=== PATIENT | female | born 1935 | race Caucasian/White ===

== ENCOUNTER → 2016-08-13 | Outpatient (CLI) | payer MEDICARE ==
[~2016-08-13] MED LIST: ASP81TEC; ASP81TEC PO; ATOR40TA; ATOR40TA PO; DCS100C PO; DIGO250T96; DIGO250T96 PO; EST.625T; EST.625T PO; ESTR42.52 VG; FERR-57 PO; FRSM40T PO; FURO40TA4 PO; HYDR-34 PO; LORA1TAB PO; MAGN-47 PO; MAGN500T4; MAGN500T4 PO; MELO-195 PO; MULT-608; MULT-856 PO; NA P133E35 PR; ONDA-42 PO; PNT40TEC PO; SCR1T1 PO; SERT25TA; SERT50TA PO; SPRN25T; SPRN25T PO; SULF1TAB38 PO; VALS80TA; VLS80C PO; WRF5T PO
[2016-08-13 11:46] LABS: BASOPHILS % (AUTO) 0 % (0-10); EOSINOPHILS # (AUTO) 0.2 10^3/uL (0.0-0.3); EOSINOPHILS % (AUTO) 1 % (0-10); LYMPHOCYTES # (AUTO) 2.5 X 10^3 (1.0-4.0); LYMPHOCYTES % (AUTO) 16 % (12-44); MEAN CORPUSCULAR HEMOGLOBIN 28 PG (25-34); MEAN CORPUSCULAR HGB CONC 32 G/DL (32-36); MEAN CORPUSCULAR VOLUME 88 FL (80-99); MEAN PLATELET VOLUME 9.9 FL (7.4-10.4); MONOCYTES # (AUTO) 1.5 X 10^3 (0.0-1.0); MONOCYTES % (AUTO) 10 % (0-12); NEUTROPHILS # (AUTO) 11.2 X 10^3 (1.8-7.8); NEUTROPHILS % (AUTO) 73 % (42-75); PLATELET COUNT 321 10^3/uL (130-400); RED BLOOD COUNT 4.73 10^6/uL (4.35-5.85); RED CELL DISTRIBUTION WIDTH 14.8 % (10.0-14.5); WHITE BLOOD COUNT 15.4 10^3/uL (4.3-11.0)
--- NOTE | 2016-08-13 12:37 | Diagnostic Imaging Report ---
INDICATION: Cough and congestion. Dyspnea. COMPARISON: 01/08/2016 FINDINGS: Frontal and lateral radiographic views of the chest were obtained and showed normal cardiac silhouette and pulmonary vasculature. Pulmonary interstitium is diffusely prominent. This however, appears to be on a chronic senescent basis. There is no alveolar consolidation, large effusion, nor pneumothorax. Bony structures show no gross acute abnormalities. IMPRESSION: 1. No acute cardiopulmonary process. Dictated by: Dictated on workstation # [id number]
[2016-08-13 12:50] LABS: BAND NEUTROPHILS 0 %; NEUTROPHILS % (MANUAL) 77 %
[2016-08-13 12:51] LABS: BASOPHILS % (MANUAL) 1 %; EOSINOPHILS % (MANUAL) 2 %; LYMPHOCYTES % (MANUAL) 15 %
== END ==
LOC: LAB 11:31
PROVIDERS: ATTEND Family Medicine
DX: R05 Cough (principal); R09.89 Other specified symptoms and signs involving the circulatory and respiratory systems
CPT/HCPCS: 36415; 71020; 85007; 85027

== ENCOUNTER → 2016-08-25 | Outpatient (CLI) | payer MEDICARE ==
[2016-08-25 12:27] LABS: ANION GAP 8 MMOL/L (5-14); BLOOD UREA NITROGEN 19 MG/DL (7-18); BUN/CREATININE RATIO 22; CALCIUM 9.2 MG/DL (8.5-10.1); CARBON DIOXIDE 28 MMOL/L (21-32); CHLORIDE 100 MMOL/L (98-107); CREATININE SERUM 0.85 MG/DL (0.60-1.30); GFR ESTIMATED > 60; GLUCOSE 91 MG/DL (70-105); POTASSIUM 4.1 MMOL/L (3.6-5.0); SODIUM 136 MMOL/L (135-145)
[2016-08-26 03:31] LABS: IGE DETAIL 21.1 IU/mL
[2016-08-26 07:34] LABS: INT IGE See Footnote
== END ==
LOC: LAB 11:37
PROVIDERS: ATTEND Internal Medicine Critical Care Medicine
DX: J43.8 Other emphysema (principal); L93.2 Other local lupus erythematosus; R06.02 Shortness of breath
CPT/HCPCS: 36415; 80048; 82785; 86038; 86430

== ENCOUNTER → 2016-10-06 | Outpatient (CLI) | payer MEDICARE ==
--- NOTE | 2016-10-07 19:22 | Diagnostic Imaging Report ---
Bilateral screening mammogram The current study was also evaluated with a Computer Aided Detection (CAD) system. Indication: Screening. No current complaints stated on the questionnaire. COMPARISON: 09/12/14 FINDINGS: The breasts are composed of scattered fibroglandular densities. Occasional benign-appearing calcifications are seen. Allowing for technique and positional differences, no suspicious change is seen. IMPRESSION: No significant change. ACR BI-RADS Category 2: Benign findings. Result letter will be mailed to the patient. Note: At least 10% of breast cancer is not imaged by mammography. Dictated by: Dictated on workstation # [id number]
== END ==
LOC: RAD 12:34
PROVIDERS: ATTEND Obstetrics & Gynecology
DX: Z12.31 Encounter for screening mammogram for malignant neoplasm of breast (principal)
CPT/HCPCS: 77067

== ENCOUNTER → 2016-10-06 | Outpatient (CLI) | payer MEDICARE ==
[~2016-10-06] MED LIST changes: +CATHETER FLUSH 10 ML SYR IV PRN; +IOHEXOL 350 MG/ML 100 ML (OMNIPAQUE 350) VIAL IV ONE; +NS 100 ML (IVPB) BAG IV ONE
--- NOTE | 2016-10-06 15:03 | Diagnostic Imaging Report ---
PROCEDURE: CT chest with contrast only. TECHNIQUE: Multiple contiguous axial images were obtained through the chest after administration of intravenous contrast. INDICATION: Shortness of breath. 75 mL of Omnipaque 350 is administered intravenously. COMPARISON: 01/22/2016. FINDINGS: Nonspecific interstitial scarring is seen in the lung bases bilaterally. There is no honeycombing. The findings are similar to 01/22/2016 with no evidence of progression. There is no significant consolidation, mass or suspicious nodule seen. A 5 mm stable nodule in the right upper lobe and another 4 mm nodule along the right major fissure are seen without change. Continued followup is recommended. There are calcified granulomas in the alireza and mediastinum with no noncalcified significantly enlarged lymph node seen otherwise. No enlarged lymph nodes in the axilla seen. The thoracic aorta is normal in caliber. The heart size is normal. No pericardial or pleural effusion seen. The osseous structures appear grossly unremarkable. IMPRESSION: 1. Nonspecific bilateral fibrotic changes in the mid and lower lung zones similar to 01/22/2016. 2. Stable nonspecific nodules up to 5 mm in size in the right upper lobe and along the right major fissure. Dictated by: Dictated on workstation # [id number]
== END ==
LOC: RAD 12:32
PROVIDERS: ATTEND Nurse Practitioner Family
DX: J84.112 Idiopathic pulmonary fibrosis (principal); R91.8 Other nonspecific abnormal finding of lung field; J45.909 Unspecified asthma, uncomplicated; J44.9 Chronic obstructive pulmonary disease, unspecified
CPT/HCPCS: 71260

== ENCOUNTER 2016-11-17 07:06 | Day surgery (SDC) | payer MEDICARE ==
[2016-11-17] VITALS (9 sets, daily range): BP systolic 133–147; BP diastolic 62–82
[~2016-11-17] VITALS: Ht 162.6 cm; Wt 78.5 kg
[~2016-11-17 07:06] MED LIST changes: -CATHETER FLUSH 10 ML SYR IV PRN; +HEParin (CATH LAB) 2,000 ML IV ONE; -IOHEXOL 350 MG/ML 100 ML (OMNIPAQUE 350) VIAL IV ONE; -NS 100 ML (IVPB) BAG IV ONE; +NS IV 1000 ML 1,000 ML ONE
[2016-11-17 07:37] LABS: MEAN PLATELET VOLUME 10.1 FL (7.4-10.4); RED BLOOD COUNT 4.98 10^6/uL (4.35-5.85); RED CELL DISTRIBUTION WIDTH 14.4 % (10.0-14.5); WHITE BLOOD COUNT 10.6 10^3/uL (4.3-11.0)
[2016-11-17] MEDS ORDERED: NS IV 1000 ML 1,000 ML IV SCH ×2 (07:45→10:52)
[2016-11-17 07:47] LABS: INR 0.9 (0.8-1.4); PROTHROMBIN TIME PATIENT 11.5 SEC (12.2-14.7)
[2016-11-17 07:56] LABS: ALANINE AMINOTRANSFERASE 25 U/L (0-55); ALBUMIN 4.2 GM/DL (3.2-4.5); ANION GAP 14 MMOL/L (5-14); ASPARTATE AMINO TRANSFERASE 24 U/L (5-34); BILIRUBIN,TOTAL 0.7 MG/DL (0.1-1.0); BLOOD UREA NITROGEN 11 MG/DL (7-18); BUN/CREATININE RATIO 14; CARBON DIOXIDE 23 MMOL/L (21-32); CHLORIDE 101 MMOL/L (98-107); CHOLESTEROL 235 MG/DL (< 200); CREATININE SERUM 0.78 MG/DL (0.60-1.30); DIRECT LDL 96 MG/DL (1-129); GFR ESTIMATED > 60; GLUCOSE 96 MG/DL (70-105); POTASSIUM 3.8 MMOL/L (3.6-5.0); SODIUM 138 MMOL/L (135-145); TOTAL PROTEIN 8.3 GM/DL (6.4-8.2); TRIGLYCERIDES 449 MG/DL (<150); VLDL CHOLESTEROL 90 MG/DL (5-40)
[2016-11-17 08:01] LABS: DIGOXIN 0.47 NG/ML (0.80-2.00)
[2016-11-17] MEDS ORDERED: ACET-2267 PO (08:30)
[2016-11-17] MEDS ORDERED: UMEC62.5 IH (08:30)
[2016-11-17] MEDS ORDERED: OMEP20CA12 PO (08:30)
[2016-11-17] MEDS ORDERED: ESTR0.5T PO (08:30)
[2016-11-17] MEDS ORDERED: FLUT1BLS IH (08:30)
[2016-11-17] MEDS ORDERED: fentaNYL INJECTION 100 MCG/2 ML AMP ONE (09:33)
[2016-11-17] MEDS ORDERED: MIDAZOLAM 5 MG/5 ML (VERSED) VIAL ONE (09:33)
[2016-11-17] MEDS ORDERED: diphenhydrAMINE 50 MG/ML INJ (BENADRYL) ONE (09:33)
--- NOTE | 2016-11-17 09:49 | Cardiac Procedure Note-CS/ASA ---
Pre-Procedure Note Pre-Op Procedure Note H&P Reviewed The H&P was reviewed, patient examined and no changes noted. Date H&P Reviewed: Nov 17, 2016 Time H&P Reviewed: 09:49 Conscious Sedation Pre-Proced Time Reviewed: 09:49 ASA Class: 3 Airway Mallampati Classification: (ass[place] and sioux appropriate class) I. II. III, IV Lungs Heart ASA score ASA 1: a normal healthy patient ASA 2: a patient with a mild systemic disease (mid diabetes, controlled hypertension, obesity ASA 3: a patient with a severe systemic disease that limits activity (angina , COPD, prior Myocardial infarction) ASA 4: a patient with an incapacitating disease that is a constant threat to life (CHF, renal failure) ASA 5: a moribund patient not expected to survive 24 hrs. (ruptured aneurysm) ASA 6: a declared brain patient whose organs are being harvested. For emergent operations, add the letter E after the classification Grade 2 Sedation Plan: Analgesia, Amnesia, Plan communicated to team members, Discussed options with patient/fam, Discussed risks with patient/fam Note The patient is an appropriate candidate to undergo the planned procedure, sedation, and anesthesia. The patient immediately re-assessed prior to indication. TRISHA WANG MD FACP FAC CCDS Nov 17, 2016 09:49
--- NOTE | 2016-11-17 10:55 | Discharge Inst-Post CATH ---
Discharge Inst-CATH Post Cardiac Cath D/C Inst Follow Up/Plan F/u with Dr Plunkett in 2-3 weeks CARDIAC CATH DISCHARGE INSTRUCTIONS *Hold Metformin for 48 hours post heart cath. ACTIVITY * Go Home directly and rest. * Limit activity of the leg (or wrist if it was used) for 7 days including aerobics, swimming, jogging, bicycling, etc. * Restrict stair-climbing for 7 days if possible, if not, climb up with your non -cath leg, then bring together on the same step. * Avoid lifting, pushing, pulling or excessive movement of the affected extremity for 7 days. * Customary sexual activity may be resumed after 2 days-use caution not to use a position that strains or causes pain to the affected extremity. * No driving for 24 hours. * NO SMOKING. * Avoid straining for bowel movements for 7 days. * Gentle walking on level ground is allowed. * Returning to work will depend on the type of procedure and the results. Your doctor will discuss this with you. CALL YOUR DOCTOR FOR ANY OF THE FOLLOWING: *If bleeding from the puncture site occurs- Apply gentle pressure to site with clean cloth and call your doctor or EMS. * If a knot or lump forms under the skin, increases in size, or causes pain. * If bruising appears to be worsening or moving further down your leg instead of disappearing. * Temperature above 101 F. CARE OF YOUR GROIN INCISION; * Bruising or purple discoloration of the skin near the puncture site is common. * You may shower only, no bathtub bathing for 5 days. Be careful to avoid slipping as your leg may feel stiff. * If a closure device was used on your femoral artery, please see the attached guide regarding care of the device and your leg. * REMOVE the dressing from your groin the next day after your procedure in the shower. CARE OF YOUR WRIST INCISION; * Bruising or purple discoloration of the skin near the puncture site is common. * You may shower. * DO NOT submerge wrist. * Remove dressing in 24 hours. TRISHA PLUNKETT MD [facility] CCDS Nov 17, 2016 10:55
--- NOTE | 2016-11-17 10:56 | Discharge Inst-Cardiology ---
Discharge Inst-Cardiac Discharge Medications Continued Medications: Acetaminophen (Tylenol Extra Strength) 500 Mg Tablet 500-1000 MG PO Q4H PRN for PAIN-MILD, TAB Aspirin (Aspirin Ec 81 Mg) 81 Mg Tabec 81 MG PO DAILY, TAB Digoxin (Lanoxin 0.25 Mg) 0.25 Mg Tab 0.25 MG PO HS, TAB Estradiol (Estradiol Tablet) 0.5 Mg Tablet 0.5 MG PO DAILY, TAB Fluticasone/Vilanterol (Breo Ellipta 200-25 Mcg INH) 1 Each Blst.w.dev 1 PUFF IH DAILY Furosemide (Lasix Tab) 40 Mg Tab 40 MG PO DAILY PRN for SWELLING, TAB Multivits W-Fe,Other Min/Lut (Centrum Silver Ultra Women Tab) 1 Each Tablet 1 TAB PO DAILY, TAB Omeprazole (Omeprazole) 20 Mg Capsule.dr 20 MG PO DAILY, CAP Sertraline Hcl (Zoloft) 50 Mg Tablet 25 MG PO DAILY, TAB TAKES 1/2 (50MG) TABLET Umeclidinium Grover (Incruse Ellipta) 62.5 Mcg Blst.w.dev 1 PUFF IH HS Valsartan (Diovan 80 Mg) 80 Mg Tablet 80 MG PO DAILY, TAB TRISHA WANG MD FACP FAC CCDS Nov 17, 2016 10:56
[2016-11-17] MEDS ORDERED: PATIENT MAY USE OWN MEDS, ALL PO SCH (11:00)
--- NOTE | 2016-11-17 12:29 | CARDIAC CATHETERIZATION ---
DATE OF SERVICE: 11/17/2016 CARDIAC CATHETERIZATION The patient is an 81-year-old lady who has been experiencing increasing shortness of breath. This has progressed to the point where she feels short of breath, at least to some degree, even at rest. Complete heart catheterization was recommended and carried out today after having obtained an informed consent. PROCEDURE: She was brought to the cardiac catheterization laboratory in a fasting state. Right groin was prepared and draped in the usual sterile fashion. Lidocaine 1% for local anesthesia. Modified Seldinger technique was used to advance a 5-Guamanian sheath in the right femoral artery and a 7 Guamanian sheath in right femoral vein. A 7-Guamanian Henderson-Matthew catheter was used to carry out right heart catheterization and to measure oxygen saturation in the various heart chambers. The Henderson-Matthew catheter was then removed. The arterial sheath was used to advance a 5-Guamanian pigtail catheter into the left ventricle. Left heart pressures were measured. Left ventricular angiography was carried out. The catheter was pulled back to the ascending aorta and then removed. A 5-Guamanian and JL4 catheter for left coronary angiography. A 5-Guamanian JR4 catheter for right coronary angiography. A 5-Guamanian pigtail catheter was used for left heart catheterization and left ventricular angiography. At the end of the procedure, angiography of the right femoral artery was carried out through the sheath. Mynx was used to achieve hemostasis. She tolerated the procedure well. HEMODYNAMICS: Pulmonary artery pressure was 31/10 with a mean of 17 mmHg. Mean pulmonary wedge pressure was 4 mmHg. Right ventricular pressure was 32/3. Right atrial mean pressure was 3. Left ventricular end-diastolic pressure was 10 mmHg. There was no significant pressure gradient on pullback across the aortic valve. Ascending aortic pressure was 141/73 with a mean of 101 mmHg. Cardiac output by thermodilution was 4.03. Cardiac index by thermodilution was 2.19. Oxygen saturation was measured in the various right heart chambers and there was no evidence of any significant difference between the right heart chambers. Thus, there was no evidence of any significant intracardiac shunt. LEFT VENTRICULAR ANGIOGRAPHY: Left ventricular angiography was carried out in the right anterior oblique projection. Global left ventricular systolic function is normal. Left ventricular ejection fraction is approximately 60%. There does not appear to be significant mitral regurgitation. CORONARY ANGIOGRAPHY: Left main coronary artery, left anterior descending artery, left circumflex artery, and right coronary artery are all free of angiographically significant disease. The right coronary artery is dominant. CONCLUSIONS: 1. No angiographically significant coronary artery disease. 2. Normal global left ventricular systolic function with ejection fraction approximately 60%. 3. Normal right heart pressures. 4. Normal left ventricular end diastolic pressure. DISCUSSION AND RECOMMENDATIONS: Based on the results of the study, shortness of breath does not appear to be of cardiac origin. Continuing risk factor modification is advised. Outpatient followup is advised. Job ID: [id number] DocumentID: [id number] Dictated Date: 11/17/2016 10:49:34 Ammonia Worker Date: 11/17/2016 11:39:36 Dictated By: TRISHA WANG MD, MA, FACP, FACC,
== END 2016-11-17 14:00 | disposition home or self-care (01) ==
LOC: CATH 07:06 → SURG 11:13 → CATH 14:00
PROVIDERS: ATTEND Internal Medicine Cardiovascular Disease
DX: R06.02 Shortness of breath (principal); I25.10 Atherosclerotic heart disease of native coronary artery without angina pectoris; E78.1 Pure hyperglyceridemia; I44.7 Left bundle-branch block, unspecified; I47.1 Supraventricular tachycardia; J45.909 Unspecified asthma, uncomplicated; F32.9 Major depressive disorder, single episode, unspecified; Z79.899 Other long term (current) drug therapy
CPT/HCPCS: 36415; 80053; 80061; 80162; 82810; 85027; 85610; 85730; 87081; 93005; 93460

== ENCOUNTER 2017-01-07 10:00 | Outpatient (RCR) | payer MEDICARE ==
[~2017-01-07 10:00] MED LIST changes: +ACET-2267 PO; +ESTR0.5T PO; +FLUT1BLS IH; -HEParin (CATH LAB) 2,000 ML IV ONE; -NS IV 1000 ML 1,000 ML ONE; +OMEP20CA12 PO; +UMEC62.5 IH
== END 2017-01-09 | disposition home or self-care (01) ==
LOC: PULM 10:00
PROVIDERS: ATTEND Nurse Practitioner Family
DX: R06.02 Shortness of breath; J45.909 Unspecified asthma, uncomplicated; J44.9 Chronic obstructive pulmonary disease, unspecified; I27.2 Other secondary pulmonary hypertension
CPT/HCPCS: 99211

== ENCOUNTER 2017-02-16 10:00 | Outpatient (RCR) | payer MEDICARE, OTHER | END 2017-04-12 | disposition home or self-care (01) | LOC: PULM 10:00 | PROVIDERS: ATTEND Nurse Practitioner Family | DX: J44.9 Chronic obstructive pulmonary disease, unspecified (principal); J45.909 Unspecified asthma, uncomplicated; R06.02 Shortness of breath; I27.20 Pulmonary hypertension, unspecified ==

== ENCOUNTER → 2017-03-13 | Outpatient (CLI) | payer MEDICARE ==
--- NOTE | 2017-03-13 17:21 | Diagnostic Imaging Report ---
INDICATION: Knee pain after fall. EXAMINATION: Four views of the right knee were obtained. FINDINGS: There is moderate three compartment osteoarthritic change. There is no fracture or dislocation. Soft tissues are unremarkable. IMPRESSION: Moderately severe three compartment osteoarthritic change. Dictated by: Dictated on workstation # [id number]
== END ==
LOC: RAD 16:47
PROVIDERS: ATTEND Nurse Practitioner Family
DX: M17.11 Unilateral primary osteoarthritis, right knee (principal)
CPT/HCPCS: 73564

== ENCOUNTER → 2017-09-20 | Outpatient (CLI) | payer MEDICARE, OTHER ==
[~2017-09-20] MED LIST changes: +IOHEXOL 350 MG/ML 100 ML (OMNIPAQUE 350) VIAL IV ONE; +NS 250 ML (IVPB) BAG IV ONE
[2017-09-20 10:17] LABS: BUN/CREATININE RATIO 18; CREATININE SERUM 0.79 MG/DL (0.60-1.30); GFR ESTIMATED > 60
--- NOTE | 2017-09-20 10:49 | Diagnostic Imaging Report ---
PROCEDURE: CT chest with contrast only. TECHNIQUE: Multiple contiguous axial images were obtained through the chest after administration of intravenous contrast. INDICATION: Emphysematous bronchitis. Pulmonary nodules. COMPARISON: CTA chest 01/22/2016. CT chest with IV contrast 10/06/2016. FINDINGS: Moderate emphysematous changes both lungs. Reticular interstitial opacities in the peripheral lungs are greatest in the lung bases and lingula. No definite honeycombing. Solid pulmonary nodule in the right upper lobe measuring 0.5 cm (series 2, image 25). Solid pulmonary nodule along the right major fissure measuring 0.3 cm (image 26). Solid pulmonary nodule in the right middle lobe measuring 0.5 cm (image 33). Solid pulmonary nodule in the right lower lobe measuring 0.5 cm (image 41). No new pulmonary nodules. No endobronchial lesions. No pleural effusion or pneumothorax. Prominent mediastinal lymph nodes measuring up to 1.0 cm in short axis dimension and are stable. No hilar or axillary lymphadenopathy. Normal caliber thoracic aorta and main pulmonary arteries. Normal heart size. No pericardial effusion. The visualized upper abdominal contents are unremarkable. No acute osseous findings. IMPRESSION: Overall stable exam including nonspecific fibrotic changes, emphysema prominent mediastinal lymph nodes and pulmonary nodules. No acute CT findings in the chest. No new pulmonary nodule or mass. Dictated by: Dictated on workstation # [id number]
== END ==
LOC: RAD 09:41
PROVIDERS: ATTEND Nurse Practitioner Family
DX: J44.9 Chronic obstructive pulmonary disease, unspecified (principal); R91.8 Other nonspecific abnormal finding of lung field; J84.112 Idiopathic pulmonary fibrosis
CPT/HCPCS: 36415; 71260; 82565; 84520

== ENCOUNTER → 2017-09-23 | Outpatient (CLI) | payer MEDICARE, OTHER ==
[~2017-09-23] MED LIST changes: -IOHEXOL 350 MG/ML 100 ML (OMNIPAQUE 350) VIAL IV ONE; -NS 250 ML (IVPB) BAG IV ONE
--- NOTE | 2017-09-23 19:17 | Diagnostic Imaging Report ---
INDICATION: Routine screening. Comparison is made with prior exam from 10/06/2016 and 09/12/2014. 2-D and 3-D bilateral screening mammography was performed with CAD. The current study was also evaluated with a Computer Aided Detection (CAD) system. FINDINGS: Scattered fibronodular densities are identified bilaterally. The parenchymal pattern is stable. No dominant mass or malignant-appearing microcalcifications are seen. The axillae are unremarkable. IMPRESSION: No mammographic features suspicious for malignancy are identified. ACR BI-RADS Category 1: Negative. Result letter will be mailed to the patient. Note: At least 10% of breast cancer is not imaged by mammography. Dictated by: Dictated on workstation # [id number]
== END ==
LOC: RAD 09:16
PROVIDERS: ATTEND Obstetrics & Gynecology
DX: Z12.31 Encounter for screening mammogram for malignant neoplasm of breast (principal)
CPT/HCPCS: 77067

== ENCOUNTER → 2018-01-31 | Outpatient (CLI) | payer MEDICARE, OTHER ==
[2018-01-31 15:35] LABS: BUN/CREATININE RATIO 15; CREATININE SERUM 0.82 MG/DL (0.60-1.30); GFR ESTIMATED > 60
== END ==
LOC: LAB 15:11
PROVIDERS: ATTEND Family Medicine
DX: N28.9 Disorder of kidney and ureter, unspecified (principal)
CPT/HCPCS: 36415; 82565; 84520

== ENCOUNTER → 2018-02-01 | Outpatient (CLI) | payer MEDICARE, OTHER ==
[~2018-02-01] MED LIST changes: +IOHEXOL 350 MG/ML 100 ML (OMNIPAQUE 350) VIAL IV ONE; +NS 250 ML (IVPB) BAG IV ONE
--- NOTE | 2018-02-01 10:29 | Diagnostic Imaging Report ---
PROCEDURE: CT abdomen and pelvis with contrast. TECHNIQUE: Multiple contiguous axial images were obtained through the abdomen and pelvis after administration of intravenous contrast. DATE: February 01, 2018. COMPARISON: CT abdomen/pelvis of December 08, 2014. INDICATION: 82-year-old female, abdominal pain, bloating, diarrhea. Constipation. FINDINGS: There are peripheral reticular opacities in the visualized lung bases which potentially may reflect changes of interstitial lung disease, atelectasis, and/or scarring. There is no identified focal airspace consolidation within the visualized portions of the lungs. The heart is not enlarged. There is no pericardial effusion. There are atherosclerotic calcifications. The liver is normal in size and contour. There is no identified liver lesion. The main, right, and left portal veins are patent. The gallbladder is unremarkable. There is no intrahepatic or extrahepatic bile duct dilation. The main pancreatic duct is not abnormally dilated. Unremarkable appearance of the pancreatic parenchyma. The spleen is normal in size. The adrenal glands are unremarkable. Unremarkable appearance of the renal parenchyma. The urinary collecting systems are not distended. There is no identified renal or ureteral stone. The urinary bladder is unremarkable in appearance. The uterus is not seen and may be surgically absent. There is fatty wall thickening of the lower aspect of the right colon, compatible with changes of chronic colitis. There is no evidence of an active colitis. The appendix is not well seen. There are no secondary findings to suggest acute appendicitis. There is no free intraperitoneal air. There is no drainable fluid collection. There is no free pelvic fluid. There is no identified abnormally enlarged lymph node within the abdomen or pelvis which specifically meets CT size criteria for adenopathy. There are multilevel degenerative changes of the spine. There is grade 1 anterolisthesis of L3 on L4 relating to facet degenerative changes. There is no identified acute bony abnormality. IMPRESSION: 1. Fatty wall thickening of the lower aspect of the right colon, compatible with changes of chronic colitis. No evidence of active colitis. 2. No identified acute abnormality within the abdomen or pelvis. 3. Peripheral reticular opacities in the visualized lung bases which at least likely relate in part to interstitial lung disease. Dictated by: Dictated on workstation # [id number]
== END ==
LOC: RAD 07:59
PROVIDERS: ATTEND Family Medicine
DX: K63.89 Other specified diseases of intestine (principal); K59.00 Constipation, unspecified
CPT/HCPCS: 74177

== ENCOUNTER → 2018-07-25 | Outpatient (CLI) | payer MEDICARE, OTHER ==
[~2018-07-25] MED LIST changes: -IOHEXOL 350 MG/ML 100 ML (OMNIPAQUE 350) VIAL IV ONE; -NS 250 ML (IVPB) BAG IV ONE
[2018-07-25 08:53] LABS: BASOPHILS % (AUTO) 0 % (0-10); EOSINOPHILS # (AUTO) 0.3 10^3/uL (0.0-0.3); EOSINOPHILS % (AUTO) 4 % (0-10); HEMATOCRIT 42 % (35-52); HEMOGLOBIN 13.2 G/DL (11.5-16.0); LYMPHOCYTES # (AUTO) 2.8 X 10^3 (1.0-4.0); LYMPHOCYTES % (AUTO) 36 % (12-44); MEAN CORPUSCULAR HEMOGLOBIN 28 PG (25-34); MEAN CORPUSCULAR HGB CONC 32 G/DL (32-36); MEAN CORPUSCULAR VOLUME 87 FL (80-99); MEAN PLATELET VOLUME 9.9 FL (7.4-10.4); MONOCYTES # (AUTO) 0.6 X 10^3 (0.0-1.0); MONOCYTES % (AUTO) 8 % (0-12); NEUTROPHILS % (AUTO) 52 % (42-75); PLATELET COUNT 323 10^3/uL (130-400); RED CELL DISTRIBUTION WIDTH 14.5 % (10.0-14.5); WHITE BLOOD COUNT 7.7 10^3/uL (4.3-11.0)
[2018-07-25 09:06] LABS: ALANINE AMINOTRANSFERASE 24 U/L (0-55); ALBUMIN 4.2 GM/DL (3.2-4.5); ALKALINE PHOSPHATASE 37 U/L (40-136); BILIRUBIN,TOTAL 0.6 MG/DL (0.1-1.0); BUN/CREATININE RATIO 17; CARBON DIOXIDE 25 MMOL/L (21-32); CHLORIDE 103 MMOL/L (98-107); CHOLESTEROL 226 MG/DL (< 200); CREATININE SERUM 0.76 MG/DL (0.60-1.30); GFR ESTIMATED > 60; GLUCOSE 92 MG/DL (70-105); HDL CHOLESTEROL 46 MG/DL (40-60); MAGNESIUM 2.2 MG/DL (1.8-2.4); POTASSIUM 4.4 MMOL/L (3.6-5.0); SODIUM 137 MMOL/L (135-145); TRIGLYCERIDES 320 MG/DL (<150); VLDL CHOLESTEROL 64 MG/DL (5-40)
[2018-07-25 09:31] LABS: ERYTHROCYTE SEDIMENTATION RATE 36 MM/HR (0-30)
== END ==
LOC: LAB 08:12
PROVIDERS: ATTEND Internal Medicine Cardiovascular Disease
DX: R06.02 Shortness of breath (principal); E78.5 Hyperlipidemia, unspecified; I10 Essential (primary) hypertension
CPT/HCPCS: 36415; 80053; 80061; 80162; 83735; 84443; 85025; 85652

== ENCOUNTER → 2018-09-26 | Outpatient (CLI) | payer MEDICARE, OTHER ==
--- NOTE | 2018-09-26 10:56 | Diagnostic Imaging Report ---
INDICATION: Routine screening. COMPARISON: 09/23/2017 and 10/06/2016. TECHNIQUE: 2D and 3D bilateral screening mammography was performed with CAD. FINDINGS: Scattered fibroglandular densities are identified bilaterally. The parenchymal pattern is stable. No mass or malignant appearing microcalcifications are seen. The axillae are unremarkable. IMPRESSION: No mammographic features suspicious for malignancy are identified. ACR BI-RADS Category 1: Negative. Result letter will be mailed to the patient. Note: At least 10% of breast cancer is not imaged by mammography. Dictated by: Dictated on workstation # [id number]
== END ==
LOC: RAD 08:41
PROVIDERS: ATTEND Obstetrics & Gynecology
DX: Z12.31 Encounter for screening mammogram for malignant neoplasm of breast (principal)
CPT/HCPCS: 77067

== ENCOUNTER 2018-10-05 13:30 | Outpatient (CLI) | payer MEDICARE ==
[~2018-10-05] VITALS: Ht 162.6 cm; Wt 78.5 kg
[2018-10-05] MEDS ORDERED: CETI10TA20 PO (13:52)
[2018-10-05] MEDS ORDERED: LOSA50TA63 PO (13:52)
[2018-10-05] MEDS ORDERED: SERT100T8 PO (13:52)
[2018-10-05] MEDS ORDERED: MULT-1021 PO (13:59)
[2018-10-05] MEDS ORDERED: ASPI-999 PO (13:59)
[2018-10-05] MEDS ORDERED: FURO40TA4 PO (13:59)
[2018-10-05] MEDS ORDERED: DIGO250T PO (13:59)
== END 2018-10-05 14:02 ==
LOC: PREOP 13:30
PROVIDERS: ATTEND Surgery
DX: Z01.818 Encounter for other preprocedural examination (principal)

== ENCOUNTER 2018-10-11 08:54 | Day surgery (SDC) | payer MEDICARE, OTHER ==
[~2018-10-11] VITALS: Ht 162.6 cm; Wt 78.5 kg
[~2018-10-11 08:54] MED LIST changes: +ASPI-999 PO; +CETI10TA20 PO; +DIGO250T PO; +LOSA50TA63 PO; +MULT-1021 PO; +SERT100T8 PO
[2018-10-11] MEDS ORDERED: LACTATED RINGERS 1,000 ML IV STA (09:02)
[2018-10-11] MEDS ORDERED: LACTATED RINGERS 1,000 ML IV ONE (09:06)
[2018-10-11] MEDS ORDERED: HURRICAINE EXT TUBE (BENZOCAINE) XX PRN (09:15)
--- NOTE | 2018-10-11 09:32 | Progress Note-Pre Operative ---
Pre-Operative Progress Note H&P Reviewed The H&P was reviewed, patient examined and no changes noted. Date Seen by Provider: Oct 11, 2018 Time Seen by Provider: 09:32 Date H&P Reviewed: Oct 11, 2018 Time H&P Reviewed: 09:32 Pre-Operative Diagnosis: change in bowel habits, blood in stool, periumbilical abd pain, gerd REINIER ADEN DO Oct 11, 2018 09:32
[2018-10-11 09:33] VITALS: BP 141/79
[2018-10-11] MEDS ORDERED: LIDOCAINE PF 2% 5 ML (XYLOCAINE) VIAL ONE (09:38)
[2018-10-11] MEDS ORDERED: MIDAZOLAM 2 MG/2 ML (VERSED) VIAL ONE (09:38)
[2018-10-11] MEDS ORDERED: fentaNYL INJECTION 100 MCG/2 ML AMP ONE (09:38)
[2018-10-11] MEDS ORDERED: proPOfol 200 MG/20 ML (DIPRIVAN) VIAL IV ONE (09:38)
--- NOTE | 2018-10-11 10:27 | Progress Note-Post Operative ---
Post-Operative Progess Note Surgeon (s)/Putty Remover (s) Surgeon REINIER ADEN DO Putty Remover: na Pre-Operative Diagnosis change in bowel habits, blood in stool, periumbilical abd pain, gerd Post-Operative Diagnosis small hiatal hernia, hemorrhoids Procedure & Operative Findings Date of Procedure 10/11/18 Procedure Performed/Findings egd c biopsies, colonoscopy Anesthesia Type per jet wiper Estimated Blood Loss Estimated blood loss (mL): none Specimens/Packing Specimens Removed antrum, ge REINIER ADEN DO Oct 11, 2018 10:27
[2018-10-11] MEDS ORDERED: OMEP20TA7 PO (10:29)
--- NOTE | 2018-10-11 10:30 | Discharge Inst-Simple/Standard ---
Discharge Inst-Standard Patient Instructions/Follow Up Plan of Care/Instructions/FU: 2 weeks Raeann Activity as Tolerated: Yes Discharge Diet: Regular Diet REINIER ADEN DO Oct 11, 2018 10:30
[2018-10-11 10:35] VITALS: BP 128/70
--- NOTE | 2018-10-11 10:42 | Anesthesia-General Post-Op ---
MAC Patient Condition Mental Status/LOC: Same as Preop Cardiovascular: Satisfactory Nausea/Vomiting: Absent Respiratory: Satisfactory Pain: Controlled Complications: Absent Post Op Complications Complications None Follow Up Care/Instructions Patient Instructions None needed. Anesthesiology Discharge Order Discharge Order Patient is doing well, no complaints, stable vital signs, no apparent adverse anesthesia problems. No complications reported per nursing. TRINIDAD CORNELIUS CRNA Oct 11, 2018 10:42
--- OUTSIDE RECORDS SUMMARY | 2018-10-11 10:52 | XMS REPORT ---
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
--- OUTSIDE RECORDS SUMMARY | 2018-10-11 10:52 | XMS REPORT ---
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 Role Phone LEE MEZA Unavailable PROBLEMS Unknown Problems ALLERGIES Substance Reaction Event Type Date Status Sulfacet-R Unknown Drug Allergy Dec, Active Penicillin V Potassium Unknown Drug Allergy Dec, Active ENCOUNTERS Encounter Location Date Diagnosis [facility] [address] [place] [address] [phone] Dec, Caries of dentin K02.62 [facility] [id number] [place] [address] [id number] Nov, Dental examination Z01.20 [facility] [id number] [place] [address] [id number] Apr, Dental examination Z01.20 [facility] [address] [id number] [place] [address] [id number] Mar, Dental examination Z01.20 [facility] [id number] [place] [address] [id number] Apr, Dental examination Z01.20 [facility] [id number] [place] [address] [id number] Oct, Dental examination Z01.20 [facility] [address] [id number] [place] [address] [id number] August, Dental examination Z01.20 [facility] [address] [id number] [place] [address] [id number] Dec, Dental examination V72.2 [facility] [address] [id number] [place] [address] [id number] Oct, Dental examination V72.2 [facility] [address] [id number] [place] [address] [id number] Oct, Dental examination V72.2 [facility] [address] [id number] [place] [phone] August, Dental examination V72.2 IMMUNIZATIONS No Known Immunizations SOCIAL HISTORY Never Assessed REASON FOR VISIT Restorative - DERRICK berry PLAN OF CARE Activity Details Follow Up recall, prn Reason: VITAL SIGNS Blood pressure systolic 130 mmHg 2017-12-16 Blood pressure diastolic 74 mmHg 2017-12-16 MEDICATIONS Medication Instructions Dosage Frequency Start Date End Date Duration Status Sertraline HCl 25 MG Orally Once a day 1 tablet 24h Active Diovan 80 MG Orally Once a day 1 tablet 24h Not-Taking Zoloft 25 MG Orally Once a day 1 tablet 24h Not-Taking Aspirin 81 MG Orally Once a day 1 tablet 24h Active Digoxin 250 MCG Orally Once a day 1 tablet 24h Active Tylenol Oral prn 1 tab Not-Taking lasix Oral twice weekly with 3 days between shampoos 1 tab Active Centrum Not-Taking Estradiol 0.5 MG Orally Once a day 1 tablet 24h Active RESULTS No Results PROCEDURES Procedure Date Ordered Result Body Site RESIN COMPOS - 2 SURFACES POSTERIOR Dec 16, 2017 INSTRUCTIONS MEDICATIONS ADMINISTERED No Known Medications MEDICAL (GENERAL) HISTORY Type Description Date Medical History hypertensive heart disease Medical History joint replacement, knee replacement Medical History blood thinners aspirin 81mg Medical History arthritis Medical History pt is taking [place] Surgical History knee replacement Left 2011 Surgical History female type surgeries [id number] Hospitalization History knee surgery 2010 Hospitalization History chest discomfort released with medication 2014
--- OUTSIDE RECORDS SUMMARY | 2018-10-11 10:52 | XMS REPORT ---
Author Author KIM RICHMOND Organization [employer] Address Unknown Phone Unavailable Care Team Providers Care [facility] Manager Name Role Phone KIM RICHMOND CP Unavailable Allergies, Adverse Reactions, Alerts Substance Reaction Event Type Sulfacet-R Info Not Available Drug Allergy Penicillin V Potassium Info Not Available Drug Allergy Problems Problem Type Condition Code Onset Dates Condition Status Assessment Dental examination Z01.20 Active Medications Medication Code System Code Instructions Start Date End Date Status Dosage lasix NDC 0 Oral twice weekly with 3 days between shampoos 1 tab Diovan [facility] [address]-61 80 MG Orally Once a day 1 tablet Estradiol [facility] [address]-94 0.5 MG Orally Once a day 1 tablet Centrum [facility] [address]-91 Orally not defined Zoloft [facility] [address]-26 25 MG Orally Once a day 1 tablet Aspirin [facility] [address]-29 81 MG Orally Once a day 1 tablet Digoxin [facility] [address]-26 250 MCG Orally Once a day 1 tablet Tylenol NDC 0 Oral prn 1 tab Procedures Procedure Coding System Code Date RESIN COMPOS - 3 SURFACES ANTERIOR CPT-4 D2332 November 05, 2015 Vital Signs Date/Time: November 05, 2015 Blood Pressure Diastolic 67 mmHg Blood Pressure Systolic 116 mmHg Results No Known Results Summary Purpose [employer] Submission
--- OUTSIDE RECORDS SUMMARY | 2018-10-11 10:52 | XMS REPORT ---
Author Author SUSANALEE Julian [facility] Address Unknown Care Team Providers Care Object Oriented Programmer Name Role Phone LEE MEZA Unavailable PROBLEMS Unknown Problems ALLERGIES Substance Reaction Event Type Date Status Sulfacet-R Unknown Drug Allergy Nov, Active Penicillin V Potassium Unknown Drug Allergy Nov, Active ENCOUNTERS Encounter Location Date Diagnosis [facility] [address] [place] [address] [phone] Dec, Caries of dentin K02.62 [facility] [address] [place] [address] [phone] Nov, Dental examination Z01.20 [facility] [id number] [place] [address] [id number] Apr, Dental examination Z01.20 [facility] [address] [id number] [place] [address] [phone] Mar, Dental examination Z01.20 [facility] [address] [id number] [place] [address] [phone] Apr, Dental examination Z01.20 [facility] [id number] [place] [address] [phone] Oct, Dental examination Z01.20 [facility] [address] [id number] [place] [address] [phone] August, Dental examination Z01.20 [facility] [address] [id number] [place] [address] [phone] Dec, Dental examination V72.2 [facility] [address] [id number] [place] [address] [phone] Oct, Dental examination V72.2 [facility] [id number] [place] [address] [phone] Oct, Dental examination V72.2 [facility] [address] [id number] [place] [phone] August, Dental examination V72.2 IMMUNIZATIONS No Known Immunizations SOCIAL HISTORY Never Assessed REASON FOR VISIT Restorative/twest PLAN OF CARE Activity Details Follow Up prn Reason:filling #28 VITAL SIGNS Blood pressure systolic 134 mmHg 2017-12-09 Blood pressure diastolic 80 mmHg 2017-12-09 MEDICATIONS Medication Instructions Dosage Frequency Start Date End Date Duration Status lasix Oral twice weekly with 3 days between shampoos 1 tab Active Aspirin 81 MG Orally Once a day 1 tablet 24h Active Sertraline HCl 25 MG Orally Once a day 1 tablet 24h Active Diovan 80 MG Orally Once a day 1 tablet 24h Not-Taking Estradiol 0.5 MG Orally Once a day 1 tablet 24h Active Tylenol Oral prn 1 tab Not-Taking Zoloft 25 MG Orally Once a day 1 tablet 24h Not-Taking Digoxin 250 MCG Orally Once a day 1 tablet 24h Active Centrum Not-Taking RESULTS No Results PROCEDURES Procedure Date Ordered Result Body Site RESIN COMPOS - 3 SURFACES ANTERIOR Dec 09, 2017 INSTRUCTIONS MEDICATIONS ADMINISTERED No Known Medications MEDICAL (GENERAL) HISTORY Type Description Date Medical History hypertensive heart disease Medical History joint replacement, knee replacement Medical History blood thinners aspirin 81mg Medical History arthritis Medical History pt is taking [place] Surgical History knee replacement Left 2011 Surgical History female type surgeries 0732-1344 Hospitalization History knee surgery 2010 Hospitalization History chest discomfort released with medication 2014
--- OUTSIDE RECORDS SUMMARY | 2018-10-11 10:52 | XMS REPORT ---
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 Reconnaissance Vehicle Driver Name Role Phone ALCON BOONE Unavailable Unavailable PROBLEMS Unknown Problems ALLERGIES Substance Reaction Event Type Date Status Sulfacet-R Unknown Drug Allergy Mar, Active Penicillin V Potassium Unknown Drug Allergy Mar, Active ENCOUNTERS Encounter Location Date Diagnosis [facility] [address] [place] [address] [phone] Apr, Dental examination Z01.20 [facility] [address] [id number] [place] [address] [phone] Mar, Dental examination Z01.20 [facility] [address] [id number] [place] [address] [phone] Apr, Dental examination Z01.20 [facility] [address] [id number] [place] [address] [id number] Oct, Dental examination Z01.20 [facility] [id number] [place] [address] [phone] August, Dental examination Z01.20 [facility] [address] [id number] [place] [address] [phone] Dec, Dental examination V72.2 [facility] [address] [id number] [place] [address] [id number] Oct, Dental examination V72.2 [facility] [address] [id number] [place] [address] [id number] Oct, Dental examination V72.2 [facility] [address] [id number] [place] [address] [phone] August, Dental examination V72.2 IMMUNIZATIONS No Known Immunizations SOCIAL HISTORY Never Assessed REASON FOR VISIT PROPHY PLAN OF CARE Activity Details Follow Up michelle Reason:abhijeet VITAL SIGNS Blood pressure systolic 123 mmHg 2017-04-08 Blood pressure diastolic 61 mmHg 2017-04-08 MEDICATIONS Medication Instructions Dosage Frequency Start Date End Date Duration Status Estradiol 0.5 MG Orally Once a day 1 tablet 24h Active Aspirin 81 MG Orally Once a day 1 tablet 24h Active Sertraline HCl 25 MG Orally Once a day 1 tablet 24h Active Tylenol Oral prn 1 tab Not-Taking lasix Oral twice weekly with 3 days between shampoos 1 tab Active Digoxin 250 MCG Orally Once a day 1 tablet 24h Active Zoloft 25 MG Orally Once a day 1 tablet 24h Not-Taking Diovan 80 MG Orally Once a day 1 tablet 24h Not-Taking Centrum Not-Taking RESULTS No Results PROCEDURES Procedure Date Ordered Result Body Site INTRAORL-PERIAPICAL 1 FILM 48149 Apr 08, 2017 INTRAORL-PERIAPICAL EA ADD FILM Apr 08, 2017 BITEWINGS - FOUR FILMS Apr 08, 2017 INTRAORL-PERIAPICAL EA ADD FILM Apr 08, 2017 TOPICAL FLUORIDE VARNISH Apr 08, 2017 PROPHYLAXIS - ADULT Apr 08, 2017 INSTRUCTIONS MEDICATIONS ADMINISTERED No Known Medications MEDICAL (GENERAL) HISTORY Type Description Date Medical History hypertensive heart disease Medical History joint replacement, knee replacement Medical History blood thinners aspirin 81mg Medical History arthritis Medical History pt is taking [place] Surgical History knee replacement Left 2011 Surgical History female type surgeries 3604-6461 Hospitalization History knee surgery 2010 Hospitalization History chest discomfort released with medication 2014
--- OUTSIDE RECORDS SUMMARY | 2018-10-11 10:52 | XMS REPORT ---
Author Author KIM RICHMOND Organization [employer] Address Unknown Phone Unavailable Care Team Providers Care Jumpbasting Collar Baster Name Role Phone KIM RICHMOND CP Unavailable Allergies No Known Allergies Problems Problem Type Condition ICD-9 Code Onset Dates Condition Status Assessment Dental examination V72.2 Active Medications No Known Medications Procedures Procedure Coding System Code Date INTRAORL-PERIAPICAL 1 FILM 83793 CPT-4 D0220 October 22, 2014 EXTRAC ERUPTED TOOTH/EXPOSED ROOT CPT-4 D7140 October 22, 2014 LTD ORAL EVALUATION - PROBLEM FOCUS CPT-4 D0140 October 22, 2014 Results No Known Results Summary Purpose [employer] Submission
--- OUTSIDE RECORDS SUMMARY | 2018-10-11 10:52 | XMS REPORT ---
Author Author ALCON DRAPER Organization [employer] Address Unknown Phone Unavailable Care Team Providers Care Band And Cuff Cutter Name Role Phone ALCON DRAPER CP Unavailable Allergies, Adverse Reactions, Alerts Substance Reaction Event Type Sulfacet-R Info Not Available Drug Allergy Penicillin V Potassium Info Not Available Drug Allergy Problems Problem Type Condition Code Onset Dates Condition Status Assessment Dental examination V72.2 Active Medications Medication Code System Code Instructions Start Date End Date Status Dosage Estradiol [facility] [address]-74 0.5 MG Orally Once a day 1 tablet Diovan [facility] [address]-31 80 MG Orally Once a day 1 tablet Aspirin [facility] [address]-78 81 MG Orally Once a day 1 tablet Zoloft [facility] [address]-44 25 MG Orally Once a day 1 tablet Centrum [facility] [address]-05 Orally not defined Tylenol NDC 0 Oral prn 1 tab Digoxin [facility] [address]-75 250 MCG Orally Once a day 1 tablet lasix NDC 0 Oral twice weekly with 3 days between shampoos 1 tab Procedures Procedure Coding System Code Date Periodontal maint procedures CPT-4 D4910 Jan 07, 2015 TOPICAL FLUORIDE VARNISH CPT-4 D1206 Jan 07, 2015 PERIODIC ORAL EXAMINATION CPT-4 D0120 Jan 07, 2015 Vital Signs Date/Time: Jan 07, 2015 Blood Pressure Diastolic 72 mmHg Blood Pressure Systolic 141 mmHg Results No Known Results Summary Purpose [employer] Submission
--- OUTSIDE RECORDS SUMMARY | 2018-10-11 10:52 | XMS REPORT ---
Author Author EMIL Bennett [facility] Address Unknown Care Team Providers Care Health And Safety Coordinator Name Role Phone EMIL Bennett Unavailable PROBLEMS Unknown Problems ALLERGIES Substance Reaction Event Type Date Status Sulfacet-R Unknown Drug Allergy Apr, Active Penicillin V Potassium Unknown Drug Allergy Apr, Active SOCIAL HISTORY No smoking Hx information available PLAN OF CARE Activity Details Follow Up prn Reason:abhijeet/hygiene VITAL SIGNS Blood pressure systolic 152 mmHg 2016-05-11 Blood pressure diastolic 82 mmHg 2016-05-11 MEDICATIONS Medication Instructions Dosage Frequency Start Date End Date Duration Status Sertraline HCl 25 MG Orally Once a day 1 tablet 24h Active Digoxin 250 MCG Orally Once a day 1 tablet 24h Active lasix Oral twice weekly with 3 days between shampoos 1 tab Active Estradiol 0.5 MG Orally Once a day 1 tablet 24h Active Aspirin 81 MG Orally Once a day 1 tablet 24h Active RESULTS No Results PROCEDURES Procedure Date Ordered Related Diagnosis Body Site LTD ORAL EVALUATION - PROBLEM FOCUS May 11, 2016 INTRAORL-PERIAPICAL 1 FILM 04844 May 11, 2016 BITEWING - SINGLE FILM May 11, 2016 IMMUNIZATIONS No Known Immunizations
--- OUTSIDE RECORDS SUMMARY | 2018-10-11 10:58 | XMS REPORT | Continuity of Care Document ---
Author Organization Unknown Address Unknown Allergies Active Description Code Type Severity Reaction Onset Reported/Identified Relationship to Patient Clinical Status Yes Penicillins [id number] Drug Allergy Unknown CAN TAKE CEPHLA 06/18/2009 Yes Niacin, pravastatin, Lipitor, Fish Oil Niacin, pravastatin, Lipitor, Fish Oil Unknown N/A 12/08/2014 Yes Sulfa (Sulfonamide Antibiotics) [id number] Drug Allergy Unknown N/A 12/08/2014 Yes Thzlacx-Lxb-Bhv Reductase Inhibitor [id number] Drug Allergy Severe MUSCLE WEAKNESS 10/05/2018 Yes Penicillins [id number] Drug Allergy Moderate RASH/SWELLING 10/05/2018 Yes Sulfa (Sulfonamide Antibiotics) [id number] Drug Allergy Mild RASH 10/05/2018 Medications There is no data. 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 02/23/2010 Ot 786.50 CHEST PAIN NOS 02/23/2010 Ot 787.91 DIARRHEA 02/23/2010 Ot 789.00 ABDOMINAL PAIN, UNSPECIFIED SITE 02/23/2010 Ot V58.69 OTH MED,LT,CURRENT USE 09/11/2010 Ot 715.96 OSTEOARTHROS NOS-L/LEG 09/11/2010 Ot V57.1 PHYSICAL THERAPY NEC 09/19/2010 Ot 276.1 HYPOSMOLALITY 09/19/2010 Ot 428.0 CONGESTIVE HEART FAILURE NOS 09/19/2010 Ot 715.36 LOC OSTEOARTH NOS-L/LEG 09/19/2010 Ot V57.1 PHYSICAL THERAPY NEC 09/19/2010 Ot V57.21 ENCOUNTER FOR OCCUPATIONAL THERAPY 09/22/2010 Ot 273.8 DIS PLAS PROTEIN MET NEC 09/22/2010 Ot 275.41 HYPOCALCEMIA 09/22/2010 Ot 276.1 HYPOSMOLALITY 09/22/2010 Ot 285.9 ANEMIA NOS 09/22/2010 Ot 428.0 CONGESTIVE HEART FAILURE NOS 09/22/2010 Ot 727.51 POPLITEAL SYNOVIAL CYST 09/22/2010 Ot V43.64 HIP JOINT REPLACEMENT STATUS 09/22/2010 Ot V54.81 AFTERCARE FOLLOWING JOINT REPLACEMENT 09/22/2010 Ot V57.1 PHYSICAL THERAPY NEC 09/22/2010 Ot V57.21 ENCOUNTER FOR OCCUPATIONAL THERAPY 10/29/2010 Ot 272.4 HYPERLIPIDEMIA NEC/NOS 10/29/2010 Ot 401.9 HYPERTENSION NOS 10/29/2010 Ot 414.01 CORONARY ATHEROSCLEROSIS OF [place] CORON 10/29/2010 Ot 786.59 CHEST PAIN NEC 12/03/2010 Ot V43.65 KNEE JOINT REPLACEMENT STATUS 12/03/2010 Ot V54.81 AFTERCARE FOLLOWING JOINT REPLACEMENT 12/03/2010 Ot V57.1 PHYSICAL THERAPY NEC 01/12/2011 Ot V58.61 ANTICOAGULANTS,LT,CURRENT USE 01/12/2011 Ot V58.83 ENCOUNTER FOR THERAPEUTIC DRUG MONITORIN 03/22/2013 ANA LAURA FERRER DO Ot 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 03/22/2013 ANA LAURA FERRER DO Ot 786.09 RESPIRATORY ABNORM NEC 01/30/2014 REINIER ADEN DO Ot 535.50 UNSP GASTRITIS GASTRODUODENITIS W/O ME 01/30/2014 REINIER ADEN DO Ot 535.60 DUODENITIS, WITHOUT MENTION OF HEMORRHAG 01/30/2014 REINIER ADEN DO Ot 553.3 DIAPHRAGMATIC HERNIA 01/30/2014 REINIER ADEN DO Ot 562.10 DIVERTICULOSIS COLON (W/O MENT OF HEMORR 01/30/2014 REINIER ADEN DO Ot V16.0 FAMILY HX-GI MALIGNANCY 01/30/2014 REINIER ADEN DO Ot V76.51 SCREEN MAL NEOP-COLON 02/23/2014 FELIPE CASILLAS FACC, ALI FACP CCDS Ot 272.4 02/23/2014 FELIPE CASILLAS FACC, ALI FACP CCDS Ot 397.0 02/23/2014 FELIPE CASILLAS FACC, ALI FACP CCDS Ot 401.9 02/23/2014 FELIPE MD FACC, ALI FACP CCDS Ot 416.8 02/23/2014 FELIPE MD FACC, ALI FACP CCDS Ot 424.0 02/23/2014 FELIPE MD FACC, ALI FACP CCDS Ot 426.3 02/23/2014 FELIPE MD FACC, ALI FACP CCDS Ot 786.05 02/23/2014 FELIPE MD FACC, ALI FACP CCDS Ot V58.69 02/27/2014 SHYLA WALLACE DO Ot 789.01 02/27/2014 FELIPE CASILLAS FACC, ALI FACP CCDS Ot 272.4 02/27/2014 FELIPE CASILLAS FACC, ALI FACP CCDS Ot 397.0 02/27/2014 FELIPE CASILLAS FACC, ALI FACP CCDS Ot 401.9 02/27/2014 FELIPE CASILLAS FACC, ALI FACP CCDS Ot 416.8 02/27/2014 FELIPE CASILLAS FACC, ALI FACP CCDS Ot 424.0 02/27/2014 FELIPE CASILLAS FACC, ALI FACP CCDS Ot 426.3 02/27/2014 FELIPE CASILLAS FACC, ALI FACP CCDS Ot 786.05 02/27/2014 FELIPE CASILLAS FACC, ALI FACP CCDS Ot V58.69 02/27/2014 Ot 272.4 02/27/2014 Ot 414.01 02/27/2014 Ot V58.69 02/27/2014 Ot 414.01 02/27/2014 Ot 786.09 02/27/2014 Ot 397.0 02/27/2014 Ot 414.00 02/27/2014 Ot 424.0 02/27/2014 Ot 786.09 02/27/2014 Ot 401.9 02/27/2014 Ot 428.0 02/27/2014 Ot 618.6 02/27/2014 Ot 791.9 02/27/2014 Ot V58.69 02/27/2014 Ot V72.63 02/27/2014 Ot V72.81 02/27/2014 Ot V74.8 02/27/2014 Ot V76.12 02/27/2014 Ot 272.4 02/27/2014 Ot 414.00 02/27/2014 Ot V58.69 02/27/2014 Ot 272.4 02/27/2014 Ot 414.00 02/27/2014 Ot V58.69 02/27/2014 Ot V58.83 02/27/2014 Ot 272.4 02/27/2014 Ot 401.9 02/27/2014 Ot 414.01 02/27/2014 Ot V58.69 02/27/2014 Ot V76.12 02/27/2014 Ot 727.51 02/27/2014 Ot 729.5 02/27/2014 Ot 429.3 02/27/2014 Ot 715.36 02/27/2014 Ot 791.9 02/27/2014 Ot V57.1 02/27/2014 Ot V57.21 02/27/2014 Ot V58.69 02/27/2014 Ot V72.63 02/27/2014 Ot V72.81 02/27/2014 Ot V58.61 02/27/2014 Ot V58.83 02/27/2014 Ot V58.61 02/27/2014 Ot V58.83 02/27/2014 Ot 599.0 02/27/2014 Ot V58.61 02/27/2014 Ot V58.83 02/27/2014 Ot 272.4 02/27/2014 Ot V58.69 02/27/2014 Ot V76.12 02/27/2014 Ot 272.4 02/27/2014 Ot 401.9 02/27/2014 Ot 414.00 02/27/2014 Ot V58.69 02/27/2014 Ot 401.9 02/27/2014 Ot V58.69 02/27/2014 Ot 272.4 02/27/2014 Ot 401.9 02/27/2014 Ot 414.00 02/27/2014 Ot V58.69 02/27/2014 MAME GIRARD DO Ot V76.12 02/27/2014 Ot 719.45 02/27/2014 Ot 719.45 02/27/2014 HELENE TEJEDA DIRECTOR LAW ENFORCEMENT Ot 272.4 02/27/2014 BAIHELENE LUU L DIRECTOR LAW ENFORCEMENT Ot 272.4 02/27/2014 BAIHELENE LUU L DIRECTOR LAW ENFORCEMENT Ot 401.9 02/27/2014 HELENE TEJEDA L DIRECTOR LAW ENFORCEMENT Ot 414.00 02/27/2014 BAIMA, HELENE L DIRECTOR LAW ENFORCEMENT Ot 416.8 02/27/2014 BAIMA, HELENE L DIRECTOR LAW ENFORCEMENT Ot 426.3 02/27/2014 BAIMA, HELENE L DIRECTOR LAW ENFORCEMENT Ot 272.4 02/27/2014 BAIMA, HELENE L DIRECTOR LAW ENFORCEMENT Ot 401.9 02/27/2014 BAIMA, HELENE L DIRECTOR LAW ENFORCEMENT Ot 414.00 02/27/2014 BAIMA, HELENE L DIRECTOR LAW ENFORCEMENT Ot 416.8 02/27/2014 BAIMA, HELENE L DIRECTOR LAW ENFORCEMENT Ot 426.3 02/27/2014 CARISSA DO, ANA LAURA M Ot 272.4 02/27/2014 CARISSA DO, ANA LAURA M Ot 278.00 02/27/2014 CARISSA DO, ANA LAURA M Ot 401.9 02/27/2014 CARISSA DO, ANA LAURA M Ot 414.00 02/27/2014 CARISSA DO, ANA LAURA M Ot 416.8 02/27/2014 CARISSA DO, ANA LAURA M Ot 426.3 02/27/2014 CARISSA DO, ANA LAURA M Ot 428.0 02/27/2014 CARISSA DO, ANA LAURA M Ot 493.90 02/27/2014 CARISSA DO, ANA LAURA M Ot 780.54 02/27/2014 CARISSA DO, ANA LAURA M Ot 786.05 02/27/2014 GELRADHAMESDER DO SHYLA A Ot 786.05 02/27/2014 GELLENDER DOSHYLA Ot 786.50 02/27/2014 BAIHELENE LUU L DIRECTOR LAW ENFORCEMENT Ot 272.4 02/27/2014 BAIHELENE LUU L DIRECTOR LAW ENFORCEMENT Ot 414.00 02/27/2014 BAIMAHELENE L DIRECTOR LAW ENFORCEMENT Ot V58.69 02/27/2014 MAME GIRARD DO Ot V76.12 02/27/2014 GELLENDER DOSHYLA Ot 789.01 02/27/2014 GELLENDER DOSHYLA Ot 789.01 02/27/2014 GELLENDER DOSHYLA Ot 553.3 02/27/2014 GELLENDER DOSHYLA Ot 571.8 02/27/2014 GELLENDER DOSHYLA Ot 789.1 02/27/2014 REINIER ADEN DO Ot V72.84 02/27/2014 FELIPE CASILLAS FACC, ALI FACP CCDS Ot 272.4 02/27/2014 FELIPE CASILLAS FACC, ALI FACP CCDS Ot 401.9 02/27/2014 FELIPE CASILLAS FACC, ALI FACP CCDS Ot 416.8 02/27/2014 FELIPE CASILLAS FACC, ALI FACP CCDS Ot 426.3 02/27/2014 FELIPE CASILLAS FACC, ALI FACP CCDS Ot 786.05 02/27/2014 FELIPE CASILLAS FACC, ALI FACP CCDS Ot 786.59 02/27/2014 FELIPE CASILLAS FACC, ALI FACP CCDS Ot V58.69 02/27/2014 FELIPE CASILLAS FACC, ALI FACP CCDS Ot 272.4 02/27/2014 FELIPE CASILLAS FACC, ALI FACP CCDS Ot 397.0 02/27/2014 FELIPE CASILLAS FACC, ALI FACP CCDS Ot 401.9 02/27/2014 FELIPE CASILLAS FACC, ALI FACP CCDS Ot 416.8 02/27/2014 FELIPE CASILLAS FACC, ALI FACP CCDS Ot 424.0 02/27/2014 FELIPE CASILLAS FACC, ALI FACP CCDS Ot 426.3 02/27/2014 FELIPE CASILLAS FACC, ALI FACP CCDS Ot 786.05 02/27/2014 FELIPE CASILLAS FACC, ALI FACP CCDS Ot V58.69 03/19/2014 FELIPE CASILLAS FACC, ALI FACP CCDS Ot 272.4 03/19/2014 FELIPE CASILLAS FACC, ALI FACP CCDS Ot 397.0 03/19/2014 FELIPE CASILLAS FACC, ALI FACP CCDS Ot 401.9 03/19/2014 FELIPE CASILLAS FACC, ALI FACP CCDS Ot 416.8 03/19/2014 FELIPE CASILLAS FACC, ALI FACP CCDS Ot 424.0 03/19/2014 FELIPE CASILLAS FACC, ALI FACP CCDS Ot 426.3 03/19/2014 FELIPE CASILLAS FACC, ALI FACP CCDS Ot 786.05 03/19/2014 FELIPE CASILLAS FACC, ALI FACP CCDS Ot V58.69 03/19/2014 FELIPE CASILLAS FACC, ALI FACP CCDS Ot 272.4 03/19/2014 FELIPE CASILLAS FACC, ALI FACP CCDS Ot 401.9 03/19/2014 FELIPE CASILLAS FAC, ALI FACP CCDS Ot 416.8 03/19/2014 FELIPE CASILLAS FACC, ALI FACP CCDS Ot 426.3 03/19/2014 FELIPE CASILLAS FACC, ALI FACP CCDS Ot 786.05 03/19/2014 FELIPE CASILLAS FAC, ALI FACP CCDS Ot 786.59 03/19/2014 FELIPE CASILLAS FAC, ALI FACP CCDS Ot V58.69 03/19/2014 SHYLA WALLACE DO Ot 553.3 03/19/2014 SHYLA WALLACE DO Ot 571.8 03/19/2014 SHYLA WALLACE DO Ot 789.1 03/19/2014 SHYLA WALLACE DO Ot 789.01 03/19/2014 SHYLA WALLACE DO Ot 789.01 03/21/2014 Ot 272.4 03/21/2014 Ot 414.01 03/21/2014 Ot V58.69 03/21/2014 Ot 414.01 03/21/2014 Ot 786.09 03/21/2014 Ot 397.0 03/21/2014 Ot 414.00 03/21/2014 Ot 424.0 03/21/2014 Ot 786.09 03/21/2014 Ot 401.9 03/21/2014 Ot 428.0 03/21/2014 Ot 618.6 03/21/2014 Ot 791.9 03/21/2014 Ot V58.69 03/21/2014 Ot V72.63 03/21/2014 Ot V72.81 03/21/2014 Ot V74.8 03/21/2014 Ot V76.12 03/21/2014 Ot 272.4 03/21/2014 Ot 414.00 03/21/2014 Ot V58.69 03/21/2014 Ot 272.4 03/21/2014 Ot 414.00 03/21/2014 Ot V58.69 03/21/2014 Ot V58.83 03/21/2014 Ot 272.4 03/21/2014 Ot 401.9 03/21/2014 Ot 414.01 03/21/2014 Ot V58.69 03/21/2014 Ot V76.12 03/21/2014 Ot 727.51 03/21/2014 Ot 729.5 03/21/2014 Ot 429.3 03/21/2014 Ot 715.36 03/21/2014 Ot 791.9 03/21/2014 Ot V57.1 03/21/2014 Ot V57.21 03/21/2014 Ot V58.69 03/21/2014 Ot V72.63 03/21/2014 Ot V72.81 03/21/2014 Ot V58.61 03/21/2014 Ot V58.83 03/21/2014 Ot V58.61 03/21/2014 Ot V58.83 03/21/2014 Ot 599.0 03/21/2014 Ot V58.61 03/21/2014 Ot V58.83 03/21/2014 Ot 272.4 03/21/2014 Ot V58.69 03/21/2014 Ot V76.12 03/21/2014 Ot 272.4 03/21/2014 Ot 401.9 03/21/2014 Ot 414.00 03/21/2014 Ot V58.69 03/21/2014 Ot 401.9 03/21/2014 Ot V58.69 03/21/2014 Ot 272.4 03/21/2014 Ot 401.9 03/21/2014 Ot 414.00 03/21/2014 Ot V58.69 03/21/2014 MAME IGRARD DO Ot V76.12 03/21/2014 Ot 719.45 03/21/2014 Ot 719.45 03/21/2014 BAIMA, HELENE L DIRECTOR LAW ENFORCEMENT Ot 272.4 03/21/2014 BAIMA, HELENE L DIRECTOR LAW ENFORCEMENT Ot 272.4 03/21/2014 BAIMA, HELENE L DIRECTOR LAW ENFORCEMENT Ot 401.9 03/21/2014 BAIMA, HELENE L DIRECTOR LAW ENFORCEMENT Ot 414.00 03/21/2014 BAIMA, HELENE L DIRECTOR LAW ENFORCEMENT Ot 416.8 03/21/2014 BAIMA, HELENE L DIRECTOR LAW ENFORCEMENT Ot 426.3 03/21/2014 BAIMA, HELENE L DIRECTOR LAW ENFORCEMENT Ot 272.4 03/21/2014 BAIMA, HELENE L DIRECTOR LAW ENFORCEMENT Ot 401.9 03/21/2014 BAIMA, HELENE L DIRECTOR LAW ENFORCEMENT Ot 414.00 03/21/2014 BAIMA, HELENE L DIRECTOR LAW ENFORCEMENT Ot 416.8 03/21/2014 BAIMA, HELENE L DIRECTOR LAW ENFORCEMENT Ot 426.3 03/21/2014 ANA LAURA FERRER DO Ot 272.4 03/21/2014 CARISSA DOANA LAURA M Ot 278.00 03/21/2014 CARISSA DO, ANA LAURA M Ot 401.9 03/21/2014 CARISSA DO, ANA LAURA M Ot 414.00 03/21/2014 CARISSA DO, ANA LAURA M Ot 416.8 03/21/2014 CARISSA DO, ANA LAURA M Ot 426.3 03/21/2014 CARISSA DO, ANA LAURA M Ot 428.0 03/21/2014 CARISSA DO, ANA LAURA M Ot 493.90 03/21/2014 CARISSA DOANA LAURA M Ot 780.54 03/21/2014 CARISSA DOANA LAURA Ot 786.05 03/21/2014 GELFELICIANO DOSHYLA Ot 786.05 03/21/2014 SHYLA WALLACE DO A Ot 786.50 03/21/2014 BEVERLYHELENE LUU DIRECTOR LAW ENFORCEMENT Ot 272.4 03/21/2014 BEVERLYHELENE LUU DIRECTOR LAW ENFORCEMENT Ot 414.00 03/21/2014 BEVERLYBELL HELENE L DIRECTOR LAW ENFORCEMENT Ot V58.69 03/21/2014 GIRARD JAGDISH PEDRAZAJaleesa Mendoza Ot V76.12 03/21/2014 [facility] DO, SHYLA A Ot 789.01 03/21/2014 [facility] DO, SHYLA A Ot 789.01 03/21/2014 [facility] DO, SHYLA A Ot 553.3 03/21/2014 [facility] DO, SHYLA A Ot 571.8 03/21/2014 [facility] DO, SHYLA A Ot 789.1 03/21/2014 ADEN REINIER Ot V72.84 03/21/2014 FELIPE CASILLAS FACC, ALI FACP CCDS Ot 272.4 03/21/2014 FELIPE CASILLAS FACC, ALI FACP CCDS Ot 401.9 03/21/2014 FELIPE CASILLAS FACC, ALI FACP CCDS Ot 416.8 03/21/2014 FELIPE CASILLAS FACC, ALI FACP CCDS Ot 426.3 03/21/2014 FELIPE CASILLAS FACC, ALI FACP CCDS Ot 786.05 03/21/2014 FELIPE CASILLAS FACC, ALI FACP CCDS Ot 786.59 03/21/2014 FELIPE CASILLAS FACC, ALI FACP CCDS Ot V58.69 03/21/2014 FELIPE CASILLAS FACC, ALI FACP CCDS Ot 272.4 03/21/2014 FELIPE CASILLAS FACC, ALI FACP CCDS Ot 397.0 03/21/2014 FELIPE CASILLAS FACC, ALI FACP CCDS Ot 401.9 03/21/2014 FELIPE CASILLAS FACC, ALI FACP CCDS Ot 416.8 03/21/2014 FELIPE CASILLAS FACC, ALI FACP CCDS Ot 424.0 03/21/2014 FELIPE CASILLAS FACC, ALI FACP CCDS Ot 426.3 03/21/2014 FELIPE CASILLAS FACC, ALI FACP CCDS Ot 786.05 03/21/2014 FELIPE CASILLAS FACC, ALI FACP CCDS Ot V58.69 04/27/2014 GELLENDER DO, SHYLA A Ot 789.01 04/27/2014 GELLENDER DO, SHYLA A Ot 789.01 04/27/2014 [facility] A Ot 553.3 04/27/2014 [facility] A Ot 571.8 04/27/2014 [facility], SH[facility]LA A Ot 789.1 04/27/2014 FELIPE CASILLAS FACC, ALI FACP CCDS Ot 272.4 04/27/2014 FELIPE CASILLAS FACC, ALI FACP CCDS Ot 397.0 04/27/2014 FELIPE CASILLAS FACC, ALI FACP CCDS Ot 401.9 04/27/2014 FELIPE CASILLAS FACC, ALI FACP CCDS Ot 416.8 04/27/2014 FELIPE CASILLAS FACC, ALI FACP CCDS Ot 424.0 04/27/2014 FELIPE CASILLAS FACC, ALI FACP CCDS Ot 426.3 04/27/2014 FELIPE CASILLAS FACC, ALI FACP CCDS Ot 786.05 04/27/2014 FELIPE CASILLAS FACC, ALI FACP CCDS Ot V58.69 04/30/2014 FELIPE CASILLAS FACC, ALI FACP CCDS Ot 272.4 04/30/2014 FELIPE CASILLAS FACC, ALI FACP CCDS Ot 401.9 04/30/2014 FELIPE CASILLAS FACC, ALI FACP CCDS Ot 416.8 04/30/2014 FELIPE CASILLAS FACC, ALI FACP CCDS Ot 426.3 04/30/2014 FELIPE CASILLAS FACC, ALI FACP CCDS Ot 786.05 04/30/2014 FELIPE CASILLAS FACC, TRISHA VASQUEZ CCDS Ot 786.59 04/30/2014 FELIPE CASILLAS FACC, TRISHA VASQUEZ CCDS Ot V58.69 08/13/2014 Ot 272.4 08/13/2014 Ot 414.01 08/13/2014 Ot V58.69 08/13/2014 Ot 414.01 08/13/2014 Ot 786.09 08/13/2014 Ot 397.0 08/13/2014 Ot 414.00 08/13/2014 Ot 424.0 08/13/2014 Ot 786.09 08/13/2014 Ot 401.9 08/13/2014 Ot 428.0 08/13/2014 Ot 618.6 08/13/2014 Ot 791.9 08/13/2014 Ot V58.69 08/13/2014 Ot V72.63 08/13/2014 Ot V72.81 08/13/2014 Ot V74.8 08/13/2014 Ot V76.12 08/13/2014 Ot 272.4 08/13/2014 Ot 414.00 08/13/2014 Ot V58.69 08/13/2014 Ot 272.4 08/13/2014 Ot 414.00 08/13/2014 Ot V58.69 08/13/2014 Ot V58.83 08/13/2014 Ot 272.4 08/13/2014 Ot 401.9 08/13/2014 Ot 414.01 08/13/2014 Ot V58.69 08/13/2014 Ot V76.12 08/13/2014 Ot 727.51 08/13/2014 Ot 729.5 08/13/2014 Ot 429.3 08/13/2014 Ot 715.36 08/13/2014 Ot 791.9 08/13/2014 Ot V57.1 08/13/2014 Ot V57.21 08/13/2014 Ot V58.69 08/13/2014 Ot V72.63 08/13/2014 Ot V72.81 08/13/2014 Ot V58.61 08/13/2014 Ot V58.83 08/13/2014 Ot V58.61 08/13/2014 Ot V58.83 08/13/2014 Ot 599.0 08/13/2014 Ot V58.61 08/13/2014 Ot V58.83 08/13/2014 Ot 272.4 08/13/2014 Ot V58.69 08/13/2014 Ot V76.12 08/13/2014 Ot 272.4 08/13/2014 Ot 401.9 08/13/2014 Ot 414.00 08/13/2014 Ot V58.69 08/13/2014 Ot 401.9 08/13/2014 Ot V58.69 08/13/2014 Ot 272.4 08/13/2014 Ot 401.9 08/13/2014 Ot 414.00 08/13/2014 Ot V58.69 08/13/2014 MAME GIRARD DO Ot V76.12 08/13/2014 Ot 719.45 08/13/2014 Ot 719.45 08/13/2014 BAIMA, HELENE L DIRECTOR LAW ENFORCEMENT Ot 272.4 08/13/2014 BAIMA, HELENE L DIRECTOR LAW ENFORCEMENT Ot 272.4 08/13/2014 BAIMA, HELENE L DIRECTOR LAW ENFORCEMENT Ot 401.9 08/13/2014 BAIMA, HELENE L DIRECTOR LAW ENFORCEMENT Ot 414.00 08/13/2014 BAIMA, HELENE L DIRECTOR LAW ENFORCEMENT Ot 416.8 08/13/2014 BAIMA, HELENE L DIRECTOR LAW ENFORCEMENT Ot 426.3 08/13/2014 BAIMA, HELENE L DIRECTOR LAW ENFORCEMENT Ot 272.4 08/13/2014 BAIMA, HELENE L DIRECTOR LAW ENFORCEMENT Ot 401.9 08/13/2014 BAIMA, HELENE L DIRECTOR LAW ENFORCEMENT Ot 414.00 08/13/2014 BAIMA, HELENE L DIRECTOR LAW ENFORCEMENT Ot 416.8 08/13/2014 BAIMA, HELENE L DIRECTOR LAW ENFORCEMENT Ot 426.3 08/13/2014 ANA LAURA FERRER DO M Ot 272.4 08/13/2014 CARISSA PEDRAZA, ANA LAURA M Ot 278.00 08/13/2014 CARISSA PEDRAZA, ANA LAURA M Ot 401.9 08/13/2014 CARISSA PEDRAZA, ANA LAURA M Ot 414.00 08/13/2014 CARISSA PEDRAZA, ANA LAURA M Ot 416.8 08/13/2014 ANA LAURA FERRER DO M Ot 426.3 08/13/2014 ANA LAURA FERRER DO M Ot 428.0 08/13/2014 ANA LAURA FERRER DO M Ot 493.90 08/13/2014 ANA LAURA FERRER DO M Ot 780.54 08/13/2014 ANA LAURA FERRER DO Ot 786.05 08/13/2014 GELLENDER DO, SHYLA A Ot 786.05 08/13/2014 GELLENDER DO, SHYLA A Ot 786.50 08/13/2014 HELENE TEJEDA DIRECTOR LAW ENFORCEMENT Ot 272.4 08/13/2014 BAIHELENE LUU DIRECTOR LAW ENFORCEMENT Ot 414.00 08/13/2014 BAIHELENE LUU DIRECTOR LAW ENFORCEMENT Ot V58.69 08/13/2014 GIRARD MAME PEDRAZA Ot V76.12 08/13/2014 GELLENDER DO, SHYLA A Ot 789.01 08/13/2014 GELLENDER DO, SHYLA A Ot 789.01 08/13/2014 GELLENDER DO, SHYLA A Ot 553.3 08/13/2014 [facility] A Ot 571.8 08/13/2014 GELLENDER DO, SHYLA A Ot 789.1 08/13/2014 [place] DOREINIER Ot V72.84 08/13/2014 FELIPE CASILLAS FACC, ALI FACP CCDS Ot 272.4 08/13/2014 FELIPE CASILLAS FACC, ALI FACP CCDS Ot 401.9 08/13/2014 FELIPE CASILLAS FACC, ALI FACP CCDS Ot 416.8 08/13/2014 FELIPE CASILLAS FACC, ALI FACP CCDS Ot 426.3 08/13/2014 FELIPE CASILLAS FACC, ALI FACP CCDS Ot 786.05 08/13/2014 FELIPE CASILLAS FACC, ALI FACP CCDS Ot 786.59 08/13/2014 FELIPE CASILLAS FACC, ALI FACP CCDS Ot V58.69 08/13/2014 FELIPE CASILLAS FACC, ALI FACP CCDS Ot 272.4 08/13/2014 FELIPE CASILLAS FACC, ALI FACP CCDS Ot 397.0 08/13/2014 FELIPE CASILLAS FACC, ALI FACP CCDS Ot 401.9 08/13/2014 FELIPE CASILLAS FACC, ALI FACP CCDS Ot 416.8 08/13/2014 FELIPE CASILLAS FACC, ALI FACP CCDS Ot 424.0 08/13/2014 FELIPE CASILLAS FACC, ALI FACP CCDS Ot 426.3 08/13/2014 FELIPE CASILLAS FACC, ALI FACP CCDS Ot 786.05 08/13/2014 FELIPE CASILLAS FACC, ALI FACP CCDS Ot V58.69 09/07/2014 Ot 414.01 09/07/2014 Ot 786.09 09/07/2014 Ot 397.0 09/07/2014 Ot 414.00 09/07/2014 Ot 424.0 09/07/2014 Ot 786.09 09/07/2014 Ot 401.9 09/07/2014 Ot 428.0 09/07/2014 Ot 618.6 09/07/2014 Ot 791.9 09/07/2014 Ot V58.69 09/07/2014 Ot V72.63 09/07/2014 Ot V72.81 09/07/2014 Ot V74.8 09/07/2014 Ot V76.12 09/07/2014 Ot 272.4 09/07/2014 Ot 414.00 09/07/2014 Ot V58.69 09/07/2014 Ot 272.4 09/07/2014 Ot 414.00 09/07/2014 Ot V58.69 09/07/2014 Ot V58.83 09/07/2014 Ot 272.4 09/07/2014 Ot 401.9 09/07/2014 Ot 414.01 09/07/2014 Ot V58.69 09/07/2014 Ot V76.12 09/07/2014 Ot 727.51 09/07/2014 Ot 729.5 09/07/2014 Ot 429.3 09/07/2014 Ot 715.36 09/07/2014 Ot 791.9 09/07/2014 Ot V57.1 09/07/2014 Ot V57.21 09/07/2014 Ot V58.69 09/07/2014 Ot V72.63 09/07/2014 Ot V72.81 09/07/2014 Ot V58.61 09/07/2014 Ot V58.83 09/07/2014 Ot V58.61 09/07/2014 Ot V58.83 09/07/2014 Ot 599.0 09/07/2014 Ot V58.61 09/07/2014 Ot V58.83 09/07/2014 Ot 272.4 09/07/2014 Ot V58.69 09/07/2014 Ot V76.12 09/07/2014 Ot 272.4 09/07/2014 Ot 401.9 09/07/2014 Ot 414.00 09/07/2014 Ot V58.69 09/07/2014 Ot 401.9 09/07/2014 Ot V58.69 09/07/2014 Ot 272.4 09/07/2014 Ot 401.9 09/07/2014 Ot 414.00 09/07/2014 Ot V58.69 09/07/2014 MAME GIRARD DO Ot V76.12 09/07/2014 Ot 719.45 09/07/2014 Ot 719.45 09/07/2014 BAIMA, HELENE L DIRECTOR LAW [employer]NF[employer]CEMENT Ot 272.4 09/07/2014 BAIMA, HELENE L DIRECTOR LAW ENFORCEMENT Ot 272.4 09/07/2014 BAIMA, HELENE L DIRECTOR LAW ENFORCEMENT Ot 401.9 09/07/2014 BAIMA, HELENE L DIRECTOR LAW ENFORCEMENT Ot 414.00 09/07/2014 BAIMA, HELENE L DIRECTOR LAW ENFORCEMENT Ot 416.8 09/07/2014 BAIMA, HELENE L DIRECTOR LAW ENFORCEMENT Ot 426.3 09/07/2014 BAIMA, HELENE L DIRECTOR LAW ENFORCEMENT Ot 272.4 09/07/2014 BAIMA, HELENE L DIRECTOR LAW ENFORCEMENT Ot 401.9 09/07/2014 BAIMA, HELENE L DIRECTOR LAW ENFORCEMENT Ot 414.00 09/07/2014 BAIMA, HELENE L DIRECTOR LAW ENFORCEMENT Ot 416.8 09/07/2014 BAIMA, HELENE L DIRECTOR LAW ENFORCEMENT Ot 426.3 09/07/2014 CARISSA DO, ANA LAURA M Ot 272.4 09/07/2014 CARISSA DO, ANA LAURA M Ot 278.00 09/07/2014 CARISSA DO, ANA LAURA M Ot 401.9 09/07/2014 CARISSA DO, ANA LAURA M Ot 414.00 09/07/2014 CARISSA DO, ANA LAURA M Ot 416.8 09/07/2014 CARISSA DO, ANA LAURA M Ot 426.3 09/07/2014 CARISSA DO, ANA LAURA M Ot 428.0 09/07/2014 CARISSA DO, ANA LAURA M Ot 493.90 09/07/2014 CARISSA DO, ANA LAURA M Ot 780.54 09/07/2014 CARISSA DO, ANA LAURA M Ot 786.05 09/07/2014 SHYLA WALLACE DO Ot 786.05 09/07/2014 SHYLA WALLACE DO Ot 786.50 09/07/2014 BAIMA, HELENE L DIRECTOR LAW ENFORCEMENT Ot 272.4 09/07/2014 BAIMA, HELENE L DIRECTOR LAW ENFORCEMENT Ot 414.00 09/07/2014 BEVERLYHELENE LUU DIRECTOR LAW ENFORCEMENT Ot V58.69 09/07/2014 MAME GIRARD DO Ot V76.12 09/07/2014 [facility] DO, SHYLA Lazcano Ot 789.01 09/07/2014 [facility] DO, SHYLA Lazcano Ot 789.01 09/07/2014 [facility] DO, SHYLA Lazcano Ot 553.3 09/07/2014 [facility], SHYLA Lazcano Ot 571.8 09/07/2014 [facility] DO, SHYLA Lazcano Ot 789.1 09/07/2014 [place] [facility] PEDRAZA Ot V72.84 09/07/2014 FELIPE CASILLAS FACC, ALI FACP CCDS Ot 272.4 09/07/2014 FELIPE CASILLAS FACC, ALI FACP CCDS Ot 401.9 09/07/2014 FELIPE CASILLAS FACC, ALI FACP CCDS Ot 416.8 09/07/2014 FELIPE CASILLAS FACC, ALI FACP CCDS Ot 426.3 09/07/2014 FELIPE CASILLAS FACC, ALI FACP CCDS Ot 786.05 09/07/2014 FELIPE CASILLAS FACC, ALI FACP CCDS Ot 786.59 09/07/2014 FELIPE CASILLAS FACC, ALI FACP CCDS Ot V58.69 09/07/2014 FELIPE CASILLAS FACC, ALI FACP CCDS Ot 272.4 09/07/2014 FELIPE CASILLAS FACC, ALI FACP CCDS Ot 397.0 09/07/2014 FELIPE CASILLAS FACC, ALI FACP CCDS Ot 401.9 09/07/2014 FELIPE CASILLAS FACC, ALI FACP CCDS Ot 416.8 09/07/2014 FELIPE CASILLAS FACC, ALI FACP CCDS Ot 424.0 09/07/2014 FELIPE CASILLAS FACC, ALI FACP CCDS Ot 426.3 09/07/2014 FELIPE CASILLAS FACC, ALI FACP CCDS Ot 786.05 09/07/2014 FELIPE CASILLAS FACC, ALI FACP CCDS Ot V58.69 10/03/2014 MOISES SAUL DIRECTOR LAW ENFORCEMENT Ot V76.12 10/25/2014 Ot 414.01 10/25/2014 Ot 786.09 10/25/2014 Ot 397.0 10/25/2014 Ot 414.00 10/25/2014 Ot 424.0 10/25/2014 Ot 786.09 10/25/2014 Ot 401.9 10/25/2014 Ot 428.0 10/25/2014 Ot 618.6 10/25/2014 Ot 791.9 10/25/2014 Ot V58.69 10/25/2014 Ot V72.63 10/25/2014 Ot V72.81 10/25/2014 Ot V74.8 10/25/2014 Ot V76.12 10/25/2014 Ot 272.4 10/25/2014 Ot 414.00 10/25/2014 Ot V58.69 10/25/2014 Ot 272.4 10/25/2014 Ot 414.00 10/25/2014 Ot V58.69 10/25/2014 Ot V58.83 10/25/2014 Ot 272.4 10/25/2014 Ot 401.9 10/25/2014 Ot 414.01 10/25/2014 Ot V58.69 10/25/2014 Ot V76.12 10/25/2014 Ot 727.51 10/25/2014 Ot 729.5 10/25/2014 Ot 429.3 10/25/2014 Ot 715.36 10/25/2014 Ot 791.9 10/25/2014 Ot V57.1 10/25/2014 Ot V57.21 10/25/2014 Ot V58.69 10/25/2014 Ot V72.63 10/25/2014 Ot V72.81 10/25/2014 Ot V58.61 10/25/2014 Ot V58.83 10/25/2014 Ot V58.61 10/25/2014 Ot V58.83 10/25/2014 Ot 599.0 10/25/2014 Ot V58.61 10/25/2014 Ot V58.83 10/25/2014 Ot 272.4 10/25/2014 Ot V58.69 10/25/2014 Ot V76.12 10/25/2014 Ot 272.4 10/25/2014 Ot 401.9 10/25/2014 Ot 414.00 10/25/2014 Ot V58.69 10/25/2014 Ot 401.9 10/25/2014 Ot V58.69 10/25/2014 Ot 272.4 10/25/2014 Ot 401.9 10/25/2014 Ot 414.00 10/25/2014 Ot V58.69 10/25/2014 MAME GIRARD DO Ot V76.12 10/25/2014 Ot 719.45 10/25/2014 Ot 719.45 10/25/2014 BAIMA, HELENE L DIRECTOR LAW ENFORCEMENT Ot 272.4 10/25/2014 BAIMA, HELENE L DIRECTOR LAW ENFORCEMENT Ot 272.4 10/25/2014 BAIMA, HELENE L DIRECTOR LAW ENFORCEMENT Ot 401.9 10/25/2014 BAIMA, HELENE L DIRECTOR LAW ENFORCEMENT Ot 414.00 10/25/2014 BAIMA, HELENE L DIRECTOR LAW ENFORCEMENT Ot 416.8 10/25/2014 BAIMA, HELENE L DIRECTOR LAW ENFORCEMENT Ot 426.3 10/25/2014 BAIMA, HELENE L DIRECTOR LAW ENFORCEMENT Ot 272.4 10/25/2014 BAIMA, HELENE L DIRECTOR LAW ENFORCEMENT Ot 401.9 10/25/2014 BAIMA, HELENE L DIRECTOR LAW ENFORCEMENT Ot 414.00 10/25/2014 BAIMA, HELENE L DIRECTOR LAW ENFORCEMENT Ot 416.8 10/25/2014 BAIMA, HELENE L DIRECTOR LAW ENFORCEMENT Ot 426.3 10/25/2014 CARISSA DO, ANA LAURA M Ot 272.4 10/25/2014 CARISSA DO, ANA LAURA M Ot 278.00 10/25/2014 CARISSA DO, ANA LAURA M Ot 401.9 10/25/2014 CARISSA DO, ANA LAURA M Ot 414.00 10/25/2014 CARISSA DO, ANA LAURA M Ot 416.8 10/25/2014 CARISSA DO, ANA LAURA M Ot 426.3 10/25/2014 CARISSA DO, ANA LAURA M Ot 428.0 10/25/2014 CARISSA DO, ANA LAURA M Ot 493.90 10/25/2014 CARISSA DO, ANA LAURA M Ot 780.54 10/25/2014 CARISSA DO, ANA LAURA M Ot 786.05 10/25/2014 GELLENDER DO, SHYLA A Ot 786.05 10/25/2014 GELLENDER DO, SHYLA A Ot 786.50 10/25/2014 BAIMA, HELENE L DIRECTOR LAW ENFORCEMENT Ot 272.4 10/25/2014 BAIMA, HELENE L DIRECTOR LAW ENFORCEMENT Ot 414.00 10/25/2014 BAIMA, HELENE L DIRECTOR LAW ENFORCEMENT Ot V58.69 10/25/2014 MAME GIRARD DO Ot V76.12 10/25/2014 GELLENDER DO, SHYLA Lazcano Ot 789.01 10/25/2014 GELLENDER DO, SHYLA Lazcano Ot 789.01 10/25/2014 GELLENDER DO, SHYLA Lazcano Ot 553.3 10/25/2014 GELLENDER DO, SHYLA Lazcano Ot 571.8 10/25/2014 GELLENDER DO, SHYLA Lazcano Ot 789.1 10/25/2014 ADENREINIER DE OLIVEIRA DO Ot V72.84 10/25/2014 FELIPE CASILLAS FACC, ALI FACP CCDS Ot 272.4 10/25/2014 FELIPE CASILLAS FACC, ALI FACP CCDS Ot 401.9 10/25/2014 FELIPE CASILLAS FACC, ALI FACP CCDS Ot 416.8 10/25/2014 FELIPE CASILLAS FACC, ALI FACP CCDS Ot 426.3 10/25/2014 FELIPE CASILLAS FACC, ALI FACP CCDS Ot 786.05 10/25/2014 FELIPE CASILLAS FACC, ALI FACP CCDS Ot 786.59 10/25/2014 FELIPE CASILLAS FACC, ALI FACP CCDS Ot V58.69 10/25/2014 FELIPE CASILLAS FACC, ALI FACP CCDS Ot 272.4 10/25/2014 FELIPE CASILLAS FACC, ALI FACP CCDS Ot 397.0 10/25/2014 FELIPE CASILLAS FACC, ALI FACP CCDS Ot 401.9 10/25/2014 FELIPE CASILLAS FACC, ALI FACP CCDS Ot 416.8 10/25/2014 FELIPE CASILLAS FACC, ALI FACP CCDS Ot 424.0 10/25/2014 FELIPE CASILLAS FACC, ALI FACP CCDS Ot 426.3 10/25/2014 FELIPE CASILLAS FACC, ALI FACP CCDS Ot 786.05 10/25/2014 FELIPE CASILLAS FACC, ALI FACP CCDS Ot V58.69 10/25/2014 MOISES SAUL Ot V76.12 10/31/2014 Ot 414.01 10/31/2014 Ot 786.09 10/31/2014 Ot 397.0 10/31/2014 Ot 414.00 10/31/2014 Ot 424.0 10/31/2014 Ot 786.09 10/31/2014 Ot 401.9 10/31/2014 Ot 428.0 10/31/2014 Ot 618.6 10/31/2014 Ot 791.9 10/31/2014 Ot V58.69 10/31/2014 Ot V72.63 10/31/2014 Ot V72.81 10/31/2014 Ot V74.8 10/31/2014 Ot V76.12 10/31/2014 Ot 272.4 10/31/2014 Ot 414.00 10/31/2014 Ot V58.69 10/31/2014 Ot 272.4 10/31/2014 Ot 414.00 10/31/2014 Ot V58.69 10/31/2014 Ot V58.83 10/31/2014 Ot 272.4 10/31/2014 Ot 401.9 10/31/2014 Ot 414.01 10/31/2014 Ot V58.69 10/31/2014 Ot V76.12 10/31/2014 Ot 727.51 10/31/2014 Ot 729.5 10/31/2014 Ot 429.3 10/31/2014 Ot 715.36 10/31/2014 Ot 791.9 10/31/2014 Ot V57.1 10/31/2014 Ot V57.21 10/31/2014 Ot V58.69 10/31/2014 Ot V72.63 10/31/2014 Ot V72.81 10/31/2014 Ot V58.61 10/31/2014 Ot V58.83 10/31/2014 Ot V58.61 10/31/2014 Ot V58.83 10/31/2014 Ot 599.0 10/31/2014 Ot V58.61 10/31/2014 Ot V58.83 10/31/2014 Ot 272.4 10/31/2014 Ot V58.69 10/31/2014 Ot V76.12 10/31/2014 Ot 272.4 10/31/2014 Ot 401.9 10/31/2014 Ot 414.00 10/31/2014 Ot V58.69 10/31/2014 Ot 401.9 10/31/2014 Ot V58.69 10/31/2014 Ot 272.4 10/31/2014 Ot 401.9 10/31/2014 Ot 414.00 10/31/2014 Ot V58.69 10/31/2014 MAME GIRARD DO Ot V76.12 10/31/2014 Ot 719.45 10/31/2014 Ot 719.45 10/31/2014 BAIMA, HELENE L DIRECTOR LAW ENFORCEMENT Ot 272.4 10/31/2014 BAIMA, HELENE L DIRECTOR LAW ENFORCEMENT Ot 272.4 10/31/2014 BAIMA, HELENE L DIRECTOR LAW ENFORCEMENT Ot 401.9 10/31/2014 BAIMA, HELENE L DIRECTOR LAW ENFORCEMENT Ot 414.00 10/31/2014 BAIMA, HELENE L DIRECTOR LAW ENFORCEMENT Ot 416.8 10/31/2014 BAIMA, HELENE L DIRECTOR LAW ENFORCEMENT Ot 426.3 10/31/2014 BAIMA, HELENE L DIRECTOR LAW ENFORCEMENT Ot 272.4 10/31/2014 BAIMA, HELENE L DIRECTOR LAW ENFORCEMENT Ot 401.9 10/31/2014 BAIMA, HELENE L DIRECTOR LAW ENFORCEMENT Ot 414.00 10/31/2014 BAIMA, HELENE L DIRECTOR LAW ENFORCEMENT Ot 416.8 10/31/2014 BAIMA, HELENE L DIRECTOR LAW ENFORCEMENT Ot 426.3 10/31/2014 CARISSA DO, ANA LAURA M Ot 272.4 10/31/2014 CARISSA DO, ANA LAURA M Ot 278.00 10/31/2014 CARISSA DO, ANA LAURA M Ot 401.9 10/31/2014 CARISSA DO, ANA LAURA M Ot 414.00 10/31/2014 CARISSA DO, ANA LAURA M Ot 416.8 10/31/2014 CARISSA DO, ANA LAURA M Ot 426.3 10/31/2014 CARISSA DO, ANA LAURA M Ot 428.0 10/31/2014 CARISSA DO, ANA LAURA M Ot 493.90 10/31/2014 CARISSA DO, ANA LAURA M Ot 780.54 10/31/2014 CARISSA DO, ANA LAURA M Ot 786.05 10/31/2014 GELLENDER DO, SHYLA A Ot 786.05 10/31/2014 GELLENDER DOSHYLA A Ot 786.50 10/31/2014 BAIMA, HELENE L DIRECTOR LAW ENFORCEMENT Ot 272.4 10/31/2014 BAIMA, HELENE L DIRECTOR LAW ENFORCEMENT Ot 414.00 10/31/2014 BAIMA, HELENE L DIRECTOR LAW ENFORCEMENT Ot V58.69 10/31/2014 MAME GIRARD DO Ot V76.12 10/31/2014 GELLENDER DOSHYLA Ot 789.01 10/31/2014 GELLENDER DOSHYLA Ot 789.01 10/31/2014 SHYLA WALLACE DO Ot 553.3 10/31/2014 SHYLA WALLACE DO Ot 571.8 10/31/2014 SHYLA WALLACE DO Ot 789.1 10/31/2014 REINIER ADEN DO Ot V72.84 10/31/2014 FELIPE CASILLAS FACC, ALI FACP CCDS Ot 272.4 10/31/2014 FELIPE CASILLAS FACC, ALI FACP CCDS Ot 401.9 10/31/2014 FELIPE CASILLAS FACC, ALI FACP CCDS Ot 416.8 10/31/2014 FELIPE CASILLAS FACC, ALI FACP CCDS Ot 426.3 10/31/2014 FELIPE CASILLAS FACC, ALI FACP CCDS Ot 786.05 10/31/2014 FELIPE CASILLAS FAC, ALI FACP CCDS Ot 786.59 10/31/2014 FELIPE CASILLAS FACC, ALI FACP CCDS Ot V58.69 10/31/2014 FELIPE CASILLAS FACC, ALI FACP CCDS Ot 272.4 10/31/2014 FELIPE CASILLAS FACC, ALI FACP CCDS Ot 397.0 10/31/2014 FELIPE CASILLAS FACC, ALI FACP CCDS Ot 401.9 10/31/2014 FELIPE CASILLAS FACC, ALI FACP CCDS Ot 416.8 10/31/2014 FELIPE CASILLAS FACC, ALI FACP CCDS Ot 424.0 10/31/2014 FELIPE CASILLAS FACC, ALI FACP CCDS Ot 426.3 10/31/2014 FELIPE CASILLAS FACC, ALI FACP CCDS Ot 786.05 10/31/2014 FELIPE CASILLAS [facility], ALI FACP CCDS Ot V58.69 10/31/2014 MOISES SAUL W DIRECTOR LAW ENFORCEMENT Ot V76.12 12/09/2014 CHAITANYA CASILLAS, SCOOTER Haney Ot 401.9 HYPERTENSION NOS 12/09/2014 SCOOTER TAVARES MD Ot 426.11 ATRIOVENT BLOCK-1ST DEGR 12/09/2014 CHAITANYA CASILLAS, SCOOTER Haney Ot 426.3 LEFT BB BLOCK NEC 12/09/2014 SCOOTER TAVARES MD Ot 427.69 PREMATURE BEATS NEC 12/09/2014 SCOOTER TAVARES MD Ot 493.90 ASTHMA, UNSPECIFIED 12/09/2014 SCOOTER TAVARES MD Ot 789.06 ABDOMINAL PAIN, EPIGASTRIC 12/09/2014 SCOOTER TAVARES MD Ot I10 ESSENTIAL (PRIMARY) HYPERTENSION 12/09/2014 SCOOTER TAVARES MD Ot I44.0 ATRIOVENTRICULAR BLOCK, FIRST DEGREE 12/09/2014 SCOOTER TAVARES MD Ot I44.7 LEFT BUNDLE-BRANCH BLOCK, UNSPECIFIED 12/09/2014 SCOOTER TAVARES MD Ot R10.13 EPIGASTRIC PAIN 12/27/2014 KIM ROCA MD Ot 715.31 12/27/2014 KIM ROCA MD Ot 721.0 01/08/2015 KIM ROCA MD Ot 715.31 01/08/2015 KIM ROCA MD Ot 721.0 01/29/2015 KIM ROCA MD Ot 715.31 01/29/2015 KIM ROCA MD Ot 721.0 01/29/2015 KIM ROCA MD Ot M19.90 01/29/2015 KIM ROCA MD Ot M47.812 03/13/2015 MAME GIRARD DO Ot N81.9 03/13/2015 MAME GIRARD DO Ot R10.2 04/01/2015 Ot 272.4 04/01/2015 Ot 414.00 04/01/2015 Ot V58.69 04/01/2015 Ot 272.4 04/01/2015 Ot 414.00 04/01/2015 Ot V58.69 04/01/2015 Ot V58.83 04/01/2015 Ot 272.4 04/01/2015 Ot 401.9 04/01/2015 Ot 414.01 04/01/2015 Ot V58.69 04/01/2015 Ot V76.12 04/01/2015 Ot 727.51 04/01/2015 Ot 729.5 04/01/2015 Ot 429.3 04/01/2015 Ot 715.36 04/01/2015 Ot 791.9 04/01/2015 Ot V57.1 04/01/2015 Ot V57.21 04/01/2015 Ot V58.69 04/01/2015 Ot V72.63 04/01/2015 Ot V72.81 04/01/2015 Ot V58.61 04/01/2015 Ot V58.83 04/01/2015 Ot V58.61 04/01/2015 Ot V58.83 04/01/2015 Ot 599.0 04/01/2015 Ot V58.61 04/01/2015 Ot V58.83 04/01/2015 Ot 272.4 04/01/2015 Ot V58.69 04/01/2015 Ot V76.12 04/01/2015 Ot 272.4 04/01/2015 Ot 401.9 04/01/2015 Ot 414.00 04/01/2015 Ot V58.69 04/01/2015 Ot 401.9 04/01/2015 Ot V58.69 04/01/2015 Ot 272.4 04/01/2015 Ot 401.9 04/01/2015 Ot 414.00 04/01/2015 Ot V58.69 04/01/2015 SHAJI PEDRAZA MAME Kelly Ot V76.12 04/01/2015 Ot 719.45 04/01/2015 Ot 719.45 04/01/2015 BAIMA, HELENE L DIRECTOR LAW ENFORCEMENT Ot 272.4 04/01/2015 BAIMA, HELENE L DIRECTOR LAW ENFORCEMENT Ot 272.4 04/01/2015 BAIMA, HELENE L DIRECTOR LAW ENFORCEMENT Ot 401.9 04/01/2015 BAIMA, HELENE L DIRECTOR LAW ENFORCEMENT Ot 414.00 04/01/2015 BAIMA, HELENE L DIRECTOR LAW ENFORCEMENT Ot 416.8 04/01/2015 BAIMA, HELENE L DIRECTOR LAW ENFORCEMENT Ot 426.3 04/01/2015 BAIMA, HELENE L DIRECTOR LAW ENFORCEMENT Ot 272.4 04/01/2015 BAIMA, HELENE L DIRECTOR LAW ENFORCEMENT Ot 401.9 04/01/2015 BAIMA, HELENE L DIRECTOR LAW ENFORCEMENT Ot 414.00 04/01/2015 BAIMA, HELENE L DIRECTOR LAW ENFORCEMENT Ot 416.8 04/01/2015 BAIMA, HELENE L DIRECTOR LAW ENFORCEMENT Ot 426.3 04/01/2015 ANA LAURA FERRER DO M Ot 272.4 04/01/2015 ANA LAURA FERRER DO M Ot 278.00 04/01/2015 ANA LAURA FERRER DO M Ot 401.9 04/01/2015 ANA LAURA FERRER DO Ot 414.00 04/01/2015 ANA LAURA FERRER DO M Ot 416.8 04/01/2015 ANA LAURA FERRER DO M Ot 426.3 04/01/2015 ANA LAURA FERRER DO Ot 428.0 04/01/2015 ANA LAURA FERRER DO Ot 493.90 04/01/2015 ANA LAURA FERRER DO Ot 780.54 04/01/2015 ANA LAURA FERRER DO Ot 786.05 04/01/2015 [facility] SHYLA PEDRAZA Ot 786.05 04/01/2015 [facility] , SHYLA Lazcano Ot 786.50 04/01/2015 HELENE TEJEDA DIRECTOR LAW ENFORCEMENT Ot 272.4 04/01/2015 BEVERLYHELENE LUU DIRECTOR LAW ENFORCEMENT Ot 414.00 04/01/2015 HELENE TEJEDA DIRECTOR LAW ENFORCEMENT Ot V58.69 04/01/2015 MAME GIRARD DO Ot V76.12 04/01/2015 [facility] , SHYLA Lazcano Ot 789.01 04/01/2015 [facility] , SHYLA Lazcano Ot 789.01 04/01/2015 [facility] , SHYLA Lazcano Ot 553.3 04/01/2015 [facility] DO, SHYLA Lazcano Ot 571.8 04/01/2015 [facility] DO, SHYLA Lazcano Ot 789.1 04/01/2015 ADEN REINIER PEDRAZA Medina Ot V72.84 04/01/2015 FELIPE CASILLAS FACC, ALI FACP CCDS Ot 272.4 04/01/2015 FELIPE CASILLAS FACC, ALI FACP CCDS Ot 401.9 04/01/2015 FELIPE CASILLAS FACC, ALI FACP CCDS Ot 416.8 04/01/2015 FELIPE CASILLAS FACC, ALI FACP CCDS Ot 426.3 04/01/2015 FELIPE CASILLAS FACC, ALI FACP CCDS Ot 786.05 04/01/2015 FELIPE CASILLAS FACC, ALI FACP CCDS Ot 786.59 04/01/2015 FELIPE CASILLAS FACC, ALI FACP CCDS Ot V58.69 04/01/2015 FELIPE CASILLAS FACC, ALI FACP CCDS Ot 272.4 04/01/2015 FELIPE CASILLAS FACC, ALI FACP CCDS Ot 397.0 04/01/2015 FELIPE CASILLAS FACC, ALI FACP CCDS Ot 401.9 04/01/2015 FELIPE CASILLAS FACC, ALI FACP CCDS Ot 416.8 04/01/2015 FELIPE CASILLAS FACC, ALI FACP CCDS Ot 424.0 04/01/2015 FELIPE CASILLAS [facility], TRISHA ROBERTSP CCDS Ot 426.3 04/01/2015 FELIPE CASILLAS FAC, [facility] CCD[facility] Ot 786.05 04/01/2015 FELIPE CASILLAS [facility], TRISHA [facility] CCD[facility] Ot V58.69 04/01/2015 DORYSMOISES MEHRDAD Ot V76.12 04/01/2015 CHANELLE CASILLAS, KIM Ruff Ot 715.31 04/01/2015 KIM ROCA MD Ot 721.0 04/01/2015 KIM ROCA MD Ot M19.90 04/01/2015 KIM ROCA MD Ot M47.812 04/01/2015 GIRARD DOJAGDISHA C Ot N81.9 04/01/2015 GIRARD DO MAME C Ot R10.2 09/23/2015 GIRARD DO MAME C Ot N81.9 FEMALE GENITAL PROLAPSE, UNSPECIFIED 09/23/2015 GIRARD DO MAME C Ot R10.2 PELVIC AND PERINEAL PAIN 10/03/2015 GELLENDER DO, SHYLA Lazcano Ot M79.604 PAIN IN RIGHT LEG 10/04/2015 GELLENDER DO, SHYLA A Ot M79.604 PAIN IN RIGHT LEG 10/23/2015 GELLENDER DO, SHYLA A Ot M79.604 PAIN IN RIGHT LEG 11/21/2015 GELLENDER DO, SHYLA A Ot M79.604 PAIN IN RIGHT LEG 12/12/2015 Ot 599.0 URIN TRACT INFECTION NOS 01/07/2016 Ot V76.12 OTH SCREEN MAMMO- MALIGN NEOPLASM OF [place] 01/07/2016 Ot 429.3 CARDIOMEGALY 01/07/2016 Ot 715.36 LOC OSTEOARTH NOS-L/LEG 01/07/2016 Ot 791.9 ABN URINE FINDINGS NEC 01/07/2016 Ot V57.1 PHYSICAL THERAPY NEC 01/07/2016 Ot V57.21 ENCOUNTER FOR OCCUPATIONAL THERAPY 01/07/2016 Ot V58.69 OTH MED,LT,CURRENT USE 01/07/2016 Ot V72.63 PRE-PROCEDURAL LABORATORY EXAMINATION 01/07/2016 Ot V72.81 [id number] CARDIOVASCULAR 01/07/2016 Ot V58.61 ANTICOAGULANTS,LT,CURRENT USE 01/07/2016 Ot V58.83 ENCOUNTER FOR THERAPEUTIC DRUG MONITORIN 01/07/2016 Ot V58.61 ANTICOAGULANTS,LT,CURRENT USE 01/07/2016 Ot V58.83 ENCOUNTER FOR THERAPEUTIC DRUG MONITORIN 01/07/2016 Ot 599.0 URIN TRACT INFECTION NOS 01/07/2016 Ot V58.61 ANTICOAGULANTS,LT,CURRENT USE 01/07/2016 Ot V58.83 ENCOUNTER FOR THERAPEUTIC DRUG MONITORIN 01/07/2016 Ot 272.4 HYPERLIPIDEMIA NEC/NOS 01/07/2016 Ot V58.69 OTH MED,LT,CURRENT USE 01/07/2016 Ot V76.12 OTH SCREEN MAMMO- MALIGN NEOPLASM OF [place] 01/07/2016 Ot 272.4 HYPERLIPIDEMIA NEC/NOS 01/07/2016 Ot 401.9 HYPERTENSION NOS 01/07/2016 Ot 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 NOS TYPE VESSEL, NATIV 01/07/2016 Ot V58.69 OTH MED,LT,CURRENT USE 01/07/2016 Ot 401.9 HYPERTENSION NOS 01/07/2016 Ot V58.69 OTH MED,LT,CURRENT USE 01/07/2016 Ot 272.4 HYPERLIPIDEMIA NEC/NOS 01/07/2016 Ot 401.9 HYPERTENSION NOS 01/07/2016 Ot 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 NOS TYPE VESSEL, NATIV 01/07/2016 Ot V58.69 OTH MED,LT,CURRENT USE 01/07/2016 MAME GIRARD DO Ot V76.12 OTH SCREEN MAMMO-MALIGN NEOPLASM OF [place] 01/07/2016 Ot 719.45 JOINT PAIN-PELVIS 01/07/2016 Ot 719.45 JOINT PAIN-PELVIS 01/07/2016 BAIMA, HELENE L DIRECTOR LAW ENFORCEMENT Ot 272.4 HYPERLIPIDEMIA NEC/NOS 01/07/2016 BAIMA, HELENE L DIRECTOR LAW ENFORCEMENT Ot 272.4 HYPERLIPIDEMIA NEC/NOS 01/07/2016 BAIMA, HELENE L DIRECTOR LAW ENFORCEMENT Ot 401.9 HYPERTENSION NOS 01/07/2016 BAIMA, HELENE L DIRECTOR LAW ENFORCEMENT Ot 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 NOS TYPE VESSEL, NATIV 01/07/2016 BAIMA, HELENE L DIRECTOR LAW ENFORCEMENT Ot 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 NEC 01/07/2016 BAIMA, HELENE L DIRECTOR LAW ENFORCEMENT Ot 426.3 LEFT BB BLOCK NEC 01/07/2016 BAIMA, HELENE L DIRECTOR LAW ENFORCEMENT Ot 272.4 HYPERLIPIDEMIA NEC/NOS 01/07/2016 BAIMA, HELENE L DIRECTOR LAW ENFORCEMENT Ot 401.9 HYPERTENSION NOS 01/07/2016 HELENE TEJEDA L DIRECTOR LAW ENFORCEMENT Ot 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 NOS TYPE VESSEL, NATIV 01/07/2016 HELENE TEJEDA L DIRECTOR LAW ENFORCEMENT Ot 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 NEC 01/07/2016 HELENE TEJEDA L DIRECTOR LAW ENFORCEMENT Ot 426.3 LEFT BB BLOCK NEC 01/07/2016 ANA LAURA FERRER DO Ot 272.4 HYPERLIPIDEMIA NEC/NOS 01/07/2016 ANA LAURA FERRER DO Ot 278.00 OBESITY, NOS 01/07/2016 ANA LAURA FERRER DO Ot 401.9 HYPERTENSION NOS 01/07/2016 ANA LAURA FERRER DO Ot 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 NOS TYPE VESSEL, NATIV 01/07/2016 ANA LAURA FERRER DO Ot 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 NEC 01/07/2016 ANA LAURA FERRER DO Ot 426.3 LEFT BB BLOCK NEC 01/07/2016 ANA LAURA FERRER DO Ot 428.0 CONGESTIVE HEART FAILURE NOS 01/07/2016 ANA LAURA FERRER DO Ot 493.90 ASTHMA, UNSPECIFIED 01/07/2016 ANA LAURA FERRER DO Ot 780.54 HYPERSOMNIA, UNSPECIFIED 01/07/2016 ANA LAURA FERRER DO Ot 786.05 SHORTNESS OF BREATH 01/07/2016 SHYLA WALLACE DO Ot 786.05 SHORTNESS OF BREATH 01/07/2016 SHYLA WALLACE DO Ot 786.50 CHEST PAIN NOS 01/07/2016 BEVERLYHELENE LUU DIRECTOR LAW ENFORCEMENT Ot 272.4 HYPERLIPIDEMIA NEC/NOS 01/07/2016 BEVERLYHELENE LUU Tab DIRECTOR LAW ENFORCEMENT Ot 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 NOS TYPE VESSEL, NATIV 01/07/2016 HELENE TEJEDA DIRECTOR LAW ENFORCEMENT Ot V58.69 OTH MED,LT,CURRENT USE 01/07/2016 MAME GIRARD DO Ot V76.12 OTH SCREEN MAMMO-MALIGN NEOPLASM OF [place] 01/07/2016 SHYLA WALLACE DO Ot 789.01 ABDOMINAL PAIN, RIGHT UPPER QUADRANT 01/07/2016 SHYLA WALLACE DO Ot 789.01 ABDOMINAL PAIN, RIGHT UPPER QUADRANT 01/07/2016 SHYLA WALLACE DO Ot 553.3 DIAPHRAGMATIC HERNIA 01/07/2016 GELLENDER DO, SHYLA A Ot 571.8 CHRONIC LIVER DIS NEC 01/07/2016 SHYLA WALLACE DO Ot 789.1 HEPATOMEGALY 01/07/2016 REINIER ADEN DO Ot V72.84 EXAM PRE-OPERATIVE NOS 01/07/2016 FELIPE ROBERTSC, ALI FACP CCDS Ot 272.4 HYPERLIPIDEMIA NEC/NOS 01/07/2016 FELIPE CASILLAS FACC, ALI FACP CCDS Ot 401.9 HYPERTENSION NOS 01/07/2016 FELIPE CASILLAS FACC, ALI FACP CCDS Ot 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 NEC 01/07/2016 FELIPE CASILLAS FACC, ALI FACP CCDS Ot 426.3 LEFT BB BLOCK NEC 01/07/2016 FELIPE CASILLAS FACC, ALI FACP CCDS Ot 786.05 SHORTNESS OF BREATH 01/07/2016 FELIPE CASILLAS FACC, ALI FACP CCDS Ot 786.59 CHEST PAIN NEC 01/07/2016 FELIPE CASILLAS FACC, ALI FACP CCDS Ot V58.69 OTH MED,LT,CURRENT USE 01/07/2016 FELIPE ROBERTSC, ALI FACP CCDS Ot 272.4 HYPERLIPIDEMIA NEC/NOS 01/07/2016 FELIPE CASILLAS FACC, ALI FACP CCDS Ot 397.0 TRICUSPID VALVE DISEASE 01/07/2016 FELIPE CASILLAS FACC, ALI FACP CCDS Ot 401.9 HYPERTENSION NOS 01/07/2016 FELIPE CASILLAS FACC, ALI FACP CCDS Ot 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 NEC 01/07/2016 FELIPE CASILLAS FACC, ALI FACP CCDS Ot 424.0 MITRAL VALVE DISORDER 01/07/2016 FELIPE CASILLAS FACC, ALI FACP CCDS Ot 426.3 LEFT BB BLOCK NEC 01/07/2016 FELIPE CASILLAS FACKelly, ALI FACP CCDS Ot 786.05 SHORTNESS OF BREATH 01/07/2016 FELIPE CASILLAS FACKelly, ALI FACP CCDS Ot V58.69 OTH MED,LT,CURRENT USE 01/07/2016 MOISES SAUL Ot V76.12 OTH SCREEN MAMMO-MALIGN NEOPLASM OF [place] 01/07/2016 KIM ROCA MD Ot 715.31 LOC OSTEOARTH NOS-SHLDER 01/07/2016 KIM ROCA MD Ot 721.0 CERVICAL SPONDYLOSIS 01/07/2016 KIM ROCA MD Ot M19.90 UNSPECIFIED OSTEOARTHRITIS, UNSPECIFIED 01/07/2016 CHANELLE CASILLAS, KIM Ruff Ot M47.812 SPONDYLOSIS W/O MYELOPATHY OR RADICULOPA 01/07/2016 MAME GIRARD DO Kelly Ot N81.9 FEMALE GENITAL PROLAPSE, UNSPECIFIED 01/07/2016 MAME GIRARD DO Kelly Ot R10.2 PELVIC AND PERINEAL PAIN 01/07/2016 RODRIGO PEDRAZA SHYLA Lazcano Ot M79.604 PAIN IN RIGHT LEG 01/08/2016 RODRIGO PEDRAZA SHYLA Jaleesa Ot R06.02 SHORTNESS OF BREATH 01/08/2016 RODRIGO PEDRAZA SHYLA Lazcano Ot R53.83 OTHER FATIGUE 01/08/2016 GILLIAN DE PAZ DO Ot I10 ESSENTIAL (PRIMARY) HYPERTENSION 01/08/2016 GILLIAN DE PAZ DO Ot R07.89 OTHER CHEST PAIN 01/08/2016 GILLIAN DE PAZ DO Ot R53.83 OTHER FATIGUE 01/08/2016 GILLIAN DE PAZ DO Ot Z79.82 COTA (CURRENT) USE OF ASPIRIN 01/08/2016 GILLIAN DE PAZ DO Ot Z79.899 OTHER MCC (CURRENT) DRUG THERAPY 01/09/2016 LEW DE PAZ DOA Vanessa Ot I10 ESSENTIAL (PRIMARY) HYPERTENSION 01/09/2016 BALDEV PEDRAZA GILLIAN Mendez Ot R07.89 OTHER CHEST PAIN 01/09/2016 BALDEV LEW PEDRAZAA K Ot R53.83 OTHER FATIGUE 01/09/2016 GILLIAN DE PAZ DO Ot Z79.82 MCC (CURRENT) USE OF ASPIRIN 01/09/2016 GILLIAN DE PAZ DO Ot Z79.899 OTHER COTA (CURRENT) DRUG THERAPY 01/14/2016 Ot V76.12 OTH SCREEN MAMMO- MALIGN NEOPLASM OF [place] 01/14/2016 Ot 429.3 CARDIOMEGALY 01/14/2016 Ot 715.36 LOC OSTEOARTH NOS-L/LEG 01/14/2016 Ot 791.9 ABN URINE FINDINGS NEC 01/14/2016 Ot V57.1 PHYSICAL THERAPY NEC 01/14/2016 Ot V57.21 ENCOUNTER FOR OCCUPATIONAL THERAPY 01/14/2016 Ot V58.69 OTH MED,LT,CURRENT USE 01/14/2016 Ot V72.63 PRE-PROCEDURAL LABORATORY EXAMINATION 01/14/2016 Ot V72.81 ASDX-[id number]-EOARULITC CARDIOVASCULAR 01/14/2016 Ot V58.61 ANTICOAGULANTS,LT,CURRENT USE 01/14/2016 Ot V58.83 ENCOUNTER FOR THERAPEUTIC DRUG MONITORIN 01/14/2016 Ot V58.61 ANTICOAGULANTS,LT,CURRENT USE 01/14/2016 Ot V58.83 ENCOUNTER FOR THERAPEUTIC DRUG MONITORIN 01/14/2016 Ot 599.0 URIN TRACT INFECTION NOS 01/14/2016 Ot V58.61 ANTICOAGULANTS,LT,CURRENT USE 01/14/2016 Ot V58.83 ENCOUNTER FOR THERAPEUTIC DRUG MONITORIN 01/14/2016 Ot 272.4 HYPERLIPIDEMIA NEC/NOS 01/14/2016 Ot V58.69 OTH MED,LT,CURRENT USE 01/14/2016 Ot V76.12 OTH SCREEN MAMMO- MALIGN NEOPLASM OF [place] 01/14/2016 Ot 272.4 HYPERLIPIDEMIA NEC/NOS 01/14/2016 Ot 401.9 HYPERTENSION NOS 01/14/2016 Ot 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 NOS TYPE VESSEL, NATIV 01/14/2016 Ot V58.69 OTH MED,LT,CURRENT USE 01/14/2016 Ot 401.9 HYPERTENSION NOS 01/14/2016 Ot V58.69 OTH MED,LT,CURRENT USE 01/14/2016 Ot 272.4 HYPERLIPIDEMIA NEC/NOS 01/14/2016 Ot 401.9 HYPERTENSION NOS 01/14/2016 Ot 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 NOS TYPE VESSEL, NATIV 01/14/2016 Ot V58.69 OTH MED,LT,CURRENT USE 01/14/2016 MAME GIRARD DO Ot V76.12 OTH SCREEN MAMMO-MALIGN NEOPLASM OF [place] 01/14/2016 Ot 719.45 JOINT PAIN-PELVIS 01/14/2016 Ot 719.45 JOINT PAIN-PELVIS 01/14/2016 BAIMA, HELENE L DIRECTOR LAW ENFORCEMENT Ot 272.4 HYPERLIPIDEMIA NEC/NOS 01/14/2016 BAIMA, HEELNE L DIRECTOR LAW ENFORCEMENT Ot 272.4 HYPERLIPIDEMIA NEC/NOS 01/14/2016 BAIMA, HELENE L DIRECTOR LAW ENFORCEMENT Ot 401.9 HYPERTENSION NOS 01/14/2016 BAIMA, HELENE L DIRECTOR LAW ENFORCEMENT Ot 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 NOS TYPE VESSEL, NATIV 01/14/2016 BAIMA, HELENE L DIRECTOR LAW ENFORCEMENT Ot 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 NEC 01/14/2016 BAIMA, HELENE L DIRECTOR LAW ENFORCEMENT Ot 426.3 LEFT BB BLOCK NEC 01/14/2016 BAIMA, HELENE L DIRECTOR LAW ENFORCEMENT Ot 272.4 HYPERLIPIDEMIA NEC/NOS 01/14/2016 BAIMA, HELENE L DIRECTOR LAW ENFORCEMENT Ot 401.9 HYPERTENSION NOS 01/14/2016 BAIMA, HELENE L DIRECTOR LAW ENFORCEMENT Ot 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 NOS TYPE VESSEL, NATIV 01/14/2016 BAIBELL, HELENE L DIRECTOR LAW ENFORCEMENT Ot 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 NEC 01/14/2016 BAIBELL HELENE L DIRECTOR LAW ENFORCEMENT Ot 426.3 LEFT BB BLOCK NEC 01/14/2016 ANA LAURA FERRER DO Ot 272.4 HYPERLIPIDEMIA NEC/NOS 01/14/2016 ANA LAURA FERRER DO Ot 278.00 OBESITY, NOS 01/14/2016 ANA LAURA FERRER DO Ot 401.9 HYPERTENSION NOS 01/14/2016 ANA LAURA FERRER DO Ot 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 NOS TYPE VESSEL, NATIV 01/14/2016 ANA LAURA FERRER DO Ot 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 NEC 01/14/2016 ANA LAURA FERRER DO Ot 426.3 LEFT BB BLOCK NEC 01/14/2016 ANA LAURA FERRER DO Ot 428.0 CONGESTIVE HEART FAILURE NOS 01/14/2016 ANA LAURA FERRER DO Ot 493.90 ASTHMA, UNSPECIFIED 01/14/2016 ANA LAURA FERRER DO Ot 780.54 HYPERSOMNIA, UNSPECIFIED 01/14/2016 ANA LAURA FERRER DO Ot 786.05 SHORTNESS OF BREATH 01/14/2016 SHYLA WALLACE DO Ot 786.05 SHORTNESS OF BREATH 01/14/2016 SHYLA WALLACE DO Ot 786.50 CHEST PAIN NOS 01/14/2016 BEVERLYBELL, HELENE L DIRECTOR LAW ENFORCEMENT Ot 272.4 HYPERLIPIDEMIA NEC/NOS 01/14/2016 BAIBELL, HELNEE L DIRECTOR LAW ENFORCEMENT Ot 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 NOS TYPE VESSEL, NATIV 01/14/2016 BEVERLYBELL, HELENE L DIRECTOR LAW ENFORCEMENT Ot V58.69 OTH MED,LT,CURRENT USE 01/14/2016 MMAE GIRARD DO Ot V76.12 OTH SCREEN MAMMO-MALIGN NEOPLASM OF [place] 01/14/2016 SHYLA WALLACE DO Ot 789.01 ABDOMINAL PAIN, RIGHT UPPER QUADRANT 01/14/2016 SHYLA WALLACE DO Ot 789.01 ABDOMINAL PAIN, RIGHT UPPER QUADRANT 01/14/2016 SHYLA WALLACE DO Ot 553.3 DIAPHRAGMATIC HERNIA 01/14/2016 SHYLA WALLACE DO Ot 571.8 CHRONIC LIVER DIS NEC 01/14/2016 SHYLA WALLACE DO Ot 789.1 HEPATOMEGALY 01/14/2016 REINIER ADEN DO Ot V72.84 EXAM PRE-OPERATIVE NOS 01/14/2016 FELIPE ROBERTSC, ALI FACP CCDS Ot 272.4 HYPERLIPIDEMIA NEC/NOS 01/14/2016 FELIPE CASILLAS FACC, ALI FACP CCDS Ot 401.9 HYPERTENSION NOS 01/14/2016 FELIPE CASILLAS FACC, ALI FACP CCDS Ot 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 NEC 01/14/2016 FELIPE CASILLAS FACC, ALI FACP CCDS Ot 426.3 LEFT BB BLOCK NEC 01/14/2016 FELIPE CASILLAS FACC, ALI FACP CCDS Ot 786.05 SHORTNESS OF BREATH 01/14/2016 FELIPE CASILLAS FACC, ALI FACP CCDS Ot 786.59 CHEST PAIN NEC 01/14/2016 FELIPE CASILLAS FACC, ALI FACP CCDS Ot V58.69 OTH MED,LT,CURRENT USE 01/14/2016 FELIPE CASILLAS FACC, ALI FACP CCDS Ot 272.4 HYPERLIPIDEMIA NEC/NOS 01/14/2016 FELIPE CASILLAS FACC, ALI FACP CCDS Ot 397.0 TRICUSPID VALVE DISEASE 01/14/2016 FELIPE CASILLAS FACC, ALI FACP CCDS Ot 401.9 HYPERTENSION NOS 01/14/2016 FELIPE CASILLAS FACC, ALI FACP CCDS Ot 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 NEC 01/14/2016 FELIPE CASILLAS FACC, ALI FACP CCDS Ot 424.0 MITRAL VALVE DISORDER 01/14/2016 FELIPE CASILLAS FACC, ALI FACP CCDS Ot 426.3 LEFT BB BLOCK NEC 01/14/2016 FELIPE CASILLAS FACC, ALI FACP CCDS Ot 786.05 SHORTNESS OF BREATH 01/14/2016 FELIPE CASILLAS FACC, ALI FACP CCDS Ot V58.69 OTH MED,LT,CURRENT USE 01/14/2016 MOISES SAUL Ot V76.12 OTH SCREEN MAMMO-MALIGN NEOPLASM OF [place] 01/14/2016 KIM ROCA MD Ot 715.31 LOC OSTEOARTH NOS-SHLDER 01/14/2016 CHANELLE CASILLAS, KIM Ruff Ot 721.0 CERVICAL SPONDYLOSIS 01/14/2016 KIM ROCA MD Ot M19.90 UNSPECIFIED OSTEOARTHRITIS, UNSPECIFIED 01/14/2016 CHANELLE CASILLAS, KIM Ruff Ot M47.812 SPONDYLOSIS W/O MYELOPATHY OR RADICULOPA 01/14/2016 GIRARDHarrison PEDRAZA MAME C Ot N81.9 FEMALE GENITAL PROLAPSE, UNSPECIFIED 01/14/2016 GIRARDHarrison PEDRAZA MAME C Ot R10.2 PELVIC AND PERINEAL PAIN 01/14/2016 SHYLA WALLACE DO Ot M79.604 PAIN IN RIGHT LEG 01/14/2016 RODRIGO PEDRAZA SHYLA Jaleesa Ot R06.02 SHORTNESS OF BREATH 01/14/2016 RODRIGO PEDRAZA SHYLA Jaleesa Ot R53.83 OTHER FATIGUE 01/15/2016 Ot V76.12 OTH SCREEN MAMMO- MALIGN NEOPLASM OF [place] 01/15/2016 Ot 429.3 CARDIOMEGALY 01/15/2016 Ot 715.36 LOC OSTEOARTH NOS-L/LEG 01/15/2016 Ot 791.9 ABN URINE FINDINGS NEC 01/15/2016 Ot V57.1 PHYSICAL THERAPY NEC 01/15/2016 Ot V57.21 ENCOUNTER FOR OCCUPATIONAL THERAPY 01/15/2016 Ot V58.69 OTH MED,LT,CURRENT USE 01/15/2016 Ot V72.63 PRE-PROCEDURAL LABORATORY EXAMINATION 01/15/2016 Ot V72.81 [id number] CARDIOVASCULAR 01/15/2016 Ot V58.61 ANTICOAGULANTS,LT,CURRENT USE 01/15/2016 Ot V58.83 ENCOUNTER FOR THERAPEUTIC DRUG MONITORIN 01/15/2016 Ot V58.61 ANTICOAGULANTS,LT,CURRENT USE 01/15/2016 Ot V58.83 ENCOUNTER FOR THERAPEUTIC DRUG MONITORIN 01/15/2016 Ot 599.0 URIN TRACT INFECTION NOS 01/15/2016 Ot V58.61 ANTICOAGULANTS,LT,CURRENT USE 01/15/2016 Ot V58.83 ENCOUNTER FOR THERAPEUTIC DRUG MONITORIN 01/15/2016 Ot 272.4 HYPERLIPIDEMIA NEC/NOS 01/15/2016 Ot V58.69 OTH MED,LT,CURRENT USE 01/15/2016 Ot V76.12 OTH SCREEN MAMMO- MALIGN NEOPLASM OF [place] 01/15/2016 Ot 272.4 HYPERLIPIDEMIA NEC/NOS 01/15/2016 Ot 401.9 HYPERTENSION NOS 01/15/2016 Ot 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 NOS TYPE VESSEL, NATIV 01/15/2016 Ot V58.69 OTH MED,LT,CURRENT USE 01/15/2016 Ot 401.9 HYPERTENSION NOS 01/15/2016 Ot V58.69 OTH MED,LT,CURRENT USE 01/15/2016 Ot 272.4 HYPERLIPIDEMIA NEC/NOS 01/15/2016 Ot 401.9 HYPERTENSION NOS 01/15/2016 Ot 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 NOS TYPE VESSEL, NATIV 01/15/2016 Ot V58.69 OTH MED,LT,CURRENT USE 01/15/2016 MAME GIRARD DO Ot V76.12 OTH SCREEN MAMMO-MALIGN NEOPLASM OF [place] 01/15/2016 Ot 719.45 JOINT PAIN-PELVIS 01/15/2016 Ot 719.45 JOINT PAIN-PELVIS 01/15/2016 BAIMA, HELENE L DIRECTOR LAW ENFORCEMENT Ot 272.4 HYPERLIPIDEMIA NEC/NOS 01/15/2016 BAIMA, HELENE L DIRECTOR LAW ENFORCEMENT Ot 272.4 HYPERLIPIDEMIA NEC/NOS 01/15/2016 BAIMA, HELENE L DIRECTOR LAW ENFORCEMENT Ot 401.9 HYPERTENSION NOS 01/15/2016 BAIMA, HELENE L DIRECTOR LAW ENFORCEMENT Ot 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 NOS TYPE VESSEL, NATIV 01/15/2016 BAIMA, HELENE L DIRECTOR LAW ENFORCEMENT Ot 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 NEC 01/15/2016 BAIMA, HELENE L DIRECTOR LAW ENFORCEMENT Ot 426.3 LEFT BB BLOCK NEC 01/15/2016 BAIMA, HELENE L DIRECTOR LAW ENFORCEMENT Ot 272.4 HYPERLIPIDEMIA NEC/NOS 01/15/2016 BAIMA, HELENE L DIRECTOR LAW ENFORCEMENT Ot 401.9 HYPERTENSION NOS 01/15/2016 BAIMA, HELENE L DIRECTOR LAW ENFORCEMENT Ot 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 NOS TYPE VESSEL, NATIV 01/15/2016 BAIMA, HELENE L DIRECTOR LAW ENFORCEMENT Ot 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 NEC 01/15/2016 BAIMA, HELENE L DIRECTOR LAW ENFORCEMENT Ot 426.3 LEFT BB BLOCK NEC 01/15/2016 ANA LAURA FERRER DO Ot 272.4 HYPERLIPIDEMIA NEC/NOS 01/15/2016 ANA LAURA FERRER DO Ot 278.00 OBESITY, NOS 01/15/2016 ANA LAURA FERRER DO Ot 401.9 HYPERTENSION NOS 01/15/2016 ANA LAURA FERRER DO Ot 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 NOS TYPE VESSEL, NATIV 01/15/2016 ANA LAURA FERRER DO Ot 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 NEC 01/15/2016 ANA LAURA FERRER DO Ot 426.3 LEFT BB BLOCK NEC 01/15/2016 ANA LAURA FERRER DO Ot 428.0 CONGESTIVE HEART FAILURE NOS 01/15/2016 ANA LAURA FERRER DO Ot 493.90 ASTHMA, UNSPECIFIED 01/15/2016 ANA LAURA FERRER DO Ot 780.54 HYPERSOMNIA, UNSPECIFIED 01/15/2016 ANA LAURA FERRER DO Ot 786.05 SHORTNESS OF BREATH 01/15/2016 MIKALAFELICIANO PEDRAZA SHYLA Jaleesa Ot 786.05 SHORTNESS OF BREATH 01/15/2016 SHYLA WALLACE DO Ot 786.50 CHEST PAIN NOS 01/15/2016 HELENE TEJEDA DIRECTOR LAW ENFORCEMENT Ot 272.4 HYPERLIPIDEMIA NEC/NOS 01/15/2016 HELENE TEJEDA DIRECTOR LAW ENFORCEMENT Ot 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 NOS TYPE VESSEL, NATIV 01/15/2016 HELENE TEJEDA DIRECTOR LAW ENFORCEMENT Ot V58.69 OTH MED,LT,CURRENT USE 01/15/2016 MAME GIRARD DO Ot V76.12 OTH SCREEN MAMMO-MALIGN NEOPLASM OF [place] 01/15/2016 SHYLA WALLACE DO Ot 789.01 ABDOMINAL PAIN, RIGHT UPPER QUADRANT 01/15/2016 SHYLA WALLACE DO Ot 789.01 ABDOMINAL PAIN, RIGHT UPPER QUADRANT 01/15/2016 SHYLA WALLACE DO Ot 553.3 DIAPHRAGMATIC HERNIA 01/15/2016 SHYLA WALLACE DO Ot 571.8 CHRONIC LIVER DIS NEC 01/15/2016 SHYLA WALLACE DO Ot 789.1 HEPATOMEGALY 01/15/2016 REINIER ADEN DO Ot V72.84 EXAM PRE-OPERATIVE NOS 01/15/2016 FELIPE CASILLAS FACC, ALI FACP CCDS Ot 272.4 HYPERLIPIDEMIA NEC/NOS 01/15/2016 FELIPE CASILLAS FACC, ALI FACP CCDS Ot 401.9 HYPERTENSION NOS 01/15/2016 FELIPE CASILLAS FACC, ALI FACP CCDS Ot 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 NEC 01/15/2016 FELIPE CASILLAS FACC, ALI FACP CCDS Ot 426.3 LEFT BB BLOCK NEC 01/15/2016 FELIPE CASILLAS FACC, ALI FACP CCDS Ot 786.05 SHORTNESS OF BREATH 01/15/2016 FELIPE MD FACC, ALI FACP CCDS Ot 786.59 CHEST PAIN NEC 01/15/2016 FELIPE MD FACC, ALI FACP CCDS Ot V58.69 OTH MED,LT,CURRENT USE 01/15/2016 FELIPE MD FACC, ALI FACP CCDS Ot 272.4 HYPERLIPIDEMIA NEC/NOS 01/15/2016 FELIPE FACC, ALI FACP CCDS Ot 397.0 TRICUSPID VALVE DISEASE 01/15/2016 FELIPE MD FACC, ALI FACP CCDS Ot 401.9 HYPERTENSION NOS 01/15/2016 FELIPE MD FACC, ALI FACP CCDS Ot 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 NEC 01/15/2016 FELIPE MD FACC, ALI FACP CCDS Ot 424.0 MITRAL VALVE DISORDER 01/15/2016 FELIPE MD FACC, ALI FACP CCDS Ot 426.3 LEFT BB BLOCK NEC 01/15/2016 FELIPE CASILLAS FACC, ALI FACP CCDS Ot 786.05 SHORTNESS OF BREATH 01/15/2016 FELIPE CASILLAS FACC, ALI FACP CCDS Ot V58.69 OTH MED,LT,CURRENT USE 01/15/2016 MOISES SAUL DIRECTOR LAW ENFORCEMENT Ot V76.12 OTH SCREEN MAMMO-MALIGN NEOPLASM OF [place] 01/15/2016 KIM ROCA MD Ot 715.31 LOC OSTEOARTH NOS-SHLDER 01/15/2016 KIM ROCA MD Ot 721.0 CERVICAL SPONDYLOSIS 01/15/2016 KIM ROCA MD Ot M19.90 UNSPECIFIED OSTEOARTHRITIS, UNSPECIFIED 01/15/2016 KIM ROCA MD Ot M47.812 SPONDYLOSIS W/O MYELOPATHY OR RADICULOPA 01/15/2016 MAME GIRARD DO Ot N81.9 FEMALE GENITAL PROLAPSE, UNSPECIFIED 01/15/2016 MAME GIRARD DO Ot R10.2 PELVIC AND PERINEAL PAIN 01/15/2016 SHYLA WALLACE DO Ot M79.604 PAIN IN RIGHT LEG 01/15/2016 SHYLA WALLACE DO Ot R06.02 SHORTNESS OF BREATH 01/15/2016 SHYLA WALLACE DO Ot R53.83 OTHER FATIGUE 01/15/2016 SHYLA WALLACE DO Ot R06.02 SHORTNESS OF BREATH 01/15/2016 SHYLA WALLACE DO Ot R53.83 OTHER FATIGUE 01/20/2016 BAIMA, HELENE L DIRECTOR LAW ENFORCEMENT Ot E78.4 OTHER HYPERLIPIDEMIA 01/20/2016 BAIMA, HELENE L DIRECTOR LAW ENFORCEMENT Ot I10 ESSENTIAL (PRIMARY) HYPERTENSION 01/20/2016 BAIMA, HELENE L DIRECTOR LAW ENFORCEMENT Ot I25.10 ATHSCL HEART DISEASE OF [place] CORONARY 01/20/2016 BAIMA, HELENE L DIRECTOR LAW ENFORCEMENT Ot I44.7 LEFT BUNDLE-BRANCH BLOCK, UNSPECIFIED 01/20/2016 BAIMA, HELENE L DIRECTOR LAW ENFORCEMENT Ot R06.09 OTHER FORMS OF DYSPNEA 01/20/2016 BAIMA, HELENE L DIRECTOR LAW ENFORCEMENT Ot R53.83 OTHER FATIGUE 01/24/2016 BAIMA, HELENE L DIRECTOR LAW ENFORCEMENT Ot E78.5 HYPERLIPIDEMIA, UNSPECIFIED 01/24/2016 BAIMA, HELENE L DIRECTOR LAW ENFORCEMENT Ot I10 ESSENTIAL (PRIMARY) HYPERTENSION 01/24/2016 BAIMA, HELENE L DIRECTOR LAW ENFORCEMENT Ot I25.10 ATHSCL HEART DISEASE OF [place] CORONARY 01/24/2016 BAIMA, HELENE L DIRECTOR LAW ENFORCEMENT Ot J84.10 PULMONARY FIBROSIS, UNSPECIFIED 01/24/2016 BAIMA, HELENE L DIRECTOR LAW ENFORCEMENT Ot R06.00 DYSPNEA, UNSPECIFIED 01/24/2016 BAIMA, HELENE L DIRECTOR LAW ENFORCEMENT Ot R53.83 OTHER FATIGUE 01/24/2016 BAIMA, HELENE L DIRECTOR LAW ENFORCEMENT Ot E78.4 OTHER HYPERLIPIDEMIA 01/24/2016 BAIMA, HELENE L DIRECTOR LAW ENFORCEMENT Ot I10 ESSENTIAL (PRIMARY) HYPERTENSION 01/24/2016 BAIMA, HELENE L DIRECTOR LAW ENFORCEMENT Ot I25.10 ATHSCL HEART DISEASE OF [place] CORONARY 01/24/2016 BAIMA, HELENE L DIRECTOR LAW ENFORCEMENT Ot I44.7 LEFT BUNDLE-BRANCH BLOCK, UNSPECIFIED 01/24/2016 BAIMA, HELENE L DIRECTOR LAW ENFORCEMENT Ot R06.09 OTHER FORMS OF DYSPNEA 01/24/2016 BAIMA, HELENE L DIRECTOR LAW ENFORCEMENT Ot R53.83 OTHER FATIGUE 01/24/2016 BAIMA, HELENE L DIRECTOR LAW ENFORCEMENT Ot E78.4 OTHER HYPERLIPIDEMIA 01/24/2016 BAIMA, HELENE L DIRECTOR LAW ENFORCEMENT Ot I10 ESSENTIAL (PRIMARY) HYPERTENSION 01/24/2016 BAIMA, HELENE L DIRECTOR LAW ENFORCEMENT Ot I25.10 ATHSCL HEART DISEASE OF [place] CORONARY 01/24/2016 BAIMA, HELENE L DIRECTOR LAW ENFORCEMENT Ot I44.7 LEFT BUNDLE-BRANCH BLOCK, UNSPECIFIED 01/24/2016 BAIMA, HELENE L DIRECTOR LAW ENFORCEMENT Ot R06.09 OTHER FORMS OF DYSPNEA 01/24/2016 BAIMA, HELENE L DIRECTOR LAW ENFORCEMENT Ot R53.83 OTHER FATIGUE 01/30/2016 GELLENDER DO, SHYLA A Ot R06.02 SHORTNESS OF BREATH 01/30/2016 GELLENDER DO, SHYLA A Ot R53.83 OTHER FATIGUE 01/31/2016 BALDEV DO, GILLIAN K Ot I10 ESSENTIAL (PRIMARY) HYPERTENSION 01/31/2016 BALDEV DO, GILLIAN K Ot R07.89 OTHER CHEST PAIN 01/31/2016 BALDEV DO, GILLIAN K Ot R53.83 OTHER FATIGUE 01/31/2016 BALDEV DO, GILLIAN K Ot Z79.82 MCC (CURRENT) USE OF ASPIRIN 01/31/2016 BALDEV DO, GILLIAN K Ot Z79.899 OTHER COTA (CURRENT) DRUG THERAPY 02/01/2016 BALDEV DO, GILLIAN K Ot I10 ESSENTIAL (PRIMARY) HYPERTENSION 02/01/2016 BALDEV DO, GILLIAN K Ot R07.89 OTHER CHEST PAIN 02/01/2016 BALDEV DO, GILLIAN K Ot R53.83 OTHER FATIGUE 02/01/2016 BALDEV DO, GILLIAN K Ot Z79.82 COTA (CURRENT) USE OF ASPIRIN 02/01/2016 BALDEV , GILLIAN K Ot Z79.899 OTHER COTA (CURRENT) DRUG THERAPY 02/05/2016 SHARDADER DO, SHYLA A Ot R06.02 SHORTNESS OF BREATH 02/05/2016 GELLENDER DO, SHYLA A Ot R53.83 OTHER FATIGUE 02/07/2016 BAIMA, HELENE L DIRECTOR LAW ENFORCEMENT Ot E78.4 OTHER HYPERLIPIDEMIA 02/07/2016 BAIMA, HELENE L DIRECTOR LAW ENFORCEMENT Ot I10 ESSENTIAL (PRIMARY) HYPERTENSION 02/07/2016 BEVERLYMALUTHERHELENE L DIRECTOR LAW ENFORCEMENT Ot I25.10 ATHSCL HEART DISEASE OF [place] CORONARY 02/07/2016 HELENE TEJEDA L DIRECTOR LAW ENFORCEMENT Ot I44.7 LEFT BUNDLE-BRANCH BLOCK, UNSPECIFIED 02/07/2016 BAIMA HELENE L DIRECTOR LAW ENFORCEMENT Ot R06.09 OTHER FORMS OF DYSPNEA 02/07/2016 BAIMA, HELENE L DIRECTOR LAW ENFORCEMENT Ot R53.83 OTHER FATIGUE 02/12/2016 BAIMA, HELENE L DIRECTOR LAW ENFORCEMENT Ot E78.5 HYPERLIPIDEMIA, UNSPECIFIED 02/12/2016 BAIMA, HELENE L DIRECTOR LAW ENFORCEMENT Ot I10 ESSENTIAL (PRIMARY) HYPERTENSION 02/12/2016 BAIMA, HELENE L DIRECTOR LAW ENFORCEMENT Ot I25.10 ATHSCL HEART DISEASE OF [place] CORONARY 02/12/2016 BAIMA, HELENE L DIRECTOR LAW ENFORCEMENT Ot J84.10 PULMONARY FIBROSIS, UNSPECIFIED 02/12/2016 BAIMA, HELENE L DIRECTOR LAW ENFORCEMENT Ot R06.00 DYSPNEA, UNSPECIFIED 02/12/2016 BAIMA, HELENE L DIRECTOR LAW ENFORCEMENT Ot R53.83 OTHER FATIGUE 02/13/2016 BAIMA, HELENE L DIRECTOR LAW ENFORCEMENT Ot E78.4 OTHER HYPERLIPIDEMIA 02/13/2016 BAIMA, HELENE L DIRECTOR LAW ENFORCEMENT Ot I10 ESSENTIAL (PRIMARY) HYPERTENSION 02/13/2016 BAIMA, HELENE L DIRECTOR LAW ENFORCEMENT Ot I25.10 ATHSCL HEART DISEASE OF [place] CORONARY 02/13/2016 BAIMA, HELENE L DIRECTOR LAW ENFORCEMENT Ot I44.7 LEFT BUNDLE-BRANCH BLOCK, UNSPECIFIED 02/13/2016 BAIMA, HELENE L DIRECTOR LAW ENFORCEMENT Ot R06.09 OTHER FORMS OF DYSPNEA 02/13/2016 BAIMA, HELENE L DIRECTOR LAW ENFORCEMENT Ot R53.83 OTHER FATIGUE 02/25/2016 GELLENDER DO, SHYLA A Ot R06.02 SHORTNESS OF BREATH 02/25/2016 GELLENDER DO, SHYLA A Ot R53.83 OTHER FATIGUE 02/25/2016 GELLENDER DO, SHYLA A Ot R06.02 SHORTNESS OF BREATH 02/25/2016 GELLENDER DO, SHYLA A Ot R53.83 OTHER FATIGUE 02/25/2016 BAIMA, HELENE L DIRECTOR LAW ENFORCEMENT Ot E78.5 HYPERLIPIDEMIA, UNSPECIFIED 02/25/2016 BAIMA, HELENE L DIRECTOR LAW ENFORCEMENT Ot I10 ESSENTIAL (PRIMARY) HYPERTENSION 02/25/2016 BAIMA, HELENE L DIRECTOR LAW ENFORCEMENT Ot I25.10 ATHSCL HEART DISEASE OF [place] CORONARY 02/25/2016 BAIMA, HELENE L DIRECTOR LAW ENFORCEMENT Ot J84.10 PULMONARY FIBROSIS, UNSPECIFIED 02/25/2016 BAIMA, HELENE L DIRECTOR LAW ENFORCEMENT Ot R06.00 DYSPNEA, UNSPECIFIED 02/25/2016 BAIMA, HELENE L DIRECTOR LAW ENFORCEMENT Ot R53.83 OTHER FATIGUE 02/25/2016 HELENE TEJEDA L DIRECTOR LAW ENFORCEMENT Ot E78.4 OTHER HYPERLIPIDEMIA 02/25/2016 NIKHIL HELENE L DIRECTOR LAW ENFORCEMENT Ot I10 ESSENTIAL (PRIMARY) HYPERTENSION 02/25/2016 LUTHER TEJEDAHER L DIRECTOR LAW ENFORCEMENT Ot I25.10 ATHSCL HEART DISEASE OF [place] CORONARY 02/25/2016 HELENE TEJEDA L DIRECTOR LAW ENFORCEMENT Ot I44.7 LEFT BUNDLE-BRANCH BLOCK, UNSPECIFIED 02/25/2016 BEVERLYHELENE LUU L DIRECTOR LAW ENFORCEMENT Ot R06.09 OTHER FORMS OF DYSPNEA 02/25/2016 NIKHIL HELENE L DIRECTOR LAW ENFORCEMENT Ot R53.83 OTHER FATIGUE 03/17/2016 FELIPE CASILLAS FAC, ALI FACP CCDS Ot I25.10 ATHSCL HEART DISEASE OF [place] CORONARY 03/17/2016 FELIPE ROBERTSC, ALI FACP CCDS Ot J43.8 OTHER EMPHYSEMA 03/17/2016 FELIPE CASILLAS FACC, ALI FACP CCDS Ot 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 03/17/2016 FELIPE CASILLAS FACC, ALI FACP CCDS Ot R06.02 SHORTNESS OF BREATH 03/17/2016 FELIPE CASILLAS FACC, ALI FACP CCDS Ot R53.83 OTHER FATIGUE 06/10/2016 Ot 599.0 URIN TRACT INFECTION NOS 08/12/2016 BEVERLYHELENE LUU L DIRECTOR LAW ENFORCEMENT Ot 272.4 HYPERLIPIDEMIA NEC/NOS 08/12/2016 BEVERLYBELL HELENE L DIRECTOR LAW ENFORCEMENT Ot 401.9 HYPERTENSION NOS 08/12/2016 LUTHER TEJEDAHER L DIRECTOR LAW ENFORCEMENT Ot 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 NOS TYPE VESSEL, NATIV 08/12/2016 BEVERLYHELENE LUU L DIRECTOR LAW ENFORCEMENT Ot 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 NEC 08/12/2016 BEVERLYBELL HELENE L DIRECTOR LAW ENFORCEMENT Ot 426.3 LEFT BB BLOCK NEC 08/26/2016 ANA LAURA FERRER DO Ot J43.8 OTHER EMPHYSEMA 08/26/2016 ANA LAURA FERRER DO Ot L93.2 OTHER LOCAL LUPUS ERYTHEMATOSUS 08/26/2016 ANA LAURA FERRER DO Ot R06.02 SHORTNESS OF BREATH 09/04/2016 SHYLA WALLACE DO Ot R05 COUGH 09/04/2016 SHYLA WALLACE DO Ot R09.89 OTH SYMPTOMS AND SIGNS INVOLVING THE CIR 09/09/2016 SHYLA WALLACE DO Ot R05 COUGH 09/09/2016 SHYLA WALLACE DO Ot R09.89 OTH SYMPTOMS AND SIGNS INVOLVING THE CIR 09/09/2016 Ot V76.12 OTH SCREEN MAMMO- MALIGN NEOPLASM OF [place] 09/09/2016 Ot 272.4 HYPERLIPIDEMIA NEC/NOS 09/09/2016 Ot 401.9 HYPERTENSION NOS 09/09/2016 Ot 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 NOS TYPE VESSEL, NATIV 09/09/2016 Ot V58.69 OTH MED,LT,CURRENT USE 09/09/2016 Ot 401.9 HYPERTENSION NOS 09/09/2016 Ot V58.69 OTH MED,LT,CURRENT USE 09/09/2016 Ot 272.4 HYPERLIPIDEMIA NEC/NOS 09/09/2016 Ot 401.9 HYPERTENSION NOS 09/09/2016 Ot 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 NOS TYPE VESSEL, NATIV 09/09/2016 Ot V58.69 OTH MED,LT,CURRENT USE 09/09/2016 MAME GIRARD DO Kelly Ot V76.12 OTH SCREEN MAMMO-MALIGN NEOPLASM OF [place] 09/09/2016 Ot 719.45 JOINT PAIN-PELVIS 09/09/2016 Ot 719.45 JOINT PAIN-PELVIS 09/09/2016 BAIMA, HELENE L DIRECTOR LAW ENFORCEMENT Ot 272.4 HYPERLIPIDEMIA NEC/NOS 09/09/2016 BAIMA, HELENE L DIRECTOR LAW ENFORCEMENT Ot 272.4 HYPERLIPIDEMIA NEC/NOS 09/09/2016 BAIMA, HELENE L DIRECTOR LAW ENFORCEMENT Ot 401.9 HYPERTENSION NOS 09/09/2016 BAIMA, HELENE L DIRECTOR LAW ENFORCEMENT Ot 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 NOS TYPE VESSEL, NATIV 09/09/2016 BAIMA, HELENE L DIRECTOR LAW ENFORCEMENT Ot 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 NEC 09/09/2016 BAIMA, HELENE L DIRECTOR LAW ENFORCEMENT Ot 426.3 LEFT BB BLOCK NEC 09/09/2016 BAIMA, HELENE L DIRECTOR LAW ENFORCEMENT Ot 272.4 HYPERLIPIDEMIA NEC/NOS 09/09/2016 BAIMA, HELENE L DIRECTOR LAW ENFORCEMENT Ot 401.9 HYPERTENSION NOS 09/09/2016 BAIMA, HELENE L DIRECTOR LAW ENFORCEMENT Ot 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 NOS TYPE VESSEL, NATIV 09/09/2016 BAIMA, HELENE L DIRECTOR LAW ENFORCEMENT Ot 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 NEC 09/09/2016 BAIMA, HELENE L DIRECTOR LAW ENFORCEMENT Ot 426.3 LEFT BB BLOCK NEC 09/09/2016 ANA LAURA FERRER DO Ot 272.4 HYPERLIPIDEMIA NEC/NOS 09/09/2016 ANA LAURA FERRER DO Ot 278.00 OBESITY, NOS 09/09/2016 ANA LAURA FERRER DO Ot 401.9 HYPERTENSION NOS 09/09/2016 ANA LAURA FERRER DO Ot 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 NOS TYPE VESSEL, NATIV 09/09/2016 ANA LAURA FERRER DO Ot 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 NEC 09/09/2016 ANA LAURA FERRER DO Ot 426.3 LEFT BB BLOCK NEC 09/09/2016 ANA LAURA FERRER DO Ot 428.0 CONGESTIVE HEART FAILURE NOS 09/09/2016 ANA LAURA FERRER DO Ot 493.90 ASTHMA, UNSPECIFIED 09/09/2016 CARISSA PEDRAZA ANA LAURA Oscar Ot 780.54 HYPERSOMNIA, UNSPECIFIED 09/09/2016 CARISSA PEDRAZA ANA LAURA Ocsar Ot 786.05 SHORTNESS OF BREATH 09/09/2016 MIKALASHYLA WIGGINS DO Ot 786.05 SHORTNESS OF BREATH 09/09/2016 SHYLA WALLACE DO Ot 786.50 CHEST PAIN NOS 09/09/2016 HELENE TEJEDA DIRECTOR LAW ENFORCEMENT Ot 272.4 HYPERLIPIDEMIA NEC/NOS 09/09/2016 HELENE TEJEDA DIRECTOR LAW ENFORCEMENT Ot 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 NOS TYPE VESSEL, NATIV 09/09/2016 HELENE TEJEDA DIRECTOR LAW ENFORCEMENT Ot V58.69 OTH MED,LT,CURRENT USE 09/09/2016 MAME GIRARD DO Ot V76.12 OTH SCREEN MAMMO-MALIGN NEOPLASM OF [place] 09/09/2016 SHYLA WALLACE DO Ot 789.01 ABDOMINAL PAIN, RIGHT UPPER QUADRANT 09/09/2016 SHYLA WALLACE DO Ot 789.01 ABDOMINAL PAIN, RIGHT UPPER QUADRANT 09/09/2016 SHYLA WALLACE DO Ot 553.3 DIAPHRAGMATIC HERNIA 09/09/2016 SHYLA WALLACE DO Ot 571.8 CHRONIC LIVER DIS NEC 09/09/2016 SHYLA WALLACE DO Ot 789.1 HEPATOMEGALY 09/09/2016 REINIER ADEN DO Ot V72.84 EXAM PRE-OPERATIVE NOS 09/09/2016 FELIPE CASILLAS FACC, ALI FACP CCDS Ot 272.4 HYPERLIPIDEMIA NEC/NOS 09/09/2016 FELIPE CASILLAS FACC, ALI FACP CCDS Ot 401.9 HYPERTENSION NOS 09/09/2016 FELIPE MD FACC, ALI FACP CCDS Ot 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 NEC 09/09/2016 FELIPE MD FACC, ALI FACP CCDS Ot 426.3 LEFT BB BLOCK NEC 09/09/2016 FELIPE MD FACC, ALI FACP CCDS Ot 786.05 SHORTNESS OF BREATH 09/09/2016 FELIPE MD FACC, ALI FACP CCDS Ot 786.59 CHEST PAIN NEC 09/09/2016 FELIPE MD FACC, ALI FACP CCDS Ot V58.69 OTH MED,LT,CURRENT USE 09/09/2016 FELIPE MD FACC, ALI FACP CCDS Ot 272.4 HYPERLIPIDEMIA NEC/NOS 09/09/2016 FELIPE MD FACC, ALI FACP CCDS Ot 397.0 TRICUSPID VALVE DISEASE 09/09/2016 FELIPE MD FACC, ALI FACP CCDS Ot 401.9 HYPERTENSION NOS 09/09/2016 FELIPE MD FACC, ALI FACP CCDS Ot 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 NEC 09/09/2016 FELIPE MD FACC, ALI FACP CCDS Ot 424.0 MITRAL VALVE DISORDER 09/09/2016 FELIPE MD FACC, ALI FACP CCDS Ot 426.3 LEFT BB BLOCK NEC 09/09/2016 FELIPE MD FACC, ALI FACP CCDS Ot 786.05 SHORTNESS OF BREATH 09/09/2016 FELIPE CASILLAS FACC, ALI FACP CCDS Ot V58.69 OTH MED,LT,CURRENT USE 09/09/2016 MOISES SAUL DIRECTOR LAW ENFORCEMENT Ot V76.12 OTH SCREEN MAMMO-MALIGN NEOPLASM OF [place] 09/09/2016 KIM ROCA MD Ot 715.31 LOC OSTEOARTH NOS-SHLDER 09/09/2016 KIM ROCA MD Ot 721.0 CERVICAL SPONDYLOSIS 09/09/2016 KIM ROCA MD Ot M19.90 UNSPECIFIED OSTEOARTHRITIS, UNSPECIFIED 09/09/2016 KIM ROCA MD Ot M47.812 SPONDYLOSIS W/O MYELOPATHY OR RADICULOPA 09/09/2016 MMAE GIRARD DO Ot N81.9 FEMALE GENITAL PROLAPSE, UNSPECIFIED 09/09/2016 MAME GIRARD DO Ot R10.2 PELVIC AND PERINEAL PAIN 09/09/2016 GELLENDER DO, SHYLA Lazcano Ot M79.604 PAIN IN RIGHT LEG 09/09/2016 GELLENDER DO, SHYLA Lazcano Ot R06.02 SHORTNESS OF BREATH 09/09/2016 GELLENDER DO, SHYLA Lazcano Ot R53.83 OTHER FATIGUE 09/09/2016 GELLENDER DO, SHYLA Lazcano Ot R06.02 SHORTNESS OF BREATH 09/09/2016 GELLENDER DO, SHYLA Lazcano Ot R53.83 OTHER FATIGUE 09/09/2016 BAIMA, HELENE L DIRECTOR LAW ENFORCEMENT Ot E78.5 HYPERLIPIDEMIA, UNSPECIFIED 09/09/2016 BAIMA, HELENE L DIRECTOR LAW ENFORCEMENT Ot I10 ESSENTIAL (PRIMARY) HYPERTENSION 09/09/2016 BAIMA, HELENE L DIRECTOR LAW ENFORCEMENT Ot I25.10 ATHSCL HEART DISEASE OF [place] CORONARY 09/09/2016 BAIMA, HELENE L DIRECTOR LAW ENFORCEMENT Ot J84.10 PULMONARY FIBROSIS, UNSPECIFIED 09/09/2016 BAIMA, HELENE L DIRECTOR LAW ENFORCEMENT Ot R06.00 DYSPNEA, UNSPECIFIED 09/09/2016 BAIMA, HELENE L DIRECTOR LAW ENFORCEMENT Ot R53.83 OTHER FATIGUE 09/09/2016 BAIMA, HELENE L DIRECTOR LAW ENFORCEMENT Ot E78.4 OTHER HYPERLIPIDEMIA 09/09/2016 BAIMA, HELENE L DIRECTOR LAW ENFORCEMENT Ot I10 ESSENTIAL (PRIMARY) HYPERTENSION 09/09/2016 BAIMA, HELENE L DIRECTOR LAW ENFORCEMENT Ot I25.10 ATHSCL HEART DISEASE OF [place] CORONARY 09/09/2016 BAIMA, HELENE L DIRECTOR LAW ENFORCEMENT Ot I44.7 LEFT BUNDLE-BRANCH BLOCK, UNSPECIFIED 09/09/2016 BAIMA, HELENE L DIRECTOR LAW ENFORCEMENT Ot R06.09 OTHER FORMS OF DYSPNEA 09/09/2016 BAIMA, HELENE L DIRECTOR LAW ENFORCEMENT Ot R53.83 OTHER FATIGUE 09/09/2016 BAIMA, HELENE L DIRECTOR LAW ENFORCEMENT Ot E78.4 OTHER HYPERLIPIDEMIA 09/09/2016 BAIMA, HELENE L DIRECTOR LAW ENFORCEMENT Ot I10 ESSENTIAL (PRIMARY) HYPERTENSION 09/09/2016 BAIMA, HELENE L DIRECTOR LAW ENFORCEMENT Ot I25.10 ATHSCL HEART DISEASE OF [place] CORONARY 09/09/2016 BAIMA, HELENE L DIRECTOR LAW ENFORCEMENT Ot I44.7 LEFT BUNDLE-BRANCH BLOCK, UNSPECIFIED 09/09/2016 BAIMA, HELENE L DIRECTOR LAW ENFORCEMENT Ot R06.09 OTHER FORMS OF DYSPNEA 09/09/2016 BAIMA, HELENE L DIRECTOR LAW ENFORCEMENT Ot R53.83 OTHER FATIGUE 09/09/2016 FELIPE CASILLAS FACC, TRISHA FACP CCDS Ot I25.10 ATHSCL HEART DISEASE OF [place] CORONARY 09/09/2016 FELIPE CASILLAS FACC, ALI FACP CCDS Ot J43.8 OTHER EMPHYSEMA 09/09/2016 FELIPE CASILLAS FACC, ALI FACP CCDS Ot 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 09/09/2016 FELIPE CASILLAS FACC, ALI FACP CCDS Ot R06.02 SHORTNESS OF BREATH 09/09/2016 FELIPE CASILLAS FACC, ALI FACP CCDS Ot R53.83 OTHER FATIGUE 09/09/2016 GELLENLINDSAY DO, SHYLA A Ot R05 COUGH 09/09/2016 GELLENDER DO, SHYLA A Ot R09.89 OTH SYMPTOMS AND SIGNS INVOLVING THE CIR 09/09/2016 ANA LAURA FERRER DO Ot J43.8 OTHER EMPHYSEMA 09/09/2016 ANA LAURA FERRER DO Ot L93.2 OTHER LOCAL LUPUS ERYTHEMATOSUS 09/09/2016 ANA LAURA FERRER DO Ot R06.02 SHORTNESS OF BREATH 09/21/2016 ANA LAURA FERRER DO Ot J43.8 OTHER EMPHYSEMA 09/21/2016 ANA LAURA FERRER DO Ot L93.2 OTHER LOCAL LUPUS ERYTHEMATOSUS 09/21/2016 ANA LAURA FERRER DO Ot R06.02 SHORTNESS OF BREATH 10/06/2016 MAME GIRARD DO Ot Z12.31 ENCNTR SCREEN MAMMOGRAM FOR MALIGNANT NE 10/06/2016 GIRARD DO MAME C Ot Z12.31 ENCNTR SCREEN MAMMOGRAM FOR MALIGNANT NE 10/06/2016 MAME GIRARD DO Ot Z12.31 ENCNTR SCREEN MAMMOGRAM FOR MALIGNANT NE 10/29/2016 GIRARD JAGDISH PEDRAZAA Kelly Ot Z12.31 ENCNTR SCREEN MAMMOGRAM FOR MALIGNANT NE 10/29/2016 VAN JONES APRN Ot J44.9 CHRONIC OBSTRUCTIVE PULMONARY DISEASE, U 10/29/2016 VAN JONES APRN Ot J45.909 UNSPECIFIED ASTHMA, UNCOMPLICATED 10/29/2016 VAN JONES APRN Ot 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 10/29/2016 VAN JONES APRN Ot R91.8 OTHER NONSPECIFIC ABNORMAL FINDING OF [place] 11/17/2016 FELIPE MD FACC, ALI FACP CCDS Ot E78.1 PURE HYPERGLYCERIDEMIA 11/17/2016 FELIPE CASILLAS FACC, ALI FACP CCDS Ot F32.9 MAJOR DEPRESSIVE DISORDER, SINGLE EPISOD 11/17/2016 FELIPE MD FACC, ALI FACP CCDS Ot I25.10 ATHSCL HEART DISEASE OF [place] CORONARY 11/17/2016 FELIPE CASILLAS FACC, ALI FACP CCDS Ot I44.7 LEFT BUNDLE-BRANCH BLOCK, UNSPECIFIED 11/17/2016 FELIPE CASILLAS FACC, ALI FACP CCDS Ot I47.1 SUPRAVENTRICULAR TACHYCARDIA 11/17/2016 FELIPE CASILLAS FACC, ALI FACP CCDS Ot J45.909 UNSPECIFIED ASTHMA, UNCOMPLICATED 11/17/2016 FELIPE CASILLAS FACC, ALI FACP CCDS Ot R06.02 SHORTNESS OF BREATH 11/17/2016 FELIPE [facility]ILLAS [facility], ALI FACP CCDS Ot Z79.899 OTHER [facility] (CURRENT) DRUG THERAPY 11/24/2016 FELIPE CASILLAS [facility], ALI FACP CCDS Ot E78.1 PURE HYPERGLYCERIDEMIA 11/24/2016 FELIPE CASILLAS [facility], ALI FACP CCDS Ot F32.9 MAJOR DEPRESSIVE DISORDER, SINGLE EPISOD 11/24/2016 FELIPE CASILLAS [facility], ALI FACP CCDS Ot I25.10 ATHSCL HEART DISEASE OF [place] CORONARY 11/24/2016 FELIPE CASILLAS [facility], ALI FACP CCDS Ot I44.7 LEFT BUNDLE-BRANCH BLOCK, UNSPECIFIED 11/24/2016 FELIPE CASILLAS [facility], ALI FACP CCDS Ot I47.1 SUPRAVENTRICULAR TACHYCARDIA 11/24/2016 FELIPE CASILLAS [facility], ALI FACP CCDS Ot J45.909 UNSPECIFIED ASTHMA, UNCOMPLICATED 11/24/2016 FELIPE CASILLAS FAC, ALI FACP CCDS Ot R06.02 SHORTNESS OF BREATH 11/24/2016 FELIPE CASILLAS [facility], ALI FACP CCDS Ot Z79.899 OTHER [place] (CURRENT) DRUG THERAPY 12/01/2016 VAN JONES APRN Ot I27.2 OTHER SECONDARY PULMONARY HYPERTENSION 12/01/2016 VAN JONES APRN Ot J44.9 CHRONIC OBSTRUCTIVE PULMONARY DISEASE, U 12/01/2016 VAN JONES APRN Ot J45.909 UNSPECIFIED ASTHMA, UNCOMPLICATED 12/01/2016 KAREN, VAN E DENTURE MODEL MAKER Ot R06.02 SHORTNESS OF BREATH 12/25/2016 VANDA JONESINE E DENTURE MODEL MAKER Ot J44.9 CHRONIC OBSTRUCTIVE PULMONARY DISEASE, U 12/25/2016 VANDA JONESINE E DENTURE MODEL MAKER Ot J45.909 UNSPECIFIED ASTHMA, UNCOMPLICATED 12/25/2016 VANDA JONESINE E DENTURE MODEL MAKER Ot 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 12/25/2016 VANDA JONESINE E DENTURE MODEL MAKER Ot R91.8 OTHER NONSPECIFIC ABNORMAL FINDING OF [place] 01/01/2017 VANDA JONESINE E DENTURE MODEL MAKER Ot I27.2 OTHER SECONDARY PULMONARY HYPERTENSION 01/01/2017 VANDA JONESINE [place] DENTURE MODEL MAKER Ot J44.9 CHRONIC OBSTRUCTIVE PULMONARY DISEASE, U 01/01/2017 VANDA JONESINE [place] DENTURE MODEL MAKER Ot J45.909 UNSPECIFIED ASTHMA, UNCOMPLICATED 01/01/2017 VANDA JONESINE [place] DENTURE MODEL MAKER Ot R06.02 SHORTNESS OF BREATH 01/09/2017 VAN JONES DENTURE MODEL MAKER Ot I27.2 OTHER SECONDARY PULMONARY HYPERTENSION 01/09/2017 VAN JONES DENTURE MODEL MAKER Ot J44.9 CHRONIC OBSTRUCTIVE PULMONARY DISEASE, U 01/09/2017 VANDA JONESINE [place] DENTURE MODEL MAKER Ot J45.909 UNSPECIFIED ASTHMA, UNCOMPLICATED 01/09/2017 VANDA JONESINE [place] DENTURE MODEL MAKER Ot R06.02 SHORTNESS OF BREATH 01/12/2017 VANDA JONESINE [place] DENTURE MODEL MAKER Ot I27.2 OTHER SECONDARY PULMONARY HYPERTENSION * 01/12/2017 VAN JONES DENTURE MODEL MAKER Ot J44.9 CHRONIC OBSTRUCTIVE PULMONARY DISEASE, U 01/12/2017 VAN JONES DENTURE MODEL MAKER Ot J45.909 UNSPECIFIED ASTHMA, UNCOMPLICATED 01/12/2017 VANDA JONESINE Verónica DENTURE MODEL MAKER Ot R06.02 SHORTNESS OF BREATH 01/13/2017 VANDA JONESINE E DENTURE MODEL MAKER Ot I27.20 PULMONARY HYPERTENSION, UNSPECIFIED 01/13/2017 VANDA JONESINE Verónica DENTURE MODEL MAKER Ot J44.9 CHRONIC OBSTRUCTIVE PULMONARY DISEASE, U 01/13/2017 VANDA JONESINE E DENTURE MODEL MAKER Ot J45.909 UNSPECIFIED ASTHMA, UNCOMPLICATED 01/13/2017 VANDA JONESINE E DENTURE MODEL MAKER Ot R06.02 SHORTNESS OF BREATH 01/15/2017 VANDA JONESINE E DENTURE MODEL MAKER Ot I27.2 OTHER SECONDARY PULMONARY HYPERTENSION 01/15/2017 KARENVAN DENTURE MODEL MAKER Ot J44.9 CHRONIC OBSTRUCTIVE PULMONARY DISEASE, U 01/15/2017 VANDA JONESINE Verónica DENTURE MODEL MAKER Ot J45.909 UNSPECIFIED ASTHMA, UNCOMPLICATED 01/15/2017 KAREN, VAN Sanches DENTURE MODEL MAKER Ot R06.02 SHORTNESS OF BREATH 01/15/2017 KAREN, VAN Verónica DENTURE MODEL MAKER Ot I27.20 PULMONARY HYPERTENSION, UNSPECIFIED 01/15/2017 KAREN, VAN Verónica DENTURE MODEL MAKER Ot J44.9 CHRONIC OBSTRUCTIVE PULMONARY DISEASE, U 01/15/2017 KARENVANDA VAZINE [place] DENTURE MODEL MAKER Ot J45.909 UNSPECIFIED ASTHMA, UNCOMPLICATED 01/15/2017 KAREN, VAN Verónica DENTURE MODEL MAKER Ot R06.02 SHORTNESS OF BREATH 03/05/2017 KAREN, VAN Verónica DENTURE MODEL MAKER Ot I27.20 PULMONARY HYPERTENSION, UNSPECIFIED 03/05/2017 KAREN, VAN Verónica DENTURE MODEL MAKER Ot J44.9 CHRONIC OBSTRUCTIVE PULMONARY DISEASE, U 03/05/2017 KAREN VAN Verónica DENTURE MODEL MAKER Ot J45.909 UNSPECIFIED ASTHMA, UNCOMPLICATED 03/05/2017 KARENVANDA VAZINE [place] DENTURE MODEL MAKER Ot R06.02 SHORTNESS OF BREATH 03/13/2017 Ot 272.4 HYPERLIPIDEMIA NEC/NOS 03/13/2017 Ot 401.9 HYPERTENSION NOS 03/13/2017 Ot 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 NOS TYPE VESSEL, NATIV 03/13/2017 Ot V58.69 OTH MED,LT,CURRENT USE 03/13/2017 MAME GIRARD DO Ot V76.12 OTH SCREEN MAMMO-MALIGN NEOPLASM OF [place] 03/13/2017 Ot 719.45 JOINT PAIN-PELVIS 03/13/2017 Ot 719.45 JOINT PAIN-PELVIS 03/13/2017 BAIMA, HELENE L DIRECTOR LAW ENFORCEMENT Ot 272.4 HYPERLIPIDEMIA NEC/NOS 03/13/2017 BAIMA, HELENE L DIRECTOR LAW ENFORCEMENT Ot 272.4 HYPERLIPIDEMIA NEC/NOS 03/13/2017 BAIMA, HELENE L DIRECTOR LAW ENFORCEMENT Ot 401.9 HYPERTENSION NOS 03/13/2017 BAIMA, HELENE L DIRECTOR LAW ENFORCEMENT Ot 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 NOS TYPE VESSEL, NATIV 03/13/2017 BAIMA, HELENE L DIRECTOR LAW ENFORCEMENT Ot 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 NEC 03/13/2017 BAIMA, HELENE L DIRECTOR LAW ENFORCEMENT Ot 426.3 LEFT BB BLOCK NEC 03/13/2017 BAIMA, HELENE L DIRECTOR LAW ENFORCEMENT Ot 272.4 HYPERLIPIDEMIA NEC/NOS 03/13/2017 BAIMA, HELENE L DIRECTOR LAW ENFORCEMENT Ot 401.9 HYPERTENSION NOS 03/13/2017 BAIMA, HELENE L DIRECTOR LAW ENFORCEMENT Ot 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 NOS TYPE VESSEL, NATIV 03/13/2017 BAIBELL, HELENE L DIRECTOR LAW ENFORCEMENT Ot 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 NEC 03/13/2017 BAIBELL, HELENE L DIRECTOR LAW ENFORCEMENT Ot 426.3 LEFT BB BLOCK NEC 03/13/2017 ANA LAURA FERRER DO Ot 272.4 HYPERLIPIDEMIA NEC/NOS 03/13/2017 ANA LAURA FERRER DO Ot 278.00 OBESITY, NOS 03/13/2017 ANA LAURA FERRER DO Ot 401.9 HYPERTENSION NOS 03/13/2017 ANA LAURA FERRER DO Ot 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 NOS TYPE VESSEL, NATIV 03/13/2017 ANA LAURA FERRER DO Ot 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 NEC 03/13/2017 ANA LAURA FERRER DO Ot 426.3 LEFT BB BLOCK NEC 03/13/2017 ANA LAURA FERRER DO Ot 428.0 CONGESTIVE HEART FAILURE NOS 03/13/2017 ANA LAURA FERRER DO Ot 493.90 ASTHMA, UNSPECIFIED 03/13/2017 ANA LAURA FERRER DO Ot 780.54 HYPERSOMNIA, UNSPECIFIED 03/13/2017 ANA LAURA FERRER DO Ot 786.05 SHORTNESS OF BREATH 03/13/2017 SHYLA WALLACE DO Ot 786.05 SHORTNESS OF BREATH 03/13/2017 SHYLA WALLACE DO Ot 786.50 CHEST PAIN NOS 03/13/2017 NIKHIL, HELENE L DIRECTOR LAW ENFORCEMENT Ot 272.4 HYPERLIPIDEMIA NEC/NOS 03/13/2017 BAIBELL, HELENE L DIRECTOR LAW ENFORCEMENT Ot 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 NOS TYPE VESSEL, NATIV 03/13/2017 BEVERLYBELL, HELENE L DIRECTOR LAW ENFORCEMENT Ot V58.69 OTH MED,LT,CURRENT USE 03/13/2017 MAME GIRARD DO Ot V76.12 OTH SCREEN MAMMO-MALIGN NEOPLASM OF [place] 03/13/2017 SHYLA WALLACE DO Ot 789.01 ABDOMINAL PAIN, RIGHT UPPER QUADRANT 03/13/2017 SHYLA WALLACE DO Ot 789.01 ABDOMINAL PAIN, RIGHT UPPER QUADRANT 03/13/2017 SHYLA WALLACE DO Ot 553.3 DIAPHRAGMATIC HERNIA 03/13/2017 SHYLA WALLACE DO Ot 571.8 CHRONIC LIVER DIS NEC 03/13/2017 SHYLA WALLACE DO Ot 789.1 HEPATOMEGALY 03/13/2017 REINIER ADEN DO Ot V72.84 EXAM PRE-OPERATIVE NOS 03/13/2017 FELIPE CASILLAS FACC, ALI FACP CCDS Ot 272.4 HYPERLIPIDEMIA NEC/NOS 03/13/2017 FELIPE CASILLAS FACC, ALI FACP CCDS Ot 401.9 HYPERTENSION NOS 03/13/2017 FELIPE CASILLAS FACC, ALI FACP CCDS Ot 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 NEC 03/13/2017 FELIPE CASILLAS FACC, ALI FACP CCDS Ot 426.3 LEFT BB BLOCK NEC 03/13/2017 FELIPE CASILLSA FACC, ALI FACP CCDS Ot 786.05 SHORTNESS OF BREATH 03/13/2017 FELIPE CASILLAS FACC, ALI FACP CCDS Ot 786.59 CHEST PAIN NEC 03/13/2017 FELIPE CASILLAS FACC, ALI FACP CCDS Ot V58.69 OTH MED,LT,CURRENT USE 03/13/2017 FELIPE CASILLAS FACC, ALI FACP CCDS Ot 272.4 HYPERLIPIDEMIA NEC/NOS 03/13/2017 FELIPE CASILLAS FACC, ALI FACP CCDS Ot 397.0 TRICUSPID VALVE DISEASE 03/13/2017 FELIPE CASILLAS FACC, ALI FACP CCDS Ot 401.9 HYPERTENSION NOS 03/13/2017 FELIPE CASILLAS FACC, ALI FACP CCDS Ot 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 NEC 03/13/2017 FELIPE CASILLAS FACC, ALI FACP CCDS Ot 424.0 MITRAL VALVE DISORDER 03/13/2017 FELIPE CASILLAS FACC, ALI FACP CCDS Ot 426.3 LEFT BB BLOCK NEC 03/13/2017 FELIPE CASILLAS FACC, ALI FACP CCDS Ot 786.05 SHORTNESS OF BREATH 03/13/2017 FELIPE CASILLAS FACC, ALI FACP CCDS Ot V58.69 OTH MED,LT,CURRENT USE 03/13/2017 MOISES SAUL Ot V76.12 OTH SCREEN MAMMO-MALIGN NEOPLASM OF [place] 03/13/2017 KIM ROCA MD Ot 715.31 LOC OSTEOARTH NOS-SHLDER 03/13/2017 CHANELLE CASILLAS, KIM Ruff Ot 721.0 CERVICAL SPONDYLOSIS 03/13/2017 KIM ROCA MD Ot M19.90 UNSPECIFIED OSTEOARTHRITIS, UNSPECIFIED 03/13/2017 KIM ROCA MD Ot M47.812 SPONDYLOSIS W/O MYELOPATHY OR RADICULOPA 03/13/2017 SHAJI PEDRAZA MAME C Ot N81.9 FEMALE GENITAL PROLAPSE, UNSPECIFIED 03/13/2017 SHAJI PEDRAZA MAME C Ot R10.2 PELVIC AND PERINEAL PAIN 03/13/2017 GELLENDER DO, SHYLA Lazcano Ot M79.604 PAIN IN RIGHT LEG 03/13/2017 GELLENDER DO, SHYLA Lazcano Ot R06.02 SHORTNESS OF BREATH 03/13/2017 GELLENDER DO, SHYLA Lazcano Ot R53.83 OTHER FATIGUE 03/13/2017 GELLENDER DO, SHYLA A Ot R06.02 SHORTNESS OF BREATH 03/13/2017 GELLENDER DO, SHYLA A Ot R53.83 OTHER FATIGUE 03/13/2017 BAIMA, HELENE L DIRECTOR LAW ENFORCEMENT Ot E78.5 HYPERLIPIDEMIA, UNSPECIFIED 03/13/2017 BAIMA, HELENE L DIRECTOR LAW ENFORCEMENT Ot I10 ESSENTIAL (PRIMARY) HYPERTENSION 03/13/2017 BAIMA, HELENE L DIRECTOR LAW ENFORCEMENT Ot I25.10 ATHSCL HEART DISEASE OF [place] CORONARY 03/13/2017 BAIMA, HELENE L DIRECTOR LAW ENFORCEMENT Ot J84.10 PULMONARY FIBROSIS, UNSPECIFIED 03/13/2017 BAIMA, HELENE L DIRECTOR LAW ENFORCEMENT Ot R06.00 DYSPNEA, UNSPECIFIED 03/13/2017 BAIMA, HELENE L DIRECTOR LAW ENFORCEMENT Ot R53.83 OTHER FATIGUE 03/13/2017 BAIMA, HELENE L DIRECTOR LAW ENFORCEMENT Ot E78.4 OTHER HYPERLIPIDEMIA 03/13/2017 BAIMA, HELENE L DIRECTOR LAW ENFORCEMENT Ot I10 ESSENTIAL (PRIMARY) HYPERTENSION 03/13/2017 BAIMA, HELENE L DIRECTOR LAW ENFORCEMENT Ot I25.10 ATHSCL HEART DISEASE OF [place] CORONARY 03/13/2017 BAIMA, HELENE L DIRECTOR LAW ENFORCEMENT Ot I44.7 LEFT BUNDLE-BRANCH BLOCK, UNSPECIFIED 03/13/2017 BAIMA, HELENE L DIRECTOR LAW ENFORCEMENT Ot R06.09 OTHER FORMS OF DYSPNEA 03/13/2017 BAIMA, HELENE L DIRECTOR LAW ENFORCEMENT Ot R53.83 OTHER FATIGUE 03/13/2017 BAIMA, HELENE L DIRECTOR LAW ENFORCEMENT Ot E78.4 OTHER HYPERLIPIDEMIA 03/13/2017 HELENE TEJEDA DIRECTOR LAW ENFORCEMENT Ot I10 ESSENTIAL (PRIMARY) HYPERTENSION 03/13/2017 HELENE TEJEDA DIRECTOR LAW ENFORCEMENT Ot I25.10 ATHSCL HEART DISEASE OF [place] CORONARY 03/13/2017 HELENE TEJEDA DIRECTOR LAW ENFORCEMENT Ot I44.7 LEFT BUNDLE-BRANCH BLOCK, UNSPECIFIED 03/13/2017 HELENE TEJEDA DIRECTOR LAW ENFORCEMENT Ot R06.09 OTHER FORMS OF DYSPNEA 03/13/2017 BEVERLYHELENE LUU DIRECTOR LAW ENFORCEMENT Ot R53.83 OTHER FATIGUE 03/13/2017 FELIPE ROBERTS, ALI FACP CCDS Ot I25.10 ATHSCL HEART DISEASE OF [place] CORONARY 03/13/2017 FELIPE CASILLAS FACC, ALI FACP CCDS Ot J43.8 OTHER EMPHYSEMA 03/13/2017 FELIPE CASILLAS FACC, ALI FACP CCDS Ot 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 03/13/2017 FELIPE CASILLAS FACC, ALI FACP CCDS Ot R06.02 SHORTNESS OF BREATH 03/13/2017 FELIPE CASILLAS FACC, ALI FACP CCDS Ot R53.83 OTHER FATIGUE 03/13/2017 SHYLA WALLACE DO Ot R05 COUGH 03/13/2017 SHYLA WALLACE DO Ot R09.89 OTH SYMPTOMS AND SIGNS INVOLVING THE CIR 03/13/2017 ANA LAURA FERRER DO Ot J43.8 OTHER EMPHYSEMA 03/13/2017 ANA LAURA FERRER DO Ot L93.2 OTHER LOCAL LUPUS ERYTHEMATOSUS 03/13/2017 ANA LAURA FERRER DO Ot R06.02 SHORTNESS OF BREATH 03/13/2017 MAME GIRARD DO Ot Z12.31 ENCNTR SCREEN MAMMOGRAM FOR MALIGNANT NE 03/13/2017 VAN JONES APRN Ot J44.9 CHRONIC OBSTRUCTIVE PULMONARY DISEASE, U 03/13/2017 VAN JONES APRN Ot J45.909 UNSPECIFIED ASTHMA, UNCOMPLICATED 03/13/2017 VAN JONES APRN Ot 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 03/13/2017 VAN JONES APRN Ot R91.8 OTHER NONSPECIFIC ABNORMAL FINDING OF [place] 03/13/2017 VAN JONES APRN Ot I27.20 PULMONARY HYPERTENSION, UNSPECIFIED 03/13/2017 VAN JONES APRN Ot J44.9 CHRONIC OBSTRUCTIVE PULMONARY DISEASE, U 03/13/2017 VAN JONES DENTURE MODEL MAKER Ot J45.909 UNSPECIFIED ASTHMA, UNCOMPLICATED 03/13/2017 VAN JONES APRN Ot R06.02 SHORTNESS OF BREATH 03/16/[address] [facility] [place] Ot M17.11 UNILATERAL PRIMARY OSTEOARTHRITIS, RIGHT 04/07/2017 CHARLY [facility] Ot M17.11 UNILATERAL PRIMARY OSTEOARTHRITIS, RIGHT 04/12/2017 VAN JONES APRN Ot I27.20 PULMONARY HYPERTENSION, UNSPECIFIED 04/12/2017 VAN JONES APRN Ot J44.9 CHRONIC OBSTRUCTIVE PULMONARY DISEASE, U 04/12/2017 VAN JONES APRN Ot J45.909 UNSPECIFIED ASTHMA, UNCOMPLICATED 04/12/2017 VAN JONES APRN Ot R06.02 SHORTNESS OF BREATH 04/14/2017 CHARLY [facility] Ot M17.11 UNILATERAL PRIMARY OSTEOARTHRITIS, RIGHT 04/28/2017 Ot 272.4 04/28/2017 Ot 401.9 04/28/2017 Ot 414.00 04/28/2017 Ot V58.69 04/28/2017 Ot V58.83 04/28/2017 Ot 780.79 04/28/2017 Ot 786.09 04/28/2017 Ot 401.9 04/28/2017 Ot 780.79 04/28/2017 Ot 786.09 04/28/2017 Ot V58.69 04/28/2017 Ot V58.83 04/28/2017 Ot 272.4 04/28/2017 Ot 401.9 04/28/2017 Ot 414.00 04/28/2017 Ot V58.69 04/28/2017 Ot V58.83 04/28/2017 Ot 729.5 04/28/2017 Ot 789.09 04/28/2017 Ot V16.3 04/28/2017 Ot V76.11 04/28/2017 Ot 414.00 04/28/2017 Ot 272.0 04/28/2017 Ot 285.9 04/28/2017 Ot 311 04/28/2017 Ot 414.01 04/28/2017 Ot 428.0 04/28/2017 Ot 493.90 04/28/2017 Ot 618.01 04/28/2017 Ot 625.6 04/28/2017 Ot V16.41 04/28/2017 Ot V72.81 04/28/2017 Ot V72.83 04/28/2017 Ot 272.4 04/28/2017 Ot 414.00 04/28/2017 Ot V58.69 04/28/2017 Ot 272.4 04/28/2017 Ot 414.00 04/28/2017 Ot V58.69 04/28/2017 Ot 272.4 04/28/2017 Ot 401.9 04/28/2017 Ot 414.00 04/28/2017 Ot V58.69 04/28/2017 Ot V16.3 04/28/2017 Ot V76.11 04/28/2017 Ot 401.9 04/28/2017 Ot 786.09 04/28/2017 Ot 272.4 04/28/2017 Ot 401.9 04/28/2017 Ot 414.00 04/28/2017 Ot V58.69 04/28/2017 Ot 285.9 04/28/2017 Ot 618.04 04/28/2017 Ot 618.6 04/28/2017 Ot V72.83 04/28/2017 Ot V74.8 04/28/2017 Ot 272.4 04/28/2017 Ot 414.00 04/28/2017 Ot V58.69 04/28/2017 Ot 272.4 04/28/2017 Ot 401.9 04/28/2017 Ot 414.00 04/28/2017 Ot V58.69 04/28/2017 Ot V76.12 04/28/2017 Ot 272.4 04/28/2017 Ot 401.9 04/28/2017 Ot 414.00 04/28/2017 Ot V58.69 04/28/2017 Ot 272.4 HYPERLIPIDEMIA NEC/NOS 04/28/2017 Ot 414.01 CORONARY ATHEROSCLEROSIS OF [place] CORON 04/28/2017 Ot V58.69 OTH MED,LT,CURRENT USE 04/28/2017 Ot 414.01 CORONARY ATHEROSCLEROSIS OF [place] CORON 04/28/2017 Ot 786.09 RESPIRATORY ABNORM NEC 04/28/2017 Ot 397.0 TRICUSPID VALVE DISEASE 04/28/2017 Ot 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 NOS TYPE VESSEL, NATIV 04/28/2017 Ot 424.0 MITRAL VALVE DISORDER 04/28/2017 Ot 786.09 RESPIRATORY ABNORM NEC 04/28/2017 Ot 401.9 HYPERTENSION NOS 04/28/2017 Ot 428.0 CONGESTIVE HEART FAILURE NOS 04/28/2017 Ot 618.6 VAGINAL ENTEROCELE 04/28/2017 Ot 791.9 ABN URINE FINDINGS NEC 04/28/2017 Ot V58.69 OTH MED,LT,CURRENT USE 04/28/2017 Ot V72.63 PRE-PROCEDURAL LABORATORY EXAMINATION 04/28/2017 Ot V72.81 [id number] CARDIOVASCULAR 04/28/2017 Ot V74.8 SCREEN-BACTERIAL DIS NEC 04/28/2017 Ot V76.12 OTH SCREEN MAMMO- MALIGN NEOPLASM OF [place] 04/28/2017 Ot 272.4 HYPERLIPIDEMIA NEC/NOS 04/28/2017 Ot 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 NOS TYPE VESSEL, NATIV 04/28/2017 Ot V58.69 OTH MED,LT,CURRENT USE 04/28/2017 Ot 272.4 HYPERLIPIDEMIA NEC/NOS 04/28/2017 Ot 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 NOS TYPE VESSEL, NATIV 04/28/2017 Ot V58.69 OTH MED,LT,CURRENT USE 04/28/2017 Ot V58.83 ENCOUNTER FOR THERAPEUTIC DRUG MONITORIN 04/28/2017 Ot 272.4 HYPERLIPIDEMIA NEC/NOS 04/28/2017 Ot 401.9 HYPERTENSION NOS 04/28/2017 Ot 414.01 CORONARY ATHEROSCLEROSIS OF [place] CORON 04/28/2017 Ot V58.69 OTH MED,LT,CURRENT USE 04/28/2017 Ot V76.12 OTH SCREEN MAMMO- MALIGN NEOPLASM OF [place] 04/28/2017 Ot 727.51 POPLITEAL SYNOVIAL CYST 04/28/2017 Ot 729.5 PAIN IN LIMB 04/28/2017 Ot 429.3 CARDIOMEGALY 04/28/2017 Ot 715.36 LOC OSTEOARTH NOS-L/LEG 04/28/2017 Ot 791.9 ABN URINE FINDINGS NEC 04/28/2017 Ot V57.1 PHYSICAL THERAPY NEC 04/28/2017 Ot V57.21 ENCOUNTER FOR OCCUPATIONAL THERAPY 04/28/2017 Ot V58.69 OTH MED,LT,CURRENT USE 04/28/2017 Ot V72.63 PRE-PROCEDURAL LABORATORY EXAMINATION 04/28/2017 Ot V72.81 [id number] CARDIOVASCULAR 04/28/2017 Ot V58.61 ANTICOAGULANTS,LT,CURRENT USE 04/28/2017 Ot V58.83 ENCOUNTER FOR THERAPEUTIC DRUG MONITORIN 04/28/2017 Ot V58.61 ANTICOAGULANTS,LT,CURRENT USE 04/28/2017 Ot V58.83 ENCOUNTER FOR THERAPEUTIC DRUG MONITORIN 04/28/2017 Ot 599.0 URIN TRACT INFECTION NOS 04/28/2017 Ot V58.61 ANTICOAGULANTS,LT,CURRENT USE 04/28/2017 Ot V58.83 ENCOUNTER FOR THERAPEUTIC DRUG MONITORIN 04/28/2017 Ot 272.4 HYPERLIPIDEMIA NEC/NOS 04/28/2017 Ot V58.69 OTH MED,LT,CURRENT USE 04/28/2017 Ot V76.12 OTH SCREEN MAMMO- MALIGN NEOPLASM OF [place] 04/28/2017 Ot 272.4 HYPERLIPIDEMIA NEC/NOS 04/28/2017 Ot 401.9 HYPERTENSION NOS 04/28/2017 Ot 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 NOS TYPE VESSEL, NATIV 04/28/2017 Ot V58.69 OTH MED,LT,CURRENT USE 04/28/2017 Ot 401.9 HYPERTENSION NOS 04/28/2017 Ot V58.69 OTH MED,LT,CURRENT USE 04/28/2017 Ot 272.4 HYPERLIPIDEMIA NEC/NOS 04/28/2017 Ot 401.9 HYPERTENSION NOS 04/28/2017 Ot 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 NOS TYPE VESSEL, NATIV 04/28/2017 Ot V58.69 OTH MED,LT,CURRENT USE 04/28/2017 MAME GIRARD DO Ot V76.12 OTH SCREEN MAMMO-MALIGN NEOPLASM OF [place] 04/28/2017 Ot 719.45 JOINT PAIN-PELVIS 04/28/2017 Ot 719.45 JOINT PAIN-PELVIS 04/28/2017 BAIMA, HELENE L DIRECTOR LAW ENFORCEMENT Ot 272.4 HYPERLIPIDEMIA NEC/NOS 04/28/2017 BAIMA, HELENE L DIRECTOR LAW ENFORCEMENT Ot 272.4 HYPERLIPIDEMIA NEC/NOS 04/28/2017 BAIMA, HELENE L DIRECTOR LAW ENFORCEMENT Ot 401.9 HYPERTENSION NOS 04/28/2017 BAIMA, HELENE L DIRECTOR LAW ENFORCEMENT Ot 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 NOS TYPE VESSEL, NATIV 04/28/2017 BAIMA, HELENE L DIRECTOR LAW ENFORCEMENT Ot 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 NEC 04/28/2017 BAIMA, HELENE L DIRECTOR LAW ENFORCEMENT Ot 426.3 LEFT BB BLOCK NEC 04/28/2017 BAIMA, HELENE L DIRECTOR LAW ENFORCEMENT Ot 272.4 HYPERLIPIDEMIA NEC/NOS 04/28/2017 BAIMA, HELENE L DIRECTOR LAW ENFORCEMENT Ot 401.9 HYPERTENSION NOS 04/28/2017 BAIHELENE LUU L DIRECTOR LAW ENFORCEMENT Ot 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 NOS TYPE VESSEL, NATIV 04/28/2017 LUTHER TEJEDAHER L DIRECTOR LAW ENFORCEMENT Ot 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 NEC 04/28/2017 LUTHER TEJEDAHER L DIRECTOR LAW ENFORCEMENT Ot 426.3 LEFT BB BLOCK NEC 04/28/2017 CARISSA DO ANA LAURA M Ot 272.4 HYPERLIPIDEMIA NEC/NOS 04/28/2017 CARISSA DO ANA LAURA M Ot 278.00 OBESITY, NOS 04/28/2017 CARISSA DO, ANA LAURA M Ot 401.9 HYPERTENSION NOS 04/28/2017 CARISSA DO, ANA LAURA M Ot 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 NOS TYPE VESSEL, NATIV 04/28/2017 CARISSA DO ANA LAURA M Ot 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 NEC 04/28/2017 CARISSA DO ANA LAURA M Ot 426.3 LEFT BB BLOCK NEC 04/28/2017 CARISSA DO ANA LAURA M Ot 428.0 CONGESTIVE HEART FAILURE NOS 04/28/2017 CARISSA DO ANA LAURA M Ot 493.90 ASTHMA, UNSPECIFIED 04/28/2017 CARISSA DO ANA LAURA M Ot 780.54 HYPERSOMNIA, UNSPECIFIED 04/28/2017 CARISSA DO ANA LAURA M Ot 786.05 SHORTNESS OF BREATH 04/28/2017 HELENE TEJEDA L DIRECTOR LAW ENFORCEMENT Ot 272.4 HYPERLIPIDEMIA NEC/NOS 04/28/2017 LUTHER TEJEDAHER L DIRECTOR LAW ENFORCEMENT Ot 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 NOS TYPE VESSEL, NATIV 04/28/2017 HELENE TEJEDA L DIRECTOR LAW ENFORCEMENT Ot V58.69 OTH MED,LT,CURRENT USE 04/28/2017 SHYLA WALLACE DO Ot 786.05 SHORTNESS OF BREATH 04/28/2017 SHYLA WALLACE DO Ot 786.50 CHEST PAIN NOS 04/28/2017 GIRARD MAME PEDRAZA C Ot V76.12 OTH SCREEN MAMMO-MALIGN NEOPLASM OF [place] 04/28/2017 SHYLA WALLACE DO Ot 789.01 ABDOMINAL PAIN, RIGHT UPPER QUADRANT 04/28/2017 SHYLA WALLACE DO Ot 789.01 ABDOMINAL PAIN, RIGHT UPPER QUADRANT 04/28/2017 SHYLA WALLACE DO Ot 553.3 DIAPHRAGMATIC HERNIA 04/28/2017 SHYLA WALLACE DO Ot 571.8 CHRONIC LIVER DIS NEC 04/28/2017 HSYLA WALLACE DO Ot 789.1 HEPATOMEGALY 04/28/2017 REINIER ADEN DO Ot V72.84 EXAM PRE-OPERATIVE NOS 04/28/2017 FELIPE CASILLAS FACC, ALI FACP CCDS Ot 272.4 HYPERLIPIDEMIA NEC/NOS 04/28/2017 FELIPE MD FACC, ALI FACP CCDS Ot 401.9 HYPERTENSION NOS 04/28/2017 FELIPE CASILLAS FACC, ALI FACP CCDS Ot 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 NEC 04/28/2017 FELIPE CASILLAS FACC, ALI FACP CCDS Ot 426.3 LEFT BB BLOCK NEC 04/28/2017 FELIPE MD FACC, ALI FACP CCDS Ot 786.05 SHORTNESS OF BREATH 04/28/2017 FELIPE CASILLAS FACC, ALI FACP CCDS Ot 786.59 CHEST PAIN NEC 04/28/2017 FELIPE CASILLAS FACC, ALI FACP CCDS Ot V58.69 OTH MED,LT,CURRENT USE 04/28/2017 FELIPE CASILLAS FACC, ALI FACP CCDS Ot 272.4 HYPERLIPIDEMIA NEC/NOS 04/28/2017 FELIPE CASILLAS FACC, ALI FACP CCDS Ot 397.0 TRICUSPID VALVE DISEASE 04/28/2017 FELIPE CASILLAS FACC, ALI FACP CCDS Ot 401.9 HYPERTENSION NOS 04/28/2017 FELIPE CASILLAS FACC, ALI FACP CCDS Ot 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 NEC 04/28/2017 FELIPE CASILLAS FACC, ALI FACP CCDS Ot 424.0 MITRAL VALVE DISORDER 04/28/2017 FELIPE CASILLAS FACC, ALI FACP CCDS Ot 426.3 LEFT BB BLOCK NEC 04/28/2017 FELIPE CASILLAS FACC, ALI FACP CCDS Ot 786.05 SHORTNESS OF BREATH 04/28/2017 FELIPE CASILLAS FACC, ALI FACP CCDS Ot V58.69 OTH MED,LT,CURRENT USE 04/28/2017 MOISES SAUL Ot V76.12 OTH SCREEN MAMMO-MALIGN NEOPLASM OF [place] 04/28/2017 KIM ROCA MD Ot 715.31 LOC OSTEOARTH NOS-SHLDER 04/28/2017 KIM ROCA MD Ot 721.0 CERVICAL SPONDYLOSIS 04/28/2017 KIM ROCA MD Ot M19.90 UNSPECIFIED OSTEOARTHRITIS, UNSPECIFIED 04/28/2017 CHANELLE CASILLAS, KIM Ruff Ot M47.812 SPONDYLOSIS W/O MYELOPATHY OR RADICULOPA 04/28/2017 MAME GIRARD DO Kelly Ot N81.9 FEMALE GENITAL PROLAPSE, UNSPECIFIED 04/28/2017 JAGDISH GIRARD DOJaleesa Mendoza Ot R10.2 PELVIC AND PERINEAL PAIN 04/28/2017 RODRIGO DO, SHYLA Lazcano Ot M79.604 PAIN IN RIGHT LEG 04/28/2017 GELLENDER DO, SHYLA Lazcano Ot R06.02 SHORTNESS OF BREATH 04/28/2017 GELLENDER DO, SHYLA Lazcano Ot R53.83 OTHER FATIGUE 04/28/2017 GELLENDER DO, SHYLA Lazcano Ot R06.02 SHORTNESS OF BREATH 04/28/2017 GELLENDER DO, SHYLA Lazcano Ot R53.83 OTHER FATIGUE 04/28/2017 BAIMA, HELENE L DIRECTOR LAW ENFORCEMENT Ot E78.5 HYPERLIPIDEMIA, UNSPECIFIED 04/28/2017 BAIMA, HELENE L DIRECTOR LAW ENFORCEMENT Ot I10 ESSENTIAL (PRIMARY) HYPERTENSION 04/28/2017 BAIMA, HELENE L DIRECTOR LAW ENFORCEMENT Ot I25.10 ATHSCL HEART DISEASE OF [place] CORONARY 04/28/2017 BAIMA, HELENE L DIRECTOR LAW ENFORCEMENT Ot J84.10 PULMONARY FIBROSIS, UNSPECIFIED 04/28/2017 BAIMA, HELENE L DIRECTOR LAW ENFORCEMENT Ot R06.00 DYSPNEA, UNSPECIFIED 04/28/2017 BAIMA, HELENE L DIRECTOR LAW ENFORCEMENT Ot R53.83 OTHER FATIGUE 04/28/2017 BAIMA, HELENE L DIRECTOR LAW ENFORCEMENT Ot E78.4 OTHER HYPERLIPIDEMIA 04/28/2017 BAIMA, HELENE L DIRECTOR LAW ENFORCEMENT Ot I10 ESSENTIAL (PRIMARY) HYPERTENSION 04/28/2017 BAIMA, HELENE L DIRECTOR LAW ENFORCEMENT Ot I25.10 ATHSCL HEART DISEASE OF [place] CORONARY 04/28/2017 BAIMA, HELENE L DIRECTOR LAW ENFORCEMENT Ot I44.7 LEFT BUNDLE-BRANCH BLOCK, UNSPECIFIED 04/28/2017 BAIMA, HELENE L DIRECTOR LAW ENFORCEMENT Ot R06.09 OTHER FORMS OF DYSPNEA 04/28/2017 BAIMA, HELENE L DIRECTOR LAW ENFORCEMENT Ot R53.83 OTHER FATIGUE 04/28/2017 BAIMA, HELENE L DIRECTOR LAW ENFORCEMENT Ot E78.4 OTHER HYPERLIPIDEMIA 04/28/2017 BAIMA, HELENE L DIRECTOR LAW ENFORCEMENT Ot I10 ESSENTIAL (PRIMARY) HYPERTENSION 04/28/2017 BAIMA, HELENE L DIRECTOR LAW ENFORCEMENT Ot I25.10 ATHSCL HEART DISEASE OF [place] CORONARY 04/28/2017 BEVERLYHELENE LUU DIRECTOR LAW ENFORCEMENT Ot I44.7 LEFT BUNDLE-BRANCH BLOCK, UNSPECIFIED 04/28/2017 HELENE TEJEDA DIRECTOR LAW ENFORCEMENT Ot R06.09 OTHER FORMS OF DYSPNEA 04/28/2017 HELENE TEJEDA DIRECTOR LAW ENFORCEMENT Ot R53.83 OTHER FATIGUE 04/28/2017 FELIPE CASILLAS FAC, ALI FACP CCDS Ot I25.10 ATHSCL HEART DISEASE OF [place] CORONARY 04/28/2017 FELIPE CASILLAS FAC, ALI FACP CCDS Ot J43.8 OTHER EMPHYSEMA 04/28/2017 FELIPE CASILLAS FAC, ALI FACP CCDS Ot 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 04/28/2017 FELIPE ROBERTS, ALI FACP CCDS Ot R06.02 SHORTNESS OF BREATH 04/28/2017 FELIPE CASILLAS FAC, ALI FACP CCDS Ot R53.83 OTHER FATIGUE 04/28/2017 SHYLA WALLACE DO Ot R05 COUGH 04/28/2017 SHYLA WALLACE DO Ot R09.89 OT SYMPTOMS AND SIGNS INVOLVING THE CIR 04/28/2017 ANA LAURA FERRER DO Ot J43.8 OTHER EMPHYSEMA 04/28/2017 ANA LAURA FERRER DO Ot L93.2 OTHER LOCAL LUPUS ERYTHEMATOSUS 04/28/2017 ANA LAURA FERRER DO Ot R06.02 SHORTNESS OF BREATH 04/28/2017 MAME GIRARD DO Ot Z12.31 ENCNTR SCREEN MAMMOGRAM FOR MALIGNANT NE 04/28/2017 VAN JONES APRN Ot J44.9 CHRONIC OBSTRUCTIVE PULMONARY DISEASE, U 04/28/2017 VAN JONES DENTURE MODEL MAKER Ot J45.909 UNSPECIFIED ASTHMA, UNCOMPLICATED 04/28/2017 VAN JONES DENTURE MODEL MAKER Ot 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 04/28/2017 VAN JONES DENTURE MODEL MAKER Ot R91.8 OTHER NONSPECIFIC ABNORMAL FINDING OF [place] 04/28/2017 DEJA PARKS-C Ot M17.11 UNILATERAL PRIMARY OSTEOARTHRITIS, RIGHT 04/28/2017 VAN JONES DENTURE MODEL MAKER Ot I27.20 PULMONARY HYPERTENSION, UNSPECIFIED 04/28/2017 VAN JONES DENTURE MODEL MAKER Ot J44.9 CHRONIC OBSTRUCTIVE PULMONARY DISEASE, U 04/28/2017 VAN JONES APRN Ot J45.909 UNSPECIFIED ASTHMA, UNCOMPLICATED 04/28/2017 VAN JONES APRN Ot R06.02 SHORTNESS OF BREATH 04/29/2017 DEJA PARKS CHRISTC Ot M17.11 UNILATERAL PRIMARY OSTEOARTHRITIS, RIGHT 04/29/2017 Ot 272.4 HYPERLIPIDEMIA NEC/NOS 04/29/2017 Ot 401.9 HYPERTENSION NOS 04/29/2017 Ot 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 NOS TYPE VESSEL, NATIV 04/29/2017 Ot V58.69 OTH MED,LT,CURRENT USE 04/29/2017 SHAJI PEDRAZA MAME Kelly Ot V76.12 OTH SCREEN MAMMO-MALIGN NEOPLASM OF [place] 04/29/2017 Ot 719.45 JOINT PAIN-PELVIS 04/29/2017 Ot 719.45 JOINT PAIN-PELVIS 04/29/2017 BAIMA, HELENE L DIRECTOR LAW ENFORCEMENT Ot 272.4 HYPERLIPIDEMIA NEC/NOS 04/29/2017 BAIMA, HELENE L DIRECTOR LAW ENFORCEMENT Ot 272.4 HYPERLIPIDEMIA NEC/NOS 04/29/2017 BAIMA, HELENE L DIRECTOR LAW ENFORCEMENT Ot 401.9 HYPERTENSION NOS 04/29/2017 BAIMA, HELENE L DIRECTOR LAW ENFORCEMENT Ot 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 NOS TYPE VESSEL, NATIV 04/29/2017 BAIMA, HELENE L DIRECTOR LAW ENFORCEMENT Ot 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 NEC 04/29/2017 BAIMA, HELENE L DIRECTOR LAW ENFORCEMENT Ot 426.3 LEFT BB BLOCK NEC 04/29/2017 BAIMA, HELENE L DIRECTOR LAW ENFORCEMENT Ot 272.4 HYPERLIPIDEMIA NEC/NOS 04/29/2017 BAIMA, HELENE L DIRECTOR LAW ENFORCEMENT Ot 401.9 HYPERTENSION NOS 04/29/2017 BAIMA, HELENE L DIRECTOR LAW ENFORCEMENT Ot 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 NOS TYPE VESSEL, NATIV 04/29/2017 BAIMA, HELENE L DIRECTOR LAW ENFORCEMENT Ot 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 NEC 04/29/2017 BAIMA, HELENE L DIRECTOR LAW ENFORCEMENT Ot 426.3 LEFT BB BLOCK NEC 04/29/2017 ANA LAURA FERRER DO Ot 272.4 HYPERLIPIDEMIA NEC/NOS 04/29/2017 ANA LAURA FERRER DO Ot 278.00 OBESITY, NOS 04/29/2017 ANA LAURA FERRER DO Ot 401.9 HYPERTENSION NOS 04/29/2017 ANA LAURA FERRER DO Ot 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 NOS TYPE VESSEL, NATIV 04/29/2017 ANA LAURA FERRER DO Ot 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 NEC 04/29/2017 ANA LAURA FERRER DO Ot 426.3 LEFT BB BLOCK NEC 04/29/2017 ANA LAURA FERRER DO Ot 428.0 CONGESTIVE HEART FAILURE NOS 04/29/2017 ANA LAURA FERRER DO Ot 493.90 ASTHMA, UNSPECIFIED 04/29/2017 ANA LAURA FERRER DO Ot 780.54 HYPERSOMNIA, UNSPECIFIED 04/29/2017 ANA LAURA FERRER DO Ot 786.05 SHORTNESS OF BREATH 04/29/2017 MIKALALENSHYLA MONTOYA DO Ot 786.05 SHORTNESS OF BREATH 04/29/2017 RODRIGO PEDRAZASHYLA Ot 786.50 CHEST PAIN NOS 04/29/2017 HELENE TEJEDA DIRECTOR LAW ENFORCEMENT Ot 272.4 HYPERLIPIDEMIA NEC/NOS 04/29/2017 HELENE TEJEDA DIRECTOR LAW ENFORCEMENT Ot 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 NOS TYPE VESSEL, NATIV 04/29/2017 HELENE TEJEDA DIRECTOR LAW ENFORCEMENT Ot V58.69 OTH MED,LT,CURRENT USE 04/29/2017 MAME GIRARD DO Kelly Ot V76.12 OTH SCREEN MAMMO-MALIGN NEOPLASM OF [place] 04/29/2017 RODRIGO PEDRAZASHYLA Ot 789.01 ABDOMINAL PAIN, RIGHT UPPER QUADRANT 04/29/2017 RODRIGO PEDRAZASHYLA Ot 789.01 ABDOMINAL PAIN, RIGHT UPPER QUADRANT 04/29/2017 RODRIGO PEDRAZASHYLA Ot 553.3 DIAPHRAGMATIC HERNIA 04/29/2017 MIKALARADHAMESLINDSAY SHYLA PEDRAZA Ot 571.8 CHRONIC LIVER DIS NEC 04/29/2017 RODRIGO PEDRAZASHYLA Ot 789.1 HEPATOMEGALY 04/29/2017 REINIER ADEN DO Ot V72.84 EXAM PRE-OPERATIVE NOS 04/29/2017 FELIPE CASILLAS FACC, ALI FACP CCDS Ot 272.4 HYPERLIPIDEMIA NEC/NOS 04/29/2017 FELIPE CASILLAS FACC, ALI FACP CCDS Ot 401.9 HYPERTENSION NOS 04/29/2017 FELIPE ROBERTSC, ALI FACP CCDS Ot 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 NEC 04/29/2017 FELIEP ROBERTSC, ALI FACP CCDS Ot 426.3 LEFT BB BLOCK NEC 04/29/2017 FELIPE CASILLAS FACC, ALI FACP CCDS Ot 786.05 SHORTNESS OF BREATH 04/29/2017 FELIPE CASILLAS FACC, ALI FACP CCDS Ot 786.59 CHEST PAIN NEC 04/29/2017 FELIPE CASILLAS FACC, ALI FACP CCDS Ot V58.69 OTH MED,LT,CURRENT USE 04/29/2017 FELIPE CASILLAS FACC, ALI FACP CCDS Ot 272.4 HYPERLIPIDEMIA NEC/NOS 04/29/2017 FELIPE MD FACC, ALI FACP CCDS Ot 397.0 TRICUSPID VALVE DISEASE 04/29/2017 FELIPE MD FACC, ALI FACP CCDS Ot 401.9 HYPERTENSION NOS 04/29/2017 FELIPE MD FACC, ALI FACP CCDS Ot 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 NEC 04/29/2017 FELIPE MD FACC, ALI FACP CCDS Ot 424.0 MITRAL VALVE DISORDER 04/29/2017 FELIPE MD FACC, ALI FACP CCDS Ot 426.3 LEFT BB BLOCK NEC 04/29/2017 FELIPE CASILLAS FACC, ALI FACP CCDS Ot 786.05 SHORTNESS OF BREATH 04/29/2017 FELIPE CASILLAS FACC, ALI FACP CCDS Ot V58.69 OTH MED,LT,CURRENT USE 04/29/2017 MOISES SAUL DIRECTOR LAW ENFORCEMENT Ot V76.12 OTH SCREEN MAMMO-MALIGN NEOPLASM OF [place] 04/29/2017 KIM ROCA MD Ot 715.31 LOC OSTEOARTH NOS-SHLDER 04/29/2017 KIM ROCA MD Ot 721.0 CERVICAL SPONDYLOSIS 04/29/2017 KIM ROCA MD Ot M19.90 UNSPECIFIED OSTEOARTHRITIS, UNSPECIFIED 04/29/2017 KIM ROCA MD Ot M47.812 SPONDYLOSIS W/O MYELOPATHY OR RADICULOPA 04/29/2017 MAME GIRARD DO Ot N81.9 FEMALE GENITAL PROLAPSE, UNSPECIFIED 04/29/2017 MAME GIRARD DO Ot R10.2 PELVIC AND PERINEAL PAIN 04/29/2017 SHYLA WALLACE DO Ot M79.604 PAIN IN RIGHT LEG 04/29/2017 SHYLA WALLACE DO Ot R06.02 SHORTNESS OF BREATH 04/29/2017 SHYLA WALLACE DO Ot R53.83 OTHER FATIGUE 04/29/2017 GELLENDER DO, SHYLA A Ot R06.02 SHORTNESS OF BREATH 04/29/2017 RODRIGO DO, SHYLA A Ot R53.83 OTHER FATIGUE 04/29/2017 BAIMA, HELENE L DIRECTOR LAW ENFORCEMENT Ot E78.5 HYPERLIPIDEMIA, UNSPECIFIED 04/29/2017 BAIMA, HELENE L DIRECTOR LAW ENFORCEMENT Ot I10 ESSENTIAL (PRIMARY) HYPERTENSION 04/29/2017 BAIMA, HELENE L DIRECTOR LAW ENFORCEMENT Ot I25.10 ATHSCL HEART DISEASE OF [place] CORONARY 04/29/2017 BAIMA, HELENE L DIRECTOR LAW ENFORCEMENT Ot J84.10 PULMONARY FIBROSIS, UNSPECIFIED 04/29/2017 BAIMA, HELENE L DIRECTOR LAW ENFORCEMENT Ot R06.00 DYSPNEA, UNSPECIFIED 04/29/2017 BAIMA, HELENE L DIRECTOR LAW ENFORCEMENT Ot R53.83 OTHER FATIGUE 04/29/2017 BAIMA, HELENE L DIRECTOR LAW ENFORCEMENT Ot E78.4 OTHER HYPERLIPIDEMIA 04/29/2017 BAIMA, HELENE L DIRECTOR LAW ENFORCEMENT Ot I10 ESSENTIAL (PRIMARY) HYPERTENSION 04/29/2017 BAIMA, HELENE L DIRECTOR LAW ENFORCEMENT Ot I25.10 ATHSCL HEART DISEASE OF [place] CORONARY 04/29/2017 BAIMA, HELENE L DIRECTOR LAW ENFORCEMENT Ot I44.7 LEFT BUNDLE-BRANCH BLOCK, UNSPECIFIED 04/29/2017 BAIMA, HELENE L DIRECTOR LAW ENFORCEMENT Ot R06.09 OTHER FORMS OF DYSPNEA 04/29/2017 BAIMA, HELENE L DIRECTOR LAW ENFORCEMENT Ot R53.83 OTHER FATIGUE 04/29/2017 BAIMA, HELENE L DIRECTOR LAW ENFORCEMENT Ot E78.4 OTHER HYPERLIPIDEMIA 04/29/2017 BAIMA, HELENE L DIRECTOR LAW ENFORCEMENT Ot I10 ESSENTIAL (PRIMARY) HYPERTENSION 04/29/2017 BAIMA, HELENE L DIRECTOR LAW ENFORCEMENT Ot I25.10 ATHSCL HEART DISEASE OF [place] CORONARY 04/29/2017 BAIMA, HELENE L DIRECTOR LAW ENFORCEMENT Ot I44.7 LEFT BUNDLE-BRANCH BLOCK, UNSPECIFIED 04/29/2017 BAIMA, HELENE L DIRECTOR LAW ENFORCEMENT Ot R06.09 OTHER FORMS OF DYSPNEA 04/29/2017 BAIMA, HELENE L DIRECTOR LAW ENFORCEMENT Ot R53.83 OTHER FATIGUE 04/29/2017 FELIPE CASILLAS FACC, ALI FACP CCDS Ot I25.10 ATHSCL HEART DISEASE OF [place] CORONARY 04/29/2017 FELIPE CASILLAS FACC, ALI FACP CCDS Ot J43.8 OTHER EMPHYSEMA 04/29/2017 FELIPE CASILLAS FACC, ALI FACP CCDS Ot 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 04/29/2017 FELIPE CASILLAS [facility] CCDS Ot R06.02 SHORTNESS OF BREATH 04/29/2017 FELIPE CASILLAS [facility] CCDS Ot R53.83 OTHER FATIGUE 04/29/2017 GELLENDER DO, SHYLA A Ot R05 COUGH 04/29/2017 GELLENDER DO, SHYLA A Ot R09.89 OT SYMPTOMS AND SIGNS INVOLVING THE CIR 04/29/2017 ANA LAURA FERRER DO Ot J43.8 OTHER EMPHYSEMA 04/29/2017 ANA LAURA FERRER DO Ot L93.2 OTHER LOCAL LUPUS ERYTHEMATOSUS 04/29/2017 ANA LAURA FERRER DO Ot R06.02 SHORTNESS OF BREATH 04/29/2017 MAME GIRARD DO Ot Z12.31 ENCNTR SCREEN MAMMOGRAM FOR MALIGNANT NE 04/29/2017 VAN JONES APRN Ot J44.9 CHRONIC OBSTRUCTIVE PULMONARY DISEASE, U 04/29/2017 VAN JONES APRN Ot J45.909 UNSPECIFIED ASTHMA, UNCOMPLICATED 04/29/2017 VAN JONES DENTURE MODEL MAKER Ot 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 04/29/2017 VAN JONES DENTURE MODEL MAKER Ot R91.8 OTHER NONSPECIFIC ABNORMAL FINDING OF [place] 04/29/2017 CHARLY DEJA DRAGGER-C Ot M17.11 UNILATERAL PRIMARY OSTEOARTHRITIS, RIGHT 04/29/2017 VAN JONES DENTURE MODEL MAKER Ot I27.20 PULMONARY HYPERTENSION, UNSPECIFIED 04/29/2017 VAN JONES APRN Ot J44.9 CHRONIC OBSTRUCTIVE PULMONARY DISEASE, U 04/29/2017 VAN JONES APRN Ot J45.909 UNSPECIFIED ASTHMA, UNCOMPLICATED 04/29/2017 VAN JONES APRN Ot R06.02 SHORTNESS OF BREATH 09/21/2017 VAN JONES DENTURE MODEL MAKER Ot J44.9 CHRONIC OBSTRUCTIVE PULMONARY DISEASE, U 09/21/2017 VAN JONES DENTURE MODEL MAKER Ot 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 09/21/2017 VAN JONES DENTURE MODEL MAKER Ot R91.8 OTHER NONSPECIFIC ABNORMAL FINDING OF [place] 09/21/2017 VAN JONES DENTURE MODEL MAKER Ot J44.9 CHRONIC OBSTRUCTIVE PULMONARY DISEASE, U 09/21/2017 VAN JONES DENTURE MODEL MAKER Ot 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 09/21/2017 VAN JONES DENTURE MODEL MAKER Ot R91.8 OTHER NONSPECIFIC ABNORMAL FINDING OF [place] 09/23/2017 GIRARD DO, MAME C Ot Z12.31 ENCNTR SCREEN MAMMOGRAM FOR MALIGNANT NE 09/23/2017 VAN JONES DENTURE MODEL MAKER Ot J44.9 CHRONIC OBSTRUCTIVE PULMONARY DISEASE, U 09/23/2017 VAN JONES DENTURE MODEL MAKER Ot 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 09/23/2017 VAN JONES DENTURE MODEL MAKER Ot R91.8 OTHER NONSPECIFIC ABNORMAL FINDING OF [place] 09/23/2017 GIRARD DO, MAME C Ot Z12.31 ENCNTR SCREEN MAMMOGRAM FOR MALIGNANT NE 09/23/2017 GIRARD DO, MAME C Ot Z12.31 ENCNTR SCREEN MAMMOGRAM FOR MALIGNANT NE 09/24/2017 GIRARD DO, MAME C Ot Z12.31 ENCNTR SCREEN MAMMOGRAM FOR MALIGNANT NE 10/12/2017 VAN JONES DENTURE MODEL MAKER Ot J44.9 CHRONIC OBSTRUCTIVE PULMONARY DISEASE, U 10/12/2017 VAN JONES DENTURE MODEL MAKER Ot 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 10/12/2017 VAN JONES DENTURE MODEL MAKER Ot R91.8 OTHER NONSPECIFIC ABNORMAL FINDING OF [place] 10/14/2017 GIRARD DO, MAME C Ot Z12.31 ENCNTR SCREEN MAMMOGRAM FOR MALIGNANT NE 12/14/2017 VAN JONES DENTURE MODEL MAKER Ot J44.9 CHRONIC OBSTRUCTIVE PULMONARY DISEASE, U 12/14/2017 VAN JONES DENTURE MODEL MAKER Ot 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 12/14/2017 VAN JONES DENTURE MODEL MAKER Ot R91.8 OTHER NONSPECIFIC ABNORMAL FINDING OF [place] 01/31/2018 BEVERLYMA, HELENE L DIRECTOR LAW ENFORCEMENT Ot 272.4 HYPERLIPIDEMIA NEC/NOS 01/31/2018 BAIMA, HELENE L DIRECTOR LAW ENFORCEMENT Ot 272.4 HYPERLIPIDEMIA NEC/NOS 01/31/2018 BEVERLYMA, HELENE L DIRECTOR LAW ENFORCEMENT Ot 401.9 HYPERTENSION NOS 01/31/2018 BEVERLYMA, HELENE L DIRECTOR LAW ENFORCEMENT Ot 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 NOS TYPE VESSEL, NATIV 01/31/2018 BEVERLYMA HELENE L DIRECTOR LAW ENFORCEMENT Ot 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 NEC 01/31/2018 NIKHIL HELENE L DIRECTOR LAW ENFORCEMENT Ot 426.3 LEFT BB BLOCK NEC 01/31/2018 BAIMA, HELENE L DIRECTOR LAW ENFORCEMENT Ot 272.4 HYPERLIPIDEMIA NEC/NOS 01/31/2018 BAIMA, HELENE L DIRECTOR LAW ENFORCEMENT Ot 401.9 HYPERTENSION NOS 01/31/2018 BAIMA, HELENE L DIRECTOR LAW ENFORCEMENT Ot 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 NOS TYPE VESSEL, NATIV 01/31/2018 BAIMA, HELENE L DIRECTOR LAW ENFORCEMENT Ot 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 NEC 01/31/2018 BAIBELL, HELENE L DIRECTOR LAW ENFORCEMENT Ot 426.3 LEFT BB BLOCK NEC 01/31/2018 ANA LAURA FERRER DO M Ot 272.4 HYPERLIPIDEMIA NEC/NOS 01/31/2018 ANA LAURA FERRER DO Ot 278.00 OBESITY, NOS 01/31/2018 ANA LAURA FERRER DO Ot 401.9 HYPERTENSION NOS 01/31/2018 ANA LAURA FERRER DO Ot 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 NOS TYPE VESSEL, NATIV 01/31/2018 SHELDON FERRER DOSON M Ot 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 NEC 01/31/2018 ANA LAURA FERRER DO Ot 426.3 LEFT BB BLOCK NEC 01/31/2018 ANA LAURA FERRER DO Ot 428.0 CONGESTIVE HEART FAILURE NOS 01/31/2018 ANA LAURA FERRER DO Ot 493.90 ASTHMA, UNSPECIFIED 01/31/2018 ANA LAURA FERRER DO Ot 780.54 HYPERSOMNIA, UNSPECIFIED 01/31/2018 ANA LAURA FERRER DO Ot 786.05 SHORTNESS OF BREATH 01/31/2018 SHYLA WALLACE DO Ot 786.05 SHORTNESS OF BREATH 01/31/2018 SHYLA WALLACE DO Ot 786.50 CHEST PAIN NOS 01/31/2018 BEVERLYMA, HELENE L DIRECTOR LAW ENFORCEMENT Ot 272.4 HYPERLIPIDEMIA NEC/NOS 01/31/2018 BAIMA, HELENE L DIRECTOR LAW ENFORCEMENT Ot 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 NOS TYPE VESSEL, NATIV 01/31/2018 BEVERLYMA, HELENE L DIRECTOR LAW ENFORCEMENT Ot V58.69 OTH MED,LT,CURRENT USE 01/31/2018 MAME GIRARD DO Ot V76.12 OTH SCREEN MAMMO-MALIGN NEOPLASM OF [place] 01/31/2018 SHYLA WALLACE DO Ot 789.01 ABDOMINAL PAIN, RIGHT UPPER QUADRANT 01/31/2018 SHYLA WALLACE DO Ot 789.01 ABDOMINAL PAIN, RIGHT UPPER QUADRANT 01/31/2018 SHYLA WALLACE DO Ot 553.3 DIAPHRAGMATIC HERNIA 01/31/2018 SHYLA WALLACE DO Ot 571.8 CHRONIC LIVER DIS NEC 01/31/2018 SHYLA WALLACE DO Ot 789.1 HEPATOMEGALY 01/31/2018 REINIER ADEN DO Ot V72.84 EXAM PRE-OPERATIVE NOS 01/31/2018 FELIPE CASILLAS FACC, ALI FACP CCDS Ot 272.4 HYPERLIPIDEMIA NEC/NOS 01/31/2018 FELIPE CASILLAS FACC, ALI FACP CCDS Ot 401.9 HYPERTENSION NOS 01/31/2018 FELIPE MD FACC, ALI FACP CCDS Ot 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 NEC 01/31/2018 FELIPE CASILLAS FACC, ALI FACP CCDS Ot 426.3 LEFT BB BLOCK NEC 01/31/2018 FELIPE CASILLAS FACC, ALI FACP CCDS Ot 786.05 SHORTNESS OF BREATH 01/31/2018 FELIPE CASILLAS FACC, ALI FACP CCDS Ot 786.59 CHEST PAIN NEC 01/31/2018 FELIPE CASILLAS FACC, ALI FACP CCDS Ot V58.69 OTH MED,LT,CURRENT USE 01/31/2018 FELIPE CASILLAS FACC, ALI FACP CCDS Ot 272.4 HYPERLIPIDEMIA NEC/NOS 01/31/2018 FELIPE CASILLAS FACC, ALI FACP CCDS Ot 397.0 TRICUSPID VALVE DISEASE 01/31/2018 FELIPE CASILLAS FACC, ALI FACP CCDS Ot 401.9 HYPERTENSION NOS 01/31/2018 FELIPE CASILLAS FACC, ALI FACP CCDS Ot 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 NEC 01/31/2018 FELIPE CASILLAS FACC, ALI FACP CCDS Ot 424.0 MITRAL VALVE DISORDER 01/31/2018 FELIPE CASILLAS FACC, ALI FACP CCDS Ot 426.3 LEFT BB BLOCK NEC 01/31/2018 FELIPE MD FACC, ALI FACP CCDS Ot 786.05 SHORTNESS OF BREATH 01/31/2018 FELIPE CASILLAS FACC, ALI FACP CCDS Ot V58.69 OTH MED,LT,CURRENT USE 01/31/2018 MOISES SAUL Ot V76.12 OTH SCREEN MAMMO-MALIGN NEOPLASM OF [place] 01/31/2018 KIM ROCA MD Ot 715.31 LOC OSTEOARTH NOS-SHLDER 01/31/2018 CHANELLE CASILLAS, KIM Ruff Ot 721.0 CERVICAL SPONDYLOSIS 01/31/2018 CHANELLE CASILLAS, KIM Ruff Ot M19.90 UNSPECIFIED OSTEOARTHRITIS, UNSPECIFIED 01/31/2018 CHANELLE CASILLAS, KIM Ruff Ot M47.812 SPONDYLOSIS W/O MYELOPATHY OR RADICULOPA 01/31/2018 GIRARD MAME Ot N81.9 FEMALE GENITAL PROLAPSE, UNSPECIFIED 01/31/2018 GIRARD DOMAME Ot R10.2 PELVIC AND PERINEAL PAIN 01/31/2018 GELLENDER DO, SHYLA Jaleesa Ot M79.604 PAIN IN RIGHT LEG 01/31/2018 GELLENDER DO, SHYLA A Ot R06.02 SHORTNESS OF BREATH 01/31/2018 GELLENDER DO, SHYLA Lazcano Ot R53.83 OTHER FATIGUE 01/31/2018 GELLENDER DO, SHYLA A Ot R06.02 SHORTNESS OF BREATH 01/31/2018 GELLENDER DO, SHYLA A Ot R53.83 OTHER FATIGUE 01/31/2018 BAIMA, HELENE L DIRECTOR LAW ENFORCEMENT Ot E78.5 HYPERLIPIDEMIA, UNSPECIFIED 01/31/2018 BAIMA, HELENE L DIRECTOR LAW ENFORCEMENT Ot I10 ESSENTIAL (PRIMARY) HYPERTENSION 01/31/2018 BAIMA, HELENE L DIRECTOR LAW ENFORCEMENT Ot I25.10 ATHSCL HEART DISEASE OF [place] CORONARY 01/31/2018 BAIMA, HELENE L DIRECTOR LAW ENFORCEMENT Ot J84.10 PULMONARY FIBROSIS, UNSPECIFIED 01/31/2018 BAIMA, HELENE L DIRECTOR LAW ENFORCEMENT Ot R06.00 DYSPNEA, UNSPECIFIED 01/31/2018 BAIMA, HELENE L DIRECTOR LAW ENFORCEMENT Ot R53.83 OTHER FATIGUE 01/31/2018 BAIMA, HELENE L DIRECTOR LAW ENFORCEMENT Ot E78.4 OTHER HYPERLIPIDEMIA 01/31/2018 BAIMA, HELENE L DIRECTOR LAW ENFORCEMENT Ot I10 ESSENTIAL (PRIMARY) HYPERTENSION 01/31/2018 BAIMA, HELENE L DIRECTOR LAW ENFORCEMENT Ot I25.10 ATHSCL HEART DISEASE OF [place] CORONARY 01/31/2018 BAIMA, HELENE L DIRECTOR LAW ENFORCEMENT Ot I44.7 LEFT BUNDLE-BRANCH BLOCK, UNSPECIFIED 01/31/2018 BAIMA, HELENE L DIRECTOR LAW ENFORCEMENT Ot R06.09 OTHER FORMS OF DYSPNEA 01/31/2018 BAIMA, HELENE L DIRECTOR LAW ENFORCEMENT Ot R53.83 OTHER FATIGUE 01/31/2018 BAIMA, HELENE L DIRECTOR LAW ENFORCEMENT Ot E78.4 OTHER HYPERLIPIDEMIA 01/31/2018 HELENE TEJEDA DIRECTOR LAW ENFORCEMENT Ot I10 ESSENTIAL (PRIMARY) HYPERTENSION 01/31/2018 HELENE TEJEDA DIRECTOR LAW ENFORCEMENT Ot I25.10 ATHSCL HEART DISEASE OF [place] CORONARY 01/31/2018 HELENE TEJEDA DIRECTOR LAW ENFORCEMENT Ot I44.7 LEFT BUNDLE-BRANCH BLOCK, UNSPECIFIED 01/31/2018 HELENE TEJEDA DIRECTOR LAW ENFORCEMENT Ot R06.09 OTHER FORMS OF DYSPNEA 01/31/2018 BEVERLYHELENE LUU DIRECTOR LAW ENFORCEMENT Ot R53.83 OTHER FATIGUE 01/31/2018 FELIPE CASILLAS FACC, ALI FACP CCDS Ot I25.10 ATHSCL HEART DISEASE OF [place] CORONARY 01/31/2018 FELIPE CASILLAS FACC, ALI FACP CCDS Ot J43.8 OTHER EMPHYSEMA 01/31/2018 FELIPE CASILLAS FACKelly, ALI FACP CCDS Ot 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 01/31/2018 FELIPE CASILLAS FACC, ALI FACP CCDS Ot R06.02 SHORTNESS OF BREATH 01/31/2018 FELIPE CASILLAS FACC, ALI FACP CCDS Ot R53.83 OTHER FATIGUE 01/31/2018 SHYLA WALLACE DO A Ot R05 COUGH 01/31/2018 GELLENCLINTON, SHYLA A Ot R09.89 OTH SYMPTOMS AND SIGNS INVOLVING THE CIR 01/31/2018 ANA LAURA FERRER DO Ot J43.8 OTHER EMPHYSEMA 01/31/2018 ANA LAURA FERRER DO Ot L93.2 OTHER LOCAL LUPUS ERYTHEMATOSUS 01/31/2018 ANA LAURA FERRER DO Ot R06.02 SHORTNESS OF BREATH 01/31/2018 MAME GIRARD DO Ot Z12.31 ENCNTR SCREEN MAMMOGRAM FOR MALIGNANT NE 01/31/2018 VAN JONES APRN Ot J44.9 CHRONIC OBSTRUCTIVE PULMONARY DISEASE, U 01/31/2018 VAN JONES APRN Ot J45.909 UNSPECIFIED ASTHMA, UNCOMPLICATED 01/31/2018 VAN JONES DENTURE MODEL MAKER Ot 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 01/31/2018 VAN JONES APRN Ot R91.8 OTHER NONSPECIFIC ABNORMAL FINDING OF [place] 01/31/2018 VAN JONES APRN Ot J44.9 CHRONIC OBSTRUCTIVE PULMONARY DISEASE, U 01/31/2018 VAN JONES DENTURE MODEL MAKER Ot 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 01/31/2018 VAN JONES DENTURE MODEL MAKER Ot R91.8 OTHER NONSPECIFIC ABNORMAL FINDING OF [place] 01/31/2018 DEJA PARKS DRAGGER-C Ot M17.11 UNILATERAL PRIMARY OSTEOARTHRITIS, RIGHT 01/31/2018 VAN JONES DENTURE MODEL MAKER Ot I27.20 PULMONARY HYPERTENSION, UNSPECIFIED 01/31/2018 VAN JONES DENTURE MODEL MAKER Ot J44.9 CHRONIC OBSTRUCTIVE PULMONARY DISEASE, U 01/31/2018 VAN JONES DENTURE MODEL MAKER Ot J45.909 UNSPECIFIED ASTHMA, UNCOMPLICATED 01/31/2018 VAN JONES DENTURE MODEL MAKER Ot R06.02 SHORTNESS OF BREATH 01/31/2018 MAME GIRARD DO Ot Z12.31 ENCNTR SCREEN MAMMOGRAM FOR MALIGNANT NE 02/02/2018 GELLENDER DO, SHYLA Lazcano Ot N28.9 DISORDER OF KIDNEY AND URETER, UNSPECIFI 02/03/2018 GELLENDER DO, SHYLA Lazcano Ot K59.00 CONSTIPATION, UNSPECIFIED 02/03/2018 GELLENDER DO, SHYLA A Ot K63.89 OTHER SPECIFIED DISEASES OF INTESTINE 02/24/2018 GELLENDER DO, SHYLA A Ot K59.00 CONSTIPATION, UNSPECIFIED 02/24/2018 GELLENDER DO, SHYLA A Ot K63.89 OTHER SPECIFIED DISEASES OF INTESTINE 02/28/2018 GELLENDER DO, SHYLA A Ot K59.00 CONSTIPATION, UNSPECIFIED 02/28/2018 GELLENDER DO, SHYLA A Ot K63.89 OTHER SPECIFIED DISEASES OF INTESTINE 07/26/2018 FELIPE CASILLAS FAC, ALI FACP CCDS Ot E78.5 HYPERLIPIDEMIA, UNSPECIFIED 07/26/2018 FELIPE CASILLAS FAC, ALI FACP CCDS Ot I10 ESSENTIAL (PRIMARY) HYPERTENSION 07/26/2018 FELIPE CASILLAS FACC, ALI FACP CCDS Ot R06.02 SHORTNESS OF BREATH 08/16/2018 FELIPE CASILLAS FACC, ALI FACP CCDS Ot E78.5 HYPERLIPIDEMIA, UNSPECIFIED 08/16/2018 FELIPE CASILLAS FACC, ALI FACP CCDS Ot I10 ESSENTIAL (PRIMARY) HYPERTENSION 08/16/2018 FELIPE CASILLAS FACC, ALI FACP CCDS Ot R06.02 SHORTNESS OF BREATH 09/16/2018 MAME GIRARD DO Ot Z12.31 ENCNTR SCREEN MAMMOGRAM FOR MALIGNANT NE 09/27/2018 GIRARDMAME Terry DO Ot Z12.31 ENCNTR SCREEN MAMMOGRAM FOR MALIGNANT NE 10/05/2018 REINIER ADEN DO Ot Z01.818 ENCOUNTER FOR OTHER PREPROCEDURAL EXAMIN 10/05/2018 VAN JONES DENTURE MODEL MAKER Ot I27.20 PULMONARY HYPERTENSION, UNSPECIFIED 10/05/2018 VAN JONES DENTURE MODEL MAKER Ot J44.9 CHRONIC OBSTRUCTIVE PULMONARY DISEASE, U 10/05/2018 VAN JONES DENTURE MODEL MAKER Ot J45.909 UNSPECIFIED ASTHMA, UNCOMPLICATED 10/05/2018 VAN JONES DENTURE MODEL MAKER Ot R06.02 SHORTNESS OF BREATH 10/05/2018 REINIER ADEN DO Ot Z01.818 ENCOUNTER FOR OTHER PREPROCEDURAL EXAMIN 10/05/2018 [place] REINIER PEDRAZA Ot Z01.818 ENCOUNTER FOR OTHER PREPROCEDURAL EXAMIN 10/05/2018 [place] REINIER PEDRAZA Ot Z01.818 ENCOUNTER FOR OTHER PREPROCEDURAL EXAMIN 10/05/2018 ADEN REINIER PEDRAZA Ot Z01.818 ENCOUNTER FOR OTHER PREPROCEDURAL EXAMIN 10/07/2018 SHYLA WALLACE DO Ot 786.05 SHORTNESS OF BREATH 10/07/2018 MIKALASHYLA WIGGINS DO Ot 786.50 CHEST PAIN NOS 10/07/2018 HELENE TEJEDA DIRECTOR LAW ENFORCEMENT Ot 272.4 HYPERLIPIDEMIA NEC/NOS 10/07/2018 HELENE TEJEDA DIRECTOR LAW ENFORCEMENT Ot 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 NOS TYPE VESSEL, NATIV 10/07/2018 HELENE TEJEDA DIRECTOR LAW ENFORCEMENT Ot V58.69 OTH MED,LT,CURRENT USE 10/07/2018 SHAJI PEDRAZAMAME Ot V76.12 OTH SCREEN MAMMO-MALIGN NEOPLASM OF [place] 10/07/2018 RODRIGO SHYLA PEDRAZA Ot 789.01 ABDOMINAL PAIN, RIGHT UPPER QUADRANT 10/07/2018 RODRIGO SHYLA PEDRAZA Ot 789.01 ABDOMINAL PAIN, RIGHT UPPER QUADRANT 10/07/2018 RODRIGO SHYLA PEDRAZA Ot 553.3 DIAPHRAGMATIC HERNIA 10/07/2018 MIKALARADHAMESLINDSAY SHYLA PEDRAZA Ot 571.8 CHRONIC LIVER DIS NEC 10/07/2018 SHYLA WALLACE DO Ot 789.1 HEPATOMEGALY 10/07/2018 REINIER ADEN DO Ot V72.84 EXAM PRE-OPERATIVE NOS 10/07/2018 FELIPE CASILLAS FACC, ALI FACP CCDS Ot 272.4 HYPERLIPIDEMIA NEC/NOS 10/07/2018 FELIPE CASILLAS FACC, ALI FACP CCDS Ot 401.9 HYPERTENSION NOS 10/07/2018 FELIPE CASILLAS FACC, ALI FACP CCDS Ot 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 NEC 10/07/2018 FELIPE CASILLAS FACC, ALI FACP CCDS Ot 426.3 LEFT BB BLOCK NEC 10/07/2018 FELIPE CASILLAS FACC, ALI FACP CCDS Ot 786.05 SHORTNESS OF BREATH 10/07/2018 FELIPE CASILLAS FACC, ALI FACP CCDS Ot 786.59 CHEST PAIN NEC 10/07/2018 FELIPE CASILLAS FACC, ALI FACP CCDS Ot V58.69 OTH MED,LT,CURRENT USE 10/07/2018 FELIPE CASILLAS FACC, ALI FACP CCDS Ot 272.4 HYPERLIPIDEMIA NEC/NOS 10/07/2018 FELIPE CASILLAS FACC, ALI FACP CCDS Ot 397.0 TRICUSPID VALVE DISEASE 10/07/2018 FELIPE CASILLAS FACC, ALI FACP CCDS Ot 401.9 HYPERTENSION NOS 10/07/2018 FELIPE CASILLAS FACC, ALI FACP CCDS Ot 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 NEC 10/07/2018 FELIPE CASILLAS FACC, ALI FACP CCDS Ot 424.0 MITRAL VALVE DISORDER 10/07/2018 FELIPE CASILLAS FACC, ALI FACP CCDS Ot 426.3 LEFT BB BLOCK NEC 10/07/2018 FELIPE CASILLAS FACC, ALI FACP CCDS Ot 786.05 SHORTNESS OF BREATH 10/07/2018 FELIPE CASILLAS FACC, ALI FACP CCDS Ot V58.69 OTH MED,LT,CURRENT USE 10/07/2018 MOISES SAUL Ot V76.12 OTH SCREEN MAMMO-MALIGN NEOPLASM OF [place] 10/07/2018 KIM ROCA MD Ot 715.31 LOC OSTEOARTH NOS-SHLDER 10/07/2018 KIM ROCA MD Ot 721.0 CERVICAL SPONDYLOSIS 10/07/2018 KIM ROCA MD Ot M19.90 UNSPECIFIED OSTEOARTHRITIS, UNSPECIFIED 10/07/2018 KIM ROCA MD Ot M47.812 SPONDYLOSIS W/O MYELOPATHY OR RADICULOPA 10/07/2018 SHAJI PEDRAZAMAME Ot N81.9 FEMALE GENITAL PROLAPSE, UNSPECIFIED 10/07/2018 SHAJI PEDRAZAMAME Ot R10.2 PELVIC AND PERINEAL PAIN 10/07/2018 [facility], SHYLA Lazcano Ot M79.604 PAIN IN RIGHT LEG 10/07/2018 GELLENDER DO, SHYLA Lazcano Ot R06.02 SHORTNESS OF BREATH 10/07/2018 GELLENDER DO, SHYLA Lazcano Ot R53.83 OTHER FATIGUE 10/07/2018 GELLENDER DO, SHYLA Lazcano Ot R06.02 SHORTNESS OF BREATH 10/07/2018 GELLENDER DO, SHYLA Lazcano Ot R53.83 OTHER FATIGUE 10/07/2018 BAIMA, HELENE L DIRECTOR LAW ENFORCEMENT Ot E78.5 HYPERLIPIDEMIA, UNSPECIFIED 10/07/2018 BAIMA, HELENE L DIRECTOR LAW ENFORCEMENT Ot I10 ESSENTIAL (PRIMARY) HYPERTENSION 10/07/2018 BAIMA, HELENE L DIRECTOR LAW ENFORCEMENT Ot I25.10 ATHSCL HEART DISEASE OF [place] CORONARY 10/07/2018 BAIMA, HELENE L DIRECTOR LAW ENFORCEMENT Ot J84.10 PULMONARY FIBROSIS, UNSPECIFIED 10/07/2018 BAIMA, HELENE L DIRECTOR LAW ENFORCEMENT Ot R06.00 DYSPNEA, UNSPECIFIED 10/07/2018 BAIMA, HELENE L DIRECTOR LAW ENFORCEMENT Ot R53.83 OTHER FATIGUE 10/07/2018 BAIMA, HELENE L DIRECTOR LAW ENFORCEMENT Ot E78.4 OTHER HYPERLIPIDEMIA 10/07/2018 BAIMA, HELENE L DIRECTOR LAW ENFORCEMENT Ot I10 ESSENTIAL (PRIMARY) HYPERTENSION 10/07/2018 BAIMA, HELENE L DIRECTOR LAW ENFORCEMENT Ot I25.10 ATHSCL HEART DISEASE OF [place] CORONARY 10/07/2018 BAIMA, HELENE L DIRECTOR LAW ENFORCEMENT Ot I44.7 LEFT BUNDLE-BRANCH BLOCK, UNSPECIFIED 10/07/2018 BAIMA, HELENE L DIRECTOR LAW ENFORCEMENT Ot R06.09 OTHER FORMS OF DYSPNEA 10/07/2018 BAIMA, HELENE L DIRECTOR LAW ENFORCEMENT Ot R53.83 OTHER FATIGUE 10/07/2018 BAIMA, HELENE L DIRECTOR LAW ENFORCEMENT Ot E78.4 OTHER HYPERLIPIDEMIA 10/07/2018 BAIMA, HELENE L DIRECTOR LAW ENFORCEMENT Ot I10 ESSENTIAL (PRIMARY) HYPERTENSION 10/07/2018 BAIMA, HELENE L DIRECTOR LAW ENFORCEMENT Ot I25.10 ATHSCL HEART DISEASE OF [place] CORONARY 10/07/2018 BEVERLYHELENE LUU DIRECTOR LAW ENFORCEMENT Ot I44.7 LEFT BUNDLE-BRANCH BLOCK, UNSPECIFIED 10/07/2018 HELENE TEJEDA DIRECTOR LAW ENFORCEMENT Ot R06.09 OTHER FORMS OF DYSPNEA 10/07/2018 BEVERLYHELENE LUU DIRECTOR LAW ENFORCEMENT Ot R53.83 OTHER FATIGUE 10/07/2018 FELIPE CASILLAS FAC, ALI FACP CCDS Ot I25.10 ATHSCL HEART DISEASE OF [place] CORONARY 10/07/2018 FELIPE CASILLAS [facility], ALI FACP CCDS Ot J43.8 OTHER EMPHYSEMA 10/07/2018 FELIPE CASILLAS [facility], ALI FACP CCDS Ot 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 10/07/2018 FELIPE CASILLAS [facility], ALI FACP CCDS Ot R06.02 SHORTNESS OF BREATH 10/07/2018 FELIPE CASILLAS [facility], ALI FACP CCDS Ot R53.83 OTHER FATIGUE 10/07/2018 GELSHYLA WIGGINS DO Ot R05 COUGH 10/07/2018 SHYLA WALLACE DO Ot R09.89 OT SYMPTOMS AND SIGNS INVOLVING THE CIR 10/07/2018 ANA LAURA FERRER DO Ot J43.8 OTHER EMPHYSEMA 10/07/2018 ANA LAURA FERRER DO Ot L93.2 OTHER LOCAL LUPUS ERYTHEMATOSUS 10/07/2018 ANA LAURA FERRER DO Ot R06.02 SHORTNESS OF BREATH 10/07/2018 MAME GIRARD DO Ot Z12.31 ENCNTR SCREEN MAMMOGRAM FOR MALIGNANT NE 10/07/2018 VAN JONES APRN Ot J44.9 CHRONIC OBSTRUCTIVE PULMONARY DISEASE, U 10/07/2018 VAN JONES APRN Ot J45.909 UNSPECIFIED ASTHMA, UNCOMPLICATED 10/07/2018 VAN JONES DENTURE MODEL MAKER Ot 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 10/07/2018 VAN JONES DENTURE MODEL MAKER Ot R91.8 OTHER NONSPECIFIC ABNORMAL FINDING OF [place] 10/07/2018 VAN JONES APRN Ot J44.9 CHRONIC OBSTRUCTIVE PULMONARY DISEASE, U 10/07/2018 VAN JONES DENTURE MODEL MAKER Ot 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 10/07/2018 VAN JONES DENTURE MODEL MAKER Ot R91.8 OTHER NONSPECIFIC ABNORMAL FINDING OF [place] 10/07/2018 LARERY, DEJA DRAGGER-C Ot M17.11 UNILATERAL PRIMARY OSTEOARTHRITIS, RIGHT 10/07/2018 VAN JONES APRN Ot I27.20 PULMONARY HYPERTENSION, UNSPECIFIED 10/07/2018 VAN JONES APRN Ot J44.9 CHRONIC OBSTRUCTIVE PULMONARY DISEASE, U 10/07/2018 VAN JONES APRN Ot J45.909 UNSPECIFIED ASTHMA, UNCOMPLICATED 10/07/2018 VAN JONES APRN Ot R06.02 SHORTNESS OF BREATH 10/07/2018 MAME GIRARD DO Ot Z12.31 ENCNTR SCREEN MAMMOGRAM FOR MALIGNANT NE 10/07/2018 SHYLA WALLACE DO Ot K59.00 CONSTIPATION, UNSPECIFIED 10/07/2018 GELLENDER DOSHYLA Ot K63.89 OTHER SPECIFIED DISEASES OF INTESTINE 10/07/2018 GELLENDER SHYLA PEDRAZA Ot N28.9 DISORDER OF KIDNEY AND URETER, UNSPECIFI 10/07/2018 FELIPE CASILLAS FACC, ALI FACP CCDS Ot E78.5 HYPERLIPIDEMIA, UNSPECIFIED 10/07/2018 FELIPE CASILLAS FACC, ALI FACP CCDS Ot I10 ESSENTIAL (PRIMARY) HYPERTENSION 10/07/2018 FELIPE CASILLAS FACC, ALI FACP CCDS Ot R06.02 SHORTNESS OF BREATH 10/07/2018 MAME GIRARD DO Ot Z12.31 ENCNTR SCREEN MAMMOGRAM FOR MALIGNANT NE Procedures Code Description Performed By Performed On 59.79 URIN INCONTIN REPAIR NEC 04/26/2006 70.51 CYSTOCELE REPAIR 04/26/2006 70.8 VAGINAL VAULT OBLITERAT 06/18/2009 81.54 TOTAL KNEE REPLACEMENT 09/15/2010 Results Test Result Range Complete blood count (CBC) with automated white blood cell (WBC) differential - 01/07/16 08:55 Blood leukocytes automated count (number/volume) 8.4 10*3/uL 4.3-11.0 Blood erythrocytes automated count (number/volume) 4.65 10*6/uL 4.35-5.85 Venous blood hemoglobin measurement (mass/volume) 13.0 g/dL 11.5-16.0 Blood hematocrit (volume fraction) 41 % 35-52 Automated erythrocyte mean corpuscular volume 87 [foz_us] 80-99 Automated erythrocyte mean corpuscular hemoglobin (mass per erythrocyte) 28 pg 25-34 Automated erythrocyte mean corpuscular hemoglobin concentration measurement (mass/volume) 32 g/dL 32-36 Automated erythrocyte distribution width ratio 14.1 % 10.0- 14.5 Automated blood platelet count (count/volume) 325 10*3/uL 130-400 Automated blood platelet mean volume measurement 10.4 [foz_us] 7.4-10.4 Automated blood neutrophils/100 leukocytes 50 % 42-75 Automated blood lymphocytes/100 leukocytes 34 % 12-44 Blood monocytes/100 leukocytes 12 % 0-12 Automated blood eosinophils/100 leukocytes 3 % 0-10 Automated blood basophils/100 leukocytes 0 % 0-10 Blood neutrophils automated count (number/volume) 4.2 10*3 1.8-7.8 Blood lymphocytes automated count (number/volume) 2.9 10*3 1.0-4.0 Blood monocytes automated count (number/volume) 1.0 10*3 0.0- 1.0 Automated eosinophil count 0.3 10*3/uL 0.0-0.3 Automated blood basophil count (count/volume) 0.0 10*3/uL 0.0-0.1 Comprehensive metabolic panel - 01/07/16 08:55 Serum or plasma sodium measurement (moles/volume) 137 mmol/L 135-145 Serum or plasma potassium measurement (moles/volume) 4.1 mmol/L 3.6-5.0 Serum or plasma chloride measurement (moles/volume) 104 mmol/L 98-107 Carbon dioxide 24 mmol/L 21-32 Serum or plasma anion gap determination (moles/volume) 9 mmol/L 5-14 Serum or plasma urea nitrogen measurement (mass/volume) 11 mg/dL 7-18 Serum or plasma creatinine measurement (mass/volume) 0.72 mg/dL 0.60-1.30 Serum or plasma urea nitrogen/creatinine mass ratio 15 NRG Serum or plasma creatinine measurement with calculation of estimated glomerular filtration rate > NRG Serum or plasma glucose measurement (mass/volume) 98 mg/dL 70-105 Serum or plasma calcium measurement (mass/volume) 9.3 mg/dL 8.5-10.1 Serum or plasma total bilirubin measurement (mass/volume) 0.6 mg/dL 0.1-1.0 Serum or plasma alkaline phosphatase measurement (enzymatic activity/volume) 42 U/L 40-136 Serum or plasma aspartate aminotransferase measurement (enzymatic activity/volume) 31 U/L 5-34 Serum or plasma alanine aminotransferase measurement (enzymatic activity/volume) 36 U/L 0-55 Serum or plasma protein measurement (mass/volume) 7.7 g/dL 6.4-8.2 Serum or plasma albumin measurement (mass/volume) 4.0 g/dL 3.2-4.5 Lipid 1996 panel - 01/07/16 08:55 Serum or plasma triglyceride measurement (mass/volume) 313 mg/dL <150 Serum or plasma cholesterol measurement (mass/volume) 202 mg/dL < 200 Serum or plasma cholesterol in HDL measurement (mass/volume) 41 mg/dL 40-60 Cholesterol in LDL [mass/volume] in serum or plasma by direct assay 111 mg/dL 1-129 Serum or plasma cholesterol in VLDL measurement (mass/volume) 63 mg/dL 5-40 Serum or plasma lithium measurement (moles/volume) - 01/07/16 08:55 BNP level 29.9 pg/mL <100.0 THYROID STIMULATING HORMONE - 01/07/16 08:55 THYROID STIMULATING HORMONE 2.63 u[iU]/mL 0.35-4.94 Digoxin - 01/07/16 08:55 Digoxin 0.60 ng/mL 0.80-2.00 Complete blood count (CBC) with automated white blood cell (WBC) differential - 01/08/16 16:34 Blood leukocytes automated count (number/volume) 10.3 10*3/uL 4.3-11.0 Blood erythrocytes automated count (number/volume) 4.80 10*6/uL 4.35-5.85 Venous blood hemoglobin measurement (mass/volume) 13.7 g/dL 11.5-16.0 Blood hematocrit (volume fraction) 41 % 35-52 Automated erythrocyte mean corpuscular volume 86 [foz_us] 80-99 Automated erythrocyte mean corpuscular hemoglobin (mass per erythrocyte) 29 pg 25-34 Automated erythrocyte mean corpuscular hemoglobin concentration measurement (mass/volume) 33 g/dL 32-36 Automated erythrocyte distribution width ratio 13.8 % 10.0- 14.5 Automated blood platelet count (count/volume) 324 10*3/uL 130-400 Automated blood platelet mean volume measurement 10.4 [foz_us] 7.4-10.4 Automated blood neutrophils/100 leukocytes 53 % 42-75 Automated blood lymphocytes/100 leukocytes 35 % 12-44 Blood monocytes/100 leukocytes 10 % 0-12 Automated blood eosinophils/100 leukocytes 3 % 0-10 Automated blood basophils/100 leukocytes 0 % 0-10 Blood neutrophils automated count (number/volume) 5.4 10*3 1.8-7.8 Blood lymphocytes automated count (number/volume) 3.6 10*3 1.0-4.0 Blood monocytes automated count (number/volume) 1.0 10*3 0.0- 1.0 Automated eosinophil count 0.3 10*3/uL 0.0-0.3 Automated blood basophil count (count/volume) 0.0 10*3/uL 0.0-0.1 PT panel in platelet poor plasma by coagulation assay - 01/08/16 16:34 Prothrombin time (PT) in platelet poor plasma by coagulation assay 12.0 s 12.2-14.7 INR in platelet poor plasma or blood by coagulation assay 0.9 0.8-1.4 Activated partial thromboplastin time (aPTT) in platelet poor plasma bycoagulation assay - 01/08/16 16:34 Activated partial thromboplastin time (aPTT) in platelet poor plasma bycoagulation assay 30 s 24-35 Comprehensive metabolic panel - 01/08/16 16:34 Serum or plasma sodium measurement (moles/volume) 136 mmol/L 135-145 Serum or plasma potassium measurement (moles/volume) 3.6 mmol/L 3.6-5.0 Serum or plasma chloride measurement (moles/volume) 98 mmol/L 98-107 Carbon dioxide 27 mmol/L 21-32 Serum or plasma anion gap determination (moles/volume) 11 mmol/L 5-14 Serum or plasma urea nitrogen measurement (mass/volume) 14 mg/dL 7-18 Serum or plasma creatinine measurement (mass/volume) 0.85 mg/dL 0.60-1.30 Serum or plasma urea nitrogen/creatinine mass ratio 16 NRG Serum or plasma creatinine measurement with calculation of estimated glomerular filtration rate > NRG Serum or plasma glucose measurement (mass/volume) 126 mg/dL 70-105 Serum or plasma calcium measurement (mass/volume) 10.8 mg/dL 8.5-10.1 Serum or plasma total bilirubin measurement (mass/volume) 0.5 mg/dL 0.1-1.0 Serum or plasma alkaline phosphatase measurement (enzymatic activity/volume) 48 U/L 40-136 Serum or plasma aspartate aminotransferase measurement (enzymatic activity/volume) 31 U/L 5-34 Serum or plasma alanine aminotransferase measurement (enzymatic activity/volume) 39 U/L 0-55 Serum or plasma protein measurement (mass/volume) 8.2 g/dL 6.4-8.2 Serum or plasma albumin measurement (mass/volume) 4.3 g/dL 3.2-4.5 Serum or plasma creatine kinase measurement (enzymatic activity/volume) - 01/08/16 16:34 Serum or plasma creatine kinase measurement (enzymatic activity/volume) 63 U/L 29-168 Serum or plasma creatine kinase MB measurement (enzymatic activity/volume) - 01/08/16 16:34 Serum or plasma creatine kinase MB measurement (enzymatic activity/volume) 1.3 ng/mL <6.6 Serum or plasma troponin i.cardiac measurement (mass/volume) - 01/08/16 16:34 Serum or plasma troponin i.cardiac measurement (mass/volume) < ng/mL <0.30 Serum or plasma amylase measurement (enzymatic activity/volume) - 01/08/16 16:34 Serum or plasma amylase measurement (enzymatic activity/volume) 45 U/L 25-125 Lipase - 01/08/16 16:34 Lipase 14 U/L 8-78 Serum or plasma lithium measurement (moles/volume) - 01/08/16 16:34 BNP level 16.4 pg/mL <100.0 Complete blood count (CBC) with automated white blood cell (WBC) differential - 08/13/16 11:42 Blood leukocytes automated count (number/volume) 15.4 10*3/uL 4.3-11.0 Blood erythrocytes automated count (number/volume) 4.73 10*6/uL 4.35-5.85 Venous blood hemoglobin measurement (mass/volume) 13.3 g/dL 11.5-16.0 Blood hematocrit (volume fraction) 41 % 35-52 Automated erythrocyte mean corpuscular volume 88 [foz_us] 80-99 Automated erythrocyte mean corpuscular hemoglobin (mass per erythrocyte) 28 pg 25-34 Automated erythrocyte mean corpuscular hemoglobin concentration measurement (mass/volume) 32 g/dL 32-36 Automated erythrocyte distribution width ratio 14.8 % 10.0- 14.5 Automated blood platelet count (count/volume) 321 10*3/uL 130-400 Automated blood platelet mean volume measurement 9.9 [foz_us] 7.4-10.4 Automated blood neutrophils/100 leukocytes 73 % 42-75 Automated blood lymphocytes/100 leukocytes 16 % 12-44 Blood monocytes/100 leukocytes 10 % 0-12 Automated blood eosinophils/100 leukocytes 1 % 0-10 Automated blood basophils/100 leukocytes 0 % 0-10 Blood neutrophils automated count (number/volume) 11.2 10*3 1.8-7.8 Blood lymphocytes automated count (number/volume) 2.5 10*3 1.0-4.0 Blood monocytes automated count (number/volume) 1.5 10*3 0.0- 1.0 Automated eosinophil count 0.2 10*3/uL 0.0-0.3 Automated blood basophil count (count/volume) 0.0 10*3/uL 0.0-0.1 Blood manual differential performed detection - 08/13/16 11:42 Blood monocytes/100 leukocytes 4 % NRG Manual blood segmented neutrophils/100 leukocytes 77 % NRG Blood band neutrophils/100 leukocytes 0 % NRG Manual blood lymphocytes/100 leukocytes 15 % NRG Manual eosinophils/100 leukocytes in nose 2 % NRG Manual blood basophils/100 leukocytes 1 % NRG Blood erythrocyte morphology finding identification NORMAL NRG Blood toxic granules detection by light microscopy 1+ NRG Whole blood basic metabolic panel - 08/25/16 12:01 Serum or plasma sodium measurement (moles/volume) 136 mmol/L 135-145 Serum or plasma potassium measurement (moles/volume) 4.1 mmol/L 3.6-5.0 Serum or plasma chloride measurement (moles/volume) 100 mmol/L 98-107 Carbon dioxide 28 mmol/L 21-32 Serum or plasma anion gap determination (moles/volume) 8 mmol/L 5-14 Serum or plasma urea nitrogen measurement (mass/volume) 19 mg/dL 7-18 Serum or plasma creatinine measurement (mass/volume) 0.85 mg/dL 0.60-1.30 Serum or plasma urea nitrogen/creatinine mass ratio 22 NRG Serum or plasma creatinine measurement with calculation of estimated glomerular filtration rate > NRG Serum or plasma glucose measurement (mass/volume) 91 mg/dL 70-105 Serum or plasma calcium measurement (mass/volume) 9.2 mg/dL 8.5-10.1 Serum or plasma rheumatoid factor measurement (units/volume) - 08/25/16 12:01 Serum or plasma rheumatoid factor measurement (units/volume) NEGATIVE NEGATIVE [id number] - 08/25/16 12:01 Screening antinuclear antibody (ADRIANO) assay by enzyme immunoassay Positive <1:80 Anaplasma phagocytophilum IgG ab [titer] in serum <1:80 Serum nuclear antibody pattern interpretation Homogeneous NRG IMMUNOGLOBULIN IGE - 08/25/16 12:01 Serum or plasma IgE antibody detection 21.1 NRG IgE measurement (mass/volume) See Footnote NRG Automated blood complete blood count (hemogram) panel - 11/17/16 07:28 Blood leukocytes automated count (number/volume) 10.6 10*3/uL 4.3-11.0 Blood erythrocytes automated count (number/volume) 4.98 10*6/uL 4.35-5.85 Venous blood hemoglobin measurement (mass/volume) 14.1 g/dL 11.5-16.0 Blood hematocrit (volume fraction) 43 % 35-52 Automated erythrocyte mean corpuscular volume 87 [foz_us] 80-99 Automated erythrocyte mean corpuscular hemoglobin (mass per erythrocyte) 28 pg 25-34 Automated erythrocyte mean corpuscular hemoglobin concentration measurement (mass/volume) 33 g/dL 32-36 Automated erythrocyte distribution width ratio 14.4 % 10.0- 14.5 Automated blood platelet count (count/volume) 348 10*3/uL 130-400 Automated blood platelet mean volume measurement 10.1 [foz_us] 7.4-10.4 PT panel in platelet poor plasma by coagulation assay - 11/17/16 07:28 Prothrombin time (PT) in platelet poor plasma by coagulation assay 11.5 s 12.2-14.7 INR in platelet poor plasma or blood by coagulation assay 0.9 0.8-1.4 Activated partial thromboplastin time (aPTT) in platelet poor plasma bycoagulation assay - 11/17/16 07:28 Activated partial thromboplastin time (aPTT) in platelet poor plasma bycoagulation assay 31 s 24-35 Comprehensive metabolic panel - 11/17/16 07:28 Serum or plasma sodium measurement (moles/volume) 138 mmol/L 135-145 Serum or plasma potassium measurement (moles/volume) 3.8 mmol/L 3.6-5.0 Serum or plasma chloride measurement (moles/volume) 101 mmol/L 98-107 Carbon dioxide 23 mmol/L 21-32 Serum or plasma anion gap determination (moles/volume) 14 mmol/L 5-14 Serum or plasma urea nitrogen measurement (mass/volume) 11 mg/dL 7-18 Serum or plasma creatinine measurement (mass/volume) 0.78 mg/dL 0.60-1.30 Serum or plasma urea nitrogen/creatinine mass ratio 14 NRG Serum or plasma creatinine measurement with calculation of estimated glomerular filtration rate > NRG Serum or plasma glucose measurement (mass/volume) 96 mg/dL 70-105 Serum or plasma calcium measurement (mass/volume) 10.0 mg/dL 8.5-10.1 Serum or plasma total bilirubin measurement (mass/volume) 0.7 mg/dL 0.1-1.0 Serum or plasma alkaline phosphatase measurement (enzymatic activity/volume) 45 U/L 40-136 Serum or plasma aspartate aminotransferase measurement (enzymatic activity/volume) 24 U/L 5-34 Serum or plasma alanine aminotransferase measurement (enzymatic activity/volume) 25 U/L 0-55 Serum or plasma protein measurement (mass/volume) 8.3 g/dL 6.4-8.2 Serum or plasma albumin measurement (mass/volume) 4.2 g/dL 3.2-4.5 Lipid 1996 panel - 11/17/16 07:28 Serum or plasma triglyceride measurement (mass/volume) 449 mg/dL <150 Serum or plasma cholesterol measurement (mass/volume) 235 mg/dL < 200 Serum or plasma cholesterol in HDL measurement (mass/volume) 45 mg/dL 40-60 Cholesterol in LDL [mass/volume] in serum or plasma by direct assay 96 mg/dL 1-129 Serum or plasma cholesterol in VLDL measurement (mass/volume) 90 mg/dL 5-40 Digoxin - 11/17/16 07:28 Digoxin 0.47 ng/mL 0.80-2.00 Arterial blood oxygen saturation measurement - 11/17/16 10:16 Arterial blood oxygen saturation measurement 93 % 94-100 Arterial blood oxygen saturation measurement - 11/17/16 10:17 Arterial blood oxygen saturation measurement 70 % 94-100 Arterial blood oxygen saturation measurement - 11/17/16 10:18 Arterial blood oxygen saturation measurement 69 % 94-100 Arterial blood oxygen saturation measurement - 11/17/16 10:19 Arterial blood oxygen saturation measurement 69 % 94-100 [id number] - 01/31/18 15:18 Serum or plasma urea nitrogen measurement (mass/volume) 12 mg/dL 7-18 Serum or plasma creatinine measurement (mass/volume) 0.82 mg/dL 0.60-1.30 Serum or plasma urea nitrogen/creatinine mass ratio 15 NRG Serum or plasma creatinine measurement with calculation of estimated glomerular filtration rate > NRG Encounters ACCT No. Visit Date/Time Discharge Status Pt. Type Provider Facility Loc./Unit Complaint [id number] 10/05/2018 13:30:00 10/05/2018 14:02:00 DIS Outpatient REINIER ADEN DO [facility] PREOP COLONOSCOPY/EGD [id number] 09/26/2018 08:41:00 09/26/2018 23:59:59 CLS Outpatient MAME GIRARD DO [facility] RAD SCREENING [id number] 07/25/2018 08:12:00 07/25/2018 23:59:59 CLS Outpatient FELIPE CASILLAS FACCTRISHA FACP CCDS [facility] LAB SOB,HYPERLIPIDEMIA [id number] 02/01/2018 07:59:00 02/01/2018 23:59:59 CLS Outpatient SHYLA WALLACE DO [facility] RAD ABDOMINAL PAIN BLOATING [id number] 01/31/2018 15:11:00 01/31/2018 23:59:59 CLS Outpatient SHYLA WALLACE DO [facility] LAB RENAL INSUFF [id number] 09/23/2017 09:16:00 09/23/2017 23:59:59 CLS Outpatient MAME GIRARD DO [facility] RAD SCREENING [id number] 09/20/2017 09:41:00 09/20/2017 23:59:59 CLS Outpatient VAN JONES APRN [facility] RAD COPD J43.8 [id number] 04/13/2017 13:00:00 04/13/2017 23:59:59 CLS Preadmit VAN JONES APRN [facility] PULM COPD J43.8 [id number] 02/16/2017 10:00:00 04/12/2017 00:01:00 DIS Outpatient VAN JONES APRN [facility] PULM COPD J43.8 [id number] 03/13/2017 16:47:00 03/13/2017 23:59:59 CLS Outpatient DEJA PARKS BRAYDEN-C [facility] RAD M25.561, [id number] 01/07/2017 10:00:00 01/09/2017 00:01:00 DIS Outpatient VAN JONES APRN [facility] PULM COPD J43.8 [id number] 11/17/2016 07:06:00 11/17/2016 14:00:00 DIS Outpatient FELIPE CASILLAS FACC, TRISHA VASQUEZ CCDS [facility] CATH SOB,ANGINA,CAD,FATIGUE [id number] 10/06/2016 12:34:00 10/06/2016 23:59:59 CLS Outpatient MAME GIRARD DO [facility] RAD SCREENING Z12.31 [id number] 10/06/2016 12:32:00 10/06/2016 23:59:59 CLS Outpatient VAN JONES APRN [facility] RAD UIP J84.112 [id number] 08/25/2016 11:37:00 08/25/2016 23:59:59 CLS Outpatient ANA LAURA FERRER DO [facility] LAB COPD,SOB [id number] 08/13/2016 11:31:00 08/13/2016 23:59:59 CLS Outpatient SHYLA WALLACE DO [facility] LAB RESPIRATORY INF,COUGH CONGESTION [id number] 02/24/2016 10:00:00 02/24/2016 23:59:59 CLS Outpatient FELIPE CASILLAS FACC, TRISHA VASQUEZ CCDS [facility] LAB SOB,CAD,COPD,UIP [id number] 01/23/2016 08:09:00 01/23/2016 23:59:59 CLS Outpatient HELENE TEJEDA [facility] CARD DIEZ,CAD,FATIGUE [id number] 01/22/2016 07:06:00 01/22/2016 23:59:59 CLS Outpatient HELENE TEJEDAP [facility] RAD DIEZ,FATIGUE,CAD,HTN,HLP,LEFT BUNDLE BRANCH BLOCK [id number] 01/17/2016 12:56:00 01/17/2016 23:59:59 CLS Outpatient HELENE TEJEDAP [facility] LAB DIEZ,CAD,HTN,HLP,FATIGUE [id number] 01/14/2016 10:15:00 01/14/2016 23:59:59 CLS Outpatient SHYLA WALLACE DO [facility] CARD SOB,TIRED [id number] 01/08/2016 16:19:00 01/08/2016 18:10:00 DIS Emergency GILLIAN DE PAZ DO [facility] ER CP [id number] 01/07/2016 08:35:00 01/07/2016 23:59:59 CLS Outpatient SHYLA WALLACE DO [facility] RAD SOB,TIRED [id number] 10/03/2015 15:00:00 10/03/2015 23:59:59 CLS Outpatient SHYLA WALLACE DO [facility] RAD RIGHT CALF PAIN GETTING WORSE [id number] 02/20/2015 12:43:00 02/20/2015 23:59:59 CLS Outpatient MAME GIRARD DO Kelly [facility] RAD PELVIC PAIN [id number] 12/08/2014 21:00:00 12/09/2014 00:59:00 DIS Emergency SCOOTER TAVARES MD [facility] ER EPIGASTRIC PAIN ABDOMINAL PAIN [id number] 12/06/2014 13:17:00 12/06/2014 23:59:59 CLS Outpatient KIM RCOA MD [facility] RAD CERVICAL PAIN [id number] 09/12/2014 10:24:00 09/12/2014 23:59:59 CLS Outpatient MOISES SAUL [facility] RAD SCREENING [id number] 01/31/2014 13:03:00 01/31/2014 23:59:59 CLS Outpatient FELIPE CASILLAS FACC, TRISHA VASQUEZ CCDS [facility] CARD LBBB,SOB [id number] 01/30/2014 11:38:00 01/30/2014 16:50:00 DIS Outpatient REINIER ADEN DO [facility] SDC SCREENING;REFLUX [id number] 01/25/2014 07:13:00 01/25/2014 23:59:59 CLS Outpatient FELIPE CASILLAS FACC, TRISHA VASQUEZ CCDS [facility] CARD LBBB,SOB,HTN,HLP [id number] 01/24/2014 07:20:00 01/24/2014 23:59:59 CLS Outpatient REINIER ADEN DO [facility] PREOP SCREENING;REFLUX [id number] 01/05/2014 08:02:00 01/05/2014 23:59:59 CLS Outpatient SHYLA WALLACE DO [facility] RAD DIARRHEA,ABD DISCOMFORT [id number] 01/02/2014 09:29:00 01/02/2014 23:59:59 CLS Outpatient SHYLA WALLACE DO [facility] CARD ABDOMINAL PAIN RIGHT UPPER QUAD [id number] 12/21/2013 08:40:00 12/21/2013 23:59:59 CLS Outpatient SHYLA WALLACE DO [facility] RAD RUQ PAIN [id number] 09/30/2013 13:36:00 09/30/2013 23:59:59 CLS Outpatient JEANMARIE LUBIN APRN [facility] QUICK POSSIBLE UTI [id number] 08/14/2013 10:10:00 08/14/2013 23:59:59 CLS Outpatient MAME GIRARD DO [facility] RAD SCREENING [id number] 07/05/2013 14:23:00 07/05/2013 23:59:59 CLS Outpatient SHYLA WALLACE DO [facility] RAD SOB [id number] 05/24/2013 08:11:00 05/24/2013 23:59:59 CLS Outpatient HELENE TEJEDA [facility] LAB CAD,HYPERLIPIDEMIA,DIGOXIN TX [id number] 03/21/2013 20:57:00 03/22/2013 06:55:00 DIS Outpatient ANA LAURA FERRER DO [facility] SLEEP OA,SNORING,ARRHYTHMIAS,HTN,ISCHEMIC HEART DISEASE [id number] 03/01/2013 12:52:00 03/01/2013 23:59:59 CLS Outpatient ANA LAURA FERRER DO [facility] RT EXCESSIVE SLEEPINESS,HTN,SOB [id number] 02/16/2013 07:00:00 02/16/2013 23:59:59 CLS Outpatient BAIMA HELENE L [employer] [facility] RAD CAD,HTN [id number] 02/09/2013 08:02:00 02/09/2013 23:59:59 CLS Outpatient BAIMA, HELENE L [employer] [facility] CARD CAD,HTN [id number] 09/19/2012 06:52:00 09/19/2012 23:59:59 CLS Outpatient BAIMA, HELENE L [employer] [facility] LAB HYPERLIPIDEMIA [id number] 08/09/2012 09:03:00 08/09/2012 23:59:59 CLS Outpatient MAME GIRARD DO [facility] RAD SCREENING [id number] 10/11/2018 11:00:00 PEN Preadmit REINIER ADEN DO [facility] ENDO CHANGE IN BOWELS/BRIGHT RED BLOOD IN STOOLS/GERD [id number] 04/28/2017 17:01:00 Document Registration [id number] 04/28/2017 16:33:00 Document Registration [id number] 04/28/2017 16:33:00 Document Registration [id number] 04/28/2017 16:33:00 Document Registration [id number] 04/28/2017 16:33:00 Document Registration [id number] 04/28/2017 16:33:00 Document Registration [id number] 03/21/2014 14:11:00 Document Registration [id number] 2012 08:33:00 Document Registration [id number] 08/02/2012 11:28:00 Document Registration [id number] 02/08/2012 08:45:00 Document Registration [id number] 08/14/2011 12:20:00 Document Registration [id number] 08/07/2011 10:21:00 Document Registration [id number] 07/06/2011 08:47:00 Document Registration [id number] 02/09/2011 09:03:00 Document Registration [id number] 11/27/2010 08:45:00 Document Registration [id number] 10/28/2010 04:52:00 Document Registration [id number] 10/14/2010 10:48:00 Document Registration [id number] 10/07/2010 10:30:00 Document Registration [id number] 10/01/2010 10:00:00 Document Registration [id number] 10/01/2010 10:00:00 Document Registration [id number] 09/26/2010 09:45:00 Document Registration [id number] 09/19/2010 13:00:00 Document Registration [id number] 09/15/2010 05:51:00 Document Registration [id number] 09/11/2010 13:02:00 Document Registration [id number] 09/04/2010 08:13:00 Document Registration [id number] 2010 10:10:00 Document Registration [id number] 07/04/2010 13:09:00 Document Registration [id number] 05/09/2010 08:21:00 Document Registration [id number] 04/09/2010 07:39:00 Document Registration [id number] 02/22/2010 12:45:00 Document Registration [id number] 11/05/2009 08:52:00 Document Registration [id number] 08/01/2009 09:00:00 Document Registration [id number] 06/12/2009 08:57:00 Document Registration [id number] 06/03/2009 11:38:00 Document Registration [id number] 05/24/2009 15:09:00 Document Registration [id number] 03/14/2009 08:15:00 Document Registration [id number] 08/15/2008 07:36:00 Document Registration [id number] 06/26/2008 08:46:00 Document Registration [id number] 06/12/2008 09:33:00 Document Registration [id number] 02/15/2008 08:54:00 Document Registration [id number] 11/15/2007 15:06:00 Document Registration [id number] 08/22/2007 08:20:00 Document Registration [id number] 06/15/2007 10:18:00 Document Registration [id number] 06/09/2007 10:25:00 Document Registration [id number] 04/18/2007 08:49:00 Document Registration [id number] 01/26/2007 09:44:00 Document Registration [id number] 07/06/2006 09:50:00 Document Registration [id number] 05/19/2006 10:00:00 Document Registration [id number] 04/26/2006 08:11:00 Document Registration [id number] 04/22/2006 08:42:00 Document Registration [id number] 04/07/2006 06:27:00 Document Registration [id number] 03/16/2006 12:35:00 Document Registration [id number] 12/15/2005 09:55:00 Document Registration [id number] 09/28/2005 09:09:00 Document Registration [id number] 09/22/2005 08:34:00 Document Registration [id number] 09/15/2005 10:00:00 Document Registration [id number] 08/28/2005 11:29:00 Document Registration [id number] 06/25/2005 14:25:00 Document Registration [id number] 05/13/2005 09:23:00 Document Registration
[2018-10-11 11:05] VITALS: BP 138/73
[2018-10-11 11:14] VITALS: BP 138/73
--- NOTE | 2018-10-11 15:55 | OPERATIVE REPORT ---
DATE OF SERVICE: 10/11/2018 PREOPERATIVE DIAGNOSES: Change in bowel habits, blood in stool, periumbilical abdominal pain. POSTOPERATIVE DIAGNOSES: Small hiatal hernia, hemorrhoids. PROCEDURE: EGD with biopsies, colonoscopy. SURGEON: Reinier Cary DO ANESTHESIA: Per [employer]. ESTIMATED BLOOD LOSS: None. COMPLICATIONS: None. INDICATIONS: The patient is an 83-year-old female who has had change in bowel habits, blood in stool and some periumbilical abdominal pain and GERD symptoms. She understands risks and benefits of procedure and wished to proceed with procedure. Consent was signed on the chart. DESCRIPTION OF PROCEDURE: The patient was taken to the endoscopy suite, placed in left lateral recumbent position. Timeout was performed. Scope was inserted in mouth, down the esophagus, stomach and into the duodenum without difficulty. There were no polyps, masses or ulcerations within the duodenum. Scope was then slowly retracted back. There were no polyps, masses or ulcerations within the stomach. Biopsy of the antrum was obtained. Some slight erythematous changes. Scope was retroflexed noting small hiatal hernia, no other pathology noted. Scope was returned to its normal position, slowly withdrawn to the distal esophagus. Biopsy of GE junction was obtained. Scope was then slowly retracted back noting no other pathology. Digital rectal exam was performed noting hemorrhoids. There were no palpable polyps, masses or ulcerations. Scope was inserted into the rectum and advanced all the way to the cecum with minimal difficulty. Prep was adequate. There were no polyps, masses or ulcerations in the cecum, ascending, transverse, descending and sigmoid colon. There was minimal amount of diverticulosis throughout. Once in the rectum, scope was retroflexed just noting internal hemorrhoids. Scope was returned to its normal position, slowly withdrawn until completely removed. No source of bleeding found except likely source is the hemorrhoids. The patient was started on omeprazole 20 mg daily to see if any improvement. The patient will follow up in the office in 2 weeks. The patient will need repeat colonoscopy on as needed basis. If the patient has issues with her hemorrhoids, we could discuss either hemorrhoid energy therapy or excision. The patient to follow up in 2 weeks. Any issues before, that will be seen at that time. Job ID: [id number] DocumentID: [id number] Dictated Date: 10/11/2018 10:32:58 Garnishment Specialist Date: 10/11/2018 15:54:52 Dictated By: REINIER CARY DO
== END 2018-10-11 11:15 | disposition home or self-care (01) ==
LOC: ENDO 08:54
PROVIDERS: ATTEND Surgery
DX: K64.8 Other hemorrhoids (principal); K57.30 Diverticulosis of large intestine without perforation or abscess without bleeding; K21.9 Gastro-esophageal reflux disease without esophagitis; K44.9 Diaphragmatic hernia without obstruction or gangrene; I25.10 Atherosclerotic heart disease of native coronary artery without angina pectoris; I11.0 Hypertensive heart disease with heart failure; I50.9 Heart failure, unspecified; E78.5 Hyperlipidemia, unspecified; I27.20 Pulmonary hypertension, unspecified; J44.9 Chronic obstructive pulmonary disease, unspecified; G47.33 Obstructive sleep apnea (adult) (pediatric); F32.9 Major depressive disorder, single episode, unspecified; F41.9 Anxiety disorder, unspecified; Z79.82 Long term (current) use of aspirin; Z79.899 Other long term (current) drug therapy; Z95.5 Presence of coronary angioplasty implant and graft
CPT/HCPCS: 88305; 88312

== ENCOUNTER → 2018-11-01 | Outpatient (CLI) | payer MEDICARE, OTHER ==
[~2018-11-01] MED LIST changes: +OMEP20TA7 PO
--- NOTE | 2018-11-01 10:42 | Diagnostic Imaging Report ---
PROCEDURE: US Gallbladder. TECHNIQUE: Multiple real-time grayscale images were obtained over the right upper quadrant in various projections. INDICATION: Epigastric tenderness COMPARISON: There are no prior studies available for comparison. FINDINGS: There is no evidence for cholelithiasis or acute cholecystitis and the common bile duct is not dilated. The liver is not enlarged. The liver is more echogenic than usually seen and this does suggest fatty metamorphosis. There is no focal mass involving the liver and the biliary tree is not abnormally dilated. Spectral color flow imaging of the portal vein shows that the vein is patent and that there is normal directional flow within the vein. The right kidney is unremarkable. The pancreas, the aorta and the inferior vena cava were partially obscured. IMPRESSION: 1. There is no evidence for cholelithiasis or acute cholecystitis. 2. If clinical concern regarding an acute abnormality of the gallbladder persists, then a nuclear medicine hepatobiliary scan would be recommended for further study. 3. The appearance of the liver does suggest fatty metamorphosis. Dictated by: Dictated on workstation # [id number]
== END ==
LOC: RAD 08:11
PROVIDERS: ATTEND Surgery
DX: R10.816 Epigastric abdominal tenderness (principal)
CPT/HCPCS: 76705

== ENCOUNTER → 2018-11-21 | Outpatient (CLI) | payer MEDICARE, MEDICAID ==
[~2018-11-21] MED LIST changes: -OMEP20CA12 PO; +OMEP20CA13 PO
--- NOTE | 2018-11-21 15:44 | Diagnostic Imaging Report ---
Indication: Abdominal pain After intravenous administration of 5.4 mCi technetium 99m Choletec, scintigraphic images of the upper abdomen are obtained. Initial images reveal normal distribution of activity throughout the liver. There is prompt appearance of activity in the biliary tree and gallbladder. Activity passes freely into the small bowel. Oral ensure was administered with gallbladder ejection fraction calculated to be 31%. Normal values are 35 % or greater. Impression: No scintigraphic evidence of acute cholecystitis or biliary obstruction. Gallbladder ejection fraction is at the lower limits of normal. Dictated by: Dictated on workstation # [id number]
== END ==
LOC: CARD 12:14
PROVIDERS: ATTEND Surgery
DX: R10.816 Epigastric abdominal tenderness (principal)
CPT/HCPCS: 78227

== ENCOUNTER 2018-11-29 06:32 | Outpatient (CLI) | payer MEDICARE, MEDICAID ==
[~2018-11-29] VITALS: Ht 162.6 cm; Wt 79.4 kg
[2018-11-29] MEDS ORDERED: BUDE10.2 IH (14:40)
[2018-11-29] MEDS ORDERED: RT-ALBUINH INH (14:40)
== END 2018-11-29 15:32 | disposition home or self-care (01) ==
LOC: PREOP 06:32
PROVIDERS: ATTEND Surgery
DX: Z01.818 Encounter for other preprocedural examination (principal)

== ENCOUNTER 2018-12-08 09:18 | Day surgery (SDC) | payer MEDICARE, MEDICAID ==
[~2018-12-08] VITALS: Ht 162.6 cm; Wt 79.4 kg
[2018-12-08] VITALS (12 sets, daily range): BP systolic 118–172; BP diastolic 58–80
[~2018-12-08 09:18] MED LIST changes: +BUDE10.2 IH; +RT-ALBUINH INH
[2018-12-08] MEDS ORDERED: LACTATED RINGERS 1,000 ML IV PRN (09:32)
[2018-12-08] MEDS ORDERED: CLINDAMYCIN 600 MG/50 ML IVPB 50 ML IV ONE (09:45)
--- NOTE | 2018-12-08 09:57 | Progress Note-Pre Operative ---
Pre-Operative Progress Note H&P Reviewed The H&P was reviewed, patient examined and no changes noted. Date Seen by Provider: Dec 08, 2018 Time Seen by Provider: 09:56 Date H&P Reviewed: Dec 08, 2018 Time H&P Reviewed: 09:56 Pre-Operative Diagnosis: biliary dyskinesia REINIER ADEN DO Dec 08, 2018 09:57
[2018-12-08 09:58] LABS: BASOPHILS % (AUTO) 0 % (0-10); EOSINOPHILS # (AUTO) 0.3 10^3/uL (0.0-0.3); EOSINOPHILS % (AUTO) 3 % (0-10); HEMATOCRIT 40 % (35-52); LYMPHOCYTES # (AUTO) 2.9 X 10^3 (1.0-4.0); LYMPHOCYTES % (AUTO) 33 % (12-44); MEAN CORPUSCULAR HEMOGLOBIN 28 PG (25-34); MEAN CORPUSCULAR HGB CONC 32 G/DL (32-36); MEAN CORPUSCULAR VOLUME 86 FL (80-99); MEAN PLATELET VOLUME 10.1 FL (7.4-10.4); MONOCYTES # (AUTO) 0.8 X 10^3 (0.0-1.0); MONOCYTES % (AUTO) 9 % (0-12); NEUTROPHILS # (AUTO) 4.8 X 10^3 (1.8-7.8); NEUTROPHILS % (AUTO) 54 % (42-75); PLATELET COUNT 311 10^3/uL (130-400); RED CELL DISTRIBUTION WIDTH 14.5 % (10.0-14.5); WHITE BLOOD COUNT 8.9 10^3/uL (4.3-11.0)
[2018-12-08] MEDS ORDERED: IOPAMIDOL 61% 30 ML (ISOVUE 300) VIAL IV ONE (10:05)
[2018-12-08] MEDS ORDERED: BUP/EPI 0.5% 1:200,000 (MARCAINE) 10ML VIAL IJ ONE (10:06)
[2018-12-08] MEDS ORDERED: MIDAZOLAM 2 MG/2 ML (VERSED) VIAL ONE (10:21)
[2018-12-08] MEDS ORDERED: fentaNYL INJECTION 100 MCG/2 ML AMP ONE ×2 (10:21→12:31)
[2018-12-08] MEDS ORDERED: proPOfol 200 MG/20 ML (DIPRIVAN) VIAL IV ONE (11:28)
[2018-12-08] MEDS ORDERED: SEVOFLURANE (ULTANE) 15 ML INHAL SOLN ONE ×4 (11:28→12:00)
[2018-12-08] MEDS ORDERED: ROCURONIUM 10 MG/ML 5 ML SYRINGE IV ONE (11:28)
[2018-12-08] MEDS ORDERED: LIDOCAINE PF 2% 5 ML (XYLOCAINE) VIAL ONE (11:28)
[2018-12-08] MEDS ORDERED: ONDANSETRON 4 MG/2 ML (SDV) Z0FRAN ONE (11:28)
[2018-12-08] MEDS ORDERED: ACHD5005 PO (12:00)
[2018-12-08] MEDS ORDERED: DOCU-143 PO (12:00)
--- NOTE | 2018-12-08 12:01 | Discharge Inst-Simple/Standard ---
Discharge Inst-Standard Discharge Medications New, Converted or Re-Newed RX: RX on Chart Patient Instructions/Follow Up Plan of Care/Instructions/FU: 2 weeks Raeann Activity as Tolerated: No Discharge Diet: Regular Diet Other Inst to Patient Follow up Appt: Make appointment for 2 weeks. Instructions: No lifting greater than 10 pounds. No strenuous activity. May shower in 24 hours, no tub bath or soaking. Use incentive spirometer at home as directed. No Smoking Skin/Wound Care: You have special glue over incisions it will fall off on its own. Symptoms to Report: Appetite Changes, Extremity Discoloration, Numbness/Tingling, Swelling Increased, Bleeding Excessive, Eyesight Changes, Pain Increased, Urine Color Change, Constipation(Persistent), Fever over 101 degree F, Pain/Pressure in ches t, Urinating Difficulty, Cough Up/Vomit Blood, Heart Beat Irreg/Pounding, Pain/Pressure in jaw, Vaginal Bleeding Increase, Cramps in feet or legs, Lightheadedness, Pain/Pressure in shoulder, Diarrhea(Persistent), Memory Changes Suddenly, Questions/Concerns, Weight gain consecutive days, Dizziness/Fainting, Nausea/Vomiting, Shortness of Breath, Weight gain over 2 pounds. If eyes or skin turn yellow notify physician. If questions or concerns contact your physician Or seek help at emergency department. REINIER ADEN DO Dec 08, 2018 12:01
--- NOTE | 2018-12-08 12:03 | Progress Note-Post Operative ---
Post-Operative Progess Note Surgeon (s)/Forgeman Helper (s) Surgeon REINIER ADEN DO Forgeman Helper: Dr. Kern Pre-Operative Diagnosis biliary dyskinesia Post-Operative Diagnosis same Procedure & Operative Findings Date of Procedure 12/08/18 Procedure Performed/Findings lap jennifer c ioc Anesthesia Type general Estimated Blood Loss Estimated blood loss (mL): min Specimens/Packing Specimens Removed gallbladder REINIER ADEN DO Dec 08, 2018 12:03
--- NOTE | 2018-12-08 12:24 | Anesthesia-General Post-Op ---
General Patient Condition Mental Status/LOC: Same as Preop Cardiovascular: Satisfactory Nausea/Vomiting: Absent Respiratory: Satisfactory Pain: Controlled Complications: Absent Post Op Complications Complications None Follow Up Care/Instructions Patient Instructions None needed. Anesthesia/Patient Condition Patient Condition Patient is doing well, no complaints, stable vital signs, no apparent adverse anesthesia problems. No complications reported per nursing. TJ MONROE CRNA Dec 08, 2018 12:24
[2018-12-08] MEDS ORDERED: MEPERIDINE (DEMEROL) INJ 50 MG/ML IVP ONE (12:30)
[2018-12-08] MEDS ORDERED: morphine INJ 10 MG/ML 1ML (SYR OR VIAL) IVP ONE (12:30)
[2018-12-08] MEDS ORDERED: ONDANSETRON 4 MG/2 ML (SDV) Z0FRAN IVP PRN (12:30)
[2018-12-08] MEDS ORDERED: fentaNYL INJECTION 100 MCG/2 ML AMP IVP ONE (12:45)
[2018-12-08] MEDS ORDERED: HYDROcodone/APAP 5 MG/325 MG (LORTAB) TAB ONE (13:42)
[2018-12-08] MEDS ORDERED: HYDROcodone/APAP 5 MG/325 MG (LORTAB) TAB PO ONE (15:30)
--- NOTE | 2018-12-08 17:35 | OPERATIVE REPORT ---
DATE OF SERVICE: 12/08/2018 PREOPERATIVE DIAGNOSIS: Biliary dyskinesia. POSTOPERATIVE DIAGNOSIS: Biliary dyskinesia. PROCEDURE PERFORMED: Laparoscopic cholecystectomy with intraoperative cholangiogram. SURGEON: Reinier Cary DO SPRAGGER: Maxwell Kern DO, assisted in retraction, dissection and closure. ANESTHESIA: General. ESTIMATED BLOOD LOSS: Minimal. COMPLICATIONS: None. INDICATIONS: The patient is an 83-year-old female with symptoms of gallbladder disease. Radiological studies demonstrating biliary dyskinesia. She understands risks and benefits of procedure and wished to proceed with procedure. Consent was signed in the chart. DESCRIPTION OF PROCEDURE: The patient was taken to the operating suite, prepped and draped in sterile fashion. Timeout was performed. A 12 mm incision was made just above the umbilicus. Cautery was used to dissect down to the fascia, which was scored, grasped, elevated. The abdomen was entered. An #0 Vicryl was placed in a [id number] fashion for closure at the end of the case. Balloon trocar was inserted. Pneumoperitoneum was achieved. Under direct visualization of the laparoscope, a 5 mm trocar was placed in the subxiphoid region and two 5 mm trocars were placed in the right upper quadrant. Gallbladder was grasped, elevated, multiple adhesions to the gallbladder were present. These were taken down. Cystic duct and cystic artery were then dissected out. Clips were placed on the proximal and distal portion of the cystic artery and the distal portion of the cystic duct. The duct was then partially transected. Arrow catheter was inserted and cholangiogram was performed with no filling defects. Contrast made its way into the duodenum without difficulty. The catheter was removed. Clips were placed on the proximal portion of the cystic duct and the duct was then transected along with the artery. Hook cautery was used to dissect the gallbladder from the gallbladder fossa achieving hemostasis. Once removed, it was placed in an Endobag and removed through the 12 mm trocar site. The abdomen was irrigated and suctioned with copious amounts of irrigation. The abdomen was then desufflated, the trocars were removed. The #0 Vicryl was then tied closing the 12 mm fascial defect. The skin was then closed using 4-0 Monocryl in subcuticular fashion. The abdomen was then washed and dried and Skin Affix was placed over the incisions. The patient tolerated procedure well without any complications. She was taken to the recovery room in stable condition. Job ID: [id number] DocumentID: [id number] Dictated Date: 12/08/2018 12:10:02 Gravedigger Date: 12/08/2018 17:35:14 Dictated By: REINIER CARY DO
--- NOTE | 2018-12-08 20:36 | Diagnostic Imaging Report ---
INDICATION: Bone pain. EXAMINATION: Fluoroscopy. Fluoroscopic assistance was provided for Dr. Cary. 7.1 seconds of fluoroscopy time was utilized. 30 spot films of the right upper quadrant were received from the OR. FINDINGS: There are laparoscopic devices in place. There has been opacification of the common bile duct via cystic duct catheter. The duct does not appear to be dilated. There is evidence of contrast extending into the small bowel. However, there is a 4 mm rounded defect within the midportion of the duct. Whether this is related to a calculus or an air bubble is not certain. IMPRESSION: Fluoroscopic assistance was provided to Dr. Cary. Dictated by: Dictated on workstation # [id number]
== END 2018-12-08 14:45 | disposition home or self-care (01) ==
LOC: SDC 09:18
PROVIDERS: ATTEND Surgery
DX: K81.1 Chronic cholecystitis (principal); K82.8 Other specified diseases of gallbladder; J44.9 Chronic obstructive pulmonary disease, unspecified; E78.5 Hyperlipidemia, unspecified; I44.7 Left bundle-branch block, unspecified; I11.0 Hypertensive heart disease with heart failure; I50.9 Heart failure, unspecified; I25.10 Atherosclerotic heart disease of native coronary artery without angina pectoris; F41.9 Anxiety disorder, unspecified; F32.9 Major depressive disorder, single episode, unspecified; M50.30 Other cervical disc degeneration, unspecified cervical region; M47.812 Spondylosis without myelopathy or radiculopathy, cervical region; K64.9 Unspecified hemorrhoids; Z88.0 Allergy status to penicillin; Z88.2 Allergy status to sulfonamides; Z88.8 Allergy status to other drugs, medicaments and biological substances; Z79.899 Other long term (current) drug therapy; Z79.82 Long term (current) use of aspirin; Z80.0 Family history of malignant neoplasm of digestive organs; Z80.1 Family history of malignant neoplasm of trachea, bronchus and lung; Z80.3 Family history of malignant neoplasm of breast
CPT/HCPCS: 36415; 85025; 87081; 88304

== ENCOUNTER → 2018-12-21 | Outpatient (CLI) | payer MEDICARE, MEDICAID ==
[~2018-12-21] MED LIST changes: +ACHD5005 PO; +DOCU-143 PO; +HOLD METFORMIN - RECEIVED CONTRAST 20 ML VIAL IV SCH; +IOHEXOL 350 MG/ML 100 ML (OMNIPAQUE 350) VIAL IV ONE; +NS 100 ML (IVPB) BAG IV ONE; +RT-ALBUTEROL SULF 2.5 MG/3 ML PRE-MIX VIAL INH ONE
[2018-12-21 11:17] LABS: BUN/CREATININE RATIO 17; CREATININE SERUM 0.76 MG/DL (0.60-1.30); GFR ESTIMATED > 60
--- NOTE | 2018-12-21 12:11 | Diagnostic Imaging Report ---
PROCEDURE: CT chest with contrast only. TECHNIQUE: Multiple contiguous axial images were obtained through the chest after administration of intravenous contrast. Auto Exposure Controls were utilized during the CT exam to meet ALARA standards for radiation dose reduction. INDICATION: Shortness of breath and followup pulmonary nodules. COMPARISON: Correlation is made with prior CT chest from 09/20/2017. FINDINGS: No axillary lymphadenopathy is detected. A right paratracheal lymph node measures 10 mm compared with 11 mm on prior exam. Additional mildly prominent AP window and paratracheal nodes appear stable. There are some calcified lymph nodes in the right hilum and subcarinal region as well as left hilum consistent with prior granulomatous exposure. No pericardial or pleural fluid is identified. Subpleural interstitial fibrotic changes are again seen. 5 mm nodule in the right upper lobe, image 60 is stable. Nodule along the major fissure is stable at 3-4 mm, image #63. 5 mm right middle lobe nodule is stable, image #81. Posterolateral right lower lobe nodule is stable at 5 mm, image #99. No new pulmonary nodule is identified. Upper abdomen is unremarkable. IMPRESSION: Stable CT chest when compared with exam from 09/20/2017. The pulmonary nodules are stable. Mediastinal lymph nodes appear stable. There are chronic interstitial fibrotic changes which appear stable. Dictated by: Dictated on workstation # [id number]
== END ==
LOC: RAD 10:44
PROVIDERS: ATTEND Nurse Practitioner Family
DX: J43.9 Emphysema, unspecified (principal); I27.20 Pulmonary hypertension, unspecified; R91.8 Other nonspecific abnormal finding of lung field
CPT/HCPCS: 36415; 71260; 82565; 84520; 94060; 94726; 94729

== ENCOUNTER → 2019-03-15 | Outpatient (CLI) | payer MEDICARE, MEDICAID ==
[~2019-03-15] MED LIST changes: -HOLD METFORMIN - RECEIVED CONTRAST 20 ML VIAL IV SCH; -IOHEXOL 350 MG/ML 100 ML (OMNIPAQUE 350) VIAL IV ONE; -NS 100 ML (IVPB) BAG IV ONE; -RT-ALBUTEROL SULF 2.5 MG/3 ML PRE-MIX VIAL INH ONE
[2019-03-15 14:04] LABS: BASOPHILS % (AUTO) 0 % (0-10); EOSINOPHILS # (AUTO) 0.4 10^3/uL (0.0-0.3); EOSINOPHILS % (AUTO) 4 % (0-10); HEMATOCRIT 39 % (35-52); HEMOGLOBIN 12.5 G/DL (11.5-16.0); LYMPHOCYTES # (AUTO) 3.2 X 10^3 (1.0-4.0); LYMPHOCYTES % (AUTO) 33 % (12-44); MEAN CORPUSCULAR HEMOGLOBIN 28 PG (25-34); MEAN CORPUSCULAR HGB CONC 32 G/DL (32-36); MEAN CORPUSCULAR VOLUME 88 FL (80-99); MONOCYTES # (AUTO) 0.8 X 10^3 (0.0-1.0); MONOCYTES % (AUTO) 8 % (0-12); NEUTROPHILS # (AUTO) 5.3 X 10^3 (1.8-7.8); NEUTROPHILS % (AUTO) 54 % (42-75); PLATELET COUNT 322 10^3/uL (130-400); RED CELL DISTRIBUTION WIDTH 14.5 % (10.0-14.5); WHITE BLOOD COUNT 9.7 10^3/uL (4.3-11.0)
[2019-03-15 14:27] LABS: ALANINE AMINOTRANSFERASE 13 U/L (0-55); ALBUMIN 4.1 GM/DL (3.2-4.5); ALKALINE PHOSPHATASE 48 U/L (40-136); BILIRUBIN,TOTAL 0.5 MG/DL (0.1-1.0); BUN/CREATININE RATIO 19; CALCIUM 9.4 MG/DL (8.5-10.1); CARBON DIOXIDE 26 MMOL/L (21-32); CHLORIDE 103 MMOL/L (98-107); CREATININE SERUM 0.84 MG/DL (0.60-1.30); GFR ESTIMATED > 60; GLUCOSE 139 MG/DL (70-105); MAGNESIUM 1.9 MG/DL (1.6-2.4); POTASSIUM 3.8 MMOL/L (3.6-5.0); SODIUM 136 MMOL/L (135-145); TOTAL PROTEIN 7.8 GM/DL (6.4-8.2)
== END ==
LOC: LAB 13:42
PROVIDERS: ATTEND Internal Medicine Cardiovascular Disease
DX: E78.5 Hyperlipidemia, unspecified (principal); I25.10 Atherosclerotic heart disease of native coronary artery without angina pectoris; I10 Essential (primary) hypertension; I44.7 Left bundle-branch block, unspecified; J44.9 Chronic obstructive pulmonary disease, unspecified; I65.23 Occlusion and stenosis of bilateral carotid arteries
CPT/HCPCS: 36415; 80053; 80162; 83735; 84443; 85025

== ENCOUNTER 2019-09-16 10:32 | Emergency (ER) | payer MEDICARE, MEDICAID ==
[~2019-09-16] VITALS: Ht 162.5 cm; Wt 79.3 kg
[~2019-09-16 10:32] MED LIST changes: -CETI10TA20 PO; +CETI10TA21 PO; -DIGO250T PO; +DIGO250T3 PO; -OMEP20CA13 PO; +OMEP20CA18 PO
--- OUTSIDE RECORDS SUMMARY | 2019-09-16 10:37 | XMS REPORT ---
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 [facility] volume (Bld) [facility] [Entitic vol] ([id number]) automated blood platelet count (count/volume) on 2018-12-08 Platelets (Bld) 311 10*3/uL (no code) 150 - 450 [facility] [facility] [#/Vol] 10*3/uL [facility] ([id number]) automated blood neutrophils/100 leukocytes on 2018-12-08 Neutrophils/100 54 % (no code) 40 - 60 % [facility] WBC (Bld) [facility] ([id number]) automated blood neutrophil count (number/volume) on 2018-12-08 Neutrophils 4.8 10*3/uL (no code) 1.7 - 7 10*3/uL [facility] (Bld) [#/Vol] [facility] ([id number]) automated blood lymphocytes/100 leukocytes on 2018-12-08 Lymphocytes/100 33 % (no code) 20 - 40 % [facility] WBC (d) [facility] ([id number]) automated blood lymphocyte count (number/volume) on 2018-12-08 Lymphocytes 2.9 10*3/uL (no code) 0.9 - 2.9 [facility] (Bld) [#/Vol] 10*3/uL [facility] ([id number]) automated blood leukocyte count (number/volume) on 2018-12-08 WBC (Bld) 8.9 10*3/uL (no code) 3.5 - 10.5 [facility] [facility] [#/Vol] 10*3/uL [facility] ([id number]) automated blood eosinophils/100 leukocytes on 2018-12-08 Eosinophils/100 3 % (no code) 1 - 4 % [facility] WBC (d) [facility] ([id number]) automated blood basophils/100 leukocytes on 2018-12-08 Basophils/100 0 % (no code) 0.5 - 1 % [facility] WBC (d) [facility] ([id number]) automated blood basophil count (number/volume) on 2018-12-08 Basophils (Bld) 0.0 10*3/uL (no code) 0 - 0.3 10*3/uL [facility] [#/Vol] [facility] ([id number]) Vital Signs The data below is from unstructured sources Vital Response Date/Time Temperature (Fahrenheit) 98 degrees F (97.6 - 99.5) 01/08/2016 4:23pm Temperature (Calculated Celsius) 36. 6696 degrees C (36.4 - 37.5) 01/08/2016 4:23pm Temperature Source Tympanic 01/08/2016 4:23pm Pulse Rate (adult) 78 bpm (60 - 90) 01/08/2016 4:23pm Respiratory Rate 18 bpm (12 - 24) 01/08/2016 4:23pm O2 Sat by Pulse Oximetry 94 % (88 - 100) 01/08/2016 4:23pm Blood Pressure 175/89 mm Hg 01/08/2016 4:23pm Blood Pressure Mean 117 mm Hg 01/08/2016 4:23pm Pain Numeric Pain Scale 10-Worst Possible Pain 01/08/2016 4:23pm Height (Feet) 5 feet 4:23pm Height (Inches) 4 inches 01/08/2016 4:23pm Height (Calculated Centimeters) 162. 780459 cm 01/08/2016 4:23pm Weight (Pounds) 180 pounds 01/08/2016 4:23pm Weight (Calculated Kilograms) 81.646 627 kilograms 01/08/2016 4:23pm Capillary Refill Capillary Refill Less Than 3 Seconds 01/08/2016 4:23pm Height 5 ft 4 in Weight 180 lb Body Mass Index 30.9 kg/m^2 Vital Response Date/Time Temperature (Fahrenheit) 97.3 degree s F (97.6 - 99.5) Temperature (Calculated Celsius) 36. 47341 degrees C (36.4 - 37.5) Temperature Source Tympanic Pulse Rate (adult) 67 bpm (60 - 90) Respiratory Rate 18 bpm (12 - 24) O2 Sat by Pulse Oximetry 96 % (88 - 100) Blood Pressure 147/76 mm Hg Pain Pain Intensity 0 Height (Feet) 5 feet Height (Inches) 4.00 inches Height (Calculated Centimeters) 162. 306877 cm Weight (Pounds) 183 pounds Weight (Calculated Grams) 19802.405 gm Weight (Calculated Kilograms) 83.007 405 kilograms Calculated BMI 31.41 Vital Response Date/Time Temperature (Fahrenheit) 98.2 degree s F (97.6 - 99.5) 12/08/2014 9:30pm Temperature (Calculated Celsius) 36. 81362 degrees C (36.4 - 37.5) 12/08/2014 9:30pm Temperature Source Temporal 12/08/2014 9:30pm Pulse Rate (adult) 64 bpm (60 - 90) 12/09/2014 1:05am Respiratory Rate 16 bpm (12 - 24) 12/08/2014 9:30pm Blood Pressure 158/82 mm Hg 12/09/2014 1:05am Blood Pressure Mean 116 mm Hg 12/08/2014 9:30pm Pain Pain Intensity 5 2014 1:05am Height (Feet) 5 feet 9:30pm Height (Inches) 4 inches 12/08/2014 9:30pm Height (Calculated Centimeters) 162. 907720 cm 12/08/2014 9:30pm Weight (Pounds) 480 pounds 12/08/2014 9:30pm Weight (Calculated Kilograms) 217.72 4340 kilograms 12/08/2014 9:30pm Calculated BMI 82.38 9:30pm Vital Response Date/Time Temperature (Fahrenheit) 97.3 degree s F (97.6 - 99.5) 11/17/2016 1:45pm Temperature (Calculated Celsius) 36. 73286 degrees C (36.4 - 37.5) 11/17/2016 1:45pm Temperature Source Temporal 11/17/2016 1:45pm Pulse Rate (adult) 61 bpm (60 - 90) 11/17/2016 1:45pm Respiratory Rate 14 bpm (12 - 24) 11/17/2016 1:45pm O2 Sat by Pulse Oximetry 97 % (88 - 100) 11/17/2016 1:45pm Blood Pressure 133/65 mm Hg 11/17/2016 1:45pm Blood Pressure Mean 87 mm Hg 11/17/2016 1:45pm Pain Numeric Pain Scale 0-No Pain 11/17/2016 1:45pm Height (Feet) 5 feet 11/2016 7:26am Height (Inches) 4.00 inches 11/17/2016 7:26am Height (Calculated Centimeters) 162. 082979 cm 11/17/2016 7:26am Weight (Pounds) 173 pounds 11/17/2016 7:26am Weight (Ounces) 0.0 oz 0 11/17/2016 7:26am Weight (Calculated Grams) 49720.48 gm 11/17/2016 7:26am Weight (Calculated Kilograms) 78.471 481 kilograms 11/17/2016 7:26am Calculated BMI 29.7 11/2016 7:26am Capillary Refill Capillary Refill Less Than 3 Seconds 11/17/2016 1:45pm Blood pressure systolic 152 mmHg 2016-05-11 Blood pressure diastolic 82 mmHg 2016-05-11 Blood pressure systolic 123 mmHg 2017-04-08 Blood pressure diastolic 61 mmHg 2017-04-08 Blood pressure systolic 155 mmHg 2017-05-04 Blood pressure diastolic 83 mmHg 2017-05-04 Blood pressure systolic 134 mmHg 2017-12-09 Blood pressure diastolic 80 mmHg 2017-12-09 Blood pressure systolic 130 mmHg 2017-12-16 Blood pressure diastolic 74 mmHg 2017-12-16 Vital Response Date/Time Height (Feet) 5 feet 1:45pm Height (Inches) 4.00 inches 10/05/2018 1:45pm Height (Calculated Centimeters) 162. 989332 cm 10/05/2018 1:45pm Weight (Pounds) 173 pounds 10/05/2018 1:45pm Weight (Ounces) 0.0 oz 0 10/05/2018 1:45pm Weight (Calculated Grams) 66034.48 gm 10/05/2018 1:45pm Weight (Calculated Kilograms) 78.471 481 kilograms 10/05/2018 1:45pm Calculated BMI 29.7 09/11 1:45pm Vital Response Date/Time Temperature (Fahrenheit) 98.0 degree s F (97.6 - 99.5) 10/11/2018 11:14am Temperature (Calculated Celsius) 36. 94215 degrees C (36.4 - 37.5) 10/11/2018 11:14am Temperature Source Tympanic 10/11/2018 11:14am Pulse Rate (adult) 70 bpm (60 - 90) 10/11/2018 11:14am Respiratory Rate 18 bpm (12 - 24) 10/11/2018 11:14am O2 Sat by Pulse Oximetry 95 % (88 - 100) 10/11/2018 11:14am Blood Pressure 138/73 mm Hg 10/11/2018 11:14am Blood Pressure Mean 76 mm Hg (65 - 110) 10/11/2018 10:25am Pain Pasero Opioid-induced Sedation Scale (POSS) Awake and alert 10/11/2018 9:34am Numeric Pain Scale 0-No Pain 10/11/2018 11:14am Pain Intensity 0 2018 11:05am Height (Feet) 5 feet 05/2018 9:32am Height (Inches) 4.00 inches 10/11/2018 9:32am Height (Calculated Centimeters) 162. 935027 cm 10/11/2018 9:32am Weight (Pounds) 173 pounds 10/11/2018 9:32am Weight (Ounces) 0.0 oz 0 10/11/2018 9:32am Weight (Calculated Grams) 42181.48 gm 10/11/2018 9:32am Weight (Calculated Kilograms) 78.471 481 kilograms 10/11/2018 9:32am Calculated BMI 29.7 05/2018 9:32am Weight Measurement Method Standing Scale 10/11/2018 9:32am Vital Response Date/Time Height (Feet) 5 feet 1:49pm Height (Inches) 4.00 inches 11/29/2018 1:49pm Height (Calculated Centimeters) 162. 009015 cm 11/29/2018 1:49pm Weight (Pounds) 175 pounds 11/29/2018 1:49pm Weight (Ounces) 0.0 oz 0 11/29/2018 1:49pm Weight (Calculated Grams) 05109.67 gm 11/29/2018 1:49pm Weight (Calculated Kilograms) 79.378 666 kilograms 11/29/2018 1:49pm Calculated BMI 30.0 11/11 1:49pm Vital Response Date/Time Temperature (Fahrenheit) 96.9 degree s F (97.6 - 99.5) 12/08/2018 2:45pm Temperature (Calculated Celsius) 36. 82769 degrees C (36.4 - 37.5) 12/08/2018 2:15pm Temperature Source Temporal 12/08/2018 2:45pm Pulse Rate (adult) 52 bpm (60 - 90) 12/08/2018 2:45pm Respiratory Rate 20 bpm (12 - 24) 12/08/2018 2:45pm O2 Sat by Pulse Oximetry 95 % (88 - 100) 12/08/2018 2:45pm Blood Pressure 131/58 mm Hg 12/08/2018 2:45pm Blood Pressure Mean 101 mm Hg (65 - 110) 12/08/2018 1:15pm Pain Pasero Opioid-induced Sedation Scale (POSS) Awake and alert 12/08/2018 2:15pm Numeric Pain Scale 10-Worst Possible Pain 12/08/2018 2:45pm Pain Intensity 10 12/08 2:15pm Height (Feet) 5 feet 9:50am Height (Inches) 4.00 inches 12/08/2018 9:50am Height (Calculated Centimeters) 162. 237975 cm 12/08/2018 9:50am Weight (Pounds) 175 pounds 12/08/2018 9:50am Weight (Ounces) 0.0 oz 0 12/08/2018 9:50am Weight (Calculated Grams) 05065.67 gm 12/08/2018 9:50am Weight (Calculated Kilograms) 79.378 666 kilograms 12/08/2018 9:50am Calculated BMI 30.0 11/11 9:50am Vital Response Date/Time Temperature (Fahrenheit) 96.9 degree s F (97.6 - 99.5) 12/08/2018 2:45pm Temperature (Calculated Celsius) 36. 25857 degrees C (36.4 - 37.5) 12/08/2018 2:15pm Temperature Source Temporal 12/08/2018 2:45pm Pulse Rate (adult) 52 bpm (60 - 90) 12/08/2018 2:45pm Respiratory Rate 20 bpm (12 - 24) 12/08/2018 2:45pm O2 Sat by Pulse Oximetry 95 % (88 - 100) 12/08/2018 2:45pm Blood Pressure 131/58 mm Hg 12/08/2018 2:45pm Blood Pressure Mean 101 mm Hg (65 - 110) 12/08/2018 1:15pm Pain Pasero Opioid-induced Sedation Scale (POSS) Awake and alert 12/08/2018 2:15pm Numeric Pain Scale 10-Worst Possible Pain 12/08/2018 2:45pm Pain Intensity 10 12/08 2:15pm Height (Feet) 5 feet 9:50am Height (Inches) 4.00 inches 12/08/2018 9:50am Height (Calculated Centimeters) 162. 441255 cm 12/08/2018 9:50am Weight (Pounds) 175 pounds 12/08/2018 9:50am Weight (Ounces) 0.0 oz 0 12/08/2018 9:50am Weight (Calculated Grams) 17660.67 gm 12/08/2018 9:50am Weight (Calculated Kilograms) 79.378 666 kilograms 12/08/2018 9:50am Calculated BMI 30.0 11/11 9:50am Interventions No Information Plan of Treatment The data below is from unstructured sources Discharge Date 01/08/16 6:10pm Disposition 01 HOME, SELF-CARE Condition at Discharge Improved Instructions/Education Provided Ches t Pain (ED) Healthy Heart Diet (ED) Prescriptions See Medication Section [facility]errals [facility] SHYLA WALLACE DO Primary Care Physician TRISHA WANG MD FACP [facility] CCDS - Additional Instructions/Education LO TS OF CLEAR LIQUIDS TAKE YOUR MEDICATIONS PRESCRIBED FOLLOW UP WITH DR. WANG THIS WEEK FOR FURTHER CARE All discharge instructions reviewed with patient and/or family. Voiced understanding. Discharge Date 12/09/14 12:59am Disposition 01 HOME, SELF-CARE Condition at Discharge Improved Instructions/Education Provided Acut e Abdominal Pain (ED) Prescriptions See Medication Section [facility]errals [facility] Additional Instructions/Education Al l discharge instructions reviewed with patient and/or family. Voiced understanding. You may take Pepcid, or the generic famotidine, 20 mg twice daily for 7 days and then 20 mg daily thereafter as needed for stomach upset. Eat a bland diet. Follow-up with Dr. Wallace on Wednesday or Wednesday for recheck and further evaluation including possible referral back to Dr. Aden for further evaluation of your stomach problems. Return for worsening, fever, vomiting, weakness, breathing problems, sweating or other concerns as needed. Discharge Date 11/17/16 2:00pm Instructions/Education Provided Hear t Healthy Diet Prescriptions See Medication Section Activity Details Follow Up prn Reason:abhijeet/hygiene Prescriptions See Medication Section Activity Details Follow Up michelle Reason:abhijeet Activity Details Follow Up prn Reason:restorative Activity Details Follow Up prn Reason:filling #[id number] Activity Details Follow Up recall, prn Reason: Discharge Date 10/05/18 2:02pm Prescriptions See Medication Section Discharge Date 10/11/18 11:15am Instructions/Education Provided ANES THESIA INSTRUCTIONS POSTOP EGD-ESOPHAGOGASTRODUODENOSCOPY Prescriptions See Medication Section Discharge Date 11/29/18 3:32pm Prescriptions See Medication Section Discharge Date 12/08/18 2:45pm Instructions/Education Provided ANES THESIA INSTRUCTIONS POSTOP Cholecystectomy (DC) Prescriptions See Medication Section Discharge Date 12/08/18 2:45pm Instructions/Education Provided ANES THESIA INSTRUCTIONS POSTOP Cholecystectomy (DC) Prescriptions See Medication Section Goals No Information Social History No Information Functional Status The data below is from unstructured sources Query Response Date Papa rded Pasero Opioid-induced Sedation Scale (POSS) Awake and alert October 11, 2018 9:34am Query Response Date Papa rded Pasero Opioid-induced Sedation Scale (POSS) Awake and alert December 08, 2018 2:15pm Query Response Date Papa rded Pasero Opioid-induced Sedation Scale (POSS) Awake and alert December 08, 2018 2:15pm Mental Status No Information Encounters Encounter Normalized Encounter Encounter Diagnosis Care Provi elizabeth Organization Date Type 12-16-2017 (D-E/F/S) Dental caries on LEE NEARING (no [employer] SEMDCapsule Extraction/Filling/SSC smooth surface phone) DENTAL (no phone) penetrating into dentin 12-09-2017 (D-E/F/S) Encounter for dental LEE NEARING (no AVOB Extraction/Filling/SSC examination and phone) DENTAL (no phone) cleaning without abnormal findings 12-08-2018 Admission to day no information [facility] [employer] Work no organization name - surgery Phone: 12-08-2018 10-11-2018 Admission to day no information [employer] Work no organization name - surgery Phone: 10-11-2018 01-08-2016 Emergency department no information no name no organization name - patient visit 01-08-2016 12-08-2014 Emergency department no information no name no organization name - patient visit 12-08-2014 10-28-2010 Evaluation and no information no name no organ ization name - management of 10-29-2010 inpatient 09-19-2010 Evaluation and no information no name no organ ization name - management of 09-22-2010 inpatient 09-15-2010 Evaluation and no information no name no organ ization name - management of 09-19-2010 inpatient 02-22-2010 Evaluation and no information no name no organ ization name - management of 02-23-2010 inpatient 02-01-2018 Patient encounter no information no name no or ganization name 01-31-2018 Patient encounter no information no name no or ganization name 09-23-2017 Patient encounter no information no name no or ganization name 09-20-2017 Patient encounter no information no name no or ganization name 05-04-2017 Patient encounter no information no name no or ganization name 04-13-2017 Patient encounter no information no name no or ganization name 03-13-2017 Patient encounter no information no name no or ganization name 02-16-2017 Patient encounter no information no name no or ganization name - 04-12-2017 NEGATED Patient encounter no information no name no or ganization name 02-11-2017 02-02-2017 Patient encounter no information no name no or ganization name NEGATED Patient encounter no information no name no or ganization name 01-21-2017 01-14-2017 Patient encounter no information no name no or ganization name 01-12-2017 Patient encounter no information no name no or ganization name 01-10-2017 Patient encounter no information no name no or ganization name 01-07-2017 Patient encounter no information no name no or ganization name - 01-09-2017 11-17-2016 Patient encounter no information no name no or ganization name - 11-17-2016 10-06-2016 Patient encounter no information no name no or ganization name 08-25-2016 Patient encounter no information no name no or ganization name 08-13-2016 Patient encounter no information no name no or ganization name 02-24-2016 Patient encounter no information no name no or ganization name 01-23-2016 Patient encounter no information no name no or ganization name 01-22-2016 Patient encounter no information no name no or ganization name 01-17-2016 Patient encounter no information no name no or ganization name 01-14-2016 Patient encounter no information no name no or ganization name 10-03-2015 Patient encounter no information no name no or ganization name 02-20-2015 Patient encounter no information no name no or ganization name 09-12-2014 Patient encounter no information no name no or ganization name 01-31-2014 Patient encounter no information no name no or ganization name 01-30-2014 Patient encounter no information no name no or ganization name - 01-30-2014 12-21-2013 Patient encounter no information no name no or ganization name 08-14-2013 Patient encounter no information no name no or ganization name 07-05-2013 Patient encounter no information no name no or ganization name 05-24-2013 Patient encounter no information no name no or ganization name 03-21-2013 Patient encounter no information no name no or ganization name - 03-22-2013 03-01-2013 Patient encounter no information no name no or ganization name 02-16-2013 Patient encounter no information no name no or ganization name 02-09-2013 Patient encounter no information no name no or ganization name 09-19-2012 Patient encounter no information no name no or ganization name 08-09-2012 Patient encounter no information no name no or ganization name 2012 Patient encounter no information no name no or ganization name 08-02-2012 Patient encounter no information no name no or ganization name 02-08-2012 Patient encounter no information no name no or ganization name 08-14-2011 Patient encounter no information no name no or ganization name 08-07-2011 Patient encounter no information no name no or ganization name 07-06-2011 Patient encounter no information no name no or ganization name 02-09-2011 Patient encounter no information no name no or ganization name 11-27-2010 Patient encounter no information no name no or ganization name - 12-03-2010 10-14-2010 Patient encounter no information no name no or ganization name - 01-12-2011 10-07-2010 Patient encounter no information no name no or ganization name 10-01-2010 Patient encounter no information no name no or ganization name 09-26-2010 Patient encounter no information no name no or ganization name 09-11-2010 Patient encounter no information no name no or ganization name - 09-11-2010 09-04-2010 Patient encounter no information no name no or ganization name 2010 Patient encounter no information no name no or ganization name 07-04-2010 Patient encounter no information no name no or ganization name 05-09-2010 Patient encounter no information no name no or ganization name 04-09-2010 Patient encounter no information no name no or ganization name 11-05-2009 Patient encounter no information no name no or ganization name 08-01-2009 Patient encounter no information no name no or ganization name 06-12-2009 Patient encounter no information no name no or ganization name 06-03-2009 Patient encounter no information no name no or ganization name 05-24-2009 Patient encounter no information no name no or ganization name 03-14-2009 Patient encounter no information no name no or ganization name 08-15-2008 Patient encounter no information no name no or ganization name NEGATED Patient encounter no information no name no or ganization name 06-26-2008 06-12-2008 Patient encounter no information no name no or ganization name 02-15-2008 Patient encounter no information no name no or ganization name 11-15-2007 Patient encounter no information no name no or ganization name 08-22-2007 Patient encounter no information no name no or ganization name 06-15-2007 Patient encounter no information no name no or ganization name 06-09-2007 Patient encounter no information no name no or ganization name 04-18-2007 Patient encounter no information no name no or ganization name 01-26-2007 Patient encounter no information no name no or ganization name 07-06-2006 Patient encounter no information no name no or ganization name 05-19-2006 Patient encounter no information no name no or ganization name 04-22-2006 Patient encounter no information no name no or ganization name 04-07-2006 Patient encounter no information no name no or ganization name 03-16-2006 Patient encounter no information no name no or ganization name 12-15-2005 Patient encounter no information no name no or ganization name 09-28-2005 Patient encounter no information no name no or ganization name 09-22-2005 Patient encounter no information no name no or ganization name 09-15-2005 Patient encounter no information no name no or ganization name - 12-14-2005 08-28-2005 Patient encounter no information no name no or ganization name 06-25-2005 Patient encounter no information no name no or ganization name - 06-26-2005 05-13-2005 Patient encounter no information no name no or ganization name 06-21-2019 Patient encounter no information [facility] phone[facility] (no phone) 03-15-2019 Patient encounter no information no name no or ganization name procedure 12-21-2018 Patient encounter no information no name no or ganization name procedure 12-08-2018 Patient encounter no information no name no or ganization name - procedure 12-08-2018 12-08-2018 Patient encounter no information no name no or ganization name - procedure 12-08-2018 11-29-2018 Patient encounter no information [facility] D [facility] no organization name - procedure Phone: 11-29-2018 RE[facility] Haney ADEN 11-29-2018 Patient encounter no information no name no or ganization name - procedure 11-29-2018 11-21-2018 Patient encounter no information [facility] no organization name procedure [facility] [employer] 11-21-2018 Patient encounter no information no name no or ganization name procedure 11-01-2018 Patient encounter no information [facility]EN [facility] no organization name procedure 11-01-2018 Patient encounter no information no name no or ganization name procedure 10-11-2018 Patient encounter no information no name no or ganization name - procedure 10-11-2018 10-11-2018 Patient encounter no information no name no or ganization name - procedure 10-11-2018 10-05-2018 Patient encounter no information [facility] AD[facility] no organization name - procedure Phone: 10-05-2018 [facility] [employer] 10-05-2018 Patient encounter no information no name no or ganization name - procedure 10-05-2018 10-04-2018 Patient encounter no information no name no or ganization name procedure 10-04-2018 Patient encounter no information no name no or ganization name procedure 09-26-2018 Patient encounter no information [employer] Work no organization name procedure [facility] 09-26-2018 Patient encounter no information no name no or ganization name procedure 07-25-2018 Patient encounter no information no name no or ganization name procedure 07-25-2018 Patient encounter no information no name no or ganization name procedure 07-05-2018 Patient encounter no information no name no or ganization name procedure 06-03-2018 Patient encounter no information no name no or ganization name procedure 02-01-2018 Patient encounter no information no name no or ganization name procedure 01-31-2018 Patient encounter no information no name no or ganization name procedure 09-23-2017 Patient encounter no information no name no or ganization name procedure 09-20-2017 Patient encounter no information no name no or ganization name procedure 03-13-2017 Patient encounter no information no name no or ganization name procedure 02-09-2017 Patient encounter no information no name no or ganization name procedure 01-05-2017 Patient encounter no information no name no or ganization name procedure 12-22-2016 Patient encounter no information no name no or ganization name procedure 12-10-2016 Patient encounter no information no name no or ganization name procedure 12-08-2016 Patient encounter no information no name no or ganization name procedure 11-30-2016 Patient encounter no information no name no or ganization name procedure 11-17-2016 Patient encounter no information no name no or ganization name - procedure 11-17-2016 10-06-2016 Patient encounter no information no name no or ganization name procedure 10-06-2016 Patient encounter no information no name no or ganization name procedure 08-25-2016 Patient encounter no information no name no or ganization name procedure 08-13-2016 Patient encounter no information no name no or ganization name procedure 01-23-2016 Patient encounter no information no name no or ganization name procedure 01-22-2016 Patient encounter no information no name no or ganization name procedure 01-17-2016 Patient encounter no information no name no or ganization name procedure 01-14-2016 Patient encounter no information no name no or ganization name procedure 01-07-2016 Patient encounter no information no name no or ganization name procedure 09-12-2014 Patient encounter no information no name no or ganization name procedure 01-31-2014 Patient encounter no information no name no or ganization name procedure 01-30-2014 Patient encounter no information no name no or ganization name - procedure 01-30-2014 12-21-2013 Patient encounter no information no name no or ganization name procedure 08-14-2013 Patient encounter no information no name no or ganization name procedure 07-05-2013 Patient encounter no information no name no or ganization name procedure no information Pre-operative no name no organization name examination, unspecified NEGATED no information Pre-operative no name no organi zation name cardiovascular examination NEGATED no information Pre-procedural no name no organ ization name laboratory examination no information Dental examination no name no organiza tion name no information Encounter for dental no name no organi zation name examination and cleaning without abnormal findings no information Encounter for other no name no organiz ation name preprocedural examination Medical Equipment No Information Payers Normalized Payer Value Medicaid [id number] ([id number]) Self-pay [id number] ([id number]) Medicare [id number] ([id number]) Summary Purpose eClinicalWorks SubmissioneClinicalWorks SubmissioneClinicalWorks SubmissioneClinicalWorks Submission Advance Directives Directive Response Recor ded Date/Time Advance Directives No 9:34pm Health Care Power of Documentation Liaison Yes 12/08/14 9:34pm Organ Donor Yes 12/08/14 9:34pm Directive Response Recor ded Date/Time Advance Directives No 12:19pm Health Care Power of Documentation Liaison Yes 01/30/14 12:19pm Organ Donor Yes 01/30/14 12:19pm Resuscitation Status Full Code 01/30/14 12:19pm Directive Response Recor ded Date/Time Advance Directives No 9:34pm Health Care Power of Documentation Liaison Yes 12/08/14 9:34pm Organ Donor Yes 12/08/14 9:34pm Resuscitation Status Full Code 12/08/14 9:34pm Directive Response Recor ded Date/Time Advance Directives No 7:21am Health Care Power of Documentation Liaison Yes 11/17/16 7:21am Organ Donor Yes 11/17/16 7:21am Resuscitation Status Full Code 11/17/16 7:21am Directive Response Recor ded Date/Time Advance Directives No 7:21am Health Care Power of Documentation Liaison Yes 11/17/16 7:21am Organ Donor Yes 11/17/16 7:21am Directive Response Recor ded Date/Time Advance Directives Yes 0 10/05/18 1:46pm Health Care Power of Documentation Liaison Yes 10/05/18 1:46pm Organ Donor Yes 11/17/16 7:21am Resuscitation Status Full Code 10/05/18 1:46pm Directive Response Recor ded Date/Time Advance Directives Yes 0 10/11/18 9:37am Health Care Power of Documentation Liaison Yes 10/11/18 9:37am Organ Donor Yes 10/11/18 9:37am Resuscitation Status Full Code 10/11/18 9:37am Directive Response Recor ded Date/Time Advance Directives Yes 0 11/29/18 2:36pm Health Care Power of Documentation Liaison Yes 11/29/18 2:36pm Organ Donor Yes 11/29/18 2:36pm Resuscitation Status Full Code 11/29/18 2:36pm Directive Response Recor ded Date/Time Advance Directives Yes 0 12/08/18 9:50am Health Care Power of Documentation Liaison Yes 12/08/18 9:50am Organ Donor Yes 12/08/18 9:50am Resuscitation Status Full Code 12/08/18 9:50am Discharge Instructions No hospital discharge instructions.No hospital discharge instructions.No hospital discharge instructions. Patient Instructions Physician Instructions Follow Up/Plan F/u with Dr Wang in 2-3 weeks CARDIAC CATH DISCHARGE INSTRUCTIONS *Hold Metformin for 48 hours post heart cath. ACTIVITY * Go Home directly and rest. * Limit activity of the leg (or wrist if it was used) for 7 days including aerobics, swimming, jogging, bicycling, etc. * Restrict stair-climbing for 7 days if possible, if not, climb up with your non-cath leg, then bring together on the same step. * Avoid lifting, pushing, pulling or excessive movement of the affected extremity for 7 days. * Customary sexual activity may be resumed after 2 days-use caution not to use a position that strains or causes pain to the affected extremity. * No driving for 24 hours. * NO SMOKING. * Avoid straining for bowel movements for 7 days. * Gentle walking on level ground is allowed. * Returning to work will depend on the type of procedure and the results. Your doctor will discuss this with you. CALL YOUR DOCTOR FOR ANY OF THE FOLLOWING: *If bleeding from the puncture site occurs- Apply gentle pressure to site with clean cloth and call your doctor or EMS. * If a knot or lump forms under the skin, increases in size, or causes pain. * If bruising appears to be worsening or moving further down your leg instead of disappearing. * Temperature above 101 F. CARE OF YOUR GROIN INCISION; * Bruising or purple discoloration of the skin near the puncture site is common. * You may shower only, no bathtub bathing for 5 days. Be careful to avoid slipping as your leg may feel stiff. * If a closure device was used on your femoral artery, please see the attached guide regarding care of the device and your leg. * REMOVE the dressing from your groin the next day after your procedure in the shower. CARE OF YOUR WRIST INCISION; * Bruising or purple discoloration of the skin near the puncture site is common. * You may shower. * DO NOT submerge wrist. * Remove dressing in 24 hours. No hospital discharge instruction information available.No hospital discharge i nstruction information available.No hospital discharge instruction information a vailable.No hospital discharge instruction information available.No hospital dis charge instruction information available. Additional Source Comments This clinical document has been generated using [employer] software that has been certified by the Office of the National Coordinator for Health Information Technology (ONC 15.99.04.3023.[id number].[id number]) and the National Committee for Etiquette Teacher (NCQA, as an eMeasure certified technology). FOR RECORDS PERTAINING TO PATIENTS WHO ARE OR HAVE BEEN ENROLLED IN A CHEMICAL D EPENDENCY/SUBSTANCE ABUSE PROGRAM, SOME INFORMATION MAY BE OMITTED. This clinica l summary was aggregated from multiple sources. Caution should be exercised in using it in the provision of clinical care. This summary normalizes information from multiple sources, and as a consequence, information in this document may ma terially change the coding, format and clinical context of patient data. In eleanor tion, data may be omitted in some cases. CLINICAL DECISIONS SHOULD BE BASED ON T HE PRIMARY CLINICAL RECORDS. [employer] provides no warranty or guara ntee of the accuracy or completeness of information in this document.The followi ng information is based on time limited clinical information UNRECOGNIZED CONTENT PROVIDED BELOW FOR UNRECOGNIZED SECTION MEDICAL (GENERAL) HISTORY Type Description Date Medical History hypertensive heart disease Medical History joint replacement, k nee replacement Medical History blood thinners aspirin 81m g Medical History arthritis Medical History pt is taking [place] Surgical History knee replacement Left 2011 Surgical History female type surgeries 1971- 2009 Hospitalization History knee surgery 2010 Hospitalization History chest discom fort released with medication 2014 UNRECOGNIZED CONTENT PROVIDED BELOW FOR UNRECOGNIZED SECTION REASON FOR VISIT Restorative/twestRestorative - jahrens, CDA
--- OUTSIDE RECORDS SUMMARY | 2019-09-16 10:39 | XMS REPORT | Continuity of Care Document ---
Author Organization Unknown Address Unknown Phone Unavailable Allergies Active Description Code Type Severity Reaction Onset Reported/Identified Relationship to Patient Clinical Status Yes Penicillins [id number] Drug Aller gy Unknown CAN TAKE CEPHLA 06/18/2009 Yes Niacin, pravastatin, Lipitor, Fish Oil Niacin, pravastatin, Lipitor, Fish Oil Unknown N/A 12/08/2014 Yes Sulfa (Sulfonamide Antibiotics) [id number] Drug Allergy Unknown N/A 015 Yes Aibysmf-Cmw-Hmz Reductase Inhibitor [id number] Drug Allergy Severe MUSCLE WEAKNESS 11/29/2018 Yes Penicillins [id number] Drug Aller gy Moderate RASH/SWELLING 11/29/2018 Yes Sulfa (Sulfonamide Antibiotics) [id number] Drug Allergy Mild RASH 9 Medications There is no data. 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 02/23/2010 Ot 401.9 HYPE RTENSION NOS 02/23/2010 Ot 414.00 COR ON ATHEROSCLER NOS TYPE VESSEL, NATIV 02/23/2010 Ot 426.3 LEFT BB BLOCK NEC 02/23/2010 Ot 710.0 SYST LUPUS ERYTHEMATOSIS 02/23/[address] PAIN NOS 02/23/2010 Ot 787.91 PRASHANTH RRHEA 02/23/2010 Ot 789.00 ABD OMINAL PAIN, UNSPECIFIED SITE 02/23/2010 Ot V58.69 OTH MED,LT,CURRENT USE 09/11/2010 Ot 715.96 OST EOARTHROS NOS- L/LEG 09/11/2010 Ot V57.1 PHYS ICAL THERAPY NEC 09/19/2010 Ot 276.1 HYPO SMOLALITY 09/19/2010 Ot 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 09/19/2010 Ot 715.36 LOC OSTEOARTH NOS-L/LEG 09/19/2010 Ot V57.1 PHYS ICAL THERAPY NEC 09/19/2010 Ot V57.21 ENC OUNTER FOR OCCUPATIONAL THERAPY 09/22/2010 Ot 273.8 DIS PLAS PROTEIN MET NEC 09/22/2010 Ot 275.41 HYP OCALCEMIA 09/22/2010 Ot 276.1 HYPO SMOLALITY 09/22/2010 Ot 285.9 ANEM IA NOS 09/22/2010 Ot 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 09/22/2010 Ot 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 09/22/2010 Ot V43.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 JOINT REPLACEMENT STATUS 09/22/2010 Ot V54.81 AFT ERCARE FOLLOWING JOINT REPLACEMENT 09/22/2010 Ot V57.1 PHYS ICAL THERAPY NEC 09/22/2010 Ot V57.21 ENC OUNTER FOR OCCUPATIONAL THERAPY 10/29/2010 Ot 272.4 HYPE RLIPIDEMIA NEC/NOS 10/29/2010 Ot 401.9 HYPE RTENSION NOS 10/29/2010 Ot 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 48 REPETIT SLEEP INTRUSION 03/22/2013 ANA LAURA FERRER DO Ot 786. 09 RESPIRATORY ABNORM NEC 01/30/2014 REINIER ADEN DO Ot 535. 50 UNSP GASTRITIS GASTRODUODENITIS W/O ME 01/30/2014 REINIER ADEN DO Ot 535. 60 DUODENITIS, WITHOUT MENTION OF HEMORRHAG 01/30/2014 REINIER ADEN DO Ot 553. 3 DIAPHRAGMATIC HERNIA 01/30/2014 REINIER ADEN DO Ot 562. 10 DIVERTICULOSIS COLON (W/O MENT OF HEMORR 01/30/2014 REINIER ADEN DO Ot V16. 0 FAMILY HX-GI MALIGNANCY 01/30/2014 REINIER ADEN DO Ot V76. 51 SCREEN MAL NEOP-COLON 02/23/2014 FELIPE CASILLAS FACC, ALI FACP CCDS Ot 272.4 02/23/2014 FELIPE CASILLAS FACC, ALI FACP CCDS Ot 397.0 02/23/2014 FELIPE CASILLAS FACC, ALI FACP CCDS Ot 401.9 02/23/2014 FELIPE CASILLAS FACC, ALI FACP CCDS Ot 416.8 02/23/2014 FELIPE CASILLAS FACC, ALI FACP CCDS Ot 424.0 02/23/2014 FELIPE CASILLAS FACC, ALI FACP CCDS Ot 426.3 02/23/2014 FELIPE CASILLAS FACC, ALI FACP CCDS Ot 786.05 02/23/2014 FELIPE ROBERTSC, ALI FACP CCDS Ot V58.69 02/27/2014 SHYLA WALLACE DO Ot 789.01 02/27/2014 FELIPE CASILLAS FACC, ALI FACP CCDS Ot 272.4 02/27/2014 FELIPE CASILLAS FACC, ALI FACP CCDS Ot 397.0 02/27/2014 FELIPE ROBERTSC, ALI FACP CCDS Ot 401.9 02/27/2014 FELIPE CASILLAS FACC, ALI FACP CCDS Ot 416.8 02/27/2014 FELIPE CASILLAS FACC, ALI FACP CCDS Ot 424.0 02/27/2014 FELIPE ROBERTSC, ALI FACP CCDS Ot 426.3 02/27/2014 FELIPE ROBERTSC, ALI FACP CCDS Ot 786.05 02/27/2014 FELIPE ROBERTSC, ALI FACP CCDS Ot V58.69 02/27/2014 Ot [...] Ot V58.69 02/27/2014 MAME GIRARD DO Ot V76.1 2 02/27/2014 Ot 719.45 02/27/2014 Ot 719.45 02/27/2014 BAIMA, HELENE L ELECTRONIC PUBLISHER Ot 272.4 02/27/2014 BAIMA, HELENE L ELECTRONIC PUBLISHER Ot 272.4 02/27/2014 BAIMA, HELENE L ELECTRONIC PUBLISHER Ot 401.9 02/27/2014 BAIMA, HELENE L ELECTRONIC PUBLISHER Ot 414.00 02/27/2014 BAIMA, HELENE L ELECTRONIC PUBLISHER Ot 416.8 02/27/2014 BAIMA, HELENE L ELECTRONIC PUBLISHER Ot 426.3 02/27/2014 BAIMA, HELENE L ELECTRONIC PUBLISHER Ot 272.4 02/27/2014 BAIMA, HELENE L ELECTRONIC PUBLISHER Ot 401.9 02/27/2014 BAIMA, HELENE L ELECTRONIC PUBLISHER Ot 414.00 02/27/2014 BAIMA, HELENE L ELECTRONIC PUBLISHER Ot 416.8 02/27/2014 BAIMA, HELENE L ELECTRONIC PUBLISHER Ot 426.3 02/27/2014 CARISSA PEDRAZA, ANA LAURA M Ot 272. 4 02/27/2014 CARISSA PEDRAZA, ANA LAURA M Ot 278. 00 02/27/2014 CARISSA DO, ANA LAURA M Ot 401. 9 02/27/2014 CARISSA DO, ANA LAURA M Ot 414. 00 02/27/2014 CARISSA DO, ANA LAURA M Ot 416. 8 02/27/2014 CARISSA DO, ANA LAURA M Ot 426. 3 02/27/2014 CARISSA DO, ANA LAURA M Ot 428. 0 02/27/2014 CARISSA DO, ANA LAURA M Ot 493. 90 02/27/2014 CARISSA DO, ANA LAURA M Ot 780. 54 02/27/2014 SHELDON FERRER DOSON M Ot 786. 05 02/27/2014 SHYLA AWLLACE DO Ot 786.05 02/27/2014 [facility] 786.50 02/27/2014 [place]EVERLYW[place], HELENE L ELECTRONIC PUBLISHER Ot 272.4 02/27/2014 BAIMA, HELENE L ELECTRONIC PUBLISHER Ot 414.00 02/27/2014 BAIMA, HELENE L ELECTRONIC PUBLISHER Ot V58.69 02/27/2014 AMME GIRARD DO Ot V76.1 2 02/27/2014 SHYLA WALLACE DO Ot 789.01 02/27/2014 SHYLA WALLACE DO Ot 789.01 02/27/2014 SHYLA WALLACE DO Ot 553.3 02/27/2014 SHYLA WALLACE DO Ot 571.8 02/27/2014 SHYLA WALLACE DO Ot 789.1 02/27/2014 REINIER ADEN DO Ot V72. 84 02/27/2014 FELIPE CASILLAS FACC, ALI FACP CCDS [...] FAC, ALI FACP CCDS Ot V58.69 03/19/2014 FELIPE [...] FAC, ALI FACP CCDS Ot V58.69 03/19/2014 RODRIGO PEDRAZA SHYLA Lazcano Ot 553.3 03/19/2014 RODRIGO PEDRAZA SHYLA Lazcano Ot 571.8 03/19/2014 RODRIGO PEDRAZA SHYLA Lazcano Ot 789.1 03/19/2014 RODRIGO PEDRAZA SHYLA Lazcano Ot 789.01 03/19/2014 RODRIGO PEDRAZA SHYLA Lazcano Ot 789.01 03/21/2014 Ot 272.4 03/21/2014 Ot [...] Ot 414.00 03/21/2014 Ot V58.69 03/21/2014 MAME GIRARD DO Ot V76.1 2 03/21/2014 Ot 719.45 03/21/2014 Ot 719.45 03/21/2014 BAIMA, HELENE L ELECTRONIC PUBLISHER Ot 272.4 03/21/2014 BAIMA, HELENE L ELECTRONIC PUBLISHER Ot 272.4 03/21/2014 BAIMA, HELENE L ELECTRONIC PUBLISHER Ot 401.9 03/21/2014 BAIMA, HELENE L ELECTRONIC PUBLISHER Ot 414.00 03/21/2014 BAIMA, HELENE L ELECTRONIC PUBLISHER Ot 416.8 03/21/2014 BAIMA, HELENE L ELECTRONIC PUBLISHER Ot 426.3 03/21/2014 BAIMA, HELENE L ELECTRONIC PUBLISHER Ot 272.4 03/21/2014 BAIMA, HELENE L ELECTRONIC PUBLISHER Ot 401.9 03/21/2014 BAIMA, HELENE L ELECTRONIC PUBLISHER Ot 414.00 03/21/2014 HELENE TEJEDA L ELECTRONIC PUBLISHER Ot 416.8 03/21/2014 HELENE TEJEDA L ELECTRONIC PUBLISHER Ot 426.3 03/21/2014 CARISSA DOANA LAURA M Ot 272. 4 03/21/2014 CARISSA DO, ANA LAURA M Ot 278. 00 03/21/2014 CARISSA DO, ANA LAURA M Ot 401. 9 03/21/2014 CARISSA DO, ANA LAURA M Ot 414. 00 03/21/2014 CARISSA DO, ANA LAURA M Ot 416. 8 03/21/2014 CARISSA DO, ANA LAURA M Ot 426. 3 03/21/2014 CARISSA DO, ANA LAURA M Ot 428. 0 03/21/2014 CARISSA DO, ANA LAURA M Ot 493. 90 03/21/2014 CARISSA DO, ANA LAURA M Ot 780. 54 03/21/2014 CARISSA DOANA LAURA M Ot 786. 05 03/21/2014 [facility] DOSHYLA A Ot 786.05 03/21/2014 [facility] SHYLA A Ot 786.50 03/21/2014 HELENE TEJEDA ELECTRONIC PUBLISHER Ot 272.4 03/21/2014 HELENE TEJEDA ELECTRONIC PUBLISHER Ot 414.00 03/21/2014 HELENE TEJEDA ELECTRONIC PUBLISHER Ot V58.69 03/21/2014 SHAJI MAME Ot V76.1 2 03/21/2014 [facility] DO, SHYLA A Ot 789.01 03/21/2014 [facility] 789.01 03/21/2014 [facility] DO, SHYLA A Ot 553.3 03/21/2014 [facility] A Ot 571.8 03/21/2014 [facility] A Ot 789.1 03/21/2014 REINIER ADEN DO Ot V72. 84 03/21/2014 FELIPE CASILLAS FACC, ALI FACP CCDS Ot 272.4 03/21/2014 FELIPE CASILLAS FACC, ALI FACP CCDS Ot 401.9 03/21/2014 FELIPE CASILLAS FACC, ALI FACP CCDS Ot 416.8 03/21/2014 FELIPE CASILLAS FACC, ALI FACP CCDS Ot 426.3 03/21/2014 FELIPE CASILLAS FACC, ALI FACP CCDS Ot 786.05 03/21/2014 FELIPE MD FACC, ALI FACP CCDS Ot 786.59 03/21/2014 FELIPE MD FACC, ALI FACP CCDS Ot V58.69 03/21/2014 FELIPE MD FACC, ALI FACP CCDS Ot 272.4 03/21/2014 FELIPE MD FACC, ALI FACP CCDS Ot 397.0 03/21/2014 FELIPE MD FACC, ALI FACP CCDS Ot 401.9 03/21/2014 FELIPE MD FACC, ALI FACP CCDS Ot 416.8 03/21/2014 FELIPE MD FACC, ALI FACP CCDS Ot 424.0 03/21/2014 FELIPE CASILLAS FACC, ALI FACP CCDS Ot 426.3 03/21/2014 FELIPE MD FACC, ALI FACP CCDS Ot 786.05 03/21/2014 FELIPE CASILLAS FACC, ALI FACP CCDS Ot V58.69 04/27/2014 RODRIGO PEDRAZA, SHYLA A Ot 789.01 04/27/2014 RODRIGO PEDRAZA, SHYLA A Ot 789.01 04/27/2014 RODRIGO DO, SHYLA A Ot 553.3 04/27/2014 RODRIGO PEDRAZA, SHYLA A Ot 571.8 04/27/2014 RODRIGO PEDRAZA, SHYLA A Ot 789.1 04/27/2014 FELIPE CASILLAS [...] CCDS Ot 401.9 04/30/2014 FELIPE CASILLAS FACC, TRISHA FACP CCDS Ot 416.8 04/30/2014 FELIPE CASILLAS FACC, TRISHA FACP CCDS Ot 426.3 04/30/2014 FELIPE CASILLAS FACC, TRISHA FACP CCDS Ot 786.05 04/30/2014 FELIPE CASILLAS FACC, TRISHA FACP CCDS Ot 786.59 04/30/2014 FELIPE CASILLAS FACC, [facility] CCDS Ot V58.69 08/13/2014 Ot 272.4 08/13/2014 [...] Ot V58.69 08/13/2014 MAME GIRARD DO Ot V76.1 2 08/13/2014 Ot 719.45 08/13/2014 Ot 719.45 08/13/2014 BAIMA, HELENE L ELECTRONIC PUBLISHER Ot 272.4 08/13/2014 BAIMA, HELENE L ELECTRONIC PUBLISHER Ot 272.4 08/13/2014 BAIMA, HELENE L ELECTRONIC PUBLISHER Ot 401.9 08/13/2014 BAIMA, HELENE L ELECTRONIC PUBLISHER Ot 414.00 08/13/2014 BAIMA, HELENE L ELECTRONIC PUBLISHER Ot 416.8 08/13/2014 BAIMA, HELENE L ELECTRONIC PUBLISHER Ot 426.3 08/13/2014 BAIMA, HELENE L ELECTRONIC PUBLISHER Ot 272.4 08/13/2014 BAIMA, HELENE L ELECTRONIC PUBLISHER Ot 401.9 08/13/2014 BAIMA, HELENE L ELECTRONIC PUBLISHER Ot 414.00 08/13/2014 BAIMA, HELENE L ELECTRONIC PUBLISHER Ot 416.8 08/13/2014 BAIMA, HELENE L ELECTRONIC PUBLISHER Ot 426.3 08/13/2014 ANA LAURA FERRER DO Ot 272. 4 08/13/2014 ANA LAURA FERRER DO Ot 278. 00 08/13/2014 ANA LAURA FERRER DO Ot 401. 9 08/13/2014 ANA LAURA FERRER DO Ot 414. 00 08/13/2014 ANA LAURA FERRER DO Ot 416. 8 08/13/2014 ANA LAURA FERRER DO Ot 426. 3 08/13/2014 CARISSA DO, ANA LAURA Oscar Ot 428. 0 08/13/2014 CARISSA DO, ANA LAURA Oscar Ot 493. 90 08/13/2014 CARISSA DO, ANA LAURA Oscar Ot 780. 54 08/13/2014 CARISSA DO, ANA LAURA Oscar Ot 786. 05 08/13/2014 GELLENDER DO, SHYLA A Ot 786.05 08/13/2014 [facility] SHYLA A Ot 786.50 08/13/2014 HELENE TEJEDA ELECTRONIC PUBLISHER Ot 272.4 08/13/2014 BAIHELENE LUU L ELECTRONIC PUBLISHER Ot 414.00 08/13/2014 BAIHELENE LUU ELECTRONIC PUBLISHER Ot V58.69 08/13/2014 GIRARD DOMAME Ot V76.1 2 08/13/2014 [facility] DO, SHYLA A Ot 789.01 08/13/2014 [facility] A Ot 789.01 08/13/2014 [facility] A Ot 553.3 08/13/2014 [facility] DO, SHYLA A Ot 571.8 08/13/2014 [facility] A Ot 789.1 08/13/2014 FARWELL DOREINIER Medina Ot V72. 84 08/13/2014 FELIPE CASILLAS FACC, TRISHA FACP CCDS Ot 272.4 08/13/2014 FELIPE CASILLAS [...] CCDS Ot 416.8 08/13/2014 FELIPE CASILLAS FACC, TRISHA FACP CCDS Ot 424.0 08/13/2014 FELIPE CASILLAS FAC, [facility] FACP CCDS Ot 426.3 08/13/2014 FELIPE CASILLAS FAC, TRISHA FACP CCDS Ot 786.05 08/13/2014 FELIPE CASILLAS FACKelly, [facility] Ot V58.69 09/07/2014 Ot 414.01 09/07/2014 [...] Ot V58.69 09/07/2014 MAME GIRARD DO Ot V76.1 2 09/07/2014 Ot 719.45 09/07/2014 Ot 719.45 09/07/2014 BAIMA, HELENE L ELECTRONIC PUBLISHER Ot 272.4 09/07/2014 BAIMA, HELENE L ELECTRONIC PUBLISHER Ot 272.4 09/07/2014 BAIMA, HELENE L ELECTRONIC PUBLISHER Ot 401.9 09/07/2014 BAIMA, HELENE L ELECTRONIC PUBLISHER Ot 414.00 09/07/2014 BAIMA, HELENE L ELECTRONIC PUBLISHER Ot 416.8 09/07/2014 BAIMA, HELENE L ELECTRONIC PUBLISHER Ot 426.3 09/07/2014 BAIMA, HELENE L ELECTRONIC PUBLISHER Ot 272.4 09/07/2014 BAIMA, HELENE L ELECTRONIC PUBLISHER Ot 401.9 09/07/2014 BAIMA, HELENE L ELECTRONIC PUBLISHER Ot 414.00 09/07/2014 BAIMA, HELENE L ELECTRONIC PUBLISHER Ot 416.8 09/07/2014 BAIMA, HELENE L ELECTRONIC PUBLISHER Ot 426.3 09/07/2014 ANA LAURA FERRER DO Ot 272. 4 09/07/2014 ANA LAURA FERRER DO M Ot 278. 00 09/07/2014 ANA LAURA FERRER DO M Ot 401. 9 09/07/2014 ANA LAURA FERRER DO M Ot 414. 00 09/07/2014 ANA LAURA FERRER DO M Ot 416. 8 09/07/2014 ANA LAURA FERRER DO M Ot 426. 3 09/07/2014 ANA LAURA FERRER DO Ot 428. 0 09/07/2014 ANA LAURA FERRER DO M Ot 493. 90 09/07/2014 ANA LAURA FERRER DO Ot 780. 54 09/07/2014 ANA LAURA FERRER DO Ot 786. 05 09/07/2014 GELLENDER DO, SHYLA A Ot 786.05 09/07/2014 GELLENDER DO, SHYLA A Ot 786.50 09/07/2014 HELENE TEJEDA ELECTRONIC PUBLISHER Ot 272.4 09/07/2014 HELENE TEJEDA ELECTRONIC PUBLISHER Ot 414.00 09/07/2014 HELENE TEJEDA ELECTRONIC PUBLISHER Ot V58.69 09/07/2014 MAME GIRARD DO Ot V76.1 2 09/07/2014 GELLENDER DO, SHYLA A Ot 789.01 09/07/2014 GELLENDER DO, SHYLA A Ot 789.01 09/07/2014 GELLENDER DO, SHYLA A Ot 553.3 09/07/2014 GELLENDER DO, SHYLA A Ot 571.8 09/07/2014 GELLENDER DO, SHYLA A Ot 789.1 09/07/2014 ADEN REINIER PEDRAZA Ot V72. 84 09/07/2014 FELIPE CASILLAS FACC, ALI FACP CCDS [...] CCDS Ot 786.05 09/07/2014 FELIPE CASILLAS FACC, TRISHA VASQUEZ CCDS Ot V58.69 10/03/2014 MOISES SAUL Ot V76.1 2 10/25/2014 Ot 414.01 10/25/2014 Ot 786.09 10/25/2014 [...] Ot V58.69 10/25/2014 MAME GIRARD DO Ot V76.1 2 10/25/2014 Ot 719.45 10/25/2014 Ot 719.45 10/25/2014 BAIMA, HELENE L ELECTRONIC PUBLISHER Ot 272.4 10/25/2014 BAIMA, HELENE L ELECTRONIC PUBLISHER Ot 272.4 10/25/2014 BAIMA, HELENE L ELECTRONIC PUBLISHER Ot 401.9 10/25/2014 BAIMA, HELENE L ELECTRONIC PUBLISHER Ot 414.00 10/25/2014 BAIMA, HELENE L ELECTRONIC PUBLISHER Ot 416.8 10/25/2014 BAIMA, HELENE L ELECTRONIC PUBLISHER Ot 426.3 10/25/2014 BAIMA, HELENE L ELECTRONIC PUBLISHER Ot 272.4 10/25/2014 BAIMA, HELENE L ELECTRONIC PUBLISHER Ot 401.9 10/25/2014 BAIMA, HELENE L ELECTRONIC PUBLISHER Ot 414.00 10/25/2014 BAIMA, HELENE L ELECTRONIC PUBLISHER Ot 416.8 10/25/2014 BAIMA, HELENE L ELECTRONIC PUBLISHER Ot 426.3 10/25/2014 CARISSA DO, ANA LAURA M Ot 272. 4 10/25/2014 CARISSA DO, ANA LAURA M Ot 278. 00 10/25/2014 CARISSA DO, ANA LAURA M Ot 401. 9 10/25/2014 CARISSA DO, ANA LAURA M Ot 414. 00 10/25/2014 CARISSA DO, ANA LAURA M Ot 416. 8 10/25/2014 CARISSA DO, ANA LAURA M Ot 426. 3 10/25/2014 CARISSA DO, ANA LAURA M Ot 428. 0 10/25/2014 CARISSA DO, ANA LAURA M Ot 493. 90 10/25/2014 CARISSA DO, ANA LAURA M Ot 780. 54 10/25/2014 CARISSA PEDRAZA, ANA LAURA M Ot 786. 05 10/25/2014 SHYLA WALLACE DO Ot 786.05 10/25/2014 SHYLA WALLACE DO Ot 786.50 10/25/2014 BEVERLYHELENE LUU ELECTRONIC PUBLISHER Ot 272.4 10/25/2014 HELENE TEJEDA ELECTRONIC PUBLISHER Ot 414.00 10/25/2014 HELENE TEJEDA ELECTRONIC PUBLISHER Ot V58.69 10/25/2014 MAME GIRARD DO Ot V76.1 2 10/25/2014 GELLENDER DO, SHYLA Lazcano Ot 789.01 10/25/2014 GELLENDER DO, SHYLA Lazcano Ot 789.01 10/25/2014 GELLENDER DO, SHYLA A Ot 553.3 10/25/2014 GELLENDER DO, SHYLA Lazcano Ot 571.8 10/25/2014 GELLENDER DO, SHYLA Lazcano Ot 789.1 10/25/2014 REINIER ADEN DO Ot V72. 84 10/25/2014 FELIPE CASILLAS FACC, ALI FACP CCDS [...] FACP CCDS Ot V58.69 10/25/2014 MOISES SAUL ELECTRONIC PUBLISHER Ot V76.1 2 10/31/2014 Ot 414.01 10/31/2014 Ot 786.09 10/31/2014 [...] Ot V58.69 10/31/2014 MAME GIRARD DO Ot V76.1 2 10/31/2014 Ot 719.45 10/31/2014 Ot 719.45 10/31/2014 BAIMA, HELENE L ELECTRONIC PUBLISHER Ot 272.4 10/31/2014 BAIMA, HELENE L ELECTRONIC PUBLISHER Ot 272.4 10/31/2014 BAIMA, HELENE L ELECTRONIC PUBLISHER Ot 401.9 10/31/2014 BAIMA, HELENE L ELECTRONIC PUBLISHER Ot 414.00 10/31/2014 BAIMA, HELENE L ELECTRONIC PUBLISHER Ot 416.8 10/31/2014 BAIMA, HELENE L ELECTRONIC PUBLISHER Ot 426.3 10/31/2014 BAIMA, HELENE L ELECTRONIC PUBLISHER Ot 272.4 10/31/2014 BAIMA, HELENE L ELECTRONIC PUBLISHER Ot 401.9 10/31/2014 BAIMA, HELENE L ELECTRONIC PUBLISHER Ot 414.00 10/31/2014 BAIMA, HELENE L ELECTRONIC PUBLISHER Ot 416.8 10/31/2014 BAIMA, HELENE L ELECTRONIC PUBLISHER Ot 426.3 10/31/2014 CARISSA DO, ANA LAURA M Ot 272. 4 10/31/2014 CARISSA DO, ANA LAURA M Ot 278. 00 10/31/2014 CARISSA DO, ANA LAURA M Ot 401. 9 10/31/2014 CARISSA DO, ANA LAURA M Ot 414. 00 10/31/2014 CARISSA DO, ANA LAURA M Ot 416. 8 10/31/2014 CARISSA DO, ANA LAURA M Ot 426. 3 10/31/2014 CARISSA DO, ANA LAURA M Ot 428. 0 10/31/2014 CARISSA DO, ANA LAURA M Ot 493. 90 10/31/2014 CARISSA DO, ANA LAURA M Ot 780. 54 10/31/2014 CARISSA DO, ANA LAURA M Ot 786. 05 10/31/2014 GELLENDER DO, SHYLA A Ot 786.05 10/31/2014 GELLENDER DO, SHYLA A Ot 786.50 10/31/2014 BAIMA, HELENE L ELECTRONIC PUBLISHER Ot 272.4 10/31/2014 BAIMA, HELENE L ELECTRONIC PUBLISHER Ot 414.00 10/31/2014 BAIMA, HELENE L ELECTRONIC PUBLISHER Ot V58.69 10/31/2014 MAME GIRARD DO Ot V76.1 2 10/31/2014 [facility] SHYLA Lazcano Ot 789.01 10/31/2014 GELLENDER DO, SHYLA Lazcano Ot 789.01 10/31/2014 [facility], SHYLA Lazcano Ot 553.3 10/31/2014 [facility] DO, SHYLA Lazcano Ot 571.8 10/31/2014 [facility] SHYLA Lazcano Ot 789.1 10/31/2014 FARWELL DOREINIER Ot V72. 84 10/31/2014 FELIPE CASILLAS FACC, ALI FACP CCDS Ot 272.4 10/31/2014 FELIPE CASILLAS FACC, ALI FACP CCDS Ot 401.9 10/31/2014 FELIPE CASILLAS FACC, ALI FACP CCDS Ot 416.8 10/31/2014 FELIPE CASILLAS FACC, ALI FACP CCDS Ot 426.3 10/31/2014 FELIPE CASILLAS FACC, ALI FACP CCDS Ot 786.05 10/31/2014 FELIPE CASILLAS FACC, ALI FACP CCDS Ot 786.59 10/31/2014 FELIPE [...] FACP CCDS Ot 786.05 10/31/2014 FELIPE CASILLAS FACC, ALI FACP CCDS Ot V58.69 10/31/2014 MOISES SAUL ELECTRONIC PUBLISHER Ot V76.1 2 12/09/2014 CHAITANYA CASILLAS, SCOOTER Haney Ot 401.9 HYPERTENSION NOS 12/09/2014 CHAITANYA CASILLAS, SCOOTER Haney Ot 426.11 ATRIOVENT BLOCK-1ST DEGR 12/09/2014 SCOOTER TAVARES MD Ot 426.3 LEFT BB BLOCK NEC 12/09/2014 [...] EPIGASTRIC PAIN 12/27/2014 KIM ROCA MD Ot 715. 31 12/27/2014 KIM ROCA MD Ot 721. 0 01/08/2015 KIM ROCA MD Ot 715. 31 01/08/2015 KIM ROCA MD Ot 721. 0 01/29/2015 KIM ROCA MD Ot 715. 31 01/29/2015 KIM ROCA MD Ot 721. 0 01/29/2015 KIM ROCA MD Ot M19. 90 01/29/2015 KIM ROCA MD Ot M47.812 03/13/2015 [...] 04/01/2015 Ot 414.00 04/01/2015 Ot V58.69 04/01/2015 MAME GIRARD DO Ot V76.1 2 04/01/2015 Ot 719.45 04/01/2015 Ot 719.45 04/01/2015 BAIMA, HELENE L ELECTRONIC PUBLISHER Ot 272.4 04/01/2015 BAIMA, HELENE L ELECTRONIC PUBLISHER Ot 272.4 04/01/2015 BAIMA, HELENE L ELECTRONIC PUBLISHER Ot 401.9 04/01/2015 BAIMA, HELENE L ELECTRONIC PUBLISHER Ot 414.00 04/01/2015 BAIMA, HELENE L ELECTRONIC PUBLISHER Ot 416.8 04/01/2015 BAIMA, HELENE L ELECTRONIC PUBLISHER Ot 426.3 04/01/2015 BAIMA, HELENE L ELECTRONIC PUBLISHER Ot 272.4 04/01/2015 BAIMA, HELENE L ELECTRONIC PUBLISHER Ot 401.9 04/01/2015 BAIMA, HELENE L ELECTRONIC PUBLISHER Ot 414.00 04/01/2015 BAIMA, HELENE L ELECTRONIC PUBLISHER Ot 416.8 04/01/2015 BAIMA, HELENE L ELECTRONIC PUBLISHER Ot 426.3 04/01/2015 ANA LAURA FERRER DO Ot 272. 4 04/01/2015 ANA LAURA FERRER DO Ot 278. 00 04/01/2015 CARISSA DO, ANA LAURA M Ot 401. 9 04/01/2015 CARISSA DO, ANA LAURA M Ot 414. 00 04/01/2015 CARISSA DO, ANA LAURA M Ot 416. 8 04/01/2015 CARISSA DO, ANA LAURA M Ot 426. 3 04/01/2015 CARISSA DO, ANA LAURA M Ot 428. 0 04/01/2015 CARISSA DO, ANA LAURA M Ot 493. 90 04/01/2015 CARISSA DO, ANA LAURA M Ot 780. 54 04/01/2015 CARISSA DO, ANA LAURA Oscar Ot 786. 05 04/01/2015 GELLENDER DO, SHYLA Lazcano Ot 786.05 04/01/2015 [facility] A Ot 786.50 04/01/2015 BEVERLYBELL HELENE L ELECTRONIC PUBLISHER Ot 272.4 04/01/2015 BEVERLYHELENE LUU ELECTRONIC PUBLISHER Ot 414.00 04/01/2015 BEVER[place] HELENE L ELECTRONIC PUBLISHER Ot V58.69 04/01/2015 GIRARD MAME Ot V76.1 2 04/01/2015 [facility] DO, SHYLA A Ot 789.01 04/01/2015 [facility] DO, SHYLA A Ot 789.01 04/01/2015 [facility] DO, SHYLA A Ot 553.3 04/01/2015 [facility] DO, SHYLA A Ot 571.8 04/01/2015 [facility] DO, SHYLA A Ot 789.1 04/01/2015 ADEN DO REINIER Haney Ot V72. 84 04/01/2015 FELIPE CASILLAS FACC, TRISHA FACP CCDS Ot 272.4 04/01/2015 FELIPE CASILLAS FACC, ALI FACP CCDS Ot 401.9 04/01/2015 FELIPE CASILLAS FACC, ALI FACP CCDS Ot 416.8 04/01/2015 FELIPE CASILLAS FACC, ALI FACP CCDS Ot 426.3 04/01/2015 FELIPE ROBERTSC, ALI FACP CCDS Ot 786.05 04/01/2015 FELIPE CASILLAS FACC, ALI FACP CCDS Ot 786.59 04/01/2015 FELIPE CASILLAS FACC, ALI FACP CCDS Ot V58.69 04/01/2015 FELIPE CASILLAS FACC, ALI FACP CCDS Ot 272.4 04/01/2015 FELIPE CASILLAS [facility], ALI FACP CCDS Ot 397.0 04/01/2015 FELIPE CASILLAS FAC, ALI FACP CCDS Ot 401.9 04/01/2015 FELIPE CASILLAS [facility], ALI FACP CCDS Ot 416.8 04/01/2015 FELIPE CASILLAS [facility], ALI FACP CCDS Ot 424.0 04/01/2015 FELIPE CASILLAS [facility], ALI FACP CCDS Ot 426.3 04/01/2015 FELIPE CASILLAS [facility], ALI FACP CCDS Ot 786.05 04/01/2015 FELIPE CASILLAS [facility], ALI FACP CCDS Ot V58.69 04/01/2015 DORYS MOISESJanis CRONIN Ot V76.1 2 04/01/2015 CHANELLE CASILLAS, KIM Ruff Ot 715. 31 04/01/2015 KIM ROCA MD Ot 721. 0 04/01/2015 KIM ROCA MD Ot M19. 90 04/01/2015 KIM ROCA MD Ot M47.812 04/01/2015 MAME GIRARD DO Ot N81.9 04/01/2015 MAME GIRARD DO Ot R10.2 09/23/2015 MAME GIRARD DO Ot N81.9 FEMALE GENITAL PROLAPSE, UNSPECIFIED 09/23/2015 MAME GIRARD DO Ot R10.2 PELVIC AND PERINEAL PAIN 10/03/2015 SHYLA WALLACE DO Ot M79.604 PAIN IN RIGHT LEG 10/04/2015 SHYLA WALLACE DO Ot M79.604 PAIN IN RIGHT LEG 10/23/2015 SHYLA WALLACE DO Ot M79.604 PAIN IN RIGHT LEG 11/21/2015 SHYLA WALLACE DO Ot M79.604 PAIN IN RIGHT LEG 12/12/2015 Ot 599.0 URIN TRACT INFECTION NOS 01/07/2016 Ot V76.12 OTH SCREEN MAMMO- MALIGN NEOPLASM OF [place] 01/07/2016 Ot 429.3 CARD IOMEGALY 01/07/2016 Ot 715.36 LOC OSTEOARTH NOS-L/LEG 01/07/2016 Ot 791.9 ABN URINE FINDINGS NEC 01/07/2016 Ot V57.1 PHYS ICAL THERAPY NEC 01/07/2016 Ot V57.21 ENC OUNTER FOR OCCUPATIONAL THERAPY 01/07/2016 Ot V58.69 OTH MED,LT,CURRENT USE 01/07/2016 Ot V72.63 PRE -PROCEDURAL LABORATORY EXAMINATION 01/07/2016 Ot V72.81 [id number] CARDIOVASCULAR 01/07/2016 Ot V58.61 ANTICOAGULANTS,LT,CURRENT USE 01/07/2016 Ot V58.83 ENC OUNTER FOR THERAPEUTIC DRUG MONITORIN 01/07/2016 Ot V58.61 ANTICOAGULANTS,LT,CURRENT USE 01/07/2016 Ot V58.83 ENC OUNTER FOR THERAPEUTIC DRUG MONITORIN 01/07/2016 Ot 599.0 URIN TRACT INFECTION NOS 01/07/2016 Ot V58.61 ANTICOAGULANTS,LT,CURRENT USE 01/07/2016 Ot V58.83 ENC OUNTER FOR THERAPEUTIC DRUG MONITORIN 01/07/2016 Ot 272.4 HYPE RLIPIDEMIA NEC/NOS 01/07/2016 Ot V58.69 OTH MED,LT,CURRENT USE 01/07/2016 Ot V76.12 OTH SCREEN MAMMO- MALIGN NEOPLASM OF [place] 01/07/2016 Ot 272.4 HYPE RLIPIDEMIA NEC/NOS 01/07/2016 Ot 401.9 HYPE RTENSION NOS 01/07/2016 Ot 414.00 COR ON ATHEROSCLER NOS TYPE VESSEL, NATIV 01/07/2016 Ot V58.69 OTH MED,LT,CURRENT USE 01/07/2016 Ot 401.9 HYPE RTENSION NOS 01/07/2016 Ot V58.69 OTH MED,LT,CURRENT USE 01/07/2016 Ot 272.4 HYPE RLIPIDEMIA NEC/NOS 01/07/2016 Ot 401.9 HYPE RTENSION NOS 01/07/2016 Ot 414.00 COR ON ATHEROSCLER NOS TYPE VESSEL, NATIV 01/07/2016 Ot V58.69 OTH MED,LT,CURRENT USE 01/07/2016 MAME GIRARD DO Ot V76.1 2 OTH SCREEN MAMMO-MALIGN NEOPLASM OF [place] 01/07/2016 Ot 719.45 LAURA NT PAIN-PELVIS 01/07/2016 Ot 719.45 LAURA NT PAIN-PELVIS 01/07/2016 HELENE TEJEDA L ELECTRONIC PUBLISHER Ot 272.4 HYPERLIPIDEMIA NEC/NOS 01/07/2016 BAILUTHER LUUHER L ELECTRONIC PUBLISHER Ot 272.4 HYPERLIPIDEMIA NEC/NOS 01/07/2016 BAIMA, HELENE L ELECTRONIC PUBLISHER Ot 401.9 HYPERTENSION NOS 01/07/2016 BAIMA, HELENE L ELECTRONIC PUBLISHER Ot 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 NOS TYPE VESSEL, NATIV 01/07/2016 BAIMA, HELENE L ELECTRONIC PUBLISHER Ot 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 NEC 01/07/2016 BAIMA, HELENE L ELECTRONIC PUBLISHER Ot 426.3 LEFT BB BLOCK NEC 01/07/2016 BAIMA, HELENE L ELECTRONIC PUBLISHER Ot 272.4 HYPERLIPIDEMIA NEC/NOS 01/07/2016 BAIMA, HELENE L ELECTRONIC PUBLISHER Ot 401.9 HYPERTENSION NOS 01/07/2016 BAIMA, HELENE L ELECTRONIC PUBLISHER Ot 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 NOS TYPE VESSEL, NATIV 01/07/2016 BAIMA, HELENE L ELECTRONIC PUBLISHER Ot 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 NEC 01/07/2016 BAIMA, HELENE L ELECTRONIC PUBLISHER Ot 426.3 LEFT BB BLOCK NEC 01/07/2016 ANA LAURA FERRER DO Ot 272. 4 HYPERLIPIDEMIA NEC/NOS 01/07/2016 ANA LAURA FERRER DO Ot 278. 00 OBESITY, NOS 01/07/2016 ANA LAURA FERRER DO Ot 401. 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 3 LEFT BB BLOCK NEC 01/07/2016 ANA LAURA FERRER DO Ot 428. 0 CONGESTIVE HEART FAILURE NOS 01/07/2016 ANA LAURA FERRER DO Ot 493. 90 ASTHMA, UNSPECIFIED 01/07/2016 ANA LAURA FERRER DO Ot 780. 54 HYPERSOMNIA, UNSPECIFIED 01/07/2016 ANA LAURA FERRER DO Ot 786. 05 SHORTNESS OF BREATH 01/07/2016 SHYLA WALLACE DO Ot 786.05 SHORTNESS OF BREATH 01/07/2016 SHYLA WALLACE DO Ot 786.50 CHEST PAIN NOS 01/07/2016 BAIMA, HELENE L ELECTRONIC PUBLISHER Ot 272.4 HYPERLIPIDEMIA NEC/NOS 01/07/2016 BAIMA, HELENE L ELECTRONIC PUBLISHER Ot 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 NOS TYPE VESSEL, NATIV 01/07/2016 BAIMA, HELENE L ELECTRONIC PUBLISHER Ot V58.69 OT MED,LT,CURRENT USE 01/07/2016 MAME GIRARD DO Ot V76.1 2 OTH SCREEN MAMMO-MALIGN NEOPLASM OF [place] 01/07/2016 SHYLA WALLACE DO Ot 789.01 ABDOMINAL PAIN, RIGHT UPPER QUADRANT 01/07/2016 SHYLA WALLACE DO Ot 789.01 ABDOMINAL PAIN, RIGHT UPPER QUADRANT 01/07/2016 SHYLA WALLACE DO Ot 553.3 DIAPHRAGMATIC HERNIA 01/07/2016 [facility] Ot 571.8 CHRONIC LIVER DIS NEC 01/07/2016 SHYLA WALLACE DO Ot 789.1 HEPATOMEGALY 01/07/2016 REINIER ADEN DO Ot V72. 84 EXAM PRE-OPERATIVE NOS 01/07/2016 FELIPE CASILLAS FACC, ALI FACP [...] CASILLAS FACC, ALI FACP CCDS Ot V58.69 OT MED,LT,CURRENT USE 01/07/2016 FELIPE CASILLAS FACC, ALI FACP CCDS [...] 786.05 SHORTNESS OF BREATH 01/07/2016 FELIPE CASILLAS FAC, [facility] Ot V58.69 OTH MED,LT,CURRENT USE 01/07/2016 MOISES SAUL ELECTRONIC PUBLISHER Ot V76.1 2 OTH SCREEN MAMMO-MALIGN NEOPLASM OF [place] 01/07/2016 CHANELLE CASILLAS, KIM Ruff Ot 715. 31 LOC OSTEOARTH NOS-SHLDER 01/07/2016 KIM ROCA MD Ot 721. 0 CERVICAL SPONDYLOSIS 01/07/2016 KIM ROCA MD Ot M19. 90 UNSPECIFIED OSTEOARTHRITIS, UNSPECIFIED 01/07/2016 KIM ROCA MD Ot M47.812 SPONDYLOSIS W/O MYELOPATHY OR RADICULOPA 01/07/2016 MAME GIRARD DO Ot N81.9 FEMALE GENITAL PROLAPSE, UNSPECIFIED 01/07/2016 MAME GIRARD DO Ot R10.2 PELVIC AND PERINEAL PAIN 01/07/2016 SHYLA WALLACE DO Ot M79.604 PAIN IN RIGHT LEG 01/08/2016 SHYLA WALLACE DO Ot R06.02 SHORTNESS OF BREATH 01/08/2016 [facility] Ot R53.83 OTHER FATIGUE 01/08/2016 BALDEV DO, GILLIAN K Ot I10 ESSENTIAL (PRIMARY) HYPERTENSION 01/08/2016 BALDEV DO, GILLIAN K Ot R07.89 OTHER CHEST PAIN 01/08/2016 BALDEV DO, GILLIAN K Ot R53.83 OTHER FATIGUE 01/08/2016 BALDEV DO GILLIAN K Ot Z79.82 INTERMEDIATE (CURRENT) USE OF ASPIRIN 01/08/2016 BALDEV DO GILLIAN K Ot Z79.899 OTHER SAW CLEANER (CURRENT) DRUG THERAPY 01/09/2016 BALDEV DO, GILLIAN K Ot I10 ESSENTIAL (PRIMARY) HYPERTENSION 01/09/2016 BALDEV DO, GILLIAN K Ot R07.89 OTHER CHEST PAIN 01/09/2016 BALDEV DO, GILLIAN K Ot R53.83 OTHER FATIGUE 01/09/2016 BALDEV DO, GILLIAN K Ot Z79.82 SAW CLEANER (CURRENT) USE OF ASPIRIN 01/09/2016 BALDEV DO, GILLIAN K Ot Z79.899 OTHER SAW CLEANER (CURRENT) DRUG THERAPY 01/14/2016 Ot V76.12 OTH SCREEN MAMMO- MALIGN NEOPLASM OF [place] 01/14/2016 Ot 429.3 CARD IOMEGALY 01/14/2016 Ot 715.36 LOC OSTEOARTH NOS-L/LEG 01/14/2016 Ot 791.9 ABN URINE FINDINGS NEC 01/14/2016 Ot V57.1 PHYS ICAL THERAPY NEC 01/14/2016 Ot V57.21 ENC OUNTER FOR OCCUPATIONAL THERAPY 01/14/2016 Ot V58.69 OTH MED,LT,CURRENT USE 01/14/2016 Ot V72.63 PRE -PROCEDURAL LABORATORY EXAMINATION 01/14/2016 Ot V72.81 [id number] CARDIOVASCULAR 01/14/2016 Ot V58.61 ANTICOAGULANTS,LT,CURRENT USE 01/14/2016 Ot V58.83 ENC OUNTER FOR THERAPEUTIC DRUG MONITORIN 01/14/2016 Ot V58.61 ANTICOAGULANTS,LT,CURRENT USE 01/14/2016 Ot V58.83 ENC OUNTER FOR THERAPEUTIC DRUG MONITORIN 01/14/2016 Ot 599.0 URIN TRACT INFECTION NOS 01/14/2016 Ot V58.61 ANTICOAGULANTS,LT,CURRENT USE 01/14/2016 Ot V58.83 ENC OUNTER FOR THERAPEUTIC DRUG MONITORIN 01/14/2016 Ot 272.4 HYPE RLIPIDEMIA NEC/NOS 01/14/2016 Ot V58.69 OTH MED,LT,CURRENT USE 01/14/2016 Ot V76.12 OTH SCREEN MAMMO- MALIGN NEOPLASM OF [place] 01/14/2016 Ot 272.4 HYPE RLIPIDEMIA NEC/NOS 01/14/2016 Ot 401.9 HYPE RTENSION NOS 01/14/2016 Ot 414.00 COR ON ATHEROSCLER NOS TYPE VESSEL, NATIV 01/14/2016 Ot V58.69 OTH MED,LT,CURRENT USE 01/14/2016 Ot 401.9 HYPE RTENSION NOS 01/14/2016 Ot V58.69 OTH MED,LT,CURRENT USE 01/14/2016 Ot 272.4 HYPE RLIPIDEMIA NEC/NOS 01/14/2016 Ot 401.9 HYPE RTENSION NOS 01/14/2016 Ot 414.00 COR ON ATHEROSCLER NOS TYPE VESSEL, NATIV 01/14/2016 Ot V58.69 OTH MED,LT,CURRENT USE 01/14/2016 MAME GIRARD DO Ot V76.1 2 OTH SCREEN MAMMO-MALIGN NEOPLASM OF [place] 01/14/2016 Ot 719.45 LAURA NT PAIN-PELVIS 01/14/2016 Ot 719.45 LAURA NT PAIN-PELVIS 01/14/2016 BAIMA, HELENE L ELECTRONIC PUBLISHER Ot 272.4 HYPERLIPIDEMIA NEC/NOS 01/14/2016 BAIMA, HELENE L ELECTRONIC PUBLISHER Ot 272.4 HYPERLIPIDEMIA NEC/NOS 01/14/2016 BAIMA, HELENE L ELECTRONIC PUBLISHER Ot 401.9 HYPERTENSION NOS 01/14/2016 BAIMA, HELENE L ELECTRONIC PUBLISHER Ot 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 NOS TYPE VESSEL, NATIV 01/14/2016 BAIMA, HELENE L ELECTRONIC PUBLISHER Ot 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 NEC 01/14/2016 BAIMA, HELENE L ELECTRONIC PUBLISHER Ot 426.3 LEFT BB BLOCK NEC 01/14/2016 BAIMA, HELENE L ELECTRONIC PUBLISHER Ot 272.4 HYPERLIPIDEMIA NEC/NOS 01/14/2016 BAIMA, HELENE L ELECTRONIC PUBLISHER Ot 401.9 HYPERTENSION NOS 01/14/2016 BAIMA, HELENE L ELECTRONIC PUBLISHER Ot 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 4 HYPERLIPIDEMIA NEC/NOS 01/14/2016 ANA LAURA FERRER DO Ot 278. 00 OBESITY, NOS 01/14/2016 ANA LAURA FERRER DO Ot 401. 9 HYPERTENSION NOS 01/14/2016 ANA LAURA FERRER DO Ot 414. 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 3 LEFT BB BLOCK NEC 01/14/2016 ANA LAURA FERRER DO Ot 428. 0 CONGESTIVE HEART FAILURE NOS 01/14/2016 ANA LAURA FERRER DO Ot 493. 90 ASTHMA, UNSPECIFIED 01/14/2016 ANA LAURA FERRER DO Ot 780. 54 HYPERSOMNIA, UNSPECIFIED 01/14/2016 ANA LAURA FERRER DO Ot 786. 05 SHORTNESS OF BREATH 01/14/2016 GELLENDER DO, SHYLA A Ot 786.05 SHORTNESS OF BREATH 01/14/2016 HSYLA WALLACE DO Ot 786.50 CHEST PAIN NOS 01/14/2016 BEVERLYHELENE LUU Tab ELECTRONIC PUBLISHER Ot 272.4 HYPERLIPIDEMIA NEC/NOS 01/14/2016 HELENE TEJEDA ELECTRONIC PUBLISHER Ot 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 NOS TYPE VESSEL, NATIV 01/14/2016 HELENE ETJEDA ELECTRONIC PUBLISHER Ot V58.69 OTH MED,LT,CURRENT USE 01/14/2016 MAME GIRARD DO Ot V76.1 2 OTH SCREEN MAMMO-MALIGN NEOPLASM OF [place] 01/14/2016 SHYLA WALLACE DO Ot 789.01 ABDOMINAL PAIN, RIGHT UPPER QUADRANT 01/14/2016 SHYLA WALLACE DO Ot 789.01 ABDOMINAL PAIN, RIGHT UPPER QUADRANT 01/14/2016 SHYLA WALLACE DO Ot 553.3 DIAPHRAGMATIC HERNIA 01/14/2016 SHYLA WALLACE DO Ot 571.8 CHRONIC LIVER DIS NEC 01/14/2016 SHYLA WALLACE DO Ot 789.1 HEPATOMEGALY 01/14/2016 ADENREINIER DE OLIVEIRA DO [place] Ot V72. 84 EXAM PRE-OPERATIVE NOS 01/14/2016 FELIPE CASILLAS FACC, TRISHA FACP CCDS Ot 272.4 HYPERLIPIDEMIA NEC/NOS 01/14/2016 [...] V58.69 OTH MED,LT,CURRENT USE 01/14/2016 FELIPE CASILLAS FACC ALI FACP CCDS Ot 272.4 HYPERLIPIDEMIA NEC/NOS 01/14/2016 FELIPE CASILLAS FACC, ALI FACP CCDS Ot 397.0 TRICUSPID VALVE DISEASE 01/14/2016 FELIPE CASILLAS FACC, ALI FACP CCDS Ot 401.9 HYPERTENSION NOS 01/14/2016 FELIPE CASILLAS FACC, TRISHA ROBERTSP CCDS Ot 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 NEC 01/14/2016 FELIPE CASILLAS FACC, TRISHA FACP CCDS Ot 424.0 MITRAL VALVE DISORDER 01/14/2016 FELIPE CASILLAS FACC, TRISHA FACP CCDS Ot 426.3 LEFT BB BLOCK NEC 01/14/2016 FELIPE CASILLAS FACC, TRISHA FACP CCDS Ot 786.05 SHORTNESS OF BREATH 01/14/2016 FELIPE CASILLAS FACC, TRISHA FACP CCDS Ot V58.69 OTH MED,LT,CURRENT USE 01/14/2016 DORYS MOISES Harrison CRONIN Ot V76.1 2 OTH SCREEN MAMMO-MALIGN NEOPLASM OF [place] 01/14/2016 CHANELLE CASILLAS, KIM Ruff Ot 715. 31 LOC OSTEOARTH NOS-SHLDER 01/14/2016 KIM ROCA MD Ot 721. 0 CERVICAL SPONDYLOSIS 01/14/2016 KIM ROCA MD Ot M19. 90 UNSPECIFIED OSTEOARTHRITIS, UNSPECIFIED 01/14/2016 KIM ROCA MD Ot M47.812 SPONDYLOSIS W/O MYELOPATHY OR RADICULOPA 01/14/2016 MAME GIRARD DO Ot N81.9 FEMALE GENITAL PROLAPSE, UNSPECIFIED 01/14/2016 MAME GIRARD DO Ot R10.2 PELVIC AND PERINEAL PAIN 01/14/2016 SHYLA WALLACE DO Ot M79.604 PAIN IN RIGHT LEG 01/14/2016 SHYLA WALLACE DO Ot R06.02 SHORTNESS OF BREATH 01/14/2016 SHYLA WALLACE DO Ot R53.83 OTHER FATIGUE 01/15/2016 Ot V76.12 OTH SCREEN MAMMO- MALIGN NEOPLASM OF [place] 01/15/2016 Ot 429.3 CARD IOMEGALY 01/15/2016 Ot 715.36 LOC OSTEOARTH NOS-L/LEG 01/15/2016 Ot 791.9 ABN URINE FINDINGS NEC 01/15/2016 Ot V57.1 PHYS ICAL THERAPY NEC 01/15/2016 Ot V57.21 ENC OUNTER FOR OCCUPATIONAL THERAPY 01/15/2016 Ot V58.69 OTH MED,LT,CURRENT USE 01/15/2016 Ot V72.63 PRE -PROCEDURAL LABORATORY EXAMINATION 01/15/2016 Ot V72.81 [id number] CARDIOVASCULAR 01/15/2016 Ot V58.61 ANTICOAGULANTS,LT,CURRENT USE 01/15/2016 Ot V58.83 ENC OUNTER FOR THERAPEUTIC DRUG MONITORIN 01/15/2016 Ot V58.61 ANTICOAGULANTS,LT,CURRENT USE 01/15/2016 Ot V58.83 ENC OUNTER FOR THERAPEUTIC DRUG MONITORIN 01/15/2016 Ot 599.0 URIN TRACT INFECTION NOS 01/15/2016 Ot V58.61 ANTICOAGULANTS,LT,CURRENT USE 01/15/2016 Ot V58.83 ENC OUNTER FOR THERAPEUTIC DRUG MONITORIN 01/15/2016 Ot 272.4 HYPE RLIPIDEMIA NEC/NOS 01/15/2016 Ot V58.69 OTH MED,LT,CURRENT USE 01/15/2016 Ot V76.12 OTH SCREEN MAMMO- MALIGN NEOPLASM OF [place] 01/15/2016 Ot 272.4 HYPE RLIPIDEMIA NEC/NOS 01/15/2016 Ot 401.9 HYPE RTENSION NOS 01/15/2016 Ot 414.00 COR ON ATHEROSCLER NOS TYPE VESSEL, NATIV 01/15/2016 Ot V58.69 OTH MED,LT,CURRENT USE 01/15/2016 Ot 401.9 HYPE RTENSION NOS 01/15/2016 Ot V58.69 OTH MED,LT,CURRENT USE 01/15/2016 Ot 272.4 HYPE RLIPIDEMIA NEC/NOS 01/15/2016 Ot 401.9 HYPE RTENSION NOS 01/15/2016 Ot 414.00 COR ON ATHEROSCLER NOS TYPE VESSEL, NATIV 01/15/2016 Ot V58.69 OTH MED,LT,CURRENT USE 01/15/2016 MAME GIRARD DO Ot V76.1 2 OTH SCREEN MAMMO-MALIGN NEOPLASM OF [place] 01/15/2016 Ot 719.45 LAURA NT PAIN-PELVIS 01/15/2016 Ot 719.45 LAURA NT PAIN-PELVIS 01/15/2016 BAIMA, HELENE L ELECTRONIC PUBLISHER Ot 272.4 HYPERLIPIDEMIA NEC/NOS 01/15/2016 BAIMA, HELENE L ELECTRONIC PUBLISHER Ot 272.4 HYPERLIPIDEMIA NEC/NOS 01/15/2016 BAIMA, HELENE L ELECTRONIC PUBLISHER Ot 401.9 HYPERTENSION NOS 01/15/2016 BAIMA, HELENE L ELECTRONIC PUBLISHER Ot 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 NOS TYPE VESSEL, NATIV 01/15/2016 BAIMA, HELENE L ELECTRONIC PUBLISHER Ot 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 NEC 01/15/2016 BAIMA, HELENE L ELECTRONIC PUBLISHER Ot 426.3 LEFT BB BLOCK NEC 01/15/2016 BAIMA, HELENE L ELECTRONIC PUBLISHER Ot 272.4 HYPERLIPIDEMIA NEC/NOS 01/15/2016 BAIMA, HELENE L ELECTRONIC PUBLISHER Ot 401.9 HYPERTENSION NOS 01/15/2016 BAIMA, HELENE L ELECTRONIC PUBLISHER Ot 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 NOS TYPE VESSEL, NATIV 01/15/2016 BAIMA, HELENE L ELECTRONIC PUBLISHER Ot 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 NEC 01/15/2016 BAIMA, HELENE L ELECTRONIC PUBLISHER Ot 426.3 LEFT BB BLOCK NEC 01/15/2016 ANA LAURA FERRER DO Ot 272. 4 HYPERLIPIDEMIA NEC/NOS 01/15/2016 ANA LAURA FERRER DO Ot 278. 00 OBESITY, NOS 01/15/2016 ANA LAURA FERRER DO Ot 401. 9 HYPERTENSION NOS 01/15/2016 ANA LAURA FERRER DO Ot 414. 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 3 LEFT BB BLOCK NEC 01/15/2016 ANA LAURA FERRER DO Ot 428. 0 CONGESTIVE HEART FAILURE NOS 01/15/2016 ANA LAURA FERRER DO Ot 493. 90 ASTHMA, UNSPECIFIED 01/15/2016 ANA LAURA FERRER DO Ot 780. 54 HYPERSOMNIA, UNSPECIFIED 01/15/2016 ANA LAURA FERRER DO Ot 786. 05 SHORTNESS OF BREATH 01/15/2016 SHYLA WALLACE DO Ot 786.05 SHORTNESS OF BREATH 01/15/2016 SHYLA WALLACE DO Ot 786.50 CHEST PAIN NOS 01/15/2016 NIKHIL, HELENE L ELECTRONIC PUBLISHER Ot 272.4 HYPERLIPIDEMIA NEC/NOS 01/15/2016 BAIMA, HELENE L ELECTRONIC PUBLISHER Ot 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 NOS TYPE VESSEL, NATIV 01/15/2016 BAIMA, HELENE L ELECTRONIC PUBLISHER Ot V58.69 OTH MED,LT,CURRENT USE 01/15/2016 MAME GIRARD DO Ot V76.1 2 OTH SCREEN MAMMO-MALIGN NEOPLASM OF [place] 01/15/2016 SHYLA WALLACE DO Ot 789.01 ABDOMINAL PAIN, RIGHT UPPER QUADRANT 01/15/2016 SHYLA WALLACE DO Ot 789.01 ABDOMINAL PAIN, RIGHT UPPER QUADRANT 01/15/2016 SHYLA WALLACE DO Ot 553.3 DIAPHRAGMATIC HERNIA 01/15/2016 SHYLA WALLACE DO Ot 571.8 CHRONIC LIVER DIS NEC 01/15/2016 SHYLA WALLACE DO Ot 789.1 HEPATOMEGALY 01/15/2016 REINIER ADEN DO Ot V72. 84 EXAM PRE-OPERATIVE NOS 01/15/2016 FELIPE CASILLAS FACC, [...] Ot 786.59 CHEST PAIN NEC 01/15/2016 FELIPE CASILLAS FACC, ALI FACP CCDS Ot V58.69 OTH MED,LT,CURRENT USE 01/15/2016 FELIPE CASILLAS FACC, ALI FACP CCDS Ot 272.4 HYPERLIPIDEMIA NEC/NOS 01/15/2016 FELIPE CASILLAS FACC, ALI FACP CCDS Ot 397.0 TRICUSPID VALVE DISEASE 01/15/2016 FELIPE CASILLAS FACC, ALI FACP CCDS Ot 401.9 HYPERTENSION NOS 01/15/2016 FELIPE CASILLAS FACC, ALI FACP CCDS Ot 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 NEC 01/15/2016 FELIPE CASILLAS FACC, ALI FACP CCDS Ot 424.0 MITRAL VALVE DISORDER 01/15/2016 FELIPE CASILLAS FACC, ALI FACP CCDS Ot 426.3 LEFT BB BLOCK NEC 01/15/2016 FELIPE CASILLAS FACC, ALI FACP CCDS Ot 786.05 SHORTNESS OF BREATH 01/15/2016 FELIPE CASILLAS FACC, ALI FACP CCDS Ot V58.69 OTH MED,LT,CURRENT USE 01/15/2016 MOISES SAUL ELECTRONIC PUBLISHER Ot V76.1 2 OTH SCREEN MAMMO-MALIGN NEOPLASM OF [place] 01/15/2016 CHANELLE CASILLAS, KIM Ruff Ot 715. 31 LOC OSTEOARTH NOS-SHLDER 01/15/2016 CHANELLE CASILLAS, KIM Ruff Ot 721. 0 CERVICAL SPONDYLOSIS 01/15/2016 CHANELLE CASILLAS, KIM Ruff Ot M19. 90 UNSPECIFIED OSTEOARTHRITIS, UNSPECIFIED 01/15/2016 CHANELLE CASILLAS, KIM Ruff Ot M47.812 SPONDYLOSIS W/O MYELOPATHY OR RADICULOPA 01/15/2016 GIRARD DO MAME C Ot N81.9 FEMALE GENITAL PROLAPSE, UNSPECIFIED 01/15/2016 GIRARD DO MAME C Ot R10.2 PELVIC AND PERINEAL PAIN 01/15/2016 GELLENDER DO, SHYLA Lazcano Ot M79.604 PAIN IN RIGHT LEG 01/15/2016 GELLENDER DO, SHYLA A Ot R06.02 SHORTNESS OF BREATH 01/15/2016 GELLENDER DO, SHYLA A Ot R53.83 OTHER FATIGUE 01/15/2016 GELLENDER DO, SHYLA A Ot R06.02 SHORTNESS OF BREATH 01/15/2016 GELLENDER DO, SHYLA A Ot R53.83 OTHER FATIGUE 01/20/2016 BAIMA, HELENE L ELECTRONIC PUBLISHER Ot E78.4 OTHER HYPERLIPIDEMIA 01/20/2016 BAIMA, HELENE L ELECTRONIC PUBLISHER Ot I 10 ESSENTIAL (PRIMARY) HYPERTENSION 01/20/2016 BAIMA, HELENE L ELECTRONIC PUBLISHER Ot 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 01/20/2016 BAIMA, HELENE L ELECTRONIC PUBLISHER Ot I44.7 LEFT BUNDLE-BRANCH BLOCK, UNSPECIFIED 01/20/2016 BAIMA, HELENE L ELECTRONIC PUBLISHER Ot R06.09 OTHER FORMS OF DYSPNEA 01/20/2016 BAIMA, HELENE L ELECTRONIC PUBLISHER Ot R53.83 OTHER FATIGUE 01/24/2016 BAIMA, HELENE L ELECTRONIC PUBLISHER Ot E78.5 HYPERLIPIDEMIA, UNSPECIFIED 01/24/2016 BAIMA, HELENE L ELECTRONIC PUBLISHER Ot I 10 ESSENTIAL (PRIMARY) HYPERTENSION 01/24/2016 BAIMA, HELENE L ELECTRONIC PUBLISHER Ot 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 01/24/2016 BAIMA, HELENE L ELECTRONIC PUBLISHER Ot J84.10 PULMONARY FIBROSIS, UNSPECIFIED 01/24/2016 BAIMA, HELENE L ELECTRONIC PUBLISHER Ot R06.00 DYSPNEA, UNSPECIFIED 01/24/2016 BAIMA, HELENE L ELECTRONIC PUBLISHER Ot R53.83 OTHER FATIGUE 01/24/2016 BAIMA, HELENE L ELECTRONIC PUBLISHER Ot E78.4 OTHER HYPERLIPIDEMIA 01/24/2016 BAIMA, HELENE L ELECTRONIC PUBLISHER Ot I 10 ESSENTIAL (PRIMARY) HYPERTENSION 01/24/2016 BAIMA, HELENE L ELECTRONIC PUBLISHER Ot 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 01/24/2016 BAIMA, HELENE L ELECTRONIC PUBLISHER Ot I44.7 LEFT BUNDLE-BRANCH BLOCK, UNSPECIFIED 01/24/2016 BAIMA, HELENE L ELECTRONIC PUBLISHER Ot R06.09 OTHER FORMS OF DYSPNEA 01/24/2016 BAIMA, HELENE L ELECTRONIC PUBLISHER Ot R53.83 OTHER FATIGUE 01/24/2016 BAIMA, HELENE L ELECTRONIC PUBLISHER Ot E78.4 OTHER HYPERLIPIDEMIA 01/24/2016 BAIMA, HELENE L ELECTRONIC PUBLISHER Ot I 10 ESSENTIAL (PRIMARY) HYPERTENSION 01/24/2016 BAIMA, HELENE L ELECTRONIC PUBLISHER Ot 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 01/24/2016 BAIMA, HELENE L ELECTRONIC PUBLISHER Ot I44.7 LEFT BUNDLE-BRANCH BLOCK, UNSPECIFIED 01/24/2016 BAIMA, HELENE L ELECTRONIC PUBLISHER Ot R06.09 OTHER FORMS OF DYSPNEA 01/24/2016 BAIMA, HELENE L ELECTRONIC PUBLISHER Ot R53.83 OTHER FATIGUE 01/30/2016 GELLENDER DO, SHYLA A Ot R06.02 SHORTNESS OF BREATH 01/30/2016 GELLENDER DO, SHYLA A Ot R53.83 OTHER FATIGUE 01/31/2016 BALDEV DO, GILLIAN K Ot I10 ESSENTIAL (PRIMARY) HYPERTENSION 01/31/2016 BALDEV DO GILLIAN K Ot R07.89 OTHER CHEST PAIN 01/31/2016 BALDEV DO GILLIAN K Ot R53.83 OTHER FATIGUE 01/31/2016 BALDEV DO GILLIAN K Ot Z79.82 INTERMEDIATE (CURRENT) USE OF ASPIRIN 01/31/2016 BALDEV PEDRAZA GILLIAN K Ot Z79.899 OTHER SAW CLEANER (CURRENT) DRUG THERAPY 02/01/2016 BALDEV DO GILLIAN K Ot I10 ESSENTIAL (PRIMARY) HYPERTENSION 02/01/2016 BALDEV DO GILLIAN K Ot R07.89 OTHER CHEST PAIN 02/01/2016 BALDEV DO GILLIAN K Ot R53.83 OTHER FATIGUE 02/01/2016 GILLIAN DE PAZ DO Ot Z79.82 INTERMEDIATE (CURRENT) USE OF ASPIRIN 02/01/2016 GILLIAN DE PAZ DO Ot Z79.899 OTHER SAW CLEANER (CURRENT) DRUG THERAPY 02/05/2016 SHYLA WALLACE DO Ot R06.02 SHORTNESS OF BREATH 02/05/2016 SHYLA WALLACE DO Ot R53.83 OTHER FATIGUE 02/07/2016 BAIMA, HELENE L ELECTRONIC PUBLISHER Ot E78.4 OTHER HYPERLIPIDEMIA 02/07/2016 BAIMA, HELENE L ELECTRONIC PUBLISHER Ot I 10 ESSENTIAL (PRIMARY) HYPERTENSION 02/07/2016 BAIMA, HELENE L ELECTRONIC PUBLISHER Ot 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 02/07/2016 BAIMA, HELENE L ELECTRONIC PUBLISHER Ot I44.7 LEFT BUNDLE-BRANCH BLOCK, UNSPECIFIED 02/07/2016 BAIMA, HELENE L ELECTRONIC PUBLISHER Ot R06.09 OTHER FORMS OF DYSPNEA 02/07/2016 BAIMA, HELENE L ELECTRONIC PUBLISHER Ot R53.83 OTHER FATIGUE 02/12/2016 BAIMA, HELENE L ELECTRONIC PUBLISHER Ot E78.5 HYPERLIPIDEMIA, UNSPECIFIED 02/12/2016 BAIMA, HELENE L ELECTRONIC PUBLISHER Ot I 10 ESSENTIAL (PRIMARY) HYPERTENSION 02/12/2016 BAIMA, HELENE L ELECTRONIC PUBLISHER Ot 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 02/12/2016 BAIMA, HELENE L ELECTRONIC PUBLISHER Ot J84.10 PULMONARY FIBROSIS, UNSPECIFIED 02/12/2016 BAIMA, HELENE L ELECTRONIC PUBLISHER Ot R06.00 DYSPNEA, UNSPECIFIED 02/12/2016 BAIMA, HELENE L ELECTRONIC PUBLISHER Ot R53.83 OTHER FATIGUE 02/13/2016 BAIMA, HELENE L ELECTRONIC PUBLISHER Ot E78.4 OTHER HYPERLIPIDEMIA 02/13/2016 BAIMA, HELENE L ELECTRONIC PUBLISHER Ot I 10 ESSENTIAL (PRIMARY) HYPERTENSION 02/13/2016 BAIMA, HELENE L ELECTRONIC PUBLISHER Ot 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 02/13/2016 BAIMA, HELENE L ELECTRONIC PUBLISHER Ot I44.7 LEFT BUNDLE-BRANCH BLOCK, UNSPECIFIED 02/13/2016 BAIMA, HELENE L ELECTRONIC PUBLISHER Ot R06.09 OTHER FORMS OF DYSPNEA 02/13/2016 BAIMA, HELENE L ELECTRONIC PUBLISHER Ot R53.83 OTHER FATIGUE 02/25/2016 GELLENDER DO, SHYLA A Ot R06.02 SHORTNESS OF BREATH 02/25/2016 GELLENDER DO, SHYLA A Ot R53.83 OTHER FATIGUE 02/25/2016 GELLENDER DO, SHYLA A Ot R06.02 SHORTNESS OF BREATH 02/25/2016 GELLENDER DO, SHYLA A Ot R53.83 OTHER FATIGUE 02/25/2016 BAIMA, HELENE L ELECTRONIC PUBLISHER Ot E78.5 HYPERLIPIDEMIA, UNSPECIFIED 02/25/2016 BAIMA, HELENE L ELECTRONIC PUBLISHER Ot I 10 ESSENTIAL (PRIMARY) HYPERTENSION 02/25/2016 BAIMA, HELENE L ELECTRONIC PUBLISHER Ot 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 02/25/2016 BAIMA, HELENE L ELECTRONIC PUBLISHER Ot J84.10 PULMONARY FIBROSIS, UNSPECIFIED 02/25/2016 BAIMA, HELENE L ELECTRONIC PUBLISHER Ot R06.00 DYSPNEA, UNSPECIFIED 02/25/2016 BAIMA, HELENE L ELECTRONIC PUBLISHER Ot R53.83 OTHER FATIGUE 02/25/2016 BAIMA, HELENE L ELECTRONIC PUBLISHER Ot E78.4 OTHER HYPERLIPIDEMIA 02/25/2016 BAIMA, HELENE L ELECTRONIC PUBLISHER Ot I 10 ESSENTIAL (PRIMARY) HYPERTENSION 02/25/2016 BAIMA, HELENE L ELECTRONIC PUBLISHER Ot 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 02/25/2016 BAIMA, HELENE L ELECTRONIC PUBLISHER Ot I44.7 LEFT BUNDLE-BRANCH BLOCK, UNSPECIFIED 02/25/2016 BAIMA, HELENE L ELECTRONIC PUBLISHER Ot R06.09 OTHER FORMS OF DYSPNEA 02/25/2016 BAIMA, HELENE L ELECTRONIC PUBLISHER Ot R53.83 OTHER FATIGUE 03/17/2016 FELIPE CASILLAS FACC, ALI FACP CCDS Ot 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 03/17/2016 FELIPE CASILLAS FACC, ALI FACP CCDS Ot J43.8 OTHER EMPHYSEMA 03/17/2016 FELIPE CASILLAS FACC, ALI FACP CCDS Ot 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 03/17/2016 FELIPE CASILLAS FACC, ALI FACP CCDS Ot R06.02 SHORTNESS OF BREATH 03/17/2016 FELIPE CASILLAS FACC, ALI FACP CCDS Ot R53.83 OTHER FATIGUE 06/10/2016 Ot 599.0 URIN TRACT INFECTION NOS 08/12/2016 BAIMA, HELENE L ELECTRONIC PUBLISHER Ot 272.4 HYPERLIPIDEMIA NEC/NOS 08/12/2016 BEVERLYHELENE LUU L ELECTRONIC PUBLISHER Ot 401.9 HYPERTENSION NOS 08/12/2016 BEVERLYHELENE LUU L ELECTRONIC PUBLISHER Ot 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 NOS TYPE VESSEL, NATIV 08/12/2016 HELENE TEJEDA L ELECTRONIC PUBLISHER Ot 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 NEC 08/12/2016 NIKHILHELENE ELECTRONIC PUBLISHER Ot 426.3 LEFT BB BLOCK NEC 08/26/2016 ANA LAURA FERRER DO Ot J43. 8 OTHER EMPHYSEMA 08/26/2016 ANA LAURA FERRER DO Ot L93. 2 OTHER LOCAL LUPUS ERYTHEMATOSUS 08/26/2016 ANA LAURA FERRER DO Ot R06. 02 SHORTNESS OF BREATH 09/04/2016 GELLENDER SHYLA PEDRAZA Ot R05 COUGH 09/04/2016 GELLENDER DO, SHYLA Lazcano Ot R09.89 OTH SYMPTOMS AND SIGNS INVOLVING THE CIR 09/09/2016 GELLENCLINTON, SHYLA Lazcano Ot R05 COUGH 09/09/2016 GELLENDER DO, SHYLA Lazcano Ot R09.89 OTH SYMPTOMS AND SIGNS INVOLVING THE CIR 09/09/2016 Ot V76.12 OTH SCREEN MAMMO- MALIGN NEOPLASM OF [place] 09/09/2016 Ot 272.4 HYPE RLIPIDEMIA NEC/NOS 09/09/2016 Ot 401.9 HYPE RTENSION NOS 09/09/2016 Ot 414.00 COR ON ATHEROSCLER NOS TYPE VESSEL, NATIV 09/09/2016 Ot V58.69 OTH MED,LT,CURRENT USE 09/09/2016 Ot 401.9 HYPE RTENSION NOS 09/09/2016 Ot V58.69 OTH MED,LT,CURRENT USE 09/09/2016 Ot 272.4 HYPE RLIPIDEMIA NEC/NOS 09/09/2016 Ot 401.9 HYPE RTENSION NOS 09/09/2016 Ot 414.00 COR ON ATHEROSCLER NOS TYPE VESSEL, NATIV 09/09/2016 Ot V58.69 OTH MED,LT,CURRENT USE 09/09/2016 MAME GIRARD DO Ot V76.1 2 OTH SCREEN MAMMO-MALIGN NEOPLASM OF [place] 09/09/2016 Ot 719.45 LAURA NT PAIN-PELVIS 09/09/2016 Ot 719.45 LAURA NT PAIN-PELVIS 09/09/2016 NIKHIL HELENE L ELECTRONIC PUBLISHER Ot 272.4 HYPERLIPIDEMIA NEC/NOS 09/09/2016 BAIMA, HELENE L ELECTRONIC PUBLISHER Ot 272.4 HYPERLIPIDEMIA NEC/NOS 09/09/2016 BAIMA, HELENE L ELECTRONIC PUBLISHER Ot 401.9 HYPERTENSION NOS 09/09/2016 BAIMA, HELENE L ELECTRONIC PUBLISHER Ot 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 NOS TYPE VESSEL, NATIV 09/09/2016 BAIMA, HELENE L ELECTRONIC PUBLISHER Ot 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 NEC 09/09/2016 BAIMA, HELENE L ELECTRONIC PUBLISHER Ot 426.3 LEFT BB BLOCK NEC 09/09/2016 BAIMA, HELENE L ELECTRONIC PUBLISHER Ot 272.4 HYPERLIPIDEMIA NEC/NOS 09/09/2016 BAIMA, HELENE L ELECTRONIC PUBLISHER Ot 401.9 HYPERTENSION NOS 09/09/2016 BAIMA, HELENE L ELECTRONIC PUBLISHER Ot 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 NOS TYPE VESSEL, NATIV 09/09/2016 BAIMA, HELENE L ELECTRONIC PUBLISHER Ot 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 NEC 09/09/2016 BAIMA, HELENE L ELECTRONIC PUBLISHER Ot 426.3 LEFT BB BLOCK NEC 09/09/2016 ANA LAURA FERRER DO Ot 272. 4 HYPERLIPIDEMIA NEC/NOS 09/09/2016 ANA LAURA FERRER DO Ot 278. 00 OBESITY, NOS 09/09/2016 ANA LAURA FERRER DO Ot 401. 9 HYPERTENSION NOS 09/09/2016 ANA LAURA FERRER DO Ot 414. 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 NOS TYPE VESSEL, NATIV 09/09/2016 ANA LAURA FERRER DO Ot 416. 8 CHR PULMON HEART DIS NEC 09/09/2016 ANA LAURA FERRER DO Ot 426. 3 LEFT BB BLOCK NEC 09/09/2016 ANA LAURA FERRER DO Ot 428. 0 CONGESTIVE HEART FAILURE NOS 09/09/2016 ANA LAURA FERRER DO Ot 493. 90 ASTHMA, UNSPECIFIED 09/09/2016 ANA LAURA FERRER DO Ot 780. 54 HYPERSOMNIA, UNSPECIFIED 09/09/2016 ANA LAURA FERRER DO Ot 786. 05 SHORTNESS OF BREATH 09/09/2016 SHYLA WALLACE DO Ot 786.05 SHORTNESS OF BREATH 09/09/2016 SHYLA WALLACE DO Ot 786.50 CHEST PAIN NOS 09/09/2016 BAIMA, HELENE L ELECTRONIC PUBLISHER Ot 272.4 HYPERLIPIDEMIA NEC/NOS 09/09/2016 BAIMA, HELENE L ELECTRONIC PUBLISHER Ot 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 NOS TYPE VESSEL, NATIV 09/09/2016 HELENE TEJEDA ELECTRONIC PUBLISHER Ot V58.69 OTH MED,LT,CURRENT USE 09/09/2016 MMAE GIRARD DO Ot V76.1 2 OTH SCREEN MAMMO-MALIGN NEOPLASM OF [place] 09/09/2016 SHYLA WALLACE DO Ot 789.01 ABDOMINAL PAIN, RIGHT UPPER QUADRANT 09/09/2016 SHYLA WALLACE DO Ot 789.01 ABDOMINAL PAIN, RIGHT UPPER QUADRANT 09/09/2016 RODRIGO PEDRAZA, SHYLA Lazcano Ot 553.3 DIAPHRAGMATIC HERNIA 09/09/2016 SHYLA WALLACE DO Ot 571.8 CHRONIC LIVER DIS NEC 09/09/2016 SHYLA WALLACE DO Ot 789.1 HEPATOMEGALY 09/09/2016 REINIER ADEN DO Ot V72. 84 EXAM PRE-OPERATIVE NOS 09/09/2016 FELIPE CASILLAS FACC, ALI FACP CCDS Ot 272.4 HYPERLIPIDEMIA NEC/NOS 09/09/2016 FELIPE CASILLAS FACC, ALI FACP CCDS Ot 401.9 HYPERTENSION NOS 09/09/2016 FELIPE CASILLAS FACC, ALI FACP CCDS Ot 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 NEC 09/09/2016 FELIPE CASILLAS FACC, ALI FACP CCDS Ot 426.3 LEFT BB BLOCK NEC 09/09/2016 FELIPE CASILLAS FACC, ALI FACP CCDS Ot 786.05 SHORTNESS OF BREATH 09/09/2016 FELIPE ROBERTSC, ALI FACP CCDS Ot 786.59 CHEST PAIN NEC 09/09/2016 FELIPE CASILLAS FACC, ALI FACP CCDS Ot V58.69 OTH MED,LT,CURRENT USE 09/09/2016 FELIPE CASILLAS FACC, ALI FACP CCDS Ot 272.4 HYPERLIPIDEMIA NEC/NOS 09/09/2016 FELIPE CASILLAS FACC, ALI FACP CCDS Ot 397.0 TRICUSPID VALVE DISEASE 09/09/2016 FELIPE CASILLAS FACC, ALI FACP CCDS Ot 401.9 HYPERTENSION NOS 09/09/2016 FELIPE CASILLAS FACC, ALI FACP CCDS Ot 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 NEC 09/09/2016 FELIPE ROBERTSC, ALI FACP CCDS Ot 424.0 MITRAL VALVE DISORDER 09/09/2016 FELIPE CASILLAS FACC, ALI FACP CCDS Ot 426.3 LEFT BB BLOCK NEC 09/09/2016 FELIPE CASILLAS FAC, TRISHA ROBERTSP CCDS Ot 786.05 SHORTNESS OF BREATH 09/09/2016 FELIPE CASILLAS FAC, TRISHA ROBERTSP CCDS Ot V58.69 OTH MED,LT,CURRENT USE 09/09/2016 MOISES SAUL ELECTRONIC PUBLISHER Ot V76.1 2 OTH SCREEN MAMMO-MALIGN NEOPLASM OF [place] 09/09/2016 KIM ROCA MD Ot 715. 31 LOC OSTEOARTH NOS-SHLDER 09/09/2016 KIM ROCA MD Ot 721. 0 CERVICAL SPONDYLOSIS 09/09/2016 KIM ROCA MD Ot M19. 90 UNSPECIFIED OSTEOARTHRITIS, UNSPECIFIED 09/09/2016 KIM ROCA MD Ot M47.812 SPONDYLOSIS W/O MYELOPATHY OR RADICULOPA 09/09/2016 MAME GIRARD DO Ot N81.9 FEMALE GENITAL PROLAPSE, UNSPECIFIED 09/09/2016 MAME GIRARD DO Ot R10.2 PELVIC AND PERINEAL PAIN 09/09/2016 GELSHYLA WIGGINS DO Ot M79.604 PAIN IN RIGHT LEG 09/09/2016 GELLENDER DO, SHYLA Lazcano Ot R06.02 SHORTNESS OF BREATH 09/09/2016 GELLENDER DOSHYLA Ot R53.83 OTHER FATIGUE 09/09/2016 GELLENDER DO, SHYLA A Ot R06.02 SHORTNESS OF BREATH 09/09/2016 GELLENDER DO, SHYLA Lazcano Ot R53.83 OTHER FATIGUE 09/09/2016 BAIMA HELENE L ELECTRONIC PUBLISHER Ot E78.5 HYPERLIPIDEMIA, UNSPECIFIED 09/09/2016 BAIMA, HELENE L ELECTRONIC PUBLISHER Ot I 10 ESSENTIAL (PRIMARY) HYPERTENSION 09/09/2016 BAIMA HELENE L ELECTRONIC PUBLISHER Ot 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 09/09/2016 NIKHIL HELENE L ELECTRONIC PUBLISHER Ot J84.10 PULMONARY FIBROSIS, UNSPECIFIED 09/09/2016 BAIMA HELENE L ELECTRONIC PUBLISHER Ot R06.00 DYSPNEA, UNSPECIFIED 09/09/2016 BAIMA HELENE L ELECTRONIC PUBLISHER Ot R53.83 OTHER FATIGUE 09/09/2016 BAIMA HELENE L ELECTRONIC PUBLISHER Ot E78.4 OTHER HYPERLIPIDEMIA 09/09/2016 BAIMA, HELENE L ELECTRONIC PUBLISHER Ot I 10 ESSENTIAL (PRIMARY) HYPERTENSION 09/09/2016 BAIMA, HELENE L ELECTRONIC PUBLISHER Ot 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 09/09/2016 BAIMA, HELENE L ELECTRONIC PUBLISHER Ot I44.7 LEFT BUNDLE-BRANCH BLOCK, UNSPECIFIED 09/09/2016 BAIMA, HELENE L ELECTRONIC PUBLISHER Ot R06.09 OTHER FORMS OF DYSPNEA 09/09/2016 BAIMA, HELENE L ELECTRONIC PUBLISHER Ot R53.83 OTHER FATIGUE 09/09/2016 BAIMA, HELENE L ELECTRONIC PUBLISHER Ot E78.4 OTHER HYPERLIPIDEMIA 09/09/2016 BAIMA, HELENE L ELECTRONIC PUBLISHER Ot I 10 ESSENTIAL (PRIMARY) HYPERTENSION 09/09/2016 BAIMA, HELENE L ELECTRONIC PUBLISHER Ot 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 09/09/2016 BAIMA, HELENE L ELECTRONIC PUBLISHER Ot I44.7 LEFT BUNDLE-BRANCH BLOCK, UNSPECIFIED 09/09/2016 BAIMA, HELENE L ELECTRONIC PUBLISHER Ot R06.09 OTHER FORMS OF DYSPNEA 09/09/2016 BAIMA, HELENE L ELECTRONIC PUBLISHER Ot R53.83 OTHER FATIGUE 09/09/2016 FELIPE CASILLAS FAC, ALI FACP CCDS Ot 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 09/09/2016 FELIPE CASILLAS FACC, ALI FACP CCDS Ot J43.8 OTHER EMPHYSEMA 09/09/2016 FELIPE CASILLAS FACC, ALI FACP CCDS Ot 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 8 OTHER EMPHYSEMA 09/09/2016 ANA LAURA FERRER DO Ot L93. 2 OTHER LOCAL LUPUS ERYTHEMATOSUS 09/09/2016 ANA LAURA FERRER DO Ot R06. 02 SHORTNESS OF BREATH 09/21/2016 ANA LAURA FERRER DO Ot J43. 8 OTHER EMPHYSEMA 09/21/2016 ANA LAURA FERRER DO Ot L93. 2 OTHER LOCAL LUPUS ERYTHEMATOSUS 09/21/2016 ANA LAURA FERRER DO Ot R06. 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 10/29/2016 VAN JONES FIRE SPRINKLER DESIGNER Ot R91.8 OTHER NONSPECIFIC ABNORMAL FINDING OF [place] 11/17/2016 FELIPE CASILLAS FACC, TRISHA FACP CCDS Ot E78.1 PURE HYPERGLYCERIDEMIA 11/17/2016 FELIPE CASILLAS FACC, TRISHA FACP CCDS Ot F32.9 MAJOR DEPRESSIVE DISORDER, SINGLE EPISOD 11/17/2016 FELIPE CASILLAS FACC, ALI FACP CCDS Ot 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 11/17/2016 FELIPE CASILLAS FACC, ALI FACP CCDS Ot I44.7 LEFT BUNDLE-BRANCH BLOCK, UNSPECIFIED 11/17/2016 FELIPE CASILLAS FACC, ALI FACP CCDS Ot I47.1 SUPRAVENTRICULAR TACHYCARDIA 11/17/2016 FELIPE CASILLAS FACC, ALI FACP CCDS Ot J45.909 UNSPECIFIED ASTHMA, UNCOMPLICATED 11/17/2016 FELIPE CASILLAS FACC, ALI FACP CCDS Ot R06.02 SHORTNESS OF BREATH 11/17/2016 FELIPE CASILLAS FACC, ALI FACP CCDS Ot Z79.899 OTHER SAW CLEANER (CURRENT) DRUG THERAPY 11/24/2016 FELIPE CASILLAS FACC, ALI FACP CCDS Ot E78.1 PURE HYPERGLYCERIDEMIA 11/24/2016 FELIPE CASILLAS FACC, ALI FACP CCDS Ot F32.9 MAJOR DEPRESSIVE DISORDER, SINGLE EPISOD 11/24/2016 FELIPE CASILLAS FACC, TRISHA FACP CCDS Ot 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 11/24/2016 FELIPE CASILLAS FACC, ALI FACP CCDS Ot I44.7 LEFT BUNDLE-BRANCH BLOCK, UNSPECIFIED 11/24/2016 FELIPE CASILLAS FACC, ALI FACP CCDS Ot I47.1 SUPRAVENTRICULAR TACHYCARDIA 11/24/2016 FELIPE CASILLAS FACC, ALI FACP CCDS Ot J45.909 UNSPECIFIED ASTHMA, UNCOMPLICATED 11/24/2016 FELIPE CASILLAS FACC, ALI FACP CCDS Ot R06.02 SHORTNESS OF BREATH 11/24/2016 FELIPE CASILLAS FACC, ALI FACP CCDS Ot Z79.899 OTHER INTERMEDIATE (CURRENT) DRUG THERAPY 12/01/2016 VAN JONES FIRE SPRINKLER DESIGNER Ot I27.2 OTHER SECONDARY PULMONARY HYPERTENSION 12/01/2016 VAN JONES FIRE SPRINKLER DESIGNER Ot J44.9 CHRONIC OBSTRUCTIVE PULMONARY DISEASE, U 12/01/2016 VANDA JONESINE Verónica FIRE SPRINKLER DESIGNER Ot J45.909 UNSPECIFIED ASTHMA, UNCOMPLICATED 12/01/2016 VANDA JONESINE E FIRE SPRINKLER DESIGNER Ot R06.02 SHORTNESS OF BREATH 12/25/2016 VANDA JONESINE Verónica FIRE SPRINKLER DESIGNER Ot J44.9 CHRONIC OBSTRUCTIVE PULMONARY DISEASE, U 12/25/2016 VANDA JONESINE E FIRE SPRINKLER DESIGNER Ot J45.909 UNSPECIFIED ASTHMA, UNCOMPLICATED 12/25/2016 VANDA JONESINE E FIRE SPRINKLER DESIGNER Ot 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 12/25/2016 VANDA JONESINE E FIRE SPRINKLER DESIGNER Ot R91.8 OTHER NONSPECIFIC ABNORMAL FINDING OF [place] 01/01/2017 VANDA JONESINE Verónica FIRE SPRINKLER DESIGNER Ot I27.2 OTHER SECONDARY PULMONARY HYPERTENSION 01/01/2017 VAN JONES FIRE SPRINKLER DESIGNER Ot J44.9 CHRONIC OBSTRUCTIVE PULMONARY DISEASE, U 01/01/2017 VANDA JONESINE Verónica FIRE SPRINKLER DESIGNER Ot J45.909 UNSPECIFIED ASTHMA, UNCOMPLICATED 01/01/2017 VANDA JONESINE Verónica FIRE SPRINKLER DESIGNER Ot R06.02 SHORTNESS OF BREATH 01/09/2017 VANDA JONESINE Verónica FIRE SPRINKLER DESIGNER Ot I27.2 OTHER SECONDARY PULMONARY HYPERTENSION 01/09/2017 VANDA JONESINE Verónica FIRE SPRINKLER DESIGNER Ot J44.9 CHRONIC OBSTRUCTIVE PULMONARY DISEASE, U 01/09/2017 VANDA JONESINE E FIRE SPRINKLER DESIGNER Ot J45.909 UNSPECIFIED ASTHMA, UNCOMPLICATED 01/09/2017 KAREN, VAN E FIRE SPRINKLER DESIGNER Ot R06.02 SHORTNESS OF BREATH 01/12/2017 KAREN, VAN E FIRE SPRINKLER DESIGNER Ot I27.2 OTHER SECONDARY PULMONARY HYPERTENSION * 01/12/2017 KAREN, VAN E FIRE SPRINKLER DESIGNER Ot J44.9 CHRONIC OBSTRUCTIVE PULMONARY DISEASE, U 01/12/2017 KAREN, VAN E FIRE SPRINKLER DESIGNER Ot J45.909 UNSPECIFIED ASTHMA, UNCOMPLICATED 01/12/2017 KAREN, VAN E FIRE SPRINKLER DESIGNER Ot R06.02 SHORTNESS OF BREATH 01/13/2017 KAREN, VAN E FIRE SPRINKLER DESIGNER Ot I27.20 PULMONARY HYPERTENSION, UNSPECIFIED 01/13/2017 KAREN, VAN E FIRE SPRINKLER DESIGNER Ot J44.9 CHRONIC OBSTRUCTIVE PULMONARY DISEASE, U 01/13/2017 KAREN, VAN E FIRE SPRINKLER DESIGNER Ot J45.909 UNSPECIFIED ASTHMA, UNCOMPLICATED 01/13/2017 KAREN, VAN E FIRE SPRINKLER DESIGNER Ot R06.02 SHORTNESS OF BREATH 01/15/2017 KAREN, VAN E FIRE SPRINKLER DESIGNER Ot I27.2 OTHER SECONDARY PULMONARY HYPERTENSION 01/15/2017 KAREN, VAN E FIRE SPRINKLER DESIGNER Ot J44.9 CHRONIC OBSTRUCTIVE PULMONARY DISEASE, U 01/15/2017 KAREN, VAN E FIRE SPRINKLER DESIGNER Ot J45.909 UNSPECIFIED ASTHMA, UNCOMPLICATED 01/15/2017 KAREN, VAN E FIRE SPRINKLER DESIGNER Ot R06.02 SHORTNESS OF BREATH 01/15/2017 KAREN, VAN E FIRE SPRINKLER DESIGNER Ot I27.20 PULMONARY HYPERTENSION, UNSPECIFIED 01/15/2017 KAREN, VAN E FIRE SPRINKLER DESIGNER Ot J44.9 CHRONIC OBSTRUCTIVE PULMONARY DISEASE, U 01/15/2017 KAREN, VAN E FIRE SPRINKLER DESIGNER Ot J45.909 UNSPECIFIED ASTHMA, UNCOMPLICATED 01/15/2017 KAREN, VAN E FIRE SPRINKLER DESIGNER Ot R06.02 SHORTNESS OF BREATH 03/05/2017 KAREN, VAN E FIRE SPRINKLER DESIGNER Ot I27.20 PULMONARY HYPERTENSION, UNSPECIFIED 03/05/2017 KAREN, VAN E FIRE SPRINKLER DESIGNER Ot J44.9 CHRONIC OBSTRUCTIVE PULMONARY DISEASE, U 03/05/2017 KAREN, VAN E FIRE SPRINKLER DESIGNER Ot J45.909 UNSPECIFIED ASTHMA, UNCOMPLICATED 03/05/2017 KAREN, VAN E FIRE SPRINKLER DESIGNER Ot R06.02 SHORTNESS OF BREATH 03/13/2017 Ot 272.4 HYPE RLIPIDEMIA NEC/NOS 03/13/2017 Ot 401.9 HYPE RTENSION NOS 03/13/2017 Ot 414.00 COR ON ATHEROSCLER NOS TYPE VESSEL, NATIV 03/13/2017 Ot V58.69 OTH MED,LT,CURRENT USE 03/13/2017 MAME GIRARD DO Ot V76.1 2 OTH SCREEN MAMMO-MALIGN NEOPLASM OF [place] 03/13/2017 Ot 719.45 LAURA NT PAIN-PELVIS 03/13/2017 Ot 719.45 LAURA NT PAIN-PELVIS 03/13/2017 BAIMA, HELENE L ELECTRONIC PUBLISHER Ot 272.4 HYPERLIPIDEMIA NEC/NOS 03/13/2017 BAIMA, HELENE L ELECTRONIC PUBLISHER Ot 272.4 HYPERLIPIDEMIA NEC/NOS 03/13/2017 BAIMA, HELENE L ELECTRONIC PUBLISHER Ot 401.9 HYPERTENSION NOS 03/13/2017 BAIMA, HELENE L ELECTRONIC PUBLISHER Ot 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 NOS TYPE VESSEL, NATIV 03/13/2017 BAIMA, HELENE L ELECTRONIC PUBLISHER Ot 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 NEC 03/13/2017 BAIMA, HELENE L ELECTRONIC PUBLISHER Ot 426.3 LEFT BB BLOCK NEC 03/13/2017 BAIMA, HELENE L ELECTRONIC PUBLISHER Ot 272.4 HYPERLIPIDEMIA NEC/NOS 03/13/2017 BAIMA, HELENE L ELECTRONIC PUBLISHER Ot 401.9 HYPERTENSION NOS 03/13/2017 BAIMA, HELENE L ELECTRONIC PUBLISHER Ot 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 NOS TYPE VESSEL, NATIV 03/13/2017 BAIMA, HELENE L ELECTRONIC PUBLISHER Ot 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 NEC 03/13/2017 BAIBELL, HELENE L ELECTRONIC PUBLISHER Ot 426.3 LEFT BB BLOCK NEC 03/13/2017 ANA LAURA FERRER DO Ot 272. 4 HYPERLIPIDEMIA NEC/NOS 03/13/2017 ANA LAURA FERRER DO Ot 278. 00 OBESITY, NOS 03/13/2017 ANA LAURA FERRER DO Ot 401. 9 HYPERTENSION NOS 03/13/2017 ANA LAURA FERRER DO Ot 414. 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 NOS TYPE VESSEL, NATIV 03/13/2017 ANA LAURA FERRER DO Ot 416. 8 CHR PULMON HEART DIS NEC 03/13/2017 ANA LAURA FERRER DO Ot 426. 3 LEFT BB BLOCK NEC 03/13/2017 ANA LAURA FERRER DO Ot 428. 0 CONGESTIVE HEART FAILURE NOS 03/13/2017 ANA LAURA FERRER DO Ot 493. 90 ASTHMA, UNSPECIFIED 03/13/2017 ANA LAURA FERRER DO Ot 780. 54 HYPERSOMNIA, UNSPECIFIED 03/13/2017 ANA LAURA FERRER DO Ot 786. 05 SHORTNESS OF BREATH 03/13/2017 SHYLA WALLACE DO Ot 786.05 SHORTNESS OF BREATH 03/13/2017 SHYLA WALLACE DO Ot 786.50 CHEST PAIN NOS 03/13/2017 HELENE TEJEDA ELECTRONIC PUBLISHER Ot 272.4 HYPERLIPIDEMIA NEC/NOS 03/13/2017 HELENE TEJEDA ELECTRONIC PUBLISHER Ot 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 NOS TYPE VESSEL, NATIV 03/13/2017 NIKHIL HELENE L ELECTRONIC PUBLISHER Ot V58.69 OTH MED,LT,CURRENT USE 03/13/2017 MAME GIRARD DO Ot V76.1 2 OTH SCREEN MAMMO-MALIGN NEOPLASM OF [place] 03/13/2017 SHLYA WALLACE DO Ot 789.01 ABDOMINAL PAIN, RIGHT UPPER QUADRANT 03/13/2017 SHYLA WALLACE DO Ot 789.01 ABDOMINAL PAIN, RIGHT UPPER QUADRANT 03/13/2017 SHYLA WALLACE DO Ot 553.3 DIAPHRAGMATIC HERNIA 03/13/2017 SHYLA WALLACE DO Ot 571.8 CHRONIC LIVER DIS NEC 03/13/2017 SHYLA WALLACE DO Ot 789.1 HEPATOMEGALY 03/13/2017 REINIER ADEN DO Ot V72. 84 EXAM PRE-OPERATIVE NOS 03/13/2017 FELIPE CASILLAS FACC, TRISHA FACP CCDS Ot 272.4 HYPERLIPIDEMIA NEC/NOS 03/13/2017 [...] CCDS Ot 272.4 HYPERLIPIDEMIA NEC/NOS 03/13/2017 FELIPE MD FACC, ALI FACP CCDS Ot 397.0 TRICUSPID VALVE DISEASE 03/13/2017 FELIPE MD FACC, ALI FACP CCDS Ot 401.9 HYPERTENSION NOS 03/13/2017 FELIPE MD FACC, ALI FACP CCDS Ot 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 NEC 03/13/2017 FELIPE FACC, ALI FACP CCDS Ot 424.0 MITRAL VALVE DISORDER 03/13/2017 FELIPE MD FACC, ALI FACP CCDS Ot 426.3 LEFT BB BLOCK NEC 03/13/2017 FELIPE MD FACC, ALI FACP CCDS Ot 786.05 SHORTNESS OF BREATH 03/13/2017 FELIPE MD FACC, ALI FACP CCDS Ot V58.69 OTH MED,LT,CURRENT USE 03/13/2017 MOISES SAUL ELECTRONIC PUBLISHER Ot V76.1 2 OTH SCREEN MAMMO-MALIGN NEOPLASM OF [place] 03/13/2017 KIM ROCA MD Ot 715. 31 LOC OSTEOARTH NOS-SHLDER 03/13/2017 KIM ROCA MD Ot 721. 0 CERVICAL SPONDYLOSIS 03/13/2017 KIM ROCA MD Ot M19. 90 UNSPECIFIED OSTEOARTHRITIS, UNSPECIFIED 03/13/2017 KIM ROCA MD Ot M47.812 SPONDYLOSIS W/O MYELOPATHY OR RADICULOPA 03/13/2017 MAME GIRARD DO Ot N81.9 FEMALE GENITAL PROLAPSE, UNSPECIFIED 03/13/2017 MAME GIRARD DO Ot R10.2 PELVIC AND PERINEAL PAIN 03/13/2017 SHYLA WALLACE DO Ot M79.604 PAIN IN RIGHT LEG 03/13/2017 GELRADHAMESDER DOSHYLA Ot R06.02 SHORTNESS OF BREATH 03/13/2017 GELLENDER DOSHYLA Ot R53.83 OTHER FATIGUE 03/13/2017 GELLENDER DO, SHYLA Lazcano Ot R06.02 SHORTNESS OF BREATH 03/13/2017 GELLENDER DO, SHYLA Lazcano Ot R53.83 OTHER FATIGUE 03/13/2017 HELENE TEJEDA ELECTRONIC PUBLISHER Ot E78.5 HYPERLIPIDEMIA, UNSPECIFIED 03/13/2017 BAIMA, HELENE L ELECTRONIC PUBLISHER Ot I 10 ESSENTIAL (PRIMARY) HYPERTENSION 03/13/2017 BAIMA, HELENE L ELECTRONIC PUBLISHER Ot 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 03/13/2017 BAIMA, HELENE L ELECTRONIC PUBLISHER Ot J84.10 PULMONARY FIBROSIS, UNSPECIFIED 03/13/2017 BAIMA, HELENE L ELECTRONIC PUBLISHER Ot R06.00 DYSPNEA, UNSPECIFIED 03/13/2017 BAIMA, HELENE L ELECTRONIC PUBLISHER Ot R53.83 OTHER FATIGUE 03/13/2017 BAIMA, HELENE L ELECTRONIC PUBLISHER Ot E78.4 OTHER HYPERLIPIDEMIA 03/13/2017 BAIMA, HELENE L ELECTRONIC PUBLISHER Ot I 10 ESSENTIAL (PRIMARY) HYPERTENSION 03/13/2017 BAIMA, HELENE L ELECTRONIC PUBLISHER Ot 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 03/13/2017 BAIMA, HELENE L ELECTRONIC PUBLISHER Ot I44.7 LEFT BUNDLE-BRANCH BLOCK, UNSPECIFIED 03/13/2017 BAIMA, HELENE L ELECTRONIC PUBLISHER Ot R06.09 OTHER FORMS OF DYSPNEA 03/13/2017 BAIMA, HELENE L ELECTRONIC PUBLISHER Ot R53.83 OTHER FATIGUE 03/13/2017 BAIMA, HELENE L ELECTRONIC PUBLISHER Ot E78.4 OTHER HYPERLIPIDEMIA 03/13/2017 BAIMA, HELENE L ELECTRONIC PUBLISHER Ot I 10 ESSENTIAL (PRIMARY) HYPERTENSION 03/13/2017 BAIMA, HELENE L ELECTRONIC PUBLISHER Ot 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 03/13/2017 BAIMA, HELENE L ELECTRONIC PUBLISHER Ot I44.7 LEFT BUNDLE-BRANCH BLOCK, UNSPECIFIED 03/13/2017 BAIMA, HELENE L ELECTRONIC PUBLISHER Ot R06.09 OTHER FORMS OF DYSPNEA 03/13/2017 BAIMA, HELENE L ELECTRONIC PUBLISHER Ot R53.83 OTHER FATIGUE 03/13/2017 FELIPE CASILLAS FACC, ALI FACP CCDS Ot 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 03/13/2017 FELIPE CASILLAS FACC, ALI FACP CCDS Ot J43.8 OTHER EMPHYSEMA 03/13/2017 FELIPE CASILLAS FACC, ALI FACP CCDS Ot 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 8 OTHER EMPHYSEMA 03/13/2017 ANA LAURA FERRER DO Ot L93. 2 OTHER LOCAL LUPUS ERYTHEMATOSUS 03/13/2017 ANA LAURA FERRER DO Ot R06. 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 03/13/2017 VAN JONES FIRE SPRINKLER DESIGNER Ot R91.8 OTHER NONSPECIFIC ABNORMAL FINDING OF [place] 03/13/2017 VAN JONES FIRE SPRINKLER DESIGNER Ot I27.20 PULMONARY HYPERTENSION, UNSPECIFIED 03/13/2017 VAN JONES FIRE SPRINKLER DESIGNER Ot J44.9 CHRONIC OBSTRUCTIVE PULMONARY DISEASE, U 03/13/2017 VAN JONES FIRE SPRINKLER DESIGNER Ot J45.909 UNSPECIFIED ASTHMA, UNCOMPLICATED 03/13/2017 VAN JONES FIRE SPRINKLER DESIGNER Ot R06.02 SHORTNESS OF BREATH 03/16/2017 DEJA PARKS OVEN ROASTER-C Ot M17.11 UNILATERAL PRIMARY OSTEOARTHRITIS, RIGHT 04/07/2017 DEJA PARKS OVEN ROASTER-C Ot M17.11 UNILATERAL PRIMARY OSTEOARTHRITIS, RIGHT 04/12/2017 VAN JONES FIRE SPRINKLER DESIGNER Ot I27.20 PULMONARY HYPERTENSION, UNSPECIFIED 04/12/2017 VAN JONES FIRE SPRINKLER DESIGNER Ot J44.9 CHRONIC OBSTRUCTIVE PULMONARY DISEASE, U 04/12/2017 VAN JONES FIRE SPRINKLER DESIGNER Ot J45.909 UNSPECIFIED ASTHMA, UNCOMPLICATED 04/12/2017 VAN JONES FIRE SPRINKLER DESIGNER Ot R06.02 SHORTNESS OF BREATH 04/14/2017 DEJA PARKS OVEN ROASTER-C Ot M17.11 UNILATERAL PRIMARY OSTEOARTHRITIS, RIGHT 04/28/2017 [...] 414.00 04/28/2017 Ot V58.69 04/28/2017 Ot 272.4 HYPE RLIPIDEMIA NEC/NOS 04/28/2017 Ot 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 04/28/2017 Ot V58.69 OTH MED,LT,CURRENT USE 04/28/2017 Ot 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 04/28/2017 Ot 786.09 RES PIRATORY ABNORM NEC 04/28/2017 Ot 397.0 TRIC USPID VALVE DISEASE 04/28/2017 Ot 414.00 COR ON ATHEROSCLER NOS TYPE VESSEL, NATIV 04/28/2017 Ot 424.0 MITR AL VALVE DISORDER 04/28/2017 Ot 786.09 RES PIRATORY ABNORM NEC 04/28/2017 Ot 401.9 HYPE RTENSION NOS 04/28/2017 Ot 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 04/28/2017 Ot 618.6 VAGI NAL ENTEROCELE 04/28/2017 Ot 791.9 ABN URINE FINDINGS NEC 04/28/2017 Ot V58.69 OTH MED,LT,CURRENT USE 04/28/2017 Ot V72.63 PRE -PROCEDURAL LABORATORY EXAMINATION 04/28/2017 Ot V72.81 [id number] CARDIOVASCULAR 04/28/2017 Ot V74.8 SCRE EN-BACTERIAL DIS NEC 04/28/2017 Ot V76.12 OTH SCREEN MAMMO- MALIGN NEOPLASM OF [place] 04/28/2017 Ot 272.4 HYPE RLIPIDEMIA NEC/NOS 04/28/2017 Ot 414.00 COR ON ATHEROSCLER NOS TYPE VESSEL, NATIV 04/28/2017 Ot V58.69 OTH MED,LT,CURRENT USE 04/28/2017 Ot 272.4 HYPE RLIPIDEMIA NEC/NOS 04/28/2017 Ot 414.00 COR ON ATHEROSCLER NOS TYPE VESSEL, NATIV 04/28/2017 Ot V58.69 OTH MED,LT,CURRENT USE 04/28/2017 Ot V58.83 ENC OUNTER FOR THERAPEUTIC DRUG MONITORIN 04/28/2017 Ot 272.4 HYPE RLIPIDEMIA NEC/NOS 04/28/2017 Ot 401.9 HYPE RTENSION NOS 04/28/2017 Ot 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 04/28/2017 Ot V58.69 OTH MED,LT,CURRENT USE 04/28/2017 Ot V76.12 OTH SCREEN MAMMO- MALIGN NEOPLASM OF [place] 04/28/2017 Ot 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 04/28/2017 Ot 729.5 PAIN IN LIMB 04/28/2017 Ot 429.3 CARD IOMEGALY 04/28/2017 Ot 715.36 LOC OSTEOARTH NOS-L/LEG 04/28/2017 Ot 791.9 ABN URINE FINDINGS NEC 04/28/2017 Ot V57.1 PHYS ICAL THERAPY NEC 04/28/2017 Ot V57.21 ENC OUNTER FOR OCCUPATIONAL THERAPY 04/28/2017 Ot V58.69 OTH MED,LT,CURRENT USE 04/28/2017 Ot V72.63 PRE -PROCEDURAL LABORATORY EXAMINATION 04/28/2017 Ot V72.81 [id number] CARDIOVASCULAR 04/28/2017 Ot V58.61 ANTICOAGULANTS,LT,CURRENT USE 04/28/2017 Ot V58.83 ENC OUNTER FOR THERAPEUTIC DRUG MONITORIN 04/28/2017 Ot V58.61 ANTICOAGULANTS,LT,CURRENT USE 04/28/2017 Ot V58.83 ENC OUNTER FOR THERAPEUTIC DRUG MONITORIN 04/28/2017 Ot 599.0 URIN TRACT INFECTION NOS 04/28/2017 Ot V58.61 ANTICOAGULANTS,LT,CURRENT USE 04/28/2017 Ot V58.83 ENC OUNTER FOR THERAPEUTIC DRUG MONITORIN 04/28/2017 Ot 272.4 HYPE RLIPIDEMIA NEC/NOS 04/28/2017 Ot V58.69 OTH MED,LT,CURRENT USE 04/28/2017 Ot V76.12 OTH SCREEN MAMMO- MALIGN NEOPLASM OF [place] 04/28/2017 Ot 272.4 HYPE RLIPIDEMIA NEC/NOS 04/28/2017 Ot 401.9 HYPE RTENSION NOS 04/28/2017 Ot 414.00 COR ON ATHEROSCLER NOS TYPE VESSEL, NATIV 04/28/2017 Ot V58.69 OTH MED,LT,CURRENT USE 04/28/2017 Ot 401.9 HYPE RTENSION NOS 04/28/2017 Ot V58.69 OTH MED,LT,CURRENT USE 04/28/2017 Ot 272.4 HYPE RLIPIDEMIA NEC/NOS 04/28/2017 Ot 401.9 HYPE RTENSION NOS 04/28/2017 Ot 414.00 COR ON ATHEROSCLER NOS TYPE VESSEL, NATIV 04/28/2017 Ot V58.69 OTH MED,LT,CURRENT USE 04/28/2017 MAME GIRARD DO Ot V76.1 2 OTH SCREEN MAMMO-MALIGN NEOPLASM OF [place] 04/28/2017 Ot 719.45 LAURA NT PAIN-PELVIS 04/28/2017 Ot 719.45 LAURA NT PAIN-PELVIS 04/28/2017 BAIMA, HELENE L ELECTRONIC PUBLISHER Ot 272.4 HYPERLIPIDEMIA NEC/NOS 04/28/2017 BAIMA, HELENE L ELECTRONIC PUBLISHER Ot 272.4 HYPERLIPIDEMIA NEC/NOS 04/28/2017 BAIMA, HELENE L ELECTRONIC PUBLISHER Ot 401.9 HYPERTENSION NOS 04/28/2017 BAIMA, HELENE L ELECTRONIC PUBLISHER Ot 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 NOS TYPE VESSEL, NATIV 04/28/2017 BAIMA, HELENE L ELECTRONIC PUBLISHER Ot 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 NEC 04/28/2017 BAIMA, HELENE L ELECTRONIC PUBLISHER Ot 426.3 LEFT BB BLOCK NEC 04/28/2017 BAIMA, HELENE L ELECTRONIC PUBLISHER Ot 272.4 HYPERLIPIDEMIA NEC/NOS 04/28/2017 BAIMA, HELENE L ELECTRONIC PUBLISHER Ot 401.9 HYPERTENSION NOS 04/28/2017 BAIMA, HELENE L ELECTRONIC PUBLISHER Ot 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 NOS TYPE VESSEL, NATIV 04/28/2017 BAIMA, HELENE L ELECTRONIC PUBLISHER Ot 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 NEC 04/28/2017 BAIMA, HELENE L ELECTRONIC PUBLISHER Ot 426.3 LEFT BB BLOCK NEC 04/28/2017 ANA LAURA FERRER DO Ot 272. 4 HYPERLIPIDEMIA NEC/NOS 04/28/2017 ANA LAURA FERRER DO Ot 278. 00 OBESITY, NOS 04/28/2017 ANA LAURA FERRER DO Ot 401. 9 HYPERTENSION NOS 04/28/2017 ANA LAURA FERRER DO Ot 414. 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 NOS TYPE VESSEL, NATIV 04/28/2017 ANA LAURA FERRER DO Ot 416. 8 CHR PULMON HEART DIS NEC 04/28/2017 ANA LAURA FERRER DO Ot 426. 3 LEFT BB BLOCK NEC 04/28/2017 ANA LAURA FERRER DO Ot 428. 0 CONGESTIVE HEART FAILURE NOS 04/28/2017 ANA LAURA FERRER DO Ot 493. 90 ASTHMA, UNSPECIFIED 04/28/2017 ANA LAURA FERRER DO Ot 780. 54 HYPERSOMNIA, UNSPECIFIED 04/28/2017 CARISSA PEDRAZA ANA LAURA Oscar Ot 786. 05 SHORTNESS OF BREATH 04/28/2017 HELENE TEJEAD Tab ELECTRONIC PUBLISHER Ot 272.4 HYPERLIPIDEMIA NEC/NOS 04/28/2017 BAIMA HELENE L ELECTRONIC PUBLISHER Ot 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 NOS TYPE VESSEL, NATIV 04/28/2017 HELENE TEJEDA ELECTRONIC PUBLISHER Ot V58.69 OTH MED,LT,CURRENT USE 04/28/2017 RODRIGO PEDRAZASHYLA Ot 786.05 SHORTNESS OF BREATH 04/28/2017 SHYLA WALLACE DO Ot 786.50 CHEST PAIN NOS 04/28/2017 GIRARD MAME Kelly Ot V76.1 2 OTH SCREEN MAMMO-MALIGN NEOPLASM OF [place] 04/28/2017 RODRIGO SHYLA PEDRAZA Ot 789.01 ABDOMINAL PAIN, RIGHT UPPER QUADRANT 04/28/2017 MIKALASHYLA WIGGINS DO Ot 789.01 ABDOMINAL PAIN, RIGHT UPPER QUADRANT 04/28/2017 MIKALARADHAMESLINDSAY SHYLA PEDRAZA Ot 553.3 DIAPHRAGMATIC HERNIA 04/28/2017 SHYLA WALLACE DO Ot 571.8 CHRONIC LIVER DIS NEC 04/28/2017 SHYLA WALLACE DO Ot 789.1 HEPATOMEGALY 04/28/2017 REINIER ADEN DO Ot V72. 84 EXAM PRE-OPERATIVE NOS 04/28/2017 FELIPE CASILLAS FACC, ALI FACP CCDS Ot 272.4 HYPERLIPIDEMIA NEC/NOS 04/28/2017 FELIPE CASILLAS FACC, ALI FACP CCDS Ot 401.9 HYPERTENSION NOS 04/28/2017 FELIPE CASILLAS FACC, ALI FACP CCDS Ot 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 NEC 04/28/2017 FELIPE ROBERTSC, ALI FACP CCDS Ot 426.3 LEFT BB BLOCK NEC 04/28/2017 FELIPE CASILLAS FACC, ALI FACP CCDS Ot 786.05 SHORTNESS OF BREATH 04/28/2017 FELIPE MD FACC, ALI FACP CCDS Ot 786.59 CHEST PAIN NEC 04/28/2017 FELIPE MD FACC, ALI FACP CCDS Ot V58.69 OTH MED,LT,CURRENT USE 04/28/2017 FELIPE MD FACC, ALI FACP CCDS Ot 272.4 HYPERLIPIDEMIA NEC/NOS 04/28/2017 FELIPE MD FACC, ALI FACP CCDS Ot 397.0 TRICUSPID VALVE DISEASE 04/28/2017 FELIPE MD FACC, ALI FACP CCDS Ot 401.9 HYPERTENSION NOS 04/28/2017 FELIPE FACC, ALI FACP CCDS Ot 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 NEC 04/28/2017 FELIPE MD FACC, ALI FACP CCDS Ot 424.0 MITRAL VALVE DISORDER 04/28/2017 FELIPE MD FACC, ALI FACP CCDS Ot 426.3 LEFT BB BLOCK NEC 04/28/2017 FELIPE MD FACC, ALI FACP CCDS Ot 786.05 SHORTNESS OF BREATH 04/28/2017 FELIPE CASILLAS FACC, ALI FACP CCDS Ot V58.69 OTH MED,LT,CURRENT USE 04/28/2017 MOISES SAUL ELECTRONIC PUBLISHER Ot V76.1 2 OTH SCREEN MAMMO-MALIGN NEOPLASM OF [place] 04/28/2017 KIM ROCA MD Ot 715. 31 LOC OSTEOARTH NOS-SHLDER 04/28/2017 KIM ROCA MD Ot 721. 0 CERVICAL SPONDYLOSIS 04/28/2017 KIM ROCA MD Ot M19. 90 UNSPECIFIED OSTEOARTHRITIS, UNSPECIFIED 04/28/2017 KIM ROCA MD Ot M47.812 SPONDYLOSIS W/O MYELOPATHY OR RADICULOPA 04/28/2017 MAME GIRARD DO Ot N81.9 FEMALE GENITAL PROLAPSE, UNSPECIFIED 04/28/2017 MAME GIRARD DO Ot R10.2 PELVIC AND PERINEAL PAIN 04/28/2017 SHYLA WALLACE DO Ot M79.604 PAIN IN RIGHT LEG 04/28/2017 SHYLA WALLACE DO Ot R06.02 SHORTNESS OF BREATH 04/28/2017 SHYLA WALLACE DO Ot R53.83 OTHER FATIGUE 04/28/2017 GELLENDER DO, SHYLA A Ot R06.02 SHORTNESS OF BREATH 04/28/2017 GELSHYLA WIGGINS DO A Ot R53.83 OTHER FATIGUE 04/28/2017 BAIMA, HELENE L ELECTRONIC PUBLISHER Ot E78.5 HYPERLIPIDEMIA, UNSPECIFIED 04/28/2017 BAIMA, HELENE L ELECTRONIC PUBLISHER Ot I 10 ESSENTIAL (PRIMARY) HYPERTENSION 04/28/2017 BAIMA, HELENE L ELECTRONIC PUBLISHER Ot 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 04/28/2017 BAIMA, HELENE L ELECTRONIC PUBLISHER Ot J84.10 PULMONARY FIBROSIS, UNSPECIFIED 04/28/2017 BAIMA, HELENE L ELECTRONIC PUBLISHER Ot R06.00 DYSPNEA, UNSPECIFIED 04/28/2017 BAIMA, HELENE L ELECTRONIC PUBLISHER Ot R53.83 OTHER FATIGUE 04/28/2017 BAIMA, HELENE L ELECTRONIC PUBLISHER Ot E78.4 OTHER HYPERLIPIDEMIA 04/28/2017 BAIMA, HELENE L ELECTRONIC PUBLISHER Ot I 10 ESSENTIAL (PRIMARY) HYPERTENSION 04/28/2017 BAIMA, HELENE L ELECTRONIC PUBLISHER Ot 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 04/28/2017 BAIMA, HELENE L ELECTRONIC PUBLISHER Ot I44.7 LEFT BUNDLE-BRANCH BLOCK, UNSPECIFIED 04/28/2017 BAIMA, HELENE L ELECTRONIC PUBLISHER Ot R06.09 OTHER FORMS OF DYSPNEA 04/28/2017 BAIMA, HELENE L ELECTRONIC PUBLISHER Ot R53.83 OTHER FATIGUE 04/28/2017 BAIMA, HELENE L ELECTRONIC PUBLISHER Ot E78.4 OTHER HYPERLIPIDEMIA 04/28/2017 BAIMA, HELENE L ELECTRONIC PUBLISHER Ot I 10 ESSENTIAL (PRIMARY) HYPERTENSION 04/28/2017 BAIMA, HELENE L ELECTRONIC PUBLISHER Ot 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 04/28/2017 BAIMA, HELENE L ELECTRONIC PUBLISHER Ot I44.7 LEFT BUNDLE-BRANCH BLOCK, UNSPECIFIED 04/28/2017 BAIMA, HELENE L ELECTRONIC PUBLISHER Ot R06.09 OTHER FORMS OF DYSPNEA 04/28/2017 BAIMA, HELENE L ELECTRONIC PUBLISHER Ot R53.83 OTHER FATIGUE 04/28/2017 FELIPE CASILLAS FACC, ALI FACP CCDS Ot 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 04/28/2017 FELIPE CASILLAS FACC, ALI FACP CCDS Ot J43.8 OTHER EMPHYSEMA 04/28/2017 FELIPE CASILLAS FACC, ALI FACP CCDS Ot 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 8 OTHER EMPHYSEMA 04/28/2017 ANA LAURA FERRER DO Ot L93. 2 OTHER LOCAL LUPUS ERYTHEMATOSUS 04/28/2017 ANA LAURA FERRER DO Ot R06. 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 04/28/2017 VAN JONES FIRE SPRINKLER DESIGNER Ot R91.8 OTHER NONSPECIFIC ABNORMAL FINDING OF [place] 04/28/2017 DEJA PARKS-C Ot M17.11 UNILATERAL PRIMARY OSTEOARTHRITIS, RIGHT 04/28/2017 VAN JONES APRN Ot I27.20 PULMONARY HYPERTENSION, UNSPECIFIED 04/28/2017 VAN JONES APRN Ot J44.9 CHRONIC OBSTRUCTIVE PULMONARY DISEASE, U 04/28/2017 VAN JONES APRN Ot J45.909 UNSPECIFIED ASTHMA, UNCOMPLICATED 04/28/2017 VAN JONES APRN Ot R06.02 SHORTNESS OF BREATH 04/29/2017 DEJA PARKS-C Ot M17.11 UNILATERAL PRIMARY OSTEOARTHRITIS, RIGHT 04/29/2017 Ot 272.4 HYPE RLIPIDEMIA NEC/NOS 04/29/2017 Ot 401.9 HYPE RTENSION NOS 04/29/2017 Ot 414.00 COR ON ATHEROSCLER NOS TYPE VESSEL, NATIV 04/29/2017 Ot V58.69 OTH MED,LT,CURRENT USE 04/29/2017 MAME GIRARD DO Ot V76.1 2 OTH SCREEN MAMMO-MALIGN NEOPLASM OF [place] 04/29/2017 Ot 719.45 LAURA NT PAIN-PELVIS 04/29/2017 Ot 719.45 LAURA NT PAIN-PELVIS 04/29/2017 BAIMA, HELENE L ELECTRONIC PUBLISHER Ot 272.4 HYPERLIPIDEMIA NEC/NOS 04/29/2017 BAIMA, HELENE L ELECTRONIC PUBLISHER Ot 272.4 HYPERLIPIDEMIA NEC/NOS 04/29/2017 BAIMA, HELENE L ELECTRONIC PUBLISHER Ot 401.9 HYPERTENSION NOS 04/29/2017 BAIMA, HELENE L ELECTRONIC PUBLISHER Ot 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 NOS TYPE VESSEL, NATIV 04/29/2017 BAIMA, HELENE L ELECTRONIC PUBLISHER Ot 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 NEC 04/29/2017 BAIMA, HELENE L ELECTRONIC PUBLISHER Ot 426.3 LEFT BB BLOCK NEC 04/29/2017 BAIMA, HELENE L ELECTRONIC PUBLISHER Ot 272.4 HYPERLIPIDEMIA NEC/NOS 04/29/2017 BAIMA, HELENE L ELECTRONIC PUBLISHER Ot 401.9 HYPERTENSION NOS 04/29/2017 BAIMA, HELENE L ELECTRONIC PUBLISHER Ot 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 NOS TYPE VESSEL, NATIV 04/29/2017 BAIMA, HELENE L ELECTRONIC PUBLISHER Ot 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 NEC 04/29/2017 BAIMA, HELENE L ELECTRONIC PUBLISHER Ot 426.3 LEFT BB BLOCK NEC 04/29/2017 ANA LAURA FERRER DO Ot 272. 4 HYPERLIPIDEMIA NEC/NOS 04/29/2017 ANA LAURA FERRER DO Ot 278. 00 OBESITY, NOS 04/29/2017 ANA LAURA FERRER DO Ot 401. 9 HYPERTENSION NOS 04/29/2017 ANA LAURA FERRER DO Ot 414. 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 NOS TYPE VESSEL, NATIV 04/29/2017 AN ALAURA FERRER DO Ot 416. 8 CHR PULMON HEART DIS NEC 04/29/2017 ANA LAURA FERRER DO Ot 426. 3 LEFT BB BLOCK NEC 04/29/2017 ANA LAURA FERRER DO Ot 428. 0 CONGESTIVE HEART FAILURE NOS 04/29/2017 ANA LAURA FERRER DO Ot 493. 90 ASTHMA, UNSPECIFIED 04/29/2017 ANA LAURA FERRER DO Ot 780. 54 HYPERSOMNIA, UNSPECIFIED 04/29/2017 ANA LAURA FERRER DO Ot 786. 05 SHORTNESS OF BREATH 04/29/2017 SHYLA WALLACE DO Ot 786.05 SHORTNESS OF BREATH 04/29/2017 SHYLA WALLACE DO Ot 786.50 CHEST PAIN NOS 04/29/2017 BEVERLYHELENE LUU ELECTRONIC PUBLISHER Ot 272.4 HYPERLIPIDEMIA NEC/NOS 04/29/2017 HELENE TEJEDA ELECTRONIC PUBLISHER Ot 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 NOS TYPE VESSEL, NATIV 04/29/2017 HELENE TEJEDA ELECTRONIC PUBLISHER Ot V58.69 OTH MED,LT,CURRENT USE 04/29/2017 MAME GIRARD DO Ot V76.1 2 OTH SCREEN MAMMO-MALIGN NEOPLASM OF [place] 04/29/2017 SHYLA WALLACE DO Ot 789.01 ABDOMINAL PAIN, RIGHT UPPER QUADRANT 04/29/2017 SHYLA WALLACE DO Ot 789.01 ABDOMINAL PAIN, RIGHT UPPER QUADRANT 04/29/2017 SHYLA WALLACE DO Ot 553.3 DIAPHRAGMATIC HERNIA 04/29/2017 SHYLA WALLACE DO Ot 571.8 CHRONIC LIVER DIS NEC 04/29/2017 SHYLA WALLACE DO Ot 789.1 HEPATOMEGALY 04/29/2017 REINIER ADEN DO Ot V72. 84 EXAM PRE-OPERATIVE NOS 04/29/2017 FELIPE CASILLAS FACC, ALI FACP CCDS Ot 272.4 HYPERLIPIDEMIA NEC/NOS 04/29/2017 FELIPE CASILLAS FACC, ALI FACP CCDS Ot 401.9 HYPERTENSION NOS 04/29/2017 FELIPE CASILLAS FACC, ALI FACP CCDS Ot 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 NEC 04/29/2017 FELIPE CASILLAS FACC, ALI FACP [...] Ot 397.0 TRICUSPID VALVE DISEASE 04/29/2017 FELIPE CASILLAS FACC, ALI FACP CCDS Ot 401.9 HYPERTENSION NOS 04/29/2017 FELIPE CASILLAS FACC, ALI FACP CCDS Ot 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 NEC 04/29/2017 FELIPE CASILLAS FACC, ALI FACP CCDS Ot 424.0 MITRAL VALVE DISORDER 04/29/2017 FELIPE CASILLAS FACC, ALI FACP CCDS Ot 426.3 LEFT BB BLOCK NEC 04/29/2017 FELIPE CASILLAS FACC, ALI FACP CCDS Ot 786.05 SHORTNESS OF BREATH 04/29/2017 FELIPE CASILLAS FACC, ALI FACP CCDS Ot V58.69 OTH MED,LT,CURRENT USE 04/29/2017 DROYSMOISES ELECTRONIC PUBLISHER Ot V76.1 2 OTH SCREEN MAMMO-MALIGN NEOPLASM OF [place] 04/29/2017 KIM ROCA MD Ot 715. 31 LOC OSTEOARTH NOS-SHLDER 04/29/2017 KIM ROCA MD Ot 721. 0 CERVICAL SPONDYLOSIS 04/29/2017 KIM ROCA MD Ot M19. 90 UNSPECIFIED OSTEOARTHRITIS, UNSPECIFIED 04/29/2017 KIM ROCA MD Ot M47.812 SPONDYLOSIS W/O MYELOPATHY OR RADICULOPA 04/29/2017 MAME GIRARD DO Ot N81.9 FEMALE GENITAL PROLAPSE, UNSPECIFIED 04/29/2017 MAEM GIRARD DO Ot R10.2 PELVIC AND PERINEAL PAIN 04/29/2017 SHYLA WALLACE DO Ot M79.604 PAIN IN RIGHT LEG 04/29/2017 RODRIGO DOSHYLA Ot R06.02 SHORTNESS OF BREATH 04/29/2017 GELLENDER DOSHYLA Ot R53.83 OTHER FATIGUE 04/29/2017 GELLENDER DO, SHYLA Lazcano Ot R06.02 SHORTNESS OF BREATH 04/29/2017 GELLENDER DO, SHYLA Lazcano Ot R53.83 OTHER FATIGUE 04/29/2017 HELENE TEJEDA ELECTRONIC PUBLISHER Ot E78.5 HYPERLIPIDEMIA, UNSPECIFIED 04/29/2017 HELENE TEJEDA ELECTRONIC PUBLISHER Ot I 10 ESSENTIAL (PRIMARY) HYPERTENSION 04/29/2017 HELENE TEJEDA ELECTRONIC PUBLISHER Ot 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 04/29/2017 HELENE TEJEDA ELECTRONIC PUBLISHER Ot J84.10 PULMONARY FIBROSIS, UNSPECIFIED 04/29/2017 BAIMA, HELENE L ELECTRONIC PUBLISHER Ot R06.00 DYSPNEA, UNSPECIFIED 04/29/2017 BAIMA, HELENE L ELECTRONIC PUBLISHER Ot R53.83 OTHER FATIGUE 04/29/2017 BAIMA, HELENE L ELECTRONIC PUBLISHER Ot E78.4 OTHER HYPERLIPIDEMIA 04/29/2017 BAIMA, HELENE L ELECTRONIC PUBLISHER Ot I 10 ESSENTIAL (PRIMARY) HYPERTENSION 04/29/2017 BAIMA, HELENE L ELECTRONIC PUBLISHER Ot 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 04/29/2017 BAIMA, HELENE L ELECTRONIC PUBLISHER Ot I44.7 LEFT BUNDLE-BRANCH BLOCK, UNSPECIFIED 04/29/2017 BAIMA, HELENE L ELECTRONIC PUBLISHER Ot R06.09 OTHER FORMS OF DYSPNEA 04/29/2017 BAIMA, HELENE L ELECTRONIC PUBLISHER Ot R53.83 OTHER FATIGUE 04/29/2017 BAIMA, HELENE L ELECTRONIC PUBLISHER Ot E78.4 OTHER HYPERLIPIDEMIA 04/29/2017 BAIMA, HELENE L ELECTRONIC PUBLISHER Ot I 10 ESSENTIAL (PRIMARY) HYPERTENSION 04/29/2017 BAIMA, HELENE L ELECTRONIC PUBLISHER Ot 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 04/29/2017 BAIMA, HELENE L ELECTRONIC PUBLISHER Ot I44.7 LEFT BUNDLE-BRANCH BLOCK, UNSPECIFIED 04/29/2017 BAIMA, HELENE L ELECTRONIC PUBLISHER Ot R06.09 OTHER FORMS OF DYSPNEA 04/29/2017 BAIMA, HELENE L ELECTRONIC PUBLISHER Ot R53.83 OTHER FATIGUE 04/29/2017 FELIPE CASILLAS FACC, ALI FACP CCDS Ot 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 04/29/2017 FELIPE CASILLAS FACC, ALI FACP CCDS Ot J43.8 OTHER EMPHYSEMA 04/29/2017 FELIPE ROBERTSC, ALI FACP CCDS Ot 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 8 OTHER EMPHYSEMA 04/29/2017 ANA LAURA FERRER DO Ot L93. 2 OTHER LOCAL LUPUS ERYTHEMATOSUS 04/29/2017 ANA LAURA FERRER DO Ot R06. 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 04/29/2017 VANDA JONESINE Verónica FIRE SPRINKLER DESIGNER Ot R91.8 OTHER NONSPECIFIC ABNORMAL FINDING OF [place] 04/29/2017 PUSHPAMICKYDEJAP-C Ot M17.11 UNILATERAL PRIMARY OSTEOARTHRITIS, RIGHT 04/29/2017 VANDA JONESINE Verónica FIRE SPRINKLER DESIGNER Ot I27.20 PULMONARY HYPERTENSION, UNSPECIFIED 04/29/2017 VANDA JONESINE Verónica FIRE SPRINKLER DESIGNER Ot J44.9 CHRONIC OBSTRUCTIVE PULMONARY DISEASE, U 04/29/2017 VAN JONES FIRE SPRINKLER DESIGNER Ot J45.909 UNSPECIFIED ASTHMA, UNCOMPLICATED 04/29/2017 VAN JONES FIRE SPRINKLER DESIGNER Ot R06.02 SHORTNESS OF BREATH 09/21/2017 VAN JONES FIRE SPRINKLER DESIGNER Ot J44.9 CHRONIC OBSTRUCTIVE PULMONARY DISEASE, U 09/21/2017 VANDA JONESINE Verónica FIRE SPRINKLER DESIGNER Ot 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 09/21/2017 VANDA JONESINE Verónica FIRE SPRINKLER DESIGNER Ot R91.8 OTHER NONSPECIFIC ABNORMAL FINDING OF [place] 09/21/2017 VAN JONES FIRE SPRINKLER DESIGNER Ot J44.9 CHRONIC OBSTRUCTIVE PULMONARY DISEASE, U 09/21/2017 VANDA JONESINE Verónica FIRE SPRINKLER DESIGNER Ot 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 09/21/2017 VANDA JONESINE E FIRE SPRINKLER DESIGNER Ot R91.8 OTHER NONSPECIFIC ABNORMAL FINDING OF [place] 09/23/2017 MAME GIRARD DO Ot Z12.3 1 ENCNTR SCREEN MAMMOGRAM FOR MALIGNANT NE 09/23/2017 VAN JONES FIRE SPRINKLER DESIGNER Ot J44.9 CHRONIC OBSTRUCTIVE PULMONARY DISEASE, U 09/23/2017 VANDA JONESINE E FIRE SPRINKLER DESIGNER Ot 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 09/23/2017 VANDA JONESINE Verónica FIRE SPRINKLER DESIGNER Ot R91.8 OTHER NONSPECIFIC ABNORMAL FINDING OF [place] 09/23/2017 MAME GIRARD DO C Ot Z12.3 1 ENCNTR SCREEN MAMMOGRAM FOR MALIGNANT NE 09/23/2017 MAME GIRARD DO C Ot Z12.3 1 ENCNTR SCREEN MAMMOGRAM FOR MALIGNANT NE 09/24/2017 JAGDISH GIRARD DOA C Ot Z12.3 1 ENCNTR SCREEN MAMMOGRAM FOR MALIGNANT NE 10/12/2017 KARENVAN VAZ FIRE SPRINKLER DESIGNER Ot J44.9 CHRONIC OBSTRUCTIVE PULMONARY DISEASE, U 10/12/2017 KARENVANDA VAZINE E FIRE SPRINKLER DESIGNER Ot 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 10/12/2017 KARENVANDA VAZINE E FIRE SPRINKLER DESIGNER Ot R91.8 OTHER NONSPECIFIC ABNORMAL FINDING OF [place] 10/14/2017 MAEM GIRARD DO C Ot Z12.3 1 ENCNTR SCREEN MAMMOGRAM FOR MALIGNANT NE 12/14/2017 KARENVANDA VAZINE E FIRE SPRINKLER DESIGNER Ot J44.9 CHRONIC OBSTRUCTIVE PULMONARY DISEASE, U 12/14/2017 KARENVANDA VAZINE E FIRE SPRINKLER DESIGNER Ot 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 12/14/2017 VANDA JONESINE E FIRE SPRINKLER DESIGNER Ot R91.8 OTHER NONSPECIFIC ABNORMAL FINDING OF [place] 01/31/2018 BAIMA, HELENE L ELECTRONIC PUBLISHER Ot 272.4 HYPERLIPIDEMIA NEC/NOS 01/31/2018 BAIMA, HELENE L ELECTRONIC PUBLISHER Ot 272.4 HYPERLIPIDEMIA NEC/NOS 01/31/2018 BAIMA, HELENE L ELECTRONIC PUBLISHER Ot 401.9 HYPERTENSION NOS 01/31/2018 BAIMA, HELENE L ELECTRONIC PUBLISHER Ot 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 NOS TYPE VESSEL, NATIV 01/31/2018 BAIMA, HELENE L ELECTRONIC PUBLISHER Ot 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 4 HYPERLIPIDEMIA NEC/NOS 01/31/2018 ANA LAURA FERRER DO Ot 278. 00 OBESITY, NOS 01/31/2018 ANA LAURA FERRER DO Ot 401. 9 HYPERTENSION NOS 01/31/2018 ANA LAURA FERRER DO Ot 414. 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 NOS TYPE VESSEL, NATIV 01/31/2018 ANA LAURA FERRER DO Ot 416. 8 CHR PULMON HEART DIS NEC 01/31/2018 ANA LAURA FERRER DO Ot 426. 3 LEFT BB BLOCK NEC 01/31/2018 ANA LAURA FERRER DO Ot 428. 0 CONGESTIVE HEART FAILURE NOS 01/31/2018 ANA LAURA FERRER DO Ot 493. 90 ASTHMA, UNSPECIFIED 01/31/2018 CARISSA PEDRAZA ANA LAURA Oscar Ot 780. 54 HYPERSOMNIA, UNSPECIFIED 01/31/2018 ANA LAURA FERRER DO Ot 786. 05 SHORTNESS OF BREATH 01/31/2018 MIKALARADHAMESLINDSAY DO SHYLA Jaleesa Ot 786.05 SHORTNESS OF BREATH 01/31/2018 SHYLA WALLACE DO Ot 786.50 CHEST PAIN NOS 01/31/2018 HELENE TEJEDA ELECTRONIC PUBLISHER Ot 272.4 HYPERLIPIDEMIA NEC/NOS 01/31/2018 HELENE TEJEDA ELECTRONIC PUBLISHER Ot 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 NOS TYPE VESSEL, NATIV 01/31/2018 HELENE TEJEDA ELECTRONIC PUBLISHER Ot V58.69 OTH MED,LT,CURRENT USE 01/31/2018 SHAJI PEDRZAA MAME Kelly Ot V76.1 2 OTH SCREEN MAMMO-MALIGN NEOPLASM OF [place] 01/31/2018 SHYLA WALLACE DO Ot 789.01 ABDOMINAL PAIN, RIGHT UPPER QUADRANT 01/31/2018 SHYLA WALLACE DO Ot 789.01 ABDOMINAL PAIN, RIGHT UPPER QUADRANT 01/31/2018 SHYLA WALLACE DO Ot 553.3 DIAPHRAGMATIC HERNIA 01/31/2018 SHYLA WALLACE DO Ot 571.8 CHRONIC LIVER DIS NEC 01/31/2018 SHYLA WALLACE DO Ot 789.1 HEPATOMEGALY 01/31/2018 REINIER ADEN DO Ot V72. 84 EXAM PRE-OPERATIVE NOS 01/31/2018 FELIPE CASILLAS FACC, ALI FACP CCDS Ot 272.4 HYPERLIPIDEMIA NEC/NOS 01/31/2018 FELIPE ROBERTSC, ALI FACP CCDS Ot 401.9 HYPERTENSION NOS 01/31/2018 FELIPE MD FACC, ALI FACP CCDS Ot 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 NEC 01/31/2018 FELIPE MD FACC, ALI FACP CCDS Ot 426.3 LEFT BB BLOCK NEC 01/31/2018 FELIPE MD FACC, ALI FACP CCDS Ot 786.05 SHORTNESS OF BREATH 01/31/2018 FELIPE MD FACC, ALI FACP CCDS Ot 786.59 CHEST PAIN NEC 01/31/2018 FELIPE MD FACC, ALI FACP CCDS Ot V58.69 OTH MED,LT,CURRENT USE 01/31/2018 FELIPE MD FACC, ALI FACP CCDS Ot 272.4 HYPERLIPIDEMIA NEC/NOS 01/31/2018 FELIPE MD FACC, ALI FACP CCDS Ot 397.0 TRICUSPID VALVE DISEASE 01/31/2018 FELIPE MD FACC, ALI FACP CCDS Ot 401.9 HYPERTENSION NOS 01/31/2018 FELIPE MD FACC, ALI FACP CCDS Ot 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 NEC 01/31/2018 FELIPE MD FACC, ALI FACP CCDS Ot 424.0 MITRAL VALVE DISORDER 01/31/2018 FELIPE MD FACC, ALI FACP CCDS Ot 426.3 LEFT BB BLOCK NEC 01/31/2018 FELIPE MD FACC, ALI FACP CCDS Ot 786.05 SHORTNESS OF BREATH 01/31/2018 FELIPE CASILLAS FACC, ALI FACP CCDS Ot V58.69 OTH MED,LT,CURRENT USE 01/31/2018 MOISES SAUL ELECTRONIC PUBLISHER Ot V76.1 2 OTH SCREEN MAMMO-MALIGN NEOPLASM OF [place] 01/31/2018 KIM ROCA MD Ot 715. 31 LOC OSTEOARTH NOS-SHLDER 01/31/2018 KIM ROCA MD Ot 721. 0 CERVICAL SPONDYLOSIS 01/31/2018 KIM ROCA MD Ot M19. 90 UNSPECIFIED OSTEOARTHRITIS, UNSPECIFIED 01/31/2018 KIM ROCA MD Ot M47.812 SPONDYLOSIS W/O MYELOPATHY OR RADICULOPA 01/31/2018 MAME GIRARD DO Ot N81.9 FEMALE GENITAL PROLAPSE, UNSPECIFIED 01/31/2018 MAME GIRARD DO Ot R10.2 PELVIC AND PERINEAL PAIN 01/31/2018 GELLENDER DO, SHYLA Lazcano Ot M79.604 PAIN IN RIGHT LEG 01/31/2018 GELLENDER DO, SHYLA Lazcano Ot R06.02 SHORTNESS OF BREATH 01/31/2018 GELLENDER DO, SHYLA Lazcano Ot R53.83 OTHER FATIGUE 01/31/2018 GELLENDER DO, SHYLA Lazcano Ot R06.02 SHORTNESS OF BREATH 01/31/2018 GELLENDER DO, SHYLA Lazcano Ot R53.83 OTHER FATIGUE 01/31/2018 BAIMA, HELENE L ELECTRONIC PUBLISHER Ot E78.5 HYPERLIPIDEMIA, UNSPECIFIED 01/31/2018 BAIMA, HELENE L ELECTRONIC PUBLISHER Ot I 10 ESSENTIAL (PRIMARY) HYPERTENSION 01/31/2018 BAIMA, HELENE L ELECTRONIC PUBLISHER Ot 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 01/31/2018 BAIMA, HELENE L ELECTRONIC PUBLISHER Ot J84.10 PULMONARY FIBROSIS, UNSPECIFIED 01/31/2018 BAIMA, HELENE L ELECTRONIC PUBLISHER Ot R06.00 DYSPNEA, UNSPECIFIED 01/31/2018 BAIMA, HELENE L ELECTRONIC PUBLISHER Ot R53.83 OTHER FATIGUE 01/31/2018 BAIMA, HELENE L ELECTRONIC PUBLISHER Ot E78.4 OTHER HYPERLIPIDEMIA 01/31/2018 BAIMA, HELENE L ELECTRONIC PUBLISHER Ot I 10 ESSENTIAL (PRIMARY) HYPERTENSION 01/31/2018 BAIMA, HELENE L ELECTRONIC PUBLISHER Ot 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 01/31/2018 BAIMA, HELENE L ELECTRONIC PUBLISHER Ot I44.7 LEFT BUNDLE-BRANCH BLOCK, UNSPECIFIED 01/31/2018 BAIMA, HELENE L ELECTRONIC PUBLISHER Ot R06.09 OTHER FORMS OF DYSPNEA 01/31/2018 BAIMA, HELENE L ELECTRONIC PUBLISHER Ot R53.83 OTHER FATIGUE 01/31/2018 BAIMA, HELENE L ELECTRONIC PUBLISHER Ot E78.4 OTHER HYPERLIPIDEMIA 01/31/2018 BAIMA, HELENE L ELECTRONIC PUBLISHER Ot I 10 ESSENTIAL (PRIMARY) HYPERTENSION 01/31/2018 BAIMA, HLEENE L ELECTRONIC PUBLISHER Ot 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 01/31/2018 BAIMA, HELENE L ELECTRONIC PUBLISHER Ot I44.7 LEFT BUNDLE-BRANCH BLOCK, UNSPECIFIED 01/31/2018 BAIMA, HELENE L ELECTRONIC PUBLISHER Ot R06.09 OTHER FORMS OF DYSPNEA 01/31/2018 BAIMA, HELENE L ELECTRONIC PUBLISHER Ot R53.83 OTHER FATIGUE 01/31/2018 FELIPE CASILLAS FACC, ALI FACP CCDS Ot 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 01/31/2018 FELIPE CASILLAS FACC, ALI FACP CCDS Ot J43.8 OTHER EMPHYSEMA 01/31/2018 FELIPE CASILLAS FACC, ALI FACP CCDS Ot 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 01/31/2018 FELIPE CASILLAS FACC, ALI FACP CCDS Ot R06.02 SHORTNESS OF BREATH 01/31/2018 FELIPE CASILLAS FACC, ALI FACP CCDS Ot R53.83 OTHER FATIGUE 01/31/2018 GELLENDER DO, SHYLA A Ot R05 COUGH 01/31/2018 GELLENDER DO, SHYLA A Ot R09.89 OTH SYMPTOMS AND SIGNS INVOLVING THE CIR 01/31/2018 ANA LAURA FERRER DO Ot J43. 8 OTHER EMPHYSEMA 01/31/2018 ANA LAURA FERRER DO Ot L93. 2 OTHER LOCAL LUPUS ERYTHEMATOSUS 01/31/2018 ANA LAURA FERRER DO Ot R06. 02 SHORTNESS OF BREATH 01/31/2018 MAME GIRARD DO Ot Z12.3 1 ENCNTR SCREEN MAMMOGRAM FOR MALIGNANT NE 01/31/2018 VAN JONES APRN Ot J44.9 CHRONIC OBSTRUCTIVE PULMONARY DISEASE, U 01/31/2018 VAN JONES APRN Ot J45.909 UNSPECIFIED ASTHMA, UNCOMPLICATED 01/31/2018 VAN JONES FIRE SPRINKLER DESIGNER Ot 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 01/31/2018 VAN JONES FIRE SPRINKLER DESIGNER Ot R91.8 OTHER NONSPECIFIC ABNORMAL FINDING OF [place] 01/31/2018 VAN JONES APRN Ot J44.9 CHRONIC OBSTRUCTIVE PULMONARY DISEASE, U 01/31/2018 VAN JONES FIRE SPRINKLER DESIGNER Ot 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 01/31/2018 VAN JONES FIRE SPRINKLER DESIGNER Ot R91.8 OTHER NONSPECIFIC ABNORMAL FINDING OF [place] 01/31/2018 DEJA PARKS-C Ot M17.11 UNILATERAL PRIMARY OSTEOARTHRITIS, RIGHT 01/31/2018 VAN JONES FIRE SPRINKLER DESIGNER Ot I27.20 PULMONARY HYPERTENSION, UNSPECIFIED 01/31/2018 VAN JONES FIRE SPRINKLER DESIGNER Ot J44.9 CHRONIC OBSTRUCTIVE PULMONARY DISEASE, U 01/31/2018 VAN JONES FIRE SPRINKLER DESIGNER Ot J45.909 UNSPECIFIED ASTHMA, UNCOMPLICATED 01/31/2018 VAN JONES FIRE SPRINKLER DESIGNER Ot R06.02 SHORTNESS OF BREATH 01/31/2018 MAME GIRARD DO Ot Z12.3 1 ENCNTR SCREEN MAMMOGRAM FOR MALIGNANT NE 02/02/2018 GELLENDER DO, SHYLA Jaleesa Ot N28.9 DISORDER OF KIDNEY AND URETER, UNSPECIFI 02/03/2018 GELLENDER DO, SHYLA A Ot K59.00 CONSTIPATION, UNSPECIFIED 02/03/2018 GELLENDER DO, [...] I10 ESSENTIAL (PRIMARY) HYPERTENSION 07/26/2018 FELIPE CASILLAS FAC, ALI FACP CCDS Ot R06.02 SHORTNESS OF BREATH 08/16/2018 FELIPE CASILLAS FAC, ALI FACP CCDS Ot E78.5 HYPERLIPIDEMIA, UNSPECIFIED 08/16/2018 FELIPE CASILLAS FAC, ALI FACP CCDS Ot I10 ESSENTIAL (PRIMARY) HYPERTENSION 08/16/2018 FELIPE CASILLAS [facility], ALI FACP CCDS Ot R06.02 SHORTNESS OF BREATH 09/16/2018 MAME GIRARD DO Ot Z12.3 1 ENCNTR SCREEN MAMMOGRAM FOR MALIGNANT NE 09/27/2018 MAME GIRARD DO Ot Z12.3 1 ENCNTR SCREEN MAMMOGRAM FOR MALIGNANT NE 10/05/2018 REINIER ADEN DO Ot Z01.818 ENCOUNTER FOR OTHER PREPROCEDURAL EXAMIN 10/05/2018 VAN JONES APRN Ot I27.20 PULMONARY HYPERTENSION, UNSPECIFIED 10/05/2018 VAN JONES APRN Ot J44.9 CHRONIC OBSTRUCTIVE PULMONARY DISEASE, U 10/05/2018 VAN JONES APRN Ot J45.909 UNSPECIFIED ASTHMA, UNCOMPLICATED 10/05/2018 VAN JONES APRN Ot R06.02 SHORTNESS OF BREATH 10/05/2018 REINIER ADEN DO Ot Z01.818 ENCOUNTER FOR OTHER PREPROCEDURAL EXAMIN 10/05/2018 ADEN REINIER PEDRAZA Ot Z01.818 ENCOUNTER FOR OTHER PREPROCEDURAL EXAMIN 10/05/2018 ADEN REINIER PEDRAZA Ot Z01.818 ENCOUNTER FOR OTHER PREPROCEDURAL EXAMIN 10/05/2018 REINIER ADEN DO Ot Z01.818 ENCOUNTER FOR OTHER PREPROCEDURAL EXAMIN 10/07/2018 MIKALARADHAMESLINDSAY SHYLA PEDRAZA Ot 786.05 SHORTNESS OF BREATH 10/07/2018 MIKALARADHAMESLINDSAY SHYLA PEDRAZA Ot 786.50 CHEST PAIN NOS 10/07/2018 HELENE TEJEDA ELECTRONIC PUBLISHER Ot 272.4 HYPERLIPIDEMIA NEC/NOS 10/07/2018 HEELNE TEJEDA ELECTRONIC PUBLISHER Ot 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 NOS TYPE VESSEL, NATIV 10/07/2018 HELENE TEJEDA ELECTRONIC PUBLISHER Ot V58.69 OTH MED,LT,CURRENT USE 10/07/2018 MAME GIRARD DO Ot V76.1 2 OTH SCREEN MAMMO-MALIGN NEOPLASM OF [place] 10/07/2018 RODRIGO PEDRAZASHYLA Ot 789.01 ABDOMINAL PAIN, RIGHT UPPER QUADRANT 10/07/2018 RODRIGO PEDRAZASHYLA Ot 789.01 ABDOMINAL PAIN, RIGHT UPPER QUADRANT 10/07/2018 RODRIGO SHYLA PEDRAZA Ot 553.3 DIAPHRAGMATIC HERNIA 10/07/2018 MIKALARADHAMESLINDSAY SHYLA PEDRAZA Ot 571.8 CHRONIC LIVER DIS NEC 10/07/2018 RODRIGO SHYLA PEDRAZA Ot 789.1 HEPATOMEGALY 10/07/2018 REINIER ADEN DO Ot V72. 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 10/07/2018 FELIPE CASILLAS FACC, ALI FACP CCDS Ot 786.05 SHORTNESS OF BREATH 10/07/2018 FELIPE MD FACC, ALI FACP CCDS Ot 786.59 CHEST PAIN NEC 10/07/2018 FELIPE MD FACC, ALI FACP CCDS Ot V58.69 OTH MED,LT,CURRENT USE 10/07/2018 FELIPE CASILLAS FACC, ALI FACP CCDS Ot 272.4 HYPERLIPIDEMIA NEC/NOS 10/07/2018 FELIPE MD FACC, ALI FACP CCDS Ot 397.0 TRICUSPID VALVE DISEASE 10/07/2018 FELIPE MD FACC, ALI FACP CCDS Ot 401.9 HYPERTENSION NOS 10/07/2018 FELIPE FACC, ALI FACP CCDS Ot 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 NEC 10/07/2018 FELIPE MD FACC, ALI FACP CCDS Ot 424.0 MITRAL VALVE DISORDER 10/07/2018 FELIPE MD FACC, ALI FACP CCDS Ot 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 31 LOC OSTEOARTH NOS-SHLDER 10/07/2018 KIM ROCA MD Ot 721. 0 CERVICAL SPONDYLOSIS 10/07/2018 KIM ROCA MD Ot M19. 90 UNSPECIFIED OSTEOARTHRITIS, UNSPECIFIED 10/07/2018 KIM ROCA MD Ot M47.812 SPONDYLOSIS W/O MYELOPATHY OR RADICULOPA 10/07/2018 MAME GIRARD DO Ot N81.9 FEMALE GENITAL PROLAPSE, UNSPECIFIED 10/07/2018 MAME GIRARD DO Ot R10.2 PELVIC AND PERINEAL PAIN 10/07/2018 SHYLA WALLACE DO Ot M79.604 PAIN IN RIGHT LEG 10/07/2018 SHYLA WALLACE DO Ot R06.02 SHORTNESS OF BREATH 10/07/2018 SHYLA WALLACE DO A Ot R53.83 OTHER FATIGUE 10/07/2018 GELLENDER DO, SHYLA A Ot R06.02 SHORTNESS OF BREATH 10/07/2018 GELLENDER DO, SHYLA A Ot R53.83 OTHER FATIGUE 10/07/2018 BAIMA, HELENE L ELECTRONIC PUBLISHER Ot E78.5 HYPERLIPIDEMIA, UNSPECIFIED 10/07/2018 BAIMA, HELENE L ELECTRONIC PUBLISHER Ot I 10 ESSENTIAL (PRIMARY) HYPERTENSION 10/07/2018 BAIMA, HELENE L ELECTRONIC PUBLISHER Ot 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 10/07/2018 BAIMA, HELENE L ELECTRONIC PUBLISHER Ot J84.10 PULMONARY FIBROSIS, UNSPECIFIED 10/07/2018 BAIMA, HELENE L ELECTRONIC PUBLISHER Ot R06.00 DYSPNEA, UNSPECIFIED 10/07/2018 BAIMA, HELENE L ELECTRONIC PUBLISHER Ot R53.83 OTHER FATIGUE 10/07/2018 BAIMA, HELENE L ELECTRONIC PUBLISHER Ot E78.4 OTHER HYPERLIPIDEMIA 10/07/2018 BAIMA, HELENE L ELECTRONIC PUBLISHER Ot I 10 ESSENTIAL (PRIMARY) HYPERTENSION 10/07/2018 BAIMA, HELENE L ELECTRONIC PUBLISHER Ot 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 10/07/2018 BAIMA, HELENE L ELECTRONIC PUBLISHER Ot I44.7 LEFT BUNDLE-BRANCH BLOCK, UNSPECIFIED 10/07/2018 BAIMA, HELENE L ELECTRONIC PUBLISHER Ot R06.09 OTHER FORMS OF DYSPNEA 10/07/2018 BAIMA, HELENE L ELECTRONIC PUBLISHER Ot R53.83 OTHER FATIGUE 10/07/2018 BAIMA, HELENE L ELECTRONIC PUBLISHER Ot E78.4 OTHER HYPERLIPIDEMIA 10/07/2018 BAIMA, HELENE L ELECTRONIC PUBLISHER Ot I 10 ESSENTIAL (PRIMARY) HYPERTENSION 10/07/2018 BAIMA, HELENE L ELECTRONIC PUBLISHER Ot 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 10/07/2018 BAIMA, HELENE L ELECTRONIC PUBLISHER Ot I44.7 LEFT BUNDLE-BRANCH BLOCK, UNSPECIFIED 10/07/2018 BAIMA, HELENE L ELECTRONIC PUBLISHER Ot R06.09 OTHER FORMS OF DYSPNEA 10/07/2018 BAIMA, HELENE L ELECTRONIC PUBLISHER Ot R53.83 OTHER FATIGUE 10/07/2018 FELIPE CASILLAS FACC, ALI FACP CCDS Ot 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 10/07/2018 FELIPE CASILLAS FACC, ALI FACP CCDS Ot J43.8 OTHER EMPHYSEMA 10/07/2018 FELIPE CASILLAS [facility] CCDS Ot 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 8 OTHER EMPHYSEMA 10/07/2018 ANA LAURA FERRER DO Ot L93. 2 OTHER LOCAL LUPUS ERYTHEMATOSUS 10/07/2018 ANA LAURA FERRER DO Ot R06. 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 10/07/2018 VAN JONES APRN Ot R91.8 OTHER NONSPECIFIC ABNORMAL FINDING OF [place] 10/07/2018 DEJA PARKS OVEN ROASTER-C Ot M17.11 UNILATERAL PRIMARY OSTEOARTHRITIS, RIGHT 10/07/2018 VAN JONES APRN Ot I27.20 PULMONARY HYPERTENSION, UNSPECIFIED 10/07/2018 VAN JONES APRN Ot J44.9 CHRONIC OBSTRUCTIVE PULMONARY DISEASE, U 10/07/2018 VAN JONES APRN Ot J45.909 UNSPECIFIED ASTHMA, UNCOMPLICATED 10/07/2018 VAN JONES APRN Ot R06.02 SHORTNESS OF BREATH 10/07/2018 MAME GIRRAD DO Ot Z12.3 1 ENCNTR SCREEN MAMMOGRAM FOR MALIGNANT NE 10/07/2018 SHYLA WALLACE DO Ot K59.00 CONSTIPATION, UNSPECIFIED 10/07/2018 RODRIGO PEDRAZA, SHYLA Lazcano Ot K63.89 OTHER SPECIFIED DISEASES OF INTESTINE 10/07/2018 SHYLA WALLACE DO Ot N28.9 DISORDER OF KIDNEY AND URETER, UNSPECIFI 10/07/2018 FELIPE CASILLAS FAC, ALI [facility] CCDS Ot E78.5 HYPERLIPIDEMIA, UNSPECIFIED 10/07/2018 FELIPE CASILLAS FAC, ALI FAC CCDS Ot I10 ESSENTIAL (PRIMARY) HYPERTENSION 10/07/2018 FELIPE CASILLAS [facility], AL[facility] CCDS Ot R06.02 SHORTNESS OF BREATH 10/07/2018 MAME GIRARD DO Ot Z12.3 1 ENCNTR SCREEN MAMMOGRAM FOR MALIGNANT NE 10/11/2018 MAME GIRARD DO Ot Z12.3 1 ENCNTR SCREEN MAMMOGRAM FOR MALIGNANT NE 10/11/2018 REINIER ADEN DO Ot E78. 5 HYPERLIPIDEMIA, UNSPECIFIED 10/11/2018 REINIER ADEN DO Ot F32. 9 MAJOR DEPRESSIVE DISORDER, SINGLE EPISOD 10/11/2018 REINIER ADEN DO Ot F41. 9 ANXIETY DISORDER, UNSPECIFIED 10/11/2018 REINIER ADEN DO Ot G47. 33 OBSTRUCTIVE SLEEP APNEA (ADULT) (PEDIATR 10/11/2018 REINIER ADEN DO Ot I11. 0 HYPERTENSIVE HEART DISEASE WITH HEART FA 10/11/2018 REINIER ADEN DO Ot I25. 10 ATHSCL HEART DISEASE OF [place] CORONARY 10/11/2018 REINIER ADEN DO Ot I27. 20 PULMONARY HYPERTENSION, UNSPECIFIED 10/11/2018 REINIER ADEN DO Ot I50. 9 HEART FAILURE, UNSPECIFIED 10/11/2018 REINIER ADEN DO Ot J44. 9 CHRONIC OBSTRUCTIVE PULMONARY DISEASE, U 10/11/2018 REINIER ADEN DO Ot K21. 9 GASTRO-ESOPHAGEAL REFLUX DISEASE WITHOUT 10/11/2018 REINIER ADEN DO Ot K44. 9 DIAPHRAGMATIC HERNIA WITHOUT OBSTRUCTION 10/11/2018 REINIER ADEN DO Ot K57. 30 DVRTCLOS OF LG INT W/O PERFORATION OR AB 10/11/2018 REINIER ADEN DO Ot K64. 8 OTHER HEMORRHOIDS 10/11/2018 REINIER ADEN DO Ot Z79. 82 INTERMEDIATE (CURRENT) USE OF ASPIRIN 10/11/2018 REINIER ADEN DO Ot Z79.899 OTHER SAW CLEANER (CURRENT) DRUG THERAPY 10/11/2018 REINIER ADEN DO Ot Z95. 5 PRESENCE OF CORONARY ANGIOPLASTY IMPLANT 10/18/2018 REINIER ADEN DO Ot E78. 5 HYPERLIPIDEMIA, UNSPECIFIED 10/18/2018 REINIER ADEN DO Ot F32. 9 MAJOR DEPRESSIVE DISORDER, SINGLE EPISOD 10/18/2018 REINIER ADEN DO Ot F41. 9 ANXIETY DISORDER, UNSPECIFIED 10/18/2018 REINIER ADEN DO Ot G47. 33 OBSTRUCTIVE SLEEP APNEA (ADULT) (PEDIATR 10/18/2018 REINIER ADEN DO Ot I11. 0 HYPERTENSIVE HEART DISEASE WITH HEART FA 10/18/2018 REINIER ADEN DO Ot I25. 10 ATHSCL HEART DISEASE OF [place] CORONARY 10/18/2018 REINIER ADEN DO Ot I27. 20 PULMONARY HYPERTENSION, UNSPECIFIED 10/18/2018 REINIER ADEN DO Ot I50. 9 HEART FAILURE, UNSPECIFIED 10/18/2018 REINIER ADEN DO Ot J44. 9 CHRONIC OBSTRUCTIVE PULMONARY DISEASE, U 10/18/2018 REINIER ADEN DO Ot K21. 9 GASTRO-ESOPHAGEAL REFLUX DISEASE WITHOUT 10/18/2018 REINIER ADEN DO Ot K44. 9 DIAPHRAGMATIC HERNIA WITHOUT OBSTRUCTION 10/18/2018 REINIER ADEN DO Ot K57. 30 DVRTCLOS OF LG INT W/O PERFORATION OR AB 10/18/2018 REINIER ADEN DO Ot K64. 8 OTHER HEMORRHOIDS 10/18/2018 REINIER ADEN DO Ot Z79. 82 INTERMEDIATE (CURRENT) USE OF ASPIRIN 10/18/2018 REINIER ADEN DO Ot Z79.899 OTHER INTERMEDIATE (CURRENT) DRUG THERAPY 10/18/2018 REINIER ADEN DO Ot Z95. 5 PRESENCE OF CORONARY ANGIOPLASTY IMPLANT 10/19/2018 MAME GIRARD DO Ot Z12.3 1 ENCNTR SCREEN MAMMOGRAM FOR MALIGNANT NE 10/20/2018 REINIER ADEN DO Ot E78. 5 HYPERLIPIDEMIA, UNSPECIFIED 10/20/2018 REINIER ADEN DO Ot F32. 9 MAJOR DEPRESSIVE DISORDER, SINGLE EPISOD 10/20/2018 REINIER ADEN DO Ot F41. 9 ANXIETY DISORDER, UNSPECIFIED 10/20/2018 REINIER ADEN DO Ot G47. 33 OBSTRUCTIVE SLEEP APNEA (ADULT) (PEDIATR 10/20/2018 REINIER ADEN DO Ot I11. 0 HYPERTENSIVE HEART DISEASE WITH HEART FA 10/20/2018 REINIER ADEN DO Ot I25. 10 ATHSCL HEART DISEASE OF [place] CORONARY 10/20/2018 REINIER ADEN DO Ot I27. 20 PULMONARY HYPERTENSION, UNSPECIFIED 10/20/2018 REINIER ADEN DO Ot I50. 9 HEART FAILURE, UNSPECIFIED 10/20/2018 REINIER ADEN DO Ot J44. 9 CHRONIC OBSTRUCTIVE PULMONARY DISEASE, U 10/20/2018 REINIER ADEN DO Ot K21. 9 GASTRO-ESOPHAGEAL REFLUX DISEASE WITHOUT 10/20/2018 REINIER ADEN DO Ot K44. 9 DIAPHRAGMATIC HERNIA WITHOUT OBSTRUCTION 10/20/2018 REINIER ADEN DO Ot K57. 30 DVRTCLOS OF LG INT W/O PERFORATION OR AB 10/20/2018 REINIER ADEN DO Ot K64. 8 OTHER HEMORRHOIDS 10/20/2018 REINIER ADEN DO Ot Z79. 82 SAW CLEANER (CURRENT) USE OF ASPIRIN 10/20/2018 REINIER ADEN DO Ot Z79.899 OTHER SAW CLEANER (CURRENT) DRUG THERAPY 10/20/2018 REINIER ADEN DO Ot Z95. 5 PRESENCE OF CORONARY ANGIOPLASTY IMPLANT 11/04/2018 REINIER ADEN DO Ot R10.816 EPIGASTRIC ABDOMINAL TENDERNESS 11/21/2018 SHYLA WALLACE DO Ot 786.05 SHORTNESS OF BREATH 11/21/2018 SHYLA WALLACE DO Ot 786.50 CHEST PAIN NOS 11/21/2018 MAME GIRARD DO Ot V76.1 2 OTH SCREEN MAMMO-MALIGN NEOPLASM OF [place] 11/21/2018 SHYLA WALLACE DO Ot 789.01 ABDOMINAL PAIN, RIGHT UPPER QUADRANT 11/21/2018 SHYLA WALLACE DO Ot 789.01 ABDOMINAL PAIN, RIGHT UPPER QUADRANT 11/21/2018 SHYLA WALLACE DO Ot 553.3 DIAPHRAGMATIC HERNIA 11/21/2018 SHYLA WALLACE DO Ot 571.8 CHRONIC LIVER DIS NEC 11/21/2018 SHYLA WALLACE DO Ot 789.1 HEPATOMEGALY 11/21/2018 REINIER ADEN DO Ot V72. 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 11/21/2018 FELIPE CASILLAS FACC, ALI FACP CCDS Ot 786.05 SHORTNESS OF BREATH 11/21/2018 FELIPE CASILLAS FACC, ALI FACP CCDS Ot 786.59 CHEST PAIN NEC 11/21/2018 FELIPE CASILLAS FACC, ALI FACP CCDS Ot V58.69 OTH MED,LT,CURRENT USE 11/21/2018 FELIPE CASILLAS FACC, ALI FACP CCDS Ot 272.4 HYPERLIPIDEMIA NEC/NOS 11/21/2018 FELIPE CASILLAS FACC, ALI FACP CCDS Ot 397.0 TRICUSPID VALVE DISEASE 11/21/2018 FELIPE CASILLAS FACC, ALI FACP CCDS Ot 401.9 HYPERTENSION NOS 11/21/2018 FELIPE CASILLAS FACC, ALI FACP CCDS Ot 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 NEC 11/21/2018 FELIPE CASILLAS FACC, ALI FACP CCDS Ot 424.0 MITRAL VALVE DISORDER 11/21/2018 FELIPE CASILLAS FACC, ALI FACP CCDS Ot 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 31 LOC OSTEOARTH NOS-SHLDER 11/21/2018 CHANELLE CASILLAS, KIM Ruff Ot 721. 0 CERVICAL SPONDYLOSIS 11/21/2018 CHANELLE CASILLAS, KIM Ruff Ot M19. 90 UNSPECIFIED OSTEOARTHRITIS, UNSPECIFIED 11/21/2018 CHANELLE CASILLAS, KIM Ruff Ot M47.812 SPONDYLOSIS W/O MYELOPATHY OR RADICULOPA 11/21/2018 SHAJI PEDRAZA, MAME Kelly Ot N81.9 FEMALE GENITAL PROLAPSE, UNSPECIFIED 11/21/2018 GIRARD DO, MAME Kelly Ot R10.2 PELVIC AND PERINEAL PAIN 11/21/2018 GELLENDER DO, SHYLA Jaleesa Ot M79.604 PAIN IN RIGHT LEG 11/21/2018 GELLENDER DO, SHYLA A Ot R06.02 SHORTNESS OF BREATH 11/21/2018 GELLENDER DO, SHYLA A Ot R53.83 OTHER FATIGUE 11/21/2018 GELLENDER DO, SHYLA A Ot R06.02 SHORTNESS OF BREATH 11/21/2018 GELLENDER DO, SHYLA A Ot R53.83 OTHER FATIGUE 11/21/2018 BAIMA, HELENE L ELECTRONIC PUBLISHER Ot E78.5 HYPERLIPIDEMIA, UNSPECIFIED 11/21/2018 BAIMA, HELENE L ELECTRONIC PUBLISHER Ot I 10 ESSENTIAL (PRIMARY) HYPERTENSION 11/21/2018 BAIMA, HELENE L ELECTRONIC PUBLISHER Ot 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 11/21/2018 BAIMA, HELENE L ELECTRONIC PUBLISHER Ot J84.10 PULMONARY FIBROSIS, UNSPECIFIED 11/21/2018 BAIMA, HELENE L ELECTRONIC PUBLISHER Ot R06.00 DYSPNEA, UNSPECIFIED 11/21/2018 BAIMA, HELENE L ELECTRONIC PUBLISHER Ot R53.83 OTHER FATIGUE 11/21/2018 BAIMA, HELENE L ELECTRONIC PUBLISHER Ot E78.4 OTHER HYPERLIPIDEMIA 11/21/2018 BAIMA, HELENE L ELECTRONIC PUBLISHER Ot I 10 ESSENTIAL (PRIMARY) HYPERTENSION 11/21/2018 BAIMA, HELENE L ELECTRONIC PUBLISHER Ot 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 11/21/2018 BAIMA, HELENE L ELECTRONIC PUBLISHER Ot I44.7 LEFT BUNDLE-BRANCH BLOCK, UNSPECIFIED 11/21/2018 BAIMA, HELENE L ELECTRONIC PUBLISHER Ot R06.09 OTHER FORMS OF DYSPNEA 11/21/2018 BAIMA, HELENE L ELECTRONIC PUBLISHER Ot R53.83 OTHER FATIGUE 11/21/2018 BAIMA, HELENE L ELECTRONIC PUBLISHER Ot E78.4 OTHER HYPERLIPIDEMIA 11/21/2018 HELENE TEJEDA ELECTRONIC PUBLISHER Ot I 10 ESSENTIAL (PRIMARY) HYPERTENSION 11/21/2018 HELENE TEJEDA ELECTRONIC PUBLISHER Ot 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 11/21/2018 HELENE TEJEDA ELECTRONIC PUBLISHER Ot I44.7 LEFT BUNDLE-BRANCH BLOCK, UNSPECIFIED 11/21/2018 HELENE TEJEDA ELECTRONIC PUBLISHER Ot R06.09 OTHER FORMS OF DYSPNEA 11/21/2018 HELENE TEJEDA ELECTRONIC PUBLISHER Ot R53.83 OTHER FATIGUE 11/21/2018 FELIPE CASILLAS FAC, ALI FACP CCDS Ot 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 11/21/2018 FELIPE CASILLAS [facility], ALI FACP CCDS Ot J43.8 OTHER EMPHYSEMA 11/21/2018 FELIPE CASILLAS [facility], ALI FACP CCDS Ot 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 8 OTHER EMPHYSEMA 11/21/2018 ANA LAURA FERRER DO Ot L93. 2 OTHER LOCAL LUPUS ERYTHEMATOSUS 11/21/2018 ANA LAURA FERRER DO Ot R06. 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 11/21/2018 VAN JONES FIRE SPRINKLER DESIGNER Ot R91.8 OTHER NONSPECIFIC ABNORMAL FINDING OF [place] 11/21/2018 DEJA PARKS OVEN ROASTER-C Ot M17.11 UNILATERAL PRIMARY OSTEOARTHRITIS, RIGHT 11/21/2018 VAN JONES APRN Ot I27.20 PULMONARY HYPERTENSION, UNSPECIFIED 11/21/2018 VAN JONES APRN Ot J44.9 CHRONIC OBSTRUCTIVE PULMONARY DISEASE, U 11/21/2018 VAN JONES APRN Ot J45.909 UNSPECIFIED ASTHMA, UNCOMPLICATED 11/21/2018 VAN JONES APRN Ot R06.02 SHORTNESS OF BREATH 11/21/2018 MAME GIRARD DO Ot Z12.3 1 ENCNTR SCREEN MAMMOGRAM FOR MALIGNANT NE 11/21/2018 MIKALALENDER SHYLA PEDRAZA A Ot K59.00 CONSTIPATION, UNSPECIFIED 11/21/2018 GELLENDER DO, SHYLA A Ot K63.89 OTHER SPECIFIED DISEASES OF INTESTINE 11/21/2018 GELLENDER DO, SHYLA A Ot N28.9 DISORDER OF KIDNEY AND URETER, UNSPECIFI 11/21/2018 FELIPE CASILLAS FAC, ALI FACP CCDS Ot E78.5 HYPERLIPIDEMIA, UNSPECIFIED 11/21/2018 FELIPE CASILLAS FAC, ALI FACP CCDS Ot I10 ESSENTIAL (PRIMARY) HYPERTENSION 11/21/2018 FELIPE CASILALS FAC, ALI FACP CCDS Ot R06.02 SHORTNESS OF BREATH 11/21/2018 MAME GIRARD DO Ot Z12.3 1 ENCNTR SCREEN MAMMOGRAM FOR MALIGNANT NE 11/21/2018 ADEN DO, REINIER D Ot R10.816 EPIGASTRIC ABDOMINAL TENDERNESS 11/23/2018 ADEN DO, REINIER D Ot R10.816 EPIGASTRIC ABDOMINAL TENDERNESS 11/25/2018 ADEN DO, REINIER D Ot R10.816 EPIGASTRIC ABDOMINAL TENDERNESS 11/29/2018 ADEN DO, REINIER D Ot R10.816 EPIGASTRIC ABDOMINAL TENDERNESS 11/29/2018 VAN JONES APRN Ot I27.20 PULMONARY HYPERTENSION, UNSPECIFIED 11/29/2018 VAN JONES APRN Ot J44.9 CHRONIC OBSTRUCTIVE PULMONARY DISEASE, U 11/29/2018 VAN JONES APRN Ot J45.909 UNSPECIFIED ASTHMA, UNCOMPLICATED 11/29/2018 VAN JONES APRN Ot R06.02 SHORTNESS OF BREATH 11/29/2018 REINIER ADEN DO Ot Z01.818 ENCOUNTER FOR OTHER PREPROCEDURAL EXAMIN 11/30/2018 REINIER ADEN DO Ot Z01.818 ENCOUNTER FOR OTHER PREPROCEDURAL EXAMIN 12/08/2018 REINIER ADEN DO Ot E78. 5 HYPERLIPIDEMIA, UNSPECIFIED 12/08/2018 REINIER ADEN DO Ot F32. 9 MAJOR DEPRESSIVE DISORDER, SINGLE EPISOD 12/08/2018 REINIER ADEN DO Ot F41. 9 ANXIETY DISORDER, UNSPECIFIED 12/08/2018 REINIER ADEN DO Ot I11. 0 HYPERTENSIVE HEART DISEASE WITH HEART FA 12/08/2018 REINIER ADEN DO Ot I25. 10 ATHSCL HEART DISEASE OF [place] CORONARY 12/08/2018 REINIER ADEN DO Ot I44. 7 LEFT BUNDLE-BRANCH BLOCK, UNSPECIFIED 12/08/2018 REINIER ADEN DO Ot I50. 9 HEART FAILURE, UNSPECIFIED 12/08/2018 REINIER ADEN DO Ot J44. 9 CHRONIC OBSTRUCTIVE PULMONARY DISEASE, U 12/08/2018 REINIER ADEN DO Ot K64. 9 UNSPECIFIED HEMORRHOIDS 12/08/2018 REINIER ADEN DO Ot K81. 1 CHRONIC CHOLECYSTITIS 12/08/2018 REINIER ADEN DO Ot K82. 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 82 INTERMEDIATE (CURRENT) USE OF ASPIRIN 12/08/2018 REINIER ADEN DO Ot Z79.899 OTHER INTERMEDIATE (CURRENT) DRUG THERAPY 12/08/2018 REINIER ADEN DO Ot Z80. 0 FAMILY HISTORY OF MALIGNANT NEOPLASM OF 12/08/2018 REINIER ADEN DO Ot Z80. 1 FAMILY HISTORY OF MALIG NEOPLASM OF [place] 12/08/2018 REINIER ADEN DO Ot Z80. 3 FAMILY HISTORY OF MALIGNANT NEOPLASM OF 12/08/2018 REINIER ADEN DO Ot Z88. 0 ALLERGY STATUS TO PENICILLIN 12/08/2018 REINIER ADEN DO Ot Z88. 2 ALLERGY STATUS TO SULFONAMIDES STATUS 12/08/2018 REINIER ADEN DO Ot Z88. 8 ALLERGY STATUS TO OTH DRUG/MEDS/BIOL SUB 12/15/2018 REINIER ADEN DO Ot E78. 5 HYPERLIPIDEMIA, UNSPECIFIED 12/15/2018 REINIER ADEN DO Ot F32. 9 MAJOR DEPRESSIVE DISORDER, SINGLE EPISOD 12/15/2018 REINIER ADEN DO Ot F41. 9 ANXIETY DISORDER, UNSPECIFIED 12/15/2018 REINIER ADEN DO Ot I11. 0 HYPERTENSIVE HEART DISEASE WITH HEART FA 12/15/2018 REINIER ADEN DO Ot I25. 10 ATHSCL HEART DISEASE OF [place] CORONARY 12/15/2018 REINIER ADEN DO Ot I44. 7 LEFT BUNDLE-BRANCH BLOCK, UNSPECIFIED 12/15/2018 REINIER ADEN DO Ot I50. 9 HEART FAILURE, UNSPECIFIED 12/15/2018 REINIER ADEN DO Ot J44. 9 CHRONIC OBSTRUCTIVE PULMONARY DISEASE, U 12/15/2018 REINIER ADEN DO Ot K64. 9 UNSPECIFIED HEMORRHOIDS 12/15/2018 REINIER ADEN DO Ot K81. 1 CHRONIC CHOLECYSTITIS 12/15/2018 REINIER ADEN DO Ot K82. 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 82 INTERMEDIATE (CURRENT) USE OF ASPIRIN 12/15/2018 REINIER ADEN DO Ot Z79.899 OTHER SAW CLEANER (CURRENT) DRUG THERAPY 12/15/2018 REINIER ADEN DO Ot Z80. 0 FAMILY HISTORY OF MALIGNANT NEOPLASM OF 12/15/2018 REINIER ADEN DO Ot Z80. 1 FAMILY HISTORY OF MALIG NEOPLASM OF [place] 12/15/2018 REINIER ADEN DO Ot Z80. 3 FAMILY HISTORY OF MALIGNANT NEOPLASM OF 12/15/2018 REINIER ADEN DO Ot Z88. 0 ALLERGY STATUS TO PENICILLIN 12/15/2018 REINIER ADEN DO Ot Z88. 2 ALLERGY STATUS TO SULFONAMIDES STATUS 12/15/2018 REINIER ADEN DO Ot Z88. 8 ALLERGY STATUS TO OTH DRUG/MEDS/BIOL SUB 12/15/2018 REINIER ADEN DO Ot R10.816 EPIGASTRIC ABDOMINAL TENDERNESS 12/21/2018 SHYLA WALLACE DO Jaleesa Ot 786.05 SHORTNESS OF BREATH 12/21/2018 SHYLA WALLACE DO Ot 786.50 CHEST PAIN NOS 12/21/2018 MAME GIRARD DO Ot V76.1 2 OTH SCREEN MAMMO-MALIGN NEOPLASM OF [place] 12/21/2018 SHYLA WALLACE DO Ot 789.01 ABDOMINAL PAIN, RIGHT UPPER QUADRANT 12/21/2018 SHYLA WALLACE DO Ot 789.01 ABDOMINAL PAIN, RIGHT UPPER QUADRANT 12/21/2018 SHYLA WALLACE DO Ot 553.3 DIAPHRAGMATIC HERNIA 12/21/2018 RODRIGO PEDRAZA, SHYLA Jaleesa Ot 571.8 CHRONIC LIVER DIS NEC 12/21/2018 SHYLA WALLACE DO Ot 789.1 HEPATOMEGALY 12/21/2018 REINIER ADEN DO Ot V72. 84 EXAM PRE-OPERATIVE NOS 12/21/2018 FELIPE CASILLAS FACC, TRISHA FACP CCDS Ot 272.4 HYPERLIPIDEMIA NEC/NOS 12/21/2018 FELIPE CASILLAS FACC, ALI FACP CCDS Ot 401.9 HYPERTENSION NOS 12/21/2018 FELIPE CASILLAS FACC, ALI FACP CCDS Ot 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 NEC 12/21/2018 FELIPE CASILLAS FACC, ALI FACP CCDS Ot 426.3 LEFT BB BLOCK NEC 12/21/2018 FELIPE CASILLAS FACC, ALI FACP CCDS Ot 786.05 SHORTNESS OF BREATH 12/21/2018 FELIPE CASILLAS FACC, ALI FACP CCDS Ot 786.59 CHEST PAIN NEC 12/21/2018 FELIPE CASILLAS FACC, TRISHA FACP CCDS Ot V58.69 OTH MED,LT,CURRENT USE 12/21/2018 FELIPE CASILLAS FACC, ALI FACP CCDS Ot 272.4 HYPERLIPIDEMIA NEC/NOS 12/21/2018 FELIPE CASILLAS [facility], ALI FACP CCDS Ot 397.0 TRICUSPID VALVE DISEASE 12/21/2018 FELIPE CASILLAS FAC, ALI FACP CCDS Ot 401.9 HYPERTENSION NOS 12/21/2018 FELIPE CASILLAS FAC, ALI FACP CCDS Ot 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 NEC 12/21/2018 FELIPE CASILLAS FACC, ALI FACP CCDS Ot 424.0 MITRAL VALVE DISORDER 12/21/2018 FELIPE CASILLAS FAC, ALI FACP CCDS Ot 426.3 LEFT BB BLOCK NEC 12/21/2018 FELIPE CASILLAS FAC, ALI FACP CCDS Ot 786.05 SHORTNESS OF BREATH 12/21/2018 FELIPE CASILLAS [facility], ALI FACP CCDS Ot V58.69 OTH MED,LT,CURRENT USE 12/21/2018 MOISES SAUL ELECTRONIC PUBLISHER Ot V76.1 2 OTH SCREEN MAMMO-MALIGN NEOPLASM OF [place] 12/21/2018 CHANELLE CASILLAS, KIM Ruff Ot 715. 31 LOC OSTEOARTH NOS-SHLDER 12/21/2018 KIM ROCA MD Ot 721. 0 CERVICAL SPONDYLOSIS 12/21/2018 KIM ROCA MD Ot M19. 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 W/O MYELOPATHY OR RADICULOPA 12/21/2018 MAME GIRARD DO Ot N81.9 FEMALE GENITAL PROLAPSE, UNSPECIFIED 12/21/2018 MAME GIRARD DO Ot R10.2 PELVIC AND PERINEAL PAIN 12/21/2018 SHYLA WALLACE DO Ot M79.604 PAIN IN RIGHT LEG 12/21/2018 RODRIGO DOSHYLA Ot R06.02 SHORTNESS OF BREATH 12/21/2018 GELLENDER DOSHYLA Ot R53.83 OTHER FATIGUE 12/21/2018 GELLENDER DOSHYLA Ot R06.02 SHORTNESS OF BREATH 12/21/2018 GELLENDER DOSHYLA Ot R53.83 OTHER FATIGUE 12/21/2018 HELENE TEJEDA ELECTRONIC PUBLISHER Ot E78.5 HYPERLIPIDEMIA, UNSPECIFIED 12/21/2018 BAIHELENE LUU ELECTRONIC PUBLISHER Ot I 10 ESSENTIAL (PRIMARY) HYPERTENSION 12/21/2018 HELENE TEJEDA ELECTRONIC PUBLISHER Ot 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 12/21/2018 BAIMA, HELENE L ELECTRONIC PUBLISHER Ot J84.10 PULMONARY FIBROSIS, UNSPECIFIED 12/21/2018 BAIMA, HELENE L ELECTRONIC PUBLISHER Ot R06.00 DYSPNEA, UNSPECIFIED 12/21/2018 BAIMA, HELENE L ELECTRONIC PUBLISHER Ot R53.83 OTHER FATIGUE 12/21/2018 BAIMA, HELENE L ELECTRONIC PUBLISHER Ot E78.4 OTHER HYPERLIPIDEMIA 12/21/2018 BAIMA, HELENE L ELECTRONIC PUBLISHER Ot I 10 ESSENTIAL (PRIMARY) HYPERTENSION 12/21/2018 BAIMA, HELENE L ELECTRONIC PUBLISHER Ot 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 12/21/2018 BAIMA, HELENE L ELECTRONIC PUBLISHER Ot I44.7 LEFT BUNDLE-BRANCH BLOCK, UNSPECIFIED 12/21/2018 BAIMA, HELENE L ELECTRONIC PUBLISHER Ot R06.09 OTHER FORMS OF DYSPNEA 12/21/2018 BAIMA, HELENE L ELECTRONIC PUBLISHER Ot R53.83 OTHER FATIGUE 12/21/2018 BAIMA, HELENE L ELECTRONIC PUBLISHER Ot E78.4 OTHER HYPERLIPIDEMIA 12/21/2018 BAIMA, HELENE L ELECTRONIC PUBLISHER Ot I 10 ESSENTIAL (PRIMARY) HYPERTENSION 12/21/2018 BAIMA, HELENE L ELECTRONIC PUBLISHER Ot 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 12/21/2018 BAIMA, HELENE L ELECTRONIC PUBLISHER Ot I44.7 LEFT BUNDLE-BRANCH BLOCK, UNSPECIFIED 12/21/2018 BAIMA, HELENE L ELECTRONIC PUBLISHER Ot R06.09 OTHER FORMS OF DYSPNEA 12/21/2018 BAIMA, HELENE L ELECTRONIC PUBLISHER Ot R53.83 OTHER FATIGUE 12/21/2018 FELIPE CASILLAS FACC, ALI FACP CCDS Ot 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 8 OTHER EMPHYSEMA 12/21/2018 CARISSA DO ANA LAURA Dayne Ot L93. 2 OTHER LOCAL LUPUS ERYTHEMATOSUS 12/21/2018 ANA LAURA FERRER DO Ot R06. 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 12/21/2018 VAN JONES FIRE SPRINKLER DESIGNER Ot R91.8 OTHER NONSPECIFIC ABNORMAL FINDING OF SHONA 12/21/2018 VAN JONES FIRE SPRINKLER DESIGNER Ot J44.9 CHRONIC OBSTRUCTIVE PULMONARY DISEASE, U 12/21/2018 VAN JONES FIRE SPRINKLER DESIGNER Ot 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 12/21/2018 VAN JONES FIRE SPRINKLER DESIGNER Ot R91.8 OTHER NONSPECIFIC ABNORMAL FINDING OF SHONA 12/21/2018 DEJA PARKS OVEN ROASTER-C Ot M17.11 UNILATERAL PRIMARY OSTEOARTHRITIS, RIGHT 12/21/2018 VAN JONES [employer] DESIGNER Ot I27.20 PULMONARY HYPERTENSION, UNSPECIFIED 12/21/2018 VAN JONES FI[employer]INK[employer] DESIGNER Ot J44.9 CHRONIC OBSTRUCTIVE PULMONARY DISEASE, U 12/21/2018 VAN JONES FI[employer] SPRINKLER DESIGNER Ot J45.909 UNSPECIFIED ASTHMA, UNCOMPLICATED 12/21/2018 VAN JONES FI[employer] SPRINKLER DESIGNER Ot R06.02 SHORTNESS OF BREATH 12/21/2018 MAME GIRARD DO Ot Z12.3 1 ENCNTR SCREEN MAMMOGRAM FOR MALIGNANT NE 12/21/2018 GELLENSHYLA MONTOYA DO Ot K59.00 CONSTIPATION, UNSPECIFIED 12/21/2018 SHYLA WALLACE DO Ot K63.89 OTHER SPECIFIED DISEASES OF INTESTINE 12/21/2018 SHYLA WALLACE DO Ot N28.9 DISORDER OF KIDNEY AND URETER, UNSPECIFI 12/21/2018 FELIPE CASILLAS FACC, ALI FACP CCDS Ot E78.5 HYPERLIPIDEMIA, UNSPECIFIED 12/21/2018 FELIPE CASILLAS FACC, TRISHA FACP CCDS Ot I10 ESSENTIAL (PRIMARY) HYPERTENSION 12/21/2018 FELIPE CASILLAS FACC, ALI FACP CCDS Ot R06.02 SHORTNESS OF BREATH 12/21/2018 MAME GIRARD DO Ot Z12.3 1 ENCNTR SCREEN MAMMOGRAM FOR MALIGNANT NE 12/21/2018 KEIKO PEDRAZA, REINIER D Ot R10.816 EPIGASTRIC ABDOMINAL TENDERNESS 12/21/2018 ADEN DO, REINIER D Ot R10.816 EPIGASTRIC ABDOMINAL TENDERNESS 01/12/2019 VAN JONES APRN Ot I27.20 PULMONARY HYPERTENSION, UNSPECIFIED 01/12/2019 VAN JONES APRN Ot J43.9 EMPHYSEMA, UNSPECIFIED 01/12/2019 VAN JONES APRN Ot R91.8 OTHER NONSPECIFIC ABNORMAL FINDING OF SHONA 03/15/2019 FELIPE CASILLAS FACC, TRISHA FACP CCDS Ot E78.49 OTHER HYPERLIPIDEMIA 03/15/2019 FELIPE CASILLAS FACC, ALI FACP CCDS Ot 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 03/17/2019 FELIPE CASILLAS FACC, ALI FACP CCDS Ot E78.5 HYPERLIPIDEMIA, UNSPECIFIED 03/17/2019 FELIPE CASILLAS FACC, ALI FACP CCDS Ot I10 ESSENTIAL (PRIMARY) HYPERTENSION 03/17/2019 FELIPE CASILLAS FACC, ALI FACP CCDS Ot 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 03/17/2019 FELIPE CASILLAS FACC, ALI FACP CCDS Ot I44.7 LEFT BUNDLE-BRANCH BLOCK, UNSPECIFIED 03/17/2019 FELIPE CASILLAS FACC, ALI FACP CCDS Ot 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 03/17/2019 FELIPE CASILLAS FACC, ALI FACP CCDS Ot J44.9 CHRONIC OBSTRUCTIVE PULMONARY DISEASE, U 04/07/2019 FELIPE CASILLAS FACC, ALI FACP CCDS Ot E78.5 HYPERLIPIDEMIA, UNSPECIFIED 04/07/2019 FELIPE CASILLAS FACC, ALI FACP CCDS Ot I10 ESSENTIAL (PRIMARY) HYPERTENSION 04/07/2019 FELIPE CASILLAS FACC, ALI FACP CCDS Ot 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 04/07/2019 FELIPE CASILLAS FACC, ALI FACP CCDS Ot I44.7 LEFT BUNDLE-BRANCH BLOCK, UNSPECIFIED 04/07/2019 FELIPE CASILLAS FAC, TRISHA [facility] CCDS Ot 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 04/07/2019 FELIPE ROBERTS, TRISHA [facility] CCDS Ot J44.9 CHRONIC OBSTRUCTIVE PULMONARY DISEASE, U Procedures Code Description Performed By Per formed On 59.79 URIN INCONTIN REPAIR NEC 04/26/2006 70.51 CYST OCELE REPAIR 04/26/2006 70.8 VAGIN AL VAULT OBLITERAT 06/18/2009 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 09/15/2010 Results Test Result Range Complete blood count (CBC) with automate d white blood cell (WBC) differential - 01/07/16 08:55 Blood leukocytes automated count (number/volume) 8.4 10*3/uL 4.3-11.0 Blood erythrocytes automated count (number/volume) 4.65 10*6/uL 4.35-5.85 Venous blood hemoglobin measurement (mass/volume) 13.0 g/dL 11.5-16.0 Blood hematocrit (volume fraction) 41 % 35-52 Automated erythrocyte mean corpuscular volume 87 [ foz_us] 80-99 Automated erythrocyte mean corpuscular h emoglobin (mass per erythrocyte) 28 pg 25-34 Automated erythrocyte mean corpuscular h emoglobin concentration measurement (mass/volume) 32 g/dL 32-36 Automated erythrocyte distribution width ratio 14. 1 % 10.0- 14.5 Automated blood platelet count [...] 10*3 1.0-4.0 Blood monocytes automated count (number/volume) 1. 0 10*3 0.0-1.0 Automated eosinophil count 0.3 10*3/uL 0 .0-0.3 Automated blood basophil count (count/volume) 0.0 10*3/uL 0.0-0.1 Comprehensive metabolic panel - 01/07/16 08:55 Serum or plasma sodium measurement (moles/volume) 137 mmol/L 135-145 Serum or plasma potassium measurement (moles/volume) 4.1 mmol/L 3.6-5.0 Serum or plasma chloride measurement (moles/volume) 104 mmol/L 98-107 Carbon dioxide 24 mmol/L 21-32 Serum or plasma anion gap determination (moles/volume) 9 mmol/L 5-14 Serum or plasma urea nitrogen measurement (mass/volume ) 11 mg/dL 7-18 Serum or plasma creatinine measurement (mass/volume) 0.72 mg/dL 0.60-1.30 Serum or plasma urea nitrogen/creatinine mass ratio 15 NRG Serum or plasma creatinine measurement w ith calculation of estimated glomerular filtration rate > NRG Serum or plasma glucose measurement (mass/volume) 98 mg/dL 70-105 Serum or plasma calcium measurement (mass/volume) 9.3 mg/dL 8.5-10.1 Serum or plasma total bilirubin measurement (mass/volu me) 0.6 mg/dL 0.1-1.0 Serum or plasma alkaline phosphatase saritha surement (enzymatic activity/volume) 42 U/L 40-136 Serum or plasma aspartate aminotransfera se measurement (enzymatic activity/volume) 31 U/L 5-34 Serum [...] Serum or plasma cholesterol in HDL measurement (mass/v olume) 41 mg/dL 40-60 Cholesterol in LDL [mass/volume] in serum or plasma by direct assay 111 mg/dL 1-129 Serum or plasma cholesterol in VLDL measurement (mass/ volume) 63 mg/dL 5-40 Serum or plasma lithium measurement (mol es/volume) - 01/07/16 08:55 BNP level 29.9 pg/mL <100.0 THYROID STIMULATING HORMONE - 01/07/16 0 8:55 THYROID STIMULATING HORMONE 2.63 u[iU]/mL 0.35-4.94 Digoxin - 01/07/16 08:55 Digoxin 0.60 ng/mL 0.80-2.00 Complete blood count (CBC) with automate d white blood cell (WBC) differential - 01/08/16 16:34 Blood leukocytes automated count (number/volume) 10.3 10*3/uL 4.3-11.0 Blood erythrocytes automated count (number/volume) 4.80 10*6/uL 4.35-5.85 Venous blood hemoglobin measurement (mass/volume) 13.7 g/dL 11.5-16.0 Blood hematocrit (volume fraction) 41 % 35-52 Automated erythrocyte mean corpuscular volume 86 [ foz_us] 80-99 Automated erythrocyte mean corpuscular h emoglobin (mass per erythrocyte) 29 pg 25-34 Automated erythrocyte mean corpuscular h emoglobin concentration measurement (mass/volume) 33 g/dL 32-36 Automated erythrocyte distribution width ratio 13. 8 % 10.0- 14.5 Automated blood platelet count [...] 10*3 1.0-4.0 Blood monocytes automated count (number/volume) 1. 0 10*3 0.0-1.0 Automated eosinophil count 0.3 10*3/uL 0 .0-0.3 Automated blood basophil count (count/volume) 0.0 10*3/uL 0.0-0.1 PT panel in platelet poor plasma by coag ulation assay - 01/08/16 16:34 Prothrombin time (PT) in platelet poor plasma by coagu lation assay 12.0 s 12.2-14.7 INR in platelet poor plasma or blood by coagulation as say 0.9 0.8-1.4 Activated partial thromboplastin time (a PTT) in platelet poor plasma bycoagulation assay - 01/08/16 16:34 Activated partial thromboplastin time (a PTT) in platelet poor plasma bycoagulation assay 30 s 24-35 Comprehensive metabolic panel - 01/08/16 16:34 Serum or plasma sodium measurement (moles/volume) 136 mmol/L 135-145 Serum or plasma potassium measurement (moles/volume) 3.6 mmol/L 3.6-5.0 Serum or plasma chloride measurement (moles/volume) 98 mmol/L 98-107 Carbon dioxide 27 mmol/L 21-32 Serum or plasma anion gap determination (moles/volume) 11 mmol/L 5-14 Serum or plasma urea nitrogen measurement (mass/volume ) 14 mg/dL 7-18 Serum or plasma creatinine measurement (mass/volume) 0.85 mg/dL 0.60-1.30 Serum or plasma urea nitrogen/creatinine mass ratio 16 NRG Serum or plasma creatinine measurement w ith calculation of estimated glomerular filtration rate > NRG Serum or plasma glucose measurement (mass/volume) 126 mg/dL 70-105 Serum or plasma calcium measurement (mass/volume) 10.8 mg/dL 8.5-10.1 Serum or plasma total bilirubin measurement (mass/volu me) 0.5 mg/dL 0.1-1.0 Serum or plasma alkaline phosphatase saritha surement (enzymatic activity/volume) 48 U/L 40-136 Serum or plasma aspartate aminotransfera se measurement (enzymatic activity/volume) 31 U/L 5-34 Serum or plasma alanine aminotransferase measurement (enzymatic activity/volume) 39 U/L 0-55 Serum or plasma protein measurement (mass/volume) 8.2 g/dL 6.4-8.2 Serum or plasma albumin measurement (mass/volume) 4.3 g/dL 3.2-4.5 Serum or plasma creatine kinase measurem ent (enzymatic activity/volume) - 01/08/16 16:34 Serum or plasma creatine kinase measurem ent (enzymatic activity/volume) 63 U/L 29-168 Serum or plasma creatine kinase MB measu rement (enzymatic activity/volume) - 01/08/16 16:34 Serum or plasma creatine kinase MB measu rement (enzymatic activity/volume) 1.3 ng/mL <6.6 Serum or plasma troponin i.cardiac measu rement (mass/volume) - 01/08/16 16:34 Serum or plasma troponin i.cardiac measurement (mass/v olume) < ng/mL <0.30 Serum or plasma amylase measurement (enz ymatic activity/volume) - 01/08/16 16:34 Serum or plasma amylase measurement (enzymatic activit y/volume) 45 U/L 25-125 Lipase - 01/08/16 16:34 Lipase 14 U/L 8-78 Serum or plasma lithium measurement (mol es/volume) - 01/08/16 16:34 BNP level 16.4 pg/mL <100.0 Complete blood count (CBC) with automate d white blood cell (WBC) differential - 08/13/16 11:42 Blood leukocytes automated count (number/volume) 15.4 10*3/uL 4.3-11.0 Blood erythrocytes automated count (number/volume) 4.73 10*6/uL 4.35-5.85 Venous blood hemoglobin measurement (mass/volume) 13.3 g/dL 11.5-16.0 Blood hematocrit (volume fraction) 41 % 35-52 Automated erythrocyte mean corpuscular volume 88 [ foz_us] 80-99 Automated erythrocyte mean corpuscular h emoglobin (mass per erythrocyte) 28 pg 25-34 Automated erythrocyte mean corpuscular h emoglobin concentration measurement (mass/volume) 32 g/dL 32-36 Automated erythrocyte distribution width ratio 14. 8 % 10.0- 14.5 Automated blood platelet count [...] 10*3 1.0-4.0 Blood monocytes automated count (number/volume) 1. 5 10*3 0.0-1.0 Automated eosinophil count 0.2 10*3/uL 0 .0-0.3 Automated blood basophil count (count/volume) 0.0 10*3/uL 0.0-0.1 Blood manual differential performed dete ction - 08/13/16 11:42 Blood monocytes/100 leukocytes 4 [...] NRG Whole blood basic metabolic panel - 08/10 09/26 12:01 Serum or plasma sodium measurement (moles/volume) 136 mmol/L 135-145 Serum or plasma potassium measurement (moles/volume) 4.1 mmol/L 3.6-5.0 Serum or plasma chloride measurement (moles/volume) 100 mmol/L 98-107 Carbon dioxide 28 mmol/L 21-32 Serum or plasma anion gap determination (moles/volume) 8 mmol/L 5-14 Serum or plasma urea nitrogen measurement (mass/volume ) 19 mg/dL 7-18 Serum or plasma creatinine measurement (mass/volume) 0.85 mg/dL 0.60-1.30 Serum or plasma urea nitrogen/creatinine mass ratio 22 NRG Serum or plasma creatinine measurement w ith calculation of estimated glomerular filtration rate > NRG Serum or plasma glucose measurement (mass/volume) 91 mg/dL 70-105 Serum or plasma calcium measurement (mass/volume) 9.2 mg/dL 8.5-10.1 Serum or plasma rheumatoid factor measur ement (units/volume) - 08/25/16 12:01 Serum or plasma rheumatoid factor measurement (units/v olume) NEGATIVE NEGATIVE [id number] - 08/25/16 12:01 Screening antinuclear antibody (ADRIANO) assay by enzyme i mmunoassay Positive <1:80 Anaplasma phagocytophilum IgG ab [titer] in serum <1:80 Serum nuclear antibody pattern interpretation Homo geneous NRG IMMUNOGLOBULIN IGE - 08/25/16 12:01 Serum or plasma IgE antibody detection 21.1 NRG IgE measurement (mass/volume) See Footnote NRG Automated blood complete blood count (he mogram) panel - 11/17/16 07:28 Blood leukocytes automated count (number/volume) 10.6 10*3/uL 4.3-11.0 Blood erythrocytes automated count (number/volume) 4.98 10*6/uL 4.35-5.85 Venous blood hemoglobin measurement (mass/volume) 14.1 g/dL 11.5-16.0 Blood hematocrit (volume fraction) 43 % 35-52 Automated erythrocyte mean corpuscular volume 87 [ foz_us] 80-99 Automated erythrocyte mean corpuscular h emoglobin (mass per erythrocyte) 28 pg 25-34 Automated erythrocyte mean corpuscular h emoglobin concentration measurement (mass/volume) 33 g/dL 32-36 Automated erythrocyte distribution width ratio 14. 4 % 10.0- 14.5 Automated blood platelet count (count/volume) 348 10*3/uL 130-400 Automated blood platelet mean volume measurement 10.1 [foz_us] 7.4-10.4 PT panel in platelet poor plasma by coag ulation assay - 11/17/16 07:28 Prothrombin time (PT) in platelet poor plasma by coagu lation assay 11.5 s 12.2-14.7 INR in platelet poor plasma or blood by coagulation as say 0.9 0.8-1.4 Activated partial thromboplastin time (a PTT) in platelet poor plasma bycoagulation assay - 11/17/16 07:28 Activated partial thromboplastin time (a PTT) in platelet poor plasma bycoagulation assay 31 s 24-35 Comprehensive metabolic panel - 11/17/16 07:28 Serum or plasma sodium measurement (moles/volume) 138 mmol/L 135-145 Serum or plasma potassium measurement (moles/volume) 3.8 mmol/L 3.6-5.0 Serum or plasma chloride measurement (moles/volume) 101 mmol/L 98-107 Carbon dioxide 23 mmol/L 21-32 Serum or plasma anion gap determination (moles/volume) 14 mmol/L 5-14 Serum or plasma urea nitrogen measurement (mass/volume ) 11 mg/dL 7-18 Serum or plasma creatinine measurement (mass/volume) 0.78 mg/dL 0.60-1.30 Serum or plasma urea nitrogen/creatinine mass ratio 14 NRG Serum or plasma creatinine measurement w ith calculation of estimated glomerular filtration rate > NRG Serum or plasma glucose measurement (mass/volume) 96 mg/dL 70-105 Serum or plasma calcium measurement (mass/volume) 10.0 mg/dL 8.5-10.1 Serum or plasma total bilirubin measurement (mass/volu me) 0.7 mg/dL 0.1-1.0 Serum or plasma alkaline phosphatase saritha surement (enzymatic activity/volume) 45 U/L 40-136 Serum or plasma aspartate aminotransfera se measurement (enzymatic activity/volume) 24 U/L 5-34 Serum [...] Serum or plasma cholesterol in HDL measurement (mass/v olume) 45 mg/dL 40-60 Cholesterol in LDL [mass/volume] in serum or plasma by direct assay 96 mg/dL 1-129 Serum or plasma cholesterol in VLDL measurement (mass/ volume) 90 mg/dL 5-40 Digoxin - 11/17/16 07:28 Digoxin 0.47 ng/mL 0.80-2.00 Arterial blood oxygen saturation measure ment - 11/17/16 10:16 Arterial blood oxygen saturation measurement 93 % 94-100 Arterial blood oxygen saturation measure ment - 11/17/16 10:17 Arterial blood oxygen saturation measurement 70 % 94-100 Arterial blood oxygen saturation measure ment - 11/17/16 10:18 Arterial blood oxygen saturation measurement 69 % 94-100 Arterial blood oxygen saturation measure ment - 11/17/16 10:19 Arterial blood oxygen saturation measurement 69 % 94-100 [id number] - 01/31/18 15:18 Serum or plasma urea nitrogen measurement (mass/volume ) 12 mg/dL 7-18 Serum or plasma creatinine measurement (mass/volume) 0.82 mg/dL 0.60-1.30 Serum or plasma urea nitrogen/creatinine mass ratio 15 NRG Serum or plasma creatinine measurement w ith calculation of estimated glomerular filtration rate > NRG Complete blood count (CBC) with automate d white blood cell (WBC) differential - 12/08/18 09:50 Blood leukocytes automated count (number/volume) 8.9 10*3/uL 4.3-11.0 Blood erythrocytes automated count (number/volume) 4.68 10*6/uL 4.35-5.85 Venous blood hemoglobin measurement (mass/volume) 13.0 g/dL 11.5-16.0 Blood hematocrit (volume fraction) 40 % 35-52 Automated erythrocyte mean corpuscular volume 86 [ foz_us] 80-99 Automated erythrocyte mean corpuscular h emoglobin (mass per erythrocyte) 28 pg 25-34 Automated erythrocyte mean corpuscular h emoglobin concentration measurement (mass/volume) 32 g/dL 32-36 Automated erythrocyte distribution width ratio 14. 5 % 10.0- 14.5 Automated blood platelet count (count/volume) 311 10*3/uL 130-400 Automated blood platelet mean volume measurement 10.1 [foz_us] 7.4-10.4 Automated blood neutrophils/100 leukocytes 54 % 42-75 Automated blood lymphocytes/100 leukocytes 33 % 12-44 Blood monocytes/100 leukocytes 9 % 0-12 Automated blood eosinophils/100 leukocytes 3 % 0-10 Automated blood basophils/100 leukocytes 0 % 0-10 Blood neutrophils automated count (number/volume) 4.8 10*3 1.8-7.8 Blood lymphocytes automated count (number/volume) 2.9 10*3 1.0-4.0 Blood monocytes automated count (number/volume) 0. 8 10*3 0.0-1.0 Automated eosinophil count 0.3 10*3/uL 0 .0-0.3 Automated blood basophil count (count/volume) 0.0 10*3/uL 0.0-0.1 Methicillin resistant Staphylococcus aur eus (MRSA) screening culture - 12/08/18 09:50 Methicillin resistant Staphylococcus aureus (MRSA) scr eening culture NEG NRG Encounters ACCT No. Visit Date/Time Discharge Status Pt. Type Provider Facility Loc./Unit Complaint [id number] 06/21/2019 15:15:00 06/21/2019 23:59:5 9 CLS Outpatient XAVIER ALFARO MD [facility] [address] DENTAL [id number] 03/15/2019 13:42:00 019 23:59:59 CLS Outpatient FELIPE CASILLAS FACC, TRISHA VASQUEZ CC DS [facility] LAB CAD [id number] 01/25/2019 12:30:00 23:59:59 CLS Preadmit VAN JONES APRN [facility] RT SOB,COPD,PULMON MIRTHA HTN [id number] 12/21/2018 10:44:00 23:59:59 CLS Outpatient VAN JONES APRN [facility] RAD SOB [id number] 12/08/2018 09:18:00 14:45:00 DIS Outpatient REINIER ADEN DO [facility] SDC BILIARY DYSKINESIA [id number] 11/29/2018 06:32:00 15:32:00 DIS Outpatient REINIER ADEN DO [facility] PREOP BILIARY DYSKINESIA [id number] 11/21/2018 12:14:00 23:59:59 CLS Outpatient REINIER ADEN DO [facility] CARD EPIGASTRIC ABD TENDERNE SS [id number] 11/02/2018 15:49:00 23:59:59 CLS Preadmit VAN JONES APRN [facility] RAD SOB [id number] 11/01/2018 08:11:00 23:59:59 CLS Outpatient REINIER ADEN DO [facility] RAD EPIGASTRIC ABD TENDERNE SS [id number] 10/11/2018 08:54:00 11:15:00 DIS Outpatient REINIER ADEN DO [facility] ENDO CHANGE IN BOWELS/BRIGHT RED BLOOD IN STOOLS/GERD [id number] 10/05/2018 13:30:00 14:02:00 DIS Outpatient REINIER ADEN DO [facility] PREOP COLONOSCOPY/EGD [id number] 09/26/2018 08:41:00 23:59:59 CLS Outpatient MAME GIRARD DO [facility] RAD SCREENING [id number] 07/25/2018 08:12:00 23:59:59 CLS Outpatient FELIPE CASILLAS FACC, TRISHA VASQUEZ CC DS [facility] LAB SOB,HYPERLI PIDEMIA [id number] 02/01/2018 07:59:00 23:59:59 CLS Outpatient SHYLA WALLACE DO [facility] RAD ABDOMINAL PAIN BLOATING [id number] 01/31/2018 15:11:00 23:59:59 CLS Outpatient SHYLA WALLACE DO [facility] LAB RENAL INSUFF [id number] 09/23/2017 09:16:00 23:59:59 CLS Outpatient MAME GIRARD DO [facility] RAD SCREENING [id number] 09/20/2017 09:41:00 23:59:59 CLS Outpatient VAN JONES APRN [facility] RAD COPD J43.8 [id number] 04/13/2017 13:00:00 018 23:59:59 CLS Preadmit VAN JONES FIRE SPRINKLER DESIGNER [facility] PUL COPD J43.8 [id number] 02/16/2017 10:00:00 018 00:01:00 DIS Outpatient VAN JONES FI[employer] DESIGNER [facility] PUL COPD J43.8 [id number] 03/13/2017 16:47:00 017 23:59:59 CLS Outpatient DEJA PARKS [facility] RAD M25.561, [id number] 01/07/2017 10:00:00 00:01:00 DIS Outpatient VAN JONES FI[employer] DESIGNER [facility] PUL COPD J43.8 [id number] 11/17/2016 07:06:00 017 14:00:00 DIS Outpatient FELIPE CASILLAS FACC, TRISHA VASQUEZ CC DS [facility] CATH SOB,ANGINA, CAD,FATIGUE [id number] 10/06/2016 12:34:00 23:59:59 CLS Outpatient MAME GIRARD DO [facility] RAD SCREENING Z12.31 [id number] 10/06/2016 12:32:00 23:59:59 CLS Outpatient VAN JONES APRN [facility] RAD UIP J84.112 [id number] 08/25/2016 11:37:00 23:59:59 CLS Outpatient CARISSA ANA LAURA M [facility] LAB COPD,SOB [id number] 08/13/2016 11:31:00 23:59:59 CLS Outpatient SHYLA WALLACE DO [facility] LAB RESPIRATORY INF ,COUGH CONGESTION [id number] 02/24/2016 10:00:00 23:59:59 CLS Outpatient FELIPE CASILLAS FACC, TRISHA VASQUEZ CC DS [facility] LAB SOB,CAD,PRODUCTION TECH D,UIP [id number] 01/23/2016 08:09:00 23:59:59 CLS Outpatient HELENE TEJEDA [facility] CARD DIEZ,CAD,FATIGUE [id number] 01/22/2016 07:06:00 23:59:59 CLS Outpatient HELENE TEJEDA ELECTRONIC PUBLISHER [facility] RAD DIEZ,FATIGUE,CAD,HTN,HLP,LEFT BUNDLE BRANCH BLOCK [id number] 01/17/2016 12:56:00 23:59:59 CLS Outpatient HELENE TEJEDA [facility] LAB DIEZ,CAD,HTN,HLP ,FATIGUE [id number] 01/14/2016 10:15:00 23:59:59 CLS Outpatient SHYLA WALLACE DO [facility] CARD SOB,TIRED [id number] 01/08/2016 16:19:00 18:10:00 DIS Emergency GILLIAN DE PAZ DO [facility] ER CP [id number] 01/07/2016 08:35:00 016 23:59:59 CLS Outpatient SHYLA WALLACE DO [facility] RAD SOB,TIRED [id number] 10/03/2015 15:00:00 23:59:59 CLS Outpatient SHYLA WALLACE DO [facility] RAD RIGHT CALF PAIN GETTING WORSE [id number] 02/20/2015 12:43:00 23:59:59 CLS Outpatient MAME GIRARD DO eKlly [facility] RAD PELVIC PAIN [id number] 12/08/2014 21:00:00 00:59:00 DIS Emergency CHAITANYA CASILLAS, SCOOTER [facility] [facility] EPIGASTRIC PAIN ABDOMINAL PAIN [id number] 12/06/2014 13:17:00 23:59:59 CLS Outpatient KIM ROCA MD [facility] RAD CERVICAL PAIN [id number] 09/12/2014 10:24:00 23:59:59 CLS Outpatient MOISES SAUL [facility] RAD SCREENING [id number] 01/31/2014 13:03:00 23:59:59 CLS Outpatient FELIPE CASILLAS FACC, TRISHA VASQUEZ CC DS [facility] CARD HUSAMBB,SOB [id number] 01/30/2014 11:38:00 16:50:00 DIS Outpatient REINIER ADEN DO [facility] SDC SCREENING;REFLUX [id number] 01/25/2014 07:13:00 23:59:59 CLS Outpatient FELIPE CASILLAS FACC, TRISHA VASQUEZ CC DS [facility] CARD LBBB,SOB,HT N,HLP [id number] 01/24/2014 07:20:00 23:59:59 CLS Outpatient REINIER ADEN DO [facility] PREOP SCREENING;REFLUX [id number] 01/05/2014 08:02:00 23:59:59 CLS Outpatient SHYLA WALLACE DO [facility] RAD DIARRHEA,ABD DI SCOMFORT [id number] 01/02/2014 09:29:00 23:59:59 CLS Outpatient SHYLA WALLACE DO [facility] CARD ABDOMINAL PAIN RIGHT UPPER QUAD [id number] 12/21/2013 08:40:00 23:59:59 CLS Outpatient SHYLA WALLACE DO [facility] RAD RUQ PAIN [id number] 09/30/2013 13:36:00 23:59:59 CLS Outpatient JEANMARIE LUBIN APRN [facility] QUICK POSSIBLE UTI [id number] 08/14/2013 10:10:00 23:59:59 CLS Outpatient MAME GIRARD DO [place] [facility] RAD SCREENING [id number] 07/05/2013 14:23:00 23:59:59 CLS Outpatient SHYLA WALLACE DO [facility] RAD SOB [id number] 05/24/2013 08:11:00 23:59:59 CLS Outpatient HELENE TEJEDA [facility] LAB CAD,HYPERLIPIDE TANIA,DIGOXIN [place] [id number] 03/21/2013 20:57:00 06:55:00 DIS Outpatient ANA LAURA FERRER DO [facility] SLEEP OA,SNORING,ARRHYTHMIAS,HTN,ISCHEMIC HEART DISEASE [id number] 03/01/2013 12:52:00 23:59:59 CLS Outpatient ANA LAURA FERRER DO [facility] RT EXCESSIVE SLEEPINESS,HT N,SOB [id number] 02/16/2013 07:00:00 23:59:59 CLS Outpatient HELENE TEJEDA [facility] RAD CAD,HTN [id number] 02/09/2013 08:02:00 23:59:59 CLS Outpatient HELENE TEJEDAP [facility] CARD CAD,HTN [id number] 09/19/2012 06:52:00 23:59:59 CLS Outpatient HELENE TEJEDAP [facility] LAB HYPERLIPIDEMIA [id number] 08/09/2012 09:03:00 23:59:59 CLS Outpatient MAME GIRARD DO [place] [facility] RAD SCREENING [id number] 04/28/2017 17:01:00 Document Registration [id number] 04/28/2017 16:33:00 Document Registration [id number] 04/28/2017 16:33:00 Document Registration [id number] 04/28/2017 16:33:00 Document Registration [id number] 04/28/2017 16:33:00 Document Registration [id number] 04/28/2017 16:33:00 Document Registration [id number] 03/21/2014 14:11:00 Document Registration [id number] 2012 08:33:00 Document Registration [id number] 08/02/2012 11:28:00 Document Registration [id number] 02/08/2012 08:45:00 Document Registration [id number] 08/14/2011 12:20:00 Document Registration [id number] 08/07/2011 10:21:00 Document Registration [id number] 07/06/2011 08:47:00 Document Registration [id number] 02/09/2011 09:03:00 Document Registration [id number] 11/27/2010 08:45:00 Document Registration [id number] 10/28/2010 04:52:00 Document Registration [id number] 10/14/2010 10:48:00 Document Registration [id number] 10/07/2010 10:30:00 Document Registration [id number] 10/01/2010 10:00:00 Document Registration [id number] 10/01/2010 10:00:00 Document Registration [id number] 09/26/2010 09:45:00 Document Registration [id number] 09/19/2010 13:00:00 Document Registration [id number] 09/15/2010 05:51:00 Document Registration [id number] 09/11/2010 13:02:00 Document Registration [id number] 09/04/2010 08:13:00 Document Registration [id number] 2010 10:10:00 Document Registration [id number] 07/04/2010 13:09:00 Document Registration [id number] 05/09/2010 08:21:00 Document Registration [id number] 04/09/2010 07:39:00 Document Registration [id number] 02/22/2010 12:45:00 Document Registration [id number] 11/05/2009 08:52:00 Document Registration [id number] 08/01/2009 09:00:00 Document Registration [id number] 06/12/2009 08:57:00 Document Registration [id number] 06/03/2009 11:38:00 Document Registration [id number] 05/24/2009 15:09:00 Document Registration [id number] 03/14/2009 08:15:00 Document Registration [id number] 08/15/2008 07:36:00 Document Registration [id number] 06/26/2008 08:46:00 Document Registration [id number] 06/12/2008 09:33:00 Document Registration [id number] 02/15/2008 08:54:00 Document Registration [id number] 11/15/2007 15:06:00 Document Registration [id number] 08/22/2007 08:20:00 Document Registration [id number] 06/15/2007 10:18:00 Document Registration [id number] 06/09/2007 10:25:00 Document Registration [id number] 04/18/2007 08:49:00 Document Registration [id number] 01/26/2007 09:44:00 Document Registration [id number] 07/06/2006 09:50:00 Document Registration [id number] 05/19/2006 10:00:00 Document Registration [id number] 04/26/2006 08:11:00 Document Registration [id number] 04/22/2006 08:42:00 Document Registration [id number] 04/07/2006 06:27:00 Document Registration [id number] 03/16/2006 12:35:00 Document Registration [id number] 12/15/2005 09:55:00 Document Registration [id number] 09/28/2005 09:09:00 Document Registration [id number] 09/22/2005 08:34:00 Document Registration [id number] 09/15/2005 10:00:00 Document Registration [id number] 08/28/2005 11:29:00 Document Registration [id number] 06/25/2005 14:25:00 Document Registration [id number] 05/13/2005 09:23:00 Document Registration
[2019-09-16] MEDS ORDERED: RT-ALBUTEROL/IPRATROPIUM 3 ML (DUONEB) VIAL INH ONE (11:00)
--- NOTE | 2019-09-16 11:06 | ED Respiratory ---
General Chief Complaint: Respiratory Problems Stated Complaint: SOA Source: patient Exam Limitations: no limitations History of Present Illness Date Seen by Provider: Sep 16, 2019 Time Seen by Provider: 10:40 Initial Comments Here with report of 4 weeks of increasing shortness of air. Does have history of COPD as well as heart failure. She has tried her inhalers a few times and states that hasn't really helped. She follows with Dr. Morales and Dr. Plunkett. Denies fever or chills. States that she has been isolating throughout the pandemia. Denies upper respiratory illness symptoms or contact with anybody that has been sick. Denies nausea, vomiting or diarrhea. States that she increasingly is getting short of breath and now even with minimal activity. Denies chest pain, abdominal pain or significant swelling or pain in the legs. Reports taking her medications as directed. Timing/Duration: other (4 weeks) Severity: moderate Prior Episodes/Possible Cause: occasional episodes Modifying Factors: Worse With Activity, Worse With Coughing; Improves With Rest Associated Symptoms: No chest pain/soreness; cough; No fever/chills, No muscle aches, No nasal congestion, No nasal drainage; shortness of breath; No sinus infection, No sore throat, No wheezing Allergies and Home Medications Allergies Coded Allergies: Vezeqcn-Uyb-Bel Reductase Inhibitor (Verified Allergy, Severe, MUSCLE WEAKNESS, 11/29/18) Penicillins (Verified Allergy, Intermediate, RASH/SWELLING, 11/29/18) Sulfa (Sulfonamide Antibiotics) (Verified Allergy, Mild, RASH, 11/29/18) Home Medications Albuterol Sulfate 1 Puff Puff, 2 PUFF INH TID, (Reported) 1 PUFF = 90 MCG Aspirin 81 Mg Tab.chew, 81 MG PO DAILY, (Reported) Budesonide/Formoterol Fumarate 10.2 Gm Hfa.aer.ad, 2 PUFF IH BID, (Reported) Cetirizine HCl 10 Mg Tablet, 10 MG PO DAILY, (Reported) Digoxin 250 Mcg Tablet, 250 MCG PO DAILY, (Reported) Docusate Sodium 100 Mg Capsule, 100 MG PO DAILY Prescribed by: REINIER ADEN on 12/08/18 1200 Estradiol 0.5 Mg Tablet, 0.5 MG PO DAILY, (Reported) Furosemide 40 Mg Tablet, 40 MG PO DAILY PRN for SWELLING, (Reported) Hydrocodone Bit/Acetaminophen 1 Tab Tab, 1-2 TAB PO Q6H PRN for PAIN-MODERATE Prescribed by: REINIER ADEN on 12/08/18 1200 Losartan Potassium 50 Mg Tablet, 50 MG PO DAILY, (Reported) Multivits-Min/Iron/FA/Lutein 1 Each Tablet, 1 EACH PO DAILY, (Reported) Omeprazole 20 Mg Tablet.dr, 20 MG PO DAILY Prescribed by: REINIER ADEN on 10/11/18 1029 Sertraline HCl 100 Mg Tablet, 100 MG PO DAILY, (Reported) Patient Home Medication List Home Medication List Reviewed: Yes Review of Systems Review of Systems Constitutional: see HPI; No chills, No fever EENTM: no symptoms reported Respiratory: see HPI Cardiovascular: No chest pain, No edema Gastrointestinal: No abdominal pain, No nausea, No vomiting Genitourinary: no symptoms reported Musculoskeletal: no symptoms reported All Other Systems Reviewed Negative Unless Noted: Yes Past Zieccfs-Mumoyu-Dcgyte Hx Past Med/Social Hx: Reviewed Nursing Past Med/Soc Hx Patient Social History Alcohol Use: Denies Use Recreational Drug Use: No Smoking Status: Never a Smoker 2nd Hand Smoke Exposure: No Recent Foreign Travel: No Contact w/Someone Who Travel: No Recent Hopitalizations: No Immunizations Up To Date Date of Pneumonia Vaccine: Jan 14, 2015 Date of Influenza Vaccine: Jan 17, 2018 Seasonal Allergies Seasonal Allergies: Yes Past Medical History Surgeries: Yes (HEMORRHOID, TOTAL KNEE REPLACEMENT--SEE VERY EXTENSIVE LIST PROVIDED BY PT) Orthopedic Respiratory: Yes ("SEASONAL ASTHMA", SOB WITH MIN EXERTION, HAS "SPOTS" ON LUNGS) Asthma, COPD Cardiac: Yes (LBBB, CHF) High Cholesterol, Hypertension Neurological: No Reproductive Disorders: No Sexually Transmitted Disease: No HIV/AIDS: No Genitourinary: No Gastrointestinal: Yes Chronic Constipation, Irritable Bowel Musculoskeletal: Yes (OSTEOARTHRITIS) Arthritis Endocrine: No HEENT: Yes (GLASSES, PARTIAL DENTURES) Cancer: No Psychosocial: Yes Anxiety, Depression Integumentary: No Blood Disorders: No Adverse Reaction/Blood Tranf: No (N/A) Family Medical History Reviewed Nursing Family Hx Physical Exam Vital Signs - First Documented 09/16/19 10:32 Temp 36.4 Pulse 101 Resp 25 B/P (MAP) 176/85 (115) Pulse Ox 93 O2 Delivery Room Air Capillary Refill : Height: 5'4.00" Weight: 175lbs. 0.0oz. 79.922420tk; 30.0 BMI Method:Stated General Appearance: WD/WN, no apparent distress HEENT: PERRL/EOMI, pharynx normal Neck: full range of motion, supple Respiratory: no accessory muscle use, decreased breath sounds, crackles (b ilateral bases), wheezing (bilateral upper) Cardiovascular: no murmur, tachycardia (100) Gastrointestinal: non tender, soft Extremities: non-tender, normal inspection, no pedal edema, no calf tenderness Neurologic/Psychiatric: alert, oriented x 3 Skin: normal color, warm/dry Progress/Results/Core Measures Suspected Sepsis SIRS Temperature: Pulse: Respiratory Rate: Laboratory Tests 09/16/19 11:00: White Blood Count 9.3 Blood Pressure / Mean: Laboratory Tests 09/16/19 11:00: Creatinine 0.94, Platelet Count 349, Total Bilirubin 0.6 Results/Orders Lab Results Laboratory Tests Test 09/16/19 11:00 Range/Units White Blood Count 9.3 4.3-11.0 10^3/uL Red Blood Count 4.70 4.35-5.85 10^6/uL Hemoglobin 13.3 11.5-16.0 G/DL Hematocrit 41 35-52 % Mean Corpuscular Volume 87 80-99 FL Mean Corpuscular Hemoglobin 28 25-34 PG Mean Corpuscular Hemoglobin Concent 33 32-36 G/DL Red Cell Distribution Width 13.8 10.0-14.5 % Platelet Count 349 130-400 10^3/uL Mean Platelet Volume 9.9 7.4-10.4 FL Neutrophils (%) (Auto) 54 42-75 % Lymphocytes (%) (Auto) 31 12-44 % Monocytes (%) (Auto) 11 0-12 % Eosinophils (%) (Auto) 4 0-10 % Basophils (%) (Auto) 0 0-10 % Neutrophils # (Auto) 5.0 1.8-7.8 X 10^3 Lymphocytes # (Auto) 2.9 1.0-4.0 X 10^3 Monocytes # (Auto) 1.0 0.0-1.0 X 10^3 Eosinophils # (Auto) 0.4 H 0.0-0.3 10^3/uL Basophils # (Auto) 0.0 0.0-0.1 10^3/uL Sodium Level 136 135-145 MMOL/L Potassium Level 3.9 3.6-5.0 MMOL/L Chloride Level 102 98-107 MMOL/L Carbon Dioxide Level 23 21-32 MMOL/L Anion Gap 11 5-14 MMOL/L Blood Urea Nitrogen 13 7-18 MG/DL Creatinine 0.94 0.60-1.30 MG/DL Estimat Glomerular Filtration Rate 57 BUN/Creatinine Ratio 14 Glucose Level 125 H 70-105 MG/DL Calcium Level 9.5 8.5-10.1 MG/DL Corrected Calcium 9.4 8.5-10.1 MG/DL Total Bilirubin 0.6 0.1-1.0 MG/DL Aspartate Amino Transf (AST/SGOT) 28 5-34 U/L Alanine Aminotransferase (ALT/SGPT) 23 0-55 U/L Alkaline Phosphatase 49 40-136 U/L C-Reactive Protein High Sensitivity 0.50 0.00-0.50 MG/DL B-Type Natriuretic Peptide < 10.0 <100.0 PG/ML Total Protein 8.4 H 6.4-8.2 GM/DL Albumin 4.1 3.2-4.5 GM/DL My Orders Orders - SCOOTER TAVARES MD BNP (09/16/19 10:50) Cbc With Automated Diff (09/16/19 10:50) Comprehensive Metabolic Panel (09/16/19 10:50) Hs C Reactive Protein (09/16/19 10:50) Chest Pa/Lat (2 View) (09/16/19 10:50) Ekg Tracing (09/16/19 10:50) Albuterol/Ipra Inhalation Soln (Duoneb I (09/16/19 11:00) Svn Small Volume Nebulizer (09/16/19 10:50) Albuterol Pre-Mix Nebs (Rt) (Proventil (09/16/19 12:10) Svn Small Volume Nebulizer (09/16/19 12:10) Prednisone Tablet (Deltasone Tablet) (09/16/19 12:15) Medications Given in ED Current Medications Medications Dose Ordered Sig/Diana Route Start Time Stop Time Status Last Admin Dose Admin Albuterol/ Ipratropium 3 ml ONCE ONCE INH 09/16/19 11:00 09/16/19 11:01 DC 09/16/19 11:34 3 ML Prednisone 40 mg ONCE ONCE PO 09/16/19 12:15 09/16/19 12:16 DC 09/16/19 12:15 40 MG Vital Signs/I&O 09/16/19 09/16/19 09/16/19 10:32 11:35 12:22 Temp 36.4 Pulse 101 Resp 25 B/P (MAP) 176/85 (115) Pulse Ox 93 98 98 O2 Delivery Room Air Capillary Refill : Progress Note : Progress Note Seen and evaluated. IV, labs, EKG and chest x-ray ordered. Duo neb ordered. Monitor patient. Mixed component of COPD and CHF suspected. Monitor patient. 1213: Improved after DuoNeb for a little while but now feels a little short of breath again. Labs and x-ray do not indicate any significant findings and certainly not CHF. We will treat like COPD exacerbation. Prednisone 40 mg by mouth ordered and albuterol neb ordered. Overall the patient is comfortable. We will monitor for a little while on the prednisone as she states that she's had some problems with steroids in the past but she doesn't remember exactly what that is. I will send a copy of the chart over to Dr. Morales as well and she will call his office on Wednesday. Monitor patient. Overall improved at 1307. I did send a prescription for prednisone 40 mg daily for 4 more days as she does not seem to be having a problem. Discharged home with return precautions. Patient verbalize understanding instructions and agreement with plan. ECG Initial ECG Impression Date: Sep 16, 2019 Initial ECG Impression Time: 10:52 Initial ECG Rate: 91 Initial ECG Rhythm: Normal Sinus Comment Sinus rhythm with left bundle branch block and rate of 91. Left axis deviation. No evidence of ST elevation [place]. Similar but slightly faster rate than 11/17/16. Interpreted by me. Diagnostic Imaging Diagonstic Imaging: Xray Plain Films/CT/US/NM/MRI: chest Comments [facility], [place] NAME: CARLTON SEGURA [facility] REC#: [id number] PT STATUS: REG ER : 1935 PHYSICIAN: SCOOTER TAVARES MD ADMIT DATE: 09/16/19/ER Signed Date of Exam:09/16/19 CHEST PA/LAT (2 VIEW) EXAMINATION: CHEST (PA AND LATERAL) CLINICAL INDICATION: 84-year-old female, shortness of breath. COMPARISON: August 13, 2016. FINDINGS: Heart size and mediastinal contours are unchanged. There is no identified pneumothorax. There is no pleural effusion. There are coarse interstitial opacities. There is no interval focal airspace consolidation. IMPRESSION: 1. Findings of chronic lung disease without identified acute cardiopulmonary abnormality. Dictated by: Dictated on workstation # [id number] Dict: 09/16/19 1129 Trans: 09/16/19 1153 CVB [id number] Interpreted by: AMIRT ÁLVAREZ MD Electronically signed by: AMRIT ÁLVAREZ MD 09/16/19 1153 Departure Impression Primary Impression: COPD with acute exacerbation Disposition: HOME, SELF-CARE Condition: Improved Departure-Patient Inst. Decision time for Depature: 12:17 Referrals: SHYLA WALLACE DO (PCP/Family) Primary Care Physician Patient Instructions: Chronic Obstructive Pulmonary Disease (COPD), Including Emphysema Add. Discharge Instructions: All discharge instructions reviewed with patient and/or family. Voiced unders tanding. Use your albuterol inhaler 2 puffs every 4 hours while awake for the next few days and then as needed. You do not need to use it if you're not having any respiratory problems. Take medications as directed. Call Dr. Morales's office on Wednesday for recheck and further evaluation. Return for increasing short of breath, weakness, chest pain, fever or other concerns as needed. Scripts Prednisone (Prednisone) 20 Mg Tab 40 MG PO DAILY, #8 TAB 0 Refills Prov: SCOOTER TAVARES MD 09/16/19 Copy Copies To 1: ANA LAURA MORALES TIMOTHY D MD Sep 16, 2019 11:06
[2019-09-16 11:12] LABS: BASOPHILS % (AUTO) 0 % (0-10); EOSINOPHILS # (AUTO) 0.4 10^3/uL (0.0-0.3); EOSINOPHILS % (AUTO) 4 % (0-10); HEMATOCRIT 41 % (35-52); HEMOGLOBIN 13.3 G/DL (11.5-16.0); LYMPHOCYTES # (AUTO) 2.9 X 10^3 (1.0-4.0); LYMPHOCYTES % (AUTO) 31 % (12-44); MEAN CORPUSCULAR HEMOGLOBIN 28 PG (25-34); MEAN CORPUSCULAR HGB CONC 33 G/DL (32-36); MEAN CORPUSCULAR VOLUME 87 FL (80-99); MEAN PLATELET VOLUME 9.9 FL (7.4-10.4); MONOCYTES % (AUTO) 11 % (0-12); NEUTROPHILS % (AUTO) 54 % (42-75); PLATELET COUNT 349 10^3/uL (130-400); RED CELL DISTRIBUTION WIDTH 13.8 % (10.0-14.5); WHITE BLOOD COUNT 9.3 10^3/uL (4.3-11.0)
[2019-09-16 11:23] LABS: ALBUMIN 4.1 GM/DL (3.2-4.5); POTASSIUM 3.9 MMOL/L (3.6-5.0)
[2019-09-16 11:24] LABS: CALCIUM 9.5 MG/DL (8.5-10.1)
[2019-09-16 11:26] LABS: TOTAL PROTEIN 8.4 GM/DL (6.4-8.2)
[2019-09-16 11:27] LABS: BILIRUBIN,TOTAL 0.6 MG/DL (0.1-1.0)
[2019-09-16 11:29] LABS: CREATININE SERUM 0.94 MG/DL (0.60-1.30)
--- NOTE | 2019-09-16 11:33 | Diagnostic Imaging Report ---
EXAMINATION: CHEST (PA AND LATERAL) CLINICAL INDICATION: 84-year-old female, shortness of breath. COMPARISON: August 13, 2016. FINDINGS: Heart size and mediastinal contours are unchanged. There is no identified pneumothorax. There is no pleural effusion. There are coarse interstitial opacities. There is no interval focal airspace consolidation. IMPRESSION: 1. Findings of chronic lung disease without identified acute cardiopulmonary abnormality. Dictated by: Dictated on workstation # [id number]
[2019-09-16] MEDS ORDERED: RT-ALBUTEROL SULF 2.5 MG/3 ML PRE-MIX VIAL INH STA (12:10)
[2019-09-16] MEDS ORDERED: predniSONE 20 MG TAB PO ONE (12:15)
[2019-09-16] MEDS ORDERED: PRD20T PO (13:06)
[2019-09-16 13:14] VITALS: BP 155/83
== END 2019-09-16 13:13 | disposition home or self-care (01) ==
LOC: EDUNIT# 10:32 → ER 10:33
DX: J44.1 Chronic obstructive pulmonary disease with (acute) exacerbation (principal); I11.0 Hypertensive heart disease with heart failure; I50.9 Heart failure, unspecified; J45.909 Unspecified asthma, uncomplicated; F41.9 Anxiety disorder, unspecified; F32.9 Major depressive disorder, single episode, unspecified; Z88.0 Allergy status to penicillin; Z88.2 Allergy status to sulfonamides; Z88.8 Allergy status to other drugs, medicaments and biological substances; Z79.82 Long term (current) use of aspirin; Z79.52 Long term (current) use of systemic steroids
CPT/HCPCS: 36415; 71046; 80053; 83880; 85025; 86141; 93005; 94640

== ENCOUNTER 2019-09-27 20:45 | Emergency (ER) | payer MEDICAID, MEDICARE ==
[~2019-09-27 20:45] MED LIST changes: +PRD20T PO
[2019-09-27] MEDS ORDERED: RT-ALBUTEROL/IPRATROPIUM 3 ML (DUONEB) VIAL INH ONE (21:15)
--- NOTE | 2019-09-27 21:21 | ED Cough/URI ---
General Chief Complaint: Respiratory Problems Stated Complaint: SOB/HX COPD AND ASTHMA Nursing Triage Note: TO ED VIA POV AND AMBULATORY TO ROOM 10 FOR COVID-19 PRECAUTIONS. STATES SHE WAS HERE RECENTLY WITH COPD, ASTHMA EXACERBATIONS AND TO SEE DR. MORALES 10/01. STATES SHE IS NOT GETTING BETTER, IS SOB AT REST AND WITH EXERTION. DENIES FEVER AND STATES HAS BEEN STAYING AT HOME. RECENTLY TOOK PREDNISONE. CURRENTLY USES INHALERS PRO AIR AND INCRUSE. HX CHF. Sepsis Screen: No Definite Risk Source: patient Exam Limitations: no limitations History of Present Illness Date Seen by Provider: Sep 27, 2019 Time Seen by Provider: 21:21 Initial Comments To ER with c/o short of breath scheduled to see Dr Morales 10/01. Timing/Duration: constant, getting worse Severity/Quality: moderate Associated Symptoms: cough Allergies and Home Medications Allergies Coded Allergies: Jtzeqsy-Kmm-Ipf Reductase Inhibitor (Verified Allergy, Severe, MUSCLE WEAKNESS, 11/29/18) Penicillins (Verified Allergy, Intermediate, RASH/SWELLING, 11/29/18) Sulfa (Sulfonamide Antibiotics) (Verified Allergy, Mild, RASH, 11/29/18) Home Medications Albuterol Sulfate 1 Puff Puff, 2 PUFF INH TID, (Reported) 1 PUFF = 90 MCG Aspirin 81 Mg Tab.chew, 81 MG PO DAILY, (Reported) Budesonide/Formoterol Fumarate 10.2 Gm Hfa.aer.ad, 2 PUFF IH BID, (Reported) Cetirizine HCl 10 Mg Tablet, 10 MG PO DAILY, (Reported) Digoxin 250 Mcg Tablet, 250 MCG PO DAILY, (Reported) Docusate Sodium 100 Mg Capsule, 100 MG PO DAILY Prescribed by: REINIER ADEN on 12/08/18 1200 Estradiol 0.5 Mg Tablet, 0.5 MG PO DAILY, (Reported) Furosemide 40 Mg Tablet, 40 MG PO DAILY PRN for SWELLING, (Reported) Hydrocodone Bit/Acetaminophen 1 Tab Tab, 1-2 TAB PO Q6H PRN for PAIN-MODERATE Prescribed by: REINIER ADEN on 12/08/18 1200 Losartan Potassium 50 Mg Tablet, 50 MG PO DAILY, (Reported) Multivits-Min/Iron/FA/Lutein 1 Each Tablet, 1 EACH PO DAILY, (Reported) Omeprazole 20 Mg Tablet.dr, 20 MG PO DAILY Prescribed by: REINIER ADEN on 10/11/18 1029 Prednisone 20 Mg Tab, 40 MG PO DAILY Prescribed by: SCOOTER TAVARES on 09/16/19 1306 Sertraline HCl 100 Mg Tablet, 100 MG PO DAILY, (Reported) Patient Home Medication List Home Medication List Reviewed: Yes Review of Systems Review of Systems Constitutional: see HPI EENTM: see HPI Respiratory: see HPI, short of breath Cardiovascular: no symptoms reported Genitourinary: no symptoms reported Musculoskeletal: no symptoms reported Skin: no symptoms reported Psychiatric/Neurological: No Symptoms Reported Hematologic/Lymphatic: No Symptoms Reported Past Giyjkqo-Mwwcmv-Euimos Hx Patient Social History Alcohol Use: Denies Use Recreational Drug Use: No Smoking Status: Never a Smoker 2nd Hand Smoke Exposure: No Recent Foreign Travel: No Contact w/Someone Who Travel: No Recent Infectious Disease Expo: No Recent Hopitalizations: No Physical Abuse: No Sexual Abuse: No Mistreated: No Fear: No Immunizations Up To Date Date of Pneumonia Vaccine: Jan 14, 2015 Date of Influenza Vaccine: Jan 17, 2018 Seasonal Allergies Seasonal Allergies: Yes Past Medical History Surgeries: Yes (HEMORRHOID, TOTAL KNEE REPLACEMENT--SEE VERY EXTENSIVE LIST PROVIDED BY PT) Orthopedic Respiratory: Yes (HAS "SPOTS" ON LUNGS) Asthma, COPD Cardiac: Yes (LBBB, CHF) High Cholesterol, Hypertension Neurological: No Reproductive Disorders: No Sexually Transmitted Disease: No HIV/AIDS: No Genitourinary: No Gastrointestinal: Yes Chronic Constipation, Irritable Bowel Musculoskeletal: Yes (OSTEOARTHRITIS) Arthritis Endocrine: No HEENT: Yes (GLASSES, PARTIAL DENTURES) Cancer: No Psychosocial: Yes Anxiety, Depression Integumentary: No Blood Disorders: No Adverse Reaction/Blood Tranf: No (N/A) Physical Exam Vital Signs - First Documented 09/27/19 09/27/19 21:08 22:45 Temp 37.0 Pulse 86 Resp 22 B/P (MAP) 151/91 (111) Pulse Ox 95 O2 Delivery Room Air Capillary Refill : Less Than 3 Seconds Height: 5'4.00" Weight: 175lbs. 0.0oz. [id number]; BMI Method:Stated General Appearance: WD/WN, no apparent distress Eyes: Bilateral Eye Normal Inspection, Bilateral Eye PERRL, Bilateral Eye EOMI HEENT: PERRL/EOMI, normal ENT inspection Respiratory: no respiratory distress, no accessory muscle use Gastrointestinal: normal bowel sounds, non tender, soft Neurologic/Psychiatric: alert, normal mood/affect, oriented x 3 Skin: normal color, warm/dry Progress/Results/Core Measures Suspected Sepsis Recent Fever Within 48 Hours: No Infection Criteria Present: None New/Unexplained Altered Menta: No Sepsis Screen: No Definite Risk SIRS Temperature: Pulse: 86 Respiratory Rate: 22 Laboratory Tests 09/27/19 21:30: White Blood Count 11.5H Blood Pressure 151 /91 Mean: 111 Laboratory Tests 09/27/19 21:30: Creatinine 0.77, Platelet Count 323 Results/Orders Lab Results Laboratory Tests Test 09/27/19 21:30 09/27/19 21:44 Range/Units White Blood Count 11.5 H 4.3-11.0 10^3/uL Red Blood Count 4.52 4.35-5.85 10^6/uL Hemoglobin 13.0 11.5-16.0 G/DL Hematocrit 40 35-52 % Mean Corpuscular Volume 88 80-99 FL Mean Corpuscular Hemoglobin 29 25-34 PG Mean Corpuscular Hemoglobin Concent 33 32-36 G/DL Red Cell Distribution Width 13.7 10.0-14.5 % Platelet Count 323 130-400 10^3/uL Mean Platelet Volume 10.1 7.4-10.4 FL Neutrophils (%) (Auto) 52 42-75 % Lymphocytes (%) (Auto) 35 12-44 % Monocytes (%) (Auto) 10 0-12 % Eosinophils (%) (Auto) 3 0-10 % Basophils (%) (Auto) 0 0-10 % Neutrophils # (Auto) 6.0 1.8-7.8 X 10^3 Lymphocytes # (Auto) 4.0 1.0-4.0 X 10^3 Monocytes # (Auto) 1.1 H 0.0-1.0 X 10^3 Eosinophils # (Auto) 0.3 0.0-0.3 10^3/uL Basophils # (Auto) 0.0 0.0-0.1 10^3/uL Sodium Level 137 135-145 MMOL/L Potassium Level 4.1 3.6-5.0 MMOL/L Chloride Level 102 98-107 MMOL/L Carbon Dioxide Level 24 21-32 MMOL/L Anion Gap 11 5-14 MMOL/L Blood Urea Nitrogen 11 7-18 MG/DL Creatinine 0.77 0.60-1.30 MG/DL Estimat Glomerular Filtration Rate > 60 BUN/Creatinine Ratio 14 Glucose Level 100 70-105 MG/DL Calcium Level 9.7 8.5-10.1 MG/DL B-Type Natriuretic Peptide < 10.0 <100.0 PG/ML Blood Gas Puncture Site RT RADIAL Blood Gas Patient Temperature 37.0 Arterial Blood pH 7.43 7.37-7.43 Arterial Blood Partial Pressure CO2 39 35-45 MMHG Arterial Blood Partial Pressure O2 49 L 79-93 MMHG Arterial Blood HCO3 25 23-27 MMOL/L Arterial Blood Total CO2 26.6 21.0-31.0 MMOL/L Arterial Blood Oxygen Saturation 85 L 94-100 % Arterial Blood Base Excess 1.5 -2.5-2.5 MMOL/L Faisal Test YES-POS Blood Gas Ventilator Setting NO Blood Gas Inspired Oxygen ROOM AIR My Orders Orders - SCOTTIE COLVIN APRN Cbc With Automated Diff (09/27/19 21:14) BNP (09/27/19 21:14) Basic Metabolic Panel (09/27/19 21:14) Ekg Tracing (09/27/19 21:14) Chest 1 View, Ap/Pa Only (09/27/19 21:14) Albuterol/Ipra Inhalation Soln (Duoneb I (09/27/19 21:15) Svn Small Volume Nebulizer (09/27/19 21:14) Coronavirus Sars-Cov-2 So 2018 (09/27/19 21:36) Arterial Blood Gas (09/27/19 21:45) Rx-Albuterol Nebs (Rx-Proventil Nebs) (09/27/19 22:47) Vital Signs/I&O 09/27/19 09/27/19 21:08 22:45 Temp 37.0 37.0 Pulse 86 82 Resp 22 18 B/P (MAP) 151/91 (111) 159/60 (111) Pulse Ox 95 O2 Delivery Room Air Room Air Capillary Refill : Less Than 3 Seconds Blood Pressure Mean: 111 Departure Communication (Admissions) blood gas looks venous, SpO2 96% room air. Impression Primary Impression: Dyspnea Qualified Codes: R06.09 - Other forms of dyspnea Disposition: 01 HOME, SELF-CARE Condition: Stable Departure-Patient Inst. Decision time for Depature: 22:41 Referrals: SHYLA WALLACE DO (PCP/Family) Primary Care Physician Patient Instructions: Shortness of Breath (Dyspnea) Add. Discharge Instructions: Return to ER for any concerns 2. Keep your appointment with Dr. Morales 3. All discharge instructions reviewed with patient and/or family. Voiced understanding. SCOTITE COLVIN APRN Sep 27, 2019 21:21
--- NOTE | 2019-09-27 21:30 | NUR ---
COVID-19 SWAB COLLECTED AND SENT TO LAB WITH [facility] PAPERWORK AND SCRAP BALER NOTIFIED.
[2019-09-27 21:57] LABS: BASOPHILS % (AUTO) 0 % (0-10); EOSINOPHILS # (AUTO) 0.3 10^3/uL (0.0-0.3); EOSINOPHILS % (AUTO) 3 % (0-10); HEMATOCRIT 40 % (35-52); LYMPHOCYTES % (AUTO) 35 % (12-44); MEAN CORPUSCULAR HEMOGLOBIN 29 PG (25-34); MEAN CORPUSCULAR HGB CONC 33 G/DL (32-36); MEAN CORPUSCULAR VOLUME 88 FL (80-99); MEAN PLATELET VOLUME 10.1 FL (7.4-10.4); MONOCYTES # (AUTO) 1.1 X 10^3 (0.0-1.0); MONOCYTES % (AUTO) 10 % (0-12); NEUTROPHILS % (AUTO) 52 % (42-75); PLATELET COUNT 323 10^3/uL (130-400); RED CELL DISTRIBUTION WIDTH 13.7 % (10.0-14.5); WHITE BLOOD COUNT 11.5 10^3/uL (4.3-11.0)
[2019-09-27 21:58] LABS: ABG BASE EXCESS 1.5 MMOL/L (-2.5-2.5); ABG OXYGEN SATURATION 85 % (94-100); ABG PCO2 39 MMHG (35-45); ABG PH 7.43 (7.37-7.43); ABG PO2 49 MMHG (79-93); ABG TCO2 26.6 MMOL/L (21.0-31.0)
[2019-09-27 22:02] LABS: ALLENS TEST YES-POS; INSPIRED O2 ROOM AIR; VENTILATOR NO
[2019-09-27 22:11] LABS: CHLORIDE 102 MMOL/L (98-107); POTASSIUM 4.1 MMOL/L (3.6-5.0); SODIUM 137 MMOL/L (135-145)
[2019-09-27 22:12] LABS: CALCIUM 9.7 MG/DL (8.5-10.1)
[2019-09-27 22:13] LABS: GLUCOSE 100 MG/DL (70-105)
[2019-09-27 22:14] LABS: CARBON DIOXIDE 24 MMOL/L (21-32)
[2019-09-27 22:17] LABS: CREATININE SERUM 0.77 MG/DL (0.60-1.30); GFR ESTIMATED > 60
[2019-09-27 22:18] LABS: BUN/CREATININE RATIO 14
[2019-09-27 22:45] VITALS: BP 159/60
[2019-09-27] MEDS ORDERED: RX-ALBUTEROL NEB 2.5 MG/3 ML PACK #5 IH STA (22:47)
--- OUTSIDE RECORDS SUMMARY | 2019-09-27 23:10 | XMS REPORT ---
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 09-16-2019 PENDING LOCATION [Mass/Vol] 07:00-0400 [facility] ([id number]) RBC (Bld) 4.70 10*6/uL (NEG) 4.2 - 6.1 09-16-2019 PENDING L OCATION [#/Vol] 10*6/uL 07:00-0400 [facility] ([id number]) Sodium 136 mmol/L (NEG) 135 - 145 mmol/L 09-16-2019 PEND ING LOCATION [Moles/Vol] 07:00-0400 [facility] ([id number]) Urea nitrogen 13 mg/dL (NEG) 7 - 20 mg/dL 09-16-2019 PENDI NG LOCATION [Mass/Vol] 07:00-0400 [facility] ([id number]) Urea 14 mg/mg (no code) 6 - 22 mg/mg 09-16-2019 PENDING L OCATION nitrogen/Creatin 07:000400 [facility] ([id number]) ine [Mass ratio] WBC (Bld) 9.3 10*3/uL (NEG) 3.5 - 10.5 09-16-2019 PENDING L OCATION [#/Vol] 10*3/uL 07:000400 [facility] ([id number]) venous blood hemoglobin measurement (mass/volume) on 2018-12-08 Hemoglobin (Bld) 13.0 g/dL (no code) 12.1 - 17.2 g/dL [facility] [Mass/Vol] [facility] ([id number]) blood monocytes/100 leukocytes on 2018-12-08 Monocytes/100 9 % (no code) 2 - 8 % [facility] WBC (Bld) [facility] ([id number]) blood monocytes automated count (number/volume) on 2018-12-08 Monocytes (Bld) 0.8 10*3/uL (no code) 0.3 - 0.9 [facility] [#/Vol] 10*3/uL [facility] ([id number]) blood hematocrit (volume fraction) on 2018-12-08 Hematocrit (Bld) 40 % (no code) 36.1 - 50.3 % [facility] [Volume [facility] fraction] ([id number]) blood erythrocytes automated count (number/volume) on 2018-12-08 RBC (Bld) 4.68 10*6/uL (no code) 4.2 - 6.1 [facility] [#/Vol] 10*6/uL [facility] ([id number]) automated erythrocyte mean corpuscular volume (mcv) measurement on 2018-12-08 MCV (RBC) 86 fL (no code) 80 - 100 fL [facility] [Entitic vol] [facility] ([id number]) automated erythrocyte mean corpuscular hemoglobin concentration measurement (mass/volume) on 2018-12-08 MCHC (RBC) 32 g/dL (no code) 32 - 36 g/dL [facility] [Mass/Vol] [facility] ([id number]) automated erythrocyte mean corpuscular hemoglobin (mass per erythrocyte) on 2018-12-08 MCH (RBC) 28 pg (no code) 27 - 31 pg [facility] [Entitic mass] [facility] ([id number]) automated erythrocyte distribution width ratio on 2018-12-08 Erythrocyte 14.5 % (no code) 11.6 - 14.6 % [facility] distribution [facility] width (RBC) ([id number]) [Ratio] automated eosinophil count on 2018-12-08 Eosinophils 0.3 10*3/uL (no code) 0.05 - 0.5 [facility] (Bld) [#/Vol] 10*3/uL [facility] ([id number]) automated blood platelet mean volume measurement on 2018-12-08 Platelet mean 10.1 fL (no code) 7.2 - 11.7 fL [facility] volume (Bld) [facility] [Entitic vol] ([id number]) automated blood platelet count (count/volume) on 2018-12-08 Platelets (Bld) 311 10*3/uL (no code) 150 - 450 [facility] [#/Vol] 10*3/uL [facility] ([id number]) automated blood neutrophils/100 leukocytes on 2018-12-08 Neutrophils/100 54 % (no code) 40 - 60 % [facility] WBC (Bld) [facility] ([id number]) automated blood neutrophil count (number/volume) on 2018-12-08 Neutrophils 4.8 10*3/uL (no code) 1.7 - 7 10*3/uL [facility] (Bld) [#/Vol] [facility] ([id number]) automated blood lymphocytes/100 leukocytes on 2018-12-08 Lymphocytes/100 33 % (no code) 20 - 40 % [facility] WBC (d) [facility] ([id number]) automated blood lymphocyte count (number/volume) on 2018-12-08 Lymphocytes 2.9 10*3/uL (no code) 0.9 - 2.9 [facility] (Bld) [#/Vol] 10*3/uL [facility] ([id number]) automated blood leukocyte count (number/volume) on 2018-12-08 WBC (Bld) 8.9 10*3/uL (no code) 3.5 - 10.5 [facility] [#/Vol] 10*3/uL [facility] ([id number]) automated blood eosinophils/100 leukocytes on 2018-12-08 Eosinophils/100 3 % (no code) 1 - 4 % [facility] WBC (d) [facility] ([id number]) automated blood basophils/100 leukocytes on 2018-12-08 Basophils/100 0 % (no code) 0.5 - 1 % [facility] WBC (Bld) [facility] ([id number]) automated blood basophil count (number/volume) on 2018-12-08 Basophils (Bld) 0.0 10*3/uL (no code) 0 - 0.3 10*3/uL [facility] [#/Vol] [facility] ([id number]) Vital Signs The data below is from [...] inches 01/08/2016 4:23pm Height (Calculated Centimeters) 162. 653840 cm 01/08/2016 4:23pm Weight (Pounds) 180 pounds 01/08/2016 4:23pm Weight (Calculated Kilograms) 81.646 627 kilograms 01/08/2016 4:23pm Capillary Refill Capillary Refill Less Than 3 Seconds 01/08/2016 4:23pm Height 5 ft 4 in Weight 180 lb Body Mass Index 30.9 kg/m^2 Vital Response Date/Time Temperature (Fahrenheit) 97.3 degree s F (97.6 - 99.5) Temperature (Calculated Celsius) 36. 28392 degrees C (36.4 - 37.5) Temperature Source Tympanic Pulse Rate (adult) 67 bpm (60 - 90) Respiratory Rate 18 bpm (12 - 24) O2 Sat by Pulse Oximetry 96 % (88 - 100) Blood Pressure 147/76 mm Hg Pain Pain Intensity 0 Height (Feet) 5 feet Height (Inches) 4.00 inches Height (Calculated Centimeters) 162. 077342 cm Weight (Pounds) 183 pounds Weight (Calculated Grams) 99266.405 gm Weight (Calculated Kilograms) 83.007 405 kilograms Calculated BMI 31.41 Vital Response Date/Time Temperature (Fahrenheit) 98.2 degree s F (97.6 - 99.5) 12/08/2014 9:30pm Temperature (Calculated Celsius) 36. 19004 degrees C (36.4 - 37.5) 12/08/2014 9:30pm [...] inches 12/08/2014 9:30pm Height (Calculated Centimeters) 162. 635461 cm 12/08/2014 9:30pm Weight (Pounds) 480 pounds 12/08/2014 9:30pm Weight (Calculated Kilograms) 217.72 4340 kilograms 12/08/2014 9:30pm Calculated BMI 82.38 9:30pm Vital Response Date/Time Temperature (Fahrenheit) 97.3 degree s F (97.6 - 99.5) 11/17/2016 1:45pm Temperature (Calculated Celsius) 36. 41119 degrees C (36.4 - 37.5) 11/17/2016 1:45pm [...] inches 11/17/2016 7:26am Height (Calculated Centimeters) 162. 769727 cm 11/17/2016 7:26am Weight (Pounds) 173 pounds 11/17/2016 7:26am Weight (Ounces) 0.0 oz 0 11/17/2016 7:26am Weight (Calculated Grams) 38709.48 gm 11/17/2016 7:26am Weight (Calculated Kilograms) 78.471 [...] inches 10/05/2018 1:45pm Height (Calculated Centimeters) 162. 922267 cm 10/05/2018 1:45pm Weight (Pounds) 173 pounds 10/05/2018 1:45pm Weight (Ounces) 0.0 oz 0 10/05/2018 1:45pm Weight (Calculated Grams) 94054.48 gm 10/05/2018 1:45pm Weight (Calculated Kilograms) 78.471 481 kilograms 10/05/2018 1:45pm Calculated BMI 29.7 09/11 1:45pm Vital Response Date/Time Temperature (Fahrenheit) 98.0 degree s F (97.6 - 99.5) 10/11/2018 11:14am Temperature (Calculated Celsius) 36. 45107 degrees C (36.4 - 37.5) 10/11/2018 11:14am [...] inches 10/11/2018 9:32am Height (Calculated Centimeters) 162. 157099 cm 10/11/2018 9:32am Weight (Pounds) 173 pounds 10/11/2018 9:32am Weight (Ounces) 0.0 oz 0 10/11/2018 9:32am Weight (Calculated Grams) 71732.48 gm 10/11/2018 9:32am Weight (Calculated Kilograms) 78.471 481 kilograms 10/11/2018 9:32am Calculated BMI 29.7 05/2018 9:32am Weight Measurement Method Standing Scale 10/11/2018 9:32am Vital Response Date/Time Height (Feet) 5 feet 1:49pm Height (Inches) 4.00 inches 11/29/2018 1:49pm Height (Calculated Centimeters) 162. 478521 cm 11/29/2018 1:49pm Weight (Pounds) 175 pounds 11/29/2018 1:49pm Weight (Ounces) 0.0 oz 0 11/29/2018 1:49pm Weight (Calculated Grams) 94692.67 gm 11/29/2018 1:49pm Weight (Calculated Kilograms) 79.378 666 kilograms 11/29/2018 1:49pm Calculated BMI 30.0 11/11 1:49pm Vital Response Date/Time Temperature (Fahrenheit) 96.9 degree s F (97.6 - 99.5) 12/08/2018 2:45pm Temperature (Calculated Celsius) 36. 69655 degrees C (36.4 - 37.5) 12/08/2018 2:15pm [...] inches 12/08/2018 9:50am Height (Calculated Centimeters) 162. 619845 cm 12/08/2018 9:50am Weight (Pounds) 175 pounds 12/08/2018 9:50am Weight (Ounces) 0.0 oz 0 12/08/2018 9:50am Weight (Calculated Grams) 03646.67 gm 12/08/2018 9:50am Weight (Calculated Kilograms) 79.378 666 kilograms 12/08/2018 9:50am Calculated BMI 30.0 11/11 9:50am Vital Response Date/Time Temperature (Fahrenheit) 96.9 degree s F (97.6 - 99.5) 12/08/2018 2:45pm Temperature (Calculated Celsius) 36. 91315 degrees C (36.4 - 37.5) 12/08/2018 2:15pm [...] inches 12/08/2018 9:50am Height (Calculated Centimeters) 162. 910856 cm 12/08/2018 9:50am Weight (Pounds) 175 pounds 12/08/2018 9:50am Weight (Ounces) 0.0 oz 0 12/08/2018 9:50am Weight (Calculated Grams) 46966.67 gm 12/08/2018 9:50am Weight (Calculated Kilograms) 79.378 666 kilograms 12/08/2018 9:50am Calculated BMI 30.0 11/11 9:50am Interventions No Information Plan of Treatment The data below is from unstructured sources Discharge Date 01/08/16 6:10pm Disposition 01 HOME, SELF-CARE Condition at Discharge Improved Instructions/Education Provided Ches t Pain (ED) Healthy Heart Diet (ED) Prescriptions See Medication Section Referrals SHYLA WALLACE DO - P [facility] Physician SHYLA WALLACE DO - Primary Care Physician TRISHA WANG MD FACP FAC CCDS - Additional Instructions/Education LO TS OF CLEAR LIQUIDS TAKE YOUR MEDICATIONS PRESCRIBED FOLLOW UP WITH DR. WANG THIS WEEK FOR FURTHER CARE All discharge instructions reviewed with patient and/or family. Voiced understanding. Discharge Date 12/09/14 12:59am Disposition 01 HOME, SELF-CARE Condition at Discharge Improved Instructions/Education Provided Acut e Abdominal Pain (ED) Prescriptions See Medication Section Referrals SHYLA WALLACE P [facility] Physician Additional Instructions/Education Al l discharge instructions [...] EGD-ESOPHAGOGASTRODUODENOSCOPY Prescriptions See Medication Section Discharge Date 08/20/19 3:32pm Prescriptions See Medication Section Discharge Date [...] (D-E/F/S) Dental caries on LEE NEARING (no [employer] Extraction/Filling/SSC smooth surface phone) DENTAL (no phone) penetrating into dentin 12-09-2017 (D-E/F/S) Encounter for dental LEE NEARING (no [employer] Extraction/Filling/SSC examination and phone) DENTAL (no phone) cleaning without abnormal findings 12-08-2018 Admission to day no information REINIER Haney ADEN Work no organization name - surgery Phone: 12-08-2018 10-11-2018 Admission to day no information REINIER ADEN Work no organization name - surgery Phone: 10-11-2018 09-16-2019 Emergency department no information SCOOTER AVERY MD, [facility] - patient visit (no phone) [facility] 09-16-2019 (no phone) 01-08-2016 Emergency department no information GILLIAN DE PAZ DO (no [facility] - patient visit phone) [facility] 01-08-2016 (no phone) 12-08-2014 Emergency department no information SCOOTER GOMEZ [facility] - patient visit (no phone) [facility] 12-08-2014 (no phone) 10-28-2010 Evaluation and no information no name [...] ganization name 04-13-2017 Patient encounter no information [facility] (no phone) [facility] (no phone) 03-13-2017 Patient encounter no information no name no or ganization name 02-16-2017 Patient encounter no information [facility] (no phone) [facility] 04-12-2017 (no phone) NEGATED Patient encounter no information no name [...] ganization name 01-07-2017 Patient encounter no information [facility] (no phone) [facility] 01-09-2017 (no phone) 11-17-2016 Patient encounter no information no name no or ganization name - 11-17-2016 10-06-2016 Patient encounter no information no name no or ganization name 08-25-2016 Patient encounter no information no name no or ganization name 08-13-2016 Patient encounter no information no name no or ganization name 02-24-2016 Patient encounter no information TRISHA HUERTA I [facility] (no phone) [facility] (no phone) 01-23-2016 Patient encounter no information no name no or ganization name 01-22-2016 Patient encounter no information no name no or ganization name 01-17-2016 Patient encounter no information no name no or ganization name 01-14-2016 Patient encounter no information no name no or ganization name 10-03-2015 Patient encounter no information SHYLA Alexander DO [facility] (no phone) [facility] (no phone) 02-20-2015 Patient encounter no information no name [...] information no name no or ganization name 09-16-2019 Patient encounter no information SCOOTER TAVARES MD [facility] procedure (no phone) [facility] (no phone) 06-21-2019 Patient encounter no information XAVIER ALFARO (n o procedure phone) [facility] (no phone) 03-15-2019 Patient encounter no information TRISHA LOPEZA I [facility] procedure (no phone) [facility] (no phone) 12-21-2018 Patient encounter no information [facility] procedure 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 (no phone) [facility] (no phone) 12-08-2018 Patient encounter no information no name no or ganization name - procedure 12-08-2018 12-08-2018 Patient encounter no information REINIER D ADEN DO (no [facility] - procedure phone) [facility] 12-08-2018 (no phone) 11-29-2018 Patient encounter no information REINIER D KEIKO Wor k no organization name - procedure Phone: 11-29-2018 REINIER Medina SEAMANADEN 11-29-2018 Patient encounter no information REINIER D ADEN DO (no [facility] - procedure phone) [facility] 11-29-2018 (no phone) 11-21-2018 Patient encounter no information REINIER D KEIKO Wor k no organization name procedure REINIER D ADEN 11-21-2018 Patient encounter no information REINIER D ADEN DO (no [facility] procedure phone) [facility] (no phone) 11-01-2018 Patient encounter no information REINIER D ADEN Wor k no organization name procedure 11-01-2018 Patient encounter no information REINIER D ADEN DO (no [facility] procedure phone) [facility] (no phone) 10-11-2018 Patient encounter no information no name no or ganization name - procedure 10-11-2018 10-11-2018 Patient encounter no information REINIER ADEN DO (no [facility] - procedure phone) [facility] 10-11-2018 (no phone) 10-05-2018 Patient encounter no information REINIER ADEN Wor k no organization name - procedure Phone: 10-05-2018 REINIER ADEN 10-05-2018 Patient encounter no information REINIER ADEN DO (no [facility] - procedure phone) [facility] 10-05-2018 (no phone) 10-04-2018 Patient encounter no information no name no or ganization name procedure 10-04-2018 Patient encounter no information no name no or ganization name procedure 09-26-2018 Patient encounter no information MAME GIRARD Work no organization name procedure MAME GIRARD 09-26-2018 Patient encounter no information MAME GIRARD DO ( no [facility] procedure phone) [facility] (no phone) 07-25-2018 Patient encounter no information no name no or ganization name procedure 07-25-2018 Patient encounter no information TRISHA HUERTA I [facility] procedure (no phone) [facility] (no phone) 07-05-2018 Patient encounter no information no name no or ganization name procedure 06-03-2018 Patient encounter no information no name no or ganization name procedure 02-01-2018 Patient encounter no information SHYLA ROBINDE R DO [facility] procedure (no phone) [facility] (no phone) 01-31-2018 Patient encounter no information SHYLA BACHLENDE R DO [facility] procedure (no phone) [facility] (no phone) 09-23-2017 Patient encounter no information MAME GIRARD DO ( no [facility] procedure phone) [facility] (no phone) 09-20-2017 Patient encounter no information [facility] procedure 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 (no phone) [facility] (no phone) 03-13-2017 Patient encounter no information DEJA PARKS APR N [facility] procedure (no phone) [facility] (no phone) 02-09-2017 Patient encounter no information no name [...] name procedure 11-17-2016 Patient encounter no information TRISHA HUERTA I [facility] - procedure (no phone) [facility] 11-17-2016 (no phone) 10-06-2016 Patient encounter no information no name no or ganization name procedure 10-06-2016 Patient encounter no information [facility] procedure PROJECT ENGINEER (no phone) [facility] C GIRARD DO (no phone) (no phone) [facility] DO (no phone) [facility] PROJECT ENGINEER (no phone) 08-25-2016 Patient encounter no information ANA LAURA FERRER DO (no [facility] procedure phone) [facility] (no phone) 08-13-2016 Patient encounter no information SHYLA A GELLENDE R DO [facility] procedure (no phone) [facility] (no phone) 01-23-2016 Patient encounter no information HELENE TEJEDA AR BLOOD TYPER [facility] procedure (no phone) [facility] (no phone) 01-22-2016 Patient encounter no information HELENE TEJEDA AR BLOOD TYPER [facility] procedure (no phone) [facility] (no phone) 01-17-2016 Patient encounter no information HELENE TEJEDA AR BLOOD TYPER [facility] procedure (no phone) [facility] (no phone) 01-14-2016 Patient encounter no information SHYLA A GELLENDE R DO [facility] procedure (no phone) [facility] (no phone) 01-07-2016 Patient encounter no information SHYLA A GELLENDE R DO [facility] procedure (no phone) [facility] (no phone) 02-20-2015 Patient encounter no information MAME GIRARD DO ( no [facility] procedure phone) [facility] (no phone) 12-06-2014 Patient encounter no information KIM ROCA MD (no [facility] procedure phone) [facility] (no phone) 09-12-2014 Patient encounter no information MOISES Harrison BARFIELDP ( no [facility] procedure phone) [facility] (no phone) 01-31-2014 Patient encounter no information no name [...] no information Encounter for other no name (no phone) preprocedural examination Medical Equipment No Information Payers Normalized Payer Value Medicaid [id number] ([id number]) Self-pay [id number] ([id number]) Medicare [id number] ([id number]) Summary Purpose eClinicalWorks SubmissioneClinicalWorks SubmissioneClinicalWorks SubmissioneClinicalWorks Submission Advance Directives Directive Response Recor ded Date/Time Advance Directives No 9:34pm Health Care Power of Car Rental Agent Yes 12/08/14 9:34pm Organ Donor Yes 12/08/14 9:34pm Directive Response Recor ded Date/Time Advance Directives No 12:19pm Health Care Power of Car Rental Agent Yes 01/30/14 12:19pm Organ Donor Yes 01/30/14 12:19pm Resuscitation Status Full Code 01/30/14 12:19pm Directive Response Recor ded Date/Time Advance Directives No 9:34pm Health Care Power of Car Rental Agent Yes 12/08/14 9:34pm Organ Donor Yes 12/08/14 9:34pm Resuscitation Status Full Code 12/08/14 9:34pm Directive Response Recor ded Date/Time Advance Directives No 7:21am Health Care Power of Car Rental Agent Yes 11/17/16 7:21am Organ Donor Yes 11/17/16 7:21am Resuscitation Status Full Code 11/17/16 7:21am Directive Response Recor ded Date/Time Advance Directives No 7:21am Health Care Power of Car Rental Agent Yes 11/17/16 7:21am Organ Donor Yes 11/17/16 7:21am Directive Response Recor ded Date/Time Advance Directives Yes 0 10/05/18 1:46pm Health Care Power of Car Rental Agent Yes 10/05/18 1:46pm Organ Donor Yes 11/17/16 7:21am Resuscitation Status Full Code 10/05/18 1:46pm Directive Response Recor ded Date/Time Advance Directives Yes 0 10/11/18 9:37am Health Care Power of Car Rental Agent Yes 10/11/18 9:37am Organ Donor Yes 10/11/18 9:37am Resuscitation Status Full Code 10/11/18 9:37am Directive Response Recor ded Date/Time Advance Directives Yes 0 11/29/18 2:36pm Health Care Power of Car Rental Agent Yes 11/29/18 2:36pm Organ Donor Yes 11/29/18 2:36pm Resuscitation Status Full Code 11/29/18 2:36pm Directive Response Recor ded Date/Time Advance Directives Yes 0 12/08/18 9:50am Health Care Power of Car Rental Agent Yes 12/08/18 9:50am Organ Donor Yes 12/08/18 [...] This clinical document has been generated using [employer] software that has been certified by the Office of the National Coordinator for Health Information Technology (ONC 15.99.04.3023.Diam.31.00.0.638390) and the National Committee for Health And Wellness Coach (NCQA, as an eMeasure certified technology). FOR [...] BASED ON T HE PRIMARY CLINICAL RECORDS. [employer] provides no warranty or guara ntee of the accuracy or completeness of information in this document.The followi information is based on time limited clinical information UNRECOGNIZED CONTENT PROVIDED BELOW FOR UNRECOGNIZED SECTION MEDICAL (GENERAL) HISTORY Type Description Date Medical History hypertensive heart disease Medical History joint replacement, k nee replacement Medical History blood thinners aspirin 81m g Medical History arthritis Medical History pt is taking [place] Surgical History knee replacement Left 2010 Surgical History female type surgeries 1971- 2009 Hospitalization History knee surgery 2010 Hospitalization History chest discom fort released with medication 2014 UNRECOGNIZED CONTENT PROVIDED BELOW FOR UNRECOGNIZED SECTION REASON FOR VISIT Restorative/twestRestorative - DERRICK berry
--- OUTSIDE RECORDS SUMMARY | 2019-09-27 23:12 | XMS REPORT | Continuity of Care Document ---
Author Organization Unknown Address Unknown Phone Unavailable Allergies Active Description Code Type Severity Reaction Onset Reported/Identified Relationship to Patient Clinical Status Yes Penicillins [id number] Drug Aller gy Unknown CAN TAKE CEPHLA 06/18/2009 Yes Niacin, pravastatin, Lipitor, Fish Oil Niacin, pravastatin, Lipitor, Fish Oil Unknown N/A 12/08/2014 Yes Sulfa (Sulfonamide Antibiotics) [id number] Drug Allergy Unknown N/A 015 Yes Mnyabgj-Luv-Prg Reductase Inhibitor [id number] Drug Allergy Severe MUSCLE WEAKNESS 11/29/2018 Yes Penicillins [id number] Drug Aller gy Moderate RASH/SWELLING 11/29/2018 Yes Sulfa (Sulfonamide Antibiotics) [id number] Drug Allergy Mild RASH 9 Medications [...] 10/29/2010 Ot 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 10/29/[address] PAIN [...] 02/27/2014 Ot 719.45 02/27/2014 BAIMA, HELENE L LABEL SEWER Ot 272.4 02/27/2014 BAIMA, HELENE L LABEL SEWER Ot 272.4 02/27/2014 BAIMA, HELENE L LABEL SEWER Ot 401.9 02/27/2014 BAIMA, HELENE L LABEL SEWER Ot 414.00 02/27/2014 BAIMA, HELENE L LABEL SEWER Ot 416.8 02/27/2014 BAIMA, HELENE L LABEL SEWER Ot 426.3 02/27/2014 BAIMA, HELENE L LABEL SEWER Ot 272.4 02/27/2014 BAIMA, HELENE L LABEL SEWER Ot 401.9 02/27/2014 BAIMA, HELENE L LABEL SEWER Ot 414.00 02/27/2014 BAIMA, HELENE L LABEL SEWER Ot 416.8 02/27/2014 BAIMA, HELENE L LABEL SEWER Ot 426.3 02/27/2014 CARISSA PEDRAZA, ANA LAURA [...] DOSON M Ot 786. 05 02/27/2014 SHYLA WALLACE DO Ot 786.05 02/[facility] 786.50 02/27/2014 BEVERLYWV, HELENE L LABEL SEWER Ot 272.4 02/27/2014 BAIMA, HELENE L LABEL SEWER Ot 414.00 02/27/2014 BAIMA, HELENE L LABEL SEWER Ot V58.69 02/27/2014 MAME GIRARD DO Ot V76.1 2 02/27/2014 SHYLA [...] 03/21/2014 Ot 414.00 03/21/2014 Ot V58.69 03/21/2014 AMME GIRARD DO Ot V76.1 2 03/21/2014 Ot 719.45 03/21/2014 Ot 719.45 03/21/2014 BAIMA, HELENE L LABEL SEWER Ot 272.4 03/21/2014 BAIMA, HELENE L LABEL SEWER Ot 272.4 03/21/2014 BAIMA, HELENE L LABEL SEWER Ot 401.9 03/21/2014 BAIMA, HELENE L LABEL SEWER Ot 414.00 03/21/2014 BAIMA, HELENE L LABEL SEWER Ot 416.8 03/21/2014 BAIMA, HELENE L LABEL SEWER Ot 426.3 03/21/2014 BAIMA, HELENE L LABEL SEWER Ot 272.4 03/21/2014 BAIMA, HELENE L LABEL SEWER Ot 401.9 03/21/2014 BAIMA, HELENE L LABEL SEWER Ot 414.00 03/21/2014 HELENE TEJEDA L LABEL SEWER Ot 416.8 03/21/2014 HELENE TEJEDA L LABEL SEWER Ot 426.3 03/21/2014 CARISSA DOANA LAURA M Ot 272. 4 03/21/2014 CARSISA DO, ANA LAURA M Ot 278. 00 [...] DOANA LAURA M Ot 786. 05 03/21/2014 [facility] DOS[facility] A Ot 786.05 03/21/2014 [facility] SHYLA A Ot 786.50 03/21/2014 HELENE TEJEDA LABEL SEWER Ot 272.4 03/21/2014 HELENE TEJEDA LABEL SEWER Ot 414.00 03/21/2014 HELENE TEJEDA LABEL SEWER Ot V58.69 03/21/2014 SHAJI MAME Ot V76.1 2 03/21/2014 [facility] DO, SHYLA A Ot 789.01 03/21/[facility] A Ot 789.01 03/21/2014 [facility] DO, SHYLA A Ot 553.3 03/21/[address] [facility] A Ot 571.8 03/21/2014 [facility] A Ot 789.1 03/21/2014 [...] FACC, ALI FACP CCDS Ot V58.69 04/27/2014 RODRGIO PEDRAZA, SHYLA A Ot 789.01 04/27/2014 RODRIGO [...] CCDS Ot 786.59 04/30/2014 FELIPE CASILLAS FACC, [facility] CCDS Ot V58.69 08/13/2014 Ot 272.4 08/13/2014 [...] 08/13/2014 Ot 719.45 08/13/2014 BAIMA, HELENE L LABEL SEWER Ot 272.4 08/13/2014 BAIMA, HELENE L LABEL SEWER Ot 272.4 08/13/2014 BAIMA, HELENE L LABEL SEWER Ot 401.9 08/13/2014 BAIMA, HELENE L LABEL SEWER Ot 414.00 08/13/2014 BAIMA, HELENE L LABEL SEWER Ot 416.8 08/13/2014 BAIMA, HELENE L LABEL SEWER Ot 426.3 08/13/2014 BAIMA, HELENE L LABEL SEWER Ot 272.4 08/13/2014 BAIMA, HELENE L LABEL SEWER Ot 401.9 08/13/2014 BAIMA, HELENE L LABEL SEWER Ot 414.00 08/13/2014 BAIMA, HELENE L LABEL SEWER Ot 416.8 08/13/2014 BAIMA, HELENE L LABEL SEWER Ot 426.3 08/13/2014 ANA LAURA FERRER DO [...] Oscar Ot 786. 05 08/13/2014 GELLENDER DO, SHYAL A Ot 786.05 08/13/2014 [facility], SHYLA A Ot 786.50 08/13/2014 HELENE TEJEDA LABEL SEWER Ot 272.4 08/13/2014 BAIHELENE LUU L LABEL SEWER Ot 414.00 08/13/2014 BAIHELENE LUU LABEL SEWER Ot V58.69 08/13/2014 GIRARD DOMAME Ot V76.1 2 08/13/2014 [facility] DO, SHYLA A Ot 789.01 08/13/[address] [facility]YLA A Ot 789.01 08/13/[facility]YLA A Ot 553.3 08/13/2014 [facility] DO, SHYLA A Ot 571.8 08/13/2014 [facility] SHYLA A Ot 789.1 08/13/2014 [place] DOREINIER Medina Ot V72. 84 08/13/2014 FELIPE [...] CCDS Ot 424.0 08/13/2014 FELIPE CASILLAS FAC, [facility] FACP CCDS Ot 426.3 08/13/2014 FELIPE CASILLAS FAC, TRISHA FACP CCDS Ot 786.05 08/13/2014 FELIPE CASILLAS [facility] Ot V58.69 09/07/2014 Ot 414.01 09/07/2014 [...] 09/07/2014 Ot 719.45 09/07/2014 BAIMA, HELENE L LABEL SEWER Ot 272.4 09/07/2014 BAIMA, HELENE L LABEL SEWER Ot 272.4 09/07/2014 BAIMA, HELENE L LABEL SEWER Ot 401.9 09/07/2014 BAIMA, HELENE L LABEL SEWER Ot 414.00 09/07/2014 BAIMA, HELENE L LABEL SEWER Ot 416.8 09/07/2014 BAIMA, HELENE L LABEL SEWER Ot 426.3 09/07/2014 BAIMA, HELENE L LABEL SEWER Ot 272.4 09/07/2014 BAIMA, HELENE L LABEL SEWER Ot 401.9 09/07/2014 BAIMA, HELENE L LABEL SEWER Ot 414.00 09/07/2014 BAIMA, HELENE L LABEL SEWER Ot 416.8 09/07/2014 BAIMA, HELENE L LABEL SEWER Ot 426.3 09/07/2014 ANA LAURA FERRER DO [...] SHYLA A Ot 786.50 09/07/2014 HELENE TEJEDA LABEL SEWER Ot 272.4 09/07/2014 HELENE TEJEDA LABEL SEWER Ot 414.00 09/07/2014 HELENE TEJEDA LABEL SEWER Ot V58.69 09/07/2014 MAME GIRARD DO Ot [...] 10/25/2014 Ot 719.45 10/25/2014 BAIMA, HELENE L LABEL SEWER Ot 272.4 10/25/2014 BAIMA, HELENE L LABEL SEWER Ot 272.4 10/25/2014 BAIMA, HELENE L LABEL SEWER Ot 401.9 10/25/2014 BAIMA, HELENE L LABEL SEWER Ot 414.00 10/25/2014 BAIMA, HELENE L LABEL SEWER Ot 416.8 10/25/2014 BAIMA, HELENE L LABEL SEWER Ot 426.3 10/25/2014 BAIMA, HELENE L LABEL SEWER Ot 272.4 10/25/2014 BAIMA, HELENE L LABEL SEWER Ot 401.9 10/25/2014 BAIMA, HELENE L LABEL SEWER Ot 414.00 10/25/2014 BAIMA, HELENE L LABEL SEWER Ot 416.8 10/25/2014 BAIMA, HELENE L LABEL SEWER Ot 426.3 10/25/2014 CARISSA DO, ANA LAURA [...] WALLACE DO Ot 786.50 10/25/2014 BEVERLYHELENE LUU LABEL SEWER Ot 272.4 10/25/2014 HELENE TEJEDA LABEL SEWER Ot 414.00 10/25/2014 HELENE TEJEDA LABEL SEWER Ot V58.69 10/25/2014 MAME GIRARD DO Ot [...] FACP CCDS Ot V58.69 10/25/2014 MOISES SAUL LABEL SEWER Ot V76.1 2 10/31/2014 Ot 414.01 10/31/2014 [...] 10/31/2014 Ot 719.45 10/31/2014 BAIMA, HELENE L LABEL SEWER Ot 272.4 10/31/2014 BAIMA, HELNEE L LABEL SEWER Ot 272.4 10/31/2014 BAIMA, HELENE L LABEL SEWER Ot 401.9 10/31/2014 BAIMA, HELENE L LABEL SEWER Ot 414.00 10/31/2014 BAIMA, HELENE L LABEL SEWER Ot 416.8 10/31/2014 BAIMA, HELENE L LABEL SEWER Ot 426.3 10/31/2014 BAIMA, HELENE L LABEL SEWER Ot 272.4 10/31/2014 BAIMA, HELENE L LABEL SEWER Ot 401.9 10/31/2014 BAIMA, HELENE L LABEL SEWER Ot 414.00 10/31/2014 BAIMA, HELENE L LABEL SEWER Ot 416.8 10/31/2014 BAIMA, HELENE L LABEL SEWER Ot 426.3 10/31/2014 CARISSA DO, ANA LAURA [...] A Ot 786.50 10/31/2014 BAIMA, HELENE L LABEL SEWER Ot 272.4 10/31/2014 BAIMA, HELENE L LABEL SEWER Ot 414.00 10/31/2014 BAIMA, HELENE L LABEL SEWER Ot V58.69 10/31/2014 MAME GIRARD DO Ot V76.1 2 10/31/2014 [facility], SHYLA Lazcano Ot 789.01 10/31/2014 GELLENDER DO, SHYLA Lazcano Ot 789.01 10/31/2014 [facility], SHYLA Lazcano Ot 553.3 10/31/2014 [facility] DO, SHYLA Lazcano Ot 571.8 10/31/2014 [facility] SHYLA Lazcano Ot 789.1 10/31/2014 [place] DOREINIER Ot V72. 84 10/31/2014 FELIPE CASILLAS [...] FACP CCDS Ot V58.69 10/31/2014 MOISES SAUL LABEL SEWER Ot V76.1 2 12/09/2014 CHAITANYA CASILLAS, SCOOTER [...] 04/01/2015 Ot 719.45 04/01/2015 BAIMA, HELENE L LABEL SEWER Ot 272.4 04/01/2015 BAIMA, HELENE L LABEL SEWER Ot 272.4 04/01/2015 BAIMA, HELENE L LABEL SEWER Ot 401.9 04/01/2015 BAIMA, HELENE L LABEL SEWER Ot 414.00 04/01/2015 BAIMA, HELENE L LABEL SEWER Ot 416.8 04/01/2015 BAIMA, HELENE L LABEL SEWER Ot 426.3 04/01/2015 BAIMA, HELENE L LABEL SEWER Ot 272.4 04/01/2015 BAIMA, HELENE L LABEL SEWER Ot 401.9 04/01/2015 BAIMA, HELENE L LABEL SEWER Ot 414.00 04/01/2015 BAIMA, HELENE L LABEL SEWER Ot 416.8 04/01/2015 BAIMA, HELENE L LABEL SEWER Ot 426.3 04/01/2015 ANA LAURA FERRER DO [...] GELLENDER DO, SHYLA Lazcano Ot 786.05 04/01/2015 [facility], SHYLA A Ot 786.50 04/01/2015 [place] HELENE L LABEL SEWER Ot 272.4 04/01/2015 BEVERLYHELENE LUU LABEL SEWER Ot 414.00 04/01/2015 [place] HELENE L LABEL SEWER Ot V58.69 04/01/2015 GIRARD MAME Ot V76.1 2 04/01/2015 [facility] DO, SHYLA A Ot 789.01 04/01/2015 [facility] DO, SHYLA A Ot 789.01 04/01/2015 [facility] DO, SHYLA A Ot 553.3 04/01/2015 [facility] DO, SHYLA A Ot 571.8 04/01/2015 [facility] DO, SHYLA A Ot 789.1 04/01/2015 ADEN [...] FACP CCDS Ot 272.4 04/01/2015 FELIPE CASILLAS [facility], ALI FACP CCDS Ot 397.0 04/01/2015 FELIPE CASILLAS FAC, ALI FACP CCDS Ot 401.9 04/01/2015 FELIPE CASILLAS [facility], ALI FACP CCDS Ot 416.8 04/01/2015 FELIPE CASILLAS [facility], ALI FACP CCDS Ot 424.0 04/01/2015 FELIPE CASILLAS [facility], ALI FACP CCDS Ot 426.3 04/01/2015 FELIPE CASILLAS [facility], ALI FACP CCDS Ot 786.05 04/01/2015 FELIPE CASILLAS [facility], ALI FACP CCDS Ot V58.69 04/01/2015 DORYS [...] PRE -PROCEDURAL LABORATORY EXAMINATION 01/07/2016 Ot V72.81 [id number] CARDIOVASCULAR 01/07/2016 Ot V58.61 ANTICOAGULANTS,LT,CURRENT USE 01/07/2016 [...] LAURA NT PAIN-PELVIS 01/07/2016 HELENE TEJEDA L LABEL SEWER Ot 272.4 HYPERLIPIDEMIA NEC/NOS 01/07/2016 BAILUTHER LUUHER L LABEL SEWER Ot 272.4 HYPERLIPIDEMIA NEC/NOS 01/07/2016 BAIMA, HELENE L LABEL SEWER Ot 401.9 HYPERTENSION NOS 01/07/2016 BAIMA, HELENE L LABEL SEWER Ot 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 NOS TYPE VESSEL, NATIV 01/07/2016 BAIMA, HELENE L LABEL SEWER Ot 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 NEC 01/07/2016 BAIMA, HELENE L LABEL SEWER Ot 426.3 LEFT BB BLOCK NEC 01/07/2016 BAIMA, HELENE L LABEL SEWER Ot 272.4 HYPERLIPIDEMIA NEC/NOS 01/07/2016 BAIMA, HELENE L LABEL SEWER Ot 401.9 HYPERTENSION NOS 01/07/2016 BAIMA, HELENE L LABEL SEWER Ot 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 NOS TYPE VESSEL, NATIV 01/07/2016 BAIMA, HELENE L LABEL SEWER Ot 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 NEC 01/07/2016 BAIMA, HELENE L LABEL SEWER Ot 426.3 LEFT BB BLOCK NEC 01/07/2016 ANA LAURA FERRER DO Ot 272. 4 HYPERLIPIDEMIA NEC/NOS 01/07/2016 ANA LAURA FERRER DO Ot 278. 00 OBESITY, NOS 01/07/2016 ANA LAURA FERRER DO Ot 401. 9 HYPERTENSION NOS 01/07/2016 ANA LUARA FERRER DO Ot 414. 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 [...] CHEST PAIN NOS 01/07/2016 BAIMA, HELENE L LABEL SEWER Ot 272.4 HYPERLIPIDEMIA NEC/NOS 01/07/2016 BAIMA, HELENE L LABEL SEWER Ot 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 NOS TYPE VESSEL, NATIV 01/07/2016 BAIMA, HELENE L LABEL SEWER Ot V58.69 OT MED,LT,CURRENT USE 01/07/2016 MAME GIRARD DO Ot V76.1 2 OTH SCREEN MAMMO-MALIGN NEOPLASM OF [place] 01/07/2016 SHYLA WALLACE DO Ot 789.01 ABDOMINAL PAIN, RIGHT UPPER QUADRANT 01/07/2016 SHYLA WALLACE DO Ot 789.01 ABDOMINAL PAIN, RIGHT UPPER QUADRANT 01/07/2016 SHYLA WALLACE DO Ot 553.3 DIAPHRAGMATIC HERNIA 01/07/[address] [facility] MONTOYA DO Ot 571.8 CHRONIC LIVER DIS NEC 01/07/2016 SHYLA WALLACE DO Ot 789.1 HEPATOMEGALY 01/07/2016 REINIER ADEN DO Ot V72. 84 EXAM PRE-OPERATIVE NOS 01/07/2016 FEILPE CASILLAS FACC, ALI FACP CCDS Ot 272.4 [...] OF BREATH 01/07/2016 FELIPE CASILLAS FAC, TRISHA [facility] CCD[facility] Ot V58.69 OTH MED,LT,CURRENT USE 01/07/2016 MOISES SAUL LABEL SEWER Ot V76.1 2 OTH SCREEN MAMMO-MALIGN NEOPLASM [...] DO Ot R06.02 SHORTNESS OF BREATH 01/08/2016 [facility] Ot R53.83 OTHER FATIGUE 01/08/2016 BALDEV DO, GILLIAN K Ot I10 ESSENTIAL (PRIMARY) HYPERTENSION 01/08/2016 BALDEV DO, GILLIAN K Ot R07.89 OTHER CHEST PAIN 01/08/2016 BALDEV DO, GILLIAN K Ot R53.83 OTHER FATIGUE 01/08/2016 BALDEV DO GILLIAN K Ot Z79.82 INTERMEDIATE (CURRENT) USE OF ASPIRIN 01/08/2016 BALDEV DO GILLIAN K Ot Z79.899 OTHER MOLD SWABBER (CURRENT) DRUG THERAPY 01/09/2016 BALDEV DO, GILLIAN K Ot I10 ESSENTIAL (PRIMARY) HYPERTENSION 01/09/2016 BALDEV DO, GILLIAN K Ot R07.89 OTHER CHEST PAIN 01/09/2016 BALDEV DO, GILLIAN K Ot R53.83 OTHER FATIGUE 01/09/2016 BALDEV DO, GILLIAN K Ot Z79.82 MOLD SWABBER (CURRENT) USE OF ASPIRIN 01/09/2016 BALDEV DO, GILLIAN K Ot Z79.899 OTHER MOLD SWABBER (CURRENT) DRUG THERAPY 01/14/2016 Ot V76.12 OTH SCREEN MAMMO- MALIGN NEOPLASM OF [place] 01/14/2016 Ot 429.3 CARD IOMEGALY 01/14/2016 Ot 715.36 LOC OSTEOARTH NOS-L/LEG 01/14/2016 Ot 791.9 ABN URINE FINDINGS NEC 01/14/2016 Ot V57.1 PHYS ICAL THERAPY NEC 01/14/2016 Ot V57.21 ENC OUNTER FOR OCCUPATIONAL THERAPY 01/14/2016 Ot V58.69 OTH MED,LT,CURRENT USE 01/14/2016 Ot V72.63 PRE -PROCEDURAL LABORATORY EXAMINATION 01/14/2016 Ot V72.81 [id number] CARDIOVASCULAR 01/14/2016 Ot V58.61 ANTICOAGULANTS,LT,CURRENT USE 01/14/2016 [...] LAURA NT PAIN-PELVIS 01/14/2016 BAIMA, HELENE L LABEL SEWER Ot 272.4 HYPERLIPIDEMIA NEC/NOS 01/14/2016 BAIMA, HELENE L LABEL SEWER Ot 272.4 HYPERLIPIDEMIA NEC/NOS 01/14/2016 BAIMA, HELENE L LABEL SEWER Ot 401.9 HYPERTENSION NOS 01/14/2016 BAIMA, HELENE L LABEL SEWER Ot 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 NOS TYPE VESSEL, NATIV 01/14/2016 BAIMA, HELENE L LABEL SEWER Ot 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 NEC 01/14/2016 BAIMA, HELENE L LABEL SEWER Ot 426.3 LEFT BB BLOCK NEC 01/14/2016 BAIMA, HELENE L LABEL SEWER Ot 272.4 HYPERLIPIDEMIA NEC/NOS 01/14/2016 BAIMA, HELENE L LABEL SEWER Ot 401.9 HYPERTENSION NOS 01/14/2016 BAIMA, HELENE L LABEL SEWER Ot 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 NOS TYPE VESSEL, NATIV 01/14/2016 BAIMA, HELENE L LABEL SEWER Ot 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 NEC 01/14/2016 BAIMA, HELENE L LABEL SEWER Ot 426.3 LEFT BB BLOCK NEC 01/14/2016 [...] A Ot 786.05 SHORTNESS OF BREATH 01/14/2016 SHYLA WALLACE DO Ot 786.50 CHEST PAIN NOS 01/14/2016 BEVERLYHELENE LUU Tab LABEL SEWER Ot 272.4 HYPERLIPIDEMIA NEC/NOS 01/14/2016 HELENE TEJEDA LABEL SEWER Ot 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 NOS TYPE VESSEL, NATIV 01/14/2016 HELENE TEJEDA LABEL SEWER Ot V58.69 OTH MED,LT,CURRENT USE 01/14/2016 MAME [...] CCDS Ot 272.4 HYPERLIPIDEMIA NEC/NOS 01/14/2016 FELIPE CAISLLAS FACC, ALI FACP CCDS Ot 397.0 TRICUSPID [...] PRE -PROCEDURAL LABORATORY EXAMINATION 01/15/2016 Ot V72.81 [id number] CARDIOVASCULAR 01/15/2016 Ot V58.61 ANTICOAGULANTS,LT,CURRENT USE 01/15/2016 [...] LAURA NT PAIN-PELVIS 01/15/2016 BAIMA, HELENE L LABEL SEWER Ot 272.4 HYPERLIPIDEMIA NEC/NOS 01/15/2016 BAIMA, HELENE L LABEL SEWER Ot 272.4 HYPERLIPIDEMIA NEC/NOS 01/15/2016 BAIMA, HELENE L LABEL SEWER Ot 401.9 HYPERTENSION NOS 01/15/2016 BAIMA, HELENE L LABEL SEWER Ot 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 NOS TYPE VESSEL, NATIV 01/15/2016 BAIMA, HELENE L LABEL SEWER Ot 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 NEC 01/15/2016 BAIMA, HELENE L LABEL SEWER Ot 426.3 LEFT BB BLOCK NEC 01/15/2016 BAIMA, HELENE L LABEL SEWER Ot 272.4 HYPERLIPIDEMIA NEC/NOS 01/15/2016 BAIMA, HELENE L LABEL SEWER Ot 401.9 HYPERTENSION NOS 01/15/2016 BAIMA, HELENE L LABEL SEWER Ot 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 NOS TYPE VESSEL, NATIV 01/15/2016 BAIMA, HELENE L LABEL SEWER Ot 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 NEC 01/15/2016 BAIMA, HELENE L LABEL SEWER Ot 426.3 LEFT BB BLOCK NEC 01/15/2016 [...] CHEST PAIN NOS 01/15/2016 NIKHIL, HELENE L LABEL SEWER Ot 272.4 HYPERLIPIDEMIA NEC/NOS 01/15/2016 BAIMA, HELENE L LABEL SEWER Ot 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 NOS TYPE VESSEL, NATIV 01/15/2016 BAIMA, HELENE L LABEL SEWER Ot V58.69 OTH MED,LT,CURRENT USE 01/15/2016 MAME [...] V58.69 OTH MED,LT,CURRENT USE 01/15/2016 MOISES SAUL LABEL SEWER Ot V76.1 2 OTH SCREEN MAMMO-MALIGN NEOPLASM OF [place] 01/15/2016 CHANELLE CASILLAS, KIM Ruff Ot 715. 31 LOC OSTEOARTH NOS-SHLDER 01/15/2016 HCANELLE CASILLAS, KIM Ruff Ot 721. 0 CERVICAL [...] R53.83 OTHER FATIGUE 01/20/2016 BAIMA, HELENE L LABEL SEWER Ot E78.4 OTHER HYPERLIPIDEMIA 01/20/2016 BAIMA, HELENE L LABEL SEWER Ot I 10 ESSENTIAL (PRIMARY) HYPERTENSION 01/20/2016 BAIMA, HELENE L LABEL SEWER Ot I25.10 ATHSCL HEART DISEASE OF [place] CORONARY 01/20/2016 BAIMA, HELENE L LABEL SEWER Ot I44.7 LEFT BUNDLE-BRANCH BLOCK, UNSPECIFIED 01/20/2016 BAIMA, HELENE L LABEL SEWER Ot R06.09 OTHER FORMS OF DYSPNEA 01/20/2016 BAIMA, HELENE L LABEL SEWER Ot R53.83 OTHER FATIGUE 01/24/2016 BAIMA, HELENE L LABEL SEWER Ot E78.5 HYPERLIPIDEMIA, UNSPECIFIED 01/24/2016 BAIMA, HELENE L LABEL SEWER Ot I 10 ESSENTIAL (PRIMARY) HYPERTENSION 01/24/2016 BAIMA, HELENE L LABEL SEWER Ot I25.10 ATHSCL HEART DISEASE OF [place] CORONARY 01/24/2016 BAIMA, HELENE L LABEL SEWER Ot J84.10 PULMONARY FIBROSIS, UNSPECIFIED 01/24/2016 BAIMA, HELENE L LABEL SEWER Ot R06.00 DYSPNEA, UNSPECIFIED 01/24/2016 BAIMA, HELENE L LABEL SEWER Ot R53.83 OTHER FATIGUE 01/24/2016 BAIMA, HELENE L LABEL SEWER Ot E78.4 OTHER HYPERLIPIDEMIA 01/24/2016 BAIMA, HELENE L LABEL SEWER Ot I 10 ESSENTIAL (PRIMARY) HYPERTENSION 01/24/2016 BAIMA, HELENE L LABEL SEWER Ot I25.10 ATHSCL HEART DISEASE OF [place] CORONARY 01/24/2016 BAIMA, HELENE L LABEL SEWER Ot I44.7 LEFT BUNDLE-BRANCH BLOCK, UNSPECIFIED 01/24/2016 BAIMA, HELENE L LABEL SEWER Ot R06.09 OTHER FORMS OF DYSPNEA 01/24/2016 BAIMA, HELENE L LABEL SEWER Ot R53.83 OTHER FATIGUE 01/24/2016 BAIMA, HELENE L LABEL SEWER Ot E78.4 OTHER HYPERLIPIDEMIA 01/24/2016 BAIMA, HELENE L LABEL SEWER Ot I 10 ESSENTIAL (PRIMARY) HYPERTENSION 01/24/2016 BAIMA, HELENE L LABEL SEWER Ot I25.10 ATHSCL HEART DISEASE OF [place] CORONARY 01/24/2016 BAIMA, HELENE L LABEL SEWER Ot I44.7 LEFT BUNDLE-BRANCH BLOCK, UNSPECIFIED 01/24/2016 BAIMA, HELENE L LABEL SEWER Ot R06.09 OTHER FORMS OF DYSPNEA 01/24/2016 BAIMA, HELENE L LABEL SEWER Ot R53.83 OTHER FATIGUE 01/30/2016 GELLENDER DO, [...] BALDEV PEDRAZA GILLIAN K Ot Z79.899 OTHER MOLD SWABBER (CURRENT) DRUG THERAPY 02/01/2016 BALDEV DO GILLIAN K Ot I10 ESSENTIAL (PRIMARY) HYPERTENSION 02/01/2016 BALDEV DO GILLIAN K Ot R07.89 OTHER CHEST PAIN 02/01/2016 BALDEV DO GILLIAN K Ot R53.83 OTHER FATIGUE 02/01/2016 GILLIAN DE PAZ DO Ot Z79.82 INTERMEDIATE (CURRENT) USE OF ASPIRIN 02/01/2016 GILLIAN DE PAZ DO Ot Z79.899 OTHER MOLD SWABBER (CURRENT) DRUG THERAPY 02/05/2016 SHYLA WALLACE DO Ot R06.02 SHORTNESS OF BREATH 02/05/2016 SHYLA WALLACE DO Ot R53.83 OTHER FATIGUE 02/07/2016 BAIMA, HELENE L LABEL SEWER Ot E78.4 OTHER HYPERLIPIDEMIA 02/07/2016 BAIMA, HELENE L LABEL SEWER Ot I 10 ESSENTIAL (PRIMARY) HYPERTENSION 02/07/2016 BAIMA, HELENE L LABEL SEWER Ot I25.10 ATHSCL HEART DISEASE OF [place] CORONARY 02/07/2016 BAIMA, HELENE L LABEL SEWER Ot I44.7 LEFT BUNDLE-BRANCH BLOCK, UNSPECIFIED 02/07/2016 BAIMA, HELENE L LABEL SEWER Ot R06.09 OTHER FORMS OF DYSPNEA 02/07/2016 BAIMA, HELENE L LABEL SEWER Ot R53.83 OTHER FATIGUE 02/12/2016 BAIMA, HELENE L LABEL SEWER Ot E78.5 HYPERLIPIDEMIA, UNSPECIFIED 02/12/2016 BAIMA, HELENE L LABEL SEWER Ot I 10 ESSENTIAL (PRIMARY) HYPERTENSION 02/12/2016 BAIMA, HELENE L LABEL SEWER Ot I25.10 ATHSCL HEART DISEASE OF [place] CORONARY 02/12/2016 BAIMA, HELENE L LABEL SEWER Ot J84.10 PULMONARY FIBROSIS, UNSPECIFIED 02/12/2016 BAIMA, HELENE L LABEL SEWER Ot R06.00 DYSPNEA, UNSPECIFIED 02/12/2016 BAIMA, HELENE L LABEL SEWER Ot R53.83 OTHER FATIGUE 02/13/2016 BAIMA, HELENE L LABEL SEWER Ot E78.4 OTHER HYPERLIPIDEMIA 02/13/2016 BAIMA, HELENE L LABEL SEWER Ot I 10 ESSENTIAL (PRIMARY) HYPERTENSION 02/13/2016 BAIMA, HELENE L LABEL SEWER Ot I25.10 ATHSCL HEART DISEASE OF [place] CORONARY 02/13/2016 BAIMA, HELENE L LABEL SEWER Ot I44.7 LEFT BUNDLE-BRANCH BLOCK, UNSPECIFIED 02/13/2016 BAIMA, HELENE L LABEL SEWER Ot R06.09 OTHER FORMS OF DYSPNEA 02/13/2016 BAIMA, HELENE L LABEL SEWER Ot R53.83 OTHER FATIGUE 02/25/2016 GELLENDER DO, SHYLA A Ot R06.02 SHORTNESS OF BREATH 02/25/2016 GELLENDER DO, SHYLA A Ot R53.83 OTHER FATIGUE 02/25/2016 GELLENDER DO, SHYLA A Ot R06.02 SHORTNESS OF BREATH 02/25/2016 GELLENDER DO, SHYLA A Ot R53.83 OTHER FATIGUE 02/25/2016 BAIMA, HELENE L LABEL SEWER Ot E78.5 HYPERLIPIDEMIA, UNSPECIFIED 02/25/2016 BAIMA, HELENE L LABEL SEWER Ot I 10 ESSENTIAL (PRIMARY) HYPERTENSION 02/25/2016 BAIMA, HELENE L LABEL SEWER Ot I25.10 ATHSCL HEART DISEASE OF [place] CORONARY 02/25/2016 BAIMA, HELENE L LABEL SEWER Ot J84.10 PULMONARY FIBROSIS, UNSPECIFIED 02/25/2016 BAIMA, HELENE L LABEL SEWER Ot R06.00 DYSPNEA, UNSPECIFIED 02/25/2016 BAIMA, HELENE L LABEL SEWER Ot R53.83 OTHER FATIGUE 02/25/2016 BAIMA, HELENE L LABEL SEWER Ot E78.4 OTHER HYPERLIPIDEMIA 02/25/2016 BAIMA, HELENE L LABEL SEWER Ot I 10 ESSENTIAL (PRIMARY) HYPERTENSION 02/25/2016 BAIMA, HELENE L LABEL SEWER Ot I25.10 ATHSCL HEART DISEASE OF [place] CORONARY 02/25/2016 BAIMA, HELENE L LABEL SEWER Ot I44.7 LEFT BUNDLE-BRANCH BLOCK, UNSPECIFIED 02/25/2016 BAIMA, HELENE L LABEL SEWER Ot R06.09 OTHER FORMS OF DYSPNEA 02/25/2016 BAIMA, HELENE L LABEL SEWER Ot R53.83 OTHER FATIGUE 03/17/2016 FELIPE CASILLAS FACC, ALI FACP CCDS Ot I25.10 ATHSCL HEART DISEASE OF [place] CORONARY 03/17/2016 FELIPE CASILLAS FACC, ALI FACP CCDS Ot J43.8 OTHER EMPHYSEMA 03/17/2016 FELIPE CASILLAS FACC, ALI FACP CCDS Ot 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 03/17/2016 FELIPE CASILLAS FACC, ALI FACP CCDS Ot R06.02 SHORTNESS OF BREATH 03/17/2016 FELIPE CASILLAS FACC, ALI FACP CCDS Ot R53.83 OTHER FATIGUE 06/10/2016 Ot 599.0 URIN TRACT INFECTION NOS 08/12/2016 BAIMA, HELENE L LABEL SEWER Ot 272.4 HYPERLIPIDEMIA NEC/NOS 08/12/2016 BEVERLYHELENE LUU L LABEL SEWER Ot 401.9 HYPERTENSION NOS 08/12/2016 BEVERLYHELENE LUU L LABEL SEWER Ot 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 NOS TYPE VESSEL, NATIV 08/12/2016 HELENE TEJEDA L LABEL SEWER Ot 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 NEC 08/12/2016 NIKHILHELENE LABEL SEWER Ot 426.3 LEFT BB BLOCK NEC 08/26/2016 [...] LAURA NT PAIN-PELVIS 09/09/2016 NIKHIL HELENE L LABEL SEWER Ot 272.4 HYPERLIPIDEMIA NEC/NOS 09/09/2016 BAIMA, HELENE L LABEL SEWER Ot 272.4 HYPERLIPIDEMIA NEC/NOS 09/09/2016 BAIMA, HELENE L LABEL SEWER Ot 401.9 HYPERTENSION NOS 09/09/2016 BAIMA, HELENE L LABEL SEWER Ot 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 NOS TYPE VESSEL, NATIV 09/09/2016 BAIMA, HELENE L LABEL SEWER Ot 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 NEC 09/09/2016 BAIMA, HELENE L LABEL SEWER Ot 426.3 LEFT BB BLOCK NEC 09/09/2016 BAIMA, HELENE L LABEL SEWER Ot 272.4 HYPERLIPIDEMIA NEC/NOS 09/09/2016 BAIMA, HELENE L LABEL SEWER Ot 401.9 HYPERTENSION NOS 09/09/2016 BAIMA, HELENE L LABEL SEWER Ot 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 NOS TYPE VESSEL, NATIV 09/09/2016 BAIMA, HELENE L LABEL SEWER Ot 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 NEC 09/09/2016 BAIMA, HELENE L LABEL SEWER Ot 426.3 LEFT BB BLOCK NEC 09/09/2016 [...] CHEST PAIN NOS 09/09/2016 BAIMA, HELENE L LABEL SEWER Ot 272.4 HYPERLIPIDEMIA NEC/NOS 09/09/2016 BAIMA, HELENE L LABEL SEWER Ot 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 NOS TYPE VESSEL, NATIV 09/09/2016 HELENE TEJEDA LABEL SEWER Ot V58.69 OTH MED,LT,CURRENT USE 09/09/2016 MAME GIRARD DO Ot V76.1 2 OTH SCREEN MAMMO-MALIGN NEOPLASM OF [place] 09/09/2016 SHYLA AWLLACE DO Ot 789.01 ABDOMINAL PAIN, RIGHT UPPER [...] V58.69 OTH MED,LT,CURRENT USE 09/09/2016 MOISES SAUL LABEL SEWER Ot V76.1 2 OTH SCREEN MAMMO-MALIGN NEOPLASM OF [place] 09/09/2016 KIM ROCA MD Ot 715. 31 [...] R53.83 OTHER FATIGUE 09/09/2016 BAIMA HELENE L LABEL SEWER Ot E78.5 HYPERLIPIDEMIA, UNSPECIFIED 09/09/2016 BAIMA, HELENE L LABEL SEWER Ot I 10 ESSENTIAL (PRIMARY) HYPERTENSION 09/09/2016 BAIMA HELENE L LABEL SEWER Ot I25.10 ATHSCL HEART DISEASE OF [place] CORONARY 09/09/2016 NIKHIL HELENE L LABEL SEWER Ot J84.10 PULMONARY FIBROSIS, UNSPECIFIED 09/09/2016 BAIMA HELENE L LABEL SEWER Ot R06.00 DYSPNEA, UNSPECIFIED 09/09/2016 BAIMA HELENE L LABEL SEWER Ot R53.83 OTHER FATIGUE 09/09/2016 BAIMA HELENE L LABEL SEWER Ot E78.4 OTHER HYPERLIPIDEMIA 09/09/2016 BAIMA, HELENE L LABEL SEWER Ot I 10 ESSENTIAL (PRIMARY) HYPERTENSION 09/09/2016 BAIMA, HELENE L LABEL SEWER Ot I25.10 ATHSCL HEART DISEASE OF [place] CORONARY 09/09/2016 BAIMA, HELENE L LABEL SEWER Ot I44.7 LEFT BUNDLE-BRANCH BLOCK, UNSPECIFIED 09/09/2016 BAIMA, HELENE L LABEL SEWER Ot R06.09 OTHER FORMS OF DYSPNEA 09/09/2016 BAIMA, HELENE L LABEL SEWER Ot R53.83 OTHER FATIGUE 09/09/2016 BAIMA, HELENE L LABEL SEWER Ot E78.4 OTHER HYPERLIPIDEMIA 09/09/2016 BAIMA, HELENE L LABEL SEWER Ot I 10 ESSENTIAL (PRIMARY) HYPERTENSION 09/09/2016 BAIMA, HELENE L LABEL SEWER Ot I25.10 ATHSCL HEART DISEASE OF [place] CORONARY 09/09/2016 BAIMA, HELENE L LABEL SEWER Ot I44.7 LEFT BUNDLE-BRANCH BLOCK, UNSPECIFIED 09/09/2016 BAIMA, HELENE L LABEL SEWER Ot R06.09 OTHER FORMS OF DYSPNEA 09/09/2016 BAIMA, HELENE L LABEL SEWER Ot R53.83 OTHER FATIGUE 09/09/2016 FELIPE CASILLAS FAC, ALI FACP CCDS Ot I25.10 ATHSCL HEART DISEASE OF [place] CORONARY 09/09/2016 FELIPE CASILLAS FACC, ALI FACP [...] MAMMOGRAM FOR MALIGNANT NE 10/29/2016 VAN JONES MANUFACTURING ENGINEERING MANAGER Ot J44.9 CHRONIC OBSTRUCTIVE PULMONARY DISEASE, U 10/29/2016 VAN JONES MANUFACTURING ENGINEERING MANAGER Ot J45.909 UNSPECIFIED ASTHMA, UNCOMPLICATED 10/29/2016 VAN JONES MANUFACTURING ENGINEERING MANAGER Ot 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 10/29/2016 VAN JONES MANUFACTURING ENGINEERING MANAGER Ot R91.8 OTHER NONSPECIFIC ABNORMAL FINDING OF [place] 11/17/2016 FELIPE CASILLAS FACC, TRISHA FACP CCDS Ot E78.1 PURE HYPERGLYCERIDEMIA 11/17/2016 FELIPE CASILLAS FACC, TRISHA FACP CCDS Ot F32.9 MAJOR DEPRESSIVE DISORDER, SINGLE EPISOD 11/17/2016 FELIPE CASILLAS FACC, ALI FACP CCDS Ot I25.10 ATHSCL HEART DISEASE OF [place] CORONARY 11/17/2016 FELIPE CASILLAS FACC, ALI FACP CCDS Ot I44.7 LEFT BUNDLE-BRANCH BLOCK, UNSPECIFIED 11/17/2016 FELIPE CASILLAS FACC, ALI FACP CCDS Ot I47.1 SUPRAVENTRICULAR TACHYCARDIA 11/17/2016 FELIPE CASILLAS FACC, ALI FACP CCDS Ot J45.909 UNSPECIFIED ASTHMA, UNCOMPLICATED 11/17/2016 FELIPE CASILLAS FACC, ALI FACP CCDS Ot R06.02 SHORTNESS OF BREATH 11/17/2016 FELIPE CASILLAS FACC, ALI FACP CCDS Ot Z79.899 OTHER MOLD SWABBER (CURRENT) DRUG THERAPY 11/24/2016 FELIPE CASILLAS FACC, ALI FACP CCDS Ot E78.1 PURE HYPERGLYCERIDEMIA 11/24/2016 FELIPE CASILLAS FACC, ALI FACP CCDS Ot F32.9 MAJOR DEPRESSIVE DISORDER, SINGLE EPISOD 11/24/2016 FELIPE CASILLAS FACC, TRISHA FACP CCDS Ot I25.10 ATHSCL HEART DISEASE OF [place] CORONARY 11/24/2016 FELIPE CASILLAS FACC, ALI FACP [...] INTERMEDIATE (CURRENT) DRUG THERAPY 12/01/2016 VAN JONES MANUFACTURING ENGINEERING MANAGER Ot I27.2 OTHER SECONDARY PULMONARY HYPERTENSION 12/01/2016 VAN JONES MANUFACTURING ENGINEERING MANAGER Ot J44.9 CHRONIC OBSTRUCTIVE PULMONARY DISEASE, U 12/01/2016 VANDA JONESINE Verónica MANUFACTURING ENGINEERING MANAGER Ot J45.909 UNSPECIFIED ASTHMA, UNCOMPLICATED 12/01/2016 VANDA JONESINE E MANUFACTURING ENGINEERING MANAGER Ot R06.02 SHORTNESS OF BREATH 12/25/2016 VANDA JONESINE Verónica MANUFACTURING ENGINEERING MANAGER Ot J44.9 CHRONIC OBSTRUCTIVE PULMONARY DISEASE, U 12/25/2016 VANDA JONESINE E MANUFACTURING ENGINEERING MANAGER Ot J45.909 UNSPECIFIED ASTHMA, UNCOMPLICATED 12/25/2016 VANDA JONESINE E MANUFACTURING ENGINEERING MANAGER Ot 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 12/25/2016 VANDA JONESINE E MANUFACTURING ENGINEERING MANAGER Ot R91.8 OTHER NONSPECIFIC ABNORMAL FINDING OF [place] 01/01/2017 VANDA JONESINE Verónica MANUFACTURING ENGINEERING MANAGER Ot I27.2 OTHER SECONDARY PULMONARY HYPERTENSION 01/01/2017 VAN JONES MANUFACTURING ENGINEERING MANAGER Ot J44.9 CHRONIC OBSTRUCTIVE PULMONARY DISEASE, U 01/01/2017 VANDA JONESINE Verónica MANUFACTURING ENGINEERING MANAGER Ot J45.909 UNSPECIFIED ASTHMA, UNCOMPLICATED 01/01/2017 VANDA JONESINE Verónica MANUFACTURING ENGINEERING MANAGER Ot R06.02 SHORTNESS OF BREATH 01/09/2017 VANDA JONESINE Verónica MANUFACTURING ENGINEERING MANAGER Ot I27.2 OTHER SECONDARY PULMONARY HYPERTENSION 01/09/2017 VANDA JONESINE Verónica MANUFACTURING ENGINEERING MANAGER Ot J44.9 CHRONIC OBSTRUCTIVE PULMONARY DISEASE, U 01/09/2017 VANDA JONESINE E MANUFACTURING ENGINEERING MANAGER Ot J45.909 UNSPECIFIED ASTHMA, UNCOMPLICATED 01/09/2017 KAREN, VAN E MANUFACTURING ENGINEERING MANAGER Ot R06.02 SHORTNESS OF BREATH 01/12/2017 KAREN, VAN E MANUFACTURING ENGINEERING MANAGER Ot I27.2 OTHER SECONDARY PULMONARY HYPERTENSION * 01/12/2017 KAREN, VAN E MANUFACTURING ENGINEERING MANAGER Ot J44.9 CHRONIC OBSTRUCTIVE PULMONARY DISEASE, U 01/12/2017 KAREN, VAN E MANUFACTURING ENGINEERING MANAGER Ot J45.909 UNSPECIFIED ASTHMA, UNCOMPLICATED 01/12/2017 KAREN, VAN E MANUFACTURING ENGINEERING MANAGER Ot R06.02 SHORTNESS OF BREATH 01/13/2017 KAREN, VAN E MANUFACTURING ENGINEERING MANAGER Ot I27.20 PULMONARY HYPERTENSION, UNSPECIFIED 01/13/2017 KAREN, VAN E MANUFACTURING ENGINEERING MANAGER Ot J44.9 CHRONIC OBSTRUCTIVE PULMONARY DISEASE, U 01/13/2017 KAREN, VAN E MANUFACTURING ENGINEERING MANAGER Ot J45.909 UNSPECIFIED ASTHMA, UNCOMPLICATED 01/13/2017 KAREN, VAN E MANUFACTURING ENGINEERING MANAGER Ot R06.02 SHORTNESS OF BREATH 01/15/2017 KAREN, VAN E MANUFACTURING ENGINEERING MANAGER Ot I27.2 OTHER SECONDARY PULMONARY HYPERTENSION 01/15/2017 KAREN, VAN E MANUFACTURING ENGINEERING MANAGER Ot J44.9 CHRONIC OBSTRUCTIVE PULMONARY DISEASE, U 01/15/2017 KAREN, VAN E MANUFACTURING ENGINEERING MANAGER Ot J45.909 UNSPECIFIED ASTHMA, UNCOMPLICATED 01/15/2017 KAREN, VAN E MANUFACTURING ENGINEERING MANAGER Ot R06.02 SHORTNESS OF BREATH 01/15/2017 KAREN, VAN E MANUFACTURING ENGINEERING MANAGER Ot I27.20 PULMONARY HYPERTENSION, UNSPECIFIED 01/15/2017 KAREN, VAN E MANUFACTURING ENGINEERING MANAGER Ot J44.9 CHRONIC OBSTRUCTIVE PULMONARY DISEASE, U 01/15/2017 KAREN, VAN E MANUFACTURING ENGINEERING MANAGER Ot J45.909 UNSPECIFIED ASTHMA, UNCOMPLICATED 01/15/2017 KAREN, VAN E MANUFACTURING ENGINEERING MANAGER Ot R06.02 SHORTNESS OF BREATH 03/05/2017 KAREN, VAN E MANUFACTURING ENGINEERING MANAGER Ot I27.20 PULMONARY HYPERTENSION, UNSPECIFIED 03/05/2017 KAREN, VAN E MANUFACTURING ENGINEERING MANAGER Ot J44.9 CHRONIC OBSTRUCTIVE PULMONARY DISEASE, U 03/05/2017 KAREN, VAN E MANUFACTURING ENGINEERING MANAGER Ot J45.909 UNSPECIFIED ASTHMA, UNCOMPLICATED 03/05/2017 KAREN, VAN E MANUFACTURING ENGINEERING MANAGER Ot R06.02 SHORTNESS OF BREATH 03/13/2017 Ot 272.4 HYPE RLIPIDEMIA NEC/NOS 03/13/2017 Ot 401.9 HYPE RTENSION NOS 03/13/2017 Ot 414.00 COR ON ATHEROSCLER NOS TYPE VESSEL, NATIV 03/13/2017 Ot V58.69 OTH MED,LT,CURRENT USE 03/13/2017 MAME GIRARD DO Ot V76.1 2 OTH SCREEN MAMMO-MALIGN NEOPLASM OF [place] 03/13/2017 Ot 719.45 LAURA NT PAIN-PELVIS 03/13/2017 Ot 719.45 LAURA NT PAIN-PELVIS 03/13/2017 BAIMA, HELENE L LABEL SEWER Ot 272.4 HYPERLIPIDEMIA NEC/NOS 03/13/2017 BAIMA, HELENE L LABEL SEWER Ot 272.4 HYPERLIPIDEMIA NEC/NOS 03/13/2017 BAIMA, HELENE L LABEL SEWER Ot 401.9 HYPERTENSION NOS 03/13/2017 BAIMA, HELENE L LABEL SEWER Ot 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 NOS TYPE VESSEL, NATIV 03/13/2017 BAIMA, HELENE L LABEL SEWER Ot 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 NEC 03/13/2017 BAIMA, HELENE L LABEL SEWER Ot 426.3 LEFT BB BLOCK NEC 03/13/2017 BAIMA, HELENE L LABEL SEWER Ot 272.4 HYPERLIPIDEMIA NEC/NOS 03/13/2017 BAIMA, HELENE L LABEL SEWER Ot 401.9 HYPERTENSION NOS 03/13/2017 BAIMA, HELENE L LABEL SEWER Ot 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 NOS TYPE VESSEL, NATIV 03/13/2017 BAIMA, HELENE L LABEL SEWER Ot 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 NEC 03/13/2017 BAIBELL, HELENE L LABEL SEWER Ot 426.3 LEFT BB BLOCK NEC 03/13/2017 [...] 786.50 CHEST PAIN NOS 03/13/2017 HELENE TEJEDA LABEL SEWER Ot 272.4 HYPERLIPIDEMIA NEC/NOS 03/13/2017 HELENE TEJEDA LABEL SEWER Ot 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 NOS TYPE VESSEL, NATIV 03/13/2017 NIKHIL HELENE L LABEL SEWER Ot V58.69 OTH MED,LT,CURRENT USE 03/13/2017 MAME GIRARD DO Ot V76.1 2 OTH SCREEN MAMMO-MALIGN NEOPLASM OF [place] 03/13/2017 SHYLA WALLACE DO Ot 789.01 ABDOMINAL PAIN, RIGHT UPPER QUADRANT 03/13/2017 SHYLA WALALCE DO Ot 789.01 ABDOMINAL PAIN, RIGHT UPPER [...] V58.69 OTH MED,LT,CURRENT USE 03/13/2017 MOISES SAUL LABEL SEWER Ot V76.1 2 OTH SCREEN MAMMO-MALIGN NEOPLASM [...] Ot R53.83 OTHER FATIGUE 03/13/2017 HELENE TEJEDA LABEL SEWER Ot E78.5 HYPERLIPIDEMIA, UNSPECIFIED 03/13/2017 BAIMA, HELENE L LABEL SEWER Ot I 10 ESSENTIAL (PRIMARY) HYPERTENSION 03/13/2017 BAIMA, HELENE L LABEL SEWER Ot I25.10 ATHSCL HEART DISEASE OF [place] CORONARY 03/13/2017 BAIMA, HELENE L LABEL SEWER Ot J84.10 PULMONARY FIBROSIS, UNSPECIFIED 03/13/2017 BAIMA, HELENE L LABEL SEWER Ot R06.00 DYSPNEA, UNSPECIFIED 03/13/2017 BAIMA, HELENE L LABEL SEWER Ot R53.83 OTHER FATIGUE 03/13/2017 BAIMA, HELENE L LABEL SEWER Ot E78.4 OTHER HYPERLIPIDEMIA 03/13/2017 BAIMA, HELENE L LABEL SEWER Ot I 10 ESSENTIAL (PRIMARY) HYPERTENSION 03/13/2017 BAIMA, HELENE L LABEL SEWER Ot I25.10 ATHSCL HEART DISEASE OF [place] CORONARY 03/13/2017 BAIMA, HELENE L LABEL SEWER Ot I44.7 LEFT BUNDLE-BRANCH BLOCK, UNSPECIFIED 03/13/2017 BAIMA, HELENE L LABEL SEWER Ot R06.09 OTHER FORMS OF DYSPNEA 03/13/2017 BAIMA, HELENE L LABEL SEWER Ot R53.83 OTHER FATIGUE 03/13/2017 BAIMA, HELENE L LABEL SEWER Ot E78.4 OTHER HYPERLIPIDEMIA 03/13/2017 BAIMA, HELENE L LABEL SEWER Ot I 10 ESSENTIAL (PRIMARY) HYPERTENSION 03/13/2017 BAIMA, HELENE L LABEL SEWER Ot I25.10 ATHSCL HEART DISEASE OF [place] CORONARY 03/13/2017 BAIMA, HELENE L LABEL SEWER Ot I44.7 LEFT BUNDLE-BRANCH BLOCK, UNSPECIFIED 03/13/2017 BAIMA, HELENE L LABEL SEWER Ot R06.09 OTHER FORMS OF DYSPNEA 03/13/2017 BAIMA, HELENE L LABEL SEWER Ot R53.83 OTHER FATIGUE 03/13/2017 FELIPE CASILLAS FACC, ALI FACP CCDS Ot I25.10 ATHSCL HEART DISEASE OF [place] CORONARY 03/13/2017 FELIPE CASILLAS FACC, ALI FACP [...] MAMMOGRAM FOR MALIGNANT NE 03/13/2017 VAN JONES MANUFACTURING ENGINEERING MANAGER Ot J44.9 CHRONIC OBSTRUCTIVE PULMONARY DISEASE, U 03/13/2017 VAN JONES MANUFACTURING ENGINEERING MANAGER Ot J45.909 UNSPECIFIED ASTHMA, UNCOMPLICATED 03/13/2017 VAN JONES MANUFACTURING ENGINEERING MANAGER Ot 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 03/13/2017 VAN JONES MANUFACTURING ENGINEERING MANAGER Ot R91.8 OTHER NONSPECIFIC ABNORMAL FINDING OF [place] 03/13/2017 VAN JONES MANUFACTURING ENGINEERING MANAGER Ot I27.20 PULMONARY HYPERTENSION, UNSPECIFIED 03/13/2017 VAN JONES MANUFACTURING ENGINEERING MANAGER Ot J44.9 CHRONIC OBSTRUCTIVE PULMONARY DISEASE, U 03/13/2017 VAN JONES MANUFACTURING ENGINEERING MANAGER Ot J45.909 UNSPECIFIED ASTHMA, UNCOMPLICATED 03/13/2017 VAN JONES MANUFACTURING ENGINEERING MANAGER Ot R06.02 SHORTNESS OF BREATH 03/16/2017 DEJA PARKS BRAND MARKETING SPECIALIST-C Ot M17.11 UNILATERAL PRIMARY OSTEOARTHRITIS, RIGHT 04/07/2017 DEJA PARKS BRAND MARKETING SPECIALIST-C Ot M17.11 UNILATERAL PRIMARY OSTEOARTHRITIS, RIGHT 04/12/2017 VAN JONES MANUFACTURING ENGINEERING MANAGER Ot I27.20 PULMONARY HYPERTENSION, UNSPECIFIED 04/12/2017 VAN JONES MANUFACTURING ENGINEERING MANAGER Ot J44.9 CHRONIC OBSTRUCTIVE PULMONARY DISEASE, U 04/12/2017 VAN JONES MANUFACTURING ENGINEERING MANAGER Ot J45.909 UNSPECIFIED ASTHMA, UNCOMPLICATED 04/12/2017 VAN JONES MANUFACTURING ENGINEERING MANAGER Ot R06.02 SHORTNESS OF BREATH 04/14/2017 DEJA PARKS BRAND MARKETING SPECIALIST-C Ot M17.11 UNILATERAL PRIMARY OSTEOARTHRITIS, RIGHT 04/28/2017 [...] 04/28/2017 Ot 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 04/28/2017 Ot V58.69 OTH MED,LT,CURRENT USE 04/28/2017 Ot 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 04/28/2017 Ot 786.09 RES PIRATORY ABNORM [...] PRE -PROCEDURAL LABORATORY EXAMINATION 04/28/2017 Ot V72.81 [id number] CARDIOVASCULAR 04/28/2017 Ot V74.8 SCRE EN-BACTERIAL DIS [...] 04/28/2017 Ot 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 04/28/2017 Ot V58.69 OTH MED,LT,CURRENT USE [...] PRE -PROCEDURAL LABORATORY EXAMINATION 04/28/2017 Ot V72.81 [id number] CARDIOVASCULAR 04/28/2017 Ot V58.61 ANTICOAGULANTS,LT,CURRENT USE 04/28/2017 [...] LAURA NT PAIN-PELVIS 04/28/2017 BAIMA, HELENE L LABEL SEWER Ot 272.4 HYPERLIPIDEMIA NEC/NOS 04/28/2017 BAIMA, HELENE L LABEL SEWER Ot 272.4 HYPERLIPIDEMIA NEC/NOS 04/28/2017 BAIMA, HELENE L LABEL SEWER Ot 401.9 HYPERTENSION NOS 04/28/2017 BAIMA, HELENE L LABEL SEWER Ot 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 NOS TYPE VESSEL, NATIV 04/28/2017 BAIMA, HELENE L LABEL SEWER Ot 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 NEC 04/28/2017 BAIMA, HELENE L LABEL SEWER Ot 426.3 LEFT BB BLOCK NEC 04/28/2017 BAIMA, HELENE L LABEL SEWER Ot 272.4 HYPERLIPIDEMIA NEC/NOS 04/28/2017 BAIMA, HELENE L LABEL SEWER Ot 401.9 HYPERTENSION NOS 04/28/2017 BAIMA, HELENE L LABEL SEWER Ot 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 NOS TYPE VESSEL, NATIV 04/28/2017 BAIMA, HELENE L LABEL SEWER Ot 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 NEC 04/28/2017 BAIMA, HELENE L LABEL SEWER Ot 426.3 LEFT BB BLOCK NEC 04/28/2017 [...] 786. 05 SHORTNESS OF BREATH 04/28/2017 HELENE TEJEDA Tab LABEL SEWER Ot 272.4 HYPERLIPIDEMIA NEC/NOS 04/28/2017 BAIMA HELENE L LABEL SEWER Ot 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 NOS TYPE VESSEL, NATIV 04/28/2017 HELENE TEJEDA LABEL SEWER Ot V58.69 OTH MED,LT,CURRENT USE 04/28/2017 RODRIGO [...] V58.69 OTH MED,LT,CURRENT USE 04/28/2017 MOISES SAUL LABEL SEWER Ot V76.1 2 OTH SCREEN MAMMO-MALIGN NEOPLASM [...] R53.83 OTHER FATIGUE 04/28/2017 BAIMA, HELENE L LABEL SEWER Ot E78.5 HYPERLIPIDEMIA, UNSPECIFIED 04/28/2017 BAIMA, HELENE L LABEL SEWER Ot I 10 ESSENTIAL (PRIMARY) HYPERTENSION 04/28/2017 BAIMA, HELENE L LABEL SEWER Ot I25.10 ATHSCL HEART DISEASE OF [place] CORONARY 04/28/2017 BAIMA, HELENE L LABEL SEWER Ot J84.10 PULMONARY FIBROSIS, UNSPECIFIED 04/28/2017 BAIMA, HELENE L LABEL SEWER Ot R06.00 DYSPNEA, UNSPECIFIED 04/28/2017 BAIMA, HELENE L LABEL SEWER Ot R53.83 OTHER FATIGUE 04/28/2017 BAIMA, HELENE L LABEL SEWER Ot E78.4 OTHER HYPERLIPIDEMIA 04/28/2017 BAIMA, HELENE L LABEL SEWER Ot I 10 ESSENTIAL (PRIMARY) HYPERTENSION 04/28/2017 BAIMA, HELENE L LABEL SEWER Ot I25.10 ATHSCL HEART DISEASE OF [place] CORONARY 04/28/2017 BAIMA, HELENE L LABEL SEWER Ot I44.7 LEFT BUNDLE-BRANCH BLOCK, UNSPECIFIED 04/28/2017 BAIMA, HELENE L LABEL SEWER Ot R06.09 OTHER FORMS OF DYSPNEA 04/28/2017 BAIMA, HELENE L LABEL SEWER Ot R53.83 OTHER FATIGUE 04/28/2017 BAIMA, HELENE L LABEL SEWER Ot E78.4 OTHER HYPERLIPIDEMIA 04/28/2017 BAIMA, HELENE L LABEL SEWER Ot I 10 ESSENTIAL (PRIMARY) HYPERTENSION 04/28/2017 BAIMA, HELENE L LABEL SEWER Ot I25.10 ATHSCL HEART DISEASE OF [place] CORONARY 04/28/2017 BAIMA, HELENE L LABEL SEWER Ot I44.7 LEFT BUNDLE-BRANCH BLOCK, UNSPECIFIED 04/28/2017 BAIMA, HELENE L LABEL SEWER Ot R06.09 OTHER FORMS OF DYSPNEA 04/28/2017 BAIMA, HELENE L LABEL SEWER Ot R53.83 OTHER FATIGUE 04/28/2017 FELIPE CASILLAS FACC, ALI FACP CCDS Ot I25.10 ATHSCL HEART DISEASE OF [place] CORONARY 04/28/2017 FELIPE CASILLAS FACC, ALI FACP CCDS Ot J43.8 OTHER EMPHYSEMA 04/28/2017 FELIPE CASILLAS FACC, ALI FACP CCDS Ot 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 04/28/2017 FELIPE CASILLAS [facility] CCDS Ot R06.02 SHORTNESS OF BREATH 04/28/2017 FELIPE CASILLAS [facility] CCDS Ot R53.83 OTHER FATIGUE 04/28/2017 GELFELICIANO [...] 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 04/28/2017 VAN JONES MANUFACTURING ENGINEERING MANAGER Ot R91.8 OTHER NONSPECIFIC ABNORMAL FINDING OF [...] LAURA NT PAIN-PELVIS 04/29/2017 BAIMA, HELENE L LABEL SEWER Ot 272.4 HYPERLIPIDEMIA NEC/NOS 04/29/2017 BAIMA, HELENE L LABEL SEWER Ot 272.4 HYPERLIPIDEMIA NEC/NOS 04/29/2017 BAIMA, HELENE L LABEL SEWER Ot 401.9 HYPERTENSION NOS 04/29/2017 BAIMA, HELENE L LABEL SEWER Ot 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 NOS TYPE VESSEL, NATIV 04/29/2017 BAIMA, HELENE L LABEL SEWER Ot 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 NEC 04/29/2017 BAIMA, HELENE L LABEL SEWER Ot 426.3 LEFT BB BLOCK NEC 04/29/2017 BAIMA, HELENE L LABEL SEWER Ot 272.4 HYPERLIPIDEMIA NEC/NOS 04/29/2017 BAIMA, HELENE L LABEL SEWER Ot 401.9 HYPERTENSION NOS 04/29/2017 BAIMA, HELENE L LABEL SEWER Ot 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 NOS TYPE VESSEL, NATIV 04/29/2017 BAIMA, HELENE L LABEL SEWER Ot 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 NEC 04/29/2017 BAIMA, HELENE L LABEL SEWER Ot 426.3 LEFT BB BLOCK NEC 04/29/2017 ANA LAURA FERRER DO Ot 272. 4 HYPERLIPIDEMIA NEC/NOS 04/29/2017 ANA LAURA FERRER DO Ot 278. 00 OBESITY, NOS 04/29/2017 ANA LAURA FERRER DO Ot 401. 9 HYPERTENSION NOS 04/29/2017 ANA LAURA FERRER DO Ot 414. 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 NOS TYPE VESSEL, NATIV 04/29/2017 ANA LAURA FERRER DO Ot 416. 8 [...] 786.50 CHEST PAIN NOS 04/29/2017 BEVERLYHELENE LUU LABEL SEWER Ot 272.4 HYPERLIPIDEMIA NEC/NOS 04/29/2017 HELENE TEJEDA LABEL SEWER Ot 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 NOS TYPE VESSEL, NATIV 04/29/2017 HELENE TEJEDA LABEL SEWER Ot V58.69 OTH MED,LT,CURRENT USE 04/29/2017 MAME [...] CCDS Ot V58.69 OTH MED,LT,CURRENT USE 04/29/2017 DORYSMOISES LABEL SEWER Ot V76.1 2 OTH SCREEN MAMMO-MALIGN NEOPLASM [...] Ot R53.83 OTHER FATIGUE 04/29/2017 HELENE TEJEDA LABEL SEWER Ot E78.5 HYPERLIPIDEMIA, UNSPECIFIED 04/29/2017 HELENE TEJEDA LABEL SEWER Ot I 10 ESSENTIAL (PRIMARY) HYPERTENSION 04/29/2017 HELENE TEJEDA LABEL SEWER Ot I25.10 ATHSCL HEART DISEASE OF [place] CORONARY 04/29/2017 HELENE TEJEDA LABEL SEWER Ot J84.10 PULMONARY FIBROSIS, UNSPECIFIED 04/29/2017 BAIMA, HELENE L LABEL SEWER Ot R06.00 DYSPNEA, UNSPECIFIED 04/29/2017 BAIMA, HELENE L LABEL SEWER Ot R53.83 OTHER FATIGUE 04/29/2017 BAIMA, HELENE L LABEL SEWER Ot E78.4 OTHER HYPERLIPIDEMIA 04/29/2017 BAIMA, HELENE L LABEL SEWER Ot I 10 ESSENTIAL (PRIMARY) HYPERTENSION 04/29/2017 BAIMA, HELENE L LABEL SEWER Ot I25.10 ATHSCL HEART DISEASE OF [place] CORONARY 04/29/2017 BAIMA, HELENE L LABEL SEWER Ot I44.7 LEFT BUNDLE-BRANCH BLOCK, UNSPECIFIED 04/29/2017 BAIMA, HELENE L LABEL SEWER Ot R06.09 OTHER FORMS OF DYSPNEA 04/29/2017 BAIMA, HELENE L LABEL SEWER Ot R53.83 OTHER FATIGUE 04/29/2017 BAIMA, HELENE L LABEL SEWER Ot E78.4 OTHER HYPERLIPIDEMIA 04/29/2017 BAIMA, HELENE L LABEL SEWER Ot I 10 ESSENTIAL (PRIMARY) HYPERTENSION 04/29/2017 BAIMA, HELENE L LABEL SEWER Ot I25.10 ATHSCL HEART DISEASE OF [place] CORONARY 04/29/2017 BAIMA, HELENE L LABEL SEWER Ot I44.7 LEFT BUNDLE-BRANCH BLOCK, UNSPECIFIED 04/29/2017 BAIMA, HELENE L LABEL SEWER Ot R06.09 OTHER FORMS OF DYSPNEA 04/29/2017 BAIMA, HELENE L LABEL SEWER Ot R53.83 OTHER FATIGUE 04/29/2017 FELIPE CASILLAS FACC, ALI FACP CCDS Ot I25.10 ATHSCL HEART DISEASE OF [place] CORONARY 04/29/2017 FELIPE CASILLAS FACC, ALI FACP [...] MAMMOGRAM FOR MALIGNANT NE 04/29/2017 VAN JONES MANUFACTURING ENGINEERING MANAGER Ot J44.9 CHRONIC OBSTRUCTIVE PULMONARY DISEASE, U 04/29/2017 VANDA JONESINE Verónica MANUFACTURING ENGINEERING MANAGER Ot J45.909 UNSPECIFIED ASTHMA, UNCOMPLICATED 04/29/2017 VANDA JONESINE Verónica MANUFACTURING ENGINEERING MANAGER Ot 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02 SHORTNESS OF BREATH 09/21/2017 VAN JONES MANUFACTURING ENGINEERING MANAGER Ot J44.9 CHRONIC OBSTRUCTIVE PULMONARY DISEASE, U 09/21/2017 VANDA JONESINE [place] MANUFACTURING ENGINEERING MANAGER Ot 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 09/21/2017 VANDA JONESINE [place] MANUFACTURING ENGINEERING MANAGER Ot R91.8 OTHER NONSPECIFIC ABNORMAL FINDING OF [place] 09/21/2017 VAN JONES MANUFACTURING ENGINEERING MANAGER Ot J44.9 CHRONIC OBSTRUCTIVE PULMONARY DISEASE, U 09/21/2017 VANDA JONESINE [place] MANUFACTURING ENGINEERING MANAGER Ot 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 09/21/2017 VANDA JONESINE E MANUFACTURING ENGINEERING MANAGER Ot R91.8 OTHER NONSPECIFIC ABNORMAL FINDING OF [place] 09/23/2017 MAME GIRARD DO Ot Z12.3 1 ENCNTR SCREEN MAMMOGRAM FOR MALIGNANT NE 09/23/2017 VAN JONES MANUFACTURING ENGINEERING MANAGER Ot J44.9 CHRONIC OBSTRUCTIVE PULMONARY DISEASE, U 09/23/2017 VANDA JONESINE E MANUFACTURING ENGINEERING MANAGER Ot 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 09/23/2017 VANDA JONESINE [place] MANUFACTURING ENGINEERING MANAGER Ot R91.8 OTHER NONSPECIFIC ABNORMAL FINDING OF [place] 09/23/2017 MAME GIRARD DO C Ot Z12.3 1 ENCNTR SCREEN MAMMOGRAM FOR MALIGNANT NE 09/23/2017 MAME GIRARD DO C Ot Z12.3 1 ENCNTR SCREEN MAMMOGRAM FOR MALIGNANT NE 09/24/2017 JAGDISH GIRARD DOA C Ot Z12.3 1 ENCNTR SCREEN MAMMOGRAM FOR MALIGNANT NE 10/12/2017 KARENVAN VAZ MANUFACTURING ENGINEERING MANAGER Ot J44.9 CHRONIC OBSTRUCTIVE PULMONARY DISEASE, U 10/12/2017 KARENVANDA VAZINE E MANUFACTURING ENGINEERING MANAGER Ot 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 10/12/2017 KARENVANDA VAZINE E MANUFACTURING ENGINEERING MANAGER Ot R91.8 OTHER NONSPECIFIC ABNORMAL FINDING OF [place] 10/14/2017 MAME GIRARD DO C Ot Z12.3 1 ENCNTR SCREEN MAMMOGRAM FOR MALIGNANT NE 12/14/2017 KARENVANDA VAZINE E MANUFACTURING ENGINEERING MANAGER Ot J44.9 CHRONIC OBSTRUCTIVE PULMONARY DISEASE, U 12/14/2017 KARENVANDA VAZINE E MANUFACTURING ENGINEERING MANAGER Ot 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 12/14/2017 VANDA JONESINE E MANUFACTURING ENGINEERING MANAGER Ot R91.8 OTHER NONSPECIFIC ABNORMAL FINDING OF [place] 01/31/2018 BAIMA, HELENE L LABEL SEWER Ot 272.4 HYPERLIPIDEMIA NEC/NOS 01/31/2018 BAIMA, HELENE L LABEL SEWER Ot 272.4 HYPERLIPIDEMIA NEC/NOS 01/31/2018 BAIMA, HELENE L LABEL SEWER Ot 401.9 HYPERTENSION NOS 01/31/2018 BAIMA, HELENE L LABEL SEWER Ot 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 NOS TYPE VESSEL, NATIV 01/31/2018 BAIMA, HELENE L LABEL SEWER Ot 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 NEC 01/31/2018 BAIMA, HELENE L LABEL SEWER Ot 426.3 LEFT BB BLOCK NEC 01/31/2018 BAIMA, HELENE L LABEL SEWER Ot 272.4 HYPERLIPIDEMIA NEC/NOS 01/31/2018 BAIMA, HELENE L LABEL SEWER Ot 401.9 HYPERTENSION NOS 01/31/2018 BAIMA, HELENE L LABEL SEWER Ot 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 NOS TYPE VESSEL, NATIV 01/31/2018 BAIMA, HELENE L LABEL SEWER Ot 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 NEC 01/31/2018 BAIMA, HELENE L LABEL SEWER Ot 426.3 LEFT BB BLOCK NEC 01/31/2018 [...] 786.50 CHEST PAIN NOS 01/31/2018 HELENE TEJEDA LABEL SEWER Ot 272.4 HYPERLIPIDEMIA NEC/NOS 01/31/2018 HELENE TEJEDA LABEL SEWER Ot 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 NOS TYPE VESSEL, NATIV 01/31/2018 HELENE TEJEDA LABEL SEWER Ot V58.69 OTH MED,LT,CURRENT USE 01/31/2018 SHAJI PEDRAZA MAME Kelly Ot V76.1 2 OTH SCREEN [...] V58.69 OTH MED,LT,CURRENT USE 01/31/2018 MOISES SAUL LABEL SEWER Ot V76.1 2 OTH SCREEN MAMMO-MALIGN NEOPLASM [...] R53.83 OTHER FATIGUE 01/31/2018 BAIMA, HELENE L LABEL SEWER Ot E78.5 HYPERLIPIDEMIA, UNSPECIFIED 01/31/2018 BAIMA, HELENE L LABEL SEWER Ot I 10 ESSENTIAL (PRIMARY) HYPERTENSION 01/31/2018 BAIMA, HELENE L LABEL SEWER Ot I25.10 ATHSCL HEART DISEASE OF [place] CORONARY 01/31/2018 BAIMA, HELENE L LABEL SEWER Ot J84.10 PULMONARY FIBROSIS, UNSPECIFIED 01/31/2018 BAIMA, HELENE L LABEL SEWER Ot R06.00 DYSPNEA, UNSPECIFIED 01/31/2018 BAIMA, HELENE L LABEL SEWER Ot R53.83 OTHER FATIGUE 01/31/2018 BAIMA, HELENE L LABEL SEWER Ot E78.4 OTHER HYPERLIPIDEMIA 01/31/2018 BAIMA, HELENE L LABEL SEWER Ot I 10 ESSENTIAL (PRIMARY) HYPERTENSION 01/31/2018 BAIMA, HELENE L LABEL SEWER Ot I25.10 ATHSCL HEART DISEASE OF [place] CORONARY 01/31/2018 BAIMA, HELENE L LABEL SEWER Ot I44.7 LEFT BUNDLE-BRANCH BLOCK, UNSPECIFIED 01/31/2018 BAIMA, HELENE L LABEL SEWER Ot R06.09 OTHER FORMS OF DYSPNEA 01/31/2018 BAIMA, HELENE L LABEL SEWER Ot R53.83 OTHER FATIGUE 01/31/2018 BAIMA, HELENE L LABEL SEWER Ot E78.4 OTHER HYPERLIPIDEMIA 01/31/2018 BAIMA, HELENE L LABEL SEWER Ot I 10 ESSENTIAL (PRIMARY) HYPERTENSION 01/31/2018 BAIMA, HELENE L LABEL SEWER Ot I25.10 ATHSCL HEART DISEASE OF [place] CORONARY 01/31/2018 BAIMA, HELENE L LABEL SEWER Ot I44.7 LEFT BUNDLE-BRANCH BLOCK, UNSPECIFIED 01/31/2018 BAIMA, HELENE L LABEL SEWER Ot R06.09 OTHER FORMS OF DYSPNEA 01/31/2018 BAIMA, HELENE L LABEL SEWER Ot R53.83 OTHER FATIGUE 01/31/2018 FELIPE CASILLAS FACC, ALI FACP CCDS Ot I25.10 ATHSCL HEART DISEASE OF [place] CORONARY 01/31/2018 FELIPE CASILLAS FACC, ALI FACP [...] R06. 02 SHORTNESS OF BREATH 01/31/2018 MAME GIARRD DO Ot Z12.3 1 ENCNTR SCREEN MAMMOGRAM FOR MALIGNANT NE 01/31/2018 VAN JONES APRN Ot J44.9 CHRONIC OBSTRUCTIVE PULMONARY DISEASE, U 01/31/2018 VAN JONES APRN Ot J45.909 UNSPECIFIED ASTHMA, UNCOMPLICATED 01/31/2018 VAN JONES MANUFACTURING ENGINEERING MANAGER Ot 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 01/31/2018 VAN JONES MANUFACTURING ENGINEERING MANAGER Ot R91.8 OTHER NONSPECIFIC ABNORMAL FINDING OF [place] 01/31/2018 VAN JONES APRN Ot J44.9 CHRONIC OBSTRUCTIVE PULMONARY DISEASE, U 01/31/2018 VAN JONES MANUFACTURING ENGINEERING MANAGER Ot 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 01/31/2018 VAN JONES MANUFACTURING ENGINEERING MANAGER Ot R91.8 OTHER NONSPECIFIC ABNORMAL FINDING OF [place] 01/31/2018 DEJA PARKS-C Ot M17.11 UNILATERAL PRIMARY OSTEOARTHRITIS, RIGHT 01/31/2018 VAN JONES MANUFACTURING ENGINEERING MANAGER Ot I27.20 PULMONARY HYPERTENSION, UNSPECIFIED 01/31/2018 VAN JONES MANUFACTURING ENGINEERING MANAGER Ot J44.9 CHRONIC OBSTRUCTIVE PULMONARY DISEASE, U 01/31/2018 VAN JONES MANUFACTURING ENGINEERING MANAGER Ot J45.909 UNSPECIFIED ASTHMA, UNCOMPLICATED 01/31/2018 VAN JONES MANUFACTURING ENGINEERING MANAGER Ot R06.02 SHORTNESS OF BREATH 01/31/2018 MAME [...] I10 ESSENTIAL (PRIMARY) HYPERTENSION 08/16/2018 FELIPE CASILLAS [facility], ALI FACP CCDS Ot R06.02 SHORTNESS OF [...] 786.50 CHEST PAIN NOS 10/07/2018 HELENE TEJEDA LABEL SEWER Ot 272.4 HYPERLIPIDEMIA NEC/NOS 10/07/2018 HELENE TEJEDA LABEL SEWER Ot 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 NOS TYPE VESSEL, NATIV 10/07/2018 HELENE TEJEDA LABEL SEWER Ot V58.69 OTH MED,LT,CURRENT USE 10/07/2018 MAME [...] R53.83 OTHER FATIGUE 10/07/2018 BAIMA, HELENE L LABEL SEWER Ot E78.5 HYPERLIPIDEMIA, UNSPECIFIED 10/07/2018 BAIMA, HELENE L LABEL SEWER Ot I 10 ESSENTIAL (PRIMARY) HYPERTENSION 10/07/2018 BAIMA, HELENE L LABEL SEWER Ot I25.10 ATHSCL HEART DISEASE OF [place] CORONARY 10/07/2018 BAIMA, HELENE L LABEL SEWER Ot J84.10 PULMONARY FIBROSIS, UNSPECIFIED 10/07/2018 BAIMA, HELENE L LABEL SEWER Ot R06.00 DYSPNEA, UNSPECIFIED 10/07/2018 BAIMA, HELENE L LABEL SEWER Ot R53.83 OTHER FATIGUE 10/07/2018 BAIMA, HELENE L LABEL SEWER Ot E78.4 OTHER HYPERLIPIDEMIA 10/07/2018 BAIMA, HELENE L LABEL SEWER Ot I 10 ESSENTIAL (PRIMARY) HYPERTENSION 10/07/2018 BAIMA, HELENE L LABEL SEWER Ot I25.10 ATHSCL HEART DISEASE OF [place] CORONARY 10/07/2018 BAIMA, HELENE L LABEL SEWER Ot I44.7 LEFT BUNDLE-BRANCH BLOCK, UNSPECIFIED 10/07/2018 BAIMA, HELENE L LABEL SEWER Ot R06.09 OTHER FORMS OF DYSPNEA 10/07/2018 BAIMA, HELENE L LABEL SEWER Ot R53.83 OTHER FATIGUE 10/07/2018 BAIMA, HELENE L LABEL SEWER Ot E78.4 OTHER HYPERLIPIDEMIA 10/07/2018 BAIMA, HELENE L LABEL SEWER Ot I 10 ESSENTIAL (PRIMARY) HYPERTENSION 10/07/2018 BAIMA, HELENE L LABEL SEWER Ot I25.10 ATHSCL HEART DISEASE OF [place] CORONARY 10/07/2018 BAIMA, HELENE L LABEL SEWER Ot I44.7 LEFT BUNDLE-BRANCH BLOCK, UNSPECIFIED 10/07/2018 BAIMA, HELENE L LABEL SEWER Ot R06.09 OTHER FORMS OF DYSPNEA 10/07/2018 BAIMA, HELENE L LABEL SEWER Ot R53.83 OTHER FATIGUE 10/07/2018 FELIPE CASILLAS FACC, ALI FACP CCDS Ot I25.10 ATHSCL HEART DISEASE OF [place] CORONARY 10/07/2018 FELIPE CASILLAS FACC, ALI FACP CCDS Ot J43.8 OTHER EMPHYSEMA 10/07/2018 FELIPE CASILLAS [facility], [facility] CCDS Ot 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 10/07/2018 FELIPE CASILLAS [facility], [facility] CCDS Ot R06.02 SHORTNESS OF BREATH 10/07/2018 FELIPE CASILLAS [facility], [facility] CCDS Ot R53.83 OTHER FATIGUE 10/07/2018 GELLENDER [...] ABNORMAL FINDING OF [place] 10/07/2018 DEJA PARKS BRAND MARKETING SPECIALIST-C Ot M17.11 UNILATERAL PRIMARY OSTEOARTHRITIS, RIGHT 10/07/2018 [...] URETER, UNSPECIFI 10/07/2018 FELIPE CASILLAS FAC, ALI [facility] CCDS Ot E78.5 HYPERLIPIDEMIA, UNSPECIFIED 10/07/2018 FELIPE CASILLAS FAC, ALI FAC CCDS Ot I10 ESSENTIAL (PRIMARY) HYPERTENSION 10/07/2018 FELIPE CASILLAS [facility], ALI [facility] CCDS Ot R06.02 SHORTNESS OF BREATH 10/07/2018 [...] Ot I25. 10 ATHSCL HEART DISEASE OF [place] CORONARY 10/11/2018 REINIER ADEN DO Ot I27. [...] 10/11/2018 REINIER ADEN DO Ot Z79.899 OTHER MOLD SWABBER (CURRENT) DRUG THERAPY 10/11/2018 REINIER ADEN DO [...] Ot I25. 10 ATHSCL HEART DISEASE OF [place] CORONARY 10/18/2018 REINIER ADEN DO Ot I27. [...] Ot I25. 10 ATHSCL HEART DISEASE OF [place] CORONARY 10/20/2018 REINIER ADEN DO Ot I27. 20 PULMONARY HYPERTENSION, UNSPECIFIED 10/20/2018 REINIER ADEN DO Ot I50. 9 HEART FAILURE, UNSPECIFIED 10/20/2018 REINIER ADEN DO Ot J44. 9 CHRONIC OBSTRUCTIVE PULMONARY DISEASE, U 10/20/2018 REINIRE ADEN DO Ot K21. 9 GASTRO-ESOPHAGEAL REFLUX DISEASE WITHOUT 10/20/2018 REINIER ADEN DO Ot K44. 9 DIAPHRAGMATIC HERNIA WITHOUT OBSTRUCTION 10/20/2018 REINIER ADEN DO Ot K57. 30 DVRTCLOS OF LG INT W/O PERFORATION OR AB 10/20/2018 REINIER ADEN DO Ot K64. 8 OTHER HEMORRHOIDS 10/20/2018 REINIER ADEN DO Ot Z79. 82 MOLD SWABBER (CURRENT) USE OF ASPIRIN 10/20/2018 REINIER ADEN DO Ot Z79.899 OTHER MOLD SWABBER (CURRENT) DRUG THERAPY 10/20/2018 REINIER ADEN DO [...] R53.83 OTHER FATIGUE 11/21/2018 BAIMA, HELENE L LABEL SEWER Ot E78.5 HYPERLIPIDEMIA, UNSPECIFIED 11/21/2018 BAIMA, HELENE L LABEL SEWER Ot I 10 ESSENTIAL (PRIMARY) HYPERTENSION 11/21/2018 BAIMA, HELENE L LABEL SEWER Ot I25.10 ATHSCL HEART DISEASE OF [place] CORONARY 11/21/2018 BAIMA, HELENE L LABEL SEWER Ot J84.10 PULMONARY FIBROSIS, UNSPECIFIED 11/21/2018 BAIMA, HELENE L LABEL SEWER Ot R06.00 DYSPNEA, UNSPECIFIED 11/21/2018 BAIMA, HELENE L LABEL SEWER Ot R53.83 OTHER FATIGUE 11/21/2018 BAIMA, HELENE L LABEL SEWER Ot E78.4 OTHER HYPERLIPIDEMIA 11/21/2018 BAIMA, HELENE L LABEL SEWER Ot I 10 ESSENTIAL (PRIMARY) HYPERTENSION 11/21/2018 BAIMA, HELENE L LABEL SEWER Ot I25.10 ATHSCL HEART DISEASE OF [place] CORONARY 11/21/2018 BAIMA, HELENE L LABEL SEWER Ot I44.7 LEFT BUNDLE-BRANCH BLOCK, UNSPECIFIED 11/21/2018 BAIMA, HELENE L LABEL SEWER Ot R06.09 OTHER FORMS OF DYSPNEA 11/21/2018 BAIMA, HELENE L LABEL SEWER Ot R53.83 OTHER FATIGUE 11/21/2018 BAIMA, HELENE L LABEL SEWER Ot E78.4 OTHER HYPERLIPIDEMIA 11/21/2018 HELENE TEJEDA LABEL SEWER Ot I 10 ESSENTIAL (PRIMARY) HYPERTENSION 11/21/2018 HELENE TEJEDA LABEL SEWER Ot I25.10 ATHSCL HEART DISEASE OF [place] CORONARY 11/21/2018 HELENE TEJEDA LABEL SEWER Ot I44.7 LEFT BUNDLE-BRANCH BLOCK, UNSPECIFIED 11/21/2018 HELENE TEJEDA LABEL SEWER Ot R06.09 OTHER FORMS OF DYSPNEA 11/21/2018 HELENE TEJEDA LABEL SEWER Ot R53.83 OTHER FATIGUE 11/21/2018 FELIPE CASILLAS FAC, ALI FACP CCDS Ot I25.10 ATHSCL HEART DISEASE OF [place] CORONARY 11/21/2018 FELIPE CASILLAS [facility], ALI FACP CCDS Ot J43.8 OTHER EMPHYSEMA 11/21/2018 FELIPE CASILLAS [facility], ALI FACP CCDS Ot 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 11/21/2018 FELIPE CASILLAS [facility], ALI FACP CCDS Ot R06.02 SHORTNESS OF BREATH 11/21/2018 FELIPE CASILLAS [facility], ALI FACP CCDS Ot R53.83 OTHER FATIGUE [...] PULMONARY DISEASE, U 11/21/2018 KAREN, VAN E MANUFACTURING ENGINEERING MANAGER Ot 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 5 HYPERLIPIDEMIA, UNSPECIFIED 12/08/2018 REINIER AEDN DO Ot F32. 9 MAJOR DEPRESSIVE DISORDER, SINGLE EPISOD 12/08/2018 REINIER ADEN DO Ot F41. 9 ANXIETY DISORDER, UNSPECIFIED 12/08/2018 REINIER ADEN DO Ot I11. 0 HYPERTENSIVE HEART DISEASE WITH HEART FA 12/08/2018 REINIER ADEN DO Ot I25. 10 ATHSCL HEART DISEASE OF [place] CORONARY 12/08/2018 REINIER ADEN DO Ot I44. [...] Ot I25. 10 ATHSCL HEART DISEASE OF [place] CORONARY 12/15/2018 REINIER ADEN DO Ot I44. [...] 12/15/2018 REINIER ADEN DO Ot Z79.899 OTHER MOLD SWABBER (CURRENT) DRUG THERAPY 12/15/2018 REINIER ADEN DO [...] Ot 272.4 HYPERLIPIDEMIA NEC/NOS 12/21/2018 FELIPE CASILLAS [facility], ALI FACP CCDS Ot 397.0 TRICUSPID VALVE [...] 786.05 SHORTNESS OF BREATH 12/21/2018 FELIPE CASILLAS [facility], ALI FACP CCDS Ot V58.69 OTH MED,LT,CURRENT USE 12/21/2018 MOISES SAUL LABEL SEWER Ot V76.1 2 OTH SCREEN MAMMO-MALIGN NEOPLASM [...] Ot R53.83 OTHER FATIGUE 12/21/2018 HELENE TEJEDA LABEL SEWER Ot E78.5 HYPERLIPIDEMIA, UNSPECIFIED 12/21/2018 BAIHELENE LUU LABEL SEWER Ot I 10 ESSENTIAL (PRIMARY) HYPERTENSION 12/21/2018 HELENE TEJEDA LABEL SEWER Ot I25.10 ATHSCL HEART DISEASE OF [place] CORONARY 12/21/2018 BAIMA, HELENE L LABEL SEWER Ot J84.10 PULMONARY FIBROSIS, UNSPECIFIED 12/21/2018 BAIMA, HELENE L LABEL SEWER Ot R06.00 DYSPNEA, UNSPECIFIED 12/21/2018 BAIMA, HELENE L LABEL SEWER Ot R53.83 OTHER FATIGUE 12/21/2018 BAIMA, HELENE L LABEL SEWER Ot E78.4 OTHER HYPERLIPIDEMIA 12/21/2018 BAIMA, HEELNE L LABEL SEWER Ot I 10 ESSENTIAL (PRIMARY) HYPERTENSION 12/21/2018 BAIMA, HELENE L LABEL SEWER Ot I25.10 ATHSCL HEART DISEASE OF [place] CORONARY 12/21/2018 BAIMA, HELENE L LABEL SEWER Ot I44.7 LEFT BUNDLE-BRANCH BLOCK, UNSPECIFIED 12/21/2018 BAIMA, HELENE L LABEL SEWER Ot R06.09 OTHER FORMS OF DYSPNEA 12/21/2018 BAIMA, HELENE L LABEL SEWER Ot R53.83 OTHER FATIGUE 12/21/2018 BAIMA, HELENE L LABEL SEWER Ot E78.4 OTHER HYPERLIPIDEMIA 12/21/2018 BAIMA, HELENE L LABEL SEWER Ot I 10 ESSENTIAL (PRIMARY) HYPERTENSION 12/21/2018 BAIMA, HELENE L LABEL SEWER Ot I25.10 ATHSCL HEART DISEASE OF [place] CORONARY 12/21/2018 BAIMA, HELENE L LABEL SEWER Ot I44.7 LEFT BUNDLE-BRANCH BLOCK, UNSPECIFIED 12/21/2018 BAIMA, HELENE L LABEL SEWER Ot R06.09 OTHER FORMS OF DYSPNEA 12/21/2018 BAIMA, HELENE L LABEL SEWER Ot R53.83 OTHER FATIGUE 12/21/2018 FELIPE CASILLAS FACC, ALI FACP CCDS Ot I25.10 ATHSCL HEART DISEASE OF [place] CORONARY 12/21/2018 FELIPE CASILLAS FACC, ALI FACP [...] MAMMOGRAM FOR MALIGNANT NE 12/21/2018 VAN JONES MANUFACTURING ENGINEERING MANAGER Ot J44.9 CHRONIC OBSTRUCTIVE PULMONARY DISEASE, U 12/21/2018 VADNA JONSEINE Verónica MANUFACTURING ENGINEERING MANAGER Ot J45.909 UNSPECIFIED ASTHMA, UNCOMPLICATED 12/21/2018 KARENVAN VAZ MANUFACTURING ENGINEERING MANAGER Ot 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 12/21/2018 VAN JONES MANUFACTURING ENGINEERING MANAGER Ot R91.8 OTHER NONSPECIFIC ABNORMAL FINDING OF [place] 12/21/2018 VAN JONES MANUFACTURING ENGINEERING MANAGER Ot J44.9 CHRONIC OBSTRUCTIVE PULMONARY DISEASE, U 12/21/2018 VAN JONES MANUFACTURING ENGINEERING MANAGER Ot 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 12/21/2018 VAN JONES MANUFACTURING ENGINEERING MANAGER Ot R91.8 OTHER NONSPECIFIC ABNORMAL FINDING OF [place] 12/21/2018 DEJA PARKS BRAND MARKETING SPECIALIST-C Ot M17.11 UNILATERAL PRIMARY OSTEOARTHRITIS, RIGHT 12/21/2018 VAN JONES MANUFACTURING ENGINEERING MANAGER Ot I27.20 PULMONARY HYPERTENSION, UNSPECIFIED 12/21/2018 VAN JONES MANUFACTURING ENGINEERING MANAGER Ot J44.9 CHRONIC OBSTRUCTIVE PULMONARY DISEASE, U 12/21/2018 VAN JONES MANUFACTURING ENGINEERING MANAGER Ot J45.909 UNSPECIFIED ASTHMA, UNCOMPLICATED 12/21/2018 VAN JONES MANUFACTURING ENGINEERING MANAGER Ot R06.02 SHORTNESS OF BREATH 12/21/2018 MAME [...] CCDS Ot I25.10 ATHSCL HEART DISEASE OF [place] CORONARY 03/17/2019 FELIPE CASILLAS FACC, ALI FACP CCDS Ot E78.5 HYPERLIPIDEMIA, UNSPECIFIED 03/17/2019 FELIPE CASILLAS FACC, ALI FACP CCDS Ot I10 ESSENTIAL (PRIMARY) HYPERTENSION 03/17/2019 FELIPE CASILLAS FACC, ALI FACP CCDS Ot I25.10 ATHSCL HEART DISEASE OF [place] CORONARY 03/17/2019 FELIPE CASILLAS FACC, ALI FACP [...] CCDS Ot I25.10 ATHSCL HEART DISEASE OF [place] CORONARY 04/07/2019 FELIPE CASILLAS FACC, ALI FACP CCDS Ot I44.7 LEFT BUNDLE-BRANCH BLOCK, UNSPECIFIED 04/07/2019 FELIPE CASILLAS [facility], ALI [facility] CCDS Ot 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 04/07/2019 FELIPE CASILLAS [facility], [facility] CCDS Ot J44.9 CHRONIC OBSTRUCTIVE PULMONARY DISEASE, U 09/16/2019 SCOOTER TAVARES MD, Ot F32.9 MAJOR DEPRESSIVE DISORDER, SINGLE EPISOD 09/16/2019 SCOOTER TAVARES MD, Ot F41.9 ANXIETY DISORDER, UNSPECIFIED 09/16/2019 SCOOTER TAVARES MD Ot I11.0 HYPERTENSIVE HEART DISEASE WITH HEART FA 09/16/2019 SCOOTER TAVARES MD, Ot I50.9 HEART FAILURE, UNSPECIFIED 09/16/2019 SCOOTER TAVARES MD, Ot J44.1 CHRONIC OBSTRUCTIVE PULMONARY DISEASE W 09/16/2019 SCOOTER TAVARES MD, Ot J45.909 UNSPECIFIED ASTHMA, UNCOMPLICATED 09/16/2019 SCOOTER TAVARES MD Ot R06.02 SHORTNESS OF BREATH 09/16/2019 SCOOTER TAVARES MD Ot Z79.52 INTERMEDIATE (CURRENT) USE OF SYSTEMIC STER 09/16/2019 SCOOTER TAVARES MD Ot Z79.82 INTERMEDIATE (CURRENT) USE OF ASPIRIN 09/16/2019 SCOOTER TAVARES MD Ot Z88.0 ALLERGY STATUS TO PENICILLIN 09/16/2019 SCOOTER TAVARES MD, Ot Z88.2 ALLERGY STATUS TO SULFONAMIDES STATUS 09/16/2019 SCOOTER TAVARES MD, Ot Z88.8 ALLERGY STATUS TO OTH DRUG/MEDS/BIOL SUB 09/19/2019 SCOOTER TAVARES MD, Ot F32.9 MAJOR DEPRESSIVE DISORDER, SINGLE EPISOD 09/19/2019 SCOOTER TAVARES MD Ot F41.9 ANXIETY DISORDER, UNSPECIFIED 09/19/2019 SCOOTER TAVARES MD Ot I11.0 HYPERTENSIVE HEART DISEASE WITH HEART FA 09/19/2019 SCOOTER TAVARES MD, Ot I50.9 HEART FAILURE, UNSPECIFIED 09/19/2019 SCOOTER TAVARES MD Ot J44.1 CHRONIC OBSTRUCTIVE PULMONARY DISEASE W 09/19/2019 SCOOTER TAVARES MD Ot J45.909 UNSPECIFIED ASTHMA, UNCOMPLICATED 09/19/2019 SCOOTER TAVARES MD Ot R06.02 SHORTNESS OF BREATH 09/19/2019 SCOOTER TAVARES MD Ot Z79.52 INTERMEDIATE (CURRENT) USE OF SYSTEMIC STER 09/19/2019 SCOOTER TAVARES MD Ot Z79.82 INTERMEDIATE (CURRENT) USE OF ASPIRIN 09/19/2019 SCOOTER TAVARES MD, Ot Z88.0 ALLERGY STATUS TO PENICILLIN 09/19/2019 SCOOTER TAVARES MD, Ot Z88.2 ALLERGY STATUS TO SULFONAMIDES STATUS 09/19/2019 SCOOTER TAVARES MD, Ot Z88.8 ALLERGY STATUS TO OTH DRUG/MEDS/BIOL SUB 09/22/2019 DORYS MOISESJanis CRONIN Ot V76.1 2 OTH SCREEN MAMMO-MALIGN NEOPLASM OF [place] 09/22/2019 KIM ROCA MD Ot 715. 31 LOC OSTEOARTH NOS-SHLDER 09/22/2019 KIM ROCA MD Ot 721. 0 CERVICAL SPONDYLOSIS 09/22/2019 KIM ROCA MD Ot M19. 90 UNSPECIFIED OSTEOARTHRITIS, UNSPECIFIED 09/22/2019 KIM ROCA MD Ot M47.812 SPONDYLOSIS W/O MYELOPATHY OR RADICULOPA 09/22/2019 MAME GIRARD DO Ot N81.9 FEMALE GENITAL PROLAPSE, UNSPECIFIED 09/22/2019 MAME GIRARD DO Ot R10.2 PELVIC AND PERINEAL PAIN 09/22/2019 GELLENDER DO, SHYLA Lazcano Ot M79.604 PAIN IN RIGHT LEG 09/22/2019 GELLENDER DO, SHYLA Lazcano Ot R06.02 SHORTNESS OF BREATH 09/22/2019 GELLENDER DO, SHYLA Lazcano Ot R53.83 OTHER FATIGUE 09/22/2019 GELLENDER DO, SHYLA Lazcano Ot R06.02 SHORTNESS OF BREATH 09/22/2019 GELLENDER DO, SHYLA Lazcano Ot R53.83 OTHER FATIGUE 09/22/2019 BAIHELENE LUU LABEL SEWER Ot E78.5 HYPERLIPIDEMIA, UNSPECIFIED 09/22/2019 HELENE TEJEDA LABEL SEWER Ot I 10 ESSENTIAL (PRIMARY) HYPERTENSION 09/22/2019 HELENE TEJEDA LABEL SEWER Ot I25.10 ATHSCL HEART DISEASE OF [place] CORONARY 09/22/2019 BAIMA, HELENE L LABEL SEWER Ot J84.10 PULMONARY FIBROSIS, UNSPECIFIED 09/22/2019 BAIMA, HELENE L LABEL SEWER Ot R06.00 DYSPNEA, UNSPECIFIED 09/22/2019 BAIMA, HELENE L LABEL SEWER Ot R53.83 OTHER FATIGUE 09/22/2019 BAIMA, HELENE L LABEL SEWER Ot E78.4 OTHER HYPERLIPIDEMIA 09/22/2019 BAIMA, HELENE L LABEL SEWER Ot I 10 ESSENTIAL (PRIMARY) HYPERTENSION 09/22/2019 BAIMA, HELENE L LABEL SEWER Ot I25.10 ATHSCL HEART DISEASE OF [place] CORONARY 09/22/2019 BAIMA, HELENE L LABEL SEWER Ot I44.7 LEFT BUNDLE-BRANCH BLOCK, UNSPECIFIED 09/22/2019 BAIMA, HELENE L LABEL SEWER Ot R06.09 OTHER FORMS OF DYSPNEA 09/22/2019 BAIMA, HELENE L LABEL SEWER Ot R53.83 OTHER FATIGUE 09/22/2019 BAIMA, HELENE L LABEL SEWER Ot E78.4 OTHER HYPERLIPIDEMIA 09/22/2019 BAIMA, HELENE L LABEL SEWER Ot I 10 ESSENTIAL (PRIMARY) HYPERTENSION 09/22/2019 BAIMA, HELENE L LABEL SEWER Ot I25.10 ATHSCL HEART DISEASE OF [place] CORONARY 09/22/2019 BAIMA, HELENE L LABEL SEWER Ot I44.7 LEFT BUNDLE-BRANCH BLOCK, UNSPECIFIED 09/22/2019 BAIMA, HELENE L LABEL SEWER Ot R06.09 OTHER FORMS OF DYSPNEA 09/22/2019 BAIMA, HELENE L LABEL SEWER Ot R53.83 OTHER FATIGUE 09/22/2019 FELIPE CASILLAS FAC, ALI FACP CCDS Ot I25.10 ATHSCL HEART DISEASE OF [place] CORONARY 09/22/2019 FELIPE CASILLAS FAC, ALI FACP CCDS Ot J43.8 OTHER EMPHYSEMA 09/22/2019 FELIPE CASILLAS FAC, ALI FACP CCDS Ot 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 8 OTHER EMPHYSEMA 09/22/2019 CARISSA PEDRAZA ANA LAURA Dayne Ot L93. 2 OTHER LOCAL LUPUS ERYTHEMATOSUS 09/22/2019 CARISSA ANA LAURA PEDRAZA Ot R06. 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 09/22/2019 KAREN, VAN E MANUFACTURING ENGINEERING MANAGER Ot R91.8 OTHER NONSPECIFIC ABNORMAL FINDING OF [place] 09/22/2019 KAREN, VAN E MANUFACTURING ENGINEERING MANAGER Ot J44.9 CHRONIC OBSTRUCTIVE PULMONARY DISEASE, U 09/22/2019 KAREN, VAN E MANUFACTURING ENGINEERING MANAGER Ot 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 09/22/2019 KAREN, VAN E MANUFACTURING ENGINEERING MANAGER Ot R91.8 OTHER NONSPECIFIC ABNORMAL FINDING OF [place] 09/22/2019 CHARLY DEJA BRAND MARKETING SPECIALIST-C Ot M17.11 UNILATERAL PRIMARY OSTEOARTHRITIS, RIGHT 09/22/2019 KAREN, VAN E MANUFACTURING ENGINEERING MANAGER Ot I27.20 PULMONARY HYPERTENSION, UNSPECIFIED 09/22/2019 KAREN, VAN E MANUFACTURING ENGINEERING MANAGER Ot J44.9 CHRONIC OBSTRUCTIVE PULMONARY DISEASE, U 09/22/2019 KAREN, VAN E MANUFACTURING ENGINEERING MANAGER Ot J45.909 UNSPECIFIED ASTHMA, UNCOMPLICATED 09/22/2019 KAREN, VAN E MANUFACTURING ENGINEERING MANAGER Ot R06.02 SHORTNESS OF BREATH 09/22/2019 MAME GIRARD DO Ot Z12.3 1 ENCNTR SCREEN MAMMOGRAM FOR MALIGNANT NE 09/22/2019 GELLENDER DO, SHYLA Lazcano Ot K59.00 CONSTIPATION, UNSPECIFIED 09/22/2019 GELLENDER DO, SHYLA A Ot K63.89 OTHER SPECIFIED DISEASES OF INTESTINE 09/22/2019 GELLENDER DO, SHYLA A Ot N28.9 DISORDER OF KIDNEY AND URETER, UNSPECIFI 09/22/2019 FELIPE CASILLAS FAC, ALI FACP CCDS Ot E78.5 HYPERLIPIDEMIA, UNSPECIFIED 09/22/2019 FELIPE CASILLAS FACC, ALI FACP CCDS Ot I10 ESSENTIAL (PRIMARY) HYPERTENSION 09/22/2019 FELIPE ROBERTS, ALI FACP CCDS Ot R06.02 SHORTNESS OF BREATH 09/22/2019 MAME GIRARD DO Ot Z12.3 1 ENCNTR SCREEN MAMMOGRAM FOR MALIGNANT NE 09/22/2019 ADEN REINIER PEDRAZA Medina Ot R10.816 EPIGASTRIC ABDOMINAL TENDERNESS 09/22/2019 [facility] Ot R10.816 EPIGASTRIC ABDOMINAL TENDERNESS 09/22/2019 VAN JONES MANUFACTURING ENGINEERING MANAGER Ot I27.20 PULMONARY HYPERTENSION, UNSPECIFIED 09/22/2019 [employer]INEERING MANAGER Ot J43.9 EMPHYSEMA, UNSPECIFIED 09/22/2019 [employer]INEERING MANAGER Ot R91.8 OTHER NONSPECIFIC ABNORMAL FINDING OF [place] 09/22/2019 FELIPE CASILLAS [facility], ALI FACP CCDS Ot E78.5 HYPERLIPIDEMIA, UNSPECIFIED 09/22/2019 FELIPE ROBERTS, ALI FACP CCDS Ot I10 ESSENTIAL (PRIMARY) HYPERTENSION 09/22/2019 FELIPE CASILLAS [facility], ALI FACP CCDS Ot I25.10 ATHSCL HEART DISEASE OF [place] CORONARY 09/22/2019 FELIPE CASILLAS [facility], ALI FACP CCDS Ot I44.7 LEFT BUNDLE-BRANCH BLOCK, UNSPECIFIED 09/22/2019 FELIPE CASILLAS [facility], ALI FACP CCDS Ot 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 09/22/2019 FELIPE CASILLAS [facility], ALI FACP CCDS Ot J44.9 CHRONIC OBSTRUCTIVE PULMONARY DISEASE, U Procedures Code Description Performed By Per [facility] On 59.79 URIN INCONTIN REPAIR NEC 04/26/2006 [...] rheumatoid factor measurement (units/v olume) NEGATIVE NEGATIVE [id number] - 08/25/16 12:01 Screening antinuclear antibody (ADRIANO) assay by enzyme i mmunoassay Positive <1:80 Anaplasma phagocytophilum IgG ab [titer] in serum <1:80 Serum nuclear antibody pattern interpretation Homo geneous NRG IMMUNOGLOBULIN IGE - 08/25/16 12:01 Serum or plasma IgE antibody detection 21.1 NR IgE measurement (mass/volume) See Footnote BANNER Automated blood complete blood count (he mogram) [...] blood oxygen saturation measurement 69 % 94-100 [id number] - 01/31/18 15:18 Serum or plasma urea [...] aureus (MRSA) scr eening culture NEG NRG Complete blood count (CBC) with automate d white blood cell (WBC) differential - 09/16/19 11:00 Blood leukocytes automated count (number/volume) 9.3 10*3/uL 4.3-11.0 Blood erythrocytes automated count (number/volume) 4.70 10*6/uL 4.35-5.85 Venous blood hemoglobin measurement (mass/volume) [...] 10.0- 14.5 Automated blood platelet count (count/volume) 349 10*3/uL 130-400 Automated blood platelet mean volume measurement 9.9 [foz_us] 7.4-10.4 Automated blood neutrophils/100 leukocytes 54 % 42-75 Automated blood lymphocytes/100 leukocytes 31 % 12-44 Blood monocytes/100 leukocytes 11 % 0-12 Automated blood eosinophils/100 leukocytes 4 % 0-10 Automated blood basophils/100 leukocytes 0 % 0-10 Blood neutrophils automated count (number/volume) 5.0 10*3 1.8-7.8 Blood lymphocytes automated count (number/volume) 2.9 10*3 1.0-4.0 Blood monocytes automated count (number/volume) 1. 0 10*3 0.0-1.0 Automated eosinophil count 0.4 10*3/uL 0 .0-0.3 Automated blood basophil count (count/volume) 0.0 10*3/uL 0.0-0.1 Comprehensive metabolic panel - 09/16/19 11:00 Serum or plasma sodium measurement (moles/volume) 136 mmol/L 135-145 Serum or plasma potassium measurement (moles/volume) 3.9 mmol/L 3.6-5.0 Serum or plasma chloride measurement (moles/volume) 102 mmol/L 98-107 Carbon dioxide 23 mmol/L 21-32 Serum or plasma anion gap determination (moles/volume) 11 mmol/L 5-14 Serum or plasma urea nitrogen measurement (mass/volume ) 13 mg/dL 7-18 Serum or plasma creatinine measurement (mass/volume) 0.94 mg/dL 0.60-1.30 Serum or plasma urea nitrogen/creatinine mass ratio 14 NRG Serum or plasma creatinine measurement w ith calculation of estimated glomerular filtration rate 57 NRG Serum or plasma glucose measurement (mass/volume) 125 mg/dL 70-105 Serum or plasma calcium measurement (mass/volume) 9.5 mg/dL 8.5-10.1 Serum or plasma total bilirubin measurement (mass/volu me) 0.6 mg/dL 0.1-1.0 Serum or plasma alkaline phosphatase saritha surement (enzymatic activity/volume) 49 U/L 40-136 Serum or plasma aspartate aminotransfera se measurement (enzymatic activity/volume) 28 U/L 5-34 Serum or plasma alanine aminotransferase measurement (enzymatic activity/volume) 23 U/L 0-55 Serum or plasma protein measurement (mass/volume) 8.4 g/dL 6.4-8.2 Serum or plasma albumin measurement (mass/volume) 4.1 g/dL 3.2-4.5 CALCIUM CORRECTED 9.4 mg/dL 8.5-10.1 Serum or plasma C reactive protein measu rement (mass/volume) - 09/16/19 11:00 Serum or plasma C reactive protein measurement (mass/v olume) 0.50 mg/dL 0.00-0.50 Serum or plasma lithium measurement (mol es/volume) - 09/16/19 11:00 BNP PT < 10.0 <100.0 Complete blood count (CBC) with automate d white blood cell (WBC) differential - 09/27/19 21:30 Blood leukocytes automated count (number/volume) 11.5 10*3/uL 4.3-11.0 Blood erythrocytes automated count (number/volume) 4.52 10*6/uL 4.35-5.85 Venous blood hemoglobin measurement (mass/volume) 13.0 g/dL 11.5-16.0 Blood hematocrit (volume fraction) 40 % 35-52 Automated erythrocyte mean corpuscular volume 88 [ foz_us] 80-99 Automated erythrocyte mean corpuscular h emoglobin (mass per erythrocyte) 29 pg 25-34 Automated erythrocyte mean corpuscular h emoglobin concentration measurement (mass/volume) 33 g/dL 32-36 Automated erythrocyte distribution width ratio 13. 7 % 10.0- 14.5 Automated blood platelet count (count/volume) 323 10*3/uL 130-400 Automated blood platelet mean volume measurement 10.1 [foz_us] 7.4-10.4 Automated blood neutrophils/100 leukocytes 52 % 42-75 Automated blood lymphocytes/100 leukocytes 35 % 12-44 Blood monocytes/100 leukocytes 10 % 0-12 Automated blood eosinophils/100 leukocytes 3 % 0-10 Automated blood basophils/100 leukocytes 0 % 0-10 Blood neutrophils automated count (number/volume) 6.0 10*3 1.8-7.8 Blood lymphocytes automated count (number/volume) 4.0 10*3 1.0-4.0 Blood monocytes automated count (number/volume) 1. 1 10*3 0.0-1.0 Automated eosinophil count 0.3 10*3/uL 0 .0-0.3 Automated blood basophil count (count/volume) 0.0 10*3/uL 0.0-0.1 Whole blood basic metabolic panel - 09/10 10/29 21:30 Serum or plasma sodium measurement (moles/volume) 137 mmol/L 135-145 Serum or plasma potassium measurement (moles/volume) 4.1 mmol/L 3.6-5.0 Serum or plasma chloride measurement (moles/volume) 102 mmol/L 98-107 Carbon dioxide 24 mmol/L 21-32 Serum or plasma anion gap determination (moles/volume) 11 mmol/L 5-14 Serum or plasma urea nitrogen measurement (mass/volume ) 11 mg/dL 7-18 Serum or plasma creatinine measurement (mass/volume) 0.77 mg/dL 0.60-1.30 Serum or plasma urea nitrogen/creatinine mass ratio 14 NRG Serum or plasma creatinine measurement w ith calculation of estimated glomerular filtration rate > NRG Serum or plasma glucose measurement (mass/volume) 100 mg/dL 70-105 Serum or plasma calcium measurement (mass/volume) 9.7 mg/dL 8.5-10.1 Serum or plasma lithium measurement (mol es/volume) - 09/27/19 21:30 BNP PT < 10.0 <100.0 Arterial blood gas measurement - 0 21:44 Blood pCO2 39 mm[Hg] 35-45 Blood pO2 49 mm[Hg] 79-93 Arterial blood bicarbonate measurement (moles/volume) 25 mmol/L 23-27 Arterial blood base excess by calculation 1.5 mmol /L -2.5-2.5 Arterial blood oxygen saturation measurement 85 % 94-100 * Inhaled oxygen flow rate ROOM AIR NRG Arterial blood pH measurement with patient temperature correction 7.43 7.37-7.43 Arterial blood carbon dioxide, total measurement (mole s/volume) 26.6 mmol/L 21.0-31.0 Body site RT RADIAL NRG Assessment of wrist artery patency prior to arterial p uncture YES-POS NRG Setting of ventilation mode NO NR G Measurement of body temperature 37.0 NRG Encounters ACCT No. Visit Date/Time Discharge Status Pt. Type Provider Facility Loc./Unit Complaint [id number] 06/21/2019 15:15:00 06/21/2019 23:59:5 9 CLS Outpatient ANGELINA CASILLAS, [facility] DENTAL [id number] 09/27/2019 20:46:00 22:59:00 DIS Emergency SCOTTIE COLVIN APRN [facility] ER SOB/HX COPD AND ASTHMA [id number] 09/16/2019 10:33:00 13:13:00 DIS Emergency SCOOTER TAVARES MD [facility] ER SOA [id number] 03/15/2019 13:42:00 23:59:59 CLS Outpatient FELIPE CASILLAS FACC, TRISHA VASQUEZ CC DS [facility] LAB CAD [id number] 01/25/2019 12:30:00 23:59:59 CLS Preadmit VAN JONES APRN [facility] RT SOB,COPD,PULMON MIRTHA HTN [id number] 12/21/2018 10:44:00 23:59:59 CLS Outpatient VAN JONES APRN [facility] RAD SOB [id number] 12/08/2018 09:18:00 14:45:00 DIS Outpatient REINIER ADEN DO [facility] SDC BILIARY DYSKINESIA [id number] 11/29/2018 06:32:00 15:32:00 DIS Outpatient REINIER ADEN DO [facility] PREOP BILIARY DYSKINESIA [id number] 11/21/2018 12:14:00 23:59:59 CLS Outpatient REINIER ADEN DO [facility] CARD EPIGASTRIC ABD TENDERNE SS [id number] 11/02/2018 15:49:00 23:59:59 CLS Preadmit VAN JONES APRN [facility] RAD SOB [id number] 11/01/2018 08:11:00 23:59:59 CLS Outpatient REINIER ADEN DO [facility] RAD EPIGASTRIC ABD TENDERNE SS [id number] 10/11/2018 08:54:00 11:15:00 DIS Outpatient REINIER ADEN DO [facility] ENDO CHANGE IN BOWELS/BRIGHT RED BLOOD IN STOOLS/GERD [id number] 10/05/2018 13:30:00 14:02:00 DIS Outpatient REINIER ADEN DO [facility] PREOP COLONOSCOPY/EGD [id number] 09/26/2018 08:41:00 23:59:59 CLS Outpatient MAME GIRARD DO [facility] RAD SCREENING [id number] 07/25/2018 08:12:00 04/15/2 019 23:59:59 CLS Outpatient FELIPE CASILLAS FACC, TRISHA VASQUEZ CC DS [facility] LAB SOB,HYPERLI PIDEMIA [id number] 02/01/2018 07:59:00 23:59:59 CLS Outpatient SHARDALINDSAY SHYLA Jaleesa [facility] RAD ABDOMINAL PAIN BLOATING [id number] 01/31/2018 15:11:00 23:59:59 CLS Outpatient SHYLA WALLACE DO [facility] LAB RENAL INSUFF [id number] 09/23/2017 09:16:00 23:59:59 CLS Outpatient MAME GIRARD DO [facility] RAD SCREENING [id number] 09/20/2017 09:41:00 23:59:59 CLS Outpatient VAN JONES APRN [facility] RAD COPD J43.8 [id number] 04/13/2017 13:00:00 23:59:59 CLS Preadmit VAN JONES MANUFACTURING ENGINEERING MANAGER [facility] PUL COPD J43.8 [id number] 02/16/2017 10:00:00 018 00:01:00 DIS Outpatient VAN JONES APRN [facility] PUL COPD J43.8 [id number] 03/13/2017 16:47:00 23:59:59 CLS Outpatient DEJA PARKS [facility] RAD M25.561, [id number] 01/07/2017 10:00:00 00:01:00 DIS Outpatient VAN JONES MANUFACTURING ENGINEERING MANAGER [facility] PUL COPD J43.8 [id number] 11/17/2016 07:06:00 14:00:00 DIS Outpatient FELIPE CASILLAS FACC, TRISHA VASQUEZ CC DS [facility] CATH SOB,ANGINA, CAD,FATIGUE [id number] 10/06/2016 12:34:00 06/27/2 017 23:59:59 CLS Outpatient MAME GIRARD DO [facility] RAD SCREENING Z12.31 [id number] 10/06/2016 12:32:00 23:59:59 CLS Outpatient VAN JONES APRN [facility] RAD UIP J84.112 [id number] 08/25/2016 11:37:00 23:59:59 CLS Outpatient ANA LAURA FERRER DO [facility] LAB COPD,SOB [id number] 08/13/2016 11:31:00 23:59:59 CLS Outpatient SHYLA WALLACE DO [facility] LAB RESPIRATORY INF ,COUGH CONGESTION [id number] 02/24/2016 10:00:00 23:59:59 CLS Outpatient FELIPE CASILLAS FACC, TRISHA VASQUEZ CC DS [facility] LAB SOB,CAD,DATER ASSEMBLER D,UIP [id number] 01/23/2016 08:09:00 23:59:59 CLS Outpatient HELENE TEJEDA [facility] CARD DIEZ,CAD,FATIGUE [id number] 01/22/2016 07:06:00 23:59:59 CLS Outpatient HELENE TEJEDA [facility] RAD DIEZ,FATIGUE,CAD,HTN,HLP,LEFT BUNDLE BRANCH BLOCK [id number] 01/17/2016 12:56:00 23:59:59 CLS Outpatient HELENE TEJEDA [facility] LAB DIEZ,CAD,HTN,HLP ,FATIGUE [id number] 01/14/2016 10:15:00 23:59:59 CLS Outpatient SHYLA WALLACE DO [facility] CARD SOB,TIRED [id number] 01/08/2016 16:19:00 18:10:00 DIS Emergency GILLIAN DE PAZ DO [facility] ER CP [id number] 01/07/2016 08:35:00 23:59:59 CLS Outpatient SHYLA WALLACE DO [facility] RAD SOB,TIRED [id number] 10/03/2015 15:00:00 23:59:59 CLS Outpatient SHYLA WALLACE DO [facility] RAD RIGHT CALF PAIN GETTING WORSE [id number] 02/20/2015 12:43:00 23:59:59 CLS Outpatient MAME GIRARD DO Kelly [facility] RAD PELVIC PAIN [id number] 12/08/2014 21:00:00 00:59:00 DIS Emergency SCOOTER TAVARES MD [facility] ER EPIGASTRIC PAIN ABDOMINAL PAIN [id number] 12/06/2014 13:17:00 23:59:59 CLS Outpatient KIM ROCA MD [facility] RAD CERVICAL PAIN [id number] 09/12/2014 10:24:00 23:59:59 CLS Outpatient MOISES SAUL [facility] RAD SCREENING [id number] 01/31/2014 13:03:00 23:59:59 CLS Outpatient FELIPE CASILLAS FACC, TRISHA VASUQEZ CC DS [facility] CARD HUSAMBB,SOB [id number] 01/30/2014 11:38:00 16:50:00 DIS Outpatient REINIER ADEN DO [facility] SDC SCREENING;REFLUX [id number] 01/25/2014 07:13:00 23:59:59 CLS Outpatient FELIPE CASILLAS FACC, TRISHA VASQUEZ CC DS [facility] CARD LBBB,SOB,HT N,HLP [id number] 01/24/2014 07:20:00 23:59:59 CLS Outpatient REINIER ADEN DO [facility] PREOP SCREENING;REFLUX [id number] 01/05/2014 08:02:00 23:59:59 CLS Outpatient SHYLA WALLACE DO [facility] RAD DIARRHEA,ABD DI SCOMFORT [id number] 01/02/2014 09:29:00 23:59:59 CLS Outpatient SHYLA WALLACE DO [facility] CARD ABDOMINAL PAIN RIGHT UPPER QUAD [id number] 12/21/2013 08:40:00 23:59:59 CLS Outpatient SHYLA WALLACE DO [facility] RAD RUQ PAIN [id number] 09/30/2013 13:36:00 23:59:59 CLS Outpatient RIDJEANMARIE BOLDEN MANUFACTURING ENGINEERING MANAGER [facility] QUICK POSSIBLE UTI [id number] 08/14/2013 10:10:00 23:59:59 CLS Outpatient MAME GIRARD DO Kelly [facility] RAD SCREENING [id number] 07/05/2013 14:23:00 23:59:59 CLS Outpatient SHYLA WALLACE DO [facility] RAD SOB [id number] 05/24/2013 08:11:00 23:59:59 CLS Outpatient HELENE TEJEDA [facility] LAB CAD,HYPERLIPIDE TANIA,DIGOXIN TX [id number] 03/21/2013 20:57:00 06:55:00 DIS Outpatient ANA LAURA FERRER DO [facility] SLEEP OA,SNORING,ARRHYTHMIAS,HTN,ISCHEMIC HEART DISEASE [id number] 03/01/2013 12:52:00 23:59:59 CLS Outpatient ANA LAURA FERRER DO [facility] RT EXCESSIVE SLEEPINESS,HT N,SOB [id number] 02/16/2013 07:00:00 23:59:59 CLS Outpatient HELENE TEJEDA [facility] RAD CAD,HTN [id number] 02/09/2013 08:02:00 23:59:59 CLS Outpatient HLEENE TEJEDA Tab CRONIN [facility] CARD CAD,HTN [id number] 09/19/2012 06:52:00 013 23:59:59 CLS Outpatient HELENE TEJEDAP [facility] LAB HYPERLIPIDEMIA [id number] 08/09/2012 09:03:00 013 23:59:59 CLS Outpatient MAME GIRARD DO Kelly [facility] RAD SCREENING [id number] 04/28/2017 17:01:00 Document Registration [id number] 04/28/2017 16:33:00 Document Registration [id number] 04/28/2017 16:33:00 Document Registration [id number] 04/28/2017 16:33:00 Document Registration [id number] 04/28/2017 16:33:00 Document Registration [id number] 04/28/2017 16:33:00 Document Registration [id number] 03/21/2014 14:11:00 Document Registration [id number] 2012 08:33:00 Document Registration [id number] 08/02/2012 11:28:00 Document Registration [id number] 02/08/2012 08:45:00 Document Registration [id number] 08/14/2011 12:20:00 Document Registration [id number] 08/07/2011 10:21:00 Document Registration [id number] 07/06/2011 08:47:00 Document Registration [id number] 02/09/2011 09:03:00 Document Registration [id number] 11/27/2010 08:45:00 Document Registration [id number] 10/28/2010 04:52:00 Document Registration [id number] 10/14/2010 10:48:00 Document Registration [id number] 10/07/2010 10:30:00 Document Registration [id number] 10/01/2010 10:00:00 Document Registration [id number] 10/01/2010 10:00:00 Document Registration [id number] 09/26/2010 09:45:00 Document Registration [id number] 09/19/2010 13:00:00 Document Registration [id number] 09/15/2010 05:51:00 Document Registration [id number] 09/11/2010 13:02:00 Document Registration [id number] 09/04/2010 08:13:00 Document Registration [id number] 2010 10:10:00 Document Registration [id number] 07/04/2010 13:09:00 Document Registration [id number] 05/09/2010 08:21:00 Document Registration [id number] 04/09/2010 07:39:00 Document Registration [id number] 02/22/2010 12:45:00 Document Registration [id number] 11/05/2009 08:52:00 Document Registration [id number] 08/01/2009 09:00:00 Document Registration [id number] 06/12/2009 08:57:00 Document Registration [id number] 06/03/2009 11:38:00 Document Registration [id number] 05/24/2009 15:09:00 Document Registration [id number] 03/14/2009 08:15:00 Document Registration [id number] 08/15/2008 07:36:00 Document Registration [id number] 06/26/2008 08:46:00 Document Registration [id number] 06/12/2008 09:33:00 Document Registration [id number] 02/15/2008 08:54:00 Document Registration [id number] 11/15/2007 15:06:00 Document Registration [id number] 08/22/2007 08:20:00 Document Registration [id number] 06/15/2007 10:18:00 Document Registration [id number] 06/09/2007 10:25:00 Document Registration [id number] 04/18/2007 08:49:00 Document Registration [id number] 01/26/2007 09:44:00 Document Registration [id number] 07/06/2006 09:50:00 Document Registration [id number] 05/19/2006 10:00:00 Document Registration [id number] 04/26/2006 08:11:00 Document Registration [id number] 04/22/2006 08:42:00 Document Registration [id number] 04/07/2006 06:27:00 Document Registration [id number] 03/16/2006 12:35:00 Document Registration [id number] 12/15/2005 09:55:00 Document Registration [id number] 09/28/2005 09:09:00 Document Registration [id number] 09/22/2005 08:34:00 Document Registration [id number] 09/15/2005 10:00:00 Document Registration [id number] 08/28/2005 11:29:00 Document Registration [id number] 06/25/2005 14:25:00 Document Registration [id number] 05/13/2005 09:23:00 Document Registration
--- NOTE | 2019-09-28 07:14 | Diagnostic Imaging Report ---
INDICATION: Chest pain. Comparison with 09/16/2019. FINDINGS: Portable chest. Chronic interstitial changes are again noted more severe on the left. The lungs are well-aerated. Heart upper limits of normal. No evidence of pulmonary edema. No pneumothorax or pleural effusion. No bony abnormalities. IMPRESSION: Findings of chronic interstitial infiltrates more severe on the left again demonstrated without significant change since previous exam. Dictated by: Dictated on workstation # [id number]
== END 2019-09-27 22:59 | disposition home or self-care (01) ==
LOC: EDUNIT# 20:45 → ER 20:46
DX: R06.00 Dyspnea, unspecified (principal); J44.9 Chronic obstructive pulmonary disease, unspecified; I11.0 Hypertensive heart disease with heart failure; I50.9 Heart failure, unspecified; F41.9 Anxiety disorder, unspecified; F32.9 Major depressive disorder, single episode, unspecified; Z88.0 Allergy status to penicillin; Z88.2 Allergy status to sulfonamides; Z88.8 Allergy status to other drugs, medicaments and biological substances; Z79.82 Long term (current) use of aspirin; Z79.52 Long term (current) use of systemic steroids; Z20.828 Contact with and (suspected) exposure to other viral communicable diseases
CPT/HCPCS: 71045; 80048; 82805; 83880; 85025; 93005; 99285; U0002; 36415; 87635

== ENCOUNTER → 2019-11-27 | Outpatient (CLI) | payer MEDICARE, MEDICAID ==
--- NOTE | 2019-11-27 14:35 | Diagnostic Imaging Report ---
INDICATION: Routine screening. COMPARISON: 09/26/2018 and 09/23/2017. TECHNIQUE: 2D and 3D bilateral screening mammography was performed with CAD. FINDINGS: Scattered fibroglandular densities are identified bilaterally. The parenchymal pattern is stable. No dominant mass or malignant appearing microcalcifications are identified. The axillae are unremarkable. IMPRESSION: No mammographic features suspicious for malignancy are identified. ACR BI-RADS Category 1: Negative. Result letter will be mailed to the patient. Note: At least 10% of breast cancer is not imaged by mammography. Dictated by: Dictated on workstation # [id number]
== END ==
LOC: RAD 08:31
PROVIDERS: ATTEND Obstetrics & Gynecology
DX: Z12.31 Encounter for screening mammogram for malignant neoplasm of breast (principal)
CPT/HCPCS: 77063; 77067

== ENCOUNTER → 2020-10-07 | Outpatient (CLI) | payer MEDICARE, MEDICAID ==
[~2020-10-07] MED LIST changes: -CETI10TA21 PO; +CETI10TA49 PO; +RT-ALBUTEROL SULF 2.5 MG/3 ML PRE-MIX VIAL INH ONE; +SERT-414 PO; -SERT100T8 PO
[2020-10-07 09:06] LABS: CREATININE SERUM 0.9 MG/DL (0.60-1.30)
--- NOTE | 2020-10-07 15:27 | Diagnostic Imaging Report ---
PROCEDURE: CT chest with contrast only. TECHNIQUE: Multiple contiguous axial images were obtained through the chest after administration of intravenous contrast. Auto Exposure Controls were utilized during the CT exam to meet ALARA standards for radiation dose reduction. INDICATION: Chest pain and shortness of breath. COMPARISON is made with a prior study from 12/21/2018. There is a 5 mm nodule in the right upper lobe which is stable. There is a 4 mm nodule anterior to the major fissure on the right which is stable. There is a 4 mm nodule in the right middle lobe laterally which is stable. There is interstitial fibrosis similar to the prior study. No acute infiltrate is seen. No new lung nodules have developed in the interval. The mediastinal lymph nodes are stable in appearance. There is no hilar lymphadenopathy. There is no effusion or pneumothorax. No suspicious bony lesions are seen. IMPRESSION: There are several sub-centimeter pulmonary nodules present. There is interstitial lung disease present. There is no change from 12/21/2018. Dictated by: Dictated on workstation # [id number]
== END ==
LOC: RT 08:00
PROVIDERS: ATTEND Nurse Practitioner Family
DX: R91.8 Other nonspecific abnormal finding of lung field (principal)
CPT/HCPCS: 36415; 71260; 82565; 84520; 94060; 94726; 94729

== ENCOUNTER 2020-12-02 10:22 | Outpatient (CLI) | payer MEDICARE, MEDICAID ==
[~2020-12-02 10:22] MED LIST changes: -RT-ALBUTEROL SULF 2.5 MG/3 ML PRE-MIX VIAL INH ONE
== END 2020-12-02 10:50 ==
LOC: SLEEP 10:22
PROVIDERS: ATTEND Nurse Practitioner Family
DX: G47.30 Sleep apnea, unspecified (principal); G47.50 Parasomnia, unspecified; G47.10 Hypersomnia, unspecified
CPT/HCPCS: G0399

== ENCOUNTER → 2020-12-09 | Outpatient (CLI) | payer MEDICARE, MEDICAID ==
[~2020-12-09] MED LIST changes: +CATHETER FLUSH 10 ML SYR IV PRN; +HOLD METFORMIN - RECEIVED CONTRAST 20 ML VIAL IV SCH; +IOHEXOL 350 MG/ML 100 ML (OMNIPAQUE 350) VIAL IV ONE; +NS 100 ML (IVPB) BAG IV ONE
[2020-12-09 15:20] LABS: CREATININE SERUM 0.75 MG/DL (0.60-1.30)
--- NOTE | 2020-12-09 15:55 | Diagnostic Imaging Report ---
EXAMINATION: CT abdomen and pelvis with intravenous contrast. TECHNIQUE: Multiple contiguous axial images were obtained through the abdomen and pelvis after the uneventful administration of intravenous contrast. All CT scans use one or more of the following dose optimizing techniques: automated exposure control, MA and/or KvP adjustment based on patient size and exam type or iterative reconstruction. HISTORY: Left lower quadrant pain. COMPARISON: 02/01/2018. FINDINGS: Limited views of the lower thorax show mild fibrosis. The liver is normal without focal lesion. There is no biliary ductal dilation. Gallbladder is surgically absent. Pancreas is normal. Spleen is normal. Adrenal glands are normal. The kidneys are normal. There is no hydronephrosis. Urinary bladder is normal. Visualized bowel is normal in caliber without obstruction or inflammation. There is a new focus of epiploic appendagitis of the sigmoid colon. No free fluid or air. No abdominal or pelvic lymphadenopathy. Aorta is normal in caliber without aneurysm. There are no suspicious osseous lesions. IMPRESSION: 1. Epiploic appendagitis of the sigmoid colon. Dictated by: Dictated on workstation # [id number]
== END ==
LOC: RAD 15:15
PROVIDERS: ATTEND Family Medicine
DX: K63.89 Other specified diseases of intestine (principal)
CPT/HCPCS: 36415; 74177; 82565; 84520

== ENCOUNTER → 2020-12-30 | Outpatient (CLI) | payer MEDICARE, MEDICAID ==
[~2020-12-30] MED LIST changes: -CATHETER FLUSH 10 ML SYR IV PRN; -HOLD METFORMIN - RECEIVED CONTRAST 20 ML VIAL IV SCH; -IOHEXOL 350 MG/ML 100 ML (OMNIPAQUE 350) VIAL IV ONE; -NS 100 ML (IVPB) BAG IV ONE
--- NOTE | 2020-12-30 11:45 | Diagnostic Imaging Report ---
PROCEDURE: US PELVIC (NON OB) TECHNIQUE: Multiple real-time grayscale images were obtained over the pelvis in various projections transabdominally. INDICATION: Pelvic pain. FINDINGS: The uterus is surgically absent. The ovaries could not be visualized. There is limited distention of the urinary bladder limiting acoustical windows. No mass, fluid collection or ascites. IMPRESSION: Absent uterus, nonvisualization of the ovaries with no adnexal lesion, free fluid or fluid collection identified. Bladder was empty. IMPRESSION: Dictated by: Dictated on workstation # [id number]
== END ==
LOC: RAD 10:00
PROVIDERS: ATTEND Obstetrics & Gynecology
DX: R10.2 Pelvic and perineal pain (principal); Z90.710 Acquired absence of both cervix and uterus
CPT/HCPCS: 76856

== ENCOUNTER → 2021-01-07 | Outpatient (CLI) | payer MEDICARE, MEDICAID ==
--- NOTE | 2021-01-07 13:28 | Diagnostic Imaging Report ---
INDICATION: Routine screening. COMPARISON: 11/27/2019 and 09/26/2018. TECHNIQUE: 2D and 3D bilateral screening mammography was performed with CAD. FINDINGS: Scattered fibroglandular densities are identified bilaterally. The parenchymal pattern is stable. No mass or malignant-appearing microcalcifications are seen. The axillae are unremarkable. IMPRESSION: No mammographic features suspicious for malignancy are identified. ACR BI-RADS Category 1: Negative. Result letter will be mailed to the patient. Note: At least 10% of breast cancer is not imaged by mammography. Dictated by: Dictated on workstation # [id number]
== END ==
LOC: RAD 11:13
PROVIDERS: ATTEND Obstetrics & Gynecology
DX: Z12.31 Encounter for screening mammogram for malignant neoplasm of breast (principal)
CPT/HCPCS: 77063; 77067

== ENCOUNTER → 2021-02-13 | Outpatient (CLI) | payer MEDICARE, MEDICAID | LOC: CARD 10:00 | PROVIDERS: ATTEND Nurse Practitioner Family | DX: I34.0 Nonrheumatic mitral (valve) insufficiency (principal); J98.4 Other disorders of lung | CPT/HCPCS: 93306 ==

== ENCOUNTER 2021-03-05 14:10 | Emergency (ER) | payer MEDICARE, MEDICAID ==
[~2021-03-05] VITALS: Ht 162 cm; Wt 79.0 kg
[2021-03-05 14:59] LABS: BASOPHILS % (AUTO) 0 % (0-10); EOSINOPHILS # (AUTO) 0.3 10^3/uL (0.0-0.3); EOSINOPHILS % (AUTO) 4 % (0-10); HEMATOCRIT 39 % (35-52); HEMOGLOBIN 12.5 g/dL (11.5-16.0); LYMPHOCYTES # (AUTO) 2.4 X 10^3 (1.0-4.0); LYMPHOCYTES % (AUTO) 29 % (12-44); MEAN CORPUSCULAR HEMOGLOBIN 28 pg (25-34); MEAN CORPUSCULAR HGB CONC 32 g/dL (32-36); MEAN CORPUSCULAR VOLUME 87 fL (80-99); MEAN PLATELET VOLUME 10.2 fL (9.0-12.2); MONOCYTES # (AUTO) 0.7 X 10^3 (0.0-1.0); MONOCYTES % (AUTO) 8 % (0-12); NEUTROPHILS # (AUTO) 5.1 X 10^3 (1.8-7.8); NEUTROPHILS % (AUTO) 59 % (42-75); PLATELET COUNT 357 10^3/uL (130-400); WHITE BLOOD COUNT 8.5 10^3/uL (4.3-11.0)
[2021-03-05 15:07] LABS: ALBUMIN 4.2 GM/DL (3.2-4.5)
[2021-03-05 15:08] LABS: POTASSIUM 3.4 MMOL/L (3.6-5.0)
[2021-03-05 15:09] LABS: CALCIUM 9.6 MG/DL (8.5-10.1)
[2021-03-05 15:10] LABS: TOTAL PROTEIN 8.2 GM/DL (6.4-8.2)
[2021-03-05 15:12] LABS: BILIRUBIN,TOTAL 0.5 MG/DL (0.1-1.0); INR 0.9 (0.8-1.4); PROTHROMBIN TIME PATIENT 12.7 SEC (12.2-14.7)
[2021-03-05 15:14] LABS: CREATININE SERUM 0.92 MG/DL (0.60-1.30)
[2021-03-05] MEDS ORDERED: NS IV 1000 ML 1,000 ML IV SCH (15:15)
--- NOTE | 2021-03-05 15:18 | Diagnostic Imaging Report ---
INDICATION: Hypertension, shortness of breath. EXAMINATION: Portable chest at 3:16 PM. FINDINGS: The heart size and pulmonary vascularity are normal. The lungs are clear. There are no effusions or pneumothoraces. IMPRESSION: No acute abnormalities in the chest. Dictated by: Dictated on workstation # [id number]
--- NOTE | 2021-03-05 16:55 | ED Cardiac General ---
History of Present Illness General Chief Complaint: Respiratory Problems Stated Complaint: SOA, HIGH BP Nursing Triage Note: PT TO ROOM 4 PER W/C PT CO OF HYPERVENTILATION, LIGHTHEADEDNESS, AND HIGH AND LOW B/P. JUST DIDNT FEEL RIGHT Source: patient Exam Limitations: no limitations History of Present Illness Date Seen by Provider: Mar 05, 2021 Allergies and Home Medications Allergies Coded Allergies: Cdsmhhq-Wlb-Rdc Reductase Inhibitor (Verified Allergy, Severe, MUSCLE WEAKNESS, 11/29/18) Penicillins (Verified Allergy, Intermediate, RASH/SWELLING, 11/29/18) Sulfa (Sulfonamide Antibiotics) (Verified Allergy, Mild, RASH, 11/29/18) Patient Home Medication List Albuterol Sulfate (Ventolin Hfa) 1 Puff Puff, 2 PUFF INH TID, (Reported) Entered as Reported by: PEYMAN NETTLES on 11/29/18 1440 Aspirin (Aspirin) 81 Mg Tab.chew, 81 MG PO DAILY, (Reported) Entered as Reported by: PEYMAN NETTLES on 10/05/18 1359 Budesonide/Formoterol Fumarate (Symbicort 160-4.5 Mcg Inhaler) 10.2 Gm Hfa.aer.ad, 2 PUFF IH BID, (Reported) Entered as Reported by: PEYMAN NETTLES on 11/29/18 1440 Cetirizine HCl (Zyrtec) 10 Mg Tablet, 10 MG PO DAILY, (Reported) Entered as Reported by: PEYMAN NETTLES on 10/05/18 1352 Digoxin (Digoxin) 250 Mcg Tablet, 250 MCG PO DAILY, (Reported) Entered as Reported by: PEYMAN NETTLES on 10/05/18 1359 Docusate Sodium (Colace) 100 Mg Capsule, 100 MG PO DAILY Prescribed by: REINIER ADEN on 12/08/18 1200 Estradiol (Estradiol Tablet) 0.5 Mg Tablet, 0.5 MG PO DAILY, (Reported) Entered as Reported by: FRANCOIS HAIR on 11/17/16 0830 Furosemide (Furosemide) 40 Mg Tablet, 40 MG PO DAILY PRN for SWELLING, (Reported) Entered as Reported by: PEYMAN NETTLES on 10/05/18 1359 Hydrocodone Bit/Acetaminophen (Lortab 5 Mg Tablet) 1 Tab Tab, 1-2 TAB PO Q6H PRN for PAIN-MODERATE Prescribed by: REINIER ADEN on 12/08/18 1200 Losartan Potassium (Losartan Potassium) 50 Mg Tablet, 50 MG PO DAILY, (Reported) Entered as Reported by: PEYMAN NETTLES on 10/05/18 1352 Multivits-Min/Iron/FA/Lutein (Centrum Silver Women Tablet) 1 Each Tablet, 1 EACH PO DAILY, (Reported) Entered as Reported by: PEYMAN NETTLES on 10/05/18 1359 Omeprazole (Omeprazole) 20 Mg Tablet.dr, 20 MG PO DAILY Prescribed by: REINIER ADEN on 10/11/18 1029 Prednisone (Prednisone) 20 Mg Tab, 40 MG PO DAILY Prescribed by: SCOOTER TAVARES on 09/16/19 1306 Sertraline HCl (Sertraline HCl) 100 Mg Tablet, 100 MG PO DAILY, (Reported) Entered as Reported by: PEYMAN NETTLES on 10/05/18 1352 Past Uwcpjnv-Nfuxwc-Mjoyhx Hx Seasonal Allergies Seasonal Allergies: Yes Past Medical History Surgeries: Yes (HEMORRHOID, TOTAL KNEE REPLACEMENT--SEE VERY EXTENSIVE LIST PROVIDED BY PT) Orthopedic Respiratory: Yes (HAS "SPOTS" ON LUNGS) Asthma, COPD Cardiac: Yes (LBBB, CHF) High Cholesterol, Hypertension Neurological: No Reproductive Disorders: No Sexually Transmitted Disease: No HIV/AIDS: No Genitourinary: No Gastrointestinal: Yes Chronic Constipation, Irritable Bowel Musculoskeletal: Yes (OSTEOARTHRITIS) Arthritis Endocrine: No HEENT: Yes (GLASSES, PARTIAL DENTURES) Cancer: No Psychosocial: Yes Anxiety, Depression Integumentary: No Blood Disorders: No Adverse Reaction/Blood Tranf: No (N/A) Physical Exam Vital Signs Vital Signs - First Documented 03/05/21 14:20 Temp 36.6 Pulse 91 Resp 20 B/P (MAP) 138/71 (93) Pulse Ox 95 Capillary Refill : Less Than 3 Seconds Height, Weight, BMI Height: 5'4.00" Weight: 175lbs. 0.0oz. [id number]; 30.00 BMI Method:Stated Progress/Results/Core Measures Results/Orders Lab Results Laboratory Tests Test 03/05/21 14:30 Range/Units White Blood Count 8.5 4.3-11.0 10^3/uL Red Blood Count 4.53 3.80-5.11 10^6/uL Hemoglobin 12.5 11.5-16.0 g/dL Hematocrit 39 35-52 % Mean Corpuscular Volume 87 80-99 fL Mean Corpuscular Hemoglobin 28 25-34 pg Mean Corpuscular Hemoglobin Concent 32 32-36 g/dL Red Cell Distribution Width 14.2 10.0-14.5 % Platelet Count 357 130-400 10^3/uL Mean Platelet Volume 10.2 9.0-12.2 fL Immature Granulocyte % (Auto) 0 % Neutrophils (%) (Auto) 59 42-75 % Lymphocytes (%) (Auto) 29 12-44 % Monocytes (%) (Auto) 8 0-12 % Eosinophils (%) (Auto) 4 0-10 % Basophils (%) (Auto) 0 0-10 % Neutrophils # (Auto) 5.1 1.8-7.8 X 10^3 Lymphocytes # (Auto) 2.4 1.0-4.0 X 10^3 Monocytes # (Auto) 0.7 0.0-1.0 X 10^3 Eosinophils # (Auto) 0.3 0.0-0.3 10^3/uL Basophils # (Auto) 0.0 0.0-0.1 10^3/uL Immature Granulocyte # (Auto) 0.0 0.0-0.1 10^3/uL Prothrombin Time 12.7 12.2-14.7 SEC INR Comment 0.9 0.8-1.4 Activated Partial Thromboplast Time 35 24-35 SEC D-Dimer < 0.27 0.00-0.49 UG/ML Sodium Level 137 135-145 MMOL/L Potassium Level 3.4 L 3.6-5.0 MMOL/L Chloride Level 102 98-107 MMOL/L Carbon Dioxide Level 23 21-32 MMOL/L Anion Gap 12 5-14 MMOL/L Blood Urea Nitrogen 12 7-18 MG/DL Creatinine 0.92 0.60-1.30 MG/DL Estimat Glomerular Filtration Rate 58 BUN/Creatinine Ratio 13 Glucose Level 158 H 70-105 MG/DL Calcium Level 9.6 8.5-10.1 MG/DL Corrected Calcium 9.4 8.5-10.1 MG/DL Magnesium Level 2.0 1.6-2.4 MG/DL Total Bilirubin 0.5 0.1-1.0 MG/DL Aspartate Amino Transf (AST/SGOT) 19 5-34 U/L Alanine Aminotransferase (ALT/SGPT) 11 0-55 U/L Alkaline Phosphatase 48 40-136 U/L Myoglobin 41.8 10.0-92.0 NG/ML Troponin I < 0.028 <0.028 NG/ML B-Type Natriuretic Peptide 40.1 <100.0 PG/ML Total Protein 8.2 6.4-8.2 GM/DL Albumin 4.2 3.2-4.5 GM/DL My Orders Orders - TESSIE BECERRA MD Cbc With Automated Diff (03/05/21 14:22) Magnesium (03/05/21 14:22) Chest 1 View, Ap/Pa Only (03/05/21 14:22) Ekg Tracing (03/05/21 14:22) Comprehensive Metabolic Panel (03/05/21 14:22) Myoglobin Serum (03/05/21 14:22) Protime With Inr (03/05/21 14:22) Partial Thromboplastin Time (03/05/21 14:22) O2 (03/05/21 14:22) Monitor-Rhythm Ecg Trace Only (03/05/21 14:22) Ed Iv/Invasive Line Start (03/05/21 14:22) BNP (03/05/21 14:22) Troponin I (03/05/21 14:22) Ns Iv 1000 Ml (Sodium Chloride 0.9%) (03/05/21 15:15) Fibrin Degradation Products (03/05/21 15:44) Vital Signs/I&O 03/05/21 03/05/21 14:20 17:17 Temp 36.6 Pulse 91 72 Resp 20 18 B/P (MAP) 138/71 (93) 157/75 Pulse Ox 95 95 Blood Pressure Mean: 93 Initial ECG Impression Date: Mar 05, 2021 Initial ECG Impression Time: 14:57 Initial ECG Rate: 83 Comment Sinus rhythm with chronic and unchanged left bundle branch block. No other acute changes. Diagnostic Imaging Diagonstic Imaging: Xray Plain Films/CT/US/NM/MRI: chest Comments NAME: CARLTON SEGURA Jim [facility] REC#: [id number] PT STATUS: REG ER : 1935 PHYSICIAN: TESSIE BECERRA MD ADMIT DATE: 03/05/21/ER Signed Date of Exam:03/05/21 CHEST 1 VIEW, AP/PA ONLY INDICATION: Hypertension, shortness of breath. EXAMINATION: Portable chest at 3:16 PM. FINDINGS: The heart size and pulmonary vascularity are normal. The lungs are clear. There are no effusions or pneumothoraces. IMPRESSION: No acute abnormalities in the chest. Dictated by: Dictated on workstation # [id number] Dict: 03/05/21 1515 Trans: 03/05/211656 [id number] Interpreted by: SCOOTER BRANNON MD Electronically signed by: SCOOTER BRANNON MD 03/05/211656 Departure Impression Primary Impression: Episode of hypertension Additional Impressions: Labile blood pressure Chronic shortness of breath History of heart failure Hypovolemia Disposition: 01 HOME, SELF-CARE Condition: Improved Departure-Patient Inst. Decision time for Depature: 16:54 Referrals: SHYLA WALLACE DO (PCP/Family) Primary Care Physician Patient Instructions: High Blood Pressure (DC) Add. Discharge Instructions: Drink plenty of clear liquids to stay well-hydrated. Do not take any Lasix (furosemide) until you follow-up with Dr. Plunkett. Contact Dr. Plunkett and Dr. Wallace as soon as possible to arrange follow-up. Return to the ER if you have worsening symptoms. Call with questions or concerns. All discharge instructions reviewed with patient and/or family. Voiced understanding. TESSIE BECERRA MD Mar 05, 2021 16:55
[2021-03-05 17:17] VITALS: BP 157/75
== END 2021-03-05 17:17 | disposition home or self-care (01) ==
LOC: EDUNIT# 14:10 → ER 14:13
DX: I11.0 Hypertensive heart disease with heart failure (principal); I50.9 Heart failure, unspecified; R06.02 Shortness of breath; E86.1 Hypovolemia; J44.9 Chronic obstructive pulmonary disease, unspecified; F41.9 Anxiety disorder, unspecified; F32.9 Major depressive disorder, single episode, unspecified; R06.4 Hyperventilation; Z79.82 Long term (current) use of aspirin; Z79.891 Long term (current) use of opiate analgesic; Z79.899 Other long term (current) drug therapy
CPT/HCPCS: 36415; 71045; 80053; 83735; 83874; 83880; 84484; 85025; 85379; 85610; 85730; 93041

== ENCOUNTER 2021-03-11 09:00 | Day surgery (SDC) | payer MEDICARE, MEDICAID ==
[2021-03-11] VITALS (8 sets, daily range): BP systolic 96–161; BP diastolic 55–84
[~2021-03-11] VITALS: Ht 162.5 cm; Wt 80.3 kg
[2021-03-11 07:34] LABS: HEMATOCRIT 42 % (35-52); HEMOGLOBIN 13.1 g/dL (11.5-16.0); MEAN CORPUSCULAR HEMOGLOBIN 27 pg (25-34); MEAN CORPUSCULAR HGB CONC 32 g/dL (32-36); MEAN CORPUSCULAR VOLUME 87 fL (80-99); MEAN PLATELET VOLUME 9.9 fL (9.0-12.2); PLATELET COUNT 348 10^3/uL (130-400); WHITE BLOOD COUNT 8.4 10^3/uL (4.3-11.0)
[2021-03-11 08:02] LABS: ALBUMIN 4.1 GM/DL (3.2-4.5); BILIRUBIN,TOTAL 0.5 MG/DL (0.1-1.0); CREATININE SERUM 0.79 MG/DL (0.60-1.30); POTASSIUM 4.1 MMOL/L (3.6-5.0); TOTAL PROTEIN 8.4 GM/DL (6.4-8.2)
[~2021-03-11 09:00] MED LIST changes: +ACET325C7 PO; +HEParin (CATH LAB) 2,000 ML IV ONE; +LIDOCAINE 1% INJ 20 ML 20 ML VIAL ONE; +LOSA100T57 PO; +NS IV 1000 ML 1,000 ML IV SCH; +NS IV 1000 ML 1,000 ML ONE
[2021-03-11] MEDS ORDERED: fentaNYL INJ 100 MCG/2 ML AMP ONE (09:53)
[2021-03-11] MEDS ORDERED: MIDAZOLAM 5 MG/5 ML (VERSED) VIAL ONE (09:53)
--- NOTE | 2021-03-11 10:17 | Cardiac Procedure Note-CS/ASA ---
Pre-Procedure Note Pre-Op Procedure Note H&P Reviewed The H&P was reviewed, patient examined and no changes noted. Date H&P Reviewed: Mar 11, 2021 Time H&P Reviewed: 10:16 Conscious Sedation Pre-Proced Time 10:16 ASA Score 3 For ASA 3 and 4: Consider anesthesia and medical clearance. Also, for patients with a history of failed moderate sedation consider anesthesia. Airway Lungs Heart ASA score ASA 1: a normal healthy patient ASA 2: a patient with a mild systemic disease (mid diabetes, controlled hypertension, obesity ASA 3: a patient with a severe systemic disease that limits activity (angina, COPD, prior Myocardial infarction) ASA 4: a patient with an incapacitating disease that is a constant threat to life (CHF, renal failure) ASA 5: a moribund patient not expected to survive 24 hrs. (ruptured aneurysm) ASA 6: a declared brain- patient whose organs are being harvested. For emergent operations, add the letter E after the classification Mallampati Classification Grade 2 Sedation Plan Analgesia, Amnesia, Plan communicated to team members, Discussed options with patient/fam, Discussed risks with patient/fam The patient is an appropriate candidate to undergo the planned procedure, sedation, and anesthesia. The patient immediately re-assessed prior to indication. TRISHA WANG MD FACP [facility] Mar 11, 2021 10:17
[2021-03-11] MEDS ORDERED: PATIENT MAY USE OWN MEDS, ALL PO SCH (11:15)
[2021-03-11] MEDS ORDERED: NS IV 1000 ML 1,000 ML IV SCH (11:15)
[2021-03-11] MEDS ORDERED: ASPI-999 PO (11:20)
--- NOTE | 2021-03-11 11:24 | Discharge Inst-Cardiology ---
Discharge Inst-Cardiac Discharge Medications New Medications: Aspirin (Aspirin) 81 Mg Tab.chew 81 MG PO every other day, #50 TAB 3 Refills Continued Medications: Acetaminophen (Tylenol) 325 Mg Capsule 650 MG PO PRN PRN for PAIN-MILD (1-4), CAP Albuterol Sulfate (Ventolin Hfa) 1 Puff Puff 2 PUFF INH TID, PUFF 1 PUFF = 90 MCG Docusate Sodium (Colace) 100 Mg Capsule 100 MG PO DAILY, #30 CAP Estradiol (Estradiol Tablet) 0.5 Mg Tablet 0.5 MG PO DAILY, TAB Losartan Potassium (Losartan Potassium) 100 Mg Tablet 100 MG PO DAILY, TAB Multivits-Min/Iron/FA/Lutein (Centrum Silver Women Tablet) 1 Each Tablet 1 EACH PO DAILY, TAB Sertraline HCl (Sertraline HCl) 100 Mg Tablet 100 MG PO DAILY, TAB Discontinued Medications: Aspirin (Aspirin) 81 Mg Tab.chew 81 MG PO DAILY, TAB Furosemide (Furosemide) 40 Mg Tablet 40 MG PO DAILY PRN for SWELLING, TAB TRISHA WANG MD FACP [facility]S Mar 11, 2021 11:24
--- NOTE | 2021-03-11 11:25 | Discharge Inst-Post CATH ---
Discharge Inst-CATH/EP Post Cardiac Cath/EP D/C Inst Follow Up/Plan F/u with Dr Plunkett next week ACTIVITY * Go Home directly and rest. * Limit activity of the leg (or wrist if it was used) for 7 days including a erobics, swimming, jogging, bicycling, etc. * Restrict stair-climbing for 7 days if possible, if not, climb up with your non-cath leg, then bring together on the same step. * Avoid lifting, pushing, pulling or excessive movement of the affected extre mity for 7 days. * Customary sexual activity may be resumed after 2 days-use caution not to use a position that strains or causes pain to the affected extremity. * No driving for 24 hours. * NO SMOKING. * Avoid straining for bowel movements for 7 days. * Gentle walking on level ground is allowed. * Returning to work will depend on the type of procedure and the results. Your d octor will discuss this with you. CALL YOUR DOCTOR FOR ANY OF THE FOLLOWING: *If bleeding from the puncture site occurs- Apply gentle pressure to site with clean cloth and call your doctor or EMS. * If a knot or lump forms under the skin, increases in size, or causes pain. * If bruising appears to be worsening or moving further down your leg instead of disappearing. * Temperature above 101 F. CARE OF YOUR GROIN INCISION; * Bruising or purple discoloration of the skin near the puncture site is common. * You may shower only, no bathtub bathing for 5 days. Be careful to avoid slipping as your leg may feel stiff. * If a closure device was used on your femoral artery, please see the attached guide regarding care of the device and your leg. * Leave dressing on FOR 24 hours. CARE OF YOUR WRIST INCISION; * Bruising or purple discoloration of the skin near the puncture site is common. * You may shower. * DO NOT submerge wrist. * Leave dressing on FOR 24 hours. TRISHA PLUNKETT MD FACP [facility] Mar 11, 2021 11:25
--- NOTE | 2021-03-11 12:00 | CARDIAC CATHETERIZATION ---
DATE OF SERVICE: 03/11/2021 CARDIAC CATHETERIZATION REPORT INDICATION FOR PROCEDURE: The patient is an 85-year-old lady, who has been experiencing increasing shortness of breath. Also, recent echocardiography was indicative of mild impairment of global left ventricular systolic function. Given these new symptoms and findings, complete heart catheterization was recommended. Informed consent was obtained. DESCRIPTION OF PROCEDURE: She was brought to the cardiac catheterization laboratory in a fasting state. Right groin was prepared and draped in the usual sterile fashion. Lidocaine 1% was used for local anesthesia. Modified Seldinger technique was used to advance a 5-Gibraltarian sheath in the right femoral artery and a 7-Gibraltarian sheath in the right femoral vein. We used a 7-Gibraltarian [place]-Matthew catheter to carry out right heart catheterization and to measure oxygen saturation in the various right heart chambers. This catheter was then removed and we advanced a 5-Gibraltarian pigtail catheter through the arterial sheath and left heart catheterization was performed. This was followed by left ventricular angiography. The pigtail catheter was removed and we used 5-Gibraltarian JL4 catheter for left coronary angiography and 5-Gibraltarian JR4 catheter for right coronary angiography. Angiography of the right femoral artery was carried out through the sheath at the beginning of the procedure. At the end of this procedure, Mynx was used to achieve arterial hemostasis and manual pressure to achieve venous hemostasis. She tolerated the procedure well. HEMODYNAMICS: Mean pulmonary wedge pressure was 7 mmHg. Pulmonary arterial pressure was 29/20 with a mean of 22 mmHg. Right ventricular pressure was 33/10. Mean right atrial pressure was 6 mmHg. Left ventricular end-diastolic pressure was averaging 10 mmHg. There was no significant pressure gradient on pullback across the aortic valve. Ascending aortic pressure was 113/59 with a mean of 73 mmHg. Cardiac output by thermodilution was 3.7 and cardiac index was 1.99. LEFT VENTRICULAR ANGIOGRAPHY: Left ventricular angiography was performed in the right anterior oblique projection. Global left ventricular systolic function appears to be within normal limits. Left ventricular ejection fraction is estimated to be 50% to 55%. CORONARY ANGIOGRAPHY: Left main coronary artery, left anterior descending artery, left circumflex artery, and right coronary artery do not exhibit any angiographically significant disease. Right coronary artery is dominant. CONCLUSIONS: 1. No angiographically significant coronary artery disease. 2. Well preserved global left ventricular systolic function with ejection fraction of 50% to 55%. 3. Normal left ventricular end-diastolic pressure. 4. No evidence of left or right heart failure. DISCUSSION AND RECOMMENDATIONS: Based on the results of the study, symptoms do not appear to be of cardiac origin. Continuing risk factor modification is advised. Outpatient followup is advised. Job ID: [id number] DocumentID: [id number] Dictated Date: 03/11/2021 11:39:26 Spindle Tester Date: 03/11/2021 11:58:52 Dictated By: TRISHA WANG MD, MA, FACP, FACC,
== END 2021-03-11 14:35 | disposition home or self-care (01) ==
LOC: CATH 09:00 → SDC 11:38 → CATH 14:35
PROVIDERS: ATTEND Internal Medicine Cardiovascular Disease
DX: R06.02 Shortness of breath (principal); I10 Essential (primary) hypertension; K29.70 Gastritis, unspecified, without bleeding; K29.80 Duodenitis without bleeding; K44.9 Diaphragmatic hernia without obstruction or gangrene; K57.90 Diverticulosis of intestine, part unspecified, without perforation or abscess without bleeding; I44.7 Left bundle-branch block, unspecified; I47.1 Supraventricular tachycardia; M19.90 Unspecified osteoarthritis, unspecified site; F32.A Depression, unspecified; I34.0 Nonrheumatic mitral (valve) insufficiency; E78.2 Mixed hyperlipidemia; I49.3 Ventricular premature depolarization; Z79.899 Other long term (current) drug therapy; Z79.82 Long term (current) use of aspirin; Z78.9 Other specified health status
CPT/HCPCS: 36415; 36430; 80053; 80061; 85027; 85610; 85730; 87081; 93460

== ENCOUNTER → 2021-08-06 | Outpatient (CLI) | payer MEDICARE, MEDICAID ==
[~2021-08-06] MED LIST changes: -HEParin (CATH LAB) 2,000 ML IV ONE; -LIDOCAINE 1% INJ 20 ML 20 ML VIAL ONE; -NS IV 1000 ML 1,000 ML IV SCH; -NS IV 1000 ML 1,000 ML ONE
== END ==
LOC: ORTHO 10:14
PROVIDERS: ATTEND Orthopaedic Surgery
DX: M17.11 Unilateral primary osteoarthritis, right knee (principal); I10 Essential (primary) hypertension; I25.10 Atherosclerotic heart disease of native coronary artery without angina pectoris; E78.2 Mixed hyperlipidemia; J43.9 Emphysema, unspecified; E66.9 Obesity, unspecified
CPT/HCPCS: 20610; 99203

== ENCOUNTER → 2021-10-15 | Outpatient (CLI) | payer MEDICARE, MEDICAID ==
[~2021-10-15] MED LIST changes: +OMEP20TA56 PO; -OMEP20TA7 PO
== END ==
LOC: ORTHO 09:35
PROVIDERS: ATTEND Orthopaedic Surgery
DX: M17.11 Unilateral primary osteoarthritis, right knee (principal); I10 Essential (primary) hypertension; E78.2 Mixed hyperlipidemia; E66.9 Obesity, unspecified; J43.9 Emphysema, unspecified; I25.10 Atherosclerotic heart disease of native coronary artery without angina pectoris
CPT/HCPCS: 20610

== ENCOUNTER → 2021-11-19 | Outpatient (CLI) | payer MEDICARE, MEDICAID | LOC: ORTHO 11:37 | PROVIDERS: ATTEND Orthopaedic Surgery | DX: M17.11 Unilateral primary osteoarthritis, right knee (principal); I10 Essential (primary) hypertension; I25.10 Atherosclerotic heart disease of native coronary artery without angina pectoris; J43.9 Emphysema, unspecified; E78.2 Mixed hyperlipidemia; E66.9 Obesity, unspecified | CPT/HCPCS: 20610 ==

== ENCOUNTER → 2021-12-30 | Outpatient (CLI) | payer MEDICARE, MEDICAID ==
--- NOTE | 2021-12-30 14:22 | Diagnostic Imaging Report ---
PROCEDURE: US Thyroid. TECHNIQUE: Multiple real-time grayscale images were obtained of the thyroid in various projections. INDICATION: Thyroid nodule. FINDINGS: Right lobe measures 4.8 x 1.4 x 1.3 cm. There is a 4 mm anechoic cyst in the upper portion. The left lobe measures 4.4 x 1.2 x 1.3 cm with no nodules demonstrated. The isthmus is 3 mm. IMPRESSION: No worrisome features are seen. Small colloid cyst on the right. TI-RADS 2 Dictated by: Dictated on workstation # [id number]
== END ==
LOC: RAD 12:00
PROVIDERS: ATTEND Family Medicine
DX: E04.1 Nontoxic single thyroid nodule (principal)
CPT/HCPCS: 76536

== ENCOUNTER → 2022-02-04 | Outpatient (CLI) | payer MEDICARE, MEDICAID | LOC: CARD 13:56 | PROVIDERS: ATTEND Internal Medicine Cardiovascular Disease | DX: I08.0 Rheumatic disorders of both mitral and aortic valves (principal) | CPT/HCPCS: 93306 ==

== ENCOUNTER → 2022-02-04 | Outpatient (CLI) | payer MEDICARE, MEDICAID | LOC: RAD 13:55 | PROVIDERS: ATTEND Family Medicine | DX: Z12.31 Encounter for screening mammogram for malignant neoplasm of breast (principal) ==

== ENCOUNTER → 2022-02-04 | Outpatient (CLI) | payer MEDICARE, MEDICAID ==
[~2022-02-04] MED LIST changes: +ACET-575 PO; +ACET325T49 PO; +CARV3.122 PO; +DAPA10TA PO; +DIGO125T3 PO; +METO5TAB6 PO; +POTA10CA44 PO; +SERT100T PO; +SPIR25TA5 PO
--- NOTE | 2022-02-05 11:09 | Diagnostic Imaging Report ---
INDICATION: Routine screening. COMPARISON: Prior mammograms from 01/07/2021 and 11/27/2019. TECHNIQUE: 2D and 3D bilateral screening mammography was performed with CAD. FINDINGS: Scattered fibroglandular densities are identified bilaterally. The parenchymal pattern is stable. No mass or malignant-appearing microcalcifications are seen. The axillae are unremarkable. There are scattered benign parenchymal and vascular calcifications bilaterally. The axillae are unremarkable. IMPRESSION: No mammographic features suspicious for malignancy are identified. ACR BI-RADS Category 2: Benign findings. Result letter will be mailed to the patient. Note: At least 10% of breast cancer is not imaged by mammography. Dictated by: Dictated on workstation # [id number]
== END ==
LOC: RAD 13:55
PROVIDERS: ATTEND Family Medicine
DX: Z12.31 Encounter for screening mammogram for malignant neoplasm of breast (principal)
CPT/HCPCS: 77063; 77067

== ENCOUNTER → 2022-02-10 | Outpatient (CLI) | payer MEDICARE, MEDICAID ==
[~2022-02-10] MED LIST changes: -ACET-575 PO; -ACET325T49 PO; -CARV3.122 PO; +CATHETER FLUSH 10 ML SYR IVP PRN; -DAPA10TA PO; -DIGO125T3 PO; +HEParin (CENTRAL IV FLUSH) 500 UNIT/5 ML SYR ONE; -METO5TAB6 PO; -POTA10CA44 PO; -SERT100T PO; -SPIR25TA5 PO
--- NOTE | 2022-02-12 13:59 | STRESS TEST ---
DATE OF SERVICE: 02/10/2022 RADIONUCLIDE VENTRICULOGRAPHY ORDERING PHYSICIAN: Kaya Plunkett MD; BELL; ARMANDOP; FACC; PRIMARY PHYSICIAN: Dr. Villalba. CLINICAL DIAGNOSIS: Dilated cardiomyopathy. Radionuclide ventriculography was carried out using autologous red blood cells tagged with 30.2 mCi of technetium 99m. Images show mild global hypokinesis. Left ventricular ejection fraction is calculated to be 38%. There does not appear to be distinct regional wall motion abnormality. CONCLUSIONS: 1. Mild global hypokinesis. 2. Left ventricular ejection fraction is calculated to be 38%. Job ID: [id number] DocumentID: [id number] Dictated Date: 02/12/2022 08:43:14 Donation Worker Date: 02/12/2022 13:57:00 Dictated By: KAYA PLUNKETT MD; BELL; ARMANDOP; FACC;
== END ==
LOC: CARD 14:00
PROVIDERS: ATTEND Internal Medicine Cardiovascular Disease
DX: I42.0 Dilated cardiomyopathy (principal)
CPT/HCPCS: 78472

== ENCOUNTER 2022-03-20 09:30 | Day surgery (SDC) | payer MEDICARE, MEDICAID ==
[2022-03-20] VITALS (7 sets, daily range): BP systolic 105–128; BP diastolic 55–75
[~2022-03-20] VITALS: Ht 162.6 cm; Wt 83.3 kg
[2022-03-20 07:52] LABS: HEMATOCRIT 38 % (35-52); HEMOGLOBIN 12.4 g/dL (11.5-16.0); MEAN CORPUSCULAR HEMOGLOBIN 29 pg (25-34); MEAN CORPUSCULAR HGB CONC 33 g/dL (32-36); MEAN CORPUSCULAR VOLUME 86 fL (80-99); MEAN PLATELET VOLUME 9.3 fL (9.0-12.2); PLATELET COUNT 328 10^3/uL (130-400); WHITE BLOOD COUNT 9.4 10^3/uL (4.3-11.0)
[2022-03-20 08:09] LABS: INR 0.9 (0.8-1.4); PROTHROMBIN TIME PATIENT 12.9 SEC (12.2-14.7)
[2022-03-20 08:17] LABS: ALBUMIN 4.1 GM/DL (3.2-4.5); BILIRUBIN,TOTAL 0.8 MG/DL (0.1-1.0); CALCIUM 9.6 MG/DL (8.5-10.1); CREATININE SERUM 0.8 MG/DL (0.60-1.30); POTASSIUM 3.5 MMOL/L (3.6-5.0); TOTAL PROTEIN 7.8 GM/DL (6.4-8.2)
[~2022-03-20 09:30] MED LIST changes: +CARV3.122 PO; -CATHETER FLUSH 10 ML SYR IVP PRN; +DAPA10TA PO; +DIGO125T3 PO; +HEParin (CATH LAB) 1,000 ML IV ONE; -HEParin (CENTRAL IV FLUSH) 500 UNIT/5 ML SYR ONE; +LIDOCAINE 1% INJ 30 ML (XYLOCAINE) VIAL ONE; +METO5TAB6 PO; +MIDAZOLAM 5 MG/5 ML (VERSED) VIAL ONE; +NS (IVPB) 250 ML ONE; +NS IV 1000 ML 1,000 ML IV ONE; +NS IV 1000 ML 2,000 ML ONE; +POTA10CA43 PO; +SERT100T PO; +SPIR25TA5 PO; +VANCOMYCIN 1000 MG/VIAL ONE; +VANCOMYCIN INJECTION 1,000 MG in NS (IVPB) 250 ML IV ONE; +ceFAZolin INJECTION 0 MG ONE; +ceFAZolin INJECTION 1,000 MG VIAL IV ONE; +fentaNYL INJ 100 MCG/2 ML AMP ONE
[2022-03-20] MEDS ORDERED: POTASSIUM CL 10MEQ/50ML IVPB 200 ML IV ONE (09:33)
[2022-03-20] MEDS: POTASSIUM CL 10MEQ/50ML IVPB 50 ML IV SCH ×4 (09:45→17:06)
[2022-03-20] MEDS ORDERED: POTASSIUM CL 10MEQ/50ML IVPB 50 ML IV SCH (09:45)
--- NOTE | 2022-03-20 09:53 | Pre-Op Note & Conscious Sedat ---
Pre-Operative Progress Note Date H&P Reviewed: Mar 20, 2022 Time H&P Reviewed: 09:49 History & Physical: No changes noted Changes from last HP K was 3.5 so we are replacing otherwise no change Date of Service:arial 4d 03/09/2022 arial 4d Ami Espinozaarial 4d is a arial 4d 86 y.o.arial 4d arial 4d femalearial 4d . HPI arial 4d I had the pleasure of seeing your patient Ami Espinoza("Faygans")as a part of the [facility] at [facility] today for initial Electrophysiolgy Consultation regarding her evaluation for a CRTp or D device implantation . She is typically followed and was referred by my colleague Dr. Plunkett, her primary phytopathologist. Ms. Espinoza is an exceptionally pleasant 86 y.o. female, who is accompanied by her equally pleasant, Maria Guadalupe. All data in this note, including the past medical history, was newly collected today. Her PMHx briefly includes:Dilated Nonischemic Cardiomyopathy with EF by Echo of 30-35% but by MUGA 38%; NYHA III CHF; Mitral Valve Regurgitation; Reported No Significant CAD by Cardiac Catheterization (02/2021) Essential Hypertension; Mixed Hyperlipidemia; OSAS, SVT; PVCs; LBBB with Paradoxical Septal Motion, History of Gastritis/Duodenitis, Uterine Prolapse, Bladder Elevation Surgery; Cutaneous Lupus; Depression; Mild Carotid Artery Disease by Duplex 04/2019. NOTE: Patient does not tolerate statins. Also does not tolerate Lipitor or Trilipix AND Relative Intolerance to Beta Meagan Due To Exacerbation of Reactive Airway Disease. DETAILED UPDATED PMHx: -- : PFTs show mod obstructive defect with some reversibility with b ronchodilators --11/17/2016: Cardiac cath: No significant CAD,LVEF 60%,normal right heart pressures, normal LVEDP -- 01/02/21: Home sleep study reported be normal, but she says she never slept -- 02/13/21:Echocardiogram: LVEF 40-45,mild diffuse hypokinesis, mild MR, PASP 35 mmHg -- 03/11/21: no evidence of R or L heart failure, normal LVEDP, no significant CAD -- 03/11/21: Cardiac Catheterization: No evidence of R or L heart failure, normal LVEDP, no significant CAD -- 02/03/22: Echo: LVEF 30-35%, mod MR, triv AI, PASP 35-40 mmHg -- 02/10/22: MUGAmild global hypokinesis,LVEF 38% -- 02/23/2022: OV (Dr. Plunkett): Changed Losartan to Entresto. Added Farixga and Digoxin. Recommended a sleep study. Placed EP referral for BiV device. Her HPI for today is discussed in greater detail as a part of the Assessment and Plan below. FHx, SHx and ROS documented and I have reviewed. Most pertinent ROS is included/discussed throughout the note, e.g. HPI and A/P. ASSESSMENT AND PLAN: -- SOA/DIEZ -- Dilated, Nonischemic Cardiomyopathy -- NYHA III CHF -- LBBB with Paradoxical Septal Motion -- Mitral Valve Regurgitation -- Cardiac Catheterization (02/2021) with No Significant CAD -- Essential Hypertension -- Mixed Hyperlipidemia -- ? OSAS--I concur with Dr. Plunkett that she should pursue a sleep study. --"SVT" -- PVCs Ms. Espinoza was referred for consideration of COOKIE BREAKER Device Implantation. She has significant LV dysfunction, class III heart failure, and a left bundle branch block with a QRS duration of 150 ms. I discussed with the patient and kosta length the procedure of bivent ricular ICDor pacemakerimplantation or Cardiac Resynchronization Therapy- Defibrillatoror pacemaker(COOKIE BREAKER-Avi CRTP). Despite her Guideline DirectedMedical Tx beingoptimized, as best her BP will tolerate HerLVEF has yet to improve above40%. Thus, We discussed her risk of sudden cardiac given herModerate-SevereLV Dysfunction, and Class 3 CHF. She has had 2 studies assessing her EF in 1 assessed to be less than or equal to 35% while the other said above 35%. I will have to clarify that with Dr. Plunkett who anticipate will review the studies for final impression. If her EF is less than or equal to 35% then we will proceed with CRTD device implantation. If her EF is greater than 35% then we will proceed with CRTP device impla ntation. Specifically we discussed that an ICD is not indicated if the patient's EF is greater than 35% as her has not been shown to have significant benefit. Anticipating it could be either device, we had a lengthy discussion regarding the benefit of ICDs in the prevention of Sudden Cardiac in patients at risk such as her. We discussed the indications and purpose of ICD therapy. We discussed that defibrillators prevent someone from dying from a cardiac arrest but do not necessarily prevent a cardiac arrest. We discussed that with a CRTD device, All patients receive the benefit of prevention from sudden cardiac . I reviewed an evidence-based tool (EBT) with the patient prior to ICD implantation for primary prevention to ensure that the patients health goals and preferences were covered. A copy of the EBT can be accessed thru [facility] [employer] system under 'Implantable Cardioverter-Defibrillator (ICD) Shared Decision- Making Tool. We also discussed CHF and cardiac dyssynchrony and its mechanism. We discussed the rational and potential benefit of cardiac resynchronization Tx for CHF and LBBB, etc. We discussed that approximately 70% of pts. Tx'd with COOKIE BREAKER devices respond with significant clinical improvement and possible EF improvement. The risks, benefits, and alternatives to the procedure were reviewed with the patient and any family present. We discussed the risks to include but not be limited to: , SC, stroke, cardiac perforation, vessel damage, pneumothorax, infection, and bleeding. We reviewed that we will utilize IV contrast dye in order to view and determine optimal LV lead position within the coronary sinus. LV lead implantation was discussed at length including the approximately 5% risk of unsuccessful endocardial LV lead placement. In these cases, the patient would likely be referred for epicardial LV lead i mplantation. Post device care and limitations were also reviewed with the patient. After we discussed the procedure and risks of the procedure at length, all questions were answered. The patient and brando, all expressed an understanding of the procedure and risks and wish to proceed with CRTdeviceimplantation.Again either CRTD or CRTP. We will tentatively schedule the procedure for 03/20/2022. I did emphasize that if her symptoms of SOA/DIEZ are related to heart failure that she will have at least a 70% likelihood of having significant improvement in her symptoms. However if they are not that she may not see full benefit. Regardless however EF is decreased and she still has an indication for device therapy even if she were class II. See additional plan details below. PLAN: --COOKIE BREAKER device implantation tentatively scheduled for03/20/22at [facility] -- Hold Digoxin the morning of the procedure ADDENDUM: I spoke with Dr. Plunkett. He is very familiar with the patient's history. He felt a CRTP device implantation would be appropriate. Total Time Today [id number] in the following activities: Preparing to see the patient, Obtaining and/or reviewing separately obtained history, Performing a medically appropriate examination and/or evaluation, Counseling and educating the patient/family/caregiver, Ordering medications, tests, or procedures, Referring and communication with other health intensive care medicine specialist (when not separately reported) and Documenting clinical information in the electronic or other health record Ms. Espinoza was educated regarding plan of care. She was instructed to call our office with any questions or concerns, as well as to notify us of any new or worsening symptoms. She verbalized understanding. I appreciate the opportunity to participate in the care of your patient. Please do not hesitate to contact me directly if you have any questions or further insights into her care. [facility] [address] Vitals: 03/09/22 1344 BP: (!) 147/84 BP Source: Arm, Left Upper Pulse: 88 Temp: 36.1 C (97 F) Resp: 20 SpO2: 97% TempSrc: Temporal Weight: 82.1 kg (181 lb) Height: 162.6 cm (5' 4") arimn 4d arimn 4d Body mass index is 31.07 kg/m.arimn 4d Past Medical History [address] Patient Active Problem List Diagnosis Date Noted Dyspnea 02/26/2022 Per OV note on 02/23/[address] Kaya Plunkett ([facility] - Cardiology) HF (heart failure) ([facility]) 02/26/2022 Per OV note on 02/23/[address] Kaya Plunkett ([facility] - Cardiology) 02/13/2021 - ECHO: ([facility]) LV cavity size is normal. LV wall thickness is normal. LV systolic function is reduced. EF ~ 40-45%. Mild diffuse hypokineses. Mild MVR. PASP is mildly increased, ~ 35mmHg. 03/11/2021 - Cardiac Cathterization: ([facility]) No angiographically significant CAD. Well preserved global LV systolic function is EF of 50-55%. Normal LV end-diastolic pressure. No evidence of left or right heart failure. 02/04/2022 - ECHO: ([facility]) LV cavity size is normal. LV is mild concentric hypertrophy. LV systolic function is moderately reduced. EF ~ 30- 35%. There is paradoxical septal motion. LA is mildly dilated. Moderate MVR. Trivial AVR. Mild enlargement to the aortic root and ascending aorta. PASP is in the range of 35-40mmHg. Global LV strain is considerably ipaired (-11.5%) 02/10/2022 - MUGA: ([facility]) Mild global hypokinesis. LVEF is calculated to be 38%. Primary hypertension 02/26/2022 Per OV note on 02/23/[address] Kaya Plunkett ([facility] - Cardiology) HLD (hyperlipidemia) 02/26/2022 Per OV note on 02/23/[address] Kaya Plunkett ([facility] - Cardiology) SVT (supraventricular tachycardia) (HCC) 02/26/2022 Per OV note on 02/23/[address] Kaya Plunkett ([facility] - Cardiology) Degenerative joint disease 02/26/2022 Per OV note on 02/23/[address] Kaya Plunkett ([facility] - Cardiology) Cutaneous lupus erythematosus 02/26/2022 Per OV note on 02/23/[address] Kaya Plunkett ([facility] - Cardiology) Depression 02/26/2022 Per OV note on 02/23/[address] Kaya Plunkett ([facility] - Cardiology) Carotid arterial disease (HCC) 02/26/2022 Per OV note on 02/23/[address] Kaya Plunkett ([facility] - Cardiology) PVC (premature ventricular contraction) 02/26/2022 Per OV note on 02/23/[address] Kaya Plunkett ([facility] - Cardiology) RAN (obstructive sleep apnea) 02/26/2022 Per OV note on 02/23/[address] Kaya Plunkett ([facility] - Cardiology) Dilated cardiomyopathy (HCC) 02/26/2022 Per OV note on 02/23/[address] Kaya Plunkett ([facility] - Cardiology) arial 4d arial 4Ud Review of Systems All other systems reviewed and are negative. arial 4d arial 4d Physical ExamConstitutional:arial 4d Shearial 4d is in no acute distress, resting comfortably. Skin/Integument:Warm and dry. Eyes: PERRL, sclera are non-icteric and no xanthelasmas noted. ENT: Hearing is intact. Heme/Lym/Immun:Supple neck, without thyromegaly. Respiratory-Pulmonary/Chest:Effort normal and breath sounds normal. No respiratory distress or accessory muscle use. No obvious tracheal deviation. Clear to auscultation bilaterally. Cardiovascular:No evidence of increased jugular venous pressure, carotids are 1+/4+ equal bilaterally. Regular rhythm, S1, S2, S3and a2/6 systolic murmur HBA the apex. No heaves, thrills or rubs. Musc/Skeletal-Extremities:Without significant peripheral edema. With what appears to be full ROM. Neuro:Patient is alert and oriented to person, place, and time. Psych: Patient does not appear anxious, arial 4d shearial 4d appears appropriate, with normal non-pressured speech and what appears to be appropriate judgement Cardiovascular Studies ECG today documents NSR at 78 bpm with first-degree AV block, LAFB, LBBB. Cardiovascular Health Factors Vitals arial 4Bl BP Readings from Last 3 Encounters: 03/09/22 (!) 147/84 arial 4d arial 4Bl Wt Readings from Last 3 Encounters: 03/09/22 82.1 kg (181 lb) arial 4d arial 4Bl BMI Readings from Last 3 Encounters: 03/09/22 31.07 kg/m arial 4d Smoking arial 4Bl Social History Tobacco Use Smoking Status Never Smokeless Tobacco Never arial 4d Lipid Profile arial 4d No results found for: CHOLarial 4d No results found for: HDLarial 4d No results found for: LDLarial 4d No results found for: TRIG Blood Sugar arial 4d No results found for: [id number] 4d No results found for: GLU, GLUF, GLUPOC Problems Addressed Today arimn 4Bl Encounter Diagnoses Name Primary? SVT (supraventricular tachycardia) (HCC) Yes arial 4d Current Medications (including today's revisions) Whitten 4d albuterol sulfate (PROAIR HFA) 90 mcg/actuation HFA aerosol inhaler Inhale 2 puffs by mouth into the lungs every 4 hours as needed for Wheezing or Shortness of Breath. Shake well before use. carvediloL (COREG) 3.125 mg tablet Take 3.125 mg by mouth twice daily with meals. Take with food. dapagliflozin (FARXIGA) 10 mg tablet Take 10 mg by mouth daily. digoxin (LANOXIN) 125 mcg (0.125 mg) tablet Take 125 mcg by mouth daily. losartan (COZAAR) 50 mg tablet Take 50 mg by mouth daily. metOLazone (ZAROXOLYN) 5 mg tablet Take 5 mg by mouth daily as needed. multivit-mins no.63/iron/folic (M-VIT PO) Take by mouth daily. potassium chloride (K-DUR) 10 mEq tablet Take 10 mEq by mouth daily. Take with a meal and a full glass of water. spironolactone (ALDACTONE) 25 mg tablet Take 25 mg by mouth daily. Take with food. arial 4d arial 4d Office Visit on 03/09/2022 Office Visit on 03/09/2022 Revision History Detailed Report Pre-Op Diagnosis: chf Conscious Sedation Pre-Proced ASA Score 3 For ASA 3 and 4: Consider anesthesia and medical clearance. Also, for patients with a history of failed moderate sedation consider anesthesia. Airway Lungs Heart ASA score ASA 1: a normal healthy patient ASA 2: a patient with a mild systemic disease (mid diabetes, controlled hypertension, obesity ASA 3: a patient with a severe systemic disease that limits activity (angina, COPD, prior Myocardial infarction) ASA 4: a patient with an incapacitating disease that is a constant threat to life (CHF, renal failure) ASA 5: a moribund patient not expected to survive 24 hrs. (ruptured aneurysm) ASA 6: a declared brain- patient whose organs are being harvested. For emergent operations, add the letter E after the classification Mallampati Classification Grade 3 Sedation Plan Analgesia, Amnesia, Plan communicated to team members, Discussed options with patient/fam, Discussed risks with patient/fam The patient is an appropriate candidate to undergo the planned procedure, sedation, and anesthesia. The patient immediately re-assessed prior to indication. JOSE ODOM MD Mar 20, 2022 09:53
[2022-03-20] MEDS ORDERED: LIDOCAINE 1% INJ 30 ML (XYLOCAINE) VIAL ONE (10:11)
[2022-03-20] MEDS ORDERED: fentaNYL INJ 100 MCG/2 ML AMP ONE ×2 (10:26→12:02)
[2022-03-20] MEDS ORDERED: MIDAZOLAM 5 MG/5 ML (VERSED) VIAL ONE (10:26)
[2022-03-20] MEDS ORDERED: MIDAZOLAM 2 MG/2 ML (VERSED) VIAL ONE (11:57)
--- NOTE | 2022-03-20 13:07 | ICD Implantation ---
ICD-PPM Attending Outpatient Admitting Clerk: Tylor Odom MD Fellow: None Preoperative diagnosis: [CHF, LBBB, NYHA class III, nonischemic cardiomyopathy with EF 38 percent] Postoperative diagnosis: Same Procedure(s) Performed: [CRTP Device Implantation including placement of RA pacing lead, RV pacing lead, and LV pacing lead. Testing of the leads. Fluoroscopy. Left upper extremity venogram with interpretation] Procedure Description: Successful Once the patient was sterilely prepped and draped in usual fashion and underwent moderate sedation which I supervised administration of all moderate sedation med ications with fluoroscopic guidance an incision was made in the left deltopectoral groove and the second of the pectoral fascia with blunt Bovie dissection. A pocket was made inferiorly with blunt Bovie dissection. Hemostasis was obtained. Using a micropuncture access needle a few passes remaining extrathoracic did not cannulate the axillary vein. We did a left upper extremity venogram. The venogram demonstrated a slightly higher location than previously approached and patency of the left axillary and subclavian vein into the SVC and RA. Using the venogram as a guide we successfully cannulated the axillary vein on 3 separate occasions remaining extrathoracic with a micropuncture access needle. Sheaths were placed via modified Seldinger technique. 2 7 [place] sheaths and a 9 [place] sheath. Through the 7 [place] sheath and RV pacing lead was advanced into the RV low septum. The active-fixation mechanism was extended and emissions testing technician showed good function. Next using a wide guide and an 035 wire through the 9 [place] sheath a guidewire was advanced down to the RA. The guide was manipulated into the coronary sinus. The wire was advanced distally. The guide was advanced to the mid coronary sinus. The wire was removed. A [place]-Matthew catheter was advanced and a venogram of the coronary sinus was obtained. The venogram demonstrated a posterior lateral vein branch with very diminutive branches extending past 6:00 to the lateral wall. Not viable. This was followed by a viable large marginal vein branch extended to 4:00 in the AZERI view, this was followed by a lateral vein branch with a very acute and tortuous takeoff extending to approximately 3:00 and just barely reaching the distal border of the heart in the AZERI view. The CS was slightly dilated at that poi nt. The distal CS was not well visualized but there did not appear to be an anterior lateral vein branch. At this point the [place]-Matthew catheter was removed. An S shaped lead was advanced down into the guide. Utilizing a run-through 0.14 wire the marginal vein branch was successfully cannulated. The lead was advanced to the distal portion of the branch with an upward turn. However there was no capture on the first of the pulse. We then poor function. This area of the myocardium was obviously not very viable. The lead was brought back. The wire was readvanced into a distal branch other than the one it was previously. It had a slight downward turn. The lead was wedged in well. Lead tested and showed at least 2 vectors with thresholds below 3. At this point we excepted this lead position. Next the RA lead was positioned to the RA appendage. Initial location as we split the sheath of the RA lead to secure it we noted that the lead dislodged. Therefore the lead was repositioned. Its initial repositioning location showed far field R wave oversensing with an R wave at least a third of the RA EGM. Therefore the lead was again repositioned. It was positioned slightly higher and had good function and stability. The patient's left subclavian vein and SVC were very tortuous. As we advanced the sheaths and the guides and the wires and the leads they would get hung up as the subclavian turn into the SVC. Therefore points leaving the sheath despite adding significant redundancy to the RA lead that redundancy was brought back into that subclavian vein SVC junction. The lead appeared stable however. The lead tested well up. The leads were reassessed. All sheaths were split. The CS guide was then carefully slit with and removed without dislodgment of the LV lead. All leads were secured with 0-0 Ethibond suture. The pocket was flushed with saline solution. The leads were connected to the CRTP generator and all setscrews were tightened and assessed to be secure. The leads and generator were placed in the pocket but prior to placing the generator in the pocket the generous placed in a Tyrex pouch. Then all were placed in the pocket header side up. The pocket was Not secured to the pectoral fascia. The pocket was then closed in 3 running layers observable suture. Dermabond or its equivalent was applied. The patient tolerated the procedure well. Procedure Findings: Adequate testing of device leads Anesthesia: Moderate sedation via RN Sedation: I was personally responsible for the administration of moderate sedation services during the procedure performed and I confirm requirements described in CPT section on moderate sedation were followed, including the use of an independent trained observer who had no other duties during the procedure and review of personal/family history of sedation complications. After providing fentanyl [ ] and midazolam[ ], we achieved moderate conscious sedation, which was maintained throughout the procedure. The hemodynamic parameters, respiratory parameters, as well as neurological status was monitored throughout the procedure by the lab staff and myself. Estimated blood loss: [15 ] mL Complications: None Specimens removed: None Recommendations: - Pain control as needed PA and lateral chest x-ray in the morning. Arm limitations as instructed to the patient. Anticipate discharge tomorrow post x-ray. [ ]. TYLOR ODOM MD Mar 20, 2022 13:07
[2022-03-20] MEDS: NS IV 1000 ML 1,000 ML IV SCH ×2 (13:26→17:09)
--- NOTE | 2022-03-20 13:26 | Diagnostic Imaging Report ---
Clinical indication: Pacemaker placement. EXAM: Portable chest x-ray upright view. COMPARISON: Chest x-ray dated 03/05/2021. FINDINGS: There is interval placement of cardiac pacemaker with 3 leads projecting over the heart in good position. There is mild bibasilar atelectasis. Chronic appearing curvilinear opacities in the periphery of both lungs again noted. There is no pleural effusion or pneumothorax. Pulmonary vasculature is minimally prominent. There is mild cardiomegaly. There are degenerative spurs involving the spine. IMPRESSION: 1: There is interval placement of cardiac pacemaker in good position. There is no pneumothorax. 2: There is mild bibasilar atelectasis. Suspected background chronic lung changes. 3: There is mild cardiomegaly with mild pulmonary vascular congestion. Dictated by: Dictated on workstation # [id number]
[2022-03-21 00:21] VITALS: BP 131/64
[2022-03-21 04:00] VITALS: BP 142/67
[2022-03-21 05:48] LABS: CALCIUM 9.1 MG/DL (8.5-10.1); CREATININE SERUM 0.63 MG/DL (0.60-1.30); POTASSIUM 3.5 MMOL/L (3.6-5.0)
[2022-03-21 07:45] VITALS: BP 135/65
--- NOTE | 2022-03-21 09:18 | Diagnostic Imaging Report ---
INDICATION: Post device implantation *do not lift patient arm on implant side. TECHNIQUE: Two view chest 8:55 AM CORRELATION STUDY: 03/20/2022 FINDINGS: Left-sided AICD, stable. Heart size and mediastinum unchanged. Vasculature is congested but appears less severe from prior. Chronic-appearing change about the interstitial lung parenchyma. No new infiltrate or effusion. No pneumothorax. Lateral projection limited given patient's upper extremity in the [id number]. IMPRESSION: 1. Left-sided AICD. No evidence for post pacemaker placement complication. Chronic interstitial changes. Dictated by: Dictated on workstation # [id number]
--- NOTE | 2022-03-21 09:49 | Discharge Summary ---
Diagnosis/Chief Complaint Date of Admission 03/20/22 Date of Discharge 03/21/22 Discharge Date: Mar 21, 2022 Discharge Time: 11:00 Admission Diagnosis Admission Diagnosis Chronic heart failure with reduced ejection fraction. Discharge Diagnosis 1. Chronic heart failure with reduced ejection fraction. 2. Cardiomyopathy. EF 30-35% by echocardiogram on 02/04/2022. 3. Status post biventricular pacemaker insertion during this admission. 4. Primary hypertension. 5. Mitral regurgitation. 6. Left bundle branch block. 7. Mixed hyperlipidemia. 8. Prolonged use of estrogen supplement. 9. Pulmonary fibrosis. 10. Supraventricular tachycardia. 11. History of cutaneous lupus. 12. Carotid atherosclerosis, bilateral, mild. 13. Obesity. Reason Hospital Visit Chronic heart failure with reduced ejection fraction presented for biventricular pacemaker implantation. Discharge Summary Hospital Course Was the Problem List Reviewed?: Yes Hospital Course The patient presented for elective biventricular pacemaker implantation which was performed on 03/20/2022 without incident. The following day, a pacemaker check confirmed normal device function. Chest x-ray did not reveal any evidence of pneumothorax and leads appear to be in place. She was discharged the day following the procedure. Labs Laboratory Tests 03/20/22 07:43: Sodium Level 132L, Potassium Level 3.5L, Chloride Level 97L, Blood Urea Nitrogen 19H 03/21/22 05:11: Sodium Level 132L, Potassium Level 3.5L Procedures Biventricular pacemaker insertion. Discharge Physical Examination Allergies: Coded Allergies: [id number] Reductase Inhibitor (Verified Allergy, Severe, MUSCLE WEAKNESS, 11/29/18) Penicillins (Verified Allergy, Intermediate, RASH/SWELLING, 11/29/18) Sulfa (Sulfonamide Antibiotics) (Verified Allergy, Mild, RASH, 11/29/18) Vitals & I&Os Vital Signs Date Time Temp Pulse Resp B/P (MAP) Pulse Ox O2 Delivery O2 Flow Rate FiO2 03/21/22 07:45 36.1 66 12 135/65 (88) 97 Room Air General Appearance: Alert, Oriented X3, Cooperative, No Acute Distress HEENT: Atraumatic, EOMI, Mucous Memb Moist/Markle Respiratory: Clear to Auscultation, Normal Air Movement Cardiovascular: Regular Rate, Normal S1, Normal S2, No Murmurs Abdominal: Normal Bowel Sounds, Soft Extremities: No Clubbing, No Cyanosis, No Edema, Normal Pulses Skin: No Rashes, No Breakdown, No Significant Lesion, Other (Pacemaker insertion site dressing is dry and intact.) Neuro: Normal Speech, Strength at 5/5 X4 Ext, Cranial Nerves 3-12 NL Psych/Mental Status: Mental Status NL, Mood NL Discharge Home Medications Reviewed and agree with Discharge Medication list on patient's Discharge Instruction sheet Condition at Discharge Good, improved. Instructions to Patient/Family Please see electronic discharge instructions given to patient. Clinical Quality Measures End of Life/Advance Care Plan: Advance Care discuss with: patient Admission Status Admission Status: Other (Same Day Surgery) AMI/AHF: Ejection Fraction: <40 (RIA/ARB Indicated) D/C Medications Addressed: Angiotension receptor fariha, Beta fariha, Digoxin, Diuretic D/C Inst. for HF given: Yes Reason Statin not given: Allergy/Intolerance ASA Given prior to admit: No ASA po Prior to arrival: No No ASA given w/i 24hr(arrival): Not Indicated DVT/VTE Risk/Contraindication: VTE Addressed: Yes VTE Present on Admission: No RFS Level Per Nursing on Admit: 1=Low/No VTE PPX XAVIER SHAW JR, MD Mar 21, 2022 09:48
[2022-03-21] MEDS ORDERED: LOSARTAN 50 MG (COZAAR) TAB PO SCH (10:46)
[2022-03-21] MEDS ORDERED: DIGOXIN 0.125 MG (LANOXIN) TAB PO SCH (10:46)
[2022-03-21] MEDS ORDERED: KCL 10 MEQ TAB (MICRO K) PO SCH (10:48)
[2022-03-21] MEDS ORDERED: SERTRALINE 100 MG (ZOLOFT) TAB PO SCH (10:48)
[2022-03-21] MEDS ORDERED: SPIRONOLACTONE 25 MG (ALDACTONE) TAB PO SCH (10:49)
[2022-03-21] MEDS ORDERED: EMPAGLIFLOZIN 10 MG TABLET (JARDIANCE) PO SCH (10:51)
[2022-03-21] MEDS ORDERED: METOLAZONE 2.5 MG (ZAROXOLYN) TAB PO SCH (11:00)
[2022-03-21 11:53] VITALS: BP 138/94
[2022-03-22] MEDS ORDERED: NON-FORMULARY MEDICATION 1 EA EA (Multivits-Min/Iron/FA/Lutein (Centrum Silver Women Table PO SCH (09:00)
== END 2022-03-21 12:10 | disposition home or self-care (01) ==
LOC: CATH 09:30 → CSD 13:08 → CATH 03-21 12:10
PROVIDERS: ATTEND Internal Medicine Cardiovascular Disease
DX: I11.0 Hypertensive heart disease with heart failure (principal); I50.22 Chronic systolic (congestive) heart failure; I34.0 Nonrheumatic mitral (valve) insufficiency; I44.7 Left bundle-branch block, unspecified; I42.0 Dilated cardiomyopathy; E78.2 Mixed hyperlipidemia; J84.10 Pulmonary fibrosis, unspecified; I47.1 Supraventricular tachycardia; I65.23 Occlusion and stenosis of bilateral carotid arteries; E66.9 Obesity, unspecified; I49.3 Ventricular premature depolarization; L93.2 Other local lupus erythematosus; M19.90 Unspecified osteoarthritis, unspecified site; F32.A Depression, unspecified; Z68.31 Body mass index [BMI] 31.0-31.9, adult; Z79.890 Hormone replacement therapy
CPT/HCPCS: 33208; 33225; 36415; 71045; 71046; 80048; 80053; 83880; 85027; 85610; 85730; 87081; 93005

== ENCOUNTER → 2022-03-30 | Outpatient (CLI) | payer MEDICARE, MEDICAID ==
[~2022-03-30] MED LIST changes: -HEParin (CATH LAB) 1,000 ML IV ONE; -LIDOCAINE 1% INJ 30 ML (XYLOCAINE) VIAL ONE; -MIDAZOLAM 5 MG/5 ML (VERSED) VIAL ONE; -NS (IVPB) 250 ML ONE; -NS IV 1000 ML 1,000 ML IV ONE; -NS IV 1000 ML 2,000 ML ONE; -VANCOMYCIN 1000 MG/VIAL ONE; -VANCOMYCIN INJECTION 1,000 MG in NS (IVPB) 250 ML IV ONE; -ceFAZolin INJECTION 0 MG ONE; -ceFAZolin INJECTION 1,000 MG VIAL IV ONE; -fentaNYL INJ 100 MCG/2 ML AMP ONE
--- NOTE | 2022-03-30 13:19 | Diagnostic Imaging Report ---
INDICATION: Pacemaker electrode lead displacement. COMPARISON: 03/21/2022. TECHNIQUE: Single radiograph of the chest dated 03/30/2022. FINDINGS: A three-lead pacer device is again identified with battery pack overlying the left chest. Overall appearance appears similar to the prior examination. The cardiac silhouette is within normal limits in size. No significant pulmonary vascular congestion. Chronic interstitial lung changes are again noted within the bilateral lungs without new focal pulmonary opacity. No significant pleural effusion. No pneumothorax. No acute osseous abnormality. IMPRESSION: Left-sided three-lead pacer device is again identified, appearing similar to the prior examination. Background chronic interstitial lung changes without superimposed acute cardiopulmonary abnormality. Dictated by: Dictated on workstation # [id number]
== END ==
LOC: RAD 12:12
PROVIDERS: ATTEND Nurse Practitioner Family
DX: T82.120A Displacement of cardiac electrode, initial encounter (principal)
CPT/HCPCS: 71045

== ENCOUNTER 2022-04-24 07:31 | Day surgery (SDC) | payer MEDICARE, MEDICAID ==
[~2022-04-24] VITALS: Ht 162.6 cm; Wt 81.0 kg
[~2022-04-24 07:31] MED LIST changes: -POTA10CA43 PO; +POTA10CA44 PO
[2022-04-24] MEDS ORDERED: LIDOCAINE 1% INJ 30 ML (XYLOCAINE) VIAL ONE (07:37)
[2022-04-24] MEDS ORDERED: NS IV 1000 ML 2,000 ML ONE (07:37)
[2022-04-24] MEDS ORDERED: HEParin (CATH LAB) 1,000 ML IV ONE (07:37)
[2022-04-24] MEDS ORDERED: NS IV 1000 ML 1,000 ML IV SCH ×2 (07:45→12:00)
[2022-04-24 07:52] VITALS: BP 126/87
[2022-04-24] MEDS ORDERED: ACET325T49 PO (07:56)
[2022-04-24] MEDS ORDERED: ACET-575 PO (07:56)
[2022-04-24 08:07] LABS: HEMATOCRIT 40 % (35-52); HEMOGLOBIN 12.9 g/dL (11.5-16.0); MEAN CORPUSCULAR HEMOGLOBIN 28 pg (25-34); MEAN CORPUSCULAR HGB CONC 32 g/dL (32-36); MEAN CORPUSCULAR VOLUME 87 fL (80-99); MEAN PLATELET VOLUME 9.5 fL (9.0-12.2); PLATELET COUNT 324 10^3/uL (130-400); WHITE BLOOD COUNT 10.3 10^3/uL (4.3-11.0)
[2022-04-24 08:32] LABS: ALBUMIN 4.3 GM/DL (3.2-4.5); BILIRUBIN,TOTAL 0.9 MG/DL (0.1-1.0); CALCIUM 10.1 MG/DL (8.5-10.1); CREATININE SERUM 0.89 MG/DL (0.60-1.30); POTASSIUM 3.9 MMOL/L (3.6-5.0); TOTAL PROTEIN 8.4 GM/DL (6.4-8.2)
[2022-04-24] MEDS ORDERED: fentaNYL INJ 100 MCG/2 ML AMP ONE (09:28)
[2022-04-24] MEDS ORDERED: MIDAZOLAM 5 MG/5 ML (VERSED) VIAL ONE (09:29)
--- NOTE | 2022-04-24 09:32 | Pre-Op Note & Conscious Sedat ---
Pre-Operative Progress Note Date of Available H&P: Mar 25, 2022 Date H&P Reviewed: Apr 24, 2022 Time H&P Reviewed: 09:29 History & Physical: Changes noted below Changes from last HP Patient is an 86-year-old female with a history of a dilated nonischemic cardiomyopathy with an EF approximately 38%, hypertension hyperlipidemia sleep apnea PVCs and left bundle branch block on 03/20/2022 underwent CRTP device implantation. Unfortunately prior to discharge it was noted that her atrial lead had dislodged. Her RV and LV lead are functioning well. She presents today for RA lead revision. She feels that her breathing is significantly better since the device was implanted. She denies symptoms of chest discomfort. She denies PND orthopnea. On exam she is in no acute distress. She has some inspiratory crackles on exam in the bases, she has a 2/6 stock murmur at the left sternal border. At this time we will proceed with RA lead revision of CRTP system. We discussed the possibility of needing to add a new RA lead as opposed to revising the current dislodged lead. I will depend on the function of the current lead in place. We discussed that that could require getting additional access. We do lengthy discussion regarding the details of the procedure as well as the risk of the procedure with the patient and her familychildren. They all verbalized understanding and wished to proceed. I have reviewed labs. Normal creatinine.Laboratory Tests 04/24/22 07:56 Pre-Op Diagnosis: RA lead dislodgment Conscious Sedation Pre-Proced Time 09:33 ASA Score 3 For ASA 3 and 4: Consider anesthesia and medical clearance. Also, for patients with a history of failed moderate sedation consider anesthesia. Airway Lungs Heart ASA score ASA 1: a normal healthy patient ASA 2: a patient with a mild systemic disease (mid diabetes, controlled hypertension, obesity ASA 3: a patient with a severe systemic disease that limits activity (angina, COPD, prior Myocardial infarction) ASA 4: a patient with an incapacitating disease that is a constant threat to life (CHF, renal failure) ASA 5: a moribund patient not expected to survive 24 hrs. (ruptured aneurysm) ASA 6: a declared brain- patient whose organs are being harvested. For emergent operations, add the letter E after the classification Mallampati Classification Grade 3 Sedation Plan Analgesia, Amnesia, Plan communicated to team members, Discussed options with patient/fam, Discussed risks with patient/fam The patient is an appropriate candidate to undergo the planned procedure, sedation, and anesthesia. The patient immediately re-assessed prior to indication. Note patient underwent moderate sedation/conscious sedation with her prior procedure without significant difficulty. JOSE ODOM MD Apr 24, 2022 09:32
--- NOTE | 2022-04-24 09:36 | ICD Implantation ---
ICD-PPM Attending Spine Specialist: Tylor Odom MD Fellow: None Preoperative diagnosis: [RA lead dislodgment] Postoperative diagnosis: Same Procedure(s) Performed: [RA lead revision, fluoroscopy, assessment of other RV and LV pacing leads, Moderate sedation ] Procedure Description: Successful With the patient was sterilely prepped and draped in usual fashion local anesthesia was instilled in the area of her prior incision. Fluoroscopic images were saved in AP VIGIL and CYPRIOT views of her current lead placement in particular RV and LV leads. Incision was then made over prior incision and extended of the device capsule. Capsule and already been started to be created. The capsule was incised. Device did not insert secured to the pectoral fascia. The device was explanted from the pocket. The leads were all secured. The RA lead was disconnected from the ROUTE VENDING MACHINE SERVICER-P generator. Attention was then turned to the RA lead butterfly retention sleep. There were 3 sutures that had to be removed. Once the third suture was finally removed using a 15 blade taking care not to injure the lead or the retention suture sleeve the butterfly was brought back. The lead was freely mobile. It had dislodged and was hanging in the RA. Initially a curved stylette with a large curve was advanced down to the lead however it did not advance there was no "push". There was incredible tortuosity at the Subclavian vein/SVC junction. The sticker stylet was removed and a straight stylet was advanced on the lead. With the straight stylette we were able to advance past that tortuosity and advance the RA lead down towards the IVC. At that point we exchanged out for a large curve stylette. We still had difficulty manipulating the lead into the RA. Therefore that stylet was removed. A smaller curved stylette was advanced down to the RA lead (blue tip). This was able remanipulated and the RA lead was positioned into the RA appendage. The active- fixation mechanism was extended. The lead demonstrated good function. Significant redundancy was had of the lead. As we brought back the curved stylette carefully redundancy accumulated at the subclavian vein/SVC junction. Anticipate this was a part of lead dislodgment in the past. Therefore a straight stylette was advanced past that area advancing that redundancy down towards the lead which should be redundant in the RA. Additional redundancy was added and the stylet was brought back very carefully and slowly with additional redundancy added to that area of subclavian vein/SVC junction hopefully therefore eliminating "pull" on the lead with upright posture, etc. The lead was tested and demonstrated good function. The leads were reassessed and demonstrated good function and showed no evidence of movement from original positions. The lead was secured with 0 Ethibond suture and the retention suture/butterfly. The pocket was flushed with saline solution. A Tyrex pouch was placed around the generator. The pouch would not advance with the generator due to small size pocket in the friction of the Tyrex pouch. Therefore the patch was cut in half and one half of the pouch was placed below the cannula the other half was placed above the generator. The generator was advanced in the pocket without difficulty as well as the leads. Since the capsule had already been created I did not secure the generator. The pocket was then closed in 3 running layers of absorbable suture. Dermabond surgical glue was applied. The patient tolerated the procedure well. Device System: CRTPE generator: MedVeosearch; implanted 03/20/2022; model number W-4 TR 01; serial number OSD [id number] Right atrial leadrevised today: Model #[id number]: Medtronic; original implant date 03/20/2022; serial number PJ and 8 to 09/11/2003 RV lead: Medtronic; model #[id number] 65 8; original implant date 03/20/2022; serial number PJ and [id number] LV lead: Medtronic; model #07866-18; original implant 03/20/2022; serial number Q UC [id number] Lead testing: RA lead New position: P wave sensing 2.5 mV; pacing lead impedance 361 ohms; pacing threshold0.875 V at 0.4 MS RV lead: R waves 20 mV; pacing lead impedance 589 ohms; pacing threshold 1.0 V at 0.4 MS LV lead: Pacing lead impedance 684 ohms pacing threshold 1.7 V at 0.6 MS Final Settings: DDD lower rate limit of 50 ppm and an upper tracking and sensing rate of 120 bpm paced AV delay at 130 ms sensed AV delay 200 ms rate adaptive AV is on V to V intervals is set at 0. Procedure Findings: Adequate testing of device leads Anesthesia: Moderate sedation via RN, I supervised administration of all moderate sedation. The patient tolerated sedation well. Sedation: I was personally responsible for the administration of moderate sedation services during the procedure performed and I confirm requirements described in CPT section on moderate sedation were followed, including the use of an independent trained observer who had no other duties during the procedure and review of personal/family history of sedation complications. After providing fentanyl and midazolam, we achieved moderate conscious sedation, which was maintained throughout the procedure. The hemodynamic parameters, respiratory parameters, as well as neurological status was monitored throughout the procedure by the lab staff and myself. Estimated blood loss: [5 ] mL Complications: None Specimens removed: None Sheaths:[N/A] Recommendations: -PA and lateral chest x-ray tomorrow morning to assess positioning the leads -Assessment of the pacing leads likely via [facility] - Pain control as needed. TYLOR ODOM MD Apr 24, 2022 09:36
[2022-04-24] MEDS ORDERED: MIDAZOLAM 2 MG/2 ML (VERSED) VIAL ONE (11:11)
[2022-04-24 11:50] VITALS: BP 144/74
[2022-04-24 15:55] VITALS: BP 121/64
[2022-04-24 20:00] VITALS: BP 135/68
[2022-04-24 23:42] VITALS: BP 146/73
[2022-04-25 03:08] VITALS: BP 110/59
[2022-04-25 07:37] VITALS: BP 127/62
--- NOTE | 2022-04-25 09:33 | Diagnostic Imaging Report ---
EXAMINATION: Chest 2 view HISTORY: Post left-sided pacemaker. COMPARISON: 03/30/2022. FINDINGS: Left pectoral pacemaker is in place with leads in the appropriate configuration. The lung volumes are normal. No focal consolidation is seen. Chronic appearing interstitial markings are seen in the lateral aspect of the right lung. No large pleural effusion or pneumothorax is seen. The cardiomediastinal silhouette is normal in size and contour. No acute osseous abnormality is seen. IMPRESSION: 1. No acute pleuroparenchymal process. No pneumothorax. 2. Appropriate configuration of a left pectoral pacemaker. Dictated by: Dictated on workstation # [id number]
--- NOTE | 2022-04-25 11:51 | Progress Note - Cardiology ---
Cardiology SOAP Progress Note Subjective: No cp or palp or syncope or shortness of breath No n/v/d No focal weakness Objective: I&O/Vital Signs 04/25/22 04/25/22 04/25/22 04/25/22 01:00 03:08 07:00 07:37 Temp 36.4 36.6 Pulse 80 73 70 73 Resp 16 24 B/P (MAP) 110/59 (76) 127/62 (83) Pulse Ox 97 97 O2 Delivery Room Air Room Air Weight (Pounds): 175 Weight (Ounces): 0.0 Weight (Calculated Kilograms): 79.388122 Device Insertion Site: without hematoma Bruising: mild bruising Constitutional: AAO x 3, well-developed, well-nourished Respiratory: No accessory muscle use; chest expansion is symmetric, other (good, bilat air entry) Cardiovascular: regular rate-rhythm, S1 and S2, systolic murmur (soft PHILIP at card base) Gastrointestional: No tender; soft; No guarding, No rebound; audible bowel sounds Extremities: No clubbing, No cyanosis, No significant edema Neurologic/Psychiatric: oriented x 3, other (moves all limbs equally, L arm in sling) Skin: No rash on exposed areas, No ulcerations on exposed areas Results/Procedures: Labs Microbiology 04/24/22 MRSA Screen - Final, Complete MRSA not isolated Laboratory Tests 04/24/22 07:56 A/P: Assessment: Atrial lead revision of patient's TRANSPLANT REGISTERED NURSE-P by Dr Feliciano on 04/24/22 - functioning normally on interrogation of 04/25/22 and CXR does not show any PTX Shortness of breath, NYHA III CHF - multifactorial, likely due to pulm fibrosis, reactive airways disease, and emphysema (and possible RAN) that is being followed by Pulmonary services - PFTs of 01/22/16 show mod obstructive defect with some reversibility with bronchodilators - Echo of 04/26/19 showed LVEF 50-55%, paradoxical septal motion, mild dilated LA, mild MR, RVSP 30 mmHg - Home sleep study on 01/02/21 reported be normal, but she says she never slept - Echo of 02/13/21: LVEF 40-45, mild diffuse hypokinesis, mild MR, PASP 35 mmHg - Complete heart cath on 03/11/21: no evidence of R or L heart failure, normal LVEDP, no significant CAD - Echo 02/03/22: LVEF 30-35%, mod MR, triv AI, PASP 35-40 mmHg - MUGA 02/10/22: mild global hypokinesis, LVEF 38% - s/p TRANSPLANT REGISTERED NURSE-P by Dr Feliciano on 03-20-22. Interrogation on 03-25-22 shows atrial lead noncapture and intermittent failure to sense. RV and LV leads working normally - atrial lead revision by Dr Feliciano on 04/24/22 Hypertension - controlled Medication Intolerances - Intolerance to Trilipix, pravastatin and Lipitor due to muscle and joint discomfort - Relative intolerance to beta blockers on account of exacerbation of reactive airways disease GI - Gastritis, duodenitis, HH and diverticulosis and a h/o H Pylori, managed by Dr Cary and Dr Villalba - History of hemorrhoids Hyperlipidemia - primarily consisting of hypertriglyceridemia - Intolerant to Trilipex, pravastatin and Lipitor d/t muscle and joint discomfort Chronic left bundle branch block with paradoxical septal motion - Cardiac cath of 11/17/16: No significant CAD, LVEF 60%, normal right heart press ures, normal LVEDP SVT - History of premature atrial and ventricular contractions, asymptomatic - History of brief runs of supraventricular tachycardia, none for several years, has been on chronic digoxin Ortho - Degenerative joint disease - Left total knee replacement by Dr. Prakash September 2010 - Chronic neck and back pain, managed by pcp - surgery for uterine prolapse, bladder elevation surgery History of cutaneous lupus - which has been treated with surgery and she has followed with her electric meter technician, Dr. Castillo H/o depression - currently well controlled on low dose Zoloft Carotid dz - Mild carotid arterial disease on carotid u/s of 04/26/19 Plan: * Lead and device functioning normally. She wishes to go home. I reviewed the pacemaker interrogation data. I communicated with Dr Feliciano * Ok to d/c to home today. Outpt f/u advised. She has f/u apptt for next week TRISHA WANG MD [facility] Apr 25, 2022 11:51
[2022-04-25 12:07] VITALS: BP 127/62
== END 2022-04-25 11:45 | disposition home or self-care (01) ==
LOC: CATH 07:31 → CSD 11:48 → CATH 04-25 11:45
PROVIDERS: ATTEND Internal Medicine Cardiovascular Disease
DX: T82.120A Displacement of cardiac electrode, initial encounter (principal); E66.9 Obesity, unspecified; M19.90 Unspecified osteoarthritis, unspecified site; F32.A Depression, unspecified; E78.2 Mixed hyperlipidemia; I47.1 Supraventricular tachycardia; I49.1 Atrial premature depolarization; I45.19 Other right bundle-branch block; G47.33 Obstructive sleep apnea (adult) (pediatric); I11.0 Hypertensive heart disease with heart failure; I42.0 Dilated cardiomyopathy; I50.9 Heart failure, unspecified; Y71.1 Therapeutic (nonsurgical) and rehabilitative cardiovascular devices associated with adverse incidents; Z68.30 Body mass index [BMI] 30.0-30.9, adult; Z79.899 Other long term (current) drug therapy
CPT/HCPCS: 33215; 36415; 71046; 80053; 85027; 87081

== ENCOUNTER → 2022-05-26 | Outpatient (CLI) | payer MEDICARE, MEDICAID ==
[~2022-05-26] MED LIST changes: +ACET-575 PO; +ACET325T49 PO; +ALBU90AE IH
== END ==
LOC: ORTHO 13:26
PROVIDERS: ATTEND Orthopaedic Surgery
DX: M17.11 Unilateral primary osteoarthritis, right knee (principal)
CPT/HCPCS: 20610

== ENCOUNTER 2022-05-27 05:38 | Outpatient (CLI) | payer MEDICARE, MEDICAID ==
[~2022-05-27] VITALS: Ht 162.6 cm; Wt 80.7 kg
[~2022-05-27 05:38] MED LIST changes: -ALBU90AE IH
[2022-05-27] MEDS ORDERED: ALBU90AE IH (13:03)
== END 2022-05-27 13:08 | disposition home or self-care (01) ==
LOC: PREOP 05:38
PROVIDERS: ATTEND Surgery
DX: Z01.818 Encounter for other preprocedural examination (principal)

== ENCOUNTER 2022-06-05 12:07 | Day surgery (SDC) | payer MEDICARE, MEDICAID ==
[~2022-06-05] VITALS: Ht 162 cm; Wt 80.7 kg
[~2022-06-05 12:07] MED LIST changes: +ALBU90AE IH
[2022-06-05] MEDS ORDERED: LACTATED RINGERS 1,000 ML IV STA (12:39)
[2022-06-05] MEDS ORDERED: HURRICAINE EXT TUBE (BENZOCAINE) XX PRN (12:45)
[2022-06-05 13:00] VITALS: BP 166/95
--- NOTE | 2022-06-05 14:09 | Progress Note-Pre Operative ---
Pre-Operative Progress Note Date H&P Reviewed: Jun 05, 2022 Time H&P Reviewed: 14:08 History & Physical: H&P Reviewed, Patient Examed, Changes noted below Changes from last HP GERD- Risk aand benefits discussed for EGD as well as Colonoscopy Pre-Operative Diagnosis: Blood in Stool and GERD REINIER ADEN DO Jun 05, 2022 14:09
[2022-06-05] MEDS ORDERED: MIDAZOLAM 2 MG/2 ML (VERSED) VIAL ONE (14:43)
[2022-06-05] MEDS ORDERED: PROPOFOL INJECTION 50 ML IV ONE (14:43)
[2022-06-05] MEDS ORDERED: PHENYLEPHRINE 100 MCG/ML 10 ML (ANESTHESIA) SYR ONE (14:57)
--- NOTE | 2022-06-05 15:22 | Progress Note-Post Operative ---
Post-Operative Progess Note Surgeon (s)/Housing Grant Analyst (s) Surgeon REINIER ADEN DO Housing Grant Analyst: N/A Pre-Operative Diagnosis Blood in Stool and GERD Post-Operative Diagnosis Hiatal Hernia Antral Gastritis Hemorrhoids Rectal Polyp Procedure & Operative Findings Date of Procedure 06/05/22 Procedure Performed/Findings EGD w/ Biopsies Colonoscopy with hot biopsy polypectomy x1 Anesthesia Type per WOVEN PAPER HAT MENDER Estimated Blood Loss Estimated blood loss (mL): None Specimens/Packing Specimens Removed Antrum; GEJ; Rectum REINIER ADEN DO Jun 05, 2022 15:22
[2022-06-05] MEDS ORDERED: PANT40TA2 PO (15:24)
--- NOTE | 2022-06-05 15:24 | Anesthesia-General Post-Op ---
MAC Patient Condition Mental Status/LOC: Same as Preop Cardiovascular: Satisfactory Nausea/Vomiting: Absent Respiratory: Satisfactory Pain: Controlled Complications: Absent Post Op Complications Complications None Follow Up Care/Instructions Patient Instructions None needed. Anesthesiology Discharge Order Discharge Order Patient is doing well, no complaints, stable vital signs, no apparent adverse anesthesia problems. No complications reported per nursing. TRINIDAD CORENLIUS CRNA Jun 05, 2022 15:23
[2022-06-05 15:25] VITALS: BP 104/53
--- NOTE | 2022-06-05 15:25 | Discharge Inst-Simple/Standard ---
Discharge Inst-Standard Patient Instructions/Follow Up Plan of Care/Instructions/FU: Follow up in 2 weeks with Raeann Activity as Tolerated: Yes Discharge Diet: No Restrictions REINIER ADEN DO Jun 05, 2022 15:25
[2022-06-05 15:30] VITALS: BP 138/63
[2022-06-05 15:35] VITALS: BP 138/63
[2022-06-05 16:05] VITALS: BP 138/63
--- NOTE | 2022-06-05 22:20 | OPERATIVE REPORT ---
DATE OF SERVICE: 06/05/2022 PREOPERATIVE DIAGNOSES: Gastroesophageal reflux disease and hematochezia. POSTOPERATIVE DIAGNOSES: Hiatal hernia, antral gastritis, hemorrhoids and rectal polyp. PROCEDURES: EGD with biopsies, colonoscopy with hot biopsy polypectomy x1. SURGEON: Reinier Cary DO ANESTHESIA: Per ROPE COILING MACHINE OPERATOR. ESTIMATED BLOOD LOSS: None. COMPLICATIONS: None. INDICATIONS: The patient is an 86-year-old female with GERD symptoms and hematochezia. She understands risks and benefits of procedure and wishes to proceed. Consent was signed and on chart. DESCRIPTION OF PROCEDURE: The patient was taken to endoscopy suite, placed in left lateral recumbent position. Timeout was performed. Scope was inserted in the mouth, down the esophagus, stomach and into the duodenum without difficulty. No polyps, masses or ulcerations within the duodenum. Scope was then slowly retracted back into the stomach where it was further insufflated. Biopsy of the antrum was obtained also noting some antral gastritis. Scope was retroflexed noting a hiatal hernia, no other pathology. Scope was returned to its normal position, slowly withdrawn until distal esophagus. Biopsy of the GE junction was obtained. Scope was slowly retracted back until completely removed noting no other pathology. Digital rectal exam was performed noting large hemorrhoids. No palpable polyps, masses or ulcerations. Scope was inserted in the rectum, advanced all the way to the cecum with minimal difficulty. Prep was adequate. Scope was then slowly retracted back. No polyps, masses or ulcerations within the cecum, ascending, transverse, descending and sigmoid colon. Some diverticulosis present throughout the entire colon. There was a flat polyp in the rectum, which hot biopsy polypectomy was performed. Scope was retroflexed noting no other pathology. Scope was returned to its normal position, slowly withdrawn until completely removed. The patient tolerated the procedure well without complications, taken to recovery room in stable condition. RECOMMENDATIONS: The patient was started on Protonix 40 mg daily to see if this improve any of her symptoms. From the bleeding either likely diverticular or from her hemorrhoids. We will follow up on pathology. The patient due to age does not need any further colonoscopies unless symptomatic. Job ID: [id number] DocumentID: [id number] Dictated Date: 06/05/2022 15:25:25 Rock Mason Apprentice Date: 06/05/2022 22:19:00 Dictated By: REINIER CARY DO [facility]
== END 2022-06-05 16:10 | disposition home or self-care (01) ==
LOC: ENDO 12:07
PROVIDERS: ATTEND Surgery
DX: K92.1 Melena (principal); K29.70 Gastritis, unspecified, without bleeding; K62.1 Rectal polyp; K21.00 Gastro-esophageal reflux disease with esophagitis, without bleeding; K44.9 Diaphragmatic hernia without obstruction or gangrene; K57.30 Diverticulosis of large intestine without perforation or abscess without bleeding; K64.9 Unspecified hemorrhoids; Z86.19 Personal history of other infectious and parasitic diseases; E66.9 Obesity, unspecified; Z68.30 Body mass index [BMI] 30.0-30.9, adult
CPT/HCPCS: 88305

== ENCOUNTER 2022-07-08 11:12 | Outpatient (RCR) | payer MEDICARE, MEDICAID ==
[~2022-07-08 11:12] MED LIST changes: +PANT40TA2 PO
== END 2022-07-10 | disposition home or self-care (01) ==
LOC: CR 11:12
PROVIDERS: ATTEND Internal Medicine Cardiovascular Disease
DX: I50.9 Heart failure, unspecified (principal)
CPT/HCPCS: 93798

== ENCOUNTER 2022-08-07 11:11 | Outpatient (RCR) | payer MEDICARE, MEDICAID | END 2022-08-09 | disposition home or self-care (01) | LOC: CR 11:11 | PROVIDERS: ATTEND Internal Medicine Cardiovascular Disease | DX: I50.9 Heart failure, unspecified (principal) | CPT/HCPCS: 93798 ==

== ENCOUNTER 2022-08-26 11:14 | Outpatient (RCR) | payer MEDICARE, MEDICAID | END 2022-09-09 | disposition home or self-care (01) | LOC: CR 11:14 | PROVIDERS: ATTEND Internal Medicine Cardiovascular Disease | DX: Z29.8 Encounter for other specified prophylactic measures (principal); I50.9 Heart failure, unspecified | CPT/HCPCS: 93798 ==

== ENCOUNTER 2022-09-16 11:21 | Outpatient (RCR) | payer MEDICARE, MEDICAID ==
[~2022-09-16 11:21] MED LIST changes: -LOSA100T57 PO; +LOSA100T58 PO
== END 2022-10-09 | disposition home or self-care (01) ==
LOC: CR 11:21
PROVIDERS: ATTEND Internal Medicine Cardiovascular Disease
DX: Z29.8 Encounter for other specified prophylactic measures (principal); I50.9 Heart failure, unspecified
CPT/HCPCS: 93798

== ENCOUNTER → 2022-09-23 | Outpatient (CLI) | payer MEDICARE, MEDICAID ==
[~2022-09-23] MED LIST changes: -POTA10CA44 PO; +POTA10CA84 PO
== END ==
LOC: ORTHO 10:00
PROVIDERS: ATTEND Orthopaedic Surgery
DX: M17.11 Unilateral primary osteoarthritis, right knee (principal); I10 Essential (primary) hypertension; I25.10 Atherosclerotic heart disease of native coronary artery without angina pectoris; E78.2 Mixed hyperlipidemia; E66.9 Obesity, unspecified; J43.9 Emphysema, unspecified
CPT/HCPCS: 20610

== ENCOUNTER → 2022-11-24 | Outpatient (CLI) | payer MEDICARE, MEDICAID | LOC: ORTHO 13:06 | PROVIDERS: ATTEND Orthopaedic Surgery | DX: M17.11 Unilateral primary osteoarthritis, right knee (principal); R06.00 Dyspnea, unspecified | CPT/HCPCS: 99213 ==

== ENCOUNTER 2022-12-28 13:44 | Emergency (ER) | payer MEDICARE, MEDICAID ==
[~2022-12-28] VITALS: Ht 162.6 cm; Wt 79.4 kg
--- NOTE | 2022-12-28 14:02 | ED Abdominal Pain ---
General Chief Complaint: Abdominal/GI Problems Stated Complaint: DIARRHEA | PACEMAKER | SOB Source of Information: Patient Exam Limitations: No Limitations (HIRAM MAYNARD) History of Present Illness Date Seen by Provider: Dec 28, 2022 Time Seen by Provider: 13:59 Initial Comments Patient is a 87-year-old female with a history of A-fib, pacemaker IBS, coronary artery disease who presents to ED with weakness fatigue, diarrhea, abdominal camping and shortness of breath. She states diarrhea started about 2 to 3 weeks. 6-8 episodes daily. Denies of any bloody or mucousy stool. Generalized abdominal cramping with the diarrhea. No recent antibiotic use. She states she has been feeling short of breath with exertion and with lying down. Denies of any fluid retention. Denies of any specific chest pain. She states she does have a history of shortness of breath which did improve after she had her pacemaker placed last year. She has been seen at [facility] with a negative urinalysis, COVID test. They sent patient here to the ED for further evaluation. She states she feels really weak and fatigued. Every time she eats she has diarrhea. Has been taking Pepto-Bismol without much improvement. History of diverticulitis. Denies of any urinary symptoms. Denies chest pain, fever sore throat, ear pain, headache, dizziness,, cough, and vomiting. (HIRAM MAYNARD) Allergies and Home Medications Allergies Coded Allergies: Oynzbql-LVR-UlX Reductase Inhibitor (Verified Allergy, Severe, MUSCLE WEAKNESS, 11/29/18) Penicillins (Verified Allergy, Intermediate, RASH/SWELLING, 11/29/18) Sulfa (Sulfonamide Antibiotics) (Verified Allergy, Mild, RASH, 11/29/18) Patient Home Medication List Home Medication List Reviewed: Yes (HIRAM MAYNARD) Acetaminophen (Acetaminophen) 325 Mg Tablet, 325 MG PO HS, (Reported) Entered as Reported by: PRADEEP TA on 04/24/22 0756 Acetaminophen/Diphenhydramine (Acetaminophen Pm Caplet) 500 Mg-25 Mg Tablet, 1 EACH PO HS, (Reported) Entered as Reported by: PRADEEP TA on 04/24/22 0756 Albuterol Sulfate (Proair Respiclick) 90 Mcg Aer.pow.ba, 2 PUFF IH Q4H PRN for WHEEZING, (Reported) Entered as Reported by: RAYA LINN on 05/27/22 1303 Carvedilol (Carvedilol) 3.125 Mg Tablet, 3.125 MG PO BID, (Reported) Entered as Reported by: PRADEEP TA on 03/20/22 0754 Losartan Potassium (Losartan Potassium) 50 Mg Tablet, 50 MG PO DAILY, (Reported) Entered as Reported by: PRADEEP TA on 03/20/22 0754 Pantoprazole Sodium (Protonix) 40 Mg Tablet.dr, 40 MG PO DAILY Prescribed by: REINIER ADEN on 06/05/22 1524 Spironolactone (Spironolactone) 25 Mg Tablet, 25 MG PO DAILY, (Reported) Entered as Reported by: PRADEEP TA on 03/20/22 0754 Review of Systems Review of Systems Constitutional: No diaphoresis; malaise, weakness EENTM: No Blurred Vision Respiratory: SOA at Rest Gastrointestinal: Abdominal Pain, Diarrhea; Denies Nausea Genitourinary: Denies Burning, Denies Discharge Musculoskeletal: No joint pain Skin: No change in color, No change in hair/nails (HIRAM MAYNARD) All Other Systems Reviewed Negative Unless Noted: Yes (HIRAM MAYNARD) Past Ebdyuzx-Ujigxt-Pxnytt Hx Immunizations Up To Date First/Initial COVID19 Vaccinat: yes Second COVID19 Vaccination Tavo: yes Third COVID19 Vaccination Date: yes (HIRAM MAYNARD) Seasonal Allergies Seasonal Allergies: Yes (HIRAM MAYNARD) Past Medical History Surgeries: Yes (HEMORRHOID, TOTAL KNEE REPLACEMENT--SEE VERY EXTENSIVE LIST PROVIDED BY PT) Bladder Surgery, Section, Eye Surgery, Gallbladder, Hysterectomy, Joint Replacement, Orthopedic, Pacemaker Respiratory: Yes (HAS "SPOTS" ON LUNGS) Asthma, COPD Cardiac: Yes (LBBB, CHF, Labile blood pressures, pacemaker) High Cholesterol, Hypertension Neurological: No Reproductive Disorders: No 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 Sexually Transmitted Disease: No HIV/AIDS: No Genitourinary: No Gastrointestinal: Yes (CONSTIPATION) Chronic Constipation, Hemorrhoids, Irritable Bowel Musculoskeletal: Yes (OSTEOARTHRITIS) Arthritis Endocrine: No HEENT: Yes (GLASSES, PARTIAL DENTURES) Cancer: No Psychosocial: Yes Anxiety, Depression Integumentary: No Blood Disorders: No Adverse Reaction/Blood Tranf: No (N/A) (HIRAM MAYNARD) Physical Exam Vital Signs Vital Signs - First Documented 12/28/22 12/28/22 13:50 16:45 Temp 36.9 Pulse 89 Resp 14 B/P (MAP) 143/80 (101) Pulse Ox 96 O2 Delivery Room Air (BALDEV,GILLIAN K DO) Vital Signs Capillary Refill : (HIRAM MAYNARD) Height/Weight/BMI Height: 5'4.00" Weight: 175lbs. 0.0oz. [id number]; 30.74 BMI Method:Stated General Appearance: WD/WN, no apparent distress HEENT: PERRL/EOMI, normal ENT inspection, TMs normal, pharynx normal Neck: non-tender, full range of motion, supple Respiratory: chest non-tender, lungs clear, normal breath sounds, no resp iratory distress, no accessory muscle use Cardiovascular: regular rate, rhythm, no edema, no gallop, no JVD Gastrointestinal: normal bowel sounds, soft, tenderness (Generalized tenderness.) Extremities: normal range of motion, non-tender, normal inspection, no pedal edema Back: normal inspection, no CVA tenderness Neurologic/Psychiatric: cigar head holer II-XII nml as tested, no motor/sensory deficits, alert, normal mood/affect, oriented x 3 Skin: normal color, warm/dry (HIRAM MAYNARD) Progress/Results/Core Measures Results/Orders Lab Results Laboratory Tests Test 12/28/22 13:54 12/28/22 16:01 Range/Units White Blood Count 10.7 4.3-11.0 10^3/uL Red Blood Count 4.50 3.80-5.11 10^6/uL Hemoglobin 12.6 11.5-16.0 g/dL Hematocrit 40 35-52 % Mean Corpuscular Volume 89 80-99 fL Mean Corpuscular Hemoglobin 28 25-34 pg Mean Corpuscular Hemoglobin Concent 32 32-36 g/dL Red Cell Distribution Width 14.0 10.0-14.5 % Platelet Count 359 130-400 10^3/uL Mean Platelet Volume 9.9 9.0-12.2 fL Immature Granulocyte % (Auto) 1 % Neutrophils (%) (Auto) 55 42-75 % Lymphocytes (%) (Auto) 31 12-44 % Monocytes (%) (Auto) 10 0-12 % Eosinophils (%) (Auto) 4 0-10 % Basophils (%) (Auto) 1 0-10 % Neutrophils # (Auto) 5.9 1.8-7.8 10^3/uL Lymphocytes # (Auto) 3.3 1.0-4.0 10^3/uL Monocytes # (Auto) 1.0 0.0-1.0 10^3/uL Eosinophils # (Auto) 0.4 H 0.0-0.3 10^3/uL Basophils # (Auto) 0.1 0.0-0.1 10^3/uL Immature Granulocyte # (Auto) 0.1 0.0-0.1 10^3/uL Prothrombin Time 14.0 12.2-14.7 SEC INR Comment 1.1 0.8-1.4 Activated Partial Thromboplast Time 39 H 24-35 SEC Sodium Level 135 135-145 MMOL/L Potassium Level 4.5 3.6-5.0 MMOL/L Chloride Level 101 98-107 MMOL/L Carbon Dioxide Level 22 21-32 MMOL/L Anion Gap 12 5-14 MMOL/L Blood Urea Nitrogen 15 7-18 MG/DL Creatinine 0.94 0.60-1.30 MG/DL Estimat Glomerular Filtration Rate 59 BUN/Creatinine Ratio 16 Glucose Level 100 70-105 MG/DL Calcium Level 10.3 H 8.5-10.1 MG/DL Corrected Calcium 10.1 8.5-10.1 MG/DL Magnesium Level 2.1 1.6-2.4 MG/DL Total Bilirubin 0.8 0.1-1.0 MG/DL Aspartate Amino Transf (AST/SGOT) 24 5-34 U/L Alanine Aminotransferase (ALT/SGPT) 15 0-55 U/L Alkaline Phosphatase 52 40-136 U/L Troponin I 0.033 H < 0.028 <0.028 NG/ML C-Reactive Protein High Sensitivity 0.29 0.00-0.50 MG/DL B-Type Natriuretic Peptide 27.4 <100.0 PG/ML Total Protein 8.4 H 6.4-8.2 GM/DL Albumin 4.3 3.2-4.5 GM/DL Lipase 12 8-78 U/L (GILLIAN DE PAZ DO) Medications Given in ED Current Medications Medications Dose Ordered Sig/Diana Route Start Time Stop Time Status Last Admin Dose Admin Aspirin 324 mg ONCE ONCE PO 12/28/22 15:00 12/28/22 15:01 DC 12/28/22 15:48 324 MG Iohexol 100 ml ONCE ONCE IV 12/28/22 14:45 12/28/22 14:46 DC 12/28/22 15:14 80 ML Sodium Chloride 100 ml ONCE ONCE IV 12/28/22 14:45 12/28/22 14:46 DC 12/28/22 15:14 80 ML (GILLIAN DE PAZ DO) Vital Signs/I&O 12/28/22 12/28/22 13:50 16:45 Temp 36.9 Pulse 89 71 Resp 14 16 B/P (MAP) 143/80 (101) 146/89 Pulse Ox 96 O2 Delivery Room Air Room Air (GILLIAN DE PAZ DO) Comment Ventricular paced rhythm, 81 bpm, QRS duration 131 MS, QTc 427 MS (HIRAM MAYNARD) Departure Communication (PCP) Reviewed previous ER visits, H&P, lab testing. History of mitral valve disease, pacemaker, CHF, coronary artery disease, IBS who presents ED for diarrhea for the past 2 to 3 weeks. 6-8 episodes of watery stool. Denies any blood or mucus. Generalized abdominal discomfort. She also reports over that duration she has had shortness of breath. No chest pain. Shortness of breath with exertion and lying down. Denies of any recent antibiotic use. No fever chills body aches. She states she feels weak and fatigued. She had a negative outpatient COVID influenza. Negative outpatient urinalysis. She states she may feel dehydrated. Patient Was seen at urgent care and sent to the ED for further evaluation. On arrival vital signs were stable. Cardiac work-up was initiated for the shortness of breath. Did add stool cultures. EKG showed ventricular paced rhythm. CBC, CMP grossly unremarkable. Troponin 0.033, normal BNP. Chest x-ray negative for acute abnormality. Stable x-ray. She did have some mild generalized tenderness on exam. Due to continued diarrhea rule out diverticulitis, colitis CT abdomen pelvis was ordered which was unremarkable. Interrogate her pacemaker here in the ED without any acute arrhythmia or concerns. Patient had a cardiac cath in 2020 which did not show any significant myocardial ischemia. Patient had a stress test performed last year which showed mild global hypokinesia with ejection fraction 38%. Patient follows Dr. Plunkett cardiology. Due to slight elevated troponin patient received full 324 aspirin. Currently on Eliquis. Consulted with Dr. Gabriel jack machine operator regarding the troponin and shortness of breath. At this time he did not seem concerned and recommended no admission for further evaluation. Suggest giving a dose of Lasix. She does have Lasix to take at home as needed. She refused Lasix. I do not appreciate of any lower extremity swelling. Rechecked her troponin at 2 hours which was unremarkable. She did receive a liter of fluid. Does not appear to be infectious related. Since patient was not able to provide a stool culture we will order outpatient labs to return stool. No antibiotics at this time. History of IBS. Not currently on medication for IBS. Recommend continue oral hydration. Discussed Imodium. Recommend follow-up with PCP in 2 to 3 days for reevaluation. If any worsening symptoms return back to ED. (HIRAM MAYNARD) Impression Primary Impression: Diarrhea Additional Impression: Shortness of breath Disposition: 01 HOME, SELF-CARE Condition: Stable Departure-Patient Inst. Decision time for Depature: 15:59 (HIRAM MAYNARD) Referrals: SHYLA WALLACE DO (PCP/Family) Primary Care Physician Patient Instructions: Diarrhea in adolescents and adults Add. Discharge Instructions: Provided outpatient orders for diarrhea. May take a sample to the lab. Recommend Imodium. Follow-up your PCP for further evaluation. All discharge instructions reviewed with patient and/or family. Voiced understanding. ATTENDING PHYSICIAN NOTE: I WAS PHYSICALLY PRESENT ER PHYSICIAN, BUT I WAS NOT INVOLVED IN ANY DECISION MAKING OR ANY CARE OF THIS PATIENT AND I AM NOT COLLABORATING PHYSICIAN. (GILLIAN DE PAZ DO) HIRAM MAYNARD Dec 28, 2022 14:02 GILLIAN DE PAZ DO Dec 28, 2022 17:27
[2022-12-28] MEDS ORDERED: NS IV 1000 ML 1,000 ML IV STA (14:04)
[2022-12-28 14:06] LABS: BASOPHILS # (AUTO) 0.1 10^3/uL (0.0-0.1); BASOPHILS % (AUTO) 1 % (0-10); EOSINOPHILS # (AUTO) 0.4 10^3/uL (0.0-0.3); EOSINOPHILS % (AUTO) 4 % (0-10); HEMATOCRIT 40 % (35-52); HEMOGLOBIN 12.6 g/dL (11.5-16.0); LYMPHOCYTES # (AUTO) 3.3 10^3/uL (1.0-4.0); LYMPHOCYTES % (AUTO) 31 % (12-44); MEAN CORPUSCULAR HEMOGLOBIN 28 pg (25-34); MEAN CORPUSCULAR HGB CONC 32 g/dL (32-36); MEAN CORPUSCULAR VOLUME 89 fL (80-99); MEAN PLATELET VOLUME 9.9 fL (9.0-12.2); MONOCYTES % (AUTO) 10 % (0-12); NEUTROPHILS # (AUTO) 5.9 10^3/uL (1.8-7.8); NEUTROPHILS % (AUTO) 55 % (42-75); PLATELET COUNT 359 10^3/uL (130-400); WHITE BLOOD COUNT 10.7 10^3/uL (4.3-11.0)
[2022-12-28 14:14] LABS: ALBUMIN 4.3 GM/DL (3.2-4.5)
[2022-12-28 14:15] LABS: POTASSIUM 4.5 MMOL/L (3.6-5.0)
[2022-12-28 14:16] LABS: CALCIUM 10.3 MG/DL (8.5-10.1)
[2022-12-28 14:17] LABS: INR 1.1 (0.8-1.4); TOTAL PROTEIN 8.4 GM/DL (6.4-8.2)
[2022-12-28 14:19] LABS: BILIRUBIN,TOTAL 0.8 MG/DL (0.1-1.0)
[2022-12-28 14:21] LABS: CREATININE SERUM 0.94 MG/DL (0.60-1.30)
[2022-12-28 14:24] LABS: MAGNESIUM 2.1 MG/DL (1.6-2.4)
--- NOTE | 2022-12-28 14:43 | Diagnostic Imaging Report ---
INDICATION: Abdominal pain, diarrhea. Increased shortness of air x2-3 weeks. COMPARISON: 04/25/2022 FINDINGS: Single frontal radiographic view of the chest was obtained and shows normal cardiac silhouette and pulmonary vasculature. Lungs continue to show diffuse coarse interstitial opacities. These may be chronic. There is no large effusion or pneumothorax. Left-sided multi lead pacemaker is again noted. Osseous structures show no acute abnormalities. IMPRESSION: 1. Stable exam of the chest as above. Dictated by: Dictated on workstation # [id number]
[2022-12-28] MEDS ORDERED: NS 100 ML (IVPB) BAG IV ONE (14:45)
[2022-12-28] MEDS ORDERED: IOHEXOL 350 MG/ML 100 ML (OMNIPAQUE 350) VIAL IV ONE (14:45)
[2022-12-28] MEDS ORDERED: ASPIRIN 81 MG CHEWABLE TABLET PO ONE (15:00)
--- NOTE | 2022-12-28 15:33 | Diagnostic Imaging Report ---
PROCEDURE: CT abdomen and pelvis with contrast. TECHNIQUE: Multiple contiguous axial images were obtained through the abdomen and pelvis after administration of intravenous contrast. Auto Exposure Controls were utilized during the CT exam to meet ALARA standards for radiation dose reduction. All CT scans use one or more of the following dose optimizing techniques: automated exposure control, MA and/or KvP adjustment based on patient size and exam type or iterative reconstruction. INDICATION: Left lower quadrant abdominal pain. COMPARISON: 12/09/2020. FINDINGS: Coarse chronic fibrotic findings are again noted in the basilar aspect of the lungs. No focal hepatic abnormalities identified. Gallbladder is surgically absent without significant biliary ductal dilatation. Note is made of mild hiatal hernia. No definite splenic, pancreatic or adrenal gland abnormality is identified. Kidneys are stable and unremarkable in appearance. There is no free fluid in the abdomen and pelvis. There is no evidence of bowel obstruction. No organized fluid collection or focal inflammation is seen. Small focal region of increased density seen along the anterior aspect of the descending colon may represent scarring from previous inflammation. There is stable lumbar spondylosis. IMPRESSION: No definite acute abnormality or adverse change is identified. Dictated by: Dictated on workstation # [id number]
[2022-12-28 16:45] VITALS: BP 146/89
== END 2022-12-28 16:47 | disposition home or self-care (01) ==
LOC: EDUNIT# 13:44 → ER 13:46
DX: R19.7 Diarrhea, unspecified (principal); R06.02 Shortness of breath; R10.84 Generalized abdominal pain; Z79.01 Long term (current) use of anticoagulants; Z87.19 Personal history of other diseases of the digestive system
CPT/HCPCS: 36415; 71045; 74177; 80053; 83690; 83735; 83880; 84484; 85025; 85610; 85730; 86141; 93005